=== PATIENT | female | born 1940 | race Caucasian/White ===

== ENCOUNTER → 2017-12-03 10:46 | Outpatient (CLI) | payer MEDICARE, OTHER, SELFPAY ==
[2017-12-03 12:32] LABS: Anion Gap 4 (5-15); BUN 13 mg/dL (7-18); BUN/Creat Ratio 27.3 RATIO (10-20); Calcium,Total 9.8 mg/dL (8.5-10.1); Chloride 102 mmol/L (98-107); Creatinine, Serum 0.48 mg/dL (0.55-1.02); EST Glomerular Filtration Rate 135 mL/min (>60); Est Glom Filt Rate - Afr Amer 163 mL/min (>60); Glucose 89 mg/dL (74-106); Magnesium 1.8 mg/dL (1.6-2.6); Potassium 4.2 mmol/L (3.5-5.1); Sodium Level 138 mmol/L (136-145); Thyroid Stim Hormone (TSH) 1.09 uIU/mL (0.358-3.74)
== END ==
PROVIDERS: Family Provider Family Medicine; PCP Family Medicine; Visit Provider Internal Medicine Cardiovascular Disease
DX: I48.0 Paroxysmal atrial fibrillation (principal)
CPT/HCPCS: 36415; 80048; 83735; 84443

== ENCOUNTER → 2017-12-30 13:11 | Outpatient (CLI) | payer MEDICARE, OTHER, SELFPAY ==
--- NOTE | 2017-12-30 13:16 | RAD_ITS ---
STUDY: X-RAY CHEST REASON FOR EXAM: Female, 77 years old. History of pneumonia and COPD TECHNIQUE: PA and lateral views of the chest. COMPARISON: 09/26/2017 FINDINGS: There is hyperinflation of the lungs consistent with chronic obstructive lung disease (COPD). Stable scarring in the lingula. Mild pleural thickening, resolution of bibasilar opacification. There is no demonstrated pleural abnormality. Normal size heart. Normal mediastinum and chris. Normal visualized pulmonary arteries. There is atherosclerotic calcification of the aortic arch with tortuosity. There is demineralization of the osseous structures. Stable loss of vertebral body height of mid and lower thoracic spine. Normal visualized ribs, clavicles, and shoulders. There is no demonstrated abnormality of the visualized soft tissue structures of the upper abdomen. RAD/Chest PA and Lateral IMPRESSION: Stable COPD with scarring. No pulmonary edema, congestive heart failure or confluent pneumonia. Stable osteoporosis, loss of vertebral body height, arteriosclerosis. Electronically Signed: Dilma Cueva MD at 5:05 EDT , Service support ,
== END ==
PROVIDERS: Family Provider Family Medicine; PCP Family Medicine; Visit Provider Internal Medicine Pulmonary Disease
DX: J44.9 Chronic obstructive pulmonary disease, unspecified (principal); Z87.01 Personal history of pneumonia (recurrent)
CPT/HCPCS: 71046

== ENCOUNTER → 2018-01-11 16:03 | Outpatient (CLI) | payer MEDICARE, OTHER, SELFPAY ==
--- NOTE | 2018-01-11 16:09 | CT_ITS ---
STUDY: CT CHEST WITHOUT CONTRAST REASON FOR EXAM: Female, 77 years old. Respiratory failure. COPD. RADIATION DOSAGE (If Supplied By Facility): CTDIvol = ( 6.79 ) mGy, DLP = ( 281.51 ) mGycm TECHNIQUE: Transaxial imaging was performed without the administration of intravenous contrast material. Individualized dose optimization techniques were used for this CT. COMPARISON: 07/12/2017. FINDINGS: There are severe emphysematous changes of the lungs with emphysematous blebs. In the lung bases, there are ill-defined areas of increased density most consistent with scarring. In both posterior lung bases some areas of probable platelike fibrosis are seen however these make it impossible to exclude mass. As example, there is a lobulated elongated 3.7 cm soft tissue density in the medial left lung base, again probably most likely focal scar but cannot exclude neoplasm. These areas have progressed since previous exam. Suggest short interval follow-up. There is diffuse interstitial and septal thickening. No definite focal infiltrates. No effusions. There is no demonstrated pleural abnormality. Normal heart and pericardium. There are calcifications of the coronary arteries. Normal mediastinum. Normal hilar regions. Normal unenhanced pulmonary arteries. There is atherosclerotic calcification of the aortic arch with tortuosity and elongation of the aortic arch and descending thoracic aorta. There are multi-level degenerative changes of the thoracic spine. There is demineralization. There are numerous partial compression fractures of indeterminate age. Limited views through the upper abdomen show a 2.1 cm low-density mass of the right lobe of the liver that is most likely a cyst but further evaluation is recommended. There is prominent intrahepatic bile duct distention. CT/Chest without Contrast IMPRESSION: Severe emphysema. Probable scarring changes in the lung bases most pronounced on the left. Neoplasm cannot be excluded and follow-up in 4-6 months is recommended. Probable liver cyst and intrahepatic bile duct distention. CT of the abdomen and pelvis with contrast is recommended. Electronically Signed: Glen Carrizales MD at 18:07 EDT , Service support ,
== END ==
PROVIDERS: Family Provider Family Medicine; PCP Family Medicine; Visit Provider Internal Medicine Pulmonary Disease
DX: J44.0 Chronic obstructive pulmonary disease with (acute) lower respiratory infection (principal); J18.9 Pneumonia, unspecified organism; J96.90 Respiratory failure, unspecified, unspecified whether with hypoxia or hypercapnia
CPT/HCPCS: 71250

== ENCOUNTER 2018-01-26 09:31 | Inpatient (IN) | payer MEDICARE, OTHER, SELFPAY ==
[2018-01-26] VITALS (15 sets, daily range): BP systolic 118–156; BP diastolic 65–77; PULSE 74–120; RESP 16–24; TEMP 36.4–37.9; O2SAT 91–99; BMI 18.6; BMI 21.1
--- NOTE | 2018-01-26 09:54 | EKG12_ITS ---
Test Reason : COUGH Blood Pressure : / mmHG Vent. Rate : 099 BPM Atrial Rate : 100 BPM P-R Int : 172 ms QRS Dur : 068 ms QT Int : 310 ms P-R-T Axes : 078 075 048 degrees QTc Int : 397 ms Sinus rhythm with Premature supraventricular complexes Low voltage QRS Borderline ECG Confirmed by EMMANUEL MADRID, GUZMAN ([id number]), sound editor MARSHA VALDOVINOS ([id number]) on 01/28/2018 2:06:05 PM Referred By: DOREEN Confirmed By:GUZMAN BENITEZ MD
--- NOTE | 2018-01-26 09:54 | RAD_ITS ---
STUDY: X-RAY CHEST REASON FOR EXAM: Female, 77 years old. Wheezing, respiratory distress and dyspnea. TECHNIQUE: AP and lateral views of the chest. COMPARISON: CT of the chest dated January 11, 2018. FINDINGS: There is hyperinflation of the lungs consistent with chronic obstructive lung disease (COPD). There are multiple lucencies visible throughout both lungs probably related to emphysema. Appears be right upper lobe airspace disease, possibly representing pneumonia. Curvilinear opacities are visible at the lung bases and may represent sequela pulmonary fibrosis. There is blunting of the costophrenic angles in part possibly related to hyperexpansion of the lungs. No large pleural effusions are visualized. Normal size heart. There is prominence of the right hilar area possibly related to enlargement pulmonary artery. Lymphadenopathy is not excluded. There is prominence of the pulmonary hilar arteries without peripheral pulmonary vascular congestion. There is atherosclerotic calcification of the aortic arch with tortuosity. There is demineralization of the osseous structures. There appear to be multiple compression fractures of the thoracic vertebral bodies. Normal visualized ribs, clavicles, and shoulders. There is no demonstrated abnormality of the visualized soft tissue structures of the upper abdomen. RAD/Chest PA and Lateral IMPRESSION: 1. New patchy right upper lobe airspace disease possibly representing pneumonia. 2. Osteoporosis with multiple compression fractures. 3. COPD and sequela of pulmonary fibrosis. Electronically Signed: Ignacia Rendon MD at 11:19 EDT , Service support ,
[2018-01-26] MEDS: predniSONE 20 MG Tablet 60 MG PO (10:04)
[2018-01-26] MEDS: Albuterol 2.5 MG/3 ML VIAL.NEB. INHALATION ×2 (10:24)
[2018-01-26] MEDS: Ipratropium/Albuterol Sulfate 3 ML AMPUL.NEB INHALATION ×3 (10:24→23:17)
[2018-01-26 10:28] LABS: Absolute Lymphocyte Count 0.44 X10^3/ul (0.83-4.51); Absolute Neutrophil Count 4.8 X10^3/uL (2.0-7.7); Basophil# 0.01 X10^3/uL; Basophil% 0.2 % (0-1); Eosinophil# 0.25 X10^3/uL; Eosinophils% 4.3 % (0-5); Hematocrit 34.6 % (37-47); Hemoglobin 10.5 g/dl (12.0-15.0); Lymphocyte # 0.44 X10^3/ul (4.0); Lymphocyte % 7.5 % (19-41); Mean Corp Hgb Conc 30.3 g/gl (32-36); Mean Corpuscular Hgb 28.5 pg (27.0-32.0); Mean Platelet Vol. 8.8 fl (6.2-12.0); Monocyte# 0.35 X10^3/uL; Neutrophil # 4.79 X10^3/uL (2.7-7.7); Neutrophil % 81.7 % (47-70); Platelet Count 230 K/mm3 (150-450); RBC Distribution Width CV 15.3 % (11.6-14.6); RBC Distribution Width SD 52.3 fl (35.1-43.9); Red Blood Count 3.68 M/mm3 (4.2-5.4); White Blood Count 5.9 K/mm3 (4.4-11.0)
[2018-01-26 10:29] LABS: POSITIVE COUNT NO; POSITIVE DIFFERENTIAL YES; POSITIVE MORPHOLOGY NO
[2018-01-26 10:30] LABS: Differential Indicated SCAN CRITERIA MET
[2018-01-26 10:48] LABS: Anion Gap 6 (5-15); BUN 10 mg/dL (7-18); BUN/Creat Ratio 25.8 RATIO (10-20); Calcium,Total 9.8 mg/dL (8.5-10.1); Chloride 105 mmol/L (98-107); Creatinine, Serum 0.39 mg/dL (0.55-1.02); EST Glomerular Filtration Rate 171 mL/min (>60); Est Glom Filt Rate - Afr Amer 207 mL/min (>60); Estimated Creatinine Clearance 44.55 ml/min; Glucose 87 mg/dL (74-106); Potassium 4.2 mmol/L (3.5-5.1); Sodium Level 143 mmol/L (136-145)
--- NOTE | 2018-01-26 11:36 | ED.VISSUMM ---
- ER Visit Summary Date of Service: 01/26/18 Chief Complaint: Increasing shortness of breath over the past 3 days. History of Present Illness: The patient is a 77 F who presents with increasing shortness of breath and moist nonproductive cough. She reports increased shortness of breath over the past 12 hours. She reports PND early this morning. She 90 chest discomfort. She does complain of dyspnea with exertion. She denies any leg pain or swelling or discoloration. She reports subjective fever with chills. She denies any ocular, visual or auditory symptoms. She does complain of chronic runny nose secondary to allergies. She denies any urologic, dermatologic, endocrine or hematologic symptoms. She denies urticaria or angioedema. She does complain of generalized weakness. She also complains of back spasms that wrap around from right to left. She denies any bowel bladder incontinence. She denies radicular pain. She denies foot drop. She has weakness in her thigh muscles going up or down steps. She states it is difficult for her to walk across the room. 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 There is a history of paroxysmal atrial fibrillation, chronic respiratory failure, hypothyroidism, healthcare acquired pneumonia August 2017, restless leg syndrome, anxiety and superficial thrombophlebitis. There is no history of DVT or PE. Her deboner Dr. Aj Gray. Her cargo vessel stewardess is Dr. Parvez King. She states she has been on prednisone the last 3-6 months. She states that her inhalers were changed recently to a new product. Physical Examination: Vital signs are remarkable for heart rate of 105. She is not febrile, tachypneic and not hypoxic on oxygen. Heart rate is 105 and monitor reveals atrial fibrillation. She appears cachectic. HEENT is negative. Neck is supple with no stridor. Heart is irregular and rapid. She has respiratory distress with use of accessory muscles and retractions. There is rales and rhonchi noted bilaterally with expiratory wheezing. Abdomen is soft nontender. No palpable, pulsatile mass or abdominal bruit. Back is nontender. There is 1+ edema the lower extremities. Skin appears normal in color. She is alert and oriented with a nonfocal neurologic exam. Test Results: Chest x-ray reveals a right upper lobe infiltrate which is new from prior. White count is normal. H&H 10.5 and 34.6. BMP is unremarkable. Troponin less than 0.15. Since patient only has 1 sirs criteria lactate and blood cultures were not obtained. Because there is an infiltrate on her chest x-ray she was treated with levofloxacin. Initially she received a DuoNeb aerosol and multiple albuterol treatments. She also received 60 mg of prednisone. She is still using accessory muscles. Emergency Department Course and Treatment: Workup was undertaken to rule out COPD versus pneumonia versus other cause of her symptoms. Because she complained of PND and EKG and troponin were obtained. Treatment Plan: Since patient has pneumonia still has respiratory distress hospitalist has been paged for admission Disposition: Admit medical surgical floor Impression: 1. Community-acquired pneumonia 2. Exacerbation COPD with bronchospasm 3. Anemia 4. Atrial fibrillation 5. History of hypothyroidism This note was generated with [employer] dictation software. It may contain incorrect words, spelling, and punctuation that were not noted in review of the chart prior to signing ED Disposition - Plan for ED Patient: Chief Complaint: Cough Referrals: Alexey Herman MD [Primary Care Provider] -
--- NOTE | 2018-01-26 11:42 | ED.DCSUM_ITS ---
- ER Visit Summary Date of Service: 01/26/18 Chief Complaint: Increasing shortness of breath over the past 3 days. History of Present Illness: The patient is a 77 F who presents with increasing shortness of breath and moist nonproductive cough. She reports increased shortness of breath over the past 12 hours. She reports PND early this morning. She 90 chest discomfort. She does complain of dyspnea with exertion. She denies any leg pain or swelling or discoloration. She reports subjective fever with chills. She denies any ocular, visual or auditory symptoms. She does complain of chronic runny nose secondary to allergies. She denies any urologic, dermatologic, endocrine or hematologic symptoms. She denies urticaria or angioedema. She does complain of generalized weakness. She also complains of back spasms that wrap around from right to left. She denies any bowel bladder incontinence. She denies radicular pain. She denies foot drop. She has weakness in her thigh muscles going up or down steps. She states it is difficult for her to walk across the room. 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 There is a history of paroxysmal atrial fibrillation, chronic respiratory failure, hypothyroidism, healthcare acquired pneumonia August 2017, restless leg syndrome, anxiety and superficial thrombophlebitis. There is no history of DVT or PE. Her band cutting machine operator Dr. Aj Gray. Her restaurant front manager is Dr. Parvez King. She states she has been on prednisone the last 3-6 months. She states that her inhalers were changed recently to a new product. Physical Examination: Vital signs are remarkable for heart rate of 105. She is not febrile, tachypneic and not hypoxic on oxygen. Heart rate is 105 and monitor reveals atrial fibrillation. She appears cachectic. HEENT is negative. Neck is supple with no stridor. Heart is irregular and rapid. She has respiratory distress with use of accessory muscles and retractions. There is rales and rhonchi noted bilaterally with expiratory wheezing. Abdomen is soft nontender. No palpable, pulsatile mass or abdominal bruit. Back is nontender. There is 1+ edema the lower extremities. Skin appears normal in color. She is alert and oriented with a nonfocal neurologic exam. Test Results: Chest x-ray reveals a right upper lobe infiltrate which is new from prior. White count is normal. H&H 10.5 and 34.6. BMP is unremarkable. Troponin less than 0.15. Since patient only has 1 sirs criteria lactate and blood cultures were not obtained. Because there is an infiltrate on her chest x -ray she was treated with levofloxacin. Initially she received a DuoNeb aerosol and multiple albuterol treatments. She also received 60 mg of prednisone. She is still using accessory muscles. Emergency Department Course and Treatment: Workup was undertaken to rule out COPD versus pneumonia versus other cause of her symptoms. Because she complained of PND and EKG and troponin were obtained. Treatment Plan: Since patient has pneumonia still has respiratory distress hospitalist has been paged for admission Disposition: Admit medical surgical floor Impression: 1. Community-acquired pneumonia 2. Exacerbation COPD with bronchospasm 3. Anemia 4. Atrial fibrillation 5. History of hypothyroidism This note was generated with [employer] dictation software. It may contain incorrect words, spelling, and punctuation that were not noted in review of the chart prior to signing ED Disposition - Plan for ED Patient: Chief Complaint: Cough Referrals: Alexey Herman MD [Primary Care Provider] -
[2018-01-26] MEDS: levoFLOXacin IV 750 MG/150 ML BAG 100 MG IV (11:59)
--- NOTE | 2018-01-26 12:15 | CM.ED ---
CM INITIAL ASSESSMENT: Patient is currently in the ED with spouse, Kedar, at bedside. Both are agreeable to interview at this time. Home: Patient lives in a one story home with her . There are three steps, with a rail, to get into the home. HHS/Aides: Patient states that she had home health therapy services after an admission in August 2017. These services were provided by [facility]. DME: Patient states she uses a walker. Denies further DME. Kedar states that she stands in the shower with the walker when he bathes her. Home Oxygen: Patient states she is currently wearing 3 L continuous oxygen, from [facility]. However, Kedar states that yesterday he signed paperwork to switch to [facility] as provider. He states that Dr. King has prescribed for the patient to wear BiPAP during the daytime. I questioned whether he meant to wear at night and he verified that Dr. King said for daytime use. Call placed to [facility] and they confirmed that the order for transfer from [facility] is in process and the script for BiPAP is with 3L bled in. Pharmacy: [facility] in [place]. Advance Directives: Denies having any advance directives. Patient would like assistance completing these forms during her admission. Social work referral made. PCP: Alexey Herman Specialists: Dr. King, Dr. Gray, Dr. Villalobos (Patient states she was scheduled to have a colonoscopy for irregular bowels, but was unable to have procedure done d/t a back problem.) DC Plan: Patient states she would like to return home upon discharge. Patient and spouse do state they feel she may benefit from further home health therapy. Case management will continue to follow for safe and effective discharge planning.
[2018-01-26] MEDS: 0.45% Normal Saline 1,000 ML 75 ML IV (13:20)
[2018-01-26 13:53] LABS: Immature Platelet Fraction 1.4 % (1.0-7.9); RET-HE 24.2 pg (30-35); Reticulocyte Count 1.04 % (0.5-1.5)
[2018-01-26 14:00] LABS: AST(SGOT) 22 U/L (15-37); Alanine Aminotransfer ALT/SGPT 30 U/L (13-56); Albumin, Serum 2.9 g/dL (3.2-5.0); Alkaline Phosphatase 127 U/L (45-117); Bilirubin, Direct 0.12 mg/dL (0.00-0.30); Ferritin 50 ng/mL (8-252); Globulin 3.2 g/dL (2.2-4.2); Iron 15 ug/dL (50-170); Iron Binding Capacity,Total 275 ug/dL (250-450); Magnesium 1.4 mg/dL (1.6-2.6); PERCENT IRON SATURATION 5.5 % (15.0-55.0); Phosphorus 2.5 mg/dL (2.5-4.9); Protein, Total 6.1 g/dL (6.4-8.2)
[2018-01-26] MEDS: 0.9% NaCl Peripheral Flush Adult/Peds IV (15:19)
[2018-01-26] MEDS: busPIRone 5 MG Tablet PO ×2 (15:19→21:40)
[2018-01-26] MEDS: Loratadine 10 MG Tablet PO (15:19)
[2018-01-26] MEDS: Acetaminophen 325 MG Tablet 650 MG PO (15:53)
[2018-01-26] MEDS: Montelukast 10 MG Tablet PO (18:00)
[2018-01-26] MEDS: Rivaroxaban 20 MG Tablet PO (18:00)
[2018-01-26] MEDS: Calcium Carb/Vitamin D 1 TABLET Tablet PO (18:01)
--- NOTE | 2018-01-26 20:17 | PCM.HP.STD ---
Problem List (1) CAP (community acquired pneumonia) Status: Acute Qualifiers: Laterality: right (2) COPD with acute exacerbation Status: Acute (3) Normochromic normocytic anemia Status: Chronic (4) Iron deficiency Status: Chronic (5) Osteoporosis Status: Suspected (6) Vertebral compression fracture Status: Chronic (7) History of malnutrition Status: Chronic (8) Restless leg syndrome Status: Chronic (9) Hypothyroidism Status: Chronic (10) Anxiety and depression Status: Chronic (11) Insomnia Status: Chronic (12) COPD (chronic obstructive pulmonary disease) Status: Chronic (13) Chronic respiratory failure with hypoxia Status: Chronic (14) Paroxysmal atrial fibrillation Status: Chronic (15) Hypomagnesemia Status: Acute History of Present Illness Date of Admission: 01/26/18 Chief Complaint: SOB The patient is a 77 year old F with a past medical history of COPD, chronic respiratory failure with hypoxemia, hypothyroidism, anxiety/depression, suspected osteoporosis, multiple thoracic vertebral compression fractures, history of malnutrition, paroxysmal atrial fibrillation, restless leg syndrome and seasonal allergies who presented to the Ed at [facility] on 01/26/18 c/o increasing SOB and a dry non-productive cough. She also complained of feeling alternately hot and then chilled. She has had clear rhinorrhea, sneezing and watery eyes lately and she has a hx of allergies....she stated Dr. Gray took her off her allergy medicine ( she was on Claritin D and the decongestant was causing AF. Vital signs at presentation to the emergency room were temperature 97.5, heart rate 105, blood pressure 156/77, respiratory rate 16 and she was 99% saturated on a 3 L nasal cannula. Temperature later increased to 100.2?F. White blood cell count is normal at 5.9 but she has a left shift with 82% neutrophils. Hemoglobin is 10.5 and in August 2017 it was 11.1. Platelets are within normal limits. The MCV is 94 but the RDW is increased at 15.3 and this is new. Reticulocyte count is not elevated. Electrolytes were within normal limits and the BUN was 10 with a creatinine of 0.39. Magnesium is low at 1.4. Serum iron is low at 15 and the TIBC is 275. Iron saturation is 5.5 and the ferritin is 50. Troponin was within normal limits and the LFTs were unremarkable with the exception of a mild increase in alkaline phosphatase to 127. Chest x-ray showed a new patchy right upper lobe infiltrate and evidence of osteoporosis with multiple compression fractures. She is being admitted to the hospital for acute exacerbation of COPD and right upper lobe pneumonia. Past Medical History Past Medical History (Chronic Problems): Chronic Problems (Last Reviewed 12/03/17 @ 10:29 by Aj Gray MD) Normochromic normocytic anemia (Chronic) Iron deficiency (Chronic) Vertebral compression fracture (Chronic) History of malnutrition (Chronic) Restless leg syndrome (Chronic) Hypothyroidism (Chronic) Anxiety and depression (Chronic) Insomnia (Chronic) Paroxysmal atrial fibrillation (Chronic) COPD (chronic obstructive pulmonary disease) (Chronic) Chronic respiratory failure with hypoxia (Chronic) Allergies amoxicillin trihydrate [From Augmentin] Allergy (Verified 12/03/17 09:51) Rash gluten Allergy (Verified 12/03/17 09:51) Other potassium clavulanate [From Augmentin] Allergy (Verified 12/03/17 09:51) Rash risperidone [From Risperdal] Adverse Reaction (Severe, Verified 12/03/17 09:51) Other GOES CRAZY HALLICINATE esomeprazole magnesium [From Nexium] Adverse Reaction (Verified 12/03/17 09:51) Unknown furosemide [From Lasix] Adverse Reaction (Verified 12/03/17 09:51) CONFUSION CONFUSION Sulfa (Sulfonamide Antibiotics) Adverse Reaction (Verified 12/03/17 09:51) CONFUSION CONFUSION sulfamethoxazole [From Bactrim] Adverse Reaction (Verified 12/03/17 09:51) CONFUSION CONFUSION trimethoprim [From Bactrim] Adverse Reaction (Verified 12/03/17 09:51) CONFUSION CONFUSION Home Medications: Ambulatory Orders Medication Instructions Recorded Levothyroxine [Synthroid] 50 mcg PO DAILY 07/12/17 busPIRone [Buspar] 5 mg PO TID 07/23/17 Acetaminophen [Tylenol Tablet] 650 mg PO Q6H PRN PRN 09/13/17 Albuterol Aerosols [Ventolin 2.5 mg INHALATION Q2H PRN PRN 09/13/17 Aerosols] vial.neb. Guaifenesin [Mucinex] 1,200 mg PO BID 09/13/17 Sertraline HCl [Zoloft] 50 mg PO DAILY 09/13/17 Famotidine [Pepcid] 20 mg PO BID #60 tab 09/24/17 Hydrocortisone [Anusol Hc] 25 mg RECTAL TID PRN PRN #90 09/24/17 suppos. magnesium oxide 400 mg tablet 400 mg PO DAILY #90 tab 12/03/17 metoprolol tartrate 25 mg tablet 25 mg PO DAILY #90 tab 12/03/17 rivaroxaban 20 mg tablet 20 mg PO DINNER #90 tab 12/03/17 roflumilast 500 mcg tablet 500 mcg PO QDAY 12/03/17 Calcium Carb/Vitamin D [Os-Bud 1 tablet PO TIDCM 01/26/18 500MG + D] Fluticasone/Vilanterol [Breo 1 puff INHALATION DAILY 01/26/18 Ellipta 200-25 Mcg INH] Iron Polysaccharide Complex 150 mg PO DAILYCM 01/26/18 [Ferrex 150] Menthol/Lanolin/Calamine/Znox 1 applic TOPICAL 0600,2200 01/26/18 [Calmoseptine Ointment] Potassium Chloride 20 meq PO BID 01/26/18 Roflumilast [Daliresp] 1 tab PO DAILY 01/26/18 Umeclidinium [place] [Incruse 1 puff INHALATION DAILY 01/26/18 Ellipta] traZODone [Desyrel] 100 mg PO QHS 01/26/18 Surgical History: noncontributory Psychiatric History: Anxiety, Depression ANALYSIS TESTER History: No pertinent ANALYSIS TESTER history Lives: Spouse/ Significant Other Smoking Status: Former smoker Tobacco Use: Non-smoker Alcohol: Rare Drugs: None - *Family History Maternal History Items: No pertinent history Paternal History Items: No pertinent history Review of Systems Constitutional: Reports: Anorexia, Chills, Weakness Eyes: Denies: Blurred vision, Vision Change HEENT: Reports: Sore Throat, - - Clear rhinorrhea and increased sneezing. Denies: Head Aches, Sinus Congestion, Sinus Drainage Cardiovascular: Denies: Chest Pain, Edema, Heaviness, Light Headedness, Palpitations, Syncope Respiratory: Reports: Cough, Shortness of Breath, - - She has sputum but is unable to cough it up, - - Increased wheezing Gastrointestinal: Denies: Abdominal Pain, Nausea, Vomiting Genitourinary: Denies: Dysuria Musculoskeletal: Denies: Joint Pain, Joint swelling, Joint Tenderness Skin: Denies: Jaundice, Rash, Wounds Neurological: Denies: Balance problems, Slurred speech, Difficulty swallowing, Focal weakness, Numbness, Tingling Psychiatric: Reports: Anxiety, Depression, Suicidal Ideations Endocrine: Denies: Change in Body Habitus Hematologic/ Lymphatic: Denies: Hx of blood clot VTE Information - Inpt Only VTE Present on Admission: No VTE Mechan Device Prophylaxis: None - She is on Xarelto for atrial fibrillation VTE Pharm Prophylaxis ordered?: No Reason prophylaxis not ordered:: Treatment Not Indicated Patient Problems: Active and Suspected Problems (Last Reviewed 12/03/17 @ 10:29 by Aj Gray MD) CAP (community acquired pneumonia) (Acute) COPD with acute exacerbation (Acute) Osteoporosis (Suspected) Hypomagnesemia (Acute) - Physical Exam General: Alert, Oriented x3, Cooperative, - - thin and somewhat cachectic in appearnace HEENT: Atraumatic, PERRLA, EOMI, Normocephalic, - - no exudate in the posterior pharnyx Oral: Moist Mucosa, No Gingival or Mucosal Lesions/ Ulcerations Neck: Supple, No JVD, No Nodes, No Nuchal Rigidity, Trachea Midline Lungs: No rhonchi, No wheeze, No rales, Diminished - throughout, Tachypneic, - - Mild conversational dyspnea, symmetric chest expansion, no accessory muscle use Cardiovascular: Regular Rhythm, Normal S1, Normal S2, No rub noted, No Gallop, - - She is having frequent ectopic beats Abdomen: Bowel Sounds Present, Soft, Non Tender, Non-Distended Extremities: No clubbing, No cyanosis, No edema, No Calf Tenderness Skin: No rashes, No breakdown Musculoskeletal: Muscle Wasting Neurological: Cranial nerves II-XII grossly intact, Neuro grossly intact Psych/Mental Status: Normal Affect, Appropriate Vital Signs Temp Pulse Resp BP Pulse Ox 100.2 F H 91 24 H 118/65 93 01/26/18 15:23 01/26/18 18:00 01/26/18 17:15 01/26/18 15:23 01/26/18 17:15 Oxygen Flow Rate (L/min) 2 Oxygen Delivery Method Nasal Cannula Weight: 134 lb 14.766 oz Body Mass Index (BMI) 21.1 Intake and Output for Last 24 Hours 01/24/18 01/25/18 01/26/18 23:59 23:59 23:59 Intake Total 602 / 602 Balance 602 / 602 Microbiology Past 72 Hours 01/26/18 15:10 Influenza Types A,B Direct FA (EDUIN) - Final Mucosa - Nasopharyngeal Assessment/Plan Active and Suspected Problems (Last Reviewed 12/03/17 @ 10:29 by Aj Gray MD) CAP (community acquired pneumonia) (Acute) COPD with acute exacerbation (Acute) Osteoporosis (Suspected) Hypomagnesemia (Acute) Impressions 1. RUL CAP 2. acute exacerbation COPD 3. Osteoporosis 4. iron deficiency 5. vertebral compression fractures 6. History of malnutrition-not currently malnourished 7. Restless leg syndrome 8. Hypothyroidism 9. Anxiety/depression 10. Insomnia 11. Chronic respiratory failure with hypoxia 12. Paroxysmal atrial fibrillation 13. Seasonal allergies Started on Azithromycin and Rocephin IV Solu-medrol and transition to prednisone after 4 doses Aerosolized bronchodilators Check iron studies Famotidine for GI prophylaxis Lactobacillus twice daily Start loratadine 10 mg daily Start Atrovent nasal spray Discontinue pseudoephedrine Continue Xarelto Recheck the lab in the AM Code Visit Inpatient E&M: 21549 Init Hosp L2
[2018-01-26] MEDS: Metoprolol Tartrate 25 MG Tablet PO (21:40)
[2018-01-26] MEDS: traZODone 50 MG Tablet 100 MG PO (21:41)
[2018-01-26] MEDS: guaiFENesin 1,200 MG Tablet 1200 MG PO (21:43)
[2018-01-27] VITALS (16 sets, daily range): BP systolic 121–134; BP diastolic 57–67; PULSE 72–100; RESP 15–20; TEMP 36–37; O2SAT 93–95
[2018-01-27 06:07] LABS: Hematocrit 31.2 % (37-47); Hemoglobin 9.6 g/dl (12.0-15.0); Mean Corp Hgb Conc 30.8 g/gl (32-36); Mean Corpuscular Hgb 28.7 pg (27.0-32.0); Mean Corpuscular Volume 93.4 fL (81-99); Mean Platelet Vol. 9.1 fl (6.2-12.0); Platelet Count 267 K/mm3 (150-450); RBC Distribution Width SD 49.3 fl (35.1-43.9); Red Blood Count 3.34 M/mm3 (4.2-5.4); White Blood Count 2.9 K/mm3 (4.4-11.0)
[2018-01-27 06:08] LABS: Scan Indicated on CBC? Y/N NO
[2018-01-27 06:26] LABS: Anion Gap 5 (5-15); BUN 12 mg/dL (7-18); Calcium,Total 9.5 mg/dL (8.5-10.1); Chloride 107 mmol/L (98-107); Creatinine, Serum 0.38 mg/dL (0.55-1.02); EST Glomerular Filtration Rate 178 mL/min (>60); Est Glom Filt Rate - Afr Amer 215 mL/min (>60); Estimated Creatinine Clearance 46.24 ml/min; Glucose 123 mg/dL (74-106); Magnesium 2.4 mg/dL (1.6-2.6); Phosphorus 2.8 mg/dL (2.5-4.9); Potassium 4.6 mmol/L (3.5-5.1); Sodium Level 142 mmol/L (136-145)
[2018-01-27] MEDS: Alendronate Sodium 70 MG Tablet PO (06:27)
[2018-01-27] MEDS: busPIRone 5 MG Tablet PO ×3 (06:27→21:40)
[2018-01-27] MEDS: Levothyroxine 50 MCG Tablet PO (06:27)
[2018-01-27] MEDS: Ipratropium/Albuterol Sulfate 3 ML AMPUL.NEB INHALATION ×3 (07:11→19:11)
--- NOTE | 2018-01-27 08:43 | PN_ITS ---
Patient Problems: Active and Suspected Problems (Last Reviewed 12/03/17 @ 10:29 by Aj Gray MD ) CAP (community acquired pneumonia) (Acute) COPD with acute exacerbation (Acute) Osteoporosis (Suspected) Hypomagnesemia (Acute) Subjective: Day #2 antibiotics -ceftriaxone and azithromycin All events the past 24 hours of been reviewed. T-max is 100.2?F. Current temp is 96.8. Vital signs are stable and she is 95% saturated on a 3 L nasal cannula. She uses 4 L/min at home. White blood cell count today is decreased at 2.9 with a hemoglobin of 9.6 and normal platelets. Magnesium is 2.4 today, up from 1.4 on 01/26/2018 following supplementation. Iron studies were consistent with iron deficiency. Electrolytes today are within normal limits and the BUN is 12 with a creatinine of 0.38. Influenza swab was negative and the sputum Gram stain and culture are pending. She states she is more SOB today, rachel with PT. She also seems to be more sleepy today Objective: - Physical Exam General: Alert, Oriented x3, Cooperative, - - thin and somewhat cachectic in appearance. Sleepy today and more pale HEENT: Atraumatic, PERRLA, EOMI, Normocephalic, - - no exudate in the posterior pharnyx Oral: Moist Mucosa, No Gingival or Mucosal Lesions/ Ulcerations Neck: Supple, No JVD, No Nodes, No Nuchal Rigidity, Trachea Midline Lungs: No rhonchi, expiratory wheezing today, No rales, Diminished - throughout , Tachypneic, - - Increased conversational dyspnea, symmetric chest expansion, no accessory muscle use Cardiovascular: Regular Rhythm, Normal S1, Normal S2, No rub noted, No Gallop, - - She is having frequent ectopic beats....telemetry shows SR with ST at times Abdomen: Bowel Sounds Present, Soft, Non Tender, Non-Distended Extremities: No clubbing, No cyanosis, No edema, No Calf Tenderness Skin: No rashes, No breakdown Musculoskeletal: Muscle Wasting Neurological: Cranial nerves II-XII grossly intact, Neuro grossly intact Psych/Mental Status: Normal Affect, Appropriate - Physical Exam Vital Signs Temp Pulse Resp BP Pulse Ox 96.8 F L 72 15 121/62 H 95 01/27/18 04:00 01/27/18 06:00 01/27/18 04:00 01/27/18 04:00 01/27/18 04:00 Oxygen Flow Rate (L/min) 3 Oxygen Delivery Method Nasal Cannula Weight: 134 lb 14.766 oz Body Mass Index (BMI) 21.1 Intake and Output for Last 24 Hours 01/25/18 01/26/18 01/27/18 23:59 23:59 23:59 Intake Total 602 / 602 924 / 924 Output Total 700 / 700 Balance 602 / 602 224 / 224 Microbiology Past 72 Hours 01/26/18 17:20 Gram Stain - Preliminary Sputum, Expectorated/Coughed 01/26/18 15:10 Influenza Types A,B Direct FA (EDUIN) - Final Mucosa - Nasopharyngeal Laboratory Tests Past 24 Hrs 01/27/18 01/27/18 05:36 05:36 WBC 2.9 L RBC 3.34 L Hgb 9.6 L Hct 31.2 L MCV 93.4 MCH 28.7 MCHC 30.8 L RDW 15.0 H RDW Differential 49.3 H Plt Count 267 MPV 9.1 Sodium 142 Potassium 4.6 Chloride 107 Carbon Dioxide 30.0 Anion Gap 5 BUN 12 Creatinine 0.38 L Estim Creat Clear Calc 46.24 Est GFR (MDRD) Af Amer 215 Est GFR (MDRD) Non-Af 178 BUN/Creatinine Ratio 32.0 H Glucose 123 H Calcium 9.5 Phosphorus 2.8 Magnesium 2.4 Medical Necessity - Tobacco Use Smoking Status: Former smoker Tobacco Use: Non-smoker Assessment/Plan Active and Suspected Problems (Last Reviewed 12/03/17 @ 10:29 by Aj Gray MD ) CAP (community acquired pneumonia) (Acute) COPD with acute exacerbation (Acute) Osteoporosis (Suspected) Hypomagnesemia (Acute) Impressions 1. RUL CAP - on Rocephin and Azithromycin 2. acute exacerbation COPD 3. Osteoporosis 4. iron deficiency anemia - started Venofer 5. vertebral compression fractures 6. History of malnutrition-not currently malnourished 7. Restless leg syndrome 8. Hypothyroidism 9. Anxiety/depression 10. Insomnia 11. Chronic respiratory failure with hypoxia 12. Paroxysmal atrial fibrillation 13. Seasonal allergies converted to Prednisone today and is worse....will restart the Solu-Medrol DC the claritin - it may be making her sleepy Continue Rocephin and azithromycin Recheck lab in the a.m. Await the results of the sputum culture Respiratory panel Code Visit Inpatient E&M: 22554 Subs Hosp L2
[2018-01-27] MEDS: Iron Polysaccharide Complex 150 MG CAPSULE PO (10:10)
[2018-01-27] MEDS: Ceftriaxone 1 GM/50 ML BAG IV (10:10)
[2018-01-27] MEDS: Calcium Carb/Vitamin D 1 TABLET Tablet PO ×3 (10:12→16:39)
[2018-01-27] MEDS: Polyethylene Glycol 3350 17 GM PACKET PO (10:12)
[2018-01-27] MEDS: Loratadine 10 MG Tablet PO (10:12)
[2018-01-27] MEDS: Famotidine 20 MG Tablet PO (10:13)
[2018-01-27] MEDS: guaiFENesin 1,200 MG Tablet 1200 MG PO ×2 (10:13→21:38)
[2018-01-27] MEDS: Sertraline 50 MG Tablet PO (10:16)
[2018-01-27] MEDS: Magnesium Oxide 400 MG Tablet PO (10:17)
[2018-01-27] MEDS: Metoprolol Tartrate 25 MG Tablet PO ×2 (10:23→21:35)
[2018-01-27] MEDS: Rivaroxaban 20 MG Tablet PO (16:39)
[2018-01-27] MEDS: Montelukast 10 MG Tablet PO (16:39)
--- NOTE | 2018-01-27 17:07 | CASEMGMT ---
Social Work Note Per RN VALENTIN Keene pt is interested in completing Advanced Directives. SW in to see pt and to complete Advanced Directives. Brittany WONG witnessed pt's signature as did this worker. Pt denied additional needs or concerns at this time. Plan: Home Rachel De Los Santos PHOTOGRAMMETRIST, [employer]SEM[employer]ER
[2018-01-27] MEDS: traZODone 50 MG Tablet 100 MG PO (21:39)
[2018-01-28] VITALS (14 sets, daily range): BP systolic 113–146; BP diastolic 59–88; PULSE 73–100; RESP 16–24; TEMP 36.9–37.3; O2SAT 92–100
[2018-01-28] MEDS: Ipratropium/Albuterol Sulfate 3 ML AMPUL.NEB INHALATION ×4 (01:20→19:20)
--- NOTE | 2018-01-28 05:10 | RAD_ITS ---
STUDY: X-RAY CHEST REASON FOR EXAM: Female, 77 years old. History of pneumonia. TECHNIQUE: AP and lateral views of the chest. COMPARISON: Comparison is made with prior study dated January 28, 2018. FINDINGS: EKG electrodes are seen. Hyperinflation. Stable patchy infiltrates in the right upper lobe as well as in both lung bases. Blunting of both costophrenic angles. Normal size heart. Normal mediastinum and chris. Normal visualized pulmonary arteries. There is atherosclerotic calcification of the aortic arch with tortuosity. There is demineralization of the osseous structures. Normal visualized ribs, clavicles, and shoulders. There is no demonstrated abnormality of the visualized soft tissue structures of the upper abdomen. RAD/Chest PA and Lateral IMPRESSION: Hyperinflation. Stable bilateral patchy infiltrates. Electronically Signed: Ho Schumacher MD at 14:33 EDT Tel [phone], Service support ,
[2018-01-28 05:44] LABS: Absolute Lymphocyte Count 0.29 X10^3/ul (0.83-4.51); Absolute Neutrophil Count 4.3 X10^3/uL (2.0-7.7); Hematocrit 35.7 % (37-47); Lymphocyte # 0.29 X10^3/ul (4.0); Lymphocyte % 5.6 % (19-41); Mean Corp Hgb Conc 30.8 g/gl (32-36); Mean Corpuscular Volume 94.2 fL (81-99); Monocyte# 0.61 X10^3/uL; Monocyte% 11.7 % (0-10); Neutrophil # 4.28 X10^3/uL (2.7-7.7); Neutrophil % 82.1 % (47-70); Platelet Count 282 K/mm3 (150-450); RBC Distribution Width CV 15.4 % (11.6-14.6); RBC Distribution Width SD 51.1 fl (35.1-43.9); Red Blood Count 3.79 M/mm3 (4.2-5.4); White Blood Count 5.2 K/mm3 (4.4-11.0)
[2018-01-28 05:45] LABS: Differential Indicated SCAN CRITERIA MET; POSITIVE COUNT NO; POSITIVE DIFFERENTIAL YES; POSITIVE MORPHOLOGY NO
[2018-01-28 05:50] LABS: Anion Gap 4 (5-15); BUN 15 mg/dL (7-18); BUN/Creat Ratio 31.4 RATIO (10-20); Calcium,Total 9.9 mg/dL (8.5-10.1); Chloride 106 mmol/L (98-107); Creatinine, Serum 0.48 mg/dL (0.55-1.02); EST Glomerular Filtration Rate 135 mL/min (>60); Est Glom Filt Rate - Afr Amer 163 mL/min (>60); Estimated Creatinine Clearance 46.24 ml/min; Glucose 93 mg/dL (74-106); Potassium 4.3 mmol/L (3.5-5.1); Sodium Level 144 mmol/L (136-145)
[2018-01-28] MEDS: busPIRone 5 MG Tablet PO ×3 (06:22→21:57)
[2018-01-28] MEDS: Levothyroxine 50 MCG Tablet PO (06:22)
[2018-01-28] MEDS: Sertraline 50 MG Tablet PO (10:41)
[2018-01-28] MEDS: Famotidine 20 MG Tablet PO (10:41)
[2018-01-28] MEDS: Metoprolol Tartrate 25 MG Tablet PO ×2 (10:41→21:56)
[2018-01-28] MEDS: predniSONE 20 MG Tablet 40 MG PO (10:41)
[2018-01-28] MEDS: Loratadine 10 MG Tablet PO (10:41)
[2018-01-28] MEDS: guaiFENesin 1,200 MG Tablet 1200 MG PO ×2 (10:41→21:56)
[2018-01-28] MEDS: Calcium Carb/Vitamin D 1 TABLET Tablet PO ×3 (10:42→17:49)
[2018-01-28] MEDS: Magnesium Oxide 400 MG Tablet PO (10:42)
[2018-01-28] MEDS: Iron Polysaccharide Complex 150 MG CAPSULE PO (10:42)
[2018-01-28] MEDS: Ceftriaxone 1 GM/50 ML BAG IV (10:48)
--- NOTE | 2018-01-28 14:03 | CASEMGMT ---
ETHEL HANSON reviewed discharge plans with the patient. Patient states that she may be interested in HHC and would [facility] but wanted to discuss with . Patient was agreeable for ETHEL HANSON to send referral and setup HHC with [facility], but could always cancel. Referral sent to [facility] and they are able to accept the patient. CM will continue to follow this patient and plan for safe discharge.
[2018-01-28] MEDS: Rivaroxaban 20 MG Tablet PO (17:49)
[2018-01-28] MEDS: Montelukast 10 MG Tablet PO (17:49)
[2018-01-28] MEDS: traZODone 50 MG Tablet 100 MG PO (21:56)
[2018-01-28] MEDS: 0.9% NaCl Peripheral Flush Adult/Peds IV (21:58)
[2018-01-29] VITALS (18 sets, daily range): BP systolic 130–150; BP diastolic 59–83; PULSE 68–124; RESP 16–22; TEMP 36.8–37.2; O2SAT 92–98
[2018-01-29] MEDS: Ipratropium/Albuterol Sulfate 3 ML AMPUL.NEB INHALATION ×5 (00:55→22:48)
[2018-01-29] MEDS: busPIRone 5 MG Tablet PO ×3 (06:13→22:23)
[2018-01-29] MEDS: Levothyroxine 50 MCG Tablet PO (06:13)
[2018-01-29] MEDS: 0.9% NaCl Peripheral Flush Adult/Peds IV ×5 (06:13→22:24)
[2018-01-29 07:20] LABS: Hematocrit 37.3 % (37-47); Hemoglobin 11.2 g/dl (12.0-15.0); Mean Corpuscular Hgb 28.4 pg (27.0-32.0); Mean Corpuscular Volume 94.7 fL (81-99); Platelet Count 279 K/mm3 (150-450); RBC Distribution Width CV 15.4 % (11.6-14.6); RBC Distribution Width SD 53.3 fl (35.1-43.9); Red Blood Count 3.94 M/mm3 (4.2-5.4); White Blood Count 4.5 K/mm3 (4.4-11.0)
[2018-01-29 07:33] LABS: ALB/GLOB Ratio 0.9 RATIO (0.9-2.4); AST(SGOT) 24 U/L (15-37); Alanine Aminotransfer ALT/SGPT 41 U/L (13-56); Albumin, Serum 2.9 g/dL (3.2-5.0); Alkaline Phosphatase 117 U/L (45-117); Anion Gap 5 (5-15); BUN 12 mg/dL (7-18); BUN/Creat Ratio 29.8 RATIO (10-20); Chloride 102 mmol/L (98-107); EST Glomerular Filtration Rate 163 mL/min (>60); Est Glom Filt Rate - Afr Amer 198 mL/min (>60); Estimated Creatinine Clearance 46.24 ml/min; Globulin 3.3 g/dL (2.2-4.2); Glucose 113 mg/dL (74-106); Magnesium 1.7 mg/dL (1.6-2.6); Phosphorus 3.2 mg/dL (2.5-4.9); Potassium 4.5 mmol/L (3.5-5.1); Protein, Total 6.2 g/dL (6.4-8.2); Sodium Level 142 mmol/L (136-145)
[2018-01-29 07:35] LABS: Scan Indicated on CBC? Y/N NO
[2018-01-29] MEDS: Calcium Carb/Vitamin D 1 TABLET Tablet PO ×3 (08:00→17:04)
[2018-01-29] MEDS: Iron Polysaccharide Complex 150 MG CAPSULE PO (08:00)
--- NOTE | 2018-01-29 08:50 | PCM.PROGNOTE ---
Patient Problems: Active and Suspected Problems (Last Reviewed 12/03/17 @ 10:29 by Aj Gray MD) CAP (community acquired pneumonia) (Acute) COPD with acute exacerbation (Acute) Osteoporosis (Suspected) Hypomagnesemia (Acute) Subjective: Chief complaint: Follow-up after admission for right upper lobe community-acquired pneumonia and COPD exacerbation. Patient seen and examined. No acute events overnight. This morning, she complained of increasing shortness of breath at rest. She denied cough or sputum production. Although she has been on 3 L of oxygen which is same at home, she mentioned that she is more short of breath than usual, getting more short of breath on minimal exertion. Denied chest pain or palpitations. Vital signs are stable, afebrile, pulse ox is 95% on 3 L. - Physical Exam General: Alert, Oriented x3, Cooperative, - - Moderately short of breath. HEENT: Atraumatic, PERRLA, EOMI Oral: Moist Mucosa, No Gingival or Mucosal Lesions/ Ulcerations Neck: Supple, No JVD, Negative Carotid Bruits, Trachea Midline, Thyroid Normal Size and Texture Lungs: Diminished, Rales, Rhonchi, Short of Breath, Tachypneic, - - Decreased breath sounds bilateral, more at the bases, faint crackles at the bases. Cardiovascular: Regular rate, Regular Rhythm, Normal S1, Normal S2, PMI Normal Abdomen: Bowel Sounds Present, Soft, Non Tender, Non-Distended, No Hepato-splenomegaly Extremities: No clubbing, No cyanosis, No edema Skin: No rashes, No breakdown Lymphatic: No Cervical, Supraclavicular, or Inguinal Adenopathy Neurological: Cranial nerves II-XII grossly intact, Motor Exam 5/5 strength throughout Psych/Mental Status: Normal Affect, Appropriate, Alert and oriented to time, place, person, mood and affect Vital Signs Temp Pulse Resp BP Pulse Ox 98.2 F 72 20 H 138/79 H 92 01/29/18 07:57 01/29/18 07:57 01/29/18 07:57 01/29/18 07:57 01/29/18 07:57 Oxygen Flow Rate (L/min) 3 Oxygen Delivery Method Nasal Cannula Weight: 134 lb 14.766 oz Body Mass Index (BMI) 21.1 Intake and Output for Last 24 Hours 01/27/18 01/28/18 01/29/18 23:59 23:59 23:59 Intake Total 924 / 924 1911 1400 / 1400 Output Total 700 / 700 Balance 224 / 224 1911 1400 / 1400 Microbiology Past 72 Hours 01/26/18 17:20 Gram Stain - Final Sputum, Expectorated/Coughed 01/26/18 15:10 Influenza Types A,B Direct FA (EDUIN) - Final Mucosa - Nasopharyngeal Laboratory Tests Past 24 Hrs 01/29/18 01/29/18 06:50 06:50 WBC 4.5 RBC 3.94 L Hgb 11.2 L Hct 37.3 MCV 94.7 MCH 28.4 MCHC 30.0 L RDW 15.4 H RDW Differential 53.3 H Plt Count 279 MPV 9.0 Sodium 142 Potassium 4.5 Chloride 102 Carbon Dioxide 35.0 H Anion Gap 5 BUN 12 Creatinine 0.40 L Estim Creat Clear Calc 46.24 Est GFR (MDRD) Af Amer 198 Est GFR (MDRD) Non-Af 163 BUN/Creatinine Ratio 29.8 H Glucose 113 H Calcium 10.0 Phosphorus 3.2 Magnesium 1.7 Total Bilirubin 0.50 AST 24 ALT 41 Alkaline Phosphatase 117 Total Protein 6.2 L Albumin 2.9 L Globulin 3.3 Albumin/Globulin Ratio 0.9 Medical Necessity - Tobacco Use Smoking Status: Former smoker Tobacco Use: Non-smoker Assessment/Plan Active and Suspected Problems (Last Reviewed 12/03/17 @ 10:29 by Aj Gray MD) CAP (community acquired pneumonia) (Acute) COPD with acute exacerbation (Acute) Osteoporosis (Suspected) Hypomagnesemia (Acute) This is a 77 years old female patient admitted because of worsening shortness of breath, found to have right upper lobe community acquired pneumonia and acute COPD exacerbation. #1 right upper lobe community-acquired pneumonia: She is on day 3 of IV Rocephin and Zithromax. She has been afebrile, no leukocytosis. She is still short of breath at rest although she has been on 3 L of oxygen which is her baseline at home. Nasal swab for influenza a and B were negative. Respiratory panel for viruses and sputum cultures are pending. Plan: Continue same treatment. #2 acute COPD exacerbation: She is on IV steroids, IV antibiotics and bronchodilators. Although she has been on 3 L which is her baseline at home, she remained short of breath and dyspneic at rest and she mentioned that she is not back to baseline yet. Plan: Increase DuoNeb to every 4 hours, start Mucomyst twice daily, continue other treatments. #3 hypomagnesemia: Magnesium is replaced and corrected. Today's magnesium 1.7, potassium is normal. #4 COPD/chronic respiratory failure: She has severe COPD/emphysema and she has been on home oxygen at 3 L at home. Plan as above. #5 paroxysmal A. fib: Rate is controlled, blood pressure stable. Continue metoprolol for rate control and Xarelto for anti-coagulation. #6 hypothyroidism: Continue levothyroxine. #7 chronic anemia: Normocytic anemia, baseline hemoglobin around 10-11 g/dL. Today's hemoglobin is 11.2 g/dL, stable. She is receiving IV iron sucrose injections. #8 chronic back pain/vertebral compression fractures: She is on Tylenol, pain is controlled. #9 anxiety/depression: Continue trazodone and Zoloft as well as BuSpar. #10 DVT prophylaxis: Continue Xarelto. This note was generated with [employer] dictation software. It may contain incorrect words, spelling, and punctuation that were not noted in checking the note before signing. Code Visit Inpatient E&M: 21611 Subs Hosp L2
--- NOTE | 2018-01-29 08:59 | PN_ITS ---
Patient Problems: Active and Suspected Problems (Last Reviewed 12/03/17 @ 10:29 by Aj Gray MD ) CAP (community acquired pneumonia) (Acute) COPD with acute exacerbation (Acute) Osteoporosis (Suspected) Hypomagnesemia (Acute) Subjective: Chief complaint: Follow-up after admission for right upper lobe community- acquired pneumonia and COPD exacerbation. Patient seen and examined. No acute events overnight. This morning, she complained of increasing shortness of breath at rest. She denied cough or sputum production. Although she has been on 3 L of oxygen which is same at home , she mentioned that she is more short of breath than usual, getting more short of breath on minimal exertion. Denied chest pain or palpitations. Vital signs are stable, afebrile, pulse ox is 95% on 3 L. - Physical Exam General: Alert, Oriented x3, Cooperative, - - Moderately short of breath. HEENT: Atraumatic, PERRLA, EOMI Oral: Moist Mucosa, No Gingival or Mucosal Lesions/ Ulcerations Neck: Supple, No JVD, Negative Carotid Bruits, Trachea Midline, Thyroid Normal Size and Texture Lungs: Diminished, Rales, Rhonchi, Short of Breath, Tachypneic, - - Decreased breath sounds bilateral, more at the bases, faint crackles at the bases. Cardiovascular: Regular rate, Regular Rhythm, Normal S1, Normal S2, PMI Normal Abdomen: Bowel Sounds Present, Soft, Non Tender, Non-Distended, No Hepato- splenomegaly Extremities: No clubbing, No cyanosis, No edema Skin: No rashes, No breakdown Lymphatic: No Cervical, Supraclavicular, or Inguinal Adenopathy Neurological: Cranial nerves II-XII grossly intact, Motor Exam 5/5 strength throughout Psych/Mental Status: Normal Affect, Appropriate, Alert and oriented to time, place, person, mood and affect Vital Signs Temp Pulse Resp BP Pulse Ox 98.2 F 72 20 H 138/79 H 92 01/29/18 07:57 01/29/18 07:57 01/29/18 07:57 01/29/18 07:57 01/29/18 07:57 Oxygen Flow Rate (L/min) 3 Oxygen Delivery Method Nasal Cannula Weight: 134 lb 14.766 oz Body Mass Index (BMI) 21.1 Intake and Output for Last 24 Hours 01/27/18 01/28/18 01/29/18 23:59 23:59 23:59 Intake Total 924 / 924 1911 1400 / 1400 Output Total 700 / 700 Balance 224 / 224 1911 1400 / 1400 Microbiology Past 72 Hours 01/26/18 17:20 Gram Stain - Final Sputum, Expectorated/Coughed 01/26/18 15:10 Influenza Types A,B Direct FA (EDUIN) - Final Mucosa - Nasopharyngeal Laboratory Tests Past 24 Hrs 01/29/18 01/29/18 06:50 06:50 WBC 4.5 RBC 3.94 L Hgb 11.2 L Hct 37.3 MCV 94.7 MCH 28.4 MCHC 30.0 L RDW 15.4 H RDW Differential 53.3 H Plt Count 279 MPV 9.0 Sodium 142 Potassium 4.5 Chloride 102 Carbon Dioxide 35.0 H Anion Gap 5 BUN 12 Creatinine 0.40 L Estim Creat Clear Calc 46.24 Est GFR (MDRD) Af Amer 198 Est GFR (MDRD) Non-Af 163 BUN/Creatinine Ratio 29.8 H Glucose 113 H Calcium 10.0 Phosphorus 3.2 Magnesium 1.7 Total Bilirubin 0.50 AST 24 ALT 41 Alkaline Phosphatase 117 Total Protein 6.2 L Albumin 2.9 L Globulin 3.3 Albumin/Globulin Ratio 0.9 Medical Necessity - Tobacco Use Smoking Status: Former smoker Tobacco Use: Non-smoker Assessment/Plan Active and Suspected Problems (Last Reviewed 12/03/17 @ 10:29 by Aj Gray MD ) CAP (community acquired pneumonia) (Acute) COPD with acute exacerbation (Acute) Osteoporosis (Suspected) Hypomagnesemia (Acute) This is a 77 years old female patient admitted because of worsening shortness of breath, found to have right upper lobe community acquired pneumonia and acute COPD exacerbation. #1 right upper lobe community-acquired pneumonia: She is on day 3 of IV Rocephin and Zithromax. She has been afebrile, no leukocytosis. She is still short of breath at rest although she has been on 3 L of oxygen which is her baseline at home. Nasal swab for influenza a and B were negative. Respiratory panel for viruses and sputum cultures are pending. Plan: Continue same treatment. #2 acute COPD exacerbation: She is on IV steroids, IV antibiotics and bronchodilators. Although she has been on 3 L which is her baseline at home, she remained short of breath and dyspneic at rest and she mentioned that she is not back to baseline yet. Plan: Increase DuoNeb to every 4 hours, start Mucomyst twice daily, continue other treatments. #3 hypomagnesemia: Magnesium is replaced and corrected. Today's magnesium 1.7, potassium is normal. #4 COPD/chronic respiratory failure: She has severe COPD/emphysema and she has been on home oxygen at 3 L at home. Plan as above. #5 paroxysmal A. fib: Rate is controlled, blood pressure stable. Continue metoprolol for rate control and Xarelto for anti-coagulation. #6 hypothyroidism: Continue levothyroxine. #7 chronic anemia: Normocytic anemia, baseline hemoglobin around 10-11 g/dL. Today's hemoglobin is 11.2 g/dL, stable. She is receiving IV iron sucrose injections. #8 chronic back pain/vertebral compression fractures: She is on Tylenol, pain is controlled. #9 anxiety/depression: Continue trazodone and Zoloft as well as BuSpar. #10 DVT prophylaxis: Continue Xarelto. This note was generated with [employer] dictation software. It may contain incorrect words, spelling, and punctuation that were not noted in checking the note before signing. Code Visit Inpatient E&M: 37100 Subs Hosp L2
[2018-01-29] MEDS: Ceftriaxone 1 GM/50 ML BAG IV (09:52)
[2018-01-29] MEDS: Sertraline 50 MG Tablet PO (10:46)
[2018-01-29] MEDS: guaiFENesin 1,200 MG Tablet 1200 MG PO ×2 (10:46→22:24)
[2018-01-29] MEDS: Magnesium Oxide 400 MG Tablet PO (10:46)
[2018-01-29] MEDS: Famotidine 20 MG Tablet PO (10:46)
[2018-01-29] MEDS: Metoprolol Tartrate 25 MG Tablet PO ×2 (10:47→22:23)
--- NOTE | 2018-01-29 10:49 | CASEMGMT ---
SW spoke w/physician this morning who states pt may need penitentiary placement. SW spoke w/pt in regard to this. Pt initially asked about adding a provision to POA papers completed a couple of days ago. SW assisted w/this. SW then spoke w/pt about discharge plan. Pt is uncertain if she wants to go to SNF. When asked if her will be able to assist at home, pt states she does not know. SW explained about the penitentiary option for short term rehab, gave pt a list of nursing homes that take [employer]--reviewed the list with her. Pt is going to think about this option and also speak w/her about it. SW explained if she is feeling well enough tomorrow and the doctor thinks she can go home tomorrow, pt can be discharged home and home health care is set up already. SW explained to pt that if she does not feel she can manage at home and needs penitentiary, she needs to tell the doctor tomorrow, he will then keep her until Wednesday so we can work on penitentiary placement. SW explained if she is still here Wednesday, SW on Wednesday will follow up w/her. Pt states understanding. Plan: undetermined. If pt is doing well enough to be discharged tomorrow and can manage at home, she can be discharged home with home health. Otherwise, if pt is still here Wednesday, SW will follow up w/pt on Wednesday regarding penitentiary placement. MARVIN Bolanos, ANGULAR JS DEVELOPER
[2018-01-29] MEDS: Montelukast 10 MG Tablet PO (17:04)
[2018-01-29] MEDS: Rivaroxaban 20 MG Tablet PO (17:04)
[2018-01-29] MEDS: Acetylcysteine 800 MG/4 ML VIAL.NEB. INHALATION (18:48)
[2018-01-29] MEDS: Acetaminophen 325 MG Tablet 650 MG PO (23:34)
[2018-01-29] MEDS: traZODone 50 MG Tablet 100 MG PO (23:35)
[2018-01-30] VITALS (16 sets, daily range): BP systolic 123–158; BP diastolic 62–75; PULSE 59–133; RESP 18–24; TEMP 36.8–37.5; O2SAT 91–96
[2018-01-30] MEDS: Ipratropium/Albuterol Sulfate 3 ML AMPUL.NEB INHALATION ×6 (02:58→23:34)
[2018-01-30] MEDS: busPIRone 5 MG Tablet PO ×3 (05:44→22:16)
[2018-01-30] MEDS: Levothyroxine 50 MCG Tablet PO (05:44)
[2018-01-30] MEDS: Acetylcysteine 800 MG/4 ML VIAL.NEB. INHALATION ×2 (07:33→19:46)
[2018-01-30] MEDS: Calcium Carb/Vitamin D 1 TABLET Tablet PO ×3 (08:58→17:30)
[2018-01-30] MEDS: Iron Polysaccharide Complex 150 MG CAPSULE PO (08:58)
[2018-01-30] MEDS: 0.9% NaCl Peripheral Flush Adult/Peds IV ×3 (09:41→22:15)
[2018-01-30] MEDS: Ceftriaxone 1 GM/50 ML BAG IV (09:42)
[2018-01-30] MEDS: Bumetanide 1 MG/4 ML Vial IV (10:26)
[2018-01-30] MEDS: guaiFENesin 1,200 MG Tablet 1200 MG PO ×2 (10:29→22:15)
[2018-01-30] MEDS: Famotidine 20 MG Tablet PO (10:29)
[2018-01-30] MEDS: Sertraline 50 MG Tablet PO (10:29)
[2018-01-30] MEDS: Magnesium Oxide 400 MG Tablet PO (10:29)
[2018-01-30] MEDS: Metoprolol Tartrate 25 MG Tablet PO ×2 (10:30→22:15)
--- NOTE | 2018-01-30 10:54 | PCM.PROGNOTE ---
<Amirah Santillan - Last Filed: 01/30/18 11:06> Patient Problems: Active and Suspected Problems (Last Reviewed 12/03/17 @ 10:29 by Aj Gray MD) CAP (community acquired pneumonia) (Acute) COPD with acute exacerbation (Acute) Osteoporosis (Suspected) Hypomagnesemia (Acute) Subjective: Patient seen and examined. Complains of significant shortness of breath with minimal ambulation. Continues to have nonproductive cough. Intermittent fever, chills. Denies chest pain. Denies other current complaints. - Physical Exam General: Alert, Oriented x3, Cooperative HEENT: Atraumatic, PERRLA, EOMI, Normocephalic Neck: Supple, No JVD, Negative Carotid Bruits Lungs: Diminished, Rales, Rhonchi, Wheezes Cardiovascular: - - Atrial fibrillation, rate controlled. Abdomen: Bowel Sounds Present, Soft, Non Tender, Non-Distended Extremities: No clubbing, No cyanosis, No edema, Capillary Refill Less than 3 Seconds Skin: No rashes, No breakdown Musculoskeletal: No Tenderness to Palpation of Joints or Extremities Neurological: Cranial nerves II-XII grossly intact, Neuro grossly intact Psych/Mental Status: Normal Affect, Appropriate Vital Signs Temp Pulse Resp BP Pulse Ox 99.5 F H 107 H 20 H 134/73 H 95 01/30/18 10:30 01/30/18 10:30 01/30/18 10:30 01/30/18 10:30 01/30/18 10:30 Oxygen Flow Rate (L/min) 3 Oxygen Delivery Method Nasal Cannula Weight: 61.2 kg Body Mass Index (BMI) 21.1 Intake and Output for Last 24 Hours 01/28/18 01/29/18 01/30/18 23:59 23:59 23:59 Intake Total 1911 2796 / 2796 337 / 337 Balance 1911 2796 / 2796 337 / 337 Microbiology Past 72 Hours 01/26/18 17:20 Gram Stain - Final Sputum, Expectorated/Coughed Respiratory Culture - Final Presumptive C albicans Mixed Gregory Medical Necessity - Tobacco Use Smoking Status: Former smoker Tobacco Use: Non-smoker Assessment/Plan Active and Suspected Problems (Last Reviewed 12/03/17 @ 10:29 by Aj Gray MD) CAP (community acquired pneumonia) (Acute) COPD with acute exacerbation (Acute) Osteoporosis (Suspected) Hypomagnesemia (Acute) Patient is a 77-year-old female admitted [phone] due to shortness of breath. She has a past medical history of COPD, chronic hypoxic respiratory failure, hypothyroidism, anxiety, depression, suspected osteoporosis, multiple thoracic vertebral compression fractures, history of malnutrition, paroxysmal atrial fibrillation, restless leg syndrome, allergic rhinitis. 1. Right upper lobe community-acquired pneumonia-chest x-ray on admission showed right upper lobe airspace disease possibly representing pneumonia. Patient continues to have mild intermittent fever. No leukocytosis. IV azithromycin course completed. Continue IV Rocephin. Sputum culture showing mixed gregory. Continue Mucinex. Continue supplemental oxygen to maintain O2 at or above 90%. Albuterol DuoNeb aerosols. Bumex ?1 given for possible fluid overload. 2. Acute COPD exacerbation with chronic hypoxic respiratory failure-continue IV Solu-Medrol. Albuterol and DuoNeb aerosols. Patient follows with Dr. King. States she is currently undergoing evaluation for CPAP device. Patient chronically wears 3 L nasal cannula baseline. Oxygen stable on baseline O2. Negative for influenza. Respiratory panel pending. 3. Hypomagnesia-resolved. 4. Paroxysmal atrial fibrillation-rate controlled. Continue home metoprolol, Xarelto regimen. 5. Hypothyroidism-continue home Synthroid regimen. 6. Chronic iron deficiency anemia-at baseline, monitor CBC. 7. Anxiety, depression-continue home regimen of BuSpar, Zoloft. 8. Multiple thoracic vertebral compression fractures with suspected osteoporosis-continue Tylenol as needed for pain. Calcium/vitamin D supplementation. DVT prophylaxis-continue Xarelto. This patient was seen by MAHAD Aranda under the supervision of Dr. Webster. <Catrachito Webster E - Last Filed: 01/30/18 14:51> - Physical Exam Vital Signs Temp Pulse Resp BP Pulse Ox 99.5 F H 84 18 134/73 H 95 01/30/18 10:30 01/30/18 10:59 01/30/18 10:59 01/30/18 10:30 01/30/18 10:30 Oxygen Flow Rate (L/min) 3 Oxygen Delivery Method Nasal Cannula Weight: 134 lb 14.766 oz Body Mass Index (BMI) 21.1 Intake and Output for Last 24 Hours 0501/29/18 01/30/18 23:59 23:59 23:59 Intake Total 1911 2796 / 2796 937 / 937 Balance 1911 2796 / 2796 937 / 937 Microbiology Past 72 Hours 01/26/18 17:20 Gram Stain - Final Sputum, Expectorated/Coughed Respiratory Culture - Final Presumptive C albicans Mixed Gregory Assessment/Plan Hospitalist note: I am seeing this patient in conjunction with Amirah Santillan. I independently seen and examined the patient. Progress note above reviewed and I agree with above treatment plan. Patient seen and examined today. She reported almost no improvement compared to yesterday, still getting short of breath very easily up on ambulation. At rest, she remains on 3 L of oxygen which is her baseline at home. She is afebrile, has been tachycardic, blood pressure stable, pulse ox is maintained on 3 L. Physical examination: General: Alert, Oriented x3, Cooperative, - - Moderately short of breath. HEENT: Atraumatic, PERRLA, EOMI Oral: Moist Mucosa, No Gingival or Mucosal Lesions/ Ulcerations Neck: Supple, No JVD, Negative Carotid Bruits, Trachea Midline, Thyroid Normal Size and Texture Lungs: Diminished, Rales, Rhonchi, Short of Breath, Tachypneic, - - Decreased breath sounds bilateral, more at the bases, faint crackles at the bases. Cardiovascular: Regular rate, Regular Rhythm, Normal S1, Normal S2, PMI Normal Abdomen: Bowel Sounds Present, Soft, Non Tender, Non-Distended, No Hepato-splenomegaly Extremities: No clubbing, No cyanosis, No edema Skin: No rashes, No breakdown Lymphatic: No Cervical, Supraclavicular, or Inguinal Adenopathy Neurological: Cranial nerves II-XII grossly intact, Motor Exam 5/5 strength throughout Psych/Mental Status: Normal Affect, Appropriate, Alert and oriented to time, place, person, mood and affect. Assessment and plan: This is a 77 years old female patient admitted because of worsening shortness of breath, found to have right upper lobe community acquired pneumonia and acute COPD exacerbation. #1 right upper lobe community-acquired pneumonia: She is on day 3 of IV Rocephin, completed 3 days of Zithromax. She has been afebrile, no leukocytosis. She is still short of breath at rest although she has been on 3 L of oxygen which is her baseline at home. Nasal swab for influenza a and B were negative. Respiratory panel for viruses and sputum cultures are pending. Plan: Continue same treatment. #2 acute COPD exacerbation: Remained on IV steroids, IV antibiotics and bronchodilators. Reported no significant improvement of her symptoms. Although she has been on 3 L which is her baseline at home, she remained short of breath and dyspneic at rest and she mentioned that she is not back to baseline yet. 1 dose of Bumex was given. #3 hypomagnesemia: Magnesium is replaced and corrected. #4 COPD/chronic respiratory failure: She has severe COPD/emphysema and she has been on home oxygen at 3 L at home. Plan as above. #5 paroxysmal A. fib: Rate has been around 100, but goes up to 120s sometimes., blood pressure stable. Continue metoprolol for rate control and Xarelto for anti-coagulation. #6 hypothyroidism: Continue levothyroxine. #7 chronic anemia: Normocytic anemia, baseline hemoglobin around 10-11 g/dL. yesterday's hemoglobin is 11.2 g/dL, stable. #8 chronic back pain/vertebral compression fractures: She is on Tylenol, pain is controlled. #9 anxiety/depression: Continue trazodone and Zoloft as well as BuSpar. #10 DVT prophylaxis: Continue Xarelto. This note was generated with [employer] software. It may contain incorrect words, spelling, and punctuation that were not noted in checking the note before signing. Code Visit Inpatient E&M: 01166 Subs Hosp L2
--- NOTE | 2018-01-30 11:06 | PN_ITS ---
<Amirah Santillan - Last Filed: 01/30/18 11:06> Patient Problems: Active and Suspected Problems (Last Reviewed 12/03/17 @ 10:29 by Aj Gray MD ) CAP (community acquired pneumonia) (Acute) COPD with acute exacerbation (Acute) Osteoporosis (Suspected) Hypomagnesemia (Acute) Subjective: Patient seen and examined. Complains of significant shortness of breath with minimal ambulation. Continues to have nonproductive cough. Intermittent fever , chills. Denies chest pain. Denies other current complaints. - Physical Exam General: Alert, Oriented x3, Cooperative HEENT: Atraumatic, PERRLA, EOMI, Normocephalic Neck: Supple, No JVD, Negative Carotid Bruits Lungs: Diminished, Rales, Rhonchi, Wheezes Cardiovascular: - - Atrial fibrillation, rate controlled. Abdomen: Bowel Sounds Present, Soft, Non Tender, Non-Distended Extremities: No clubbing, No cyanosis, No edema, Capillary Refill Less than 3 Seconds Skin: No rashes, No breakdown Musculoskeletal: No Tenderness to Palpation of Joints or Extremities Neurological: Cranial nerves II-XII grossly intact, Neuro grossly intact Psych/Mental Status: Normal Affect, Appropriate Vital Signs Temp Pulse Resp BP Pulse Ox 99.5 F H 107 H 20 H 134/73 H 95 01/30/18 10:30 01/30/18 10:30 01/30/18 10:30 01/30/18 10:30 01/30/18 10:30 Oxygen Flow Rate (L/min) 3 Oxygen Delivery Method Nasal Cannula Weight: 61.2 kg Body Mass Index (BMI) 21.1 Intake and Output for Last 24 Hours 01/28/18 01/29/18 01/30/18 23:59 23:59 23:59 Intake Total 1911 2796 / 2796 337 / 337 Balance 1911 2796 / 2796 337 / 337 Microbiology Past 72 Hours 01/26/18 17:20 Gram Stain - Final Sputum, Expectorated/Coughed Respiratory Culture - Final Presumptive C albicans Mixed Gregory Medical Necessity - Tobacco Use Smoking Status: Former smoker Tobacco Use: Non-smoker Assessment/Plan Active and Suspected Problems (Last Reviewed 12/03/17 @ 10:29 by Aj Gray MD ) CAP (community acquired pneumonia) (Acute) COPD with acute exacerbation (Acute) Osteoporosis (Suspected) Hypomagnesemia (Acute) Patient is a 77-year-old female admitted [phone] due to shortness of breath. She has a past medical history of COPD, chronic hypoxic respiratory failure, hypothyroidism, anxiety, depression, suspected osteoporosis, multiple thoracic vertebral compression fractures, history of malnutrition, paroxysmal atrial fibrillation, restless leg syndrome, allergic rhinitis. 1. Right upper lobe community-acquired pneumonia-chest x-ray on admission showed right upper lobe airspace disease possibly representing pneumonia. Patient continues to have mild intermittent fever. No leukocytosis. IV azithromycin course completed. Continue IV Rocephin. Sputum culture showing mixed gregory. Continue Mucinex. Continue supplemental oxygen to maintain O2 at or above 90%. Albuterol DuoNeb aerosols. Bumex ?1 given for possible fluid overload. 2. Acute COPD exacerbation with chronic hypoxic respiratory failure-continue IV Solu-Medrol. Albuterol and DuoNeb aerosols. Patient follows with Dr. King. States she is currently undergoing evaluation for CPAP device. Patient chronically wears 3 L nasal cannula baseline. Oxygen stable on baseline O2. Negative for influenza. Respiratory panel pending. 3. Hypomagnesia-resolved. 4. Paroxysmal atrial fibrillation-rate controlled. Continue home metoprolol, Xarelto regimen. 5. Hypothyroidism-continue home Synthroid regimen. 6. Chronic iron deficiency anemia-at baseline, monitor CBC. 7. Anxiety, depression-continue home regimen of BuSpar, Zoloft. 8. Multiple thoracic vertebral compression fractures with suspected osteoporosis-continue Tylenol as needed for pain. Calcium/vitamin D supplementation. DVT prophylaxis-continue Xarelto. This patient was seen by MAHAD Aranda under the supervision of Dr. Webster. <Catrachito Webster E - Last Filed: 01/30/18 14:51> - Physical Exam Vital Signs Temp Pulse Resp BP Pulse Ox 99.5 F H 84 18 134/73 H 95 01/30/18 10:30 01/30/18 10:59 01/30/18 10:59 01/30/18 10:30 01/30/18 10:30 Oxygen Flow Rate (L/min) 3 Oxygen Delivery Method Nasal Cannula Weight: 134 lb 14.766 oz Body Mass Index (BMI) 21.1 Intake and Output for Last 24 Hours 0501/29/18 01/30/18 23:59 23:59 23:59 Intake Total 1911 2796 / 2796 937 / 937 Balance 1911 2796 / 2796 937 / 937 Microbiology Past 72 Hours 01/26/18 17:20 Gram Stain - Final Sputum, Expectorated/Coughed Respiratory Culture - Final Presumptive C albicans Mixed Gregory Assessment/Plan Hospitalist note: I am seeing this patient in conjunction with Amirah Santillan. I independently seen and examined the patient. Progress note above reviewed and I agree with above treatment plan. Patient seen and examined today. She reported almost no improvement compared to yesterday, still getting short of breath very easily up on ambulation. At rest, she remains on 3 L of oxygen which is her baseline at home. She is afebrile, has been tachycardic, blood pressure stable, pulse ox is maintained on 3 L. Physical examination: General: Alert, Oriented x3, Cooperative, - - Moderately short of breath. HEENT: Atraumatic, PERRLA, EOMI Oral: Moist Mucosa, No Gingival or Mucosal Lesions/ Ulcerations Neck: Supple, No JVD, Negative Carotid Bruits, Trachea Midline, Thyroid Normal Size and Texture Lungs: Diminished, Rales, Rhonchi, Short of Breath, Tachypneic, - - Decreased breath sounds bilateral, more at the bases, faint crackles at the bases. Cardiovascular: Regular rate, Regular Rhythm, Normal S1, Normal S2, PMI Normal Abdomen: Bowel Sounds Present, Soft, Non Tender, Non-Distended, No Hepato- splenomegaly Extremities: No clubbing, No cyanosis, No edema Skin: No rashes, No breakdown Lymphatic: No Cervical, Supraclavicular, or Inguinal Adenopathy Neurological: Cranial nerves II-XII grossly intact, Motor Exam 5/5 strength throughout Psych/Mental Status: Normal Affect, Appropriate, Alert and oriented to time, place, person, mood and affect. Assessment and plan: This is a 77 years old female patient admitted because of worsening shortness of breath, found to have right upper lobe community acquired pneumonia and acute COPD exacerbation. #1 right upper lobe community-acquired pneumonia: She is on day 3 of IV Rocephin , completed 3 days of Zithromax. She has been afebrile, no leukocytosis. She is still short of breath at rest although she has been on 3 L of oxygen which is her baseline at home. Nasal swab for influenza a and B were negative. Respiratory panel for viruses and sputum cultures are pending. Plan: Continue same treatment. #2 acute COPD exacerbation: Remained on IV steroids, IV antibiotics and bronchodilators. Reported no significant improvement of her symptoms. Although she has been on 3 L which is her baseline at home, she remained short of breath and dyspneic at rest and she mentioned that she is not back to baseline yet. 1 dose of Bumex was given. #3 hypomagnesemia: Magnesium is replaced and corrected. #4 COPD/chronic respiratory failure: She has severe COPD/emphysema and she has been on home oxygen at 3 L at home. Plan as above. #5 paroxysmal A. fib: Rate has been around 100, but goes up to 120s sometimes., blood pressure stable. Continue metoprolol for rate control and Xarelto for anti-coagulation. #6 hypothyroidism: Continue levothyroxine. #7 chronic anemia: Normocytic anemia, baseline hemoglobin around 10-11 g/dL. yesterday's hemoglobin is 11.2 g/dL, stable. #8 chronic back pain/vertebral compression fractures: She is on Tylenol, pain is controlled. #9 anxiety/depression: Continue trazodone and Zoloft as well as BuSpar. #10 DVT prophylaxis: Continue Xarelto. This note was generated with [employer] software. It may contain incorrect words, spelling, and punctuation that were not noted in checking the note before signing. Code Visit Inpatient E&M: 65646 Subs Hosp L2
[2018-01-30] MEDS: Montelukast 10 MG Tablet PO (17:30)
[2018-01-30] MEDS: Rivaroxaban 20 MG Tablet PO (17:30)
[2018-01-30] MEDS: traZODone 50 MG Tablet 100 MG PO (22:17)
[2018-01-30] MEDS: Acetaminophen 325 MG Tablet 650 MG PO (22:19)
[2018-01-31] VITALS (12 sets, daily range): BP systolic 136–151; BP diastolic 64–76; PULSE 69–98; RESP 16–22; TEMP 36.9–37.2; O2SAT 92–99
[2018-01-31] MEDS: 0.9% NaCl Peripheral Flush Adult/Peds IV (05:38)
[2018-01-31] MEDS: Levothyroxine 50 MCG Tablet PO (05:38)
[2018-01-31] MEDS: busPIRone 5 MG Tablet PO ×3 (05:38→21:44)
[2018-01-31] MEDS: Acetylcysteine 800 MG/4 ML VIAL.NEB. INHALATION (06:30)
[2018-01-31] MEDS: Ipratropium/Albuterol Sulfate 3 ML AMPUL.NEB INHALATION ×4 (06:30→21:43)
[2018-01-31] MEDS: Metoprolol Tartrate 25 MG Tablet PO ×2 (08:35→21:45)
[2018-01-31] MEDS: Calcium Carb/Vitamin D 1 TABLET Tablet PO ×3 (08:35→17:23)
[2018-01-31] MEDS: Magnesium Oxide 400 MG Tablet PO (08:36)
[2018-01-31] MEDS: guaiFENesin 1,200 MG Tablet 1200 MG PO ×2 (08:36→21:44)
[2018-01-31] MEDS: Sertraline 50 MG Tablet PO (08:37)
[2018-01-31] MEDS: Iron Polysaccharide Complex 150 MG CAPSULE PO (08:37)
[2018-01-31] MEDS: Polyethylene Glycol 3350 17 GM PACKET PO (08:37)
--- NOTE | 2018-01-31 09:46 | PCM.PROGNOTE ---
<Amirah Santillan - Last Filed: 01/31/18 10:11> Patient Problems: Active and Suspected Problems (Last Reviewed 12/03/17 @ 10:29 by Aj Gray MD) CAP (community acquired pneumonia) (Acute) COPD with acute exacerbation (Acute) Osteoporosis (Suspected) Hypomagnesemia (Acute) Subjective: Patient seen and examined. States she is feeling somewhat improved but continues to complain of getting winded with any ambulation and generalized weakness. Interested in transitional care unit at discharge. Wishes to speak with her daughter and case management. Patient denies other current complaints. - Physical Exam General: Alert, Oriented x3, Cooperative, No apparent distress HEENT: Atraumatic, PERRLA, EOMI, Normocephalic Neck: Supple, No JVD, Negative Carotid Bruits Lungs: Clear to auscultation, Diminished Cardiovascular: - - Atrial fibrillation, rate controlled. Abdomen: Bowel Sounds Present, Soft, Non Tender, Non-Distended Extremities: No clubbing, No cyanosis, No edema, Capillary Refill Less than 3 Seconds Skin: No rashes, No breakdown Musculoskeletal: No Tenderness to Palpation of Joints or Extremities Neurological: Cranial nerves II-XII grossly intact, Neuro grossly intact Psych/Mental Status: Normal Affect, Appropriate Vital Signs Temp Pulse Resp BP Pulse Ox 98.5 F 80 20 H 136/72 H 94 01/31/18 05:30 01/31/18 08:35 01/31/18 06:30 01/31/18 05:30 01/31/18 06:30 Oxygen Flow Rate (L/min) 3 Oxygen Delivery Method Nasal Cannula Weight: 61.2 kg Body Mass Index (BMI) 21.1 Intake and Output for Last 24 Hours 01/29/18 01/30/18 01/31/18 23:59 23:59 23:59 Intake Total 2796 / 2796 1457 / 1457 700 / 700 Balance 2796 / 2796 1457 / 1457 700 / 700 Microbiology Past 72 Hours 01/26/18 17:20 Gram Stain - Final Sputum, Expectorated/Coughed Respiratory Culture - Final Presumptive C albicans Mixed Gregory Medical Necessity - Tobacco Use Smoking Status: Former smoker Tobacco Use: Non-smoker Assessment/Plan Active and Suspected Problems (Last Reviewed 12/03/17 @ 10:29 by Aj Gray MD) CAP (community acquired pneumonia) (Acute) COPD with acute exacerbation (Acute) Osteoporosis (Suspected) Hypomagnesemia (Acute) Patient is a 77-year-old female admitted 01/26/18 due to shortness of breath. She has a past medical history of COPD, chronic hypoxic respiratory failure, hypothyroidism, anxiety, depression, suspected osteoporosis, multiple thoracic vertebral compression fractures, history of malnutrition, paroxysmal atrial fibrillation, restless leg syndrome, allergic rhinitis. 1. Right upper lobe community-acquired pneumonia-chest x-ray on admission showed right upper lobe airspace disease possibly representing pneumonia. Fever improved. No leukocytosis. IV azithromycin course completed. Stop IV Rocephin and begin oral Levaquin. Sputum culture showing mixed gregory. Continue Mucinex. Continue supplemental oxygen to maintain O2 at or above 90%. Albuterol DuoNeb aerosols. Bumex ?1 given for possible fluid overload. Patient's daughter asked for pulmonary consult. Will contact Dr. King, patients grain merchandiser to see if he has any further input. 2. Acute COPD exacerbation with chronic hypoxic respiratory failure-Transition to prednisone. Albuterol and DuoNeb aerosols. Patient follows with Dr. King. States she is currently undergoing evaluation for CPAP device. Patient chronically wears 3 L nasal cannula baseline. Oxygen stable on baseline O2. Negative for influenza. Respiratory panel pending. 3. Hypomagnesia-resolved. 4. Paroxysmal atrial fibrillation-rate controlled. Continue home metoprolol, Xarelto regimen. 5. Hypothyroidism-continue home Synthroid regimen. 6. Chronic iron deficiency anemia-at baseline, monitor CBC. 7. Anxiety, depression-continue home regimen of BuSpar, Zoloft. 8. Multiple thoracic vertebral compression fractures with suspected osteoporosis-continue Tylenol as needed for pain. Calcium/vitamin D supplementation. DVT prophylaxis-continue Xarelto. Discharge planning: TCU pending pre-cert, case management involved. This patient was seen by MAHAD Aranda under the supervision of Dr. Webster. <Catrachito Webster - Last Filed: 01/31/18 13:23> - Physical Exam Vital Signs Temp Pulse Resp BP Pulse Ox 98.5 F 82 16 136/71 H 94 01/31/18 10:23 01/31/18 10:43 01/31/18 10:43 01/31/18 10:23 01/31/18 10:23 Oxygen Flow Rate (L/min) 3 Oxygen Delivery Method Nasal Cannula Weight: 134 lb 14.766 oz Body Mass Index (BMI) 21.1 Intake and Output for Last 24 Hours 01/29/18 01/30/18 01/31/18 23:59 23:59 23:59 Intake Total 2796 / 2796 1457 / 1457 700 / 700 Balance 2796 / 2796 1457 / 1457 700 / 700 Microbiology Past 72 Hours 01/29/18 01:05 Respiratory Panel (PCR) - Final Mucosa - Nasopharyngeal Human [place] 01/26/18 17:20 Gram Stain - Final Sputum, Expectorated/Coughed Respiratory Culture - Final Presumptive C albicans Mixed Gregory Assessment/Plan Hospitalist note: I am seeing this patient in conjunction with Amirah Santillan. I independently seen and examined the patient. Progress note above reviewed and I agree with above treatment plan. Patient seen and examined today. Today, she reported minimal improvement compared to yesterday and she does look a little bit better. She remains on 3 L of oxygen. She complains of back spasm upon standing. Her other vital signs are stable. Physical examination: General: Alert, Oriented x3, Cooperative, - - Moderately short of breath. HEENT: Atraumatic, PERRLA, EOMI Oral: Moist Mucosa, No Gingival or Mucosal Lesions/ Ulcerations Neck: Supple, No JVD, Negative Carotid Bruits, Trachea Midline, Thyroid Normal Size and Texture Lungs: Diminished, Rales, Rhonchi, Short of Breath, Tachypneic, - - Decreased breath sounds bilateral, more at the bases. Cardiovascular: Regular rate, Regular Rhythm, Normal S1, Normal S2, PMI Normal Abdomen: Bowel Sounds Present, Soft, Non Tender, Non-Distended, No Hepato-splenomegaly Extremities: No clubbing, No cyanosis, No edema Skin: No rashes, No breakdown Lymphatic: No Cervical, Supraclavicular, or Inguinal Adenopathy Neurological: Cranial nerves II-XII grossly intact, Motor Exam 5/5 strength throughout Psych/Mental Status: Normal Affect, Appropriate, Alert and oriented to time, place, person, mood and affect. Assessment and plan: This is a 77 years old female patient admitted because of worsening shortness of breath, found to have right upper lobe community acquired pneumonia and acute COPD exacerbation. #1 right upper lobe community-acquired pneumonia: She is on day 4 of IV Rocephin, completed 3 days of Zithromax. She has been afebrile, no leukocytosis. She remains on 3 L of oxygen, reported minimal improvement compared to yesterday. Nasal swab for influenza a and B were negative. Respiratory panel for viruses and sputum cultures are pending. Plan: Pulmonology consult, continue same treatment. #2 acute COPD exacerbation: Remained on IV steroids, IV antibiotics and bronchodilators. Reported no significant improvement of her symptoms. Although she has been on 3 L which is her baseline at home. 1 dose of Bumex was given yesterday. Plan to DC IV steroids, start oral prednisone. #3 hypomagnesemia: Magnesium is replaced and corrected. #4 COPD/chronic respiratory failure: She has severe COPD/emphysema and she has been on home oxygen at 3 L at home. Plan as above. #5 paroxysmal A. fib: Rate has been around 100, but goes up to 120s sometimes., blood pressure stable. Continue metoprolol for rate control and Xarelto for anti-coagulation. #6 hypothyroidism: Continue levothyroxine. #7 chronic anemia: Normocytic anemia, baseline hemoglobin around 10-11 g/dL. most recent hemoglobin is 11.2 g/dL, stable. #8 chronic back pain/vertebral compression fractures: She is on Tylenol, pain is controlled. #9 anxiety/depression: Continue trazodone and Zoloft as well as BuSpar. #10 DVT prophylaxis: Continue Xarelto. This note was generated with [employer] dictation software. It may contain incorrect words, spelling, and punctuation that were not noted in checking the note before signing. Code Visit Inpatient E&M: 18921 Subs Hosp L2
[2018-01-31] MEDS: Famotidine 20 MG Tablet PO (10:17)
--- NOTE | 2018-01-31 12:30 | CASEMGMT ---
Social Work Note Per Brittany DUBOIS-S pt is interested in TCU at discharge. Pt's daughter in to see pt and requested to see this worker. SW back to meet with pt and pt's daughter . Per pt and pt is interested in TCU at discharge. This worker informed pt and pt's daughter that this worker will have to call TCU to check on bed availability. Pt and pt's daughter states understanding. Pt and pt's daughter denied additional needs or concerns at this time. LINDSAY placed a call to Brittany in TCU and per Brittany she doesn't have a bed available SW back in to see pt and pt's daughter to inform them that TCU doesn't have a bed available and asked for second choice. Per pt and pt's daughter [facility] is second choice. LINDSAY faxed referral to [facility]. LINDSAY will continue to follow along to assist with discharge planning. Plan: [facility] pending acceptance Rachel De Los Santos WASHCLOTH FOLDER, SENIOR FINANCE MANAGER
--- NOTE | 2018-01-31 13:22 | PCM.CONS.GEN ---
Reason for Consult Date of Consultation: 01/31/18 History of Present Illness: The patient is a 77 year old F with known end-stage COPD who presents with chills and shortness of breath The patient has had recurrent bouts of COPD exacerbation She is seen and followed as an outpatient She was last seen on December 30, 2017, her baseline examination shows a prolonged expiratory phase scattered rhonchi but no audible wheezing She has been on oxygen for 2 years currently on 3 L There is a history of asthma She did not indicate change in sputum, hemoptysis She reported no new chest pain Shortness of breath was severe and she is about 50% improved from that baseline. She has had an elevated bicarb and a low PO2 and a negative alpha-1 antitrypsin testing Since being hospitalized she had a chest x-ray showing bilateral pneumonia, patchy disease She has had resolution of white count, no fever and a positive [place] pneumo virus She currently is without wheezing and appetite is improved [] Past Medical History Past Medical History (Chronic Problems): Chronic Problems (Last Reviewed 12/03/17 @ 10:29 by Aj Gray MD) Normochromic normocytic anemia (Chronic) Iron deficiency (Chronic) Vertebral compression fracture (Chronic) History of malnutrition (Chronic) Restless leg syndrome (Chronic) Hypothyroidism (Chronic) Anxiety and depression (Chronic) Insomnia (Chronic) Paroxysmal atrial fibrillation (Chronic) COPD (chronic obstructive pulmonary disease) (Chronic) Chronic respiratory failure with hypoxia (Chronic) Allergies amoxicillin trihydrate [From Augmentin] Allergy (Verified 12/03/17 09:51) Rash gluten Allergy (Verified 12/03/17 09:51) Other potassium clavulanate [From Augmentin] Allergy (Verified 12/03/17 09:51) Rash risperidone [From Risperdal] Adverse Reaction (Severe, Verified 12/03/17 09:51) Other GOES CRAZY HALLICINATE esomeprazole magnesium [From Nexium] Adverse Reaction (Verified 12/03/17 09:51) Unknown furosemide [From Lasix] Adverse Reaction (Verified 12/03/17 09:51) CONFUSION CONFUSION Sulfa (Sulfonamide Antibiotics) Adverse Reaction (Verified 12/03/17 09:51) CONFUSION CONFUSION sulfamethoxazole [From Bactrim] Adverse Reaction (Verified 12/03/17 09:51) CONFUSION CONFUSION trimethoprim [From Bactrim] Adverse Reaction (Verified 12/03/17 09:51) CONFUSION CONFUSION Home Medications: Ambulatory Orders Medication Instructions Recorded Levothyroxine [Synthroid] 50 mcg PO DAILY 07/12/17 busPIRone [Buspar] 5 mg PO TID 07/23/17 Acetaminophen [Tylenol Tablet] 650 mg PO Q6H PRN PRN 09/13/17 Albuterol Aerosols [Ventolin 2.5 mg INHALATION Q2H PRN PRN 09/13/17 Aerosols] vial.neb. Guaifenesin [Mucinex] 1,200 mg PO BID 09/13/17 Sertraline HCl [Zoloft] 50 mg PO DAILY 09/13/17 Famotidine [Pepcid] 20 mg PO BID #60 tab 09/24/17 Hydrocortisone [Anusol Hc] 25 mg RECTAL TID PRN PRN #90 09/24/17 suppos. magnesium oxide 400 mg tablet 400 mg PO DAILY #90 tab 12/03/17 metoprolol tartrate 25 mg tablet 25 mg PO DAILY #90 tab 12/03/17 rivaroxaban 20 mg tablet 20 mg PO DINNER #90 tab 12/03/17 roflumilast 500 mcg tablet 500 mcg PO QDAY 12/03/17 Calcium Carb/Vitamin D [Os-Bud 1 tablet PO TIDCM 01/26/18 500MG + D] Fluticasone/Vilanterol [Breo 1 puff INHALATION DAILY 01/26/18 Ellipta 200-25 Mcg INH] Iron Polysaccharide Complex 150 mg PO DAILYCM 01/26/18 [Ferrex 150] Menthol/Lanolin/Calamine/Znox 1 applic TOPICAL 0600,2200 01/26/18 [Calmoseptine Ointment] Potassium Chloride 20 meq PO BID 01/26/18 Roflumilast [Daliresp] 1 tab PO DAILY 01/26/18 Umeclidinium [place] [Incruse 1 puff INHALATION DAILY 01/26/18 Ellipta] traZODone [Desyrel] 100 mg PO QHS 01/26/18 Surgical History: noncontributory Psychiatric History: Anxiety, Depression 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: No pertinent SOAPING MACHINE BACK TENDER history Lives: Spouse/ Significant Other Smoking Status: Former smoker Tobacco Use: Non-smoker Alcohol: Rare Drugs: None - *Family History Maternal History Items: No pertinent history Paternal History Items: No pertinent history Review of Systems Constitutional: Denies: Chills, Fever, Weight Change HEENT: Denies: Head Aches, Sinus Congestion, Sinus Drainage Cardiovascular: Denies: Chest Pain, Palpitations Respiratory: Denies: Cough, Shortness of breath at rest, Sputum production Gastrointestinal: Denies: Abdominal Pain, Nausea, Vomiting Genitourinary: Denies: Dysuria Musculoskeletal: Denies: Joint Pain, Joint Tenderness Skin: Denies: Rash, Wounds Neurological: Denies: Numbness, Tingling, Focal weakness Psychiatric: Denies: Anxiety, Depression, Homicidal Ideations, Suicidal Ideations Hematologic/ Lymphatic: Denies: Easy Bruising, Easy Bleeding Patient Problems: Active and Suspected Problems (Last Reviewed 12/03/17 @ 10:29 by Aj Gray MD) CAP (community acquired pneumonia) (Acute) COPD with acute exacerbation (Acute) Osteoporosis (Suspected) Hypomagnesemia (Acute) - Physical Exam General: Alert, Oriented x3, Cooperative HEENT: Atraumatic, PERRLA, EOMI, Normocephalic Oral: Dry Mucosa Neck: Supple, No JVD, Negative Carotid Bruits Lungs: - - Diminished breath sounds, barrel chest, poor chest expansion, no wheezes, minimal scattered rhonchi, no rales no egophony, no accessory muscle use Cardiovascular: No murmurs, Irregular Rate, - - No tachycardia Abdomen: Bowel Sounds Present, Soft, Non Tender Extremities: No edema, Capillary Refill Less than 3 Seconds Skin: No rashes, No breakdown Musculoskeletal: No Tenderness to Palpation of Joints or Extremities Neurological: Cranial nerves II-XII grossly intact, Motor Exam 5/5 strength throughout, Sensory exam intact to light touch and pain Psych/Mental Status: Normal Affect, Appropriate Vital Signs Temp Pulse Resp BP Pulse Ox 98.5 F 82 16 136/71 H 94 01/31/18 10:23 01/31/18 10:43 01/31/18 10:43 01/31/18 10:23 01/31/18 10:23 Oxygen Flow Rate (L/min) 3 Oxygen Delivery Method Nasal Cannula Weight: 61.2 kg Body Mass Index (BMI) 21.1 Intake and Output for Last 24 Hours 01/29/18 01/30/18 01/31/18 23:59 23:59 23:59 Intake Total 2796 / 2796 1457 / 1457 700 / 700 Balance 2796 / 2796 1457 / 1457 700 / 700 Microbiology Past 72 Hours 01/29/18 01:05 Respiratory Panel (PCR) - Final Mucosa - Nasopharyngeal Human [place] 01/26/18 17:20 Gram Stain - Final Sputum, Expectorated/Coughed Respiratory Culture - Final Presumptive C albicans Mixed Velvet Assessment/Plan Active and Suspected Problems (Last Reviewed 12/03/17 @ 10:29 by Aj Gray MD) CAP (community acquired pneumonia) (Acute) COPD with acute exacerbation (Acute) Osteoporosis (Suspected) Hypomagnesemia (Acute) Problem #1 is end-stage COPD O2 dependent problem Problem #2 is community-acquired pneumonia Problem #3 is meta pneumonia virus Problem #4 his atrial fibrillation Medications: Continue with oral prednisone 40 mg a day for 3 days 30 mg a day for 3 days 20 mg a day for 3 days, 10 mg for 3 days then stop Do recommend continuation of Daliresp 500 mg Accolate 20 mg Advair Diskus 501 twice daily Spiriva 1 puff As needed use of albuterol nebulized Continue Prilosec I would complete 5 more days of Levaquin and then discontinue Pulmonary toilet is warranted, flutter valve warranted Early and aggressive ambulation, follow-up after retirement
[2018-01-31] MEDS: levoFLOXacin 750 MG Tablet PO (13:42)
--- NOTE | 2018-01-31 16:16 | CASEMGMT ---
Social Work Note SW received a call from Alexa at [facility] stating that they are able to accept pt and that she will submit for pre-cert. Plan: [facility] pending pre-cert Rachel LARA, PLANT MAINTENANCE ENGINEER
[2018-01-31] MEDS: Montelukast 10 MG Tablet PO (17:23)
[2018-01-31] MEDS: Rivaroxaban 20 MG Tablet PO (17:23)
[2018-01-31] MEDS: traZODone 50 MG Tablet 100 MG PO (21:44)
[2018-02-01] VITALS (37 sets, daily range): BP systolic 101–138; BP diastolic 51–84; PULSE 71–122; RESP 12–27; TEMP 36.4–37; O2SAT 74–97
[2018-02-01] MEDS: Levothyroxine 50 MCG Tablet PO (06:33)
[2018-02-01] MEDS: busPIRone 5 MG Tablet PO ×3 (06:33→23:22)
[2018-02-01] MEDS: Acetylcysteine 800 MG/4 ML VIAL.NEB. INHALATION (07:04)
[2018-02-01] MEDS: Ipratropium/Albuterol Sulfate 3 ML AMPUL.NEB INHALATION ×5 (07:04→23:08)
--- NOTE | 2018-02-01 07:54 | NURSING ---
STAT ABGS DRAWN. O2 INCREASED FROM 3L ( AT HOME), SATS 67%, TO 5L, SATTING 95-97%.
[2018-02-01 08:11] LABS: Allen Test POS; Base Excess 19 mmol/L (-2 to +2); Bicarbonate 44.3 mmol/L (22-26); Blood Gas Specimen Type ART; O2 Delivery Device Nasal Can; PO2 76 mmHG (75-100); SITE L Radial; SO2 94 % (95-99); Time Given 755; Total Carbon Dioxide 47 mmol/L; pCO2 72.2 mmHg (35-45)
--- NOTE | 2018-02-01 09:19 | NURSING ---
abgs were reviewed and pt placed on bipap per steve pepper. per steve, okay to leave pt on ms at this time, will continue to monitor. placed on tele again
--- NOTE | 2018-02-01 09:33 | CASEMGMT ---
Social Work Note SW received a call from Alexa at [facility] stating that pre-cert is still pending. LINDSAY faxed updated clinicals to [facility]. Plan: [facility] pending pre-cert Rachel De Los Santos SAMPLE CLERK, EXPLOSIVE ORDNANCE HANDLER
[2018-02-01] MEDS: Calcium Carb/Vitamin D 1 TABLET Tablet PO ×3 (10:09→19:19)
[2018-02-01] MEDS: Famotidine 20 MG Tablet PO (10:10)
[2018-02-01] MEDS: predniSONE 20 MG Tablet 40 MG PO (10:10)
[2018-02-01] MEDS: Polyethylene Glycol 3350 17 GM PACKET PO (10:12)
[2018-02-01] MEDS: guaiFENesin 1,200 MG Tablet 1200 MG PO ×2 (10:15→23:24)
[2018-02-01] MEDS: Iron Polysaccharide Complex 150 MG CAPSULE PO (10:15)
[2018-02-01] MEDS: Magnesium Oxide 400 MG Tablet PO (10:15)
[2018-02-01] MEDS: Metoprolol Tartrate 25 MG Tablet PO ×2 (10:15→23:23)
[2018-02-01] MEDS: Sertraline 50 MG Tablet PO (10:15)
[2018-02-01] MEDS: 0.9% NaCl Peripheral Flush Adult/Peds IV ×3 (10:30→19:19)
--- NOTE | 2018-02-01 10:35 | RAD_ITS ---
STUDY: X-RAY CHEST REASON FOR EXAM: Female, 77 years old. Shortness of breath. Acute exacerbation of COPD. TECHNIQUE: Single AP portable view of the chest. COMPARISON: Comparison is made with prior study dated January 28, 2018. FINDINGS: EKG electrodes are seen. Hyperinflation. Residual patchy infiltrates in the lateral aspect of the right midlung as well as in the left suprahilar region. Stable increased markings at the lung bases suggestive of scarring. Blunting of both costophrenic angles. Normal size heart. Normal mediastinum and chris. Normal visualized pulmonary arteries. There is atherosclerotic calcification of the aortic arch with tortuosity. There are diffuse degenerative changes of the visualized thoracic spine. Normal visualized ribs, clavicles, and shoulders. There is no demonstrated abnormality of the visualized soft tissue structures of the upper abdomen. RAD/Chest 1 View (Portable) IMPRESSION: Hyperinflation. Residual infiltrate in the lateral aspect of the right upper lobe as well as in the left suprahilar region. Electronically Signed: Ho Schumacher MD at 11:12 EDT Tel [phone], Service support ,
[2018-02-01] MEDS: Metoprolol Tartrate 5 MG/5 ML Vial IV (12:10)
--- NOTE | 2018-02-01 12:29 | PCM.PROGNOTE ---
<Amirah Santillan - Last Filed: 02/01/18 12:38> Patient Problems: Active and Suspected Problems (Last Reviewed 12/03/17 @ 10:29 by Aj Gray MD) CAP (community acquired pneumonia) (Acute) COPD with acute exacerbation (Acute) Osteoporosis (Suspected) Hypomagnesemia (Acute) Subjective: Patient seen and examined. Nursing reports increased shortness of breath which began around 6 AM this morning. Denies chest pain or other associated complaints. Continues to have intermittent cough. Patient is improved from earlier this morning when I examined patient. She had ABGs drawn which showed a CO2 of 72. Requested BiPAP placement and stat chest x-ray. - Physical Exam General: Alert, Oriented x3, Cooperative, - - Appears in moderate respiratory distress HEENT: Atraumatic, PERRLA, EOMI, Normocephalic Oral: Dry Mucosa Neck: Supple, No JVD, Negative Carotid Bruits Lungs: Diminished, Wheezes - Few faint wheezes anteriorly Cardiovascular: Tachycardic, - - Atrial fibrillation Abdomen: Bowel Sounds Present, Soft, Non Tender, Non-Distended Extremities: No clubbing, No cyanosis, No edema, Capillary Refill Less than 3 Seconds Skin: No rashes, No breakdown Musculoskeletal: No Tenderness to Palpation of Joints or Extremities Neurological: Cranial nerves II-XII grossly intact, Neuro grossly intact Psych/Mental Status: Normal Affect, Appropriate Vital Signs Temp Pulse Resp BP Pulse Ox 98.0 F 110 H 20 H 114/74 92 02/01/18 12:00 02/01/18 12:10 02/01/18 12:00 02/01/18 12:00 02/01/18 12:00 Oxygen Flow Rate (L/min) 5 Oxygen Delivery Method Bi-pap Weight: 61.2 kg Body Mass Index (BMI) 21.1 Intake and Output for Last 24 Hours 01/30/18 01/31/18 02/01/18 23:59 23:59 23:59 Intake Total 1457 / 1457 700 / 700 300 / 300 Balance 1457 / 1457 700 / 700 300 / 300 Microbiology Past 72 Hours 01/29/18 01:05 Respiratory Panel (PCR) - Final Mucosa - Nasopharyngeal Human [place] 01/26/18 17:20 Gram Stain - Final Sputum, Expectorated/Coughed Respiratory Culture - Final Presumptive C albicans Mixed [facility] Tests Past 24 Hrs 02/01/18 08:03 Specimen Type ART Sample Site L Radial pH 7.40 Bicarbonate Actual 44.3 H POC Total CO2 47 Base Excess 19 H O2 Saturation 94 L ABG pCO2 72.2 H* ABG pO2 76 Rigo Test POS O2 Delivery Device Nasal Can Liter Flow 5.0 Blood Gas Notified Whom [facility] Blood Gas Notified Time 755 Medical Necessity - Tobacco Use Smoking Status: Former smoker Tobacco Use: Non-smoker Assessment/Plan Active and Suspected Problems (Last Reviewed 12/03/17 @ 10:29 by Aj Gray MD) CAP (community acquired pneumonia) (Acute) COPD with acute exacerbation (Acute) Osteoporosis (Suspected) Hypomagnesemia (Acute) Patient is a 77-year-old female admitted 01/26/18 due to shortness of breath. She has a past medical history of COPD, chronic hypoxic respiratory failure, hypothyroidism, anxiety, depression, suspected osteoporosis, multiple thoracic vertebral compression fractures, history of malnutrition, paroxysmal atrial fibrillation, restless leg syndrome, allergic rhinitis. 1. Right upper lobe community-acquired pneumonia-chest x-ray on admission showed right upper lobe airspace disease possibly representing pneumonia. Fever improved. No leukocytosis. IV azithromycin course completed. Stop IV Rocephin and begin oral Levaquin. Sputum culture showing mixed gregory. Continue Mucinex. Continue supplemental oxygen to maintain O2 at or above 90%. Albuterol DuoNeb aerosols. Bumex ?1 given for possible fluid overload. Patient's daughter asked for pulmonary consult. Dr. King, patients plastics engineer consulted who saw patient yesterday. No new recommendations. 2. Acute COPD exacerbation secondary to human metapneumovirus on end stage COPD with chronic hypoxic respiratory failure-Transitioned to prednisone. Albuterol and DuoNeb aerosols. Patient follows with Dr. King. States she is currently undergoing evaluation for CPAP device. Patient chronically wears 3 L nasal cannula baseline. Negative for influenza. Respiratory panel pending positive for human metaphneumo virus. Patient with increased shortness of breath this morning requiring increase in oxygen to 5 L nasal cannula. ABGs drawn which showed a CO2 of 72. Patient placed on BiPAP. Patient will be transferred to ICU for closer monitoring. Chest x-ray this morning showed hyperinflation, residual infiltrate in the lateral aspect of the right upper lobe as well as in this left suprahilar region. 3. Hypomagnesia-resolved. 4. Paroxysmal atrial fibrillation-tachycardic. Continue home metoprolol, Xarelto regimen. Metoprolol IV ?1. 5. Hypothyroidism-continue home Synthroid regimen. 6. Chronic iron deficiency anemia-at baseline, monitor CBC. 7. Anxiety, depression-continue home regimen of BuSpar, Zoloft. 8. Multiple thoracic vertebral compression fractures with suspected osteoporosis-continue Tylenol as needed for pain. Calcium/vitamin D supplementation. DVT prophylaxis-continue Xarelto. Discharge planning: TCU pending pre-cert, case management involved. This patient was seen by MAHAD Aranda under the supervision of Dr. Webster. <Catrachito Webster E - Last Filed: 02/01/18 12:51> - Physical Exam Vital Signs Temp Pulse Resp BP Pulse Ox 98.0 F 110 H 20 H 114/74 92 02/01/18 12:00 02/01/18 12:10 02/01/18 12:00 02/01/18 12:00 02/01/18 12:00 Oxygen Flow Rate (L/min) 5 Oxygen Delivery Method Bi-pap Weight: 134 lb 14.766 oz Body Mass Index (BMI) 21.1 Intake and Output for Last 24 Hours 01/30/18 01/31/18 02/01/18 23:59 23:59 23:59 Intake Total 1457 / 1457 700 / 700 300 / 300 Balance 1457 / 1457 700 / 700 300 / 300 Microbiology Past 72 Hours 01/29/18 01:05 Respiratory Panel (PCR) - Final Mucosa - Nasopharyngeal Human [place] 01/26/18 17:20 Gram Stain - Final Sputum, Expectorated/Coughed Respiratory Culture - Final Presumptive C albicans Mixed [facility] Tests Past 24 Hrs 02/01/18 08:03 Specimen Type ART Sample Site L Radial pH 7.40 Bicarbonate Actual 44.3 H POC Total CO2 47 Base Excess 19 H O2 Saturation 94 L ABG pCO2 72.2 H* ABG pO2 76 [place]igo Test POS O2 Delivery Device Nasal Can Liter Flow 5.0 Blood Gas Notified Whom [facility] Blood Gas Notified Time 755 Assessment/Plan Hospitalist note: I am seeing this patient in conjunction with Amirah Santillan. I independently seen and examined the patient. Progress note above reviewed and I agree with above treatment plan. Patient seen and examined today. Nursing staff reports that patient is more short of breath, dyspneic and tachypneic at rest this morning. ABG was performed and she had PCO2 of 72. She was started on BiPAP. Earlier, she feels better but she continued to have tachycardia and her pulse ox has been in the 90s on BiPAP. Patient transferred to intensive care unit. Physical examination: General: Alert, Oriented x3, Cooperative, - - Moderately short of breath on BiPAP. HEENT: Atraumatic, PERRLA, EOMI Oral: Moist Mucosa, No Gingival or Mucosal Lesions/ Ulcerations Neck: Supple, No JVD, Negative Carotid Bruits, Trachea Midline, Thyroid Normal Size and Texture Lungs: Diminished, Rales, Rhonchi, Short of Breath, Tachypneic, - - Decreased breath sounds bilateral, more at the bases. Cardiovascular: Regular rate, Regular Rhythm, Normal S1, Normal S2, PMI Normal, tachycardia. Abdomen: Bowel Sounds Present, Soft, Non Tender, Non-Distended, No Hepato-splenomegaly Extremities: No clubbing, No cyanosis, No edema Skin: No rashes, No breakdown Lymphatic: No Cervical, Supraclavicular, or Inguinal Adenopathy Neurological: Cranial nerves II-XII grossly intact, Motor Exam 5/5 strength throughout Psych/Mental Status: Normal Affect, Appropriate, Alert and oriented to time, place, person, mood and affect. Assessment and plan: This is a 77 years old female patient admitted because of worsening shortness of breath, found to have right upper lobe community acquired pneumonia and acute COPD exacerbation. Today, patient is more short of breath, dyspneic and tachypneic and she has CO2 tension on ABG. #1 right upper lobe community-acquired pneumonia: She is on day 5 of IV Rocephin, completed 3 days of Zithromax. She has been afebrile, no leukocytosis. Oxygen requirement increased up to 5 L this morning. ABG reviewed, revealed a PCO2 of 72, pH of 7.40.. Nasal swab for influenza a and B were negative. Respiratory panel for viruses was positive for human [place] virus. Plan: Transfer to ICU, continue BiPAP, consult critical care. #2 acute COPD exacerbation/acute on chronic hypercapnic respiratory failure: She is on oral steroids, IV antibiotics and bronchodilators. Reported no significant improvement of her symptoms. Oxygen requirement has been increasing as above. At this time, she is on BiPAP. Plan as above, restart IV steroids, critical care consult. #3 hypomagnesemia: Magnesium is replaced and corrected. #4 COPD/chronic respiratory failure: She has severe COPD/emphysema and she has been on home oxygen at 3 L at home. Plan as above. #5 paroxysmal A. fib: Rate has been around 100, but goes up to 120s sometimes., blood pressure stable. Continue metoprolol for rate control and Xarelto for anti-coagulation. #6 hypothyroidism: Continue levothyroxine. #7 chronic anemia: Normocytic anemia, baseline hemoglobin around 10-11 g/dL. most recent hemoglobin is 11.2 g/dL, stable. #8 chronic back pain/vertebral compression fractures: She is on Tylenol, pain is controlled. #9 anxiety/depression: Continue trazodone and Zoloft as well as BuSpar. #10 DVT prophylaxis: Continue Xarelto. This note was generated with [employer] dictation software. It may contain incorrect words, spelling, and punctuation that were not noted in checking the note before signing. Code Visit Inpatient E&M: 08818 Subs Hosp L3
--- NOTE | 2018-02-01 12:38 | PN_ITS ---
<Amirah Santillan - Last Filed: 02/01/18 12:38> Patient Problems: Active and Suspected Problems (Last Reviewed 12/03/17 @ 10:29 by Aj Gray MD ) CAP (community acquired pneumonia) (Acute) COPD with acute exacerbation (Acute) Osteoporosis (Suspected) Hypomagnesemia (Acute) Subjective: Patient seen and examined. Nursing reports increased shortness of breath which began around 6 AM this morning. Denies chest pain or other associated complaints. Continues to have intermittent cough. Patient is improved from earlier this morning when I examined patient. She had ABGs drawn which showed a CO2 of 72. Requested BiPAP placement and stat chest x-ray. - Physical Exam General: Alert, Oriented x3, Cooperative, - - Appears in moderate respiratory distress HEENT: Atraumatic, PERRLA, EOMI, Normocephalic Oral: Dry Mucosa Neck: Supple, No JVD, Negative Carotid Bruits Lungs: Diminished, Wheezes - Few faint wheezes anteriorly Cardiovascular: Tachycardic, - - Atrial fibrillation Abdomen: Bowel Sounds Present, Soft, Non Tender, Non-Distended Extremities: No clubbing, No cyanosis, No edema, Capillary Refill Less than 3 Seconds Skin: No rashes, No breakdown Musculoskeletal: No Tenderness to Palpation of Joints or Extremities Neurological: Cranial nerves II-XII grossly intact, Neuro grossly intact Psych/Mental Status: Normal Affect, Appropriate Vital Signs Temp Pulse Resp BP Pulse Ox 98.0 F 110 H 20 H 114/74 92 02/01/18 12:00 02/01/18 12:10 02/01/18 12:00 02/01/18 12:00 02/01/18 12:00 Oxygen Flow Rate (L/min) 5 Oxygen Delivery Method Bi-pap Weight: 61.2 kg Body Mass Index (BMI) 21.1 Intake and Output for Last 24 Hours 01/30/18 01/31/18 02/01/18 23:59 23:59 23:59 Intake Total 1457 / 1457 700 / 700 300 / 300 Balance 1457 / 1457 700 / 700 300 / 300 Microbiology Past 72 Hours 01/29/18 01:05 Respiratory Panel (PCR) - Final Mucosa - Nasopharyngeal Human Matinicus 01/26/18 17:20 Gram Stain - Final Sputum, Expectorated/Coughed Respiratory Culture - Final Presumptive C albicans Mixed [facility] Tests Past 24 Hrs 02/01/18 08:03 Specimen Type ART Sample Site L Radial pH 7.40 Bicarbonate Actual 44.3 H POC Total CO2 47 Base Excess 19 H O2 Saturation 94 L ABG pCO2 72.2 H* ABG pO2 76 Rigo Test POS O2 Delivery Device Nasal Can Liter Flow 5.0 Blood Gas Notified Whom [facility] Blood Gas Notified Time 755 Medical Necessity - Tobacco Use Smoking Status: Former smoker Tobacco Use: Non-smoker Assessment/Plan Active and Suspected Problems (Last Reviewed 12/03/17 @ 10:29 by Aj Gray MD ) CAP (community acquired pneumonia) (Acute) COPD with acute exacerbation (Acute) Osteoporosis (Suspected) Hypomagnesemia (Acute) Patient is a 77-year-old female admitted 01/26/18 due to shortness of breath. She has a past medical history of COPD, chronic hypoxic respiratory failure, hypothyroidism, anxiety, depression, suspected osteoporosis, multiple thoracic vertebral compression fractures, history of malnutrition, paroxysmal atrial fibrillation, restless leg syndrome, allergic rhinitis. 1. Right upper lobe community-acquired pneumonia-chest x-ray on admission showed right upper lobe airspace disease possibly representing pneumonia. Fever improved. No leukocytosis. IV azithromycin course completed. Stop IV Rocephin and begin oral Levaquin. Sputum culture showing mixed gregory. Continue Mucinex. Continue supplemental oxygen to maintain O2 at or above 90%. Albuterol DuoNeb aerosols. Bumex ?1 given for possible fluid overload. Patient's daughter asked for pulmonary consult. Dr. King, patients heavy equipment service manager consulted who saw patient yesterday. No new recommendations. 2. Acute COPD exacerbation secondary to human metapneumovirus on end stage COPD with chronic hypoxic respiratory failure-Transitioned to prednisone. Albuterol and DuoNeb aerosols. Patient follows with Dr. King. States she is currently undergoing evaluation for CPAP device. Patient chronically wears 3 L nasal cannula baseline. Negative for influenza. Respiratory panel pending positive for human metaphneumo virus. Patient with increased shortness of breath this morning requiring increase in oxygen to 5 L nasal cannula. ABGs drawn which showed a CO2 of 72. Patient placed on BiPAP. Patient will be transferred to ICU for closer monitoring. Chest x-ray this morning showed hyperinflation, residual infiltrate in the lateral aspect of the right upper lobe as well as in this left suprahilar region. 3. Hypomagnesia-resolved. 4. Paroxysmal atrial fibrillation-tachycardic. Continue home metoprolol, Xarelto regimen. Metoprolol IV ?1. 5. Hypothyroidism-continue home Synthroid regimen. 6. Chronic iron deficiency anemia-at baseline, monitor CBC. 7. Anxiety, depression-continue home regimen of BuSpar, Zoloft. 8. Multiple thoracic vertebral compression fractures with suspected osteoporosis-continue Tylenol as needed for pain. Calcium/vitamin D supplementation. DVT prophylaxis-continue Xarelto. Discharge planning: TCU pending pre-cert, case management involved. This patient was seen by MAHAD Aranda under the supervision of Dr. Webster. <Catrachito Webster E - Last Filed: 02/01/18 12:51> - Physical Exam Vital Signs Temp Pulse Resp BP Pulse Ox 98.0 F 110 H 20 H 114/74 92 02/01/18 12:00 02/01/18 12:10 02/01/18 12:00 02/01/18 12:00 02/01/18 12:00 Oxygen Flow Rate (L/min) 5 Oxygen Delivery Method Bi-pap Weight: 134 lb 14.766 oz Body Mass Index (BMI) 21.1 Intake and Output for Last 24 Hours 01/30/18 01/31/18 02/01/18 23:59 23:59 23:59 Intake Total 1457 / 1457 700 / 700 300 / 300 Balance 1457 / 1457 700 / 700 300 / 300 Microbiology Past 72 Hours 01/29/18 01:05 Respiratory Panel (PCR) - Final Mucosa - Nasopharyngeal Human M[place]icus 01/26/18 17:20 Gram Stain - Final Sputum, Expectorated/Coughed Respiratory Culture - Final Presumptive C albicans Mixed [facility] Tests Past 24 Hrs 02/01/18 08:03 Specimen Type ART Sample Site L Radial pH 7.40 Bicarbonate Actual 44.3 H POC Total CO2 47 Base Excess 19 H O2 Saturation 94 L ABG pCO2 72.2 H* ABG pO2 76 Rigo Test POS O2 Delivery Device Nasal Can Liter Flow 5.0 Blood Gas Notified Whom [facility]OS[facility] Blood Gas Notified Time 755 Assessment/Plan Hospitalist note: I am seeing this patient in conjunction with Amirah Santillan. I independently seen and examined the patient. Progress note above reviewed and I agree with above treatment plan. Patient seen and examined today. Nursing staff reports that patient is more short of breath, dyspneic and tachypneic at rest this morning. ABG was performed and she had PCO2 of 72. She was started on BiPAP. Earlier, she feels better but she continued to have tachycardia and her pulse ox has been in the 90s on BiPAP. Patient transferred to intensive care unit. Physical examination: General: Alert, Oriented x3, Cooperative, - - Moderately short of breath on BiPAP. HEENT: Atraumatic, PERRLA, EOMI Oral: Moist Mucosa, No Gingival or Mucosal Lesions/ Ulcerations Neck: Supple, No JVD, Negative Carotid Bruits, Trachea Midline, Thyroid Normal Size and Texture Lungs: Diminished, Rales, Rhonchi, Short of Breath, Tachypneic, - - Decreased breath sounds bilateral, more at the bases. Cardiovascular: Regular rate, Regular Rhythm, Normal S1, Normal S2, PMI Normal, tachycardia. Abdomen: Bowel Sounds Present, Soft, Non Tender, Non-Distended, No Hepato- splenomegaly Extremities: No clubbing, No cyanosis, No edema Skin: No rashes, No breakdown Lymphatic: No Cervical, Supraclavicular, or Inguinal Adenopathy Neurological: Cranial nerves II-XII grossly intact, Motor Exam 5/5 strength throughout Psych/Mental Status: Normal Affect, Appropriate, Alert and oriented to time, place, person, mood and affect. Assessment and plan: This is a 77 years old female patient admitted because of worsening shortness of breath, found to have right upper lobe community acquired pneumonia and acute COPD exacerbation. Today, patient is more short of breath, dyspneic and tachypneic and she has CO2 tension on ABG. #1 right upper lobe community-acquired pneumonia: She is on day 5 of IV Rocephin , completed 3 days of Zithromax. She has been afebrile, no leukocytosis. Oxygen requirement increased up to 5 L this morning. ABG reviewed, revealed a PCO2 of 72, pH of 7.40.. Nasal swab for influenza a and B were negative. Respiratory panel for viruses was positive for human Matinicus virus. Plan: Transfer to ICU, continue BiPAP, consult critical care. #2 acute COPD exacerbation/acute on chronic hypercapnic respiratory failure: She is on oral steroids, IV antibiotics and bronchodilators. Reported no significant improvement of her symptoms. Oxygen requirement has been increasing as above. At this time, she is on BiPAP. Plan as above, restart IV steroids, critical care consult. #3 hypomagnesemia: Magnesium is replaced and corrected. #4 COPD/chronic respiratory failure: She has severe COPD/emphysema and she has been on home oxygen at 3 L at home. Plan as above. #5 paroxysmal A. fib: Rate has been around 100, but goes up to 120s sometimes., blood pressure stable. Continue metoprolol for rate control and Xarelto for anti-coagulation. #6 hypothyroidism: Continue levothyroxine. #7 chronic anemia: Normocytic anemia, baseline hemoglobin around 10-11 g/dL. most recent hemoglobin is 11.2 g/dL, stable. #8 chronic back pain/vertebral compression fractures: She is on Tylenol, pain is controlled. #9 anxiety/depression: Continue trazodone and Zoloft as well as BuSpar. #10 DVT prophylaxis: Continue Xarelto. This note was generated with [employer] dictation software. It may contain incorrect words, spelling, and punctuation that were not noted in checking the note before signing. Code Visit Inpatient E&M: 01088 Subs Hosp L3
--- NOTE | 2018-02-01 12:59 | CASEMGMT ---
Social Work Note Pt transferred to ICU. This worker left message for Brittany JJS SW on ICU and Lillian DUBOIS who is following ICU today to provide update on pt. SW received a call from Fani at [facility]. This worker updated Fani of pt's current status and that Dr. Castrejon had mentioned possible Hospice consult and per Fani she will cancel pre-cert. SW on floor will continue to follow along to assist with discharge planning. Plan: TBD Rachel De Los Santos PROTECTOR PLATE ATTACHER, DIVISION ROADMASTER
--- NOTE | 2018-02-01 14:24 | PCM.CON.CC ---
Problem List (1) COPD with acute exacerbation Status: Acute (2) Iron deficiency Status: Chronic (3) Osteoporosis Status: Suspected (4) Vertebral compression fracture Status: Chronic (5) History of malnutrition Status: Chronic (6) Restless leg syndrome Status: Chronic (7) Hypothyroidism Status: Chronic (8) Paroxysmal atrial fibrillation Status: Chronic (9) COPD (chronic obstructive pulmonary disease) Status: Chronic (10) Chronic respiratory failure with hypoxia Status: Chronic Reason for Consult Date of Consultation: 02/01/18 Reason for Consultation: Respiratory failure History of Present Illness: The patient is a 77 year old F with past medical history listed below, who presented to [facility] on 01/26/2018 secondary to increasing shortness of breath and a dry nonproductive cough. Patient had had some rhinorrhea with sneezing and watery eyes recently. Patient reportedly took Claritin-D no some concern for the development of A. fib with RVR. Patient was admitted to the hospital with the preliminary diagnosis of acute COPD exacerbation with a right upper lobe pneumonia. Patient has been on the floor for approximately the last week and had been improving. He was eventually found to be positive for human Metapneumovirus. However, over the last 24 hours, patient has had progressive respiratory depression requiring BiPAP rescue. Chest x-ray showed hyperinflation with residual right upper lobe infiltrate. An ABG on BiPAP therapy showed CO2 retention with compensation and an increased AA gradient. While in the intensive care unit, patient reports subjective improvement to dyspnea following initiation of BiPAP therapy. Patient denies any concomitant chest pain, abdominal pain, nausea or vomiting. Patient has not reported any hemoptysis, epistaxis or melena. Did discuss CODE STATUS with the patient. Patient states that she would want to be a DNR Comfort Care arrest without intubation. His was at the bedside and agrees. Past Medical History Past Medical History (Chronic Problems): Chronic Problems (Last Reviewed 12/03/17 @ 10:29 by Aj Gray MD) Normochromic normocytic anemia (Chronic) Iron deficiency (Chronic) Vertebral compression fracture (Chronic) History of malnutrition (Chronic) Restless leg syndrome (Chronic) Hypothyroidism (Chronic) Anxiety and depression (Chronic) Insomnia (Chronic) Paroxysmal atrial fibrillation (Chronic) COPD (chronic obstructive pulmonary disease) (Chronic) Chronic respiratory failure with hypoxia (Chronic) Allergies amoxicillin trihydrate [From Augmentin] Allergy (Verified 12/03/17 09:51) Rash gluten Allergy (Verified 12/03/17 09:51) Other potassium clavulanate [From Augmentin] Allergy (Verified 12/03/17 09:51) Rash risperidone [From Risperdal] Adverse Reaction (Severe, Verified 12/03/17 09:51) Other GOES CRAZY HALLICINATE esomeprazole magnesium [From Nexium] Adverse Reaction (Verified 12/03/17 09:51) Unknown furosemide [From Lasix] Adverse Reaction (Verified 12/03/17 09:51) CONFUSION CONFUSION Sulfa (Sulfonamide Antibiotics) Adverse Reaction (Verified 12/03/17 09:51) CONFUSION CONFUSION sulfamethoxazole [From Bactrim] Adverse Reaction (Verified 12/03/17 09:51) CONFUSION CONFUSION trimethoprim [From Bactrim] Adverse Reaction (Verified 12/03/17 09:51) CONFUSION CONFUSION Home Medications: Ambulatory Orders Medication Instructions Recorded Levothyroxine [Synthroid] 50 mcg PO DAILY 07/12/17 busPIRone [Buspar] 5 mg PO TID 07/23/17 Acetaminophen [Tylenol Tablet] 650 mg PO Q6H PRN PRN 09/13/17 Albuterol Aerosols [Ventolin 2.5 mg INHALATION Q2H PRN PRN 09/13/17 Aerosols] vial.neb. Guaifenesin [Mucinex] 1,200 mg PO BID 09/13/17 Sertraline HCl [Zoloft] 50 mg PO DAILY 09/13/17 Famotidine [Pepcid] 20 mg PO BID #60 tab 09/24/17 Hydrocortisone [Anusol Hc] 25 mg RECTAL TID PRN PRN #90 09/24/17 suppos. magnesium oxide 400 mg tablet 400 mg PO DAILY #90 tab 12/03/17 metoprolol tartrate 25 mg tablet 25 mg PO DAILY #90 tab 12/03/17 rivaroxaban 20 mg tablet 20 mg PO DINNER #90 tab 12/03/17 roflumilast 500 mcg tablet 500 mcg PO QDAY 12/03/17 Calcium Carb/Vitamin D [Os-Bud 1 tablet PO TIDCM 01/26/18 500MG + D] Fluticasone/Vilanterol [Breo 1 puff INHALATION DAILY 01/26/18 Ellipta 200-25 Mcg INH] Iron Polysaccharide Complex 150 mg PO DAILYCM 01/26/18 [Ferrex 150] Menthol/Lanolin/Calamine/Znox 1 applic TOPICAL 0600,2200 01/26/18 [Calmoseptine Ointment] Potassium Chloride 20 meq PO BID 01/26/18 Roflumilast [Daliresp] 1 tab PO DAILY 01/26/18 Umeclidinium [place] [Incruse 1 puff INHALATION DAILY 01/26/18 Ellipta] traZODone [Desyrel] 100 mg PO QHS 01/26/18 Surgical History: noncontributory Psychiatric History: Anxiety, Depression PROCUREMENT ASSISTANT History: No pertinent PROCUREMENT ASSISTANT history Lives: Spouse/ Significant Other Smoking Status: Former smoker Tobacco Use: Non-smoker Alcohol: Rare Drugs: None - *Family History Maternal History Items: No pertinent history Paternal History Items: No pertinent history Review of Systems Comment: See HPI, otherwise negative ?10 systems Patient Problems: Active and Suspected Problems (Last Reviewed 12/03/17 @ 10:29 by Aj Gray MD) CAP (community acquired pneumonia) (Acute) COPD with acute exacerbation (Acute) Osteoporosis (Suspected) Hypomagnesemia (Acute) Objective: Imaging was personally reviewed. I agree with formal interpretation. - Physical Exam General: Alert, Oriented x3, Cooperative, No apparent distress, - - Good BiPAP synchrony. HEENT: Atraumatic, PERRLA, EOMI, Normocephalic, - - Scleral injection without icterus. BiPAP mask is too small for the patient has been increased to a medium. Oral: Moist Mucosa, No Gingival or Mucosal Lesions/ Ulcerations Neck: Supple, No JVD, No Nodes, Trachea Midline Lungs: No rhonchi, No rales, Diminished, Wheezes, - - Symmetric expansion. No dullness to percussion. Cardiovascular: Normal S1, Normal S2, No murmurs, Irregular Rate, No rub noted, No Gallop Abdomen: Bowel Sounds Present, Soft, Non Tender, Non-Distended Extremities: No clubbing, No cyanosis, No edema, Capillary Refill Less than 3 Seconds Skin: No rashes, No breakdown Musculoskeletal: No Tenderness to Palpation of Joints or Extremities Lymphatic: No Cervical, Supraclavicular, or Inguinal Adenopathy Neurological: Cranial nerves II-XII grossly intact, Neuro grossly intact, Motor Exam 5/5 strength throughout Psych/Mental Status: Alert and oriented to time, place, person, mood and affect Vital Signs Temp Pulse Resp BP Pulse Ox 36.7 C 75 22 H 114/74 94 02/01/18 12:00 02/01/18 12:53 02/01/18 12:53 02/01/18 12:00 02/01/18 12:53 Oxygen Flow Rate (L/min) 5 Oxygen Delivery Method Bi-pap Weight: 61.2 kg Body Mass Index (BMI) 21.1 Intake and Output for Last 24 Hours 01/30/18 01/31/18 02/01/18 23:59 23:59 23:59 Intake Total 1457 / 1457 700 / 700 300 / 300 Balance 1457 / 1457 700 / 700 300 / 300 Microbiology Past 72 Hours 01/29/18 01:05 Respiratory Panel (PCR) - Final Mucosa - Nasopharyngeal Human [place] [facility] Tests Past 24 Hrs 02/01/18 08:03 Specimen Type ART Sample Site L Radial pH 7.40 Bicarbonate Actual 44.3 H POC Total CO2 47 Base Excess 19 H O2 Saturation 94 L ABG pCO2 72.2 H* ABG pO2 76 Rigo Test POS O2 Delivery Device Nasal Can Liter Flow 5.0 Blood Gas Notified Whom [facility]OS[facility] Blood Gas Notified Time 755 Clinical Impression(s) from Imaging Studies Chest X-Ray 02/01/18 10:35 IMPRESSION: Hyperinflation. Residual infiltrate in the lateral aspect of the right upper lobe as well as in the left suprahilar region. Electronically Signed: Ho Schumacher MD at 11:12 EDT Tel [phone], Service support , Assessment/Plan Active and Suspected Problems (Last Reviewed 12/03/17 @ 10:29 by Aj Gray MD) CAP (community acquired pneumonia) (Acute) COPD with acute exacerbation (Acute) Osteoporosis (Suspected) Hypomagnesemia (Acute) RECOMMENDATIONS: 1. Change Solu-Medrol dosing 2. Discontinue antibiotics and Mucomyst 3. BiPAP breaks as tolerated during the day 4. Wean oxygen as tolerated 5. CODE STATUS to DNR Comfort Care arrest without intubation 6. Continue with anticoagulation for now IMPRESSIONS: 1. Acute on chronic combined respiratory failure secondary to human Metapneumovirus Patient with acute decompensation over the last 24-48 hours. Unclear etiology at this time. We will continue with steroid therapy. Doubtful that antibiotics are making much of a change at 48 hours. Okay to discontinue from my perspective. Wean oxygen as tolerated. BiPAP breaks as tolerated. Patient is a DNR Comfort Care arrest without intubation. 2. Personal history of COPD with unknown severity Patient seen by Dr. King as an outpatient. Unknown last pulmonary function test. Patient was on appropriate inhaler therapy, but it is unclear on delivery given patient's acute bronchospasm. 3. Atrial fibrillation with paroxysmal RVR and preserved ejection fraction congestive heart failure Patient's rate appears to be well-controlled at this time on Lopressor therapy. Patient does take anticoagulation at baseline. Heart rate is much better following initiation of BiPAP therapy. Cannot exclude an element of flash pulmonary edema secondary to A. fib with RVR and diastolic dysfunction. We will continue to monitor. 4. Advanced age/hypothyroidism/anxiety/deconditioning Locates care, management, recovery and prognosis. Patient with recent similiar type of presentation in August 2017. Okay to continue with baseline medications. TIME: 32 minutes critical care time spent addressing patient's acute on chronic combined respiratory failure, A. fib, review of all data and collaboration with care team. (1 PM to 2:43 PM) Code Visit 9xxxx: [id number] Critical care first hour
[2018-02-01] MEDS: Montelukast 10 MG Tablet PO (19:19)
[2018-02-01] MEDS: Rivaroxaban 20 MG Tablet PO (19:19)
[2018-02-01 21:42] LABS: M R Staph aureus DNA By PCR Negative (Negative); Probe Check PASS; Specimen Processing Control PASS
[2018-02-01] MEDS: traZODone 50 MG Tablet 100 MG PO (23:22)
[2018-02-02] VITALS (41 sets, daily range): BP systolic 74–155; BP diastolic 42–87; PULSE 66–149; RESP 12–25; TEMP 36.6–37.1; O2SAT 90–98
[2018-02-02] MEDS: dilTIAZem 25 MG/5 ML Vial 10 MG IV BOLUS (00:35)
[2018-02-02] MEDS: Ipratropium/Albuterol Sulfate 3 ML AMPUL.NEB INHALATION ×4 (03:14→18:42)
[2018-02-02 04:22] LABS: Absolute Lymphocyte Count 0.39 X10^3/ul (0.83-4.51); Absolute Neutrophil Count 5.7 X10^3/uL (2.0-7.7); Basophil# 0.01 X10^3/uL; Basophil% 0.2 % (0-1); Hematocrit 41.8 % (37-47); Hemoglobin 12.6 g/dl (12.0-15.0); Lymphocyte # 0.39 X10^3/ul (4.0); Lymphocyte % 6.3 % (19-41); Mean Corp Hgb Conc 30.1 g/gl (32-36); Mean Corpuscular Hgb 28.3 pg (27.0-32.0); Mean Corpuscular Volume 93.7 fL (81-99); Mean Platelet Vol. 9.3 fl (6.2-12.0); Monocyte# 0.12 X10^3/uL; Monocyte% 1.9 % (0-10); Neutrophil # 5.66 X10^3/uL (2.7-7.7); Neutrophil % 90.8 % (47-70); Platelet Count 343 K/mm3 (150-450); RBC Distribution Width CV 15.4 % (11.6-14.6); RBC Distribution Width SD 52.5 fl (35.1-43.9); Red Blood Count 4.46 M/mm3 (4.2-5.4); White Blood Count 6.2 K/mm3 (4.4-11.0)
[2018-02-02 04:36] LABS: Anion Gap 4 (5-15); BUN 23 mg/dL (7-18); BUN/Creat Ratio 45.5 RATIO (10-20); Calcium,Total 10.3 mg/dL (8.5-10.1); Chloride 96 mmol/L (98-107); EST Glomerular Filtration Rate 126 mL/min (>60); Est Glom Filt Rate - Afr Amer 152 mL/min (>60); Estimated Creatinine Clearance 42.08 ml/min; Glucose 142 mg/dL (74-106); Sodium Level 140 mmol/L (136-145)
[2018-02-02 04:37] LABS: Differential Indicated SCAN CRITERIA MET; POSITIVE COUNT NO; POSITIVE DIFFERENTIAL YES; POSITIVE MORPHOLOGY NO
[2018-02-02 05:17] LABS: Differential Comment SCANNED; Platelet Estimate SLT INC (ADEQ)
[2018-02-02] MEDS: Levothyroxine 50 MCG Tablet PO (05:54)
[2018-02-02] MEDS: busPIRone 5 MG Tablet PO ×3 (05:54→21:15)
[2018-02-02] MEDS: 0.9% NaCl Peripheral Flush Adult/Peds IV ×2 (05:57→13:35)
--- NOTE | 2018-02-02 06:09 | PCM.PN.INT ---
Subjective: Patient did okay overnight. Nursing reports the patient with A. fib with RVR with a heart rate of approximately 150 at 10 PM. Patient was initiated on Cardizem with a drip, but was unable to tolerate secondary to blood pressure issues. Patient did convert shortly after initiation of Cardizem though. Patient reports increased shortness of breath associated with the event. General: Alert, Oriented x3, Cooperative, No apparent distress, - - Currently on BiPAP break and tolerating well. HEENT: Atraumatic, PERRLA, EOMI, Normocephalic, - - No scleral icterus or injection noted. Oral: Moist Mucosa, No Gingival or Mucosal Lesions/ Ulcerations Neck: Supple, No JVD, No Nodes, Trachea Midline Lungs: No rhonchi, No rales, Diminished, Wheezes - End exhalation in left upper lobe, - - Symmetric expansion. No dullness to percussion. Cardiovascular: Regular rate, Regular Rhythm, Normal S1, Normal S2, No murmurs, No rub noted, No Gallop Abdomen: Bowel Sounds Present, Soft, Non Tender, Non-Distended Extremities: No clubbing, No cyanosis, No edema, Capillary Refill Less than 3 Seconds Skin: No rashes, No breakdown Musculoskeletal: No Tenderness to Palpation of Joints or Extremities Lymphatic: No Cervical, Supraclavicular, or Inguinal Adenopathy Neurological: Cranial nerves II-XII grossly intact, Neuro grossly intact, Motor Exam 5/5 strength throughout Psych/Mental Status: Alert and oriented to time, place, person, mood and affect Vital Signs Temp Pulse Resp BP Pulse Ox 37.1 C 73 17 101/47 L 94 02/02/18 02:00 02/02/18 05:00 02/02/18 05:00 02/02/18 05:00 02/02/18 05:00 Oxygen Flow Rate (L/min) 3 Oxygen Delivery Method Bi-pap Weight: 55.7 kg Body Mass Index (BMI) 21.1 Intake and Output for Last 24 Hours 01/31/18 02/01/18 02/02/18 23:59 23:59 23:59 Intake Total 700 / 700 400 / 400 500 / 500 Output Total 275 / 275 350 / 350 Balance 700 / 700 125 / 125 150 / 150 Labs (Last 48 Hours) 02/01/18 02/01/18 02/02/18 08:03 13:00 04:10 WBC 6.2 RBC 4.46 Hgb 12.6 Hct 41.8 MCV 93.7 MCH 28.3 MCHC 30.1 L RDW 15.4 H RDW Differential 52.5 H Plt Count 343 MPV 9.3 Immature Gran % (Auto) 0.800 Neut % (Auto) 90.8 H Lymph % (Auto) 6.3 L [place] % (Auto) 1.9 Eos % (Auto) 0.0 Baso % (Auto) 0.2 Absolute Neuts (auto) 5.7 Absolute Lymphs (auto) 0.39 L Total Counted Not Reportable Differential Comment SCANNED Platelet Estimate SLT INC Specimen Type ART Sample Site L Radial pH 7.40 Bicarbonate Actual 44.3 H POC Total CO2 47 Base Excess 19 H O2 Saturation 94 L ABG pCO2 72.2 H* ABG pO2 76 Rigo Test POS O2 Delivery Device Nasal Can Liter Flow 5.0 Blood Gas Notified Whom HOSP MD Blood Gas Notified Time 755 Sodium Potassium Chloride Carbon Dioxide Anion Gap BUN Creatinine Estim Creat Clear Calc Est GFR (MDRD) Af Amer Est GFR (MDRD) Non-Af BUN/Creatinine Ratio Glucose Calcium MRSA (PCR) Negative 02/02/18 04:10 WBC RBC Hgb Hct MCV MCH MCHC RDW RDW Differential Plt Count MPV Immature Gran % (Auto) Neut % (Auto) Lymph % (Auto) [place] % (Auto) Eos % (Auto) Baso % (Auto) Absolute Neuts (auto) Absolute Lymphs (auto) Total Counted Differential Comment Platelet Estimate Specimen Type Sample Site pH Bicarbonate Actual POC Total CO2 Base Excess O2 Saturation ABG pCO2 ABG pO2 [place]igo Test O2 Delivery Device Liter Flow Blood Gas Notified Whom Blood Gas Notified Time Sodium 140 Potassium 5.0 Chloride 96 L Carbon Dioxide 40.0 H Anion Gap 4 L BUN 23 H Creatinine 0.50 L Estim Creat Clear Calc 42.08 Est GFR (MDRD) Af Amer 152 Est GFR (MDRD) Non-Af 126 BUN/Creatinine Ratio 45.5 H Glucose 142 H Calcium 10.3 H MRSA (PCR) Microbiology 01/29/18 01:05 Mucosa - Nasopharyngeal Respiratory Panel (PCR) - Final Human Brewer Clinical Impression(s) from Imaging Studies Chest X-Ray 02/01/18 10:35 IMPRESSION: Hyperinflation. Residual infiltrate in the lateral aspect of the right upper lobe as well as in the left suprahilar region. Electronically Signed: Ho Schumacher MD at 11:12 EDT Tel [phone], Service support , Medical Necessity - Tobacco Use Smoking Status: Former smoker Tobacco Use: Non-smoker Assessment/Plan Active and Suspected Problems (Last Reviewed 12/03/17 @ 10:29 by Aj Gray MD) CAP (community acquired pneumonia) (Acute) COPD with acute exacerbation (Acute) Osteoporosis (Suspected) Hypomagnesemia (Acute) RECOMMENDATIONS: 1. Wean Solu-Medrol 2. Decrease bronchodilator frequency 3. BiPAP breaks as tolerated during the day 4. Wean oxygen as tolerated 5. CODE STATUS to DNR Comfort Care arrest without intubation 6. Continue with anticoagulation for now IMPRESSIONS: 1. Acute on chronic combined respiratory failure secondary to human Metapneumovirus Patient with acute decompensation over the last 24-48 hours. She does not appear to have significant leukocytosis or fever overnight. However, patient did have A. fib with RVR with acute worsening in respiratory status indicating a probable acute on chronic diastolic congestive heart failure leading to some pulmonary edema. Patient currently on a BiPAP break. Will decrease bronchodilators to help with adrenergic tone. Wean steroids. Increase activity as tolerated. 2. Personal history of COPD with unknown severity Patient seen by Dr. King as an outpatient. Unknown last pulmonary function test. Patient was on appropriate inhaler therapy, but it is unclear on delivery given patient's acute bronchospasm. Patient will be continued on bronchodilators and IV steroids for now. 3. Atrial fibrillation with paroxysmal RVR and preserved ejection fraction congestive heart failure Patient's rate appears to be well-controlled at this time on Lopressor therapy. Patient does take anticoagulation at baseline. Heart rate is much better following initiation of BiPAP therapy. It appears that acute decompensation of respiratory status secondary to flash pulmonary edema secondary to A. fib with RVR and diastolic dysfunction. May consult cardiology for evaluation of initiation of amiodarone if continues to recur. 4. Advanced age/hypothyroidism/anxiety/deconditioning Complicates care, management, recovery and prognosis. Patient with recent similiar type of presentation in August 2017. Okay to continue with baseline medications. Code Visit Inpatient E&M: [id number] [facility] Hosp L3
[2018-02-02] MEDS: Iron Polysaccharide Complex 150 MG CAPSULE PO (08:46)
[2018-02-02] MEDS: Calcium Carb/Vitamin D 1 TABLET Tablet PO ×3 (08:46→16:51)
--- NOTE | 2018-02-02 08:48 | CON.PCM_ITS ---
Problem List (1) Paroxysmal atrial fibrillation Status: Chronic Reason for Consult Date of Consultation: 02/02/18 Reason for Consultation: Paroxysmal atrial fibrillation History of Present Illness: The patient is a 77 year old F, patient of Dr. Gray's, recently admitted to the hospital in September 2017 for COPD exacerbation, previous to that was seen by Dr. Gray in June 2017. At that time she was found to have atrial fibrillation with RVR superimposed on her severe COPD and emphysema. She is on chronic 3 L nasal cannula. At that time she was seen by Dr. Gray and prescribed beta-ravindra therapy. Patient had an echocardiogram done in June 2017 which showed normal LVEF of 60%, and RVSP of 29 mmHg. Patient does not know whether she has had a stress test before but denies a previous catheterization. Patient was doing well up until the past few days when she developed productive cough, sputum, a warm feeling but no overt fevers, shortness of breath, with intermittent palpitations. She was admitted and diagnosed with a COPD exacerbation once again, and during treatment she developed paroxysmal atrial fibrillation with rapid ventricular response. The patient was treated with IV Cardizem followed by Cardizem drip and chemically cardioverted back to normal sinus rhythm almost immediately. Cardizem drip is now off. She has had normal sinus rhythm with PACs overnight. Patient quit smoking around 18 years ago after a long smoking history. Patient denies any chest pain, angina, shortness of breath or dyspnea on exertion. She reports that she is taking and tolerating her medicines well. She denies any presyncope or syncope. Past Medical History Allergies/Adverse Reactions: Allergies amoxicillin trihydrate [From Augmentin] Allergy (Verified 12/03/17 09:51) Rash gluten Allergy (Verified 12/03/17 09:51) Other potassium clavulanate [From Augmentin] Allergy (Verified 12/03/17 09:51) Rash risperidone [From Risperdal] Adverse Reaction (Severe, Verified 12/03/17 09:51) Other GOES CRAZY HALLICINATE esomeprazole magnesium [From Nexium] Adverse Reaction (Verified 12/03/17 09:51) Unknown furosemide [From Lasix] Adverse Reaction (Verified 12/03/17 09:51) CONFUSION CONFUSION Sulfa (Sulfonamide Antibiotics) Adverse Reaction (Verified 12/03/17 09:51) CONFUSION CONFUSION sulfamethoxazole [From Bactrim] Adverse Reaction (Verified 12/03/17 09:51) CONFUSION CONFUSION trimethoprim [From Bactrim] Adverse Reaction (Verified 12/03/17 09:51) CONFUSION CONFUSION Home Medications: Ambulatory Orders Medication Instructions Recorded Levothyroxine [Synthroid] 50 mcg PO DAILY 07/12/17 busPIRone [Buspar] 5 mg PO TID 07/23/17 Acetaminophen [Tylenol Tablet] 650 mg PO Q6H PRN PRN 09/13/17 Albuterol Aerosols [Ventolin 2.5 mg INHALATION Q2H PRN PRN 09/13/17 Aerosols] vial.neb. Guaifenesin [Mucinex] 1,200 mg PO BID 09/13/17 Sertraline HCl [Zoloft] 50 mg PO DAILY 09/13/17 Famotidine [Pepcid] 20 mg PO BID #60 tab 09/24/17 Hydrocortisone [Anusol Hc] 25 mg RECTAL TID PRN PRN #90 09/24/17 suppos. magnesium oxide 400 mg tablet 400 mg PO DAILY #90 tab 12/03/17 metoprolol tartrate 25 mg tablet 25 mg PO DAILY #90 tab 12/03/17 rivaroxaban 20 mg tablet 20 mg PO DINNER #90 tab 12/03/17 roflumilast 500 mcg tablet 500 mcg PO QDAY 12/03/17 Calcium Carb/Vitamin D [Os-Bud 1 tablet PO TIDCM 01/26/18 500MG + D] Fluticasone/Vilanterol [Breo 1 puff INHALATION DAILY 01/26/18 Ellipta 200-25 Mcg INH] Iron Polysaccharide Complex 150 mg PO DAILYCM 01/26/18 [Ferrex 150] Menthol/Lanolin/Calamine/Znox 1 applic TOPICAL 0600,2200 01/26/18 [Calmoseptine Ointment] Potassium Chloride 20 meq PO BID 01/26/18 Roflumilast [Daliresp] 1 tab PO DAILY 01/26/18 Umeclidinium [place] [Incruse 1 puff INHALATION DAILY 01/26/18 Ellipta] traZODone [Desyrel] 100 mg PO QHS 01/26/18 Past Medical History (Chronic Problems): Chronic Problems (Last Reviewed 12/03/17 @ 10:29 by Aj Gray MD) Normochromic normocytic anemia (Chronic) Iron deficiency (Chronic) Vertebral compression fracture (Chronic) History of malnutrition (Chronic) Restless leg syndrome (Chronic) Hypothyroidism (Chronic) Anxiety and depression (Chronic) Insomnia (Chronic) Paroxysmal atrial fibrillation (Chronic) COPD (chronic obstructive pulmonary disease) (Chronic) Chronic respiratory failure with hypoxia (Chronic) Surgical History: noncontributory Psychiatric History: Anxiety, Depression [employer] History: No pertinent [employer] history - *Family History Maternal History Items: No pertinent history Paternal History Items: No pertinent history Lives: Spouse/ Significant Other Smoking Status: Former smoker Tobacco Use: Non-smoker Alcohol: Rare Drugs: None Review of Systems - Review of Systems General: Reports: Fever Cardiovascular: Reports: Shortness of Breath, Shortness of Breath at Rest, Palpitations Respiratory: Reports: Cough, Sputum Production Gastrointestinal: Denies: Hematemesis, Hematochezia, Melena Genitourinary: Denies: Dysuria, Hematuria Subjectve: Patient laying in bed flat, no acute distress. Objective: Vital Signs Temp Pulse Resp BP Pulse Ox 97.8 F 67 20 H 134/52 H 94 02/02/18 07:44 02/02/18 08:00 02/02/18 08:00 02/02/18 08:00 02/02/18 08:00 Oxygen Flow Rate (L/min) 2 Oxygen Delivery Method Nasal Cannula Weight: 122 lb 12.76 oz Body Mass Index (BMI) 21.1 Intake and Output for Last 24 Hours 01/31/18 02/01/18 02/02/18 23:59 23:59 23:59 Intake Total 700 / 700 400 / 400 500 / 500 Output Total 275 / 275 350 / 350 Balance 700 / 700 125 / 125 150 / 150 General: Awake, Alert, Oriented x 3 HEENT: PERRL, EOMI, Sclera Non Icteric Neck: Supple, Good ROM, No Lymph Node Enlargement Lungs: Clear to auscultation Cardiovascular: Regular Rhythm, Premature Ectopic Beats, Normal S1, Normal S2, No Murmurs, No Rubs, No Gallops Vascular: No Carotid Bruits, Normal Femoral Pulses, Normal Radial Pulses, Normal Dorsalis Pedal Pulse, Normal Posterior Tibial Pulses Abdomen: Bowel Sounds Present, Soft, Non Tender, No HSM, No Organomegaly Extremities: No Cyanosis, No Clubbing, No edema Neurological: No Focal Motor or Sensory Deficit 05/16/18 04:10: WBC 6.2, RBC 4.46, Hgb 12.6, Hct 41.8, MCV 93.7, MCH 28.3, MCHC 30.1 L, RDW 15.4 H, RDW Differential 52.5 H, Plt Count 343, MPV 9.3, Immature Gran % (Auto) 0.800, Neut % (Auto) 90.8 H, Lymph % (Auto) 6.3 L, [place] % (Auto) 1.9, Eos % (Auto) 0.0, Baso % (Auto) 0.2, Absolute Neuts (auto) 5.7, Total Counted Not Reportable 02/02/18 04:10: Sodium 140, Potassium 5.0, Chloride 96 L, Carbon Dioxide 40.0 H , Anion Gap 4 L, BUN 23 H, Creatinine 0.50 L, Est GFR (MDRD) Af Amer 152, Est GFR (MDRD) Non-Af 126, BUN/Creatinine Ratio 45.5 H, Glucose 142 H, Calcium 10.3 H Rhythm: EKG: EKG shows atrial flutter with controlled ventricular response, low voltage , no acute changes. This converted to normal sinus rhythm. ECHO: Previous echo from June 2017 shows an EF of 60% and RVSP of 29 mmHg. Stress Test: Cardiac Cath: PCI: CT Surgery: Holter monitor: EPS: PPM: CXR: Chest CT Scan: Assessment/Plan 1. Paroxysmal atrial fibrillation: The patient has had several admissions with atrial fibrillation/atrial flutter with rapid ventricular response which appears to respond to Cardizem. It may be that her beta-ravindra therapy may be exacerbating her COPD, or at the very least not helping. She appears to respond well to Cardizem in both IV and drip format and is converted back to normal sinus rhythm. Her echocardiogram in June showed normal LV function. I do not recommend repeating her echocardiogram at this time. Would recommend discontinuation of her beta-ravindra therapy as this may be exacerbating her COPD, and switching her to Cardizem CD 180 mg p.o. daily starting now. If her heart rhythm is not controlled with this, we may have to consider increasing her dosage of Cardizem, or adding amiodarone despite her COPD. Given the patient's long smoking history, we may want to consider obtaining a non-walking nuclear stress test when she has recovered from her COPD exacerbation given her long smoking history and frequent readmissions. 2. Thank you very much for the opportunity to precipitate the cardiac care of your patient. Consultation time took place between 815 and 8:45 AM. Code Visit Inpatient E&M: 02124 Init Hosp L2
--- NOTE | 2018-02-02 08:50 | NURSING ---
Pt desat mid 70s on 2L oxygen when up to BSC. Increased to 3L- took a few minutes to come up to high 80s/low 90s. Accessory muscle use noted i.e. pursed lip breathing/retractions. HR 110s-120s as well.
--- NOTE | 2018-02-02 09:18 | PN_ITS ---
<Amirah Santillan - Last Filed: 02/02/18 09:38> Patient Problems: Active and Suspected Problems (Last Reviewed 12/03/17 @ 10:29 by Aj Gray MD ) CAP (community acquired pneumonia) (Acute) COPD with acute exacerbation (Acute) Osteoporosis (Suspected) Hypomagnesemia (Acute) Subjective: Patient seen and examined. Tolerated bipap overnight. Now on 3L NC. Patient states she had intermittent episodes of shortness of breath overnight. Currently denies shortness of breath. Denies further cough. Denies fever, chills. Complains of feeling tired and weak. - Physical Exam General: Alert, Oriented x3, Cooperative HEENT: Atraumatic, PERRLA, EOMI, Normocephalic Oral: Dry Mucosa Neck: Supple, No JVD, Negative Carotid Bruits Lungs: Diminished, Wheezes Cardiovascular: Regular rate, Regular Rhythm, Normal S1, Normal S2, No murmurs Abdomen: Bowel Sounds Present, Soft, Non Tender, Non-Distended Extremities: No clubbing, No cyanosis, No edema, Capillary Refill Less than 3 Seconds Skin: No rashes, No breakdown Musculoskeletal: No Tenderness to Palpation of Joints or Extremities Neurological: Cranial nerves II-XII grossly intact, Neuro grossly intact Psych/Mental Status: Normal Affect, Appropriate Vital Signs Temp Pulse Resp BP Pulse Ox 97.8 F 108 H 17 127/83 H 95 02/02/18 07:44 02/02/18 09:00 02/02/18 09:00 02/02/18 09:00 02/02/18 09:00 Oxygen Flow Rate (L/min) 3 Oxygen Delivery Method Nasal Cannula Weight: 55.7 kg Body Mass Index (BMI) 21.1 Intake and Output for Last 24 Hours 01/31/18 02/01/18 02/02/18 23:59 23:59 23:59 Intake Total 700 / 700 400 / 400 500 / 500 Output Total 275 / 275 850 / 850 Balance 700 / 700 125 / 125 -350 / -350 Microbiology Past 72 Hours 01/29/18 01:05 Respiratory Panel (PCR) - Final Mucosa - Nasopharyngeal Human [facility] Laboratory Tests Past 24 Hrs 02/01/18 02/02/18 02/02/18 13:00 04:10 04:10 WBC 6.2 RBC 4.46 Hgb 12.6 Hct 41.8 MCV 93.7 MCH 28.3 MCHC 30.1 L RDW 15.4 H RDW Differential 52.5 H Plt Count 343 MPV 9.3 Immature Gran % (Auto) 0.800 Neut % (Auto) 90.8 H Lymph % (Auto) 6.3 L [place] % (Auto) 1.9 Eos % (Auto) 0.0 Baso % (Auto) 0.2 Absolute Neuts (auto) 5.7 Absolute Lymphs (auto) 0.39 L Total Counted Not Reportable Differential Comment SCANNED Platelet Estimate SLT INC Sodium 140 Potassium 5.0 Chloride 96 L Carbon Dioxide 40.0 H Anion Gap 4 L BUN 23 H Creatinine 0.50 L Estim Creat Clear Calc 42.08 Est GFR (MDRD) Af Amer 152 Est GFR (MDRD) Non-Af 126 BUN/Creatinine Ratio 45.5 H Glucose 142 H Calcium 10.3 H MRSA (PCR) Negative Medical Necessity - Tobacco Use Smoking Status: Former smoker Tobacco Use: Non-smoker Assessment/Plan Active and Suspected Problems (Last Reviewed 12/03/17 @ 10:29 by Aj Gray MD ) CAP (community acquired pneumonia) (Acute) COPD with acute exacerbation (Acute) Osteoporosis (Suspected) Hypomagnesemia (Acute) Patient is a 77-year-old female admitted 01/26/18 due to shortness of breath. She has a past medical history of COPD, chronic hypoxic respiratory failure, hypothyroidism, anxiety, depression, suspected osteoporosis, multiple thoracic vertebral compression fractures, history of malnutrition, paroxysmal atrial fibrillation, restless leg syndrome, allergic rhinitis. 1. Right upper lobe community-acquired pneumonia-chest x-ray on admission showed right upper lobe airspace disease possibly representing pneumonia. Now afebrile. No leukocytosis. IV azithromycin course completed. Further antibiotics discontinued. Sputum culture showed mixed gregory. Continue supplemental oxygen to maintain O2 at or above 90%. Albuterol DuoNeb aerosols. 2. Acute COPD exacerbation secondary to human metapneumovirus on end stage COPD with chronic hypoxic respiratory failure-Continue IV solumedrol. Albuterol and DuoNeb aerosols. Patient follows with Dr. King. States she is currently undergoing evaluation for CPAP device. Patient chronically wears 3 L nasal cannula baseline. Negative for influenza. Respiratory panel positive for human metaphneumo virus. 3. Hypomagnesia-resolved. 4. Paroxysmal atrial fibrillation-Cardiology consulted. Episodes of increased shortness of breath seem to be correlated with episodes of A. fib with RVR. Beta-blockers discontinued. She was started on Cardizem CD 180 mg daily per cardiology with further adjustment as necessary. Continue to monitor. 5. Hypothyroidism-continue home Synthroid regimen. 6. Chronic iron deficiency anemia-at baseline, monitor CBC. 7. Anxiety, depression-continue home regimen of BuSpar, Zoloft. 8. Multiple thoracic vertebral compression fractures with suspected osteoporosis-continue Tylenol as needed for pain. Calcium/vitamin D supplementation. DVT prophylaxis-continue Xarelto. Discharge planning: TCU pending pre-cert and improvement in respiratory status, case management involved. This patient was seen by MAHAD Aranda under the supervision of Dr. Webster. <Catrachito Webster E - Last Filed: 02/02/18 13:37> - Physical Exam Vital Signs Temp Pulse Resp BP Pulse Ox 98.4 F 91 18 117/87 H 90 02/02/18 12:00 02/02/18 13:00 02/02/18 13:00 02/02/18 13:00 02/02/18 13:00 Oxygen Flow Rate (L/min) 2 Oxygen Delivery Method Nasal Cannula Weight: 122 lb 12.76 oz Body Mass Index (BMI) 21.1 Intake and Output for Last 24 Hours 01/31/18 02/01/18 02/02/18 23:59 23:59 23:59 Intake Total 700 / 700 400 / 400 500 / 500 Output Total 275 / 275 850 / 850 Balance 700 / 700 125 / 125 -350 / -350 Microbiology Past 72 Hours 01/29/18 01:05 Respiratory Panel (PCR) - Final Mucosa - Nasopharyngeal Human [place] Laboratory Tests Past 24 Hrs 02/01/18 02/02/18 02/02/18 13:00 04:10 04:10 WBC 6.2 RBC 4.46 Hgb 12.6 Hct 41.8 MCV 93.7 MCH 28.3 MCHC 30.1 L RDW 15.4 H RDW Differential 52.5 H Plt Count 343 MPV 9.3 Immature Gran % (Auto) 0.800 Neut % (Auto) 90.8 H Lymph % (Auto) 6.3 L [place] % (Auto) 1.9 Eos % (Auto) 0.0 Baso % (Auto) 0.2 Absolute Neuts (auto) 5.7 Absolute Lymphs (auto) 0.39 L Total Counted Not Reportable Differential Comment SCANNED Platelet Estimate SLT INC Sodium 140 Potassium 5.0 Chloride 96 L Carbon Dioxide 40.0 H Anion Gap 4 L BUN 23 H Creatinine 0.50 L Estim Creat Clear Calc 42.08 Est GFR (MDRD) Af Amer 152 Est GFR (MDRD) Non-Af 126 BUN/Creatinine Ratio 45.5 H Glucose 142 H Calcium 10.3 H MRSA (PCR) Negative Assessment/Plan Hospitalist note: I am seeing this patient in conjunction with Amirah Santillan. I independently seen and examined the patient. Progress note above reviewed and I agree with above treatment plan. Overnight, patient went into A. fib with RVR, heart rate was up to 140s. She was started on IV Cardizem drip. This morning, she has been in sinus rhythm, rate is stabilized. Today, she reported minimal improvement of her shortness of breath. She tolerated BiPAP overnight. Pulse ox is maintained on 2-3 L, rate is down to 80s and blood pressure stable. She is afebrile. Physical examination: General: Alert, Oriented x3, Cooperative, - - Moderately short of breath on BiPAP. HEENT: Atraumatic, PERRLA, EOMI Oral: Moist Mucosa, No Gingival or Mucosal Lesions/ Ulcerations Neck: Supple, No JVD, Negative Carotid Bruits, Trachea Midline, Thyroid Normal Size and Texture Lungs: Diminished, Rales, Rhonchi, Short of Breath, Tachypneic, - - Decreased breath sounds bilateral, more at the bases. Cardiovascular: Regular rate, Regular Rhythm, Normal S1, Normal S2, PMI Normal. Abdomen: Bowel Sounds Present, Soft, Non Tender, Non-Distended, No Hepato- splenomegaly Extremities: No clubbing, No cyanosis, No edema Skin: No rashes, No breakdown Lymphatic: No Cervical, Supraclavicular, or Inguinal Adenopathy Neurological: Cranial nerves II-XII grossly intact, Motor Exam 5/5 strength throughout Psych/Mental Status: Normal Affect, Appropriate, Alert and oriented to time, place, person, mood and affect. Assessment and plan: This is a 77 years old female patient admitted because of worsening shortness of breath, found to have right upper lobe community acquired pneumonia and acute COPD exacerbation. #1 right upper lobe community-acquired pneumonia: Completed 5 days of IV antibiotic therapy. She has been afebrile, no leukocytosis. She has been tolerating BiPAP overnight, she is down to 3 L of oxygen this morning. Overnight, she went into A. fib with RVR, was on IV Cardizem drip. She is back to sinus rhythm, rate is controlled. She is off antibiotics. #2 acute COPD exacerbation/acute on chronic hypercapnic respiratory failure: Treated by human Metapneumo virus. she is on IV steroids and bronchodilators. She has been tolerating BiPAP overnight, plan as above. #3 A. fib with RVR: Last night, she went into A. fib with RVR which could be due to DuoNeb and albuterol. She was on IV Cardizem drip, discontinued this morning. At this time, she is sinus rhythm, rate is under control. Metoprolol discontinued, started on Cardizem and continued on Xarelto. #4 hypomagnesemia: Magnesium is replaced and corrected. #5 COPD/chronic respiratory failure: She has severe COPD/emphysema and she has been on home oxygen at 3 L at home. Plan as above. #6 hypothyroidism: Continue levothyroxine. #7 chronic anemia: Normocytic anemia, baseline hemoglobin around 10-11 g/dL. today's hemoglobin is 12.6 g/dL, stable. #8 chronic back pain/vertebral compression fractures: She is on Tylenol, pain is controlled. #9 anxiety/depression: Continue trazodone and Zoloft as well as BuSpar. #10 DVT prophylaxis: Continue Xarelto. This note was generated with [employer] dictation software. It may contain incorrect words, spelling, and punctuation that were not noted in checking the note before signing. Code Visit Inpatient E&M: 84358 Subs Hosp L2
[2018-02-02] MEDS: Magnesium Oxide 400 MG Tablet PO (09:53)
[2018-02-02] MEDS: Famotidine 20 MG Tablet PO (09:53)
[2018-02-02] MEDS: Sertraline 50 MG Tablet PO (09:53)
[2018-02-02] MEDS: dilTIAZem CD 180 MG Capsule PO (09:53)
[2018-02-02] MEDS: Polyethylene Glycol 3350 17 GM PACKET PO (09:54)
--- NOTE | 2018-02-02 10:01 | CASEMGMT ---
Addendum entered by Brittany Harris 02/02/18 14:09: SW did get a message back from Fani at [facility] that they will still consider pt, and when she is closer to being ready for discharge, she asked we refax the clinical information. SW spoke w/CM Rachel Arce, she spoke w/Dr. King as family and pt want to speak w/him. He is out of town but can be here in the hospital on Wednesday between 1pm-2pm. SW met w/pt in room, let her know that Dr. King can meet w/her and her family on Wednesday between 1pm-2pm. SW asked pt if she would like SW to call her daughter and let her know, she states she would. SW called daughter , let her know that Dr. King can be here on Wednesday between 1pm-2pm if she and pt's want to be here, daughter will let pt's know. We also briefly discussed discharge plan, daughter states their first choice is actually TCU then [facility]. states if a bed opens up in TCU they would prefer this, SW explained will put pt's name on the list. SW called [facility], put pt's name on the TCU list, will wait to see if there is a bed available when pt is ready for discharge. SW will continue to follow. MARVIN Bolanos, MANAGER STARS Original Note: SW participated in ICU rounds this morning, also spoke w/physicians regarding pt. Pt was made a DNRCC-A, it is uncertain about hospice at this time. SW called [facility], message left regarding pt, letting them know as of now plan will continue to be for W. SW will wait to hear back from [facility], will continue to follow. MARVIN Bolanos, MANAGER STARS
--- NOTE | 2018-02-02 15:41 | CASEMGMT ---
Dr. King updated on change in pt status and states that he will meet with pt/family on Wednesday between 1-2pm. Thais SW aware and states she will notify pt/family. Matias DAVENPORT CM
[2018-02-02] MEDS: Rivaroxaban 20 MG Tablet PO (16:51)
[2018-02-02] MEDS: Montelukast 10 MG Tablet PO (16:51)
[2018-02-02] MEDS: traZODone 50 MG Tablet 100 MG PO (21:15)
[2018-02-03] VITALS (26 sets, daily range): BP systolic 87–154; BP diastolic 41–70; PULSE 67–122; RESP 12–24; TEMP 36.9–37.1; O2SAT 91–99
[2018-02-03] MEDS: Alendronate Sodium 70 MG Tablet PO (06:09)
[2018-02-03] MEDS: busPIRone 5 MG Tablet PO ×3 (06:09→21:45)
[2018-02-03] MEDS: Levothyroxine 50 MCG Tablet PO (06:09)
--- NOTE | 2018-02-03 06:27 | PN_ITS ---
Subjective: Patient did well over the last 24 hours. Patient was compliant with BiPAP therapy overnight. Patient remains in A. fib/flutter, but no RVR episodes were noted overnight. Patient denies any pain at this time. General: Alert, Oriented x3, Cooperative, No apparent distress, - - Speaking in full sentences. Good BiPAP synchrony noted. HEENT: Atraumatic, PERRLA, EOMI, Normocephalic, - - No scleral icterus or injection noted. Oral: No Gingival or Mucosal Lesions/ Ulcerations, Dry Mucosa Neck: Supple, No JVD, No Nodes, Trachea Midline Lungs: No rhonchi, No wheeze, No rales, Diminished, - - Symmetric expansion. No dullness to percussion. Cardiovascular: Normal S1, Normal S2, Irregular Rate, Murmur, No rub noted, No Gallop Abdomen: Bowel Sounds Present, Soft, Non Tender, Non-Distended Extremities: No clubbing, No cyanosis, No edema, Capillary Refill Less than 3 Seconds Skin: - - No significant change compared to previous Musculoskeletal: No Tenderness to Palpation of Joints or Extremities, No Muscle Wasting Lymphatic: No Cervical, Supraclavicular, or Inguinal Adenopathy Neurological: Cranial nerves II-XII grossly intact, Neuro grossly intact, Motor Exam 5/5 strength throughout Psych/Mental Status: Alert and oriented to time, place, person, mood and affect Vital Signs Temp Pulse Resp BP Pulse Ox 36.9 C 78 16 100/68 94 02/03/18 04:00 02/03/18 06:00 02/03/18 06:00 02/03/18 06:00 02/03/18 06:00 Oxygen Flow Rate (L/min) 3 Oxygen Delivery Method Nasal Cannula Weight: 55.7 kg Body Mass Index (BMI) 21.1 Intake and Output for Last 24 Hours 02/01/18 02/02/18 02/03/18 23:59 23:59 23:59 Intake Total 400 / 400 500 / 500 340 / 340 Output Total 275 / 275 1300 / 1300 300 / 300 Balance 125 / 125 -800 / -800 40 / 40 Labs (Last 48 Hours) 02/01/18 02/01/18 02/02/18 08:03 13:00 04:10 WBC 6.2 RBC 4.46 Hgb 12.6 Hct 41.8 MCV 93.7 MCH 28.3 MCHC 30.1 L RDW 15.4 H RDW Differential 52.5 H Plt Count 343 MPV 9.3 Immature Gran % (Auto) 0.800 Neut % (Auto) 90.8 H Lymph % (Auto) 6.3 L [place] % (Auto) 1.9 Eos % (Auto) 0.0 Baso % (Auto) 0.2 Absolute Neuts (auto) 5.7 Absolute Lymphs (auto) 0.39 L Total Counted Not Reportable Differential Comment SCANNED Platelet Estimate SLT INC Specimen Type ART Sample Site L Radial pH 7.40 Bicarbonate Actual 44.3 H POC Total CO2 47 Base Excess 19 H O2 Saturation 94 L ABG pCO2 72.2 H* ABG pO2 76 Rigo Test POS O2 Delivery Device Nasal Can Liter Flow 5.0 Blood Gas Notified Whom HOSP Blood Gas Notified Time 755 Sodium Potassium Chloride Carbon Dioxide Anion Gap BUN Creatinine Estim Creat Clear Calc Est GFR (MDRD) Af Amer Est GFR (MDRD) Non-Af BUN/Creatinine Ratio Glucose Calcium MRSA (PCR) Negative 02/02/18 04:10 WBC RBC Hgb Hct MCV MCH MCHC RDW RDW Differential Plt Count MPV Immature Gran % (Auto) Neut % (Auto) Lymph % (Auto) [place] % (Auto) Eos % (Auto) Baso % (Auto) Absolute Neuts (auto) Absolute Lymphs (auto) Total Counted Differential Comment Platelet Estimate Specimen Type Sample Site pH Bicarbonate Actual POC Total CO2 Base Excess O2 Saturation ABG pCO2 ABG pO2 Rigo Test O2 Delivery Device Liter Flow Blood Gas Notified Whom Blood Gas Notified Time Sodium 140 Potassium 5.0 Chloride 96 L Carbon Dioxide 40.0 H Anion Gap 4 L BUN 23 H Creatinine 0.50 L Estim Creat Clear Calc 42.08 Est GFR (MDRD) Af Amer 152 Est GFR (MDRD) Non-Af 126 BUN/Creatinine Ratio 45.5 H Glucose 142 H Calcium 10.3 H MRSA (PCR) Medical Necessity - Tobacco Use Smoking Status: Former smoker Tobacco Use: Non-smoker Assessment/Plan Active and Suspected Problems (Last Reviewed 12/03/17 @ 10:29 by Aj Gray MD ) CAP (community acquired pneumonia) (Acute) COPD with acute exacerbation (Acute) Osteoporosis (Suspected) Hypomagnesemia (Acute) RECOMMENDATIONS: 1. Wean Solu-Medrol, probable transition to prednisone therapy tomorrow 2. Decrease bronchodilator frequency 3. BiPAP breaks as tolerated during the day 4. Wean oxygen as tolerated 5. CODE STATUS to DNR Comfort Care arrest without intubation 6. Continue with anticoagulation for now 7. Okay to leave the intensive care unit from my perspective IMPRESSIONS: 1. Acute on chronic combined respiratory failure secondary to human Metapneumovirus Patient appears to be stabilizing from a cardiopulmonary perspective. Patient did not have any RVR episodes overnight, but remains in A. fib/flutter. Cardiology is following. Continue to wean oxygen as tolerated. Would continue with empiric BiPAP therapy overnight given CO2 retention. Low clinical suspicion for ongoing viral exacerbation is the predominant feature. We will continue to wean Solu-Medrol. Possibly transition to prednisone therapy tomorrow. 2. Personal history of COPD with unknown severity Patient seen by Dr. King as an outpatient. Unknown last pulmonary function test. Patient was on appropriate inhaler therapy, but it is unclear on delivery given patient's acute bronchospasm. Patient will be continued on bronchodilators and IV steroids for now. 3. Atrial fibrillation with paroxysmal RVR and preserved ejection fraction congestive heart failure Patient's rate appears to be well-controlled at this time on Cardizem therapy. Patient does take anticoagulation at baseline. It appears that acute decompensation of respiratory status secondary to flash pulmonary edema secondary to A. fib with RVR and diastolic dysfunction. Cardiology is currently following. Defer to them on initiation of antiarrhythmic. 4. Advanced age/hypothyroidism/anxiety/deconditioning Complicates care, management, recovery and prognosis. Patient with recent similiar type of presentation in August 2017. Okay to continue with baseline medications. Code Visit Inpatient E&M: [id number] [facility] Hosp L3
[2018-02-03] MEDS: Ipratropium/Albuterol Sulfate 3 ML AMPUL.NEB INHALATION ×3 (06:33→23:16)
[2018-02-03] MEDS: Calcium Carb/Vitamin D 1 TABLET Tablet PO ×3 (07:53→16:07)
[2018-02-03] MEDS: Iron Polysaccharide Complex 150 MG CAPSULE PO (07:56)
--- NOTE | 2018-02-03 10:13 | PCM.PN.CARD ---
Subjectve: Patient feels much better today, heart rate still above 100 but improved with Cardizem. Shortness of breath markedly improved. Objective: Vital Signs Temp Pulse Resp BP Pulse Ox 98.5 F 110 H 21 H 126/67 H 94 02/03/18 04:00 02/03/18 09:00 02/03/18 09:00 02/03/18 09:00 02/03/18 09:00 Oxygen Flow Rate (L/min) 3 Oxygen Delivery Method Nasal Cannula Weight: 122 lb 12.76 oz Body Mass Index (BMI) 21.1 Intake and Output for Last 24 Hours 02/01/18 02/02/18 02/03/18 23:59 23:59 23:59 Intake Total 400 / 400 500 / 500 340 / 340 Output Total 275 / 275 1300 / 1300 850 / 850 Balance 125 / 125 -800 / -800 -510 / -510 General: Awake, Alert, Oriented x 3 HEENT: PERRL, EOMI, Sclera Non Icteric Neck: Supple, Good ROM, No Lymph Node Enlargement Lungs: Clear to auscultation Cardiovascular: Irregular Rhythm, Normal S1, Normal S2, No Murmurs, No Rubs, No Gallops Vascular: No Carotid Bruits, Normal Femoral Pulses, Normal Radial Pulses, Normal Dorsalis Pedal Pulse, Normal Posterior Tibial Pulses Abdomen: Bowel Sounds Present, Soft, Non Tender, No HSM, No Organomegaly Extremities: No Cyanosis, No Clubbing, No edema Neurological: No Focal Motor or Sensory Deficit Rhythm: EKG: ECHO: Stress Test: Cardiac Cath: PCI: CT Surgery: Holter monitor: EPS: PPM: CXR: Chest CT Scan: Medical Necessity - Tobacco Use Smoking Status: Former smoker Tobacco Use: Non-smoker Assessment/Plan 1. Paroxysmal atrial fibrillation: The patient has had several admissions with atrial fibrillation/atrial flutter with rapid ventricular response which appears to respond to Cardizem. It may be that her beta-ravindra therapy may be exacerbating her COPD, or at the very least not helping. Patient has improved heart rate with p.o. Cardizem but still has episodes greater than 100. Recommend increasing her Cardizem to 240 mg this morning. Continue Xarelto. Given the patient's long smoking history, we may want to consider obtaining a non-walking nuclear stress test when she has recovered from her COPD exacerbation given her long smoking history and frequent readmissions. 2. Thank you very much for the opportunity to precipitate the cardiac care of your patient. Code Visit Inpatient E&M: 60809 Subs Hosp L2
[2018-02-03] MEDS: Famotidine 20 MG Tablet PO (10:58)
[2018-02-03] MEDS: Magnesium Oxide 400 MG Tablet PO (10:58)
[2018-02-03] MEDS: Polyethylene Glycol 3350 17 GM PACKET PO (10:58)
[2018-02-03] MEDS: Sertraline 50 MG Tablet PO (10:58)
[2018-02-03] MEDS: 0.9% NaCl Peripheral Flush Adult/Peds IV ×3 (11:08→21:47)
[2018-02-03] MEDS: dilTIAZem CD 240 MG Capsule PO (11:10)
--- NOTE | 2018-02-03 11:45 | CASEMGMT ---
Addendum entered by Brittany Harris 02/03/18 12:31: SW spoke w/pt, let her know TCU will have a bed for her now and precert was started. Pt in agreement w/this plan. SW also spoke w/daughter , let her know TCU now has a bed and they will start precert. states understanding and is also in agreement. SW will continue to follow. MARVIN Bolanos, MANAGER E LEARNING Original Note: SW spoke w/Brittany in TCU, they will have a bed for pt and she will start precert. SW will let pt and daughter know. MARVIN Bolanos, MANAGER E LEARNING
--- NOTE | 2018-02-03 12:46 | PCM.PROGNOTE ---
<Segundo Tirado - Last Filed: 02/03/18 12:46> Patient Problems: Active and Suspected Problems (Last Reviewed 12/03/17 @ 10:29 by Aj Gray MD) CAP (community acquired pneumonia) (Acute) COPD with acute exacerbation (Acute) Osteoporosis (Suspected) Hypomagnesemia (Acute) Subjective: Pt has intermittent palpitations. She has overall improvement in her SOB. She has an occasional dry cough and feels she cannot clear mucus out of her lungs. She has no fevers or chills overnight. Still overall feels weak. She is comfortable on her home O2 level currently. She will be transferred out of the ICU tp PCU today. - Physical Exam General: Alert, Oriented x3, Cooperative HEENT: Atraumatic, PERRLA, EOMI, Normocephalic Neck: Supple, No JVD, Negative Carotid Bruits Lungs: Diminished - severely Cardiovascular: Regular rate, No murmurs Abdomen: Bowel Sounds Present, Soft, Non Tender Extremities: No edema, Capillary Refill Less than 3 Seconds Skin: No rashes, No breakdown Musculoskeletal: No Tenderness to Palpation of Joints or Extremities Neurological: Cranial nerves II-XII grossly intact Psych/Mental Status: Normal Affect, Appropriate, Alert and oriented to time, place, person, mood and affect Vital Signs Temp Pulse Resp BP Pulse Ox 98.4 F 118 H 16 131/57 H 96 02/03/18 12:00 02/03/18 12:09 02/03/18 12:00 02/03/18 12:00 02/03/18 12:00 Oxygen Flow Rate (L/min) 3 Oxygen Delivery Method Nasal Cannula Weight: 55.7 kg Body Mass Index (BMI) 21.1 Intake and Output for Last 24 Hours 02/01/18 02/02/18 02/03/18 23:59 23:59 23:59 Intake Total 400 / 400 500 / 500 740 / 740 Output Total 275 / 275 1300 / 1300 950 / 950 Balance 125 / 125 -800 / -800 -210 / -210 Microbiology Past 72 Hours 01/29/18 01:05 Respiratory Panel (PCR) - Final Mucosa - Nasopharyngeal Human [place] Medical Necessity - Tobacco Use Smoking Status: Former smoker Tobacco Use: Non-smoker Assessment/Plan Active and Suspected Problems (Last Reviewed 12/03/17 @ 10:29 by Aj Gray MD) CAP (community acquired pneumonia) (Acute) COPD with acute exacerbation (Acute) Osteoporosis (Suspected) Hypomagnesemia (Acute) 1. Acute on chronic hypoxic hypercapneic respiratory failure 2/2 human metapneumovirus and BL CAP pna presumed gram positive - continue bipap at night. Continue solumedrol. Azithromycin complete. Continue aerosols. No fever/leukocytosis. Flu neg. Sputum with Mixed gregory/molina (she is on ICS at home). On home O2 levels. Pulmonary and Cardio following. 2. Paroxysmal AF with RVR - cardiology following. Increase Cardizem, continue xarelto. Consider Stress test when breathing improved. Check TSH. Trop neg. 3. COPD and pulmonary fibrosis - as above. F/u with Dr. Carney as outpatient. 4. Debility and compression fractures - PTOT. Calcium/VitD repletion. Presumed osteoporosis. 5. Hypothyroid - continue synthroid and check TSH 6. Anx/Dep - home meds. 7. Chronic Iron def anemia - trend. DVT ppx: Ashley[facility] GM planning: Tx ICU to PCU. to TCU when stable. This patient was seen by Segundo Tirado PA-C under the supervision of Doctor Darin. <Catrachito Webster E - Last Filed: 02/03/18 13:37> - Physical Exam Vital Signs Temp Pulse Resp BP Pulse Ox 98.4 F 118 H 16 131/57 H 96 02/03/18 12:00 02/03/18 12:09 02/03/18 12:00 02/03/18 12:00 02/03/18 12:00 Oxygen Flow Rate (L/min) 3 Oxygen Delivery Method Nasal Cannula Weight: 122 lb 12.76 oz Body Mass Index (BMI) 21.1 Intake and Output for Last 24 Hours 02/01/18 02/02/18 02/03/18 23:59 23:59 23:59 Intake Total 400 / 400 500 / 500 740 / 740 Output Total 275 / 275 1300 / 1300 950 / 950 Balance 125 / 125 -800 / -800 -210 / -210 Microbiology Past 72 Hours 01/29/18 01:05 Respiratory Panel (PCR) - Final Mucosa - Nasopharyngeal Human [place] Laboratory Tests Past 24 Hrs 02/02/18 04:10 TSH 0.09 L Assessment/Plan Hospitalist note: I am seeing this patient in conjunction with Segundo Tirado. I independently seen and examined the patient. Progress note above reviewed and I agree with above treatment plan. She reported no improvement in her symptoms but still gets short of breath easily upon ambulation. When I was in the room, patient stood up and heart rate went up to 130s. Her other vital signs remained stable and she remains on 3 L of oxygen. Physical examination: General: Alert, Oriented x3, Cooperative, - - Moderately short of breath on BiPAP. HEENT: Atraumatic, PERRLA, EOMI Oral: Moist Mucosa, No Gingival or Mucosal Lesions/ Ulcerations Neck: Supple, No JVD, Negative Carotid Bruits, Trachea Midline, Thyroid Normal Size and Texture Lungs: Diminished, Rales, Rhonchi, Short of Breath, Tachypneic, - - Decreased breath sounds bilateral, more at the bases. Cardiovascular: Regular rate, Regular Rhythm, Normal S1, Normal S2, PMI Normal. Abdomen: Bowel Sounds Present, Soft, Non Tender, Non-Distended, No Hepato-splenomegaly Extremities: No clubbing, No cyanosis, No edema Skin: No rashes, No breakdown Lymphatic: No Cervical, Supraclavicular, or Inguinal Adenopathy Neurological: Cranial nerves II-XII grossly intact, Motor Exam 5/5 strength throughout Psych/Mental Status: Normal Affect, Appropriate, Alert and oriented to time, place, person, mood and affect. Assessment and plan: This is a 77 years old female patient admitted because of worsening shortness of breath, found to have right upper lobe community acquired pneumonia and acute COPD exacerbation. #1 right upper lobe community-acquired pneumonia: Completed 5 days of IV antibiotic therapy. She has been afebrile, no leukocytosis. She has been tolerating BiPAP overnight, she is down to 3 L of oxygen this morning. Plan: Transfer to PCU. #2 acute COPD exacerbation/acute on chronic hypercapnic respiratory failure: she is on IV steroids and bronchodilators. She has been tolerating BiPAP overnight, plan as above. #3 A. fib with RVR: At rest, heart rate has been under control but when she ambulates, heart rate was up to 120s. Cardizem dose increased to 240 mg p.o. daily. #4 hypomagnesemia: Magnesium is replaced and corrected. #5 COPD/chronic respiratory failure: She has severe COPD/emphysema and she has been on home oxygen at 3 L at home. Plan as above. #6 hypothyroidism: Continue levothyroxine. #7 chronic anemia: Normocytic anemia, baseline hemoglobin around 10-11 g/dL. yesterday's hemoglobin is 12.6 g/dL, stable. #8 chronic back pain/vertebral compression fractures: She is on Tylenol, pain is controlled. #9 anxiety/depression: Continue trazodone and Zoloft as well as BuSpar. #10 DVT prophylaxis: Continue Xarelto. This note was generated with [employer] dictation software. It may contain incorrect words, spelling, and punctuation that were not noted in checking the note before signing. Code Visit Inpatient E&M: 86922 Subs Hosp L2
[2018-02-03 13:32] LABS: Thyroid Stim Hormone (TSH) 0.09 uIU/mL (0.358-3.74)
[2018-02-03] MEDS: Rivaroxaban 20 MG Tablet PO (16:07)
[2018-02-03] MEDS: Montelukast 10 MG Tablet PO (16:10)
[2018-02-03] MEDS: traZODone 50 MG Tablet 100 MG PO (23:22)
[2018-02-04] VITALS (12 sets, daily range): BP systolic 110–146; BP diastolic 53–60; PULSE 70–141; RESP 12–20; TEMP 36.4–36.6; O2SAT 95–99
[2018-02-04 06:07] LABS: Anion Gap 4 (5-15); BUN 20 mg/dL (7-18); BUN/Creat Ratio 44.4 RATIO (10-20); Calcium,Total 9.8 mg/dL (8.5-10.1); Chloride 100 mmol/L (98-107); Creatinine, Serum 0.45 mg/dL (0.55-1.02); EST Glomerular Filtration Rate 144 mL/min (>60); Est Glom Filt Rate - Afr Amer 174 mL/min (>60); Estimated Creatinine Clearance 43.75 ml/min; Glucose 147 mg/dL (74-106); Potassium 4.8 mmol/L (3.5-5.1); Sodium Level 141 mmol/L (136-145)
[2018-02-04] MEDS: Levothyroxine 50 MCG Tablet PO (06:41)
[2018-02-04] MEDS: busPIRone 5 MG Tablet PO ×2 (06:41→13:15)
[2018-02-04] MEDS: Ipratropium/Albuterol Sulfate 3 ML AMPUL.NEB INHALATION ×2 (07:00→12:47)
[2018-02-04] MEDS: Iron Polysaccharide Complex 150 MG CAPSULE PO (08:55)
[2018-02-04] MEDS: Famotidine 20 MG Tablet PO (08:55)
[2018-02-04] MEDS: Sertraline 50 MG Tablet PO (08:55)
[2018-02-04] MEDS: dilTIAZem CD 240 MG Capsule PO (08:55)
[2018-02-04] MEDS: Magnesium Oxide 400 MG Tablet PO (08:55)
[2018-02-04] MEDS: Calcium Carb/Vitamin D 1 TABLET Tablet PO ×3 (08:56→17:46)
[2018-02-04] MEDS: Polyethylene Glycol 3350 17 GM PACKET PO ×2 (08:56→08:57)
--- NOTE | 2018-02-04 10:16 | PCM.PN.INT ---
Subjective: Patient transferred out of the intensive care unit yesterday. Patient reports subjective improvement compared to yesterday, but still has significant dyspnea with any exertion. Review of telemetry shows elevated peak heart rates the correlate with patient movement. Patient continues to have a periodic nonproductive cough. Patient did comply with BiPAP overnight. General: Alert, Oriented x3, Cooperative, No apparent distress, - - Conversational dyspnea noted, but patient was short of breath with attempting to get to the chair. HEENT: Atraumatic, PERRLA, EOMI, Normocephalic, - - No scleral icterus or injection noted. No breakdown of the bridge of the nose. Oral: Moist Mucosa, No Gingival or Mucosal Lesions/ Ulcerations Neck: Supple, No JVD, No Nodes, Trachea Midline Lungs: No rhonchi, No wheeze, No rales, Diminished Cardiovascular: Normal S1, Normal S2, Irregular Rate, Murmur, No rub noted, No Gallop Abdomen: Bowel Sounds Present, Soft, Non Tender, Non-Distended Extremities: No cyanosis, No edema, Capillary Refill Less than 3 Seconds, Clubbing Skin: No rashes, No breakdown Musculoskeletal: No Tenderness to Palpation of Joints or Extremities, No Muscle Wasting Lymphatic: No Cervical, Supraclavicular, or Inguinal Adenopathy Neurological: Cranial nerves II-XII grossly intact, Neuro grossly intact, Motor Exam 5/5 strength throughout Psych/Mental Status: Alert and oriented to time, place, person, mood and affect Vital Signs Temp Pulse Resp BP Pulse Ox 36.6 C 93 18 125/60 H 99 02/04/18 09:00 02/04/18 09:00 02/04/18 09:00 02/04/18 09:00 02/04/18 09:00 Oxygen Flow Rate (L/min) 3 Oxygen Delivery Method Nasal Cannula Weight: 57.9 kg Body Mass Index (BMI) 21.1 Intake and Output for Last 24 Hours 02/02/18 02/03/18 02/04/18 23:59 23:59 23:59 Intake Total 500 / 500 1010 / 1010 Output Total 1300 / 1300 950 / 950 Balance -800 / -800 60 / 60 Labs (Last 48 Hours) 02/02/18 02/04/18 04:10 05:40 Sodium 141 Potassium 4.8 Chloride 100 Carbon Dioxide 37.0 H Anion Gap 4 L BUN 20 H Creatinine 0.45 L Estim Creat Clear Calc 43.75 Est GFR (MDRD) Af Amer 174 Est GFR (MDRD) Non-Af 144 BUN/Creatinine Ratio 44.4 H Glucose 147 H Calcium 9.8 TSH 0.09 L Medical Necessity - Tobacco Use Smoking Status: Former smoker Tobacco Use: Non-smoker Assessment/Plan Active and Suspected Problems (Last Reviewed 12/03/17 @ 10:29 by Aj Gray MD) CAP (community acquired pneumonia) (Acute) COPD with acute exacerbation (Acute) Osteoporosis (Suspected) Hypomagnesemia (Acute) RECOMMENDATIONS: 1. Prednisone therapy 2. Sinew bronchodilators at current frequency 3. BiPAP with sleep 4. Wean oxygen as tolerated 5. CODE STATUS to DNR Comfort Care arrest without intubation 6. Continue with anticoagulation for now 7. Will defer further care to Dr. King IMPRESSIONS: 1. Acute on chronic combined respiratory failure secondary to human Metapneumovirus Patient appears to be stabilizing from a cardiopulmonary perspective. Patient's rate control was increased yesterday. Patient still having episodes of RVR, but appears to be tolerating.. Cardiology is following. Continue to wean oxygen as tolerated. Would continue with empiric BiPAP therapy overnight given CO2 retention. Low clinical suspicion for ongoing viral exacerbation is the predominant feature. Transition to prednisone therapy. Addition care back to patient's primary color depositing machine tender, Dr. King. 2. Personal history of COPD with unknown severity Patient seen by Dr. King as an outpatient. Unknown last pulmonary function test. Tinea with bronchodilators. Prednisone can be weaned over the next 12-14 days from my perspective, but defer to primary color depositing machine tender. 3. Atrial fibrillation with paroxysmal RVR and preserved ejection fraction congestive heart failure Patient's rate appears to be well-controlled at this time on Cardizem therapy. Patient does take anticoagulation at baseline. It appears that acute decompensation of respiratory status secondary to flash pulmonary edema secondary to A. fib with RVR and diastolic dysfunction. Cardiology is currently following. Defer to them on initiation of antiarrhythmic. 4. Advanced age/hypothyroidism/anxiety/deconditioning Complicates care, management, recovery and prognosis. Patient with recent similiar type of presentation in August 2017. Okay to continue with baseline medications. Code Visit Inpatient E&M: [id number] [facility] Hosp L3
--- NOTE | 2018-02-04 10:23 | PN_ITS ---
Subjective: Patient transferred out of the intensive care unit yesterday. Patient reports subjective improvement compared to yesterday, but still has significant dyspnea with any exertion. Review of telemetry shows elevated peak heart rates the correlate with patient movement. Patient continues to have a periodic nonproductive cough. Patient did comply with BiPAP overnight. General: Alert, Oriented x3, Cooperative, No apparent distress, - - Conversational dyspnea noted, but patient was short of breath with attempting to get to the chair. HEENT: Atraumatic, PERRLA, EOMI, Normocephalic, - - No scleral icterus or injection noted. No breakdown of the bridge of the nose. Oral: Moist Mucosa, No Gingival or Mucosal Lesions/ Ulcerations Neck: Supple, No JVD, No Nodes, Trachea Midline Lungs: No rhonchi, No wheeze, No rales, Diminished Cardiovascular: Normal S1, Normal S2, Irregular Rate, Murmur, No rub noted, No Gallop Abdomen: Bowel Sounds Present, Soft, Non Tender, Non-Distended Extremities: No cyanosis, No edema, Capillary Refill Less than 3 Seconds, Clubbing Skin: No rashes, No breakdown Musculoskeletal: No Tenderness to Palpation of Joints or Extremities, No Muscle Wasting Lymphatic: No Cervical, Supraclavicular, or Inguinal Adenopathy Neurological: Cranial nerves II-XII grossly intact, Neuro grossly intact, Motor Exam 5/5 strength throughout Psych/Mental Status: Alert and oriented to time, place, person, mood and affect Vital Signs Temp Pulse Resp BP Pulse Ox 36.6 C 93 18 125/60 H 99 02/04/18 09:00 02/04/18 09:00 02/04/18 09:00 02/04/18 09:00 02/04/18 09:00 Oxygen Flow Rate (L/min) 3 Oxygen Delivery Method Nasal Cannula Weight: 57.9 kg Body Mass Index (BMI) 21.1 Intake and Output for Last 24 Hours 02/02/18 02/03/18 02/04/18 23:59 23:59 23:59 Intake Total 500 / 500 1010 / 1010 Output Total 1300 / 1300 950 / 950 Balance -800 / -800 60 / 60 Labs (Last 48 Hours) 02/02/18 02/04/18 04:10 05:40 Sodium 141 Potassium 4.8 Chloride 100 Carbon Dioxide 37.0 H Anion Gap 4 L BUN 20 H Creatinine 0.45 L Estim Creat Clear Calc 43.75 Est GFR (MDRD) Af Amer 174 Est GFR (MDRD) Non-Af 144 BUN/Creatinine Ratio 44.4 H Glucose 147 H Calcium 9.8 TSH 0.09 L Medical Necessity - Tobacco Use Smoking Status: Former smoker Tobacco Use: Non-smoker Assessment/Plan Active and Suspected Problems (Last Reviewed 12/03/17 @ 10:29 by Aj Gray MD ) CAP (community acquired pneumonia) (Acute) COPD with acute exacerbation (Acute) Osteoporosis (Suspected) Hypomagnesemia (Acute) RECOMMENDATIONS: 1. Prednisone therapy 2. Sinew bronchodilators at current frequency 3. BiPAP with sleep 4. Wean oxygen as tolerated 5. CODE STATUS to DNR Comfort Care arrest without intubation 6. Continue with anticoagulation for now 7. Will defer further care to Dr. King IMPRESSIONS: 1. Acute on chronic combined respiratory failure secondary to human Metapneumovirus Patient appears to be stabilizing from a cardiopulmonary perspective. Patient's rate control was increased yesterday. Patient still having episodes of RVR, but appears to be tolerating.. Cardiology is following. Continue to wean oxygen as tolerated. Would continue with empiric BiPAP therapy overnight given CO2 retention. Low clinical suspicion for ongoing viral exacerbation is the predominant feature. Transition to prednisone therapy. Addition care back to patient's primary animal surgeon, Dr. King. 2. Personal history of COPD with unknown severity Patient seen by Dr. King as an outpatient. Unknown last pulmonary function test. Tinea with bronchodilators. Prednisone can be weaned over the next 12-14 days from my perspective, but defer to primary animal surgeon. 3. Atrial fibrillation with paroxysmal RVR and preserved ejection fraction congestive heart failure Patient's rate appears to be well-controlled at this time on Cardizem therapy. Patient does take anticoagulation at baseline. It appears that acute decompensation of respiratory status secondary to flash pulmonary edema secondary to A. fib with RVR and diastolic dysfunction. Cardiology is currently following. Defer to them on initiation of antiarrhythmic. 4. Advanced age/hypothyroidism/anxiety/deconditioning Complicates care, management, recovery and prognosis. Patient with recent similiar type of presentation in August 2017. Okay to continue with baseline medications. Code Visit Inpatient E&M: [id number] [facility] Hosp L3
--- NOTE | 2018-02-04 11:44 | CASEMGMT ---
Addendum entered by Brittany Harris 02/04/18 13:42: SW spoke w/Dr. King, he met w/pt, pt is not yet ready for end of life care. Plan continues to be for pt to go to TCU, precert is still pending. MARVIN Bolanos, [employer] MACHINE OPERATOR Original Note: SW spoke w/Brittany in TCU, she states that Bella requested OT updates. She will keep this SW posted in regard to precert. MARVIN Bolanos,P[employer] MACHINE OPERATOR
--- NOTE | 2018-02-04 13:44 | PN_ITS ---
Patient Problems: Active and Suspected Problems (Last Reviewed 12/03/17 @ 10:29 by Aj Gray MD ) CAP (community acquired pneumonia) (Acute) COPD with acute exacerbation (Acute) Osteoporosis (Suspected) Hypomagnesemia (Acute) - Physical Exam General: Alert, Oriented x3, Cooperative HEENT: Atraumatic, PERRLA, EOMI, Normocephalic Neck: Supple, No JVD, Negative Carotid Bruits Lungs: - - Marked decrease in breath sounds, prolonged expiratory phase, no wheeze, poor chest expansion, some tachypnea no accessory muscle use Cardiovascular: Regular rate, No murmurs, - - Intermittent rapid heart rate Abdomen: Bowel Sounds Present, Soft, Non Tender Extremities: No edema, Capillary Refill Less than 3 Seconds Skin: No rashes, No breakdown Musculoskeletal: No Tenderness to Palpation of Joints or Extremities Neurological: Cranial nerves II-XII grossly intact Psych/Mental Status: Normal Affect, Appropriate Vital Signs Temp Pulse Resp BP Pulse Ox 97.9 F 85 16 125/60 H 99 02/04/18 09:00 02/04/18 12:47 02/04/18 12:47 02/04/18 09:00 02/04/18 09:00 Oxygen Flow Rate (L/min) 3 Oxygen Delivery Method Nasal Cannula Weight: 57.9 kg Body Mass Index (BMI) 21.1 Intake and Output for Last 24 Hours 02/02/18 02/03/18 02/04/18 23:59 23:59 23:59 Intake Total 500 / 500 1010 / 1010 600 / 600 Output Total 1300 / 1300 950 / 950 300 / 300 Balance -800 / -800 60 / 60 300 / 300 Laboratory Tests Past 24 Hrs 02/04/18 05:40 Sodium 141 Potassium 4.8 Chloride 100 Carbon Dioxide 37.0 H Anion Gap 4 L BUN 20 H Creatinine 0.45 L Estim Creat Clear Calc 43.75 Est GFR (MDRD) Af Amer 174 Est GFR (MDRD) Non-Af 144 BUN/Creatinine Ratio 44.4 H Glucose 147 H Calcium 9.8 Medical Necessity - Tobacco Use Smoking Status: Former smoker Tobacco Use: Non-smoker Assessment/Plan Active and Suspected Problems (Last Reviewed 12/03/17 @ 10:29 by Aj Gray MD ) CAP (community acquired pneumonia) (Acute) COPD with acute exacerbation (Acute) Osteoporosis (Suspected) Hypomagnesemia (Acute) Severe COPD with DLCO of 30% predicted in the last few months The patient's vital capacity is 60% predicted The patient is status post RVR, A. fib The patient is status post ICU with elevated CO2, chronic respiratory failure I agree with a slow prednisone taper over the next 7-10 days This patient would benefit from bilevel therapy, recommend supplemental O2 blended in, inspiratory pressure 14 expiratory pressure of 5 I agree with TCU discharge I agree with follow-up as an outpatient in 2-4 weeks Today we talked about comfort care, hospice Family is present today, her daughter I do recommend at this point continuation of DNR, the patient at this point is not a candidate for hospice, she has no interest Continue with albuterol, Daliresp, Brio 200, LAMA
--- NOTE | 2018-02-04 13:54 | CASEMGMT ---
LINDSAY received a call from Brittany in TCU and patient's case is being sent to medical review. SW notified patient and her daughter. They asked the options if patient is denied. LINDSAY told them we can set up home health. They asked about appealing the decision. LINDSAY told them that if the physician is willing he could do a peer to peer, but the decision most times does not change. LINDSAY told them LINDSAY will let them know as soon as SW hears anything. Await insurance for decision. TCU vs home with HH. Lillian DUBOIS STRUCTURAL IRON ERECTOR
--- NOTE | 2018-02-04 14:09 | PCM.PROGNOTE ---
<Segundo Tirado - Last Filed: 02/04/18 14:09> Patient Problems: Active and Suspected Problems (Last Reviewed 12/03/17 @ 10:29 by Aj Gray MD) CAP (community acquired pneumonia) (Acute) COPD with acute exacerbation (Acute) Osteoporosis (Suspected) Hypomagnesemia (Acute) Subjective: Patient resting comfortably in chair bedside. States she did use BiPAP overnight. States her breathing has improved, and that she overall feels better. No fevers or chills. Nonproductive cough. States she does not use BiPAP at home, wears 3 L/min overnight and in the morning her increases her to 5 to help her get going. She is waiting to discuss her case with her utility bill collector Dr. King who is coming in this afternoon. She is planning on going to custodial at discharge to TCU, however Tresa is still pending. - Physical Exam General: Alert, Oriented x3, Cooperative, - - frail HEENT: Atraumatic, PERRLA, EOMI, Normocephalic Neck: Supple, No JVD, Negative Carotid Bruits Lungs: Diminished Cardiovascular: Regular rate, No murmurs Abdomen: Bowel Sounds Present, Soft, Non Tender Extremities: No edema, Capillary Refill Less than 3 Seconds Skin: No rashes, No breakdown Musculoskeletal: No Tenderness to Palpation of Joints or Extremities Neurological: Cranial nerves II-XII grossly intact Psych/Mental Status: Normal Affect, Appropriate, Alert and oriented to time, place, person, mood and affect Vital Signs Temp Pulse Resp BP Pulse Ox 97.9 F 85 16 125/60 H 99 02/04/18 09:00 02/04/18 12:47 02/04/18 12:47 02/04/18 09:00 02/04/18 09:00 Oxygen Flow Rate (L/min) 3 Oxygen Delivery Method Nasal Cannula Weight: 57.9 kg Body Mass Index (BMI) 21.1 Intake and Output for Last 24 Hours 02/02/18 02/03/18 02/04/18 23:59 23:59 23:59 Intake Total 500 / 500 1010 / 1010 600 / 600 Output Total 1300 / 1300 950 / 950 300 / 300 Balance -800 / -800 60 / 60 300 / 300 Laboratory Tests Past 24 Hrs 02/04/18 05:40 Sodium 141 Potassium 4.8 Chloride 100 Carbon Dioxide 37.0 H Anion Gap 4 L BUN 20 H Creatinine 0.45 L Estim Creat Clear Calc 43.75 Est GFR (MDRD) Af Amer 174 Est GFR (MDRD) Non-Af 144 BUN/Creatinine Ratio 44.4 H Glucose 147 H Calcium 9.8 Medical Necessity - Tobacco Use Smoking Status: Former smoker Tobacco Use: Non-smoker Assessment/Plan Active and Suspected Problems (Last Reviewed 12/03/17 @ 10:29 by Aj Gray MD) CAP (community acquired pneumonia) (Acute) COPD with acute exacerbation (Acute) Osteoporosis (Suspected) Hypomagnesemia (Acute) 1. Acute on chronic hypoxic hypercapneic respiratory failure 2/2 human metapneumovirus and BL CAP pna presumed gram positive - continue bipap at night. Prednisone taper. Azithromycin complete. Continue aerosols. No fever/leukocytosis. Flu neg. Sputum with Mixed gregory/molina (she is on ICS at home, no mouth or throat pain, no thrush lesions on exam). On home O2 levels. Pulmonary and Cardio following. 2. Paroxysmal AF with RVR - rate stable. cardiology following. Increase Cardizem, continue xarelto. Consider Stress test when breathing improved. Check TSH. Trop neg. 3. COPD and pulmonary fibrosis - as above. F/u with Dr. Carney as outpatient. 4. Debility and compression fractures - PTOT. Calcium/VitD repletion. Presumed osteoporosis. 5. Hypothyroid - continue synthroid and check TSH 6. Anx/Dep - home meds. 7. Chronic Iron def anemia - stable. DVT ppx: Xarelto DC planning: Awaiting precert for SNF/TCU This patient was seen by Segundo Tirado PA-C under the supervision of Doctor Webster. <Catrachito Webster - Last Filed: 02/04/18 15:16> - Physical Exam Vital Signs Temp Pulse Resp BP Pulse Ox 97.9 F 85 16 125/60 H 99 02/04/18 09:00 02/04/18 12:47 02/04/18 12:47 02/04/18 09:00 02/04/18 09:00 Oxygen Flow Rate (L/min) 3 Oxygen Delivery Method Nasal Cannula Weight: 127 lb 10.362 oz Body Mass Index (BMI) 21.1 Intake and Output for Last 24 Hours 02/02/18 02/03/18 02/04/18 23:59 23:59 23:59 Intake Total 500 / 500 1010 / 1010 600 / 600 Output Total 1300 / 1300 950 / 950 300 / 300 Balance -800 / -800 60 / 60 300 / 300 Laboratory Tests Past 24 Hrs 02/04/18 05:40 Sodium 141 Potassium 4.8 Chloride 100 Carbon Dioxide 37.0 H Anion Gap 4 L BUN 20 H Creatinine 0.45 L Estim Creat Clear Calc 43.75 Est GFR (MDRD) Af Amer 174 Est GFR (MDRD) Non-Af 144 BUN/Creatinine Ratio 44.4 H Glucose 147 H Calcium 9.8 Assessment/Plan Hospitalist note: I am seeing this patient in conjunction with Segundo Tirado. I independently seen and examined the patient. Progress note above reviewed and I agree with above treatment plan. Patient remains stable, complaining of exertional shortness of breath but at rest, she is fine. Remains on 3 L of oxygen. Physical examination: General: Alert, Oriented x3, Cooperative, - - Moderately short of breath on BiPAP. HEENT: Atraumatic, PERRLA, EOMI Oral: Moist Mucosa, No Gingival or Mucosal Lesions/ Ulcerations Neck: Supple, No JVD, Negative Carotid Bruits, Trachea Midline, Thyroid Normal Size and Texture Lungs: Diminished, Rales, Rhonchi, Short of Breath, Tachypneic, - - Decreased breath sounds bilateral, more at the bases. Cardiovascular: Regular rate, Regular Rhythm, Normal S1, Normal S2, PMI Normal. Abdomen: Bowel Sounds Present, Soft, Non Tender, Non-Distended, No Hepato-splenomegaly Extremities: No clubbing, No cyanosis, No edema Skin: No rashes, No breakdown Lymphatic: No Cervical, Supraclavicular, or Inguinal Adenopathy Neurological: Cranial nerves II-XII grossly intact, Motor Exam 5/5 strength throughout Psych/Mental Status: Normal Affect, Appropriate, Alert and oriented to time, place, person, mood and affect. Assessment and plan: This is a 77 years old female patient admitted because of worsening shortness of breath, found to have right upper lobe community acquired pneumonia and acute COPD exacerbation. #1 right upper lobe community-acquired pneumonia: Completed 5 days of IV antibiotic therapy. She has been afebrile, no leukocytosis. She has been tolerating BiPAP overnight, she is down to 3 L of oxygen this morning. Plan: Awaiting insurance approval to be transferred to custodial facility. #2 acute COPD exacerbation/acute on chronic hypercapnic respiratory failure: she is on IV steroids and bronchodilators. She has been tolerating BiPAP overnight, plan as above. #3 A. fib with RVR: At rest, heart rate has been under control but when she ambulates, heart rate was up to 120s. Cardizem dose increased to 240 mg p.o. daily. #4 hypomagnesemia: Magnesium is replaced and corrected. #5 COPD/chronic respiratory failure: She has severe COPD/emphysema and she has been on home oxygen at 3 L at home. Plan as above. #6 hypothyroidism: Continue levothyroxine. #7 chronic anemia: Normocytic anemia, baseline hemoglobin around 10-11 g/dL. most recent hemoglobin is 12.6 g/dL, stable. #8 chronic back pain/vertebral compression fractures: She is on Tylenol, pain is controlled. #9 anxiety/depression: Continue trazodone and Zoloft as well as BuSpar. #10 DVT prophylaxis: Continue Xarelto. This note was generated with [employer] dictation software. It may contain incorrect words, spelling, and punctuation that were not noted in checking the note before signing. Code Visit Inpatient E&M: 52874 Subs Hosp L2
--- NOTE | 2018-02-04 14:12 | PN_ITS ---
<Segundo Tirado - Last Filed: 02/04/18 14:09> Patient Problems: Active and Suspected Problems (Last Reviewed 12/03/17 @ 10:29 by Aj Gray MD ) CAP (community acquired pneumonia) (Acute) COPD with acute exacerbation (Acute) Osteoporosis (Suspected) Hypomagnesemia (Acute) Subjective: Patient resting comfortably in chair bedside. States she did use BiPAP overnight. States her breathing has improved, and that she overall feels better. No fevers or chills. Nonproductive cough. States she does not use BiPAP at home, wears 3 L/min overnight and in the morning her increases her to 5 to help her get going. She is waiting to discuss her case with her director of leadership development Dr. King who is coming in this afternoon. She is planning on going to half-way at discharge to TCU, however Tresa is still pending. - Physical Exam General: Alert, Oriented x3, Cooperative, - - frail HEENT: Atraumatic, PERRLA, EOMI, Normocephalic Neck: Supple, No JVD, Negative Carotid Bruits Lungs: Diminished Cardiovascular: Regular rate, No murmurs Abdomen: Bowel Sounds Present, Soft, Non Tender Extremities: No edema, Capillary Refill Less than 3 Seconds Skin: No rashes, No breakdown Musculoskeletal: No Tenderness to Palpation of Joints or Extremities Neurological: Cranial nerves II-XII grossly intact Psych/Mental Status: Normal Affect, Appropriate, Alert and oriented to time, place, person, mood and affect Vital Signs Temp Pulse Resp BP Pulse Ox 97.9 F 85 16 125/60 H 99 02/04/18 09:00 02/04/18 12:47 02/04/18 12:47 02/04/18 09:00 02/04/18 09:00 Oxygen Flow Rate (L/min) 3 Oxygen Delivery Method Nasal Cannula Weight: 57.9 kg Body Mass Index (BMI) 21.1 Intake and Output for Last 24 Hours 02/02/18 02/03/18 02/04/18 23:59 23:59 23:59 Intake Total 500 / 500 1010 / 1010 600 / 600 Output Total 1300 / 1300 950 / 950 300 / 300 Balance -800 / -800 60 / 60 300 / 300 Laboratory Tests Past 24 Hrs 02/04/18 05:40 Sodium 141 Potassium 4.8 Chloride 100 Carbon Dioxide 37.0 H Anion Gap 4 L BUN 20 H Creatinine 0.45 L Estim Creat Clear Calc 43.75 Est GFR (MDRD) Af Amer 174 Est GFR (MDRD) Non-Af 144 BUN/Creatinine Ratio 44.4 H Glucose 147 H Calcium 9.8 Medical Necessity - Tobacco Use Smoking Status: Former smoker Tobacco Use: Non-smoker Assessment/Plan Active and Suspected Problems (Last Reviewed 12/03/17 @ 10:29 by Aj Gray MD ) CAP (community acquired pneumonia) (Acute) COPD with acute exacerbation (Acute) Osteoporosis (Suspected) Hypomagnesemia (Acute) 1. Acute on chronic hypoxic hypercapneic respiratory failure 2/2 human metapneumovirus and BL CAP pna presumed gram positive - continue bipap at night. Prednisone taper. Azithromycin complete. Continue aerosols. No fever/ leukocytosis. Flu neg. Sputum with Mixed gregory/molina (she is on ICS at home, no mouth or throat pain, no thrush lesions on exam). On home O2 levels. Pulmonary and Cardio following. 2. Paroxysmal AF with RVR - rate stable. cardiology following. Increase Cardizem , continue xarelto. Consider Stress test when breathing improved. Check TSH. Trop neg. 3. COPD and pulmonary fibrosis - as above. F/u with Dr. Carney as outpatient. 4. Debility and compression fractures - PTOT. Calcium/VitD repletion. Presumed osteoporosis. 5. Hypothyroid - continue synthroid and check TSH 6. Anx/Dep - home meds. 7. Chronic Iron def anemia - stable. DVT ppx: Xarelto DC planning: Awaiting precert for SNF/TCU This patient was seen by Segundo Tirado PA-C under the supervision of Doctor Webster. <Catrachito Webster - Last Filed: 02/04/18 15:16> - Physical Exam Vital Signs Temp Pulse Resp BP Pulse Ox 97.9 F 85 16 125/60 H 99 02/04/18 09:00 02/04/18 12:47 02/04/18 12:47 02/04/18 09:00 02/04/18 09:00 Oxygen Flow Rate (L/min) 3 Oxygen Delivery Method Nasal Cannula Weight: 127 lb 10.362 oz Body Mass Index (BMI) 21.1 Intake and Output for Last 24 Hours 02/02/18 02/03/18 02/04/18 23:59 23:59 23:59 Intake Total 500 / 500 1010 / 1010 600 / 600 Output Total 1300 / 1300 950 / 950 300 / 300 Balance -800 / -800 60 / 60 300 / 300 Laboratory Tests Past 24 Hrs 02/04/18 05:40 Sodium 141 Potassium 4.8 Chloride 100 Carbon Dioxide 37.0 H Anion Gap 4 L BUN 20 H Creatinine 0.45 L Estim Creat Clear Calc 43.75 Est GFR (MDRD) Af Amer 174 Est GFR (MDRD) Non-Af 144 BUN/Creatinine Ratio 44.4 H Glucose 147 H Calcium 9.8 Assessment/Plan Hospitalist note: I am seeing this patient in conjunction with Segundo Tirado. I independently seen and examined the patient. Progress note above reviewed and I agree with above treatment plan. Patient remains stable, complaining of exertional shortness of breath but at rest, she is fine. Remains on 3 L of oxygen. Physical examination: General: Alert, Oriented x3, Cooperative, - - Moderately short of breath on BiPAP. HEENT: Atraumatic, PERRLA, EOMI Oral: Moist Mucosa, No Gingival or Mucosal Lesions/ Ulcerations Neck: Supple, No JVD, Negative Carotid Bruits, Trachea Midline, Thyroid Normal Size and Texture Lungs: Diminished, Rales, Rhonchi, Short of Breath, Tachypneic, - - Decreased breath sounds bilateral, more at the bases. Cardiovascular: Regular rate, Regular Rhythm, Normal S1, Normal S2, PMI Normal. Abdomen: Bowel Sounds Present, Soft, Non Tender, Non-Distended, No Hepato- splenomegaly Extremities: No clubbing, No cyanosis, No edema Skin: No rashes, No breakdown Lymphatic: No Cervical, Supraclavicular, or Inguinal Adenopathy Neurological: Cranial nerves II-XII grossly intact, Motor Exam 5/5 strength throughout Psych/Mental Status: Normal Affect, Appropriate, Alert and oriented to time, place, person, mood and affect. Assessment and plan: This is a 77 years old female patient admitted because of worsening shortness of breath, found to have right upper lobe community acquired pneumonia and acute COPD exacerbation. #1 right upper lobe community-acquired pneumonia: Completed 5 days of IV antibiotic therapy. She has been afebrile, no leukocytosis. She has been tolerating BiPAP overnight, she is down to 3 L of oxygen this morning. Plan: Awaiting insurance approval to be transferred to half-way facility. #2 acute COPD exacerbation/acute on chronic hypercapnic respiratory failure: she is on IV steroids and bronchodilators. She has been tolerating BiPAP overnight, plan as above. #3 A. fib with RVR: At rest, heart rate has been under control but when she ambulates, heart rate was up to 120s. Cardizem dose increased to 240 mg p.o. daily. #4 hypomagnesemia: Magnesium is replaced and corrected. #5 COPD/chronic respiratory failure: She has severe COPD/emphysema and she has been on home oxygen at 3 L at home. Plan as above. #6 hypothyroidism: Continue levothyroxine. #7 chronic anemia: Normocytic anemia, baseline hemoglobin around 10-11 g/dL. most recent hemoglobin is 12.6 g/dL, stable. #8 chronic back pain/vertebral compression fractures: She is on Tylenol, pain is controlled. #9 anxiety/depression: Continue trazodone and Zoloft as well as BuSpar. #10 DVT prophylaxis: Continue Xarelto. This note was generated with [employer] dictation software. It may contain incorrect words, spelling, and punctuation that were not noted in checking the note before signing. Code Visit Inpatient E&M: 51037 Subs Hosp L2
--- NOTE | 2018-02-04 15:13 | PCM.TXEXTCAR ---
- Diet 02/02/18 08:24 Diet: Regular Diet Food consistency:: Regular Liquid Consistency:: Regular/Thin Dietary Modifications:: Gluten Free Is pt able to select menu?: Yes - Routine Orders/Code Status Suppository Type: Dulcolax 10mg Suppository Frequency: Daily PRN O2 Frequency: Continuous Routine Lab Work: CBC, BMP Code Status: [id number]-A - Therapies Physical Therapy: Eval and Treat Occupational Therapy: Eval and Treat - Problem/Diagnosis (1) CAP (community acquired pneumonia) Status: Acute Current Visit: Yes (2) COPD with acute exacerbation Status: Acute Current Visit: Yes (3) Atrial fibrillation Status: Acute Current Visit: Yes (4) Pulmonary fibrosis Status: Chronic Current Visit: Yes (5) Normochromic normocytic anemia Status: Chronic Current Visit: Yes (6) Iron deficiency Status: Chronic Current Visit: Yes (7) Osteoporosis Status: Suspected Current Visit: Yes (8) Vertebral compression fracture Status: Chronic Current Visit: Yes (9) History of malnutrition Status: Chronic Current Visit: Yes (10) Restless leg syndrome Status: Chronic Current Visit: Yes (11) Hypothyroidism Status: Chronic Current Visit: Yes (12) Anxiety and depression Status: Chronic Current Visit: Yes (13) Insomnia Status: Chronic Current Visit: Yes (14) Hypomagnesemia Status: Acute Current Visit: Yes (15) Paroxysmal atrial fibrillation Status: Chronic Current Visit: No (16) COPD (chronic obstructive pulmonary disease) Status: Chronic Current Visit: No (17) Chronic respiratory failure with hypoxia Status: Chronic Current Visit: No - Allergies/Procedures Done in Hospital Allergies/Adverse Reactions: Allergies amoxicillin trihydrate [From Augmentin] Allergy (Verified 12/03/17 09:51) Rash gluten Allergy (Verified 12/03/17 09:51) Other potassium clavulanate [From Augmentin] Allergy (Verified 12/03/17 09:51) Rash risperidone [From Risperdal] Adverse Reaction (Severe, Verified 12/03/17 09:51) Other GOES CRAZY HALLICINATE esomeprazole magnesium [From Nexium] Adverse Reaction (Verified 12/03/17 09:51) Unknown furosemide [From Lasix] Adverse Reaction (Verified 12/03/17 09:51) CONFUSION CONFUSION Sulfa (Sulfonamide Antibiotics) Adverse Reaction (Verified 12/03/17 09:51) CONFUSION CONFUSION sulfamethoxazole [From Bactrim] Adverse Reaction (Verified 12/03/17 09:51) CONFUSION CONFUSION trimethoprim [From Bactrim] Adverse Reaction (Verified 12/03/17 09:51) CONFUSION CONFUSION Procedures: None - Type of Care/Length of Stay Estimated LOS: Convalescent Care Less Than 30 days Type of Care Needed: Skilled Rehab Potential: Fair Prognosis: Fair - Additional Orders/Day of Discharge Day of Discharge: 02/04/18 - Dietary and Speech Recommendations Dietitian Recommendations/Changes: Rec Regular/Gluten-free diet as tolerated. Ensure Clear w/ meals per pt preference. - Follow Up Care Primary Care Physician: Alexey Herman MD [Primary Care Provider] - Please follow up with your Primary Care Physician in: 2 weeks Please Follow Up With: Parvez King MD When: 1-2 weeks Please Follow Up With: Kelechi Echavarria MD When: 2-3 weeks
--- NOTE | 2018-02-04 15:16 | CASEMGMT ---
Patient was approved for TCU. SW notified patient, her daughter, RN, and embedded software test engineer. Physician also notified. Plan: [facility] TCU under skilled level of care. Lillian LARA
--- NOTE | 2018-02-04 15:44 | NURSING ---
Report called to Susy in TCU. Bed currently in use and pending DC. Susy will call us after the patient leaves and the room has been clean.
--- NOTE | 2018-02-04 16:39 | PCM.DC.SUM ---
<Segundo Tirado - Last Filed: 02/04/18 16:39> Discharge Date and Diagnosis - Problem List Patient Problems: Active and Suspected Problems (Last Reviewed 12/03/17 @ 10:29 by Aj Gray MD) CAP (community acquired pneumonia) (Acute) COPD with acute exacerbation (Acute) Osteoporosis (Suspected) Hypomagnesemia (Acute) Atrial fibrillation (Acute) Date of Admission: 01/26/18 Date of Discharge: 02/04/18 - Primary Discharge Diagnosis Active and Suspected Problems (Last Reviewed 12/03/17 @ 10:29 by Aj Gray MD) CAP (community acquired pneumonia) (Acute) presumed streptococcal Acute bronchitis secondary to human [place] pneumo virus COPD with acute exacerbation (Acute) Atrial fibrillation with rapid ventricular response (Acute) Chronic hypoxic respiratory failure secondary to advanced COPD Pulmonary fibrosis Osteoporosis (Suspected) Hypomagnesemia (Acute) Hypothyroidism Chronic anemia Compression fractures Anxiety depression - Secondary Discharge Diagnosis Chronic Problems (Last Reviewed 12/03/17 @ 10:29 by Aj Gray MD) Normochromic normocytic anemia (Chronic) Iron deficiency (Chronic) Vertebral compression fracture (Chronic) History of malnutrition (Chronic) Restless leg syndrome (Chronic) Hypothyroidism (Chronic) Anxiety and depression (Chronic) Insomnia (Chronic) Pulmonary fibrosis (Chronic) Paroxysmal atrial fibrillation (Chronic) COPD (chronic obstructive pulmonary disease) (Chronic) Chronic respiratory failure with hypoxia (Chronic) Hospital Course and Treatment Imaging Results: RAD/Chest PA and Lateral IMPRESSION: 1. New patchy right upper lobe airspace disease possibly representing pneumonia. 2. Osteoporosis with multiple compression fractures. 3. COPD and sequela of pulmonary fibrosis. RAD/Chest PA and Lateral IMPRESSION: Hyperinflation. Stable bilateral patchy infiltrates. RAD/Chest 1 View (Portable) IMPRESSION: Hyperinflation. Residual infiltrate in the lateral aspect of the right upper lobe as well as in the left suprahilar region. Consultations: Cardiology-[facility] Pulmonology-[facility] Operations: None Procedures: None Summary of Care Provided: Physical exam on day of discharge: See daily progress note Hospital course: The patient is a 77 year old F with a history of chronic respiratory failure with hypoxia on home oxygen, paroxysmal atrial fibrillation, advanced COPD and pulmonary fibrosis, vertebral compression fracture secondary to suspected osteoporosis, hypothyroidism, restless legs, malnutrition, anxiety and depression, chronic anemia, who presented to the emergency room with increasing shortness of breath with a dry productive cough, fevers and chills subjectively, who was found to be tachycardic, temperature of 100.2?, left shift, and a chest x-ray indicative of a patchy right upper lobe infiltrate. She is felt to be in acute COPD exacerbation with right upper lobe pneumonia and was admitted noted on azithromycin and Rocephin, Solu-Medrol and aerosols. After initially improving she started to decline again and required rescue BiPAP. Critical care was consulted. ABG demonstrated CO2 retention. She is admitted to the intensive care unit and was maintained on BiPAP therapy. She developed atrial fibrillation with rapid ventricular response. Her beta-ravindra was discontinued and she started on Cardizem. Her rate was controlled with Cardizem. She is on xarelto for anticoagulation. She continued BiPAP at night. She was able to be transitioned out of the intensive care unit to progressive care unit. She completed total of 5 days of antibiotic therapy.. Her respiratory panel demonstrated human [place] pneumo virus, sputum Gram stain and culture demonstrated presumptive molina albicans and mixed gregory. he did not have any evidence of oral or esophageal thrush Influenza screen was negative. Her oxygen was able to be weaned back down to her baseline level of 3 L/min. She worked with physical therapy and occupational therapy and required further longterm. Dr. King advised for her to continue a redness on taper orally at discharge and he did recommend that she continue BiPAP at the following settings:This patient would benefit from bilevel therapy, recommend supplemental O2 blended in, inspiratory pressure 14 expiratory pressure of 5. She was accepted to TCU. The patient remained in stable condition and was discharged to longterm. Please follow-up with your primary care provider with your marble ceiling installer as an outpatient. He will also need follow-up with cardiology. She has end-stage COPD but is not interested in hospice at this time. This patient was seen by Segundo Tirado PA-C under the supervision of Doctor Webster. [] Discharge Diet: Low fat/ Low Cholesterol, 2000 mg Sodium Diet Home Medications: Medications to take at Discharge Levothyroxine [Synthroid] 50 mcg PO DAILY 07/12/17 busPIRone [Buspar] 5 mg PO TID 07/23/17 Acetaminophen [Tylenol Tablet] 650 mg PO Q6H PRN PRN 09/13/17 Albuterol Aerosols [Ventolin Aerosols] 2.5 mg INHALATION Q2H PRN PRN vial.neb. 09/13/17 Sertraline HCl [Zoloft] 50 mg PO DAILY 09/13/17 Famotidine [Pepcid] 20 mg PO BID #60 tab 09/24/17 Hydrocortisone [Anusol Hc] 25 mg RECTAL TID PRN PRN #90 suppos. 09/24/17 magnesium oxide 400 mg tablet 400 mg PO DAILY #90 tab 12/03/17 rivaroxaban 20 mg tablet 20 mg PO DINNER #90 tab 12/03/17 roflumilast 500 mcg tablet 500 mcg PO QDAY 12/03/17 Calcium Carb/Vitamin D [Os-Bud 500MG + D] 1 tablet PO TIDCM 01/26/18 Fluticasone/Vilanterol [Breo Ellipta 200-25 Mcg INH] 1 puff INHALATION DAILY 01/26/18 Iron Polysaccharide Complex [Ferrex 150] 150 mg PO DAILYCM 01/26/18 Menthol/Lanolin/Calamine/Znox [Calmoseptine Ointment] 1 applic TOPICAL 0600,2200 01/26/18 Roflumilast [Daliresp] 1 tab PO DAILY 01/26/18 Umeclidinium [place] [Incruse Ellipta] 1 puff INHALATION DAILY 01/26/18 traZODone [Desyrel] 100 mg PO QHS 01/26/18 Alendronate Sodium [Fosamax] 70 mg PO Q7D@0700 tablet 02/04/18 Cyclobenzaprine [Flexeril] 5 mg PO TID PRN PRN tablet 02/04/18 Diltiazem CD [Cardizem CD] 240 mg PO DAILY capsule 02/04/18 Ipratropium/Albuterol Sulfate [Duoneb] 3 ml INHALATION Q6HWA.RT ampul.neb 02/04/18 Magnesium Hydroxide [Milk Of Magnesia] 30 ml PO DAILY PRN PRN udc 02/04/18 Montelukast [Singulair] 10 mg PO DAILY@1700 tablet 02/04/18 Polyethylene Glycol 3350 [Miralax] 17 gm PO DAILY packet 02/04/18 Potassium Chloride 20 meq PO DAILY #0 02/04/18 Prednisone 10 mg PO DAILY #30 tablet 02/04/18 Following Prescrptions Were Given to Patient: Prednisone 10 mg PO DAILY #30 tablet Primary Care Physician: Alexey Herman MD [Primary Care Provider] - Please follow up with your Primary Care Physician in: 2 weeks Please Follow Up With: Parvez King MD When: 1-2 weeks Please Follow Up With: Kelechi Echavarria MD When: 2-3 weeks Disposition: Longterm facility Minutes spent on discharge:: 40 Patient Condition:: Stable Medical Necessity - Tobacco Use Smoking Status: Former smoker Tobacco Use: Non-smoker Meaningful Use Info Meaningful Use Diagnoses (Choose all that apply): None applicable <Catrachito Webster [place] - Last Filed: 02/04/18 17:02> Discharge Date and Diagnosis - Primary Discharge Diagnosis Active and Suspected Problems (Last Reviewed 12/03/17 @ 10:29 by Aj Gray MD) CAP (community acquired pneumonia) (Acute) COPD with acute exacerbation (Acute) Osteoporosis (Suspected) Hypomagnesemia (Acute) Atrial fibrillation (Acute) - Secondary Discharge Diagnosis Chronic Problems (Last Reviewed 12/03/17 @ 10:29 by Aj Gray MD) Normochromic normocytic anemia (Chronic) Iron deficiency (Chronic) Vertebral compression fracture (Chronic) History of malnutrition (Chronic) Restless leg syndrome (Chronic) Hypothyroidism (Chronic) Anxiety and depression (Chronic) Insomnia (Chronic) Pulmonary fibrosis (Chronic) Paroxysmal atrial fibrillation (Chronic) COPD (chronic obstructive pulmonary disease) (Chronic) Chronic respiratory failure with hypoxia (Chronic) Hospital Course and Treatment Summary of Care Provided: Hospitalist note: Discharge summary above reviewed and I agree with above discharge plan. Patient was admitted for shortness of breath and dry cough and she was found to have right upper lobe community-acquired pneumonia as well as acute COPD exacerbation with acute on chronic hypercapnic respiratory failure. She had long protracted course during this hospital stay due to shortness of breath. She was treated with IV antibiotics, IV steroids and bronchodilators. Patient symptoms took so long time to improve. After admission to [facility] floor, patient became short of breath all of a sudden and she was found to have PCO2 of 72 and she was transferred to ICU and treated with BiPAP. She was continued on IV steroids, IV antibiotics and bronchodilators. Her symptoms did improve very slowly but she remained symptomatic on ambulation. All the time, she remains on 3 L of oxygen which is her baseline at home but she has been more short of breath and tachypneic up on ablation or even minimal activity. During the ICU stay, she went into A. fib with RVR for which she was started on IV Cardizem drip and then switched to oral Cardizem. Her breathing remained stable at rest. Sputum culture revealed [place] albicans and mixed gregory. Respiratory panel for viruses revealed human Metapneumo virus. Patient discharged to longterm facility in a stable medical condition, discharged on tapering course of prednisone, continued on bronchodilators, started on Cardizem CD 240 mg p.o. daily, plan is to follow-up with PCP in 2 weeks and follow-up with Dr. King in 1-2 weeks as well as cardiology in 2-3 weeks. Minutes spent on discharge:: 35 Meaningful Use Info Meaningful Use Diagnoses (Choose all that apply): None applicable Code Visit Inpatient E&M: 30066 Disch Hosp
--- NOTE | 2018-02-04 16:52 | DS.PCM_ITS ---
<Segundo Tirado - Last Filed: 02/04/18 16:39> Discharge Date and Diagnosis - Problem List Patient Problems: Active and Suspected Problems (Last Reviewed 12/03/17 @ 10:29 by Aj Gray MD ) CAP (community acquired pneumonia) (Acute) COPD with acute exacerbation (Acute) Osteoporosis (Suspected) Hypomagnesemia (Acute) Atrial fibrillation (Acute) Date of Admission: 01/26/18 Date of Discharge: 02/04/18 - Primary Discharge Diagnosis Active and Suspected Problems (Last Reviewed 12/03/17 @ 10:29 by Aj Gray MD ) CAP (community acquired pneumonia) (Acute) presumed streptococcal Acute bronchitis secondary to human [place] pneumo virus COPD with acute exacerbation (Acute) Atrial fibrillation with rapid ventricular response (Acute) Chronic hypoxic respiratory failure secondary to advanced COPD Pulmonary fibrosis Osteoporosis (Suspected) Hypomagnesemia (Acute) Hypothyroidism Chronic anemia Compression fractures Anxiety depression - Secondary Discharge Diagnosis Chronic Problems (Last Reviewed 12/03/17 @ 10:29 by Aj Gray MD) Normochromic normocytic anemia (Chronic) Iron deficiency (Chronic) Vertebral compression fracture (Chronic) History of malnutrition (Chronic) Restless leg syndrome (Chronic) Hypothyroidism (Chronic) Anxiety and depression (Chronic) Insomnia (Chronic) Pulmonary fibrosis (Chronic) Paroxysmal atrial fibrillation (Chronic) COPD (chronic obstructive pulmonary disease) (Chronic) Chronic respiratory failure with hypoxia (Chronic) Hospital Course and Treatment Imaging Results: RAD/Chest PA and Lateral IMPRESSION: 1. New patchy right upper lobe airspace disease possibly representing pneumonia. 2. Osteoporosis with multiple compression fractures. 3. COPD and sequela of pulmonary fibrosis. RAD/Chest PA and Lateral IMPRESSION: Hyperinflation. Stable bilateral patchy infiltrates. RAD/Chest 1 View (Portable) IMPRESSION: Hyperinflation. Residual infiltrate in the lateral aspect of the right upper lobe as well as in the left suprahilar region. Consultations: Cardiology-[facility] Pulmonology-[facility] Operations: None Procedures: None Summary of Care Provided: Physical exam on day of discharge: See daily progress note Hospital course: The patient is a 77 year old F with a history of chronic respiratory failure with hypoxia on home oxygen, paroxysmal atrial fibrillation, advanced COPD and pulmonary fibrosis, vertebral compression fracture secondary to suspected osteoporosis, hypothyroidism, restless legs, malnutrition, anxiety and depression, chronic anemia, who presented to the emergency room with increasing shortness of breath with a dry productive cough, fevers and chills subjectively , who was found to be tachycardic, temperature of 100.2?, left shift, and a chest x-ray indicative of a patchy right upper lobe infiltrate. She is felt to be in acute COPD exacerbation with right upper lobe pneumonia and was admitted noted on azithromycin and Rocephin, Solu-Medrol and aerosols. After initially improving she started to decline again and required rescue BiPAP. Critical care was consulted. ABG demonstrated CO2 retention. She is admitted to the intensive care unit and was maintained on BiPAP therapy. She developed atrial fibrillation with rapid ventricular response. Her beta-ravindra was discontinued and she started on Cardizem. Her rate was controlled with Cardizem. She is on xarelto for anticoagulation. She continued BiPAP at night. She was able to be transitioned out of the intensive care unit to progressive care unit. She completed total of 5 days of antibiotic therapy.. Her respiratory panel demonstrated human [place] pneumo virus, sputum Gram stain and culture demonstrated presumptive molina albicans and mixed gregory. he did not have any evidence of oral or esophageal thrush Influenza screen was negative. Her oxygen was able to be weaned back down to her baseline level of 3 L/min. She worked with physical therapy and occupational therapy and required further half-way. Dr. King advised for her to continue a redness on taper orally at discharge and he did recommend that she continue BiPAP at the following settings:This patient would benefit from bilevel therapy, recommend supplemental O2 blended in, inspiratory pressure 14 expiratory pressure of 5. She was accepted to TCU. The patient remained in stable condition and was discharged to half-way. Please follow-up with your primary care provider with your pit tanner as an outpatient. He will also need follow-up with cardiology. She has end-stage COPD but is not interested in hospice at this time. This patient was seen by Segundo Tirado PA-C under the supervision of Doctor Webster. [] Discharge Diet: Low fat/ Low Cholesterol, 2000 mg Sodium Diet Home Medications: Medications to take at Discharge Levothyroxine [Synthroid] 50 mcg PO DAILY 07/12/17 busPIRone [Buspar] 5 mg PO TID 07/23/17 Acetaminophen [Tylenol Tablet] 650 mg PO Q6H PRN PRN 09/13/17 Albuterol Aerosols [Ventolin Aerosols] 2.5 mg INHALATION Q2H PRN PRN vial.neb. 09/13/17 Sertraline HCl [Zoloft] 50 mg PO DAILY 09/13/17 Famotidine [Pepcid] 20 mg PO BID #60 tab 09/24/17 Hydrocortisone [Anusol Hc] 25 mg RECTAL TID PRN PRN #90 suppos. 09/24/17 magnesium oxide 400 mg tablet 400 mg PO DAILY #90 tab 12/03/17 rivaroxaban 20 mg tablet 20 mg PO DINNER #90 tab 12/03/17 roflumilast 500 mcg tablet 500 mcg PO QDAY 12/03/17 Calcium Carb/Vitamin D [Os-Bud 500MG + D] 1 tablet PO TIDCM 01/26/18 Fluticasone/Vilanterol [Breo Ellipta 200-25 Mcg INH] 1 puff INHALATION DAILY 06/07 Iron Polysaccharide Complex [Ferrex 150] 150 mg PO DAILYCM 01/26/18 Menthol/Lanolin/Calamine/Znox [Calmoseptine Ointment] 1 applic TOPICAL 0600, 2200 01/26/18 Roflumilast [Daliresp] 1 tab PO DAILY 01/26/18 Umeclidinium [place] [Incruse Ellipta] 1 puff INHALATION DAILY 01/26/18 traZODone [Desyrel] 100 mg PO QHS 01/26/18 Alendronate Sodium [Fosamax] 70 mg PO Q7D@0700 tablet 02/04/18 Cyclobenzaprine [Flexeril] 5 mg PO TID PRN PRN tablet 02/04/18 Diltiazem CD [Cardizem CD] 240 mg PO DAILY capsule 02/04/18 Ipratropium/Albuterol Sulfate [Duoneb] 3 ml INHALATION Q6HWA.RT ampul.neb 02/04 Magnesium Hydroxide [Milk Of Magnesia] 30 ml PO DAILY PRN PRN udc 02/04/18 Montelukast [Singulair] 10 mg PO DAILY@1700 tablet 02/04/18 Polyethylene Glycol 3350 [Miralax] 17 gm PO DAILY packet 02/04/18 Potassium Chloride 20 meq PO DAILY #0 02/04/18 Prednisone 10 mg PO DAILY #30 tablet 02/04/18 Following Prescrptions Were Given to Patient: Prednisone 10 mg PO DAILY #30 tablet Primary Care Physician: Alexey Herman MD [Primary Care Provider] - Please follow up with your Primary Care Physician in: 2 weeks Please Follow Up With: Parvez King MD When: 1-2 weeks Please Follow Up With: Kelechi Echavarria MD When: 2-3 weeks Disposition: [facility] facility Minutes spent on discharge:: 40 Patient Condition:: Stable Medical Necessity - Tobacco Use Smoking Status: Former smoker Tobacco Use: Non-smoker Meaningful Use Info Meaningful Use Diagnoses (Choose all that apply): None applicable <Catrachito Webster [place] - Last Filed: 02/04/18 17:02> Discharge Date and Diagnosis - Primary Discharge Diagnosis Active and Suspected Problems (Last Reviewed 12/03/17 @ 10:29 by Aj Gray MD ) CAP (community acquired pneumonia) (Acute) COPD with acute exacerbation (Acute) Osteoporosis (Suspected) Hypomagnesemia (Acute) Atrial fibrillation (Acute) - Secondary Discharge Diagnosis Chronic Problems (Last Reviewed 12/03/17 @ 10:29 by Aj Gray MD) Normochromic normocytic anemia (Chronic) Iron deficiency (Chronic) Vertebral compression fracture (Chronic) History of malnutrition (Chronic) Restless leg syndrome (Chronic) Hypothyroidism (Chronic) Anxiety and depression (Chronic) Insomnia (Chronic) Pulmonary fibrosis (Chronic) Paroxysmal atrial fibrillation (Chronic) COPD (chronic obstructive pulmonary disease) (Chronic) Chronic respiratory failure with hypoxia (Chronic) Hospital Course and Treatment Summary of Care Provided: Hospitalist note: Discharge summary above reviewed and I agree with above discharge plan. Patient was admitted for shortness of breath and dry cough and she was found to have right upper lobe community-acquired pneumonia as well as acute COPD exacerbation with acute on chronic hypercapnic respiratory failure. She had long protracted course during this hospital stay due to shortness of breath. She was treated with IV antibiotics, IV steroids and bronchodilators. Patient symptoms took so long time to improve. After admission to [facility] floor, patient became short of breath all of a sudden and she was found to have PCO2 of 72 and she was transferred to ICU and treated with BiPAP. She was continued on IV steroids, IV antibiotics and bronchodilators. Her symptoms did improve very slowly but she remained symptomatic on ambulation. All the time, she remains on 3 L of oxygen which is her baseline at home but she has been more short of breath and tachypneic up on ablation or even minimal activity. During the ICU stay, she went into A. fib with RVR for which she was started on IV Cardizem drip and then switched to oral Cardizem. Her breathing remained stable at rest. Sputum culture revealed Mol[place] albicans and mixed gregory. Respiratory panel for viruses revealed human Metapneumo virus. Patient discharged to half-way facility in a stable medical condition, discharged on tapering course of prednisone, continued on bronchodilators, started on Cardizem CD 240 mg p.o. daily, plan is to follow-up with PCP in 2 weeks and follow-up with Dr. King in 1-2 weeks as well as cardiology in 2-3 weeks. Minutes spent on discharge:: 35 Meaningful Use Info Meaningful Use Diagnoses (Choose all that apply): None applicable Code Visit Inpatient E&M: 45391 Disch Hosp
[2018-02-04] MEDS: Montelukast 10 MG Tablet PO (17:46)
[2018-02-04] MEDS: Rivaroxaban 20 MG Tablet PO (17:46)
[2018-02-04 19:13] LABS: T4 Free Direct 1.42 ng/dL (0.76-1.46)
== END 2018-02-04 18:37 | disposition skilled nursing facility (03) | DRG 190 ==
LOC: ED 10:45 → MS3 12:09 → ICU 02-01 12:40 → PCU 02-03 11:23
PROVIDERS: Internal Medicine Critical Care Medicine; Physician Assistant; Admitting Provider Internal Medicine; Emergency Provider Emergency Medicine; Family Provider Family Medicine; PCP Family Medicine; Visit Provider Hospitalist
DX: J44.0 Chronic obstructive pulmonary disease with (acute) lower respiratory infection (principal); J15.4 Pneumonia due to other streptococci; J96.22 Acute and chronic respiratory failure with hypercapnia; J96.11 Chronic respiratory failure with hypoxia; E87.2 Acidosis; M80.08XA Age-related osteoporosis with current pathological fracture, vertebra(e), initial encounter for fracture; J20.8 Acute bronchitis due to other specified organisms; B97.81 Human metapneumovirus as the cause of diseases classified elsewhere; J44.1 Chronic obstructive pulmonary disease with (acute) exacerbation; I48.0 Paroxysmal atrial fibrillation; E83.42 Hypomagnesemia; D50.9 Iron deficiency anemia, unspecified; E03.9 Hypothyroidism, unspecified; G25.81 Restless legs syndrome; G47.00 Insomnia, unspecified; F32.9 Major depressive disorder, single episode, unspecified; F41.9 Anxiety disorder, unspecified; Z99.81 Dependence on supplemental oxygen; Z79.01 Long term (current) use of anticoagulants; Z79.52 Long term (current) use of systemic steroids; Z79.899 Other long term (current) drug therapy; Z86.72 Personal history of thrombophlebitis; Z87.891 Personal history of nicotine dependence
CPT/HCPCS: 36415; 36600; 71045; 71046; 80048; 80053; 80076; 82728; 82803; 83540; 83550; 83735; 84100; 84439; 84443; 84484; 85025; 85027; 85045; 87070; 87205; 87633; 87641; 87804; 93005; 94002; 94003; 94640; 94667; 94668; 97110; 97116; 97162; 97166; 97530; 97535; 99285; J1756; J7040; J7050; A4216

== ENCOUNTER 2018-02-04 19:13 | Inpatient (IN) | payer MEDICARE, OTHER, SELFPAY ==
--- NOTE | 2018-02-04 19:17 | NURSING ---
Pt arrived from PCU at 1845 via hospital bed
[2018-02-04 20:12] VITALS: BP 122/68; PULSE 88; RESP 18; TEMP 36.7; O2SAT 100; BMI 18.5
--- NOTE | 2018-02-04 20:41 | PCM.HP.STD ---
Problem List (1) Shortness of breath Status: Acute (2) Weakness Status: Acute (3) Human metapneumovirus (hMPV) pneumonia Status: Acute (4) Anxiety Status: Chronic (5) Iron deficiency anemia Status: Chronic (6) Depression Status: Chronic (7) GERD (gastroesophageal reflux disease) Status: Chronic (8) Hypokalemia Status: Chronic (9) Osteoporosis Status: Chronic (10) Vertebral compression fracture Status: Chronic (11) Restless leg syndrome Status: Chronic (12) Hypothyroidism Status: Chronic (13) Insomnia Status: Chronic (14) Hypomagnesemia Status: Chronic (15) Atrial fibrillation Status: Chronic (16) COPD (chronic obstructive pulmonary disease) Status: Chronic History of Present Illness Date of Admission: 02/04/18 Chief Complaint: Here for rehabilitation, strengthening, prior to discharge home with spouse. The patient is a 77 year old Female with below past medical history presented to [facility] Emergency Department 01/26/2018 with worsening shortness of breath x 3 days. 01/26/2018 EKG sinus rhythm with premature supraventricular contractions, low voltage QRS. Increasing shortness of breath, dry cough, generalized weakness. Back spasms. Weakness in thigh weakness. Prednisone for last 3 to 6 months. Chest X-ray shows right upper lobe pneumonia. WBC normal, Hemoglobin 10.5, Hematocrit 34.6. BMP okay, Troponin 0.15. Levaquin, Duoneb, Albuterol, Prednisone given. 01/26/2018 Admit to Hospital. Rocephin, Azithromycin IV for community acquired pneumonia. Solu-Medrol IV, then prednisone for COPD exacerbation. Aerosols for COPD. Loratadine 10MG daily for allergic rhinitis. 01/27/2018 Solu-Medrol to prednisone, back to Solu-Medrol. Loratadine stopped due to somnolence. 01/29/2018 Respiratory panel positive for human metapneumovirus. Magnesium replaced. Venofer IV for iron deficiency anemia. 02/01/2018 Dr. Pedroza recommended stopping antibiotics, Mucomyst. BiPAP breaks during the day. 02/02/2018 Dr. Echavarria recommended stopping beta ravindra and converting to Diltiazem for atrial fibrillation due to negative effects of beta ravindra on COPD. Sputum grew Venessa albicans, mixed gregory. Dr. King recommended prednisone taper. Continue BiPAP therapy. 02/04/2018 Admit to TCU for rehabilitation, strengthening, prior to discharge home with spouse. Patient's COPD end stage, she was offered hospice referral but declined. Past Medical History Past Medical History (Chronic Problems): Chronic Problems (Last Reviewed 12/03/17 @ 10:29 by Aj Gray MD) Normochromic normocytic anemia (Chronic) Iron deficiency (Chronic) Osteoporosis (Chronic) Vertebral compression fracture (Chronic) History of malnutrition (Chronic) Restless leg syndrome (Chronic) Hypothyroidism (Chronic) Anxiety and depression (Chronic) Insomnia (Chronic) Hypomagnesemia (Chronic) Pulmonary fibrosis (Chronic) Atrial fibrillation (Chronic) Anxiety (Chronic) Iron deficiency anemia (Chronic) Depression (Chronic) GERD (gastroesophageal reflux disease) (Chronic) Hypokalemia (Chronic) Paroxysmal atrial fibrillation (Chronic) COPD (chronic obstructive pulmonary disease) (Chronic) Chronic respiratory failure with hypoxia (Chronic) Allergies amoxicillin trihydrate [From Augmentin] Allergy (Verified 12/03/17 09:51) Rash gluten Allergy (Verified 12/03/17 09:51) Other potassium clavulanate [From Augmentin] Allergy (Verified 12/03/17 09:51) Rash risperidone [From Risperdal] Adverse Reaction (Severe, Verified 12/03/17 09:51) Other GOES CRAZY HALLICINATE esomeprazole magnesium [From Nexium] Adverse Reaction (Verified 12/03/17 09:51) Unknown furosemide [From Lasix] Adverse Reaction (Verified 12/03/17 09:51) CONFUSION CONFUSION Sulfa (Sulfonamide Antibiotics) Adverse Reaction (Verified 12/03/17 09:51) CONFUSION CONFUSION sulfamethoxazole [From Bactrim] Adverse Reaction (Verified 12/03/17 09:51) CONFUSION CONFUSION trimethoprim [From Bactrim] Adverse Reaction (Verified 12/03/17 09:51) CONFUSION CONFUSION Home Medications: Ambulatory Orders Medication Instructions Recorded Levothyroxine [Synthroid] 50 mcg PO DAILY 07/12/17 busPIRone [Buspar] 5 mg PO TID 07/23/17 Acetaminophen [Tylenol Tablet] 650 mg PO Q6H PRN PRN 09/13/17 Albuterol Aerosols [Ventolin 2.5 mg INHALATION Q2H PRN PRN 09/13/17 Aerosols] vial.neb. Sertraline HCl [Zoloft] 50 mg PO DAILY 09/13/17 Famotidine [Pepcid] 20 mg PO BID #60 tab 09/24/17 Hydrocortisone [Anusol Hc] 25 mg RECTAL TID PRN PRN #90 09/24/17 suppos. rivaroxaban 20 mg tablet 20 mg PO DINNER #90 tab 12/03/17 roflumilast 500 mcg tablet 500 mcg PO QDAY 12/03/17 Calcium Carb/Vitamin D [Os-Bud 1 tablet PO TIDCM 01/26/18 500MG + D] Fluticasone/Vilanterol [Breo 1 puff INHALATION DAILY 01/26/18 Ellipta 200-25 Mcg INH] Iron Polysaccharide Complex 150 mg PO DAILYCM 01/26/18 [Ferrex 150] Menthol/Lanolin/Calamine/Znox 1 applic TOPICAL 0600,2200 01/26/18 [Calmoseptine Ointment] Roflumilast [Daliresp] 1 tab PO DAILY 01/26/18 Umeclidinium [place] [Incruse 1 puff INHALATION DAILY 01/26/18 Ellipta] traZODone [Desyrel] 100 mg PO QHS 01/26/18 Alendronate Sodium [Fosamax] 70 mg PO Q7D@0700 02/04/18 Cyclobenzaprine [Flexeril] 5 mg PO TID PRN PRN tablet 02/04/18 Diltiazem CD [Cardizem CD] 240 mg PO DAILY 02/04/18 Ipratropium/Albuterol Sulfate 3 ml INHALATION Q6HWA.RT 02/04/18 [Duoneb] Magnesium Hydroxide [Milk Of 30 ml PO DAILY PRN PRN udc 02/04/18 Magnesia] Magnesium Oxide [Mag-Ox 400] 400 mg PO DAILY@0800 02/04/18 Montelukast [Singulair] 10 mg PO DAILY@1700 02/04/18 Polyethylene Glycol 3350 [Miralax] 17 gm PO DAILY 02/04/18 Potassium Chloride 20 meq PO DAILY@0800 02/04/18 Prednisone 10 mg PO DAILY 02/04/18 Surgical History: noncontributory Psychiatric History: Anxiety, Depression 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 Denies: Chills, Fever, Weight Change HEENT: Denies: Head Aches, Sinus Congestion, Sinus Drainage Cardiovascular: Denies: Chest Pain, Palpitations Respiratory: Reports: Shortness of Breath, Shortness of breath upon exertion. Denies: Cough, Shortness of breath at rest, Sputum production Gastrointestinal: Denies: Abdominal Pain, Nausea, Vomiting Genitourinary: Denies: Dysuria Musculoskeletal: Denies: Joint Pain, Joint Tenderness Skin: Denies: Rash, Wounds Neurological: Denies: Numbness, Tingling, Focal weakness Psychiatric: Denies: Anxiety, Depression, Homicidal Ideations, Suicidal Ideations Hematologic/ Lymphatic: Denies: Easy Bruising, Easy Bleeding VTE Information - Inpt Only VTE Present on Admission: No VTE Mechan Device Prophylaxis: Knee High CLAUDAI Hose VTE Pharm Prophylaxis ordered?: Yes Patient Problems: Active and Suspected Problems (Last Reviewed 12/03/17 @ 10:29 by Aj Gray MD) Shortness of breath (Acute) Weakness (Acute) Human metapneumovirus (hMPV) pneumonia (Acute) - Physical Exam General: Alert, Oriented x3, Cooperative HEENT: Atraumatic, PERRLA, EOMI, Normocephalic Neck: Supple, No JVD, Negative Carotid Bruits Lungs: Clear to auscultation, Normal air movement Cardiovascular: Regular rate, No murmurs Abdomen: Bowel Sounds Present, Soft, Non Tender Extremities: No edema, Capillary Refill Less than 3 Seconds Skin: No rashes, No breakdown Musculoskeletal: No Tenderness to Palpation of Joints or Extremities Neurological: Cranial nerves II-XII grossly intact Psych/Mental Status: Normal Affect, Appropriate Vital Signs Temp Pulse Resp BP Pulse Ox 98.0 F 88 18 122/68 H 100 02/04/18 20:12 02/04/18 20:12 02/04/18 20:12 02/04/18 20:12 02/04/18 20:12 Oxygen Flow Rate (L/min) 3 Oxygen Delivery Method Nasal Cannula Weight: 56.971 kg Body Mass Index (BMI) 18.5 Assessment/Plan Active and Suspected Problems (Last Reviewed 12/03/17 @ 10:29 by Aj Gray MD) Shortness of breath (Acute) Weakness (Acute) Human metapneumovirus (hMPV) pneumonia (Acute) 77 year old female with below past medical history with below past medical history significant for stage 4 COPD, hospitalized for acute respiratory failure secondary to human metapneumovirus pneumonia, admitted to TCU with debility, here for rehabilitation, strengthening, prior to discharge home with spouse. Debility - PT/OT. Pain - Tylenol 1000MG Q8H PRN mild pain. Bowel - Miralax 17GM daily, Senna/colace 1 tablet BID, Dulcolax 10MG PO daily PRN. Pneumonia vaccination - Administer Prevnar 13 and/or Pneumovax 23 as necessary. DVT prophylaxis - Not necessary, already on Xarelto. COPD - Breo 1 puff daily, Incruse 1 puff daily, Duoneb 3ML Q6H, Albuterol 2.5MG Q2H PRN, Prednisone 10MG daily. Osteoporosis - Os-Bud D 1 tablet TID, Fosamax 70MG per week. Anxiety - Buspar 5MG TID. Muscle spasm - Flexeril 5MG TID PRN. Atrial Fibrillation - Diltiazem 240MG daily, Xarelto 20MG daily. GERD - Famotidine 20MG BID. Hemorrhoids - Anusol HC 25MG TID PRN. Iron deficiency anemia - Ferrex 150MG daily. Hypothyroidism - Levothyroxine 50MCG daily. Hypomagnesemia - Mag Oxide 400MG daily. Skin irritation - Calmoseptine BID bilateral buttocks. Allergic Rhinitis - Singulair 10MG daily. Hypokalemia - K-Dur 20MEQ daily. Depression - Sertraline 50MG daily. Insomnia - Trazodone 100MG QHS.
--- NOTE | 2018-02-04 20:51 | HP.PCM_ITS ---
Problem List (1) Shortness of breath Status: Acute (2) Weakness Status: Acute (3) Human metapneumovirus (hMPV) pneumonia Status: Acute (4) Anxiety Status: Chronic (5) Iron deficiency anemia Status: Chronic (6) Depression Status: Chronic (7) GERD (gastroesophageal reflux disease) Status: Chronic (8) Hypokalemia Status: Chronic (9) Osteoporosis Status: Chronic (10) Vertebral compression fracture Status: Chronic (11) Restless leg syndrome Status: Chronic (12) Hypothyroidism Status: Chronic (13) Insomnia Status: Chronic (14) Hypomagnesemia Status: Chronic (15) Atrial fibrillation Status: Chronic (16) COPD (chronic obstructive pulmonary disease) Status: Chronic History of Present Illness Date of Admission: 02/04/18 Chief Complaint: Here for rehabilitation, strengthening, prior to discharge home with spouse. The patient is a 77 year old Female with below past medical history presented to [facility] Emergency Department 01/26/2018 with worsening shortness of breath x 3 days. 01/26/2018 EKG sinus rhythm with premature supraventricular contractions, low voltage QRS. Increasing shortness of breath, dry cough, generalized weakness. Back spasms. Weakness in thigh weakness. Prednisone for last 3 to 6 months. Chest X-ray shows right upper lobe pneumonia. WBC normal, Hemoglobin 10.5, Hematocrit 34.6. BMP okay, Troponin 0.15. Levaquin, Duoneb, Albuterol, Prednisone given. 01/26/2018 Admit to Hospital. Rocephin, Azithromycin IV for community acquired pneumonia. Solu-Medrol IV, then prednisone for COPD exacerbation. Aerosols for COPD. Loratadine 10MG daily for allergic rhinitis. 01/27/2018 Solu-Medrol to prednisone, back to Solu-Medrol. Loratadine stopped due to somnolence. 01/29/2018 Respiratory panel positive for human metapneumovirus. Magnesium replaced. Venofer IV for iron deficiency anemia. 02/01/2018 Dr. Pedroza recommended stopping antibiotics, Mucomyst. BiPAP breaks during the day. 02/02/2018 Dr. Echavarria recommended stopping beta ravindra and converting to Diltiazem for atrial fibrillation due to negative effects of beta ravindra on COPD. Sputum grew Venessa albicans, mixed gregory. Dr. King recommended prednisone taper. Continue BiPAP therapy. 02/04/2018 Admit to TCU for rehabilitation, strengthening, prior to discharge home with spouse. Patient's COPD end stage, she was offered hospice referral but declined. Past Medical History Past Medical History (Chronic Problems): Chronic Problems (Last Reviewed 12/03/17 @ 10:29 by Aj Gray MD) Normochromic normocytic anemia (Chronic) Iron deficiency (Chronic) Osteoporosis (Chronic) Vertebral compression fracture (Chronic) History of malnutrition (Chronic) Restless leg syndrome (Chronic) Hypothyroidism (Chronic) Anxiety and depression (Chronic) Insomnia (Chronic) Hypomagnesemia (Chronic) Pulmonary fibrosis (Chronic) Atrial fibrillation (Chronic) Anxiety (Chronic) Iron deficiency anemia (Chronic) Depression (Chronic) GERD (gastroesophageal reflux disease) (Chronic) Hypokalemia (Chronic) Paroxysmal atrial fibrillation (Chronic) COPD (chronic obstructive pulmonary disease) (Chronic) Chronic respiratory failure with hypoxia (Chronic) Allergies amoxicillin trihydrate [From Augmentin] Allergy (Verified 12/03/17 09:51) Rash gluten Allergy (Verified 12/03/17 09:51) Other potassium clavulanate [From Augmentin] Allergy (Verified 12/03/17 09:51) Rash risperidone [From Risperdal] Adverse Reaction (Severe, Verified 12/03/17 09:51) Other GOES CRAZY HALLICINATE esomeprazole magnesium [From Nexium] Adverse Reaction (Verified 12/03/17 09:51) Unknown furosemide [From Lasix] Adverse Reaction (Verified 12/03/17 09:51) CONFUSION CONFUSION Sulfa (Sulfonamide Antibiotics) Adverse Reaction (Verified 12/03/17 09:51) CONFUSION CONFUSION sulfamethoxazole [From Bactrim] Adverse Reaction (Verified 12/03/17 09:51) CONFUSION CONFUSION trimethoprim [From Bactrim] Adverse Reaction (Verified 12/03/17 09:51) CONFUSION CONFUSION Home Medications: Ambulatory Orders Medication Instructions Recorded Levothyroxine [Synthroid] 50 mcg PO DAILY 07/12/17 busPIRone [Buspar] 5 mg PO TID 07/23/17 Acetaminophen [Tylenol Tablet] 650 mg PO Q6H PRN PRN 09/13/17 Albuterol Aerosols [Ventolin 2.5 mg INHALATION Q2H PRN PRN 09/13/17 Aerosols] vial.neb. Sertraline HCl [Zoloft] 50 mg PO DAILY 09/13/17 Famotidine [Pepcid] 20 mg PO BID #60 tab 09/24/17 Hydrocortisone [Anusol Hc] 25 mg RECTAL TID PRN PRN #90 09/24/17 suppos. rivaroxaban 20 mg tablet 20 mg PO DINNER #90 tab 12/03/17 roflumilast 500 mcg tablet 500 mcg PO QDAY 12/03/17 Calcium Carb/Vitamin D [Os-Bud 1 tablet PO TIDCM 01/26/18 500MG + D] Fluticasone/Vilanterol [Breo 1 puff INHALATION DAILY 01/26/18 Ellipta 200-25 Mcg INH] Iron Polysaccharide Complex 150 mg PO DAILYCM 01/26/18 [Ferrex 150] Menthol/Lanolin/Calamine/Znox 1 applic TOPICAL 0600,2200 01/26/18 [Calmoseptine Ointment] Roflumilast [Daliresp] 1 tab PO DAILY 01/26/18 Umeclidinium [place] [Incruse 1 puff INHALATION DAILY 01/26/18 Ellipta] traZODone [Desyrel] 100 mg PO QHS 01/26/18 Alendronate Sodium [Fosamax] 70 mg PO Q7D@0700 02/04/18 Cyclobenzaprine [Flexeril] 5 mg PO TID PRN PRN tablet 02/04/18 Diltiazem CD [Cardizem CD] 240 mg PO DAILY 02/04/18 Ipratropium/Albuterol Sulfate 3 ml INHALATION Q6HWA.RT 02/04/18 [Duoneb] Magnesium Hydroxide [Milk Of 30 ml PO DAILY PRN PRN udc 02/04/18 Magnesia] Magnesium Oxide [Mag-Ox 400] 400 mg PO DAILY@0800 02/04/18 Montelukast [Singulair] 10 mg PO DAILY@1700 02/04/18 Polyethylene Glycol 3350 [Miralax] 17 gm PO DAILY 02/04/18 Potassium Chloride 20 meq PO DAILY@0800 02/04/18 Prednisone 10 mg PO DAILY 02/04/18 Surgical History: noncontributory Psychiatric History: Anxiety, Depression 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 Denies: Chills, Fever, Weight Change HEENT: Denies: Head Aches, Sinus Congestion, Sinus Drainage Cardiovascular: Denies: Chest Pain, Palpitations Respiratory: Reports: Shortness of Breath, Shortness of breath upon exertion. Denies: Cough, Shortness of breath at rest, Sputum production Gastrointestinal: Denies: Abdominal Pain, Nausea, Vomiting Genitourinary: Denies: Dysuria Musculoskeletal: Denies: Joint Pain, Joint Tenderness Skin: Denies: Rash, Wounds Neurological: Denies: Numbness, Tingling, Focal weakness Psychiatric: Denies: Anxiety, Depression, Homicidal Ideations, Suicidal Ideations Hematologic/ Lymphatic: Denies: Easy Bruising, Easy Bleeding VTE Information - Inpt Only VTE Present on Admission: No VTE Mechan Device Prophylaxis: Knee High CLAUDIA Hose VTE Pharm Prophylaxis ordered?: Yes Patient Problems: Active and Suspected Problems (Last Reviewed 12/03/17 @ 10:29 by Aj Gray MD ) Shortness of breath (Acute) Weakness (Acute) Human metapneumovirus (hMPV) pneumonia (Acute) - Physical Exam General: Alert, Oriented x3, Cooperative HEENT: Atraumatic, PERRLA, EOMI, Normocephalic Neck: Supple, No JVD, Negative Carotid Bruits Lungs: Clear to auscultation, Normal air movement Cardiovascular: Regular rate, No murmurs Abdomen: Bowel Sounds Present, Soft, Non Tender Extremities: No edema, Capillary Refill Less than 3 Seconds Skin: No rashes, No breakdown Musculoskeletal: No Tenderness to Palpation of Joints or Extremities Neurological: Cranial nerves II-XII grossly intact Psych/Mental Status: Normal Affect, Appropriate Vital Signs Temp Pulse Resp BP Pulse Ox 98.0 F 88 18 122/68 H 100 02/04/18 20:12 02/04/18 20:12 02/04/18 20:12 02/04/18 20:12 02/04/18 20:12 Oxygen Flow Rate (L/min) 3 Oxygen Delivery Method Nasal Cannula Weight: 56.971 kg Body Mass Index (BMI) 18.5 Assessment/Plan Active and Suspected Problems (Last Reviewed 12/03/17 @ 10:29 by Aj Gray MD ) Shortness of breath (Acute) Weakness (Acute) Human metapneumovirus (hMPV) pneumonia (Acute) 77 year old female with below past medical history with below past medical history significant for stage 4 COPD, hospitalized for acute respiratory failure secondary to human metapneumovirus pneumonia, admitted to TCU with debility, here for rehabilitation, strengthening, prior to discharge home with spouse. * Debility - PT/OT. * Pain - Tylenol 1000MG Q8H PRN mild pain. * Bowel - Miralax 17GM daily, Senna/colace 1 tablet BID, Dulcolax 10MG PO daily PRN. * Pneumonia vaccination - Administer Prevnar 13 and/or Pneumovax 23 as necessary. * DVT prophylaxis - Not necessary, already on Xarelto. * COPD - Breo 1 puff daily, Incruse 1 puff daily, Duoneb 3ML Q6H, Albuterol 2.5MG Q2H PRN, Prednisone 10MG daily. * Osteoporosis - Os-Bud D 1 tablet TID, Fosamax 70MG per week. * Anxiety - Buspar 5MG TID. * Muscle spasm - Flexeril 5MG TID PRN. * Atrial Fibrillation - Diltiazem 240MG daily, Xarelto 20MG daily. * GERD - Famotidine 20MG BID. * Hemorrhoids - Anusol HC 25MG TID PRN. * Iron deficiency anemia - Ferrex 150MG daily. * Hypothyroidism - Levothyroxine 50MCG daily. * Hypomagnesemia - Mag Oxide 400MG daily. * Skin irritation - Calmoseptine BID bilateral buttocks. * Allergic Rhinitis - Singulair 10MG daily. * Hypokalemia - K-Dur 20MEQ daily. * Depression - Sertraline 50MG daily. * Insomnia - Trazodone 100MG QHS.
[2018-02-04] MEDS: Menthol/Lanolin/Calamine/Znox 113 GM Tube 1 APPLIC TOPICAL (22:12)
[2018-02-04] MEDS: traZODone 100 MG Tablet PO (22:12)
[2018-02-04] MEDS: busPIRone 5 MG Tablet PO (22:12)
[2018-02-05] VITALS (7 sets, daily range): BP systolic 154; BP diastolic 55; PULSE 75–85; RESP 12–25; TEMP 36.9; O2SAT 91–97
[2018-02-05] MEDS: dilTIAZem CD 240 MG Capsule PO (06:26)
[2018-02-05] MEDS: Polyethylene Glycol 3350 17 GM PACKET PO (06:26)
[2018-02-05] MEDS: Famotidine 20 MG Tablet PO ×2 (06:27→18:36)
[2018-02-05] MEDS: Senna/Docusate Sodium 1 Tablet PO ×2 (06:27→18:36)
[2018-02-05] MEDS: Menthol/Lanolin/Calamine/Znox 113 GM Tube 1 APPLIC TOPICAL ×2 (06:27→20:59)
[2018-02-05] MEDS: Sertraline 50 MG Tablet PO (06:27)
[2018-02-05] MEDS: Levothyroxine 50 MCG Tablet PO (06:27)
[2018-02-05] MEDS: busPIRone 5 MG Tablet PO ×3 (06:27→21:00)
--- NOTE | 2018-02-05 06:59 | NURSING ---
Code status discussed with pt, pt wishes to be a DNRCCA. Pt AOx3.
--- NOTE | 2018-02-05 07:00 | NURSING ---
Pt AOx3. Pt with new skin tear to right hand. Pt reports skin tear is from side rail. Pt denies mistreatment from staff. Pt skin thin. Side rail examined no sharp edges noted.
[2018-02-05] MEDS: Ipratropium/Albuterol Sulfate 3 ML AMPUL.NEB INHALATION ×2 (07:18→18:50)
[2018-02-05 07:43] LABS: Absolute Lymphocyte Count 0.45 X10^3/ul (0.83-4.51); Absolute Neutrophil Count 10.9 X10^3/uL (2.0-7.7); Basophil# 0.01 X10^3/uL; Basophil% 0.1 % (0-1); Hematocrit 45.6 % (37-47); Lymphocyte # 0.45 X10^3/ul (4.0); Lymphocyte % 3.5 % (19-41); Mean Corp Hgb Conc 30.7 g/gl (32-36); Mean Corpuscular Hgb 28.6 pg (27.0-32.0); Mean Corpuscular Volume 93.1 fL (81-99); Mean Platelet Vol. 9.5 fl (6.2-12.0); Monocyte# 1.56 X10^3/uL; Neutrophil % 83.6 % (47-70); Platelet Count 465 K/mm3 (150-450); RBC Distribution Width CV 15.4 % (11.6-14.6); RBC Distribution Width SD 51.1 fl (35.1-43.9)
[2018-02-05 07:44] LABS: Differential Indicated SCAN CRITERIA MET; POSITIVE COUNT NO; POSITIVE DIFFERENTIAL YES; POSITIVE MORPHOLOGY NO
[2018-02-05 08:07] LABS: Anion Gap 3 (5-15); BUN 21 mg/dL (7-18); BUN/Creat Ratio 36.2 RATIO (10-20); Calcium,Total 10.2 mg/dL (8.5-10.1); Chloride 99 mmol/L (98-107); Creatinine, Serum 0.58 mg/dL (0.55-1.02); EST Glomerular Filtration Rate 107 mL/min (>60); Est Glom Filt Rate - Afr Amer 130 mL/min (>60); Estimated Creatinine Clearance 43.04 ml/min; Glucose 103 mg/dL (74-106); Sodium Level 140 mmol/L (136-145)
[2018-02-05] MEDS: predniSONE 10 MG Tablet PO (08:17)
[2018-02-05] MEDS: Iron Polysaccharide Complex 150 MG CAPSULE PO (08:18)
[2018-02-05] MEDS: Calcium Carb/Vitamin D 1 TABLET Tablet PO ×3 (08:18→18:36)
[2018-02-05] MEDS: Magnesium Oxide 400 MG Tablet PO (08:18)
[2018-02-05] MEDS: Tuberculin,Purif.prot.deriv. 50 TU/ML Vial 5 ML ID (11:48)
--- NOTE | 2018-02-05 12:25 | NURSING ---
Dr. Stokes reviewed morning labs, NNO
[2018-02-05] MEDS: Montelukast 10 MG Tablet PO (18:35)
[2018-02-05] MEDS: Rivaroxaban 20 MG Tablet PO (18:35)
[2018-02-05] MEDS: traZODone 100 MG Tablet PO (21:00)
[2018-02-06] VITALS (7 sets, daily range): BP systolic 108; BP diastolic 57; PULSE 82–95; RESP 12–21; TEMP 36.8; O2SAT 94–97
[2018-02-06] MEDS: Levothyroxine 50 MCG Tablet PO (06:22)
[2018-02-06] MEDS: dilTIAZem CD 240 MG Capsule PO (06:22)
[2018-02-06] MEDS: Polyethylene Glycol 3350 17 GM PACKET PO (06:22)
[2018-02-06] MEDS: busPIRone 5 MG Tablet PO ×3 (06:22→21:28)
[2018-02-06] MEDS: Senna/Docusate Sodium 1 Tablet PO ×2 (06:22→17:48)
[2018-02-06] MEDS: Famotidine 20 MG Tablet PO ×2 (06:22→17:48)
[2018-02-06] MEDS: Sertraline 50 MG Tablet PO (06:22)
[2018-02-06] MEDS: Menthol/Lanolin/Calamine/Znox 113 GM Tube 1 APPLIC TOPICAL ×2 (07:05→21:31)
[2018-02-06] MEDS: Ipratropium/Albuterol Sulfate 3 ML AMPUL.NEB INHALATION ×3 (07:35→19:17)
[2018-02-06] MEDS: predniSONE 10 MG Tablet PO (09:05)
[2018-02-06] MEDS: Calcium Carb/Vitamin D 1 TABLET Tablet PO ×3 (09:06→17:48)
[2018-02-06] MEDS: Magnesium Oxide 400 MG Tablet PO (09:06)
[2018-02-06] MEDS: Iron Polysaccharide Complex 150 MG CAPSULE PO (09:06)
--- NOTE | 2018-02-06 09:42 | NURSING ---
Pt remains in contact/droplet precautions this shift, all nursing care provided in room
--- NOTE | 2018-02-06 11:49 | NURSING ---
PT IN PRECAUTIONS.
[2018-02-06] MEDS: Montelukast 10 MG Tablet PO (17:48)
[2018-02-06] MEDS: Rivaroxaban 20 MG Tablet PO (17:48)
[2018-02-06] MEDS: traZODone 100 MG Tablet PO (21:28)
[2018-02-07] VITALS (7 sets, daily range): BP systolic 103–150; BP diastolic 66–84; PULSE 80–100; RESP 12–18; TEMP 35.9; O2SAT 92–97
[2018-02-07] MEDS: Polyethylene Glycol 3350 17 GM PACKET PO (05:41)
[2018-02-07] MEDS: dilTIAZem CD 240 MG Capsule PO (05:41)
[2018-02-07] MEDS: busPIRone 5 MG Tablet PO ×3 (05:41→21:17)
[2018-02-07] MEDS: Sertraline 50 MG Tablet PO (05:42)
[2018-02-07] MEDS: Menthol/Lanolin/Calamine/Znox 113 GM Tube 1 APPLIC TOPICAL ×2 (05:42→21:16)
[2018-02-07] MEDS: Famotidine 20 MG Tablet PO ×2 (05:42→17:20)
[2018-02-07] MEDS: Levothyroxine 50 MCG Tablet PO (05:42)
[2018-02-07] MEDS: Senna/Docusate Sodium 1 Tablet PO (06:38)
[2018-02-07] MEDS: Ipratropium/Albuterol Sulfate 3 ML AMPUL.NEB INHALATION ×2 (07:20→13:36)
[2018-02-07] MEDS: Magnesium Oxide 400 MG Tablet PO (08:50)
[2018-02-07] MEDS: predniSONE 10 MG Tablet PO (08:51)
[2018-02-07] MEDS: Calcium Carb/Vitamin D 1 TABLET Tablet PO ×3 (08:51→17:20)
[2018-02-07] MEDS: Iron Polysaccharide Complex 150 MG CAPSULE PO (08:51)
[2018-02-07 12:09] LABS: Pathologist Review Reviewed
--- NOTE | 2018-02-07 15:34 | CASEMGMT ---
Insurance Clinical updates faxed to insurance. Will await continued stay determination. SW spoke with pt and dgt and explained insurance process and that updates are due today. Will notify with determination. Auth # [id number] SUSANNA Dunlap
[2018-02-07] MEDS: Montelukast 10 MG Tablet PO (17:20)
[2018-02-07] MEDS: Rivaroxaban 20 MG Tablet PO (17:21)
[2018-02-07] MEDS: traZODone 100 MG Tablet PO (21:17)
--- NOTE | 2018-02-07 23:36 | CPS ---
Patient refused to wear Bipap therapy. Patient informed that it was in her best interest to wear but patient still refused.
[2018-02-08] MEDS: busPIRone 5 MG Tablet PO ×3 (06:21→21:53)
[2018-02-08] MEDS: Senna/Docusate Sodium 1 Tablet PO (06:21)
[2018-02-08] MEDS: Famotidine 20 MG Tablet PO ×2 (06:21→17:40)
[2018-02-08] MEDS: Menthol/Lanolin/Calamine/Znox 113 GM Tube 1 APPLIC TOPICAL ×2 (06:21→21:53)
[2018-02-08] MEDS: Sertraline 50 MG Tablet PO (06:22)
[2018-02-08] MEDS: Levothyroxine 50 MCG Tablet PO (06:22)
[2018-02-08] MEDS: Polyethylene Glycol 3350 17 GM PACKET PO (06:22)
[2018-02-08] MEDS: dilTIAZem CD 240 MG Capsule PO (06:22)
[2018-02-08] MEDS: Ipratropium/Albuterol Sulfate 3 ML AMPUL.NEB INHALATION ×3 (06:50→18:55)
[2018-02-08 07:05] VITALS: PULSE 82; RESP 18; O2SAT 95
[2018-02-08] MEDS: Iron Polysaccharide Complex 150 MG CAPSULE PO (08:36)
[2018-02-08] MEDS: Magnesium Oxide 400 MG Tablet PO (08:36)
[2018-02-08] MEDS: Calcium Carb/Vitamin D 1 TABLET Tablet PO ×3 (08:36→17:40)
[2018-02-08 08:40] VITALS: O2SAT 95
--- NOTE | 2018-02-08 10:51 | CASEMGMT ---
Insurance Continued stay approved. Next update due on 02/11/18. Auth#[id number] Viki MULLINS, JUNIOR ENGINEER
--- NOTE | 2018-02-08 12:19 | CHAPLAIN ---
Type of Pastoral Visit _x__ Initial Visit ___ Follow-up Visit ___ On-call Visit ___ General Patient Visit ___ Spiritual Assessment ___ Family Conference ___ Bereavement ___ Rapid Response ___ Code Blue ___ Other (describe below) Pastoral Care Referral From _x__ Patient ___ Family ___ Nurse ___ Physician ___ Beader Tender ___ Dental Insurance Biller ___ Other (describe below) Sacrament/Intervention ___ Active listening ___ Anointing ___ Rastafari ___ Bereavement ___ Communion ___ Gina exploration ___ ___ Life review ___ Prayer ___ Reconciliation ___ Sacrament of Sick _x__ Supportive presence ___ Wedding ___ Other (describe below) Pastoral Comments offered a greeting to patient; pt is an acquaintance from home town; pt responded pleasantly to visit; no further concerns; brief and casual visit
[2018-02-08 13:55] VITALS: PULSE 88; RESP 16
--- NOTE | 2018-02-08 14:41 | PCM.PN.RX ---
<CynthiaSim boykin D - Last Filed: 02/08/18 14:41> Progress Note - Pharmacy Subjective: [facility] Admission Objective: Allergies amoxicillin trihydrate [From Augmentin] Allergy (Verified 12/03/17 09:51) Rash gluten Allergy (Verified 12/03/17 09:51) Other potassium clavulanate [From Augmentin] Allergy (Verified 12/03/17 09:51) Rash risperidone [From Risperdal] Adverse Reaction (Severe, Verified 12/03/17 09:51) Other GOES CRAZY HALLICINATE esomeprazole magnesium [From Nexium] Adverse Reaction (Verified 12/03/17 09:51) Unknown furosemide [From Lasix] Adverse Reaction (Verified 12/03/17 09:51) CONFUSION CONFUSION Sulfa (Sulfonamide Antibiotics) Adverse Reaction (Verified 12/03/17 09:51) CONFUSION CONFUSION sulfamethoxazole [From Bactrim] Adverse Reaction (Verified 12/03/17 09:51) CONFUSION CONFUSION trimethoprim [From Bactrim] Adverse Reaction (Verified 12/03/17 09:51) CONFUSION CONFUSION Home Medications Medication Instructions Recorded Levothyroxine [Synthroid] 50 mcg PO DAILY 07/12/17 busPIRone [Buspar] 5 mg PO TID 07/23/17 Acetaminophen [Tylenol Tablet] 650 mg PO Q6H PRN PRN 09/13/17 Albuterol Aerosols [Ventolin 2.5 mg INHALATION Q2H PRN PRN 09/13/17 Aerosols] vial.neb. Sertraline HCl [Zoloft] 50 mg PO DAILY 09/13/17 Famotidine [Pepcid] 20 mg PO BID #60 tab 09/24/17 Hydrocortisone [Anusol Hc] 25 mg RECTAL TID PRN PRN #90 09/24/17 suppos. rivaroxaban 20 mg tablet 20 mg PO DINNER #90 tab 12/03/17 roflumilast 500 mcg tablet 500 mcg PO QDAY 12/03/17 Calcium Carb/Vitamin D [Os-Bud 1 tablet PO TIDCM 01/26/18 500MG + D] Fluticasone/Vilanterol [Breo 1 puff INHALATION DAILY 01/26/18 Ellipta 200-25 Mcg INH] Iron Polysaccharide Complex 150 mg PO DAILYCM 01/26/18 [Ferrex 150] Menthol/Lanolin/Calamine/Znox 1 applic TOPICAL 0600,2200 01/26/18 [Calmoseptine Ointment] Roflumilast [Daliresp] 1 tab PO DAILY 01/26/18 Umeclidinium [place] [Incruse 1 puff INHALATION DAILY 01/26/18 Ellipta] traZODone [Desyrel] 100 mg PO QHS 01/26/18 Alendronate Sodium [Fosamax] 70 mg PO Q7D@0700 02/04/18 Cyclobenzaprine [Flexeril] 5 mg PO TID PRN PRN tablet 02/04/18 Diltiazem CD [Cardizem CD] 240 mg PO DAILY 02/04/18 Ipratropium/Albuterol Sulfate 3 ml INHALATION Q6HWA.RT 02/04/18 [Duoneb] Magnesium Hydroxide [Milk Of 30 ml PO DAILY PRN PRN udc 02/04/18 Magnesia] Magnesium Oxide [Mag-Ox 400] 400 mg PO DAILY@0800 02/04/18 Montelukast [Singulair] 10 mg PO DAILY@1700 02/04/18 Polyethylene Glycol 3350 [Miralax] 17 gm PO DAILY 02/04/18 Potassium Chloride 20 meq PO DAILY@0800 02/04/18 Prednisone 10 mg PO DAILY 02/04/18 Current Medications Generic Name Dose Route Start Last Admin Trade Name Freq PRN Reason Stop Dose Admin Acetaminophen 1,000 mg 02/04/18 21:19 Tylenol PO Q8H PRN PRN MILD PAIN (1-3/10) Albuterol Sulfate 2.5 mg 02/04/18 20:55 Ventolin Aerosols INHALATION Q2H PRN PRN Shortness of breath, wheezing Albuterol/Ipratropium 3 ml 02/05/18 00:00 02/08/18 06:50 Duoneb INHALATION 3 ml Q6HWA.RT STEVE Administration Alendronate Sodium 70 mg 02/10/18 07:00 Fosamax PO Q7D@0700 STEVE Bisacodyl 10 mg 02/04/18 21:02 Dulcolax RECTAL DAILY PRN Constipation Buspirone HCl 5 mg 02/04/18 22:00 02/08/18 14:12 Buspar PO 5 mg TID STEVE Administration Calamine/Phenol 1 applic 02/04/18 22:00 02/08/18 06:21 Calmoseptine Ointment TOPICAL 1 applicatio 0600,2200 STEVE Administration Protocol Calcium/Vitamin D 1 tablet 02/05/18 07:45 02/08/18 11:47 Os-Bud 500mg + D PO 1 tablet TIDCM STEVE Administration Cyclobenzaprine HCl 5 mg 02/04/18 20:55 Cyclobenzaprine Hcl PO TID PRN PRN BACK SPASM Diltiazem HCl 240 mg 02/05/18 06:00 02/08/18 06:22 Cardizem Cd PO 240 mg DAILY STEVE Administration Famotidine 20 mg 02/05/18 06:00 02/08/18 06:21 Pepcid PO 20 mg BID STEVE Administration Hydrocortisone Acetate 25 mg 02/04/18 20:55 Anusol Hc RECTAL TID PRN PRN hemorrhoid pain Levothyroxine Sodium 50 mcg 02/05/18 06:00 02/08/18 06:22 Synthroid PO 50 mcg DAILY STEVE Administration Magnesium Oxide 400 mg 02/05/18 08:00 02/08/18 08:36 Mag-Ox 400 PO 400 mg DAILY@0800 STEVE Administration Montelukast Sodium 10 mg 02/05/18 17:00 02/07/18 17:20 Singulair PO 10 mg DAILY@1700 STEVE Administration Nutritional Formula (Lactose Free) 120 ml 02/05/18 07:45 02/08/18 11:47 Ensure Clear PO 120 ml TIDCM STEVE Administration Polyethylene Glycol 17 gm 02/05/18 06:00 02/08/18 06:22 Miralax PO 17 gm DAILY STEVE Administration Polysaccharide Iron Complex 150 mg 02/05/18 08:00 02/08/18 08:36 Ferrex 150 PO 150 mg DAILYCM [facility] Administration Potassium Chloride 20 meq 02/05/18 08:00 02/08/18 08:36 K-Dur PO 20 meq DAILY@0800 STEVE Administration Prednisone 30 mg 02/05/18 08:00 02/07/18 08:51 PO 02/17/18 07:59 40 mg DAILY STEVE Administration Taper Rivaroxaban 20 mg 02/05/18 17:00 02/07/18 17:21 Xarelto PO 20 mg DINNER [facility] Administration Senna/Docusate Sodium 1 tablet 02/05/18 06:00 02/08/18 06:21 Senokot-S, Kylee-Colace PO 1 tablet BID STEVE Administration Sertraline HCl 50 mg 02/05/18 06:00 02/08/18 06:22 Zoloft PO 50 mg DAILY STEVE Administration Trazodone HCl 100 mg 02/04/18 22:00 02/07/18 21:17 Desyrel PO 100 mg QHS STEVE Administration Tuberculin PPD 5 tu 02/12/18 10:00 Tubersol, Aplisol, Ppd ID 02/12/18 10:01 X1 ONE Problem List (Last Reviewed 12/03/17 @ 10:29 by Aj Gray MD) Shortness of breath (Acute) Weakness (Acute) Human metapneumovirus (hMPV) pneumonia (Acute) Anxiety (Chronic) Iron deficiency anemia (Chronic) Depression (Chronic) GERD (gastroesophageal reflux disease) (Chronic) Hypokalemia (Chronic) Vital Signs Temp Pulse Resp BP Pulse Ox 96.7 F L 82 18 103/66 95 02/07/18 16:00 02/08/18 07:05 02/08/18 07:05 02/07/18 18:45 02/08/18 08:40 Oxygen Flow Rate (L/min) 3 Oxygen Delivery Method Nasal Cannula Weight: 56.97 kg Body Mass Index (BMI) 18.5 Sodium 140 mmol/L (136-145) 02/05/18 07:23 Potassium 4.0 mmol/L (3.5-5.1) 02/05/18 07:23 Chloride 99 mmol/L (98-107) 02/05/18 07:23 Carbon Dioxide 38.0 mmol/L (21.0-32.0) H 02/05/18 07:23 Anion Gap 3 (5-15) L 02/05/18 07:23 BUN 21 mg/dL (7-18) H 02/05/18 07:23 Creatinine 0.58 mg/dL (0.55-1.02) 02/05/18 07:23 Est GFR (MDRD) Af Amer 130 mL/min (>60) 02/05/18 07:23 Est GFR (MDRD) Non-Af 107 mL/min (>60) 02/05/18 07:23 BUN/Creatinine Ratio 36.2 RATIO (10-20) H 02/05/18 07:23 Glucose 103 mg/dL (74-106) 02/05/18 07:23 Assessment/Plan: 1) Pain APAP as needed, cyclobenzaprine as needed for spasm, hydrocortisone suppositories for hemorrhoids. Continue to monitor prn medication use, daily pain scores. 2) AFib Rivaroxaban, diltiazem CD. BP/HR within goal range, hgb/hct at baseline. Continue to monitor BP/HR, for s/s bleeding. 3) Pulm Montelukast daily, Duoneb aerosols scheduled, albuterol aerosols as needed, prednisone taper. Continue to monitor prn medication use, for shortness of breath. 4) Hypothyroidism Levothyroxine daily. Continue to monitor s/s hyper/hypothyroidism. 5) GI Famotidine twice daily. Continue to monitor s/s GI distress. 6) Osteoporosis Ca/D, Alendronate. Continue to monitor clinically. 7) Nutrition Ensure, Fe, MgOx, KCl. Continue to monitor electrolytes. Psychotropic Medications: 8) Depression/Insomnia/Anxiety Sertraline daily, buspirone 3x daily, trazodone. Continue to monitor for s/s depression, insomnia, for agitation, sweating, fever. Unnecessary Medications: None Bowel Regimen: 9) Senna/s, PEG, prn bisacodyl. Continue to monitor prn medication use, for constipation/diarrhea. Date of Note:: 02/08/18 - Provider Comments Provider responsibility: Provider responsible to enter orders to implement recommendations <Marcus Stokes Chi - Last Filed: 02/08/18 17:55> Progress Note - Pharmacy Subjective: [] Objective: Allergies amoxicillin trihydrate [From Augmentin] Allergy (Verified 12/03/17 09:51) Rash gluten Allergy (Verified 12/03/17 09:51) Other potassium clavulanate [From Augmentin] Allergy (Verified 12/03/17 09:51) Rash risperidone [From Risperdal] Adverse Reaction (Severe, Verified 12/03/17 09:51) Other GOES CRAZY HALLICINATE esomeprazole magnesium [From Nexium] Adverse Reaction (Verified 12/03/17 09:51) Unknown furosemide [From Lasix] Adverse Reaction (Verified 12/03/17 09:51) CONFUSION CONFUSION Sulfa (Sulfonamide Antibiotics) Adverse Reaction (Verified 12/03/17 09:51) CONFUSION CONFUSION sulfamethoxazole [From Bactrim] Adverse Reaction (Verified 12/03/17 09:51) CONFUSION CONFUSION trimethoprim [From Bactrim] Adverse Reaction (Verified 12/03/17 09:51) CONFUSION CONFUSION Home Medications Medication Instructions Recorded Levothyroxine [Synthroid] 50 mcg PO DAILY 07/12/17 busPIRone [Buspar] 5 mg PO TID 07/23/17 Acetaminophen [Tylenol Tablet] 650 mg PO Q6H PRN PRN 09/13/17 Albuterol Aerosols [Ventolin 2.5 mg INHALATION Q2H PRN PRN 09/13/17 Aerosols] vial.neb. Sertraline HCl [Zoloft] 50 mg PO DAILY 09/13/17 Famotidine [Pepcid] 20 mg PO BID #60 tab 09/24/17 Hydrocortisone [Anusol Hc] 25 mg RECTAL TID PRN PRN #90 09/24/17 suppos. rivaroxaban 20 mg tablet 20 mg PO DINNER #90 tab 12/03/17 roflumilast 500 mcg tablet 500 mcg PO QDAY 12/03/17 Calcium Carb/Vitamin D [Os-Bud 1 tablet PO TIDCM 01/26/18 500MG + D] Fluticasone/Vilanterol [Breo 1 puff INHALATION DAILY 01/26/18 Ellipta 200-25 Mcg INH] Iron Polysaccharide Complex 150 mg PO DAILYCM 01/26/18 [Ferrex 150] Menthol/Lanolin/Calamine/Znox 1 applic TOPICAL 0600,2200 01/26/18 [Calmoseptine Ointment] Roflumilast [Daliresp] 1 tab PO DAILY 01/26/18 Umeclidinium [place] [Incruse 1 puff INHALATION DAILY 01/26/18 Ellipta] traZODone [Desyrel] 100 mg PO QHS 01/26/18 Alendronate Sodium [Fosamax] 70 mg PO Q7D@0700 02/04/18 Cyclobenzaprine [Flexeril] 5 mg PO TID PRN PRN tablet 02/04/18 Diltiazem CD [Cardizem CD] 240 mg PO DAILY 02/04/18 Ipratropium/Albuterol Sulfate 3 ml INHALATION Q6HWA.RT 02/04/18 [Duoneb] Magnesium Hydroxide [Milk Of 30 ml PO DAILY PRN PRN udc 02/04/18 Magnesia] Magnesium Oxide [Mag-Ox 400] 400 mg PO DAILY@0800 02/04/18 Montelukast [Singulair] 10 mg PO DAILY@1700 02/04/18 Polyethylene Glycol 3350 [Miralax] 17 gm PO DAILY 02/04/18 Potassium Chloride 20 meq PO DAILY@0800 02/04/18 Prednisone 10 mg PO DAILY 02/04/18 Current Medications Generic Name Dose Route Start Last Admin Trade Name Freq PRN Reason Stop Dose Admin Acetaminophen 1,000 mg 02/04/18 21:19 Tylenol PO Q8H PRN PRN MILD PAIN (1-310) Albuterol Sulfate 2.5 mg 02/04/18 20:55 Ventolin Aerosols INHALATION Q2H PRN PRN Shortness of breath, wheezing Albuterol/Ipratropium 3 ml 02/05/18 00:00 02/08/18 13:55 Duoneb INHALATION 3 ml Q6HWA.RT STEVE Administration Alendronate Sodium 70 mg 02/10/18 07:00 Fosamax PO Q7D@0700 STEVE Bisacodyl 10 mg 02/04/18 21:02 Dulcolax RECTAL DAILY PRN Constipation Buspirone HCl 5 mg 02/04/18 22:00 02/08/18 14:12 Buspar PO 5 mg TID STEVE Administration Calamine/Phenol 1 applic 02/04/18 22:00 02/08/18 06:21 Calmoseptine Ointment TOPICAL 1 applicatio 0600,2200 [facility] Administration Protocol Calcium/Vitamin D 1 tablet 02/05/18 07:45 02/08/18 17:40 Os-Bud 500mg + D PO 1 tablet TIDCM STEVE Administration Cyclobenzaprine HCl 5 mg 02/04/18 20:55 Cyclobenzaprine Hcl PO TID PRN PRN BACK SPASM Diltiazem HCl 240 mg 02/05/18 06:00 02/08/18 06:22 Cardizem Cd PO 240 mg DAILY STEVE Administration Famotidine 20 mg 02/05/18 06:00 02/08/18 17:40 Pepcid PO 20 mg BID STEVE Administration Hydrocortisone Acetate 25 mg 02/04/18 20:55 Anusol Hc RECTAL TID PRN PRN hemorrhoid pain Levothyroxine Sodium 50 mcg 02/05/18 06:00 02/08/18 06:22 Synthroid PO 50 mcg DAILY STEVE Administration Magnesium Oxide 400 mg 02/05/18 08:00 02/08/18 08:36 Mag-Ox 400 PO 400 mg DAILY@0800 STEVE Administration Montelukast Sodium 10 mg 02/05/18 17:00 02/08/18 17:40 Singulair PO 10 mg DAILY@1700 STEVE Administration Nutritional Formula (Lactose Free) 120 ml 02/05/18 07:45 02/08/18 17:39 Ensure Clear PO 120 ml TIDCM STEVE Administration Polyethylene Glycol 17 gm 02/05/18 06:00 02/08/18 06:22 Miralax PO 17 gm DAILY [facility] Administration Polysaccharide Iron Complex 150 mg 02/05/18 08:00 02/08/18 08:36 Ferrex 150 PO 150 mg DAILYCM [facility] Administration Potassium Chloride 20 meq 02/05/18 08:00 02/08/18 08:36 K-Dur PO 20 meq DAILY@0800 [facility] Administration Prednisone 30 mg 02/05/18 08:00 02/07/18 08:51 PO 02/17/18 07:59 40 mg DAILY [facility] Administration Taper Rivaroxaban 20 mg 02/05/18 17:00 02/08/18 17:39 Xarelto PO 20 mg DINNER [facility] Administration Senna/Docusate Sodium 1 tablet 02/05/18 06:00 02/08/18 17:38 Senokot-S, Kylee-Colace PO Not Given BID [facility] Sertraline HCl 50 mg 02/05/18 06:00 02/08/18 06:22 Zoloft PO 50 mg DAILY STEVE Administration Trazodone HCl 100 mg 02/04/18 22:00 02/07/18 21:17 Desyrel PO 100 mg QHS [facility] Administration Tuberculin PPD 5 tu 02/12/18 10:00 Tubersol, Aplisol, Ppd ID 02/12/18 10:01 X1 ONE Problem List (Last Reviewed 12/03/17 @ 10:29 by Aj Gray MD) Shortness of breath (Acute) Weakness (Acute) Human metapneumovirus (hMPV) pneumonia (Acute) Anxiety (Chronic) Iron deficiency anemia (Chronic) Depression (Chronic) GERD (gastroesophageal reflux disease) (Chronic) Hypokalemia (Chronic) Vital Signs Temp Pulse Resp BP Pulse Ox 98.9 F 92 22 H 114/62 95 02/08/18 15:33 02/08/18 15:33 02/08/18 15:33 02/08/18 15:33 02/08/18 15:33 Oxygen Flow Rate (L/min) 3 Oxygen Delivery Method Nasal Cannula Weight: 56.97 kg Body Mass Index (BMI) 18.5 Sodium 140 mmol/L (136-145) 02/05/18 07:23 Potassium 4.0 mmol/L (3.5-5.1) 02/05/18 07:23 Chloride 99 mmol/L (98-107) 02/05/18 07:23 Carbon Dioxide 38.0 mmol/L (21.0-32.0) H 02/05/18 07:23 Anion Gap 3 (5-15) L 02/05/18 07:23 BUN 21 mg/dL (7-18) H 02/05/18 07:23 Creatinine 0.58 mg/dL (0.55-1.02) 02/05/18 07:23 Est GFR (MDRD) Af Amer 130 mL/min (>60) 02/05/18 07:23 Est GFR (MDRD) Non-Af 107 mL/min (>60) 02/05/18 07:23 BUN/Creatinine Ratio 36.2 RATIO (10-20) H 02/05/18 07:23 Glucose 103 mg/dL (74-106) 02/05/18 07:23 Assessment/Plan: Psychotropic Medications: Unnecessary Medications: Bowel Regimen: - Provider Comments Provider responsibility: Provider responsible to enter orders to implement recommendations Provider Comments to Recommendations by Pharmacy: Agree
--- NOTE | 2018-02-08 14:51 | PHA.CONS_ITS ---
<CynthiaSim boykin D - Last Filed: 02/08/18 14:41> Progress Note - Pharmacy Subjective: [facility]CU Admission Objective: Allergies amoxicillin trihydrate [From Augmentin] Allergy (Verified 12/03/17 09:51) Rash gluten Allergy (Verified 12/03/17 09:51) Other potassium clavulanate [From Augmentin] Allergy (Verified 12/03/17 09:51) Rash risperidone [From Risperdal] Adverse Reaction (Severe, Verified 12/03/17 09:51) Other GOES CRAZY HALLICINATE esomeprazole magnesium [From Nexium] Adverse Reaction (Verified 12/03/17 09:51) Unknown furosemide [From Lasix] Adverse Reaction (Verified 12/03/17 09:51) CONFUSION CONFUSION Sulfa (Sulfonamide Antibiotics) Adverse Reaction (Verified 12/03/17 09:51) CONFUSION CONFUSION sulfamethoxazole [From Bactrim] Adverse Reaction (Verified 12/03/17 09:51) CONFUSION CONFUSION trimethoprim [From Bactrim] Adverse Reaction (Verified 12/03/17 09:51) CONFUSION CONFUSION Home Medications Medication Instructions Recorded Levothyroxine [Synthroid] 50 mcg PO DAILY 07/12/17 busPIRone [Buspar] 5 mg PO TID 07/23/17 Acetaminophen [Tylenol Tablet] 650 mg PO Q6H PRN PRN 09/13/17 Albuterol Aerosols [Ventolin 2.5 mg INHALATION Q2H PRN PRN 09/13/17 Aerosols] vial.neb. Sertraline HCl [Zoloft] 50 mg PO DAILY 09/13/17 Famotidine [Pepcid] 20 mg PO BID #60 tab 09/24/17 Hydrocortisone [Anusol Hc] 25 mg RECTAL TID PRN PRN #90 09/24/17 suppos. rivaroxaban 20 mg tablet 20 mg PO DINNER #90 tab 12/03/17 roflumilast 500 mcg tablet 500 mcg PO QDAY 12/03/17 Calcium Carb/Vitamin D [Os-Bud 1 tablet PO TIDCM 01/26/18 500MG + D] Fluticasone/Vilanterol [Breo 1 puff INHALATION DAILY 01/26/18 Ellipta 200-25 Mcg INH] Iron Polysaccharide Complex 150 mg PO DAILYCM 01/26/18 [Ferrex 150] Menthol/Lanolin/Calamine/Znox 1 applic TOPICAL 0600,2200 01/26/18 [Calmoseptine Ointment] Roflumilast [Daliresp] 1 tab PO DAILY 01/26/18 Umeclidinium [place] [Incruse 1 puff INHALATION DAILY 01/26/18 Ellipta] traZODone [Desyrel] 100 mg PO QHS 01/26/18 Alendronate Sodium [Fosamax] 70 mg PO Q7D@0700 02/04/18 Cyclobenzaprine [Flexeril] 5 mg PO TID PRN PRN tablet 02/04/18 Diltiazem CD [Cardizem CD] 240 mg PO DAILY 02/04/18 Ipratropium/Albuterol Sulfate 3 ml INHALATION Q6HWA.RT 02/04/18 [Duoneb] Magnesium Hydroxide [Milk Of 30 ml PO DAILY PRN PRN udc 02/04/18 Magnesia] Magnesium Oxide [Mag-Ox 400] 400 mg PO DAILY@0800 02/04/18 Montelukast [Singulair] 10 mg PO DAILY@1700 02/04/18 Polyethylene Glycol 3350 [Miralax] 17 gm PO DAILY 02/04/18 Potassium Chloride 20 meq PO DAILY@0800 02/04/18 Prednisone 10 mg PO DAILY 02/04/18 Current Medications Generic Name Dose Route Start Last Admin Trade Name Freq PRN Reason Stop Dose Admin Acetaminophen 1,000 mg 02/04/18 21:19 Tylenol PO Q8H PRN PRN MILD PAIN (1-3/10) Albuterol Sulfate 2.5 mg 02/04/18 20:55 Ventolin Aerosols INHALATION Q2H PRN PRN Shortness of breath, wheezing Albuterol/Ipratropium 3 ml 02/05/18 00:00 02/08/18 06:50 Duoneb INHALATION 3 ml Q6HWA.RT STEVE Administration Alendronate Sodium 70 mg 02/10/18 07:00 Fosamax PO Q7D@0700 STEVE Bisacodyl 10 mg 02/04/18 21:02 Dulcolax RECTAL DAILY PRN Constipation Buspirone HCl 5 mg 02/04/18 22:00 02/08/18 14:12 Buspar PO 5 mg TID STEVE Administration Calamine/Phenol 1 applic 02/04/18 22:00 02/08/18 06:21 Calmoseptine Ointment TOPICAL 1 applicatio 0600,2200 STEVE Administration Protocol Calcium/Vitamin D 1 tablet 02/05/18 07:45 02/08/18 11:47 Os-Bud 500mg + D PO 1 tablet TIDCM STEVE Administration Cyclobenzaprine HCl 5 mg 02/04/18 20:55 Cyclobenzaprine Hcl PO TID PRN PRN BACK SPASM Diltiazem HCl 240 mg 02/05/18 06:00 02/08/18 06:22 Cardizem Cd PO 240 mg DAILY STEVE Administration Famotidine 20 mg 02/05/18 06:00 02/08/18 06:21 Pepcid PO 20 mg BID STEVE Administration Hydrocortisone Acetate 25 mg 02/04/18 20:55 Anusol Hc RECTAL TID PRN PRN hemorrhoid pain Levothyroxine Sodium 50 mcg 02/05/18 06:00 02/08/18 06:22 Synthroid PO 50 mcg DAILY STEVE Administration Magnesium Oxide 400 mg 02/05/18 08:00 02/08/18 08:36 Mag-Ox 400 PO 400 mg DAILY@0800 STEVE Administration Montelukast Sodium 10 mg 02/05/18 17:00 02/07/18 17:20 Singulair PO 10 mg DAILY@1700 STEVE Administration Nutritional Formula (Lactose Free) 120 ml 02/05/18 07:45 02/08/18 11:47 Ensure Clear PO 120 ml TIDCM STEVE Administration Polyethylene Glycol 17 gm 02/05/18 06:00 02/08/18 06:22 Miralax PO 17 gm DAILY STEVE Administration Polysaccharide Iron Complex 150 mg 02/05/18 08:00 02/08/18 08:36 Ferrex 150 PO 150 mg DAILYCM [facility] Administration Potassium Chloride 20 meq 02/05/18 08:00 02/08/18 08:36 K-Dur PO 20 meq DAILY@0800 STEVE Administration Prednisone 30 mg 02/05/18 08:00 02/07/18 08:51 PO 02/17/18 07:59 40 mg DAILY STEVE Administration Taper Rivaroxaban 20 mg 02/05/18 17:00 02/07/18 17:21 Xarelto PO 20 mg DINNER [facility] Administration Senna/Docusate Sodium 1 tablet 02/05/18 06:00 02/08/18 06:21 Senokot-S, Kylee-Colace PO 1 tablet BID STEVE Administration Sertraline HCl 50 mg 02/05/18 06:00 02/08/18 06:22 Zoloft PO 50 mg DAILY STEVE Administration Trazodone HCl 100 mg 02/04/18 22:00 02/07/18 21:17 Desyrel PO 100 mg QHS STEVE Administration Tuberculin PPD 5 tu 02/12/18 10:00 Tubersol, Aplisol, Ppd ID 02/12/18 10:01 X1 ONE Problem List (Last Reviewed 12/03/17 @ 10:29 by Aj Gray MD) Shortness of breath (Acute) Weakness (Acute) Human metapneumovirus (hMPV) pneumonia (Acute) Anxiety (Chronic) Iron deficiency anemia (Chronic) Depression (Chronic) GERD (gastroesophageal reflux disease) (Chronic) Hypokalemia (Chronic) Vital Signs Temp Pulse Resp BP Pulse Ox 96.7 F L 82 18 103/66 95 02/07/18 16:00 02/08/18 07:05 02/08/18 07:05 02/07/18 18:45 02/08/18 08:40 Oxygen Flow Rate (L/min) 3 Oxygen Delivery Method Nasal Cannula Weight: 56.97 kg Body Mass Index (BMI) 18.5 Sodium 140 mmol/L (136-145) 02/05/18 07:23 Potassium 4.0 mmol/L (3.5-5.1) 02/05/18 07:23 Chloride 99 mmol/L (98-107) 02/05/18 07:23 Carbon Dioxide 38.0 mmol/L (21.0-32.0) H 02/05/18 07:23 Anion Gap 3 (5-15) L 02/05/18 07:23 BUN 21 mg/dL (7-18) H 02/05/18 07:23 Creatinine 0.58 mg/dL (0.55-1.02) 02/05/18 07:23 Est GFR (MDRD) Af Amer 130 mL/min (>60) 02/05/18 07:23 Est GFR (MDRD) Non-Af 107 mL/min (>60) 02/05/18 07:23 BUN/Creatinine Ratio 36.2 RATIO (10-20) H 02/05/18 07:23 Glucose 103 mg/dL (74-106) 02/05/18 07:23 Assessment/Plan: 1) Pain APAP as needed, cyclobenzaprine as needed for spasm, hydrocortisone suppositories for hemorrhoids. Continue to monitor prn medication use, daily pain scores. 2) AFib Rivaroxaban, diltiazem CD. BP/HR within goal range, hgb/hct at baseline. Continue to monitor BP/HR, for s/s bleeding. 3) Pulm Montelukast daily, Duoneb aerosols scheduled, albuterol aerosols as needed, prednisone taper. Continue to monitor prn medication use, for shortness of breath. 4) Hypothyroidism Levothyroxine daily. Continue to monitor s/s hyper/hypothyroidism. 5) GI Famotidine twice daily. Continue to monitor s/s GI distress. 6) Osteoporosis Ca/D, Alendronate. Continue to monitor clinically. 7) Nutrition Ensure, Fe, MgOx, KCl. Continue to monitor electrolytes. Psychotropic Medications: 8) Depression/Insomnia/Anxiety Sertraline daily, buspirone 3x daily, trazodone. Continue to monitor for s/s depression, insomnia, for agitation, sweating, fever. Unnecessary Medications: None Bowel Regimen: 9) Senna/s, PEG, prn bisacodyl. Continue to monitor prn medication use, for constipation/diarrhea. Date of Note:: 02/08/18 - Provider Comments Provider responsibility: Provider responsible to enter orders to implement recommendations <Marcus Stokes Chi - Last Filed: 02/08/18 17:55> Progress Note - Pharmacy Subjective: [] Objective: Allergies amoxicillin trihydrate [From Augmentin] Allergy (Verified 12/03/17 09:51) Rash gluten Allergy (Verified 12/03/17 09:51) Other potassium clavulanate [From Augmentin] Allergy (Verified 12/03/17 09:51) Rash risperidone [From Risperdal] Adverse Reaction (Severe, Verified 12/03/17 09:51) Other GOES CRAZY HALLICINATE esomeprazole magnesium [From Nexium] Adverse Reaction (Verified 12/03/17 09:51) Unknown furosemide [From Lasix] Adverse Reaction (Verified 12/03/17 09:51) CONFUSION CONFUSION Sulfa (Sulfonamide Antibiotics) Adverse Reaction (Verified 12/03/17 09:51) CONFUSION CONFUSION sulfamethoxazole [From Bactrim] Adverse Reaction (Verified 12/03/17 09:51) CONFUSION CONFUSION trimethoprim [From Bactrim] Adverse Reaction (Verified 12/03/17 09:51) CONFUSION CONFUSION Home Medications Medication Instructions Recorded Levothyroxine [Synthroid] 50 mcg PO DAILY 07/12/17 busPIRone [Buspar] 5 mg PO TID 07/23/17 Acetaminophen [Tylenol Tablet] 650 mg PO Q6H PRN PRN 09/13/17 Albuterol Aerosols [Ventolin 2.5 mg INHALATION Q2H PRN PRN 09/13/17 Aerosols] vial.neb. Sertraline HCl [Zoloft] 50 mg PO DAILY 09/13/17 Famotidine [Pepcid] 20 mg PO BID #60 tab 09/24/17 Hydrocortisone [Anusol Hc] 25 mg RECTAL TID PRN PRN #90 09/24/17 suppos. rivaroxaban 20 mg tablet 20 mg PO DINNER #90 tab 12/03/17 roflumilast 500 mcg tablet 500 mcg PO QDAY 12/03/17 Calcium Carb/Vitamin D [Os-Bud 1 tablet PO TIDCM 01/26/18 500MG + D] Fluticasone/Vilanterol [Breo 1 puff INHALATION DAILY 01/26/18 Ellipta 200-25 Mcg INH] Iron Polysaccharide Complex 150 mg PO DAILYCM 01/26/18 [Ferrex 150] Menthol/Lanolin/Calamine/Znox 1 applic TOPICAL 0600,2200 01/26/18 [Calmoseptine Ointment] Roflumilast [Daliresp] 1 tab PO DAILY 01/26/18 Umeclidinium [place] [Incruse 1 puff INHALATION DAILY 01/26/18 Ellipta] traZODone [Desyrel] 100 mg PO QHS 01/26/18 Alendronate Sodium [Fosamax] 70 mg PO Q7D@0700 02/04/18 Cyclobenzaprine [Flexeril] 5 mg PO TID PRN PRN tablet 02/04/18 Diltiazem CD [Cardizem CD] 240 mg PO DAILY 02/04/18 Ipratropium/Albuterol Sulfate 3 ml INHALATION Q6HWA.RT 02/04/18 [Duoneb] Magnesium Hydroxide [Milk Of 30 ml PO DAILY PRN PRN udc 02/04/18 Magnesia] Magnesium Oxide [Mag-Ox 400] 400 mg PO DAILY@0800 02/04/18 Montelukast [Singulair] 10 mg PO DAILY@1700 02/04/18 Polyethylene Glycol 3350 [Miralax] 17 gm PO DAILY 02/04/18 Potassium Chloride 20 meq PO DAILY@0800 02/04/18 Prednisone 10 mg PO DAILY 02/04/18 Current Medications Generic Name Dose Route Start Last Admin Trade Name Freq PRN Reason Stop Dose Admin Acetaminophen 1,000 mg 02/04/18 21:19 Tylenol PO Q8H PRN PRN MILD PAIN (1-310) Albuterol Sulfate 2.5 mg 02/04/18 20:55 Ventolin Aerosols INHALATION Q2H PRN PRN Shortness of breath, wheezing Albuterol/Ipratropium 3 ml 02/05/18 00:00 02/08/18 13:55 Duoneb INHALATION 3 ml Q6HWA.RT STEVE Administration Alendronate Sodium 70 mg 02/10/18 07:00 Fosamax PO Q7D@0700 STEVE Bisacodyl 10 mg 02/04/18 21:02 Dulcolax RECTAL DAILY PRN Constipation Buspirone HCl 5 mg 02/04/18 22:00 02/08/18 14:12 Buspar PO 5 mg TID STEVE Administration Calamine/Phenol 1 applic 02/04/18 22:00 02/08/18 06:21 Calmoseptine Ointment TOPICAL 1 applicatio 0600,2200 [facility] Administration Protocol Calcium/Vitamin D 1 tablet 02/05/18 07:45 02/08/18 17:40 Os-Bud 500mg + D PO 1 tablet TIDCM STEVE Administration Cyclobenzaprine HCl 5 mg 02/04/18 20:55 Cyclobenzaprine Hcl PO TID PRN PRN BACK SPASM Diltiazem HCl 240 mg 02/05/18 06:00 02/08/18 06:22 Cardizem Cd PO 240 mg DAILY STEVE Administration Famotidine 20 mg 02/05/18 06:00 02/08/18 17:40 Pepcid PO 20 mg BID STEVE Administration Hydrocortisone Acetate 25 mg 02/04/18 20:55 Anusol Hc RECTAL TID PRN PRN hemorrhoid pain Levothyroxine Sodium 50 mcg 02/05/18 06:00 02/08/18 06:22 Synthroid PO 50 mcg DAILY STEVE Administration Magnesium Oxide 400 mg 02/05/18 08:00 02/08/18 08:36 Mag-Ox 400 PO 400 mg DAILY@0800 STEVE Administration Montelukast Sodium 10 mg 02/05/18 17:00 02/08/18 17:40 Singulair PO 10 mg DAILY@1700 STEVE Administration Nutritional Formula (Lactose Free) 120 ml 02/05/18 07:45 02/08/18 17:39 Ensure Clear PO 120 ml TIDCM STEVE Administration Polyethylene Glycol 17 gm 02/05/18 06:00 02/08/18 06:22 Miralax PO 17 gm DAILY [facility] Administration Polysaccharide Iron Complex 150 mg 02/05/18 08:00 02/08/18 08:36 Ferrex 150 PO 150 mg DAILYCM [facility] Administration Potassium Chloride 20 meq 02/05/18 08:00 02/08/18 08:36 K-Dur PO 20 meq DAILY@0800 [facility] Administration Prednisone 30 mg 02/05/18 08:00 02/07/18 08:51 PO 02/17/18 07:59 40 mg DAILY [facility] Administration Taper Rivaroxaban 20 mg 02/05/18 17:00 02/08/18 17:39 Xarelto PO 20 mg DINNER [facility] Administration Senna/Docusate Sodium 1 tablet 02/05/18 06:00 02/08/18 17:38 Senokot-S, Kylee-Colace PO Not Given BID [facility] Sertraline HCl 50 mg 02/05/18 06:00 02/08/18 06:22 Zoloft PO 50 mg DAILY STEVE Administration Trazodone HCl 100 mg 02/04/18 22:00 02/07/18 21:17 Desyrel PO 100 mg QHS [facility] Administration Tuberculin PPD 5 tu 02/12/18 10:00 Tubersol, Aplisol, Ppd ID 02/12/18 10:01 X1 ONE Problem List (Last Reviewed 12/03/17 @ 10:29 by Aj Gray MD) Shortness of breath (Acute) Weakness (Acute) Human metapneumovirus (hMPV) pneumonia (Acute) Anxiety (Chronic) Iron deficiency anemia (Chronic) Depression (Chronic) GERD (gastroesophageal reflux disease) (Chronic) Hypokalemia (Chronic) Vital Signs Temp Pulse Resp BP Pulse Ox 98.9 F 92 22 H 114/62 95 02/08/18 15:33 02/08/18 15:33 02/08/18 15:33 02/08/18 15:33 02/08/18 15:33 Oxygen Flow Rate (L/min) 3 Oxygen Delivery Method Nasal Cannula Weight: 56.97 kg Body Mass Index (BMI) 18.5 Sodium 140 mmol/L (136-145) 02/05/18 07:23 Potassium 4.0 mmol/L (3.5-5.1) 02/05/18 07:23 Chloride 99 mmol/L (98-107) 02/05/18 07:23 Carbon Dioxide 38.0 mmol/L (21.0-32.0) H 02/05/18 07:23 Anion Gap 3 (5-15) L 02/05/18 07:23 BUN 21 mg/dL (7-18) H 02/05/18 07:23 Creatinine 0.58 mg/dL (0.55-1.02) 02/05/18 07:23 Est GFR (MDRD) Af Amer 130 mL/min (>60) 02/05/18 07:23 Est GFR (MDRD) Non-Af 107 mL/min (>60) 02/05/18 07:23 BUN/Creatinine Ratio 36.2 RATIO (10-20) H 02/05/18 07:23 Glucose 103 mg/dL (74-106) 02/05/18 07:23 Assessment/Plan: Psychotropic Medications: Unnecessary Medications: Bowel Regimen: - Provider Comments Provider responsibility: Provider responsible to enter orders to implement recommendations Provider Comments to Recommendations by Pharmacy: Agree
[2018-02-08 15:33] VITALS: BP 114/62; PULSE 92; RESP 22; TEMP 37.2; O2SAT 95
[2018-02-08] MEDS: Rivaroxaban 20 MG Tablet PO (17:39)
[2018-02-08] MEDS: Montelukast 10 MG Tablet PO (17:40)
[2018-02-08 18:55] VITALS: PULSE 96; RESP 20
[2018-02-08] MEDS: traZODone 100 MG Tablet PO (21:53)
[2018-02-09] MEDS: busPIRone 5 MG Tablet PO ×3 (05:49→21:04)
[2018-02-09] MEDS: Sertraline 50 MG Tablet PO (05:50)
[2018-02-09] MEDS: predniSONE 10 MG Tablet PO (05:50)
[2018-02-09] MEDS: Levothyroxine 50 MCG Tablet PO (05:50)
[2018-02-09] MEDS: Famotidine 20 MG Tablet PO ×2 (05:50→17:54)
[2018-02-09] MEDS: dilTIAZem CD 240 MG Capsule PO (05:55)
[2018-02-09] MEDS: Menthol/Lanolin/Calamine/Znox 113 GM Tube 1 APPLIC TOPICAL ×2 (05:56→21:04)
[2018-02-09 06:20] VITALS: PULSE 94; RESP 18; O2SAT 96
[2018-02-09] MEDS: Ipratropium/Albuterol Sulfate 3 ML AMPUL.NEB INHALATION ×3 (06:20→19:05)
[2018-02-09] MEDS: Iron Polysaccharide Complex 150 MG CAPSULE PO (07:59)
[2018-02-09] MEDS: Calcium Carb/Vitamin D 1 TABLET Tablet PO ×3 (07:59→17:54)
[2018-02-09] MEDS: Magnesium Oxide 400 MG Tablet PO (07:59)
--- NOTE | 2018-02-09 10:43 | CASEMGMT ---
Plan of care meeting. Resident present as well as resident daughter and granddaughter. No discharge date set at this time. Resident to continue with further care and treatment on the Transitional Care Unit at this time. Resident plans to discharge home with spouse at time of discharge. Resident with a next insurance update due on 02/11/18 and aware that continued stay is not guaranteed. Support given. Will continue to follow. Viki MULLINS, ASSEMBLER CRIMPER
--- NOTE | 2018-02-09 11:26 | NURSING ---
Pt's c/o BIpap mask not fitting correctly, RT called and made aware.
[2018-02-09 12:35] VITALS: PULSE 89; RESP 16
[2018-02-09 15:42] VITALS: BP 139/65; PULSE 86; RESP 16; TEMP 36.7; O2SAT 96
[2018-02-09] MEDS: Senna/Docusate Sodium 1 Tablet PO (17:54)
[2018-02-09] MEDS: Montelukast 10 MG Tablet PO (17:54)
[2018-02-09] MEDS: Rivaroxaban 20 MG Tablet PO (17:54)
[2018-02-09 19:05] VITALS: PULSE 80; RESP 16
[2018-02-09] MEDS: traZODone 100 MG Tablet PO (21:04)
[2018-02-09 21:10] VITALS: PULSE 88; RESP 12; RESP 21; O2SAT 96
[2018-02-10] VITALS (9 sets, daily range): BP systolic 119; BP diastolic 72; PULSE 72–94; RESP 12–20; TEMP 36.3; O2SAT 94–96
[2018-02-10] MEDS: Ipratropium/Albuterol Sulfate 3 ML AMPUL.NEB INHALATION ×3 (06:27→18:42)
[2018-02-10] MEDS: busPIRone 5 MG Tablet PO ×3 (06:39→21:18)
[2018-02-10] MEDS: Menthol/Lanolin/Calamine/Znox 113 GM Tube 1 APPLIC TOPICAL ×2 (06:40→21:17)
[2018-02-10] MEDS: Levothyroxine 50 MCG Tablet PO (06:41)
[2018-02-10] MEDS: Sertraline 50 MG Tablet PO (06:41)
[2018-02-10] MEDS: Senna/Docusate Sodium 1 Tablet PO (06:41)
[2018-02-10] MEDS: predniSONE 10 MG Tablet PO (06:41)
[2018-02-10] MEDS: dilTIAZem CD 240 MG Capsule PO (06:41)
[2018-02-10] MEDS: Polyethylene Glycol 3350 17 GM PACKET PO (06:41)
[2018-02-10] MEDS: Famotidine 20 MG Tablet PO ×2 (06:41→17:34)
[2018-02-10] MEDS: Magnesium Oxide 400 MG Tablet PO (08:23)
[2018-02-10] MEDS: Iron Polysaccharide Complex 150 MG CAPSULE PO (08:24)
[2018-02-10] MEDS: Calcium Carb/Vitamin D 1 TABLET Tablet PO ×3 (08:24→17:34)
[2018-02-10] MEDS: Alendronate Sodium 70 MG Tablet PO (08:26)
[2018-02-10] MEDS: Montelukast 10 MG Tablet PO (17:34)
[2018-02-10] MEDS: Rivaroxaban 20 MG Tablet PO (17:34)
[2018-02-10] MEDS: traZODone 100 MG Tablet PO (21:18)
[2018-02-11] VITALS (8 sets, daily range): BP systolic 103; BP diastolic 54; PULSE 77–103; RESP 12–20; TEMP 36.8; O2SAT 3–99
[2018-02-11] MEDS: dilTIAZem CD 240 MG Capsule PO (06:01)
[2018-02-11] MEDS: Famotidine 20 MG Tablet PO ×2 (06:01→17:25)
[2018-02-11] MEDS: Senna/Docusate Sodium 1 Tablet PO (06:01)
[2018-02-11] MEDS: Levothyroxine 50 MCG Tablet PO (06:01)
[2018-02-11] MEDS: Sertraline 50 MG Tablet PO (06:01)
[2018-02-11] MEDS: predniSONE 10 MG Tablet PO (06:02)
[2018-02-11] MEDS: Polyethylene Glycol 3350 17 GM PACKET PO (06:02)
[2018-02-11] MEDS: busPIRone 5 MG Tablet PO ×3 (06:03→21:22)
[2018-02-11] MEDS: Menthol/Lanolin/Calamine/Znox 113 GM Tube 1 APPLIC TOPICAL ×2 (06:03→21:23)
[2018-02-11] MEDS: Ipratropium/Albuterol Sulfate 3 ML AMPUL.NEB INHALATION ×3 (07:20→18:30)
[2018-02-11] MEDS: Magnesium Oxide 400 MG Tablet PO (07:44)
[2018-02-11] MEDS: Calcium Carb/Vitamin D 1 TABLET Tablet PO ×3 (07:44→17:25)
[2018-02-11] MEDS: Iron Polysaccharide Complex 150 MG CAPSULE PO (07:44)
--- NOTE | 2018-02-11 11:18 | CASEMGMT ---
Insurance Clinical information sent. Pending continued stay approval at this time. Auth#[id number] Viik MULLINS, BARBER STYLIST
--- NOTE | 2018-02-11 14:23 | CASEMGMT ---
Brief interview for mental status (BIMS) and resident mood interview completed on this day. BIMS score 08/04. PHQ-9 score 02/13.
--- NOTE | 2018-02-11 14:26 | CASEMGMT ---
Insurance Continued stay approved with next update due on 02/16/18. Auth#[id number] Viki MULLINS, CLARITY DEVELOPER
[2018-02-11] MEDS: Montelukast 10 MG Tablet PO (17:25)
[2018-02-11] MEDS: Rivaroxaban 20 MG Tablet PO (17:25)
[2018-02-11] MEDS: traZODone 100 MG Tablet PO (21:22)
[2018-02-12] MEDS: dilTIAZem CD 240 MG Capsule PO (06:02)
[2018-02-12] MEDS: busPIRone 5 MG Tablet PO ×3 (06:02→21:45)
[2018-02-12] MEDS: Famotidine 20 MG Tablet PO ×2 (06:02→16:44)
[2018-02-12] MEDS: Sertraline 50 MG Tablet PO (06:02)
[2018-02-12] MEDS: predniSONE 10 MG Tablet PO (06:02)
[2018-02-12] MEDS: Menthol/Lanolin/Calamine/Znox 113 GM Tube 1 APPLIC TOPICAL ×2 (06:02→21:45)
[2018-02-12] MEDS: Levothyroxine 50 MCG Tablet PO (06:02)
[2018-02-12] MEDS: Senna/Docusate Sodium 1 Tablet PO (06:02)
[2018-02-12] MEDS: Polyethylene Glycol 3350 17 GM PACKET PO (06:03)
[2018-02-12 07:10] LABS: Absolute Lymphocyte Count 0.97 X10^3/ul (0.83-4.51); Absolute Neutrophil Count 6.9 X10^3/uL (2.0-7.7); Basophil# 0.01 X10^3/uL; Basophil% 0.1 % (0-1); Eosinophils% 4.2 % (0-5); Hematocrit 35.8 % (37-47); Hemoglobin 10.8 g/dl (12.0-15.0); Lymphocyte # 0.97 X10^3/ul (4.0); Lymphocyte % 10.1 % (19-41); Mean Corp Hgb Conc 30.2 g/gl (32-36); Mean Corpuscular Hgb 29.3 pg (27.0-32.0); Mean Platelet Vol. 10.4 fl (6.2-12.0); Monocyte# 1.13 X10^3/uL; Monocyte% 11.8 % (0-10); Neutrophil # 6.86 X10^3/uL (2.7-7.7); Neutrophil % 71.7 % (47-70); Platelet Count 261 K/mm3 (150-450); RBC Distribution Width CV 15.7 % (11.6-14.6); RBC Distribution Width SD 54.3 fl (35.1-43.9); Red Blood Count 3.69 M/mm3 (4.2-5.4); White Blood Count 9.6 K/mm3 (4.4-11.0)
[2018-02-12 07:11] LABS: POSITIVE COUNT YES; POSITIVE DIFFERENTIAL NO; POSITIVE MORPHOLOGY YES
[2018-02-12 07:44] LABS: Anion Gap 2 (5-15); BUN 17 mg/dL (7-18); BUN/Creat Ratio 38.5 RATIO (10-20); Calcium,Total 9.4 mg/dL (8.5-10.1); Chloride 101 mmol/L (98-107); Creatinine, Serum 0.44 mg/dL (0.55-1.02); EST Glomerular Filtration Rate 147 mL/min (>60); Est Glom Filt Rate - Afr Amer 178 mL/min (>60); Estimated Creatinine Clearance 43.52 ml/min; Glucose 88 mg/dL (74-106); Potassium 3.9 mmol/L (3.5-5.1); Sodium Level 139 mmol/L (136-145)
[2018-02-12] MEDS: Ipratropium/Albuterol Sulfate 3 ML AMPUL.NEB INHALATION ×3 (07:45→18:32)
[2018-02-12] MEDS: Calcium Carb/Vitamin D 1 TABLET Tablet PO ×3 (08:27→16:44)
[2018-02-12] MEDS: Iron Polysaccharide Complex 150 MG CAPSULE PO (08:27)
[2018-02-12] MEDS: Magnesium Oxide 400 MG Tablet PO (08:27)
[2018-02-12 08:53] VITALS: PULSE 89; RESP 21
[2018-02-12] MEDS: Tuberculin,Purif.prot.deriv. 50 TU/ML Vial 5 ML ID (10:51)
[2018-02-12 12:50] VITALS: PULSE 83; RESP 17
[2018-02-12 15:40] VITALS: BP 126/67; PULSE 85; RESP 22; TEMP 36.4; O2SAT 93
[2018-02-12] MEDS: Montelukast 10 MG Tablet PO (16:44)
[2018-02-12] MEDS: Rivaroxaban 20 MG Tablet PO (16:44)
--- NOTE | 2018-02-12 17:02 | NURSING ---
Occult blood reviewed by Dr. Stokes, NO to recheck H&H Wednesday.
[2018-02-12 18:32] VITALS: PULSE 89; RESP 18; O2SAT 96
[2018-02-12 20:27] VITALS: PULSE 74; RESP 18; O2SAT 97
[2018-02-12] MEDS: traZODone 100 MG Tablet PO (21:46)
[2018-02-12 22:46] VITALS: PULSE 84; RESP 12; RESP 14; O2SAT 96
[2018-02-13] VITALS (8 sets, daily range): BP systolic 110; BP diastolic 58; PULSE 77–92; RESP 12–25; TEMP 36.4; O2SAT 94–97
[2018-02-13] MEDS: Menthol/Lanolin/Calamine/Znox 113 GM Tube 1 APPLIC TOPICAL ×2 (05:33→21:54)
[2018-02-13] MEDS: Levothyroxine 50 MCG Tablet PO (05:33)
[2018-02-13] MEDS: dilTIAZem CD 240 MG Capsule PO (05:34)
[2018-02-13] MEDS: Famotidine 20 MG Tablet PO ×2 (05:34→17:18)
[2018-02-13] MEDS: busPIRone 5 MG Tablet PO ×3 (05:34→21:55)
[2018-02-13] MEDS: Senna/Docusate Sodium 1 Tablet PO ×2 (05:34→17:18)
[2018-02-13] MEDS: predniSONE 10 MG Tablet PO (05:35)
[2018-02-13] MEDS: Sertraline 50 MG Tablet PO (05:36)
[2018-02-13] MEDS: Magnesium Oxide 400 MG Tablet PO (08:22)
[2018-02-13] MEDS: Iron Polysaccharide Complex 150 MG CAPSULE PO (08:22)
[2018-02-13] MEDS: Calcium Carb/Vitamin D 1 TABLET Tablet PO ×3 (08:23→17:18)
[2018-02-13] MEDS: Ipratropium/Albuterol Sulfate 3 ML AMPUL.NEB INHALATION ×2 (12:15→18:45)
[2018-02-13] MEDS: Montelukast 10 MG Tablet PO (17:17)
[2018-02-13] MEDS: Rivaroxaban 15 MG Tablet PO (17:18)
[2018-02-13] MEDS: traZODone 100 MG Tablet PO (21:55)
[2018-02-14] VITALS (7 sets, daily range): BP systolic 127; BP diastolic 56; PULSE 73–86; RESP 12–25; TEMP 36.2; O2SAT 97–99
[2018-02-14] MEDS: Menthol/Lanolin/Calamine/Znox 113 GM Tube 1 APPLIC TOPICAL ×2 (05:32→21:24)
[2018-02-14] MEDS: busPIRone 5 MG Tablet PO ×3 (05:33→21:25)
[2018-02-14] MEDS: dilTIAZem CD 240 MG Capsule PO (05:33)
[2018-02-14] MEDS: Famotidine 20 MG Tablet PO ×2 (05:35→17:14)
[2018-02-14] MEDS: predniSONE 10 MG Tablet PO (05:35)
[2018-02-14] MEDS: Levothyroxine 50 MCG Tablet PO (05:36)
[2018-02-14] MEDS: Senna/Docusate Sodium 1 Tablet PO ×2 (05:36→17:14)
[2018-02-14] MEDS: Sertraline 50 MG Tablet PO (05:37)
[2018-02-14] MEDS: Ipratropium/Albuterol Sulfate 3 ML AMPUL.NEB INHALATION ×2 (06:37→12:55)
[2018-02-14 07:03] LABS: Hematocrit 35.3 % (37-47); Hemoglobin 10.7 g/dl (12.0-15.0)
[2018-02-14] MEDS: Iron Polysaccharide Complex 150 MG CAPSULE PO (08:28)
[2018-02-14] MEDS: Calcium Carb/Vitamin D 1 TABLET Tablet PO ×3 (08:28→17:13)
[2018-02-14] MEDS: Magnesium Oxide 400 MG Tablet PO (08:28)
[2018-02-14] MEDS: Rivaroxaban 15 MG Tablet PO (17:13)
[2018-02-14] MEDS: Montelukast 10 MG Tablet PO (17:13)
[2018-02-14] MEDS: traZODone 100 MG Tablet PO (21:26)
[2018-02-15] VITALS (9 sets, daily range): BP systolic 116–123; BP diastolic 52–54; PULSE 70–90; RESP 12–18; TEMP 36.2–37.3; O2SAT 94–99
[2018-02-15] MEDS: busPIRone 5 MG Tablet PO ×3 (06:33→20:59)
[2018-02-15] MEDS: Senna/Docusate Sodium 1 Tablet PO ×2 (06:33→17:02)
[2018-02-15] MEDS: Levothyroxine 50 MCG Tablet PO (06:33)
[2018-02-15] MEDS: Sertraline 50 MG Tablet PO (06:33)
[2018-02-15] MEDS: Menthol/Lanolin/Calamine/Znox 113 GM Tube 1 APPLIC TOPICAL ×2 (06:33→20:59)
[2018-02-15] MEDS: Famotidine 20 MG Tablet PO ×2 (06:33→17:02)
[2018-02-15] MEDS: dilTIAZem CD 240 MG Capsule PO (06:33)
[2018-02-15] MEDS: predniSONE 10 MG Tablet PO (06:34)
[2018-02-15] MEDS: Ipratropium/Albuterol Sulfate 3 ML AMPUL.NEB INHALATION ×3 (06:40→19:00)
[2018-02-15] MEDS: Magnesium Oxide 400 MG Tablet PO (08:01)
[2018-02-15] MEDS: Iron Polysaccharide Complex 150 MG CAPSULE PO (08:01)
[2018-02-15] MEDS: Calcium Carb/Vitamin D 1 TABLET Tablet PO ×3 (08:01→17:02)
[2018-02-15 14:03] LABS: Pathologist Review Reviewed
[2018-02-15] MEDS: Rivaroxaban 15 MG Tablet PO (17:02)
[2018-02-15] MEDS: Montelukast 10 MG Tablet PO (17:03)
[2018-02-15] MEDS: traZODone 100 MG Tablet PO (21:01)
[2018-02-16] VITALS (8 sets, daily range): BP systolic 109; BP diastolic 58; PULSE 72–85; RESP 12–20; TEMP 36.7; O2SAT 95–98
[2018-02-16] MEDS: Menthol/Lanolin/Calamine/Znox 113 GM Tube 1 APPLIC TOPICAL ×2 (06:15→21:16)
[2018-02-16] MEDS: predniSONE 10 MG Tablet PO (06:17)
[2018-02-16] MEDS: Senna/Docusate Sodium 1 Tablet PO ×2 (06:17→16:52)
[2018-02-16] MEDS: Sertraline 50 MG Tablet PO (06:17)
[2018-02-16] MEDS: Polyethylene Glycol 3350 17 GM PACKET PO (06:17)
[2018-02-16] MEDS: busPIRone 5 MG Tablet PO ×3 (06:18→21:17)
[2018-02-16] MEDS: Levothyroxine 50 MCG Tablet PO (06:18)
[2018-02-16] MEDS: Famotidine 20 MG Tablet PO ×2 (06:18→16:52)
[2018-02-16] MEDS: dilTIAZem CD 240 MG Capsule PO (06:18)
--- NOTE | 2018-02-16 06:26 | NURSING ---
padding over resident nose bridge changed
[2018-02-16] MEDS: Ipratropium/Albuterol Sulfate 3 ML AMPUL.NEB INHALATION ×3 (07:25→19:07)
[2018-02-16] MEDS: Calcium Carb/Vitamin D 1 TABLET Tablet PO ×3 (07:54→16:52)
[2018-02-16] MEDS: Iron Polysaccharide Complex 150 MG CAPSULE PO (07:55)
[2018-02-16] MEDS: Magnesium Oxide 400 MG Tablet PO (07:55)
--- NOTE | 2018-02-16 15:33 | CASEMGMT ---
Insurance Clinical information faxed. Pending continued stay approval at this time. Auth#[id number] Viki MULLINS, NICKER AND BREAKER
[2018-02-16] MEDS: Montelukast 10 MG Tablet PO (16:52)
[2018-02-16] MEDS: Rivaroxaban 15 MG Tablet PO (16:52)
[2018-02-16] MEDS: traZODone 100 MG Tablet PO (21:17)
[2018-02-17] VITALS (7 sets, daily range): BP systolic 112; BP diastolic 52; PULSE 68–76; RESP 12–18; TEMP 36.7; O2SAT 96–99
[2018-02-17] MEDS: dilTIAZem CD 240 MG Capsule PO (06:11)
[2018-02-17] MEDS: busPIRone 5 MG Tablet PO ×3 (06:11→21:02)
[2018-02-17] MEDS: Famotidine 20 MG Tablet PO ×2 (06:11→16:58)
[2018-02-17] MEDS: Menthol/Lanolin/Calamine/Znox 113 GM Tube 1 APPLIC TOPICAL ×2 (06:11→21:02)
[2018-02-17] MEDS: Sertraline 50 MG Tablet PO (06:12)
[2018-02-17] MEDS: Levothyroxine 50 MCG Tablet PO (06:12)
[2018-02-17] MEDS: Senna/Docusate Sodium 1 Tablet PO ×2 (06:12→16:58)
[2018-02-17] MEDS: predniSONE 10 MG Tablet PO (06:12)
[2018-02-17] MEDS: Ipratropium/Albuterol Sulfate 3 ML AMPUL.NEB INHALATION ×2 (07:32→19:35)
[2018-02-17] MEDS: Magnesium Oxide 400 MG Tablet PO (08:36)
[2018-02-17] MEDS: Calcium Carb/Vitamin D 1 TABLET Tablet PO ×3 (08:36→16:58)
[2018-02-17] MEDS: Alendronate Sodium 70 MG Tablet PO (08:36)
[2018-02-17] MEDS: Iron Polysaccharide Complex 150 MG CAPSULE PO (08:36)
--- NOTE | 2018-02-17 11:58 | CASEMGMT ---
Brief interview for mental status (BIMS) and resident mood interview completed on this day. BIMS score 09/03. PHQ-9 score 12/14.
--- NOTE | 2018-02-17 11:58 | CASEMGMT ---
Insurance Continued stay denied with last cover day being 02/19/18 and resident to discharge or financial responsibility to begin on 02/20/18. Auth#[id number] Viki MULLINS, HEALTH UNIT SUPERVISOR
--- NOTE | 2018-02-17 13:57 | MDS.RN ---
Information for the mds was obtained from review of the clinical record, interview of resident, staff, and direct observation of resident's care.
[2018-02-17] MEDS: Albuterol 2.5 MG/3 ML VIAL.NEB. INHALATION (15:57)
--- NOTE | 2018-02-17 16:14 | CASEMGMT ---
Social Work Spoke with resident and resident family. This health and social care teacher communicating that continued stay has been denied by insurance with a last cover day of 02/19/18 and resident to discharge or financial responsibility to begin on 02/20/18. Resident is choosing to discharge on 02/20/18 to home with spouse. This socia worker communicating that physical and occupational therapy are recommending for resident to continue with services within the home. Resident is agreeable to recommendation and requesting for home health services to be set up through [facility] ([facility]). Resident reporting to have all needed durable medical equipment already set up within the home. Resident family to provide transportation home for resident at time of discharge. Support given. [facility] This health and social care teacher making referral for physical and occupational therapy. Order to be completed. Proposed discharge date: 02/20/18 PLAN: Discharge home with spouse and home health services. Viki MULLINS, MUSHROOM PICKER
--- NOTE | 2018-02-17 16:46 | PCM.DC ---
- Discharge Diagnoses Current Active Problems: Current Active and Chronic Problems (Last Reviewed 12/03/17 @ 10:29 by Aj Gray MD) Shortness of breath (Acute) Weakness (Acute) Human metapneumovirus (hMPV) pneumonia (Acute) Anxiety (Chronic) Iron deficiency anemia (Chronic) Depression (Chronic) GERD (gastroesophageal reflux disease) (Chronic) Hypokalemia (Chronic) You will use the following diet at home:: No restrictions, Regular Your food should be the consistency of: Regular Your liquids should be the consistency of: Regular/Thin Discharge Activity: Return to Normal Activity, May Shower, Use Walker Weight Bearing Status: Weight bearing as tolerated Call your doctor if you observe: Fever of 101 or Higher, Inability to urinate, Inability to have a bowel movement, Shortness of breath, Chest pain, Uncontrolled pain Allergies/Adverse Reactions: Allergies amoxicillin trihydrate [From Augmentin] Allergy (Verified 12/03/17 09:51) Rash gluten Allergy (Verified 12/03/17 09:51) Other potassium clavulanate [From Augmentin] Allergy (Verified 12/03/17 09:51) Rash risperidone [From Risperdal] Adverse Reaction (Severe, Verified 12/03/17 09:51) Other GOES CRAZY HALLICINATE esomeprazole magnesium [From Nexium] Adverse Reaction (Verified 12/03/17 09:51) Unknown furosemide [From Lasix] Adverse Reaction (Verified 12/03/17 09:51) CONFUSION CONFUSION Sulfa (Sulfonamide Antibiotics) Adverse Reaction (Verified 12/03/17 09:51) CONFUSION CONFUSION sulfamethoxazole [From Bactrim] Adverse Reaction (Verified 12/03/17 09:51) CONFUSION CONFUSION trimethoprim [From Bactrim] Adverse Reaction (Verified 12/03/17 09:51) CONFUSION CONFUSION Medications to take at Discharge Levothyroxine [Synthroid] 50 mcg PO DAILY 07/12/17 busPIRone [Buspar] 5 mg PO TID 07/23/17 Albuterol Aerosols [Ventolin Aerosols] 2.5 mg INHALATION Q2H PRN PRN vial.neb. 09/13/17 Sertraline HCl [Zoloft] 50 mg PO DAILY 09/13/17 Famotidine [Pepcid] 20 mg PO BID #60 tab 09/24/17 roflumilast 500 mcg tablet 500 mcg PO QDAY 12/03/17 Calcium Carb/Vitamin D [Os-Bud 500MG + D] 1 tablet PO TIDCM 01/26/18 Fluticasone/Vilanterol [Breo Ellipta 200-25 Mcg INH] 1 puff INHALATION DAILY 01/26/18 Iron Polysaccharide Complex [Ferrex 150] 150 mg PO DAILYCM 01/26/18 Menthol/Lanolin/Calamine/Znox [Calmoseptine Ointment] 1 applic TOPICAL 0600,2200 01/26/18 Roflumilast [Daliresp] 1 tab PO DAILY 01/26/18 Umeclidinium [place] [Incruse Ellipta] 1 puff INHALATION DAILY 01/26/18 traZODone [Desyrel] 100 mg PO QHS 01/26/18 Ipratropium/Albuterol Sulfate [Duoneb] 3 ml INHALATION Q6HWA.RT 02/04/18 Magnesium Oxide [Mag-Ox 400] 400 mg PO DAILY@0800 02/04/18 Potassium Chloride 20 meq PO DAILY@0800 02/04/18 Acetaminophen [Tylenol] 1,000 mg PO Q8H PRN PRN tablet 02/17/18 Alendronate Sodium [Fosamax] 70 mg PO Q7D@0700 #4 tab 02/17/18 Cyclobenzaprine [Flexeril] 5 mg PO TID PRN PRN #42 tab 02/17/18 Diltiazem CD [Cardizem CD] 240 mg PO DAILY #30 cap 02/17/18 Hydrocortisone [Anusol Hc] 25 mg RECTAL TID PRN PRN #90 suppos. 02/17/18 Montelukast [Singulair] 10 mg PO DAILY@1700 #30 tab 02/17/18 Rivaroxaban [Xarelto] 15 mg PO DINNER #30 tab 02/17/18 The following prescriptions were given: Alendronate Sodium [Fosamax] 70 mg PO Q7D@0700 #4 tab Cyclobenzaprine [Flexeril] 5 mg PO TID PRN PRN #42 tab PRN Reason: BACK SPASM Diltiazem CD [Cardizem CD] 240 mg PO DAILY #30 cap Hydrocortisone [Anusol Hc] 25 mg RECTAL TID PRN PRN #90 suppos. PRN Reason: hemmorhoid pain Montelukast [Singulair] 10 mg PO DAILY@1700 #30 tab Rivaroxaban [Xarelto] 15 mg PO DINNER #30 tab Primary Care Physician: Alexey Herman MD [Primary Care Provider] - Please follow up with your Primary Care Physician in: 1 week. Please Follow Up With: Dr King When: 1-2 weeks Please Follow Up With: Dr. Gray When: june Discharge Date: 02/20/18
--- NOTE | 2018-02-17 16:49 | DS.PCM_ITS ---
Discharge Date and Diagnosis - Problem List Patient Problems: Active and Suspected Problems (Last Reviewed 12/03/17 @ 10:29 by Aj Gray MD ) Shortness of breath (Acute) Weakness (Acute) Human metapneumovirus (hMPV) pneumonia (Acute) Date of Admission: 02/04/18 Date of Discharge: 02/20/18 - Primary Discharge Diagnosis Active and Suspected Problems (Last Reviewed 12/03/17 @ 10:29 by Aj Gray MD ) Shortness of breath (Acute) Weakness (Acute) Human metapneumovirus (hMPV) pneumonia (Acute) - Secondary Discharge Diagnosis Chronic Problems (Last Reviewed 12/03/17 @ 10:29 by Aj Gray MD) Normochromic normocytic anemia (Chronic) Iron deficiency (Chronic) Osteoporosis (Chronic) Vertebral compression fracture (Chronic) History of malnutrition (Chronic) Restless leg syndrome (Chronic) Hypothyroidism (Chronic) Anxiety and depression (Chronic) Insomnia (Chronic) Hypomagnesemia (Chronic) Pulmonary fibrosis (Chronic) Atrial fibrillation (Chronic) Anxiety (Chronic) Iron deficiency anemia (Chronic) Depression (Chronic) GERD (gastroesophageal reflux disease) (Chronic) Hypokalemia (Chronic) Paroxysmal atrial fibrillation (Chronic) COPD (chronic obstructive pulmonary disease) (Chronic) Chronic respiratory failure with hypoxia (Chronic) Hospital Course and Treatment Imaging Results: 02/04/18 21:02 Diet: Gluten-Free Food consistency:: Regular Liquid Consistency:: Regular/Thin Is pt able to select menu?: Yes Operations: None Procedures: None Summary of Care Provided: The patient is a 77 year old Female with below past medical history with below past medical history significant for stage 4 COPD, hospitalized for acute respiratory failure secondary to human metapneumovirus pneumonia, admitted to TCU with debility, here for rehabilitation, strengthening, prior to discharge home with spouse. Discharge home with spouse, and Home Health Services. Discharge Diet: No Restrictions Discharge Activity: Return to Normal Activity, May Shower, Use Walker Weight Bearing Status: Weight bearing as tolerated Call your doctor if you observe: Fever of 101 or Higher, Inability to urinate, Inability to have a bowel movement, Shortness of breath, Chest pain, Uncontrolled pain Home Medications: Medications to take at Discharge Levothyroxine [Synthroid] 50 mcg PO DAILY 07/12/17 busPIRone [Buspar] 5 mg PO TID 07/23/17 Albuterol Aerosols [Ventolin Aerosols] 2.5 mg INHALATION Q2H PRN PRN vial.neb. 09/13/17 Sertraline HCl [Zoloft] 50 mg PO DAILY 09/13/17 Famotidine [Pepcid] 20 mg PO BID #60 tab 09/24/17 roflumilast 500 mcg tablet 500 mcg PO QDAY 12/03/17 Calcium Carb/Vitamin D [Os-Bud 500MG + D] 1 tablet PO TIDCM 01/26/18 Fluticasone/Vilanterol [Breo Ellipta 200-25 Mcg INH] 1 puff INHALATION DAILY 06/07 Iron Polysaccharide Complex [Ferrex 150] 150 mg PO DAILYCM 01/26/18 Menthol/Lanolin/Calamine/Znox [Calmoseptine Ointment] 1 applic TOPICAL 0600, 2200 01/26/18 Roflumilast [Daliresp] 1 tab PO DAILY 01/26/18 Umeclidinium [place] [Incruse Ellipta] 1 puff INHALATION DAILY 01/26/18 traZODone [Desyrel] 100 mg PO QHS 01/26/18 Ipratropium/Albuterol Sulfate [Duoneb] 3 ml INHALATION Q6HWA.RT 02/04/18 Magnesium Oxide [Mag-Ox 400] 400 mg PO DAILY@0800 02/04/18 Potassium Chloride 20 meq PO DAILY@0800 02/04/18 Acetaminophen [Tylenol] 1,000 mg PO Q8H PRN PRN tablet 02/17/18 Alendronate Sodium [Fosamax] 70 mg PO Q7D@0700 #4 tab 02/17/18 Cyclobenzaprine [Flexeril] 5 mg PO TID PRN PRN #42 tab 02/17/18 Diltiazem CD [Cardizem CD] 240 mg PO DAILY #30 cap 02/17/18 Hydrocortisone [Anusol Hc] 25 mg RECTAL TID PRN PRN #90 suppos. 02/17/18 Montelukast [Singulair] 10 mg PO DAILY@1700 #30 tab 02/17/18 Rivaroxaban [Xarelto] 15 mg PO DINNER #30 tab 02/17/18 Following Prescrptions Were Given to Patient: Alendronate Sodium [Fosamax] 70 mg PO Q7D@0700 #4 tab Cyclobenzaprine [Flexeril] 5 mg PO TID PRN PRN #42 tab PRN Reason: BACK SPASM Diltiazem CD [Cardizem CD] 240 mg PO DAILY #30 cap Hydrocortisone [Anusol Hc] 25 mg RECTAL TID PRN PRN #90 suppos. PRN Reason: hemmorhoid pain Montelukast [Singulair] 10 mg PO DAILY@1700 #30 tab Rivaroxaban [Xarelto] 15 mg PO DINNER #30 tab Primary Care Physician: Alexey Herman MD [Primary Care Provider] - Please follow up with your Primary Care Physician in: 1 week. Please Follow Up With: Dr King When: 1-2 weeks Please Follow Up With: Dr. Gray When: june Disposition: Home with Home Health Minutes spent on discharge:: 35 Patient Condition:: Stable Medical Necessity - Tobacco Use Smoking Status: Former smoker Tobacco Use: Non-smoker Meaningful Use Info Meaningful Use Diagnoses (Choose all that apply): None applicable
--- NOTE | 2018-02-17 16:49 | HHNOTE_ITS ---
Home Health Note - Plan Overview of reason of hospitalization: The patient is a 77 year old Female with below past medical history with below past medical history significant for stage 4 COPD, hospitalized for acute respiratory failure secondary to human metapneumovirus pneumonia, admitted to TCU with debility, here for rehabilitation, strengthening, prior to discharge home with spouse. Discharge home with spouse, and Home Health Services. Problems: Patient was seen for (Last Reviewed 12/03/17 @ 10:29 by Aj Gray MD) Shortness of breath (Acute) Weakness (Acute) Human metapneumovirus (hMPV) pneumonia (Acute) Anxiety (Chronic) Iron deficiency anemia (Chronic) Depression (Chronic) GERD (gastroesophageal reflux disease) (Chronic) Hypokalemia (Chronic) Complete List of Medical Problems (Last Reviewed 12/03/17 @ 10:29 by Aj Gray MD) CAP (community acquired pneumonia) (Acute) COPD with acute exacerbation (Acute) Normochromic normocytic anemia (Chronic) Iron deficiency (Chronic) Osteoporosis (Chronic) Vertebral compression fracture (Chronic) History of malnutrition (Chronic) Restless leg syndrome (Chronic) Hypothyroidism (Chronic) Anxiety and depression (Chronic) Insomnia (Chronic) Hypomagnesemia (Chronic) Pulmonary fibrosis (Chronic) Atrial fibrillation (Chronic) Shortness of breath (Acute) Weakness (Acute) Human metapneumovirus (hMPV) pneumonia (Acute) Anxiety (Chronic) Iron deficiency anemia (Chronic) Depression (Chronic) GERD (gastroesophageal reflux disease) (Chronic) Hypokalemia (Chronic) Paroxysmal atrial fibrillation (Chronic) COPD (chronic obstructive pulmonary disease) (Chronic) Chronic respiratory failure with hypoxia (Chronic) - Requirements and Reasons Disciplines Needed/Ordered: Physical Therapy Reason for Disciplines: Gait Training, Stair Training, Fall Prevention, Home Safety/Equipment Instruction, Balance and/or Posture Training, Transfer Training Related To: Limited/Poor Endurance, Shortness of Breath with Activity, Physical Impairments, Unsteady Gait/Balance, Fall Risk Patient is unable to leave the home: Without Aid of Supportive Devices (crutches , cane, wheelchair, walker), Without the assistance of another person - Additional Disciplines Additional Disciplines Needed/Ordered: Occupational Therapy
[2018-02-17] MEDS: Montelukast 10 MG Tablet PO (16:58)
[2018-02-17] MEDS: Rivaroxaban 15 MG Tablet PO (16:58)
[2018-02-17] MEDS: traZODone 100 MG Tablet PO (22:37)
[2018-02-18] VITALS (7 sets, daily range): BP systolic 116–120; BP diastolic 60–66; PULSE 60–99; RESP 12–18; TEMP 36.9; O2SAT 97–99
[2018-02-18] MEDS: Polyethylene Glycol 3350 17 GM PACKET PO (05:32)
[2018-02-18] MEDS: Senna/Docusate Sodium 1 Tablet PO ×2 (05:32→17:14)
[2018-02-18] MEDS: Menthol/Lanolin/Calamine/Znox 113 GM Tube 1 APPLIC TOPICAL ×2 (05:33→22:14)
[2018-02-18] MEDS: dilTIAZem CD 240 MG Capsule PO (05:33)
[2018-02-18] MEDS: Levothyroxine 50 MCG Tablet PO (05:33)
[2018-02-18] MEDS: Sertraline 50 MG Tablet PO (05:33)
[2018-02-18] MEDS: Famotidine 20 MG Tablet PO ×2 (05:33→17:14)
[2018-02-18] MEDS: busPIRone 5 MG Tablet PO ×3 (05:33→22:14)
[2018-02-18] MEDS: Ipratropium/Albuterol Sulfate 3 ML AMPUL.NEB INHALATION ×3 (07:13→18:35)
[2018-02-18] MEDS: Magnesium Oxide 400 MG Tablet PO (07:37)
[2018-02-18] MEDS: Iron Polysaccharide Complex 150 MG CAPSULE PO (07:37)
[2018-02-18] MEDS: Calcium Carb/Vitamin D 1 TABLET Tablet PO ×3 (07:37→17:14)
[2018-02-18] MEDS: Montelukast 10 MG Tablet PO (17:14)
[2018-02-18] MEDS: Rivaroxaban 15 MG Tablet PO (17:14)
[2018-02-18] MEDS: traZODone 100 MG Tablet PO (22:15)
[2018-02-19] VITALS (8 sets, daily range): BP systolic 104; BP diastolic 56; PULSE 72–98; RESP 12–22; TEMP 36.4; O2SAT 96–99
[2018-02-19] MEDS: Famotidine 20 MG Tablet PO ×2 (06:33→16:41)
[2018-02-19] MEDS: Sertraline 50 MG Tablet PO (06:33)
[2018-02-19] MEDS: Levothyroxine 50 MCG Tablet PO (06:33)
[2018-02-19] MEDS: Menthol/Lanolin/Calamine/Znox 113 GM Tube 1 APPLIC TOPICAL ×2 (06:33→22:01)
[2018-02-19] MEDS: busPIRone 5 MG Tablet PO ×3 (06:33→22:01)
[2018-02-19] MEDS: Senna/Docusate Sodium 1 Tablet PO (06:33)
[2018-02-19] MEDS: dilTIAZem CD 240 MG Capsule PO (06:33)
[2018-02-19] MEDS: Polyethylene Glycol 3350 17 GM PACKET PO (06:34)
[2018-02-19] MEDS: Ipratropium/Albuterol Sulfate 3 ML AMPUL.NEB INHALATION ×3 (06:35→19:06)
[2018-02-19] MEDS: Magnesium Oxide 400 MG Tablet PO (07:45)
[2018-02-19] MEDS: Calcium Carb/Vitamin D 1 TABLET Tablet PO ×3 (07:45→16:41)
[2018-02-19] MEDS: Iron Polysaccharide Complex 150 MG CAPSULE PO (07:45)
[2018-02-19] MEDS: Montelukast 10 MG Tablet PO (16:41)
[2018-02-19] MEDS: Rivaroxaban 15 MG Tablet PO (16:41)
[2018-02-19] MEDS: traZODone 100 MG Tablet PO (22:01)
[2018-02-20 02:00] VITALS: PULSE 77; RESP 12; RESP 14; O2SAT 95
[2018-02-20] MEDS: dilTIAZem CD 240 MG Capsule PO (05:39)
[2018-02-20] MEDS: Levothyroxine 50 MCG Tablet PO (05:39)
[2018-02-20] MEDS: busPIRone 5 MG Tablet PO (05:39)
[2018-02-20] MEDS: Calcium Carb/Vitamin D 1 TABLET Tablet PO (05:39)
[2018-02-20] MEDS: Sertraline 50 MG Tablet PO (05:39)
[2018-02-20] MEDS: Famotidine 20 MG Tablet PO (05:40)
[2018-02-20] MEDS: Menthol/Lanolin/Calamine/Znox 113 GM Tube 1 APPLIC TOPICAL (05:41)
[2018-02-20 06:48] VITALS: PULSE 84; RESP 18; O2SAT 98
[2018-02-20] MEDS: Ipratropium/Albuterol Sulfate 3 ML AMPUL.NEB INHALATION (06:48)
[2018-02-20] MEDS: Magnesium Oxide 400 MG Tablet PO (07:33)
[2018-02-20] MEDS: Iron Polysaccharide Complex 150 MG CAPSULE PO (07:33)
[2018-02-20 08:29] VITALS: PULSE 63; RESP 18; O2SAT 98
[2018-02-20 10:22] VITALS: BP 122/60; PULSE 68; RESP 18; TEMP 36.6; O2SAT 98
--- NOTE | 2018-03-02 08:42 | MDS.RN ---
Information for the mds was obtained from review of the clinical record, interview of resident, staff, and direct observation of resident's care.
== END 2018-02-20 10:54 | disposition home health service (06) | DRG 947 ==
PROVIDERS: Admitting Provider Family Medicine Geriatric Medicine; Family Provider Family Medicine; PCP Family Medicine; Visit Provider Family Medicine Geriatric Medicine
DX: R53.81 Other malaise (principal); J12.3 Human metapneumovirus pneumonia; J96.00 Acute respiratory failure, unspecified whether with hypoxia or hypercapnia; J96.11 Chronic respiratory failure with hypoxia; J44.0 Chronic obstructive pulmonary disease with (acute) lower respiratory infection; E44.1 Mild protein-calorie malnutrition; Z68.1 Body mass index [BMI] 19.9 or less, adult; K21.9 Gastro-esophageal reflux disease without esophagitis; G25.81 Restless legs syndrome; E03.9 Hypothyroidism, unspecified; I48.2 Chronic atrial fibrillation; D50.9 Iron deficiency anemia, unspecified; M81.0 Age-related osteoporosis without current pathological fracture; F32.9 Major depressive disorder, single episode, unspecified; F41.9 Anxiety disorder, unspecified; I48.0 Paroxysmal atrial fibrillation; Z87.891 Personal history of nicotine dependence; E87.6 Hypokalemia
CPT/HCPCS: 36415; 80048; 82274; 85014; 85018; 85025; 94003; 94640; 97110; 97116; 97162; 97166; 97530; 97535; 97802

== ENCOUNTER 2018-02-25 17:10 | Emergency (ER) | payer MEDICARE, OTHER, SELFPAY ==
--- NOTE | 2018-02-25 13:03 | EKG12_ITS ---
Test Reason : SOB Blood Pressure : / mmHG Vent. Rate : 070 BPM Atrial Rate : 234 BPM P-R Int : 000 ms QRS Dur : 078 ms QT Int : 364 ms P-R-T Axes : 000 070 069 degrees QTc Int : 393 ms Atrial fibrillation Low voltage QRS Abnormal ECG Confirmed by EMMANUEL MADRID, GUZMAN ([id number]), acquisition editor MARSHA VALDOVINOS ([id number]) on 03/02/2018 5:38:39 PM Referred By: Confirmed By:GUZMAN BENITEZ MD
--- NOTE | 2018-02-25 17:04 | RAD_ITS ---
STUDY: X-RAY CHEST REASON FOR EXAM: Female, 77 years old. Shortness of breath. Weakness. Requires oxygen all the time. TECHNIQUE: PA and lateral views of the chest. COMPARISON: February 01, 2018. FINDINGS: There is hyperinflation of the lungs consistent with chronic obstructive lung disease (COPD). There is continued minimal patchy infiltrate in the lateral right lung base.. There is clearing in the left suprahilar region. There is linear scarring at both lung bases. There is blunting versus fluid in the posterior costophrenic angles. Normal size heart. Normal mediastinum and chris. Normal visualized pulmonary arteries. There is atherosclerotic calcification of the aortic arch with tortuosity. There is demineralization of the osseous structures. Normal visualized ribs, clavicles, and shoulders. There is no demonstrated abnormality of the visualized soft tissue structures of the upper abdomen. RAD/Chest PA and Lateral IMPRESSION: Persistent patchy infiltrate in the right lateral lung base superimposed on COPD.. There is clearing of the left upper lobe. Electronically Signed: Eben Alex DO at 14:26 EDT Tel [phone], Service support ,
--- NOTE | 2018-02-25 17:10 | DT_ITS ---
This patient was seen during an EMR downtime February 21, 2018 - February 28, 2018. This patient may have a combination of paper and electronic documentation or all paper documentation. All documentation is viewable within the e-chart portion of [email or web address] for each patient visit.
[2018-03-01 03:38] LABS: BNP,B-Type NATRIURETIC PEPTIDE 60.1 pg/mL (0-100)
[2018-03-01 03:45] LABS: Anion Gap 4 (5-15); BUN 11 mg/dL (7-18); BUN/Creat Ratio 23.4 RATIO (10-20); Calcium,Total 10.2 mg/dL (8.5-10.1); Chloride 98 mmol/L (98-107); Creatinine, Serum 0.47 mg/dL (0.55-1.02); EST Glomerular Filtration Rate 137 mL/min (>60); Est Glom Filt Rate - Afr Amer 166 mL/min (>60); Glucose 84 mg/dL (74-106); Magnesium 1.9 mg/dL (1.6-2.6); Potassium 3.8 mmol/L (3.5-5.1); Sodium Level 140 mmol/L (136-145)
[2018-03-01 04:00] LABS: Eosinophils% 3.5 % (0-5); Hematocrit 37.5 % (37-47); Hemoglobin 11.6 g/dl (12.0-15.0); Lymphocyte % 14.8 % (19-41); Mean Corp Hgb Conc 30.9 g/gl (32-36); Mean Corpuscular Hgb 30.4 pg (27.0-32.0); Mean Corpuscular Volume 98.4 fL (81-99); Mean Platelet Vol. 9.8 fl (6.2-12.0); Monocyte% 8.5 % (0-10); POSITIVE COUNT NO; POSITIVE DIFFERENTIAL NO; POSITIVE MORPHOLOGY NO; Platelet Count 187 K/mm3 (150-450); RBC Distribution Width CV 17.2 % (11.6-14.6); RBC Distribution Width SD 61.6 fl (35.1-43.9); Red Blood Count 3.81 M/mm3 (4.2-5.4); White Blood Count 4.6 K/mm3 (4.4-11.0)
[2018-03-01 04:01] LABS: Absolute Lymphocyte Count 0.68 X10^3/ul (0.83-4.51); Absolute Neutrophil Count 3.4 X10^3/uL (2.0-7.7); Eosinophil# 0.16 X10^3/uL; Lymphocyte # 0.68 X10^3/ul (4.0); Monocyte# 0.39 X10^3/uL; Neutrophil # 3.37 X10^3/uL (2.7-7.7)
== END 2018-02-25 19:25 | disposition home or self-care (01) ==
LOC: ED 02-26 12:28
PROVIDERS: Emergency Provider Emergency Medicine; Family Provider Family Medicine; PCP Family Medicine
DX: J44.9 Chronic obstructive pulmonary disease, unspecified (principal); R09.02 Hypoxemia; I48.91 Unspecified atrial fibrillation; E03.9 Hypothyroidism, unspecified; E83.42 Hypomagnesemia; K21.9 Gastro-esophageal reflux disease without esophagitis; Z99.81 Dependence on supplemental oxygen; Z79.01 Long term (current) use of anticoagulants; Z79.899 Other long term (current) drug therapy
CPT/HCPCS: 71046; 80048; 83735; 83880; 84484; 85025; 93005; 99284

== ENCOUNTER 2018-04-18 18:56 | Observation (INO) | payer MEDICARE, OTHER, SELFPAY ==
[2018-04-18 18:59] VITALS: BP 117/64; PULSE 79; RESP 18; TEMP 37.6; O2SAT 97; BMI 18.5
--- NOTE | 2018-04-18 19:38 | EKG12_ITS ---
Test Reason : NOSEBLEED Blood Pressure : / mmHG Vent. Rate : 074 BPM Atrial Rate : 267 BPM P-R Int : 000 ms QRS Dur : 086 ms QT Int : 378 ms P-R-T Axes : 000 069 039 degrees QTc Int : 419 ms Atrial fibrillation Low voltage QRS (limb leads) Abnormal ECG Confirmed by LISA MADRID, VICKY ([id number]), marketing editor MARSHA VALDOVINOS ([id number]) on 04/21/2018 9:56:53 AM Referred By: CLOTILDE Confirmed By:VICKY GONZALEZ MD
--- NOTE | 2018-04-18 19:53 | RAD_ITS ---
STUDY: X-RAY CHEST REASON FOR EXAM: Female, 77 years old. Nosebleed, on anticoagulants. TECHNIQUE: Single AP portable view of the chest. COMPARISON: Prior study of 02/25/2018 FINDINGS: There are chronic interstitial fibrotic changes of the lungs. There is hyperinflation of the lungs consistent with COPD. There is a left lower lobe infiltrate and/or atelectasis, new in the interval. There is left costophrenic angle blunting. Normal size heart. Normal mediastinum and chris. Normal visualized pulmonary arteries. There are calcified plaques of the aortic arch. Normal visualized thoracic spine. Normal visualized ribs, clavicles, and shoulders. There is no demonstrated abnormality of the visualized soft tissue structures of the upper abdomen. RAD/Chest 1 View (Portable) IMPRESSION: Chronic interstitial fibrotic changes of the lungs. Hyperinflation of the lungs consistent with COPD. Left lower lobe infiltrate, representing a new interval finding. Calcified plaques of the aortic arch. Electronically Signed: Miles Bishop MD at 20:07 EDT , Service support ,
[2018-04-18 20:01] VITALS: BP 113/53; PULSE 74; RESP 13; O2SAT 96
[2018-04-18 20:18] LABS: Absolute Lymphocyte Count 0.78 X10^3/ul (0.83-4.51); Absolute Neutrophil Count 3.9 X10^3/uL (2.0-7.7); Basophil# 0.02 X10^3/uL; Basophil% 0.4 % (0-1); Eosinophil# 0.36 X10^3/uL; Eosinophils% 6.5 % (0-5); Hematocrit 35.6 % (37-47); Hemoglobin 11.2 g/dl (12.0-15.0); Lymphocyte # 0.78 X10^3/ul (4.0); Lymphocyte % 14.2 % (19-41); Mean Corp Hgb Conc 31.5 g/gl (32-36); Mean Corpuscular Hgb 31.5 pg (27.0-32.0); Mean Corpuscular Volume 100.3 fL (81-99); Mean Platelet Vol. 9.8 fl (6.2-12.0); Monocyte# 0.49 X10^3/uL; Monocyte% 8.9 % (0-10); Neutrophil # 3.85 X10^3/uL (2.7-7.7); Neutrophil % 69.8 % (47-70); Platelet Count 180 K/mm3 (150-450); RBC Distribution Width CV 12.4 % (11.6-14.6); RBC Distribution Width SD 44.5 fl (35.1-43.9); Red Blood Count 3.55 M/mm3 (4.2-5.4); White Blood Count 5.5 K/mm3 (4.4-11.0)
[2018-04-18 20:19] LABS: POSITIVE COUNT NO; POSITIVE DIFFERENTIAL NO; POSITIVE MORPHOLOGY NO
--- NOTE | 2018-04-18 20:30 | ED.VISSUMM ---
- ER Visit Summary Date of Service: 04/18/18 Chief Complaint: Nosebleed, hemoptysis History of Present Illness: The patient is a 77 F presenting with nosebleed tonight. She states over the last several days she has been coughing up bloody sputum. She contacted her construction framer and was put on a Z-[place]. She continues to cough up blood. Complains of shortness of breath which is worse with exertion. Tonight she started to have a nosebleed. She denies any dizziness or syncope. She is on oxygen chronically. She states a week ago she also had blood in her urine. This has since resolved. She is on Xarelto. Physical Examination: Vitals are stable. Temperature 99.6. Alert no acute distress. HEENT exam dried blood right nares, no blood in the posterior pharynx Neck is supple. Lungs are diminished bilaterally. Heart is irregularly irregular Abdomen is soft nontender nondistended. Extremities are unremarkable. Skin is warm and dry. No focal neurologic deficit. Remainder of exam is unremarkable. Emergency Department Course and Treatment: EKG is A. fib rate is 74. CBC normal except hemoglobin 11.2. Chemistries unremarkable other than potassium 3.4. Urinalysis unremarkable. Troponin is negative. Chest x-ray shows a new left lower lobe infiltrate. She was given Rocephin and Zithromax IV. On repeat evaluation she has no active bleeding. Discussed with the hospitalist for admission. Disposition: Admission Impression: Epistaxis, hemoptysis, community acquired pneumonia This note was generated with [employer] dictation software. It may contain incorrect words, spelling, and punctuation that were not noted in review of the chart prior to signing ED Disposition - Plan for ED Patient: Chief Complaint: Nosebleed Referrals: Alexey Herman MD [Primary Care Provider] -
[2018-04-18 20:33] LABS: Anion Gap 2 (5-15); BUN 9 mg/dL (7-18); BUN/Creat Ratio 13.1 RATIO (10-20); Calcium,Total 10.7 mg/dL (8.5-10.1); Chloride 99 mmol/L (98-107); Creatinine, Serum 0.69 mg/dL (0.55-1.02); EST Glomerular Filtration Rate 88 mL/min (>60); Est Glom Filt Rate - Afr Amer 107 mL/min (>60); Estimated Creatinine Clearance 44.21 ml/min; Glucose 106 mg/dL (74-106); Potassium 3.4 mmol/L (3.5-5.1); Sodium Level 139 mmol/L (136-145)
--- NOTE | 2018-04-18 20:34 | ED.DCSUM_ITS ---
- ER Visit Summary Date of Service: 04/18/18 Chief Complaint: Nosebleed, hemoptysis History of Present Illness: The patient is a 77 F presenting with nosebleed tonight. She states over the last several days she has been coughing up bloody sputum. She contacted her telecasting engineer and was put on a Z-[place]. She continues to cough up blood. Complains of shortness of breath which is worse with exertion. Tonight she started to have a nosebleed. She denies any dizziness or syncope. She is on oxygen chronically. She states a week ago she also had blood in her urine. This has since resolved. She is on Xarelto. Physical Examination: Vitals are stable. Temperature 99.6. Alert no acute distress. HEENT exam dried blood right nares, no blood in the posterior pharynx Neck is supple. Lungs are diminished bilaterally. Heart is irregularly irregular Abdomen is soft nontender nondistended. Extremities are unremarkable. Skin is warm and dry. No focal neurologic deficit. Remainder of exam is unremarkable. Emergency Department Course and Treatment: EKG is A. fib rate is 74. CBC normal except hemoglobin 11.2. Chemistries unremarkable other than potassium 3.4. Urinalysis unremarkable. Troponin is negative. Chest x-ray shows a new left lower lobe infiltrate. She was given Rocephin and Zithromax IV. On repeat evaluation she has no active bleeding. Discussed with the hospitalist for admission. Disposition: Admission Impression: Epistaxis, hemoptysis, community acquired pneumonia This note was generated with [employer] dictation software. It may contain incorrect words, spelling, and punctuation that were not noted in review of the chart prior to signing ED Disposition - Plan for ED Patient: Chief Complaint: Nosebleed Referrals: Alexey Herman MD [Primary Care Provider] -
[2018-04-18 20:46] LABS: Bacteria 0 SEEN /hpf (None Seen); Mucous, Urine 0 SEEN /hpf (<or=2+); Red Blood Cells-Urine 0 SEEN /hpf (0-5); White Blood Cells 0 SEEN /hpf (0-5)
[2018-04-18 20:54] LABS: Color, Urine Yellow (Yellow); Glucose, Dipstick Normal (Normal); Ketone-Dipstick Negative (Negative); Leukocyte Esterase-Dipstick Negative /ul (Negative); Nitrite-Dipstick Negative (Negative); Occult Blood-Urine Negative /ul (Negative); Protein-Dipstick Negative (Negative); Urine Bilirubin Dipstick Negative (Negative); Urine Clarity Clear (Clear); Urine Urobilinogen Normal (Normal)
[2018-04-18 21:01] LABS: Squamous Epithelial Cells - UA 0-5 SEEN /hpf (5-10)
--- NOTE | 2018-04-18 21:23 | PCM.HP.STD ---
Problem List (1) Epistaxis Status: Acute (2) CAP (community acquired pneumonia) Status: Acute Qualifiers: Laterality: left Lung location: lower lobe of lung Qualified Code(s): J18.1 - Lobar pneumonia, unspecified organism (3) Iron deficiency Status: Chronic (4) Osteoporosis Status: Chronic (5) History of malnutrition Status: Chronic (6) Restless leg syndrome Status: Chronic (7) Hypothyroidism Status: Chronic (8) Anxiety and depression Status: Chronic (9) Insomnia Status: Chronic (10) Hypomagnesemia Status: Chronic (11) Pulmonary fibrosis Status: Chronic (12) Atrial fibrillation Status: Chronic (13) Shortness of breath Status: Acute (14) Weakness Status: Chronic (15) GERD (gastroesophageal reflux disease) Status: Chronic (16) COPD (chronic obstructive pulmonary disease) Status: Chronic History of Present Illness Date of Admission: 04/18/18 Chief Complaint: shortness of breath, nose bleed The patient is a 77 year old female with a significant past medical history of COPD and paroxysmal atrial fibrillation presents to the er with shortness of breath and a bloody nose. She has been on Xarelto for her atrial fibrillation but has recently complained of hematuria, epistaxis (this evening)and coughing up bloody sputum. Her CXR reveals a Left lower lobe pneumonia. She has recently been on azithromycin by her carry in worker. Bleeding has stopped for now without nasal packing and hemoglobin is 11. She will be admitted for observation and treatment of her pneumonia. Past Medical History Past Medical History (Chronic Problems): Chronic Problems (Last Reviewed 12/03/17 @ 10:29 by Aj Gray MD) Normochromic normocytic anemia (Chronic) Iron deficiency (Chronic) Osteoporosis (Chronic) Vertebral compression fracture (Chronic) History of malnutrition (Chronic) Restless leg syndrome (Chronic) Hypothyroidism (Chronic) Anxiety and depression (Chronic) Insomnia (Chronic) Hypomagnesemia (Chronic) Pulmonary fibrosis (Chronic) Atrial fibrillation (Chronic) Weakness (Chronic) Anxiety (Chronic) Iron deficiency anemia (Chronic) Depression (Chronic) GERD (gastroesophageal reflux disease) (Chronic) Hypokalemia (Chronic) Paroxysmal atrial fibrillation (Chronic) COPD (chronic obstructive pulmonary disease) (Chronic) Chronic respiratory failure with hypoxia (Chronic) Medical History: Medical History (Last Reviewed 12/03/17 @ 10:29 by Aj Gray MD) Paroxysmal atrial fibrillation (Chronic) I48.0 COPD (chronic obstructive pulmonary disease) (Chronic) J44.9 Chronic respiratory failure with hypoxia (Chronic) J96.11 Anxiety F41.9 GERD (gastroesophageal reflux disease) K21.9 Hypothyroidism E03.9 RLS (restless legs syndrome) G25.81 Metabolic encephalopathy (Resolved) G93.41 Allergies amoxicillin trihydrate [From Augmentin] Allergy (Verified 04/18/18 19:00) Rash gluten Allergy (Verified 04/18/18 19:00) Other potassium clavulanate [From Augmentin] Allergy (Verified 04/18/18 19:00) Rash risperidone [From Risperdal] Adverse Reaction (Severe, Verified 04/18/18 19:00) Other GOES CRAZY HALLICINATE esomeprazole magnesium [From Nexium] Adverse Reaction (Verified 04/18/18 19:00) Unknown furosemide [From Lasix] Adverse Reaction (Verified 04/18/18 19:00) CONFUSION CONFUSION Sulfa (Sulfonamide Antibiotics) Adverse Reaction (Verified 04/18/18 19:00) CONFUSION CONFUSION sulfamethoxazole [From Bactrim] Adverse Reaction (Verified 04/18/18 19:00) CONFUSION CONFUSION trimethoprim [From Bactrim] Adverse Reaction (Verified 04/18/18 19:00) CONFUSION CONFUSION Home Medications: Ambulatory Orders Medication Instructions Recorded Levothyroxine [Synthroid] 50 mcg PO DAILY 07/12/17 busPIRone [Buspar] 5 mg PO BID 07/23/17 Albuterol Aerosols [Ventolin 2.5 mg INHALATION Q2H PRN PRN 09/13/17 Aerosols] vial.neb. Sertraline HCl [Zoloft] 50 mg PO DAILY 09/13/17 Famotidine [Pepcid] 20 mg PO BID #60 tab 09/24/17 roflumilast 500 mcg tablet 500 mcg PO QDAY 12/03/17 Calcium Carb/Vitamin D [Os-Bud 1 tablet PO TIDCM 01/26/18 500MG + D] Fluticasone/Vilanterol [Breo 1 puff INHALATION DAILY 01/26/18 Ellipta 200-25 Mcg INH] Iron Polysaccharide Complex 150 mg PO DAILYCM 01/26/18 [Ferrex 150] Umeclidinium [place] [Incruse 1 puff INHALATION DAILY 01/26/18 Ellipta] traZODone [Desyrel] 100 mg PO QHS 01/26/18 Ipratropium/Albuterol Sulfate 3 ml INHALATION Q6HWA.RT 02/04/18 [Duoneb] Magnesium Oxide [Mag-Ox 400] 400 mg PO DAILY@0800 02/04/18 Potassium Chloride 20 meq PO DAILY@0800 02/04/18 Cyclobenzaprine [Flexeril] 5 mg PO TID PRN PRN #42 tab 02/17/18 Montelukast [Singulair] 10 mg PO DAILY@1700 #30 tab 02/17/18 diltiazem CD 240 mg 240 mg PO DAILY #30 cap 03/16/18 capsule,extended release 24 hr rivaroxaban 15 mg tablet 15 mg PO DINNER #30 tab 03/16/18 Surgical History: noncontributory Psychiatric History: Anxiety, Depression UNCLAIMED PROPERTY MANAGER History: No pertinent UNCLAIMED PROPERTY MANAGER history Smoking Status: Former smoker - *Family History Maternal History Items: No pertinent history Paternal History Items: No pertinent history Review of Systems Constitutional: Denies: Chills, Fever, Weight Change HEENT: Reports: Nasal bleeding. Denies: Head Aches, Sinus Congestion, Sinus Drainage Cardiovascular: Denies: Chest Pain, Palpitations Respiratory: Reports: Hemoptysis, Shortness of Breath, Shortness of breath at rest. Denies: Cough, Sputum production Gastrointestinal: Denies: Abdominal Pain, Nausea, Vomiting Genitourinary: Reports: Hematuria. Denies: Dysuria Musculoskeletal: Denies: Joint Pain, Joint Tenderness Skin: Denies: Rash, Wounds Neurological: Denies: Numbness, Tingling, Focal weakness Psychiatric: Denies: Anxiety, Depression, Homicidal Ideations, Suicidal Ideations Hematologic/ Lymphatic: Denies: Easy Bruising, Easy Bleeding VTE Information - Inpt Only VTE Present on Admission: No VTE Mechan Device Prophylaxis: SCD's VTE Pharm Prophylaxis ordered?: No Patient Problems: Active and Suspected Problems (Last Reviewed 12/03/17 @ 10:29 by Aj Gray MD) Epistaxis (Acute) - Physical Exam General: Alert, Oriented x3, Cooperative HEENT: Atraumatic, Normocephalic, - - nasal bleeding has stopped Neck: Supple, No JVD, Negative Carotid Bruits Lungs: Normal air movement, Diminished Cardiovascular: Regular rate, Normal S1, Normal S2, No murmurs, Irregular Rate Abdomen: Bowel Sounds Present, Soft, Non Tender Extremities: Capillary Refill Less than 3 Seconds, Edema - 2+ lwer ext edema Skin: No rashes, No breakdown Musculoskeletal: No Tenderness to Palpation of Joints or Extremities Neurological: Neuro grossly intact Psych/Mental Status: Normal Affect, Appropriate Vital Signs Temp Pulse Resp BP Pulse Ox 99.6 F H 74 13 113/53 L 96 04/18/18 18:59 04/18/18 20:01 04/18/18 20:01 04/18/18 20:01 04/18/18 20:01 Oxygen Flow Rate (L/min) 3 Oxygen Delivery Method Room Air Weight: 129 lb Body Mass Index (BMI) 18.5 Laboratory Tests Past 24 Hrs 04/18/18 04/18/18 04/18/18 19:59 19:59 20:34 WBC 5.5 RBC 3.55 L Hgb 11.2 L Hct 35.6 L MCV 100.3 H MCH 31.5 MCHC 31.5 L RDW 12.4 RDW Differential 44.5 H Plt Count 180 MPV 9.8 Immature Gran % (Auto) 0.200 Neut % (Auto) 69.8 Lymph % (Auto) 14.2 L [place] % (Auto) 8.9 Eos % (Auto) 6.5 H Baso % (Auto) 0.4 Absolute Neuts (auto) 3.9 Absolute Lymphs (auto) 0.78 L Total Counted Not Reportable Sodium 139 Potassium 3.4 L Chloride 99 Carbon Dioxide 38.0 H Anion Gap 2 L BUN 9 Creatinine 0.69 Estim Creat Clear Calc 44.21 Est GFR (MDRD) Af Amer 107 Est GFR (MDRD) Non-Af 88 BUN/Creatinine Ratio 13.1 Glucose 106 Calcium 10.7 H Troponin I < 0.015 Urine Color Yellow Urine Clarity Clear Urine pH 7.0 Ur Specific [place] 1.010 Urine Protein Negative Urine Glucose (UA) Normal Urine Ketones Negative Urine Occult Blood Negative Urine Nitrite Negative Urine Bilirubin Negative Urine Urobilinogen Normal Ur Leukocyte Esterase Negative Urine RBC 0 SEEN Urine WBC 0 SEEN Ur Squamous Epith Cells 0-5 SEEN Urine Bacteria 0 SEEN Urine Mucus 0 SEEN Assessment/Plan All Active Problems (Last Reviewed 12/03/17 @ 10:29 by Aj Gray MD) CAP (community acquired pneumonia) (Acute) COPD with acute exacerbation (Acute) Shortness of breath (Acute) Human metapneumovirus (hMPV) pneumonia (Acute) Epistaxis (Acute) Acute respiratory failure with hypoxia and hypercapnia (Resolved) Atrial fibrillation with rapid ventricular response (Resolved) Healthcare-associated pneumonia (Resolved) Leucocytosis (Resolved) Metabolic alkalosis (Resolved) Metabolic encephalopathy (Resolved) Streptococcal pneumonia (Resolved) Thrush (Resolved) Chronic Problems (Last Reviewed 12/03/17 @ 10:29 by Aj Gray MD) Normochromic normocytic anemia (Chronic) Iron deficiency (Chronic) Osteoporosis (Chronic) Vertebral compression fracture (Chronic) History of malnutrition (Chronic) Restless leg syndrome (Chronic) Hypothyroidism (Chronic) Anxiety and depression (Chronic) Insomnia (Chronic) Hypomagnesemia (Chronic) Pulmonary fibrosis (Chronic) Atrial fibrillation (Chronic) Weakness (Chronic) Anxiety (Chronic) Iron deficiency anemia (Chronic) Depression (Chronic) GERD (gastroesophageal reflux disease) (Chronic) Hypokalemia (Chronic) Paroxysmal atrial fibrillation (Chronic) COPD (chronic obstructive pulmonary disease) (Chronic) Chronic respiratory failure with hypoxia (Chronic) plan - admit to medical surgical floor - IV levaquin 750mg q day - duoneb inh q 4hrs as needed - hold xarelto to discuss with Dr Gray as an outpatient about anticoagualtion strategy - cbc, bmp in am - continue routine home medications - scds for dvt prophylaxis Code Visit OBSV E&M: [id number] Initial observation care L2
[2018-04-18 21:41] VITALS: BP 111/59; PULSE 73; RESP 17; O2SAT 98
[2018-04-18] MEDS: Ceftriaxone 1 GM/50 ML BAG IV (21:41)
[2018-04-18 22:45] VITALS: BP 125/63; PULSE 70; RESP 16; TEMP 36.7; O2SAT 99
[2018-04-18] MEDS: traZODone 100 MG Tablet PO (23:36)
[2018-04-19] VITALS (7 sets, daily range): BP systolic 103–113; BP diastolic 49–58; PULSE 50–91; RESP 16–18; TEMP 36.4–36.9; O2SAT 96–99
[2018-04-19] MEDS: levoFLOXacin IV 750 MG/150 ML BAG 100 MG IV (00:12)
[2018-04-19] MEDS: Levothyroxine 50 MCG Tablet PO (05:28)
[2018-04-19] MEDS: Ipratropium/Albuterol Sulfate 3 ML AMPUL.NEB INHALATION ×3 (07:20→19:33)
[2018-04-19] MEDS: Budesonide Respules 0.5 MG/2 ML AMPUL.NEB. INHALATION ×2 (07:28→19:33)
[2018-04-19] MEDS: Iron Polysaccharide Complex 150 MG CAPSULE PO (08:16)
[2018-04-19] MEDS: Magnesium Oxide 400 MG Tablet PO (08:17)
[2018-04-19] MEDS: Calcium Carb/Vitamin D 1 TABLET Tablet PO ×3 (08:17→16:46)
[2018-04-19] MEDS: busPIRone 5 MG Tablet PO ×2 (08:21→22:43)
[2018-04-19] MEDS: Famotidine 20 MG Tablet PO ×2 (08:21→22:43)
[2018-04-19] MEDS: Sertraline 50 MG Tablet PO (08:21)
[2018-04-19] MEDS: ROFLUMILAST 500 MCG TABLET PO (08:21)
[2018-04-19] MEDS: dilTIAZem CD 240 MG Capsule PO (08:21)
--- NOTE | 2018-04-19 10:53 | PCM.PN.HOSP ---
Patient Problems: Active and Suspected Problems (Last Reviewed 12/03/17 @ 10:29 by Aj Gray MD) Epistaxis (Acute) Subjective: Patient is a 77-year-old female with a history of COPD and paroxysmal atrial fibrillation on Xarelto. She was admitted by the ED on 04/18/2018 with a complaint of shortness of breath and bleeding from her nostrils. Epistasis occurred just on day of admission but also complained that she had been coughing up blood for about 2 weeks prior to admission. She also complained of hematuria. Chest x-ray on admission revealed a left lower lobe pneumonia. Epistasis resolved spontaneously. She was started on IV ceftriaxone and azithromycin for community-acquired pneumonia. Patient seen and examined. Epistasis and coughing up of blood had an recurred since admission. She denied any fever or chills, any chest pain, any shortness of breath, any abdominal pain, any diarrhea vomiting. Hematuria also hadnt recurred. According to her she was supposed to see her farm operator Dr. King today to have a sputum sample analyzed. She was therefore appreciate if Dr. paz consulted. She also denies any history of weight loss, night sweats, exposure to anybody with TB or any recent travel. Vitals/I&O's: Vital Signs Temp Pulse Resp BP Pulse Ox 97.8 F 75 18 105/54 L 97 04/19/18 05:20 04/19/18 07:20 04/19/18 07:20 04/19/18 05:20 04/19/18 07:20 Oxygen Flow Rate (L/min) 3 Oxygen Delivery Method Nasal Cannula Weight: 135 lb 9.349 oz Body Mass Index (BMI) 20.0 Intake and Output for Last 24 Hours 04/17/18 04/18/18 04/19/18 23:59 23:59 23:59 Intake Total 974 / 974 Output Total 250 / 250 Balance 724 / 724 General: Alert, Oriented x3, Cooperative, No apparent distress HEENT: Atraumatic, PERRLA, EOMI, Normocephalic, - - has dried blood in her nostrils Oral: Moist Mucosa Neck: Supple, No JVD, Negative Carotid Bruits Lungs: - - has mildly decreased breath sounds in right lower lung vazquez, no crackles or wheezing auscultated. Cardiovascular: Regular rate, Regular Rhythm, Normal S1, Normal S2, No murmurs Abdomen: Bowel Sounds Present, Soft, Non Tender Extremities: No clubbing, No cyanosis, No edema, Capillary Refill Less than 3 Seconds Skin: No rashes, No breakdown Musculoskeletal: No Tenderness to Palpation of Joints or Extremities Lymphatic: No Cervical, Supraclavicular, or Inguinal Adenopathy Neurological: Cranial nerves II-XII grossly intact, Motor Exam 5/5 strength throughout Psych/Mental Status: Normal Affect, Appropriate, Alert and oriented to time, place, person, mood and affect Laboratory Tests 04/18/18 04/18/18 04/18/18 19:59 19:59 20:34 WBC 5.5 RBC 3.55 L Hgb 11.2 L Hct 35.6 L MCV 100.3 H MCH 31.5 MCHC 31.5 L RDW 12.4 RDW Differential 44.5 H Plt Count 180 MPV 9.8 Immature Gran % (Auto) 0.200 Neut % (Auto) 69.8 Lymph % (Auto) 14.[address] [place] % (Auto) 8.9 Eos % (Auto) 6.5 H Baso % (Auto) 0.4 Absolute Neuts (auto) 3.9 Absolute Lymphs (auto) 0.78 L Total Counted Not Reportable Sodium 139 Potassium 3.4 L Chloride 99 Carbon Dioxide 38.0 H Anion Gap 2 L BUN 9 Creatinine 0.69 Estim Creat Clear Calc 44.21 Est GFR (MDRD) Af Amer 107 Est GFR (MDRD) Non-Af 88 BUN/Creatinine Ratio 13.1 Glucose 106 Calcium 10.7 H Troponin I < 0.015 Urine Color Yellow Urine Clarity Clear Urine pH 7.0 Ur Specific [place] 1.010 Urine Protein Negative Urine Glucose (UA) Normal Urine Ketones Negative Urine Occult Blood Negative Urine Nitrite Negative Urine Bilirubin Negative Urine Urobilinogen Normal Ur Leukocyte Esterase Negative Urine RBC 0 SEEN Urine WBC 0 SEEN Ur Squamous Epith Cells 0-5 SEEN Urine Bacteria 0 SEEN Urine Mucus 0 SEEN Diagnostic Data Chest X-Ray 04/18/18 19:53 IMPRESSION: Chronic interstitial fibrotic changes of the lungs. Hyperinflation of the lungs consistent with COPD. Left lower lobe infiltrate, representing a new interval finding. Calcified plaques of the aortic arch. Electronically Signed: Miles Bishop MD at 20:07 EDT , Service support , Current Medications Albuterol/Ipratropium (Duoneb) 3 ml INHALATION Q6HWA.RT [facility] Last Admin: 04/19/18 07:20 Dose: 3 ml Budesonide (Pulmicort Aerosol) 0.5 mg INHALATION Q12H.RT [facility] Last Admin: 04/19/18 07:28 Dose: 0.5 mg Buspirone HCl (Buspar) 5 mg PO BID [facility] Last Admin: 04/19/18 08:21 Dose: 5 mg Calcium/Vitamin D (Os-Bud 500mg + D) 1 tablet PO TIDCM [facility] Last Admin: 04/19/18 08:17 Dose: 1 tablet Cyclobenzaprine HCl (Cyclobenzaprine Hcl) 5 mg PO TID PRN PRN PRN Reason: BACK SPASM Diltiazem HCl (Cardizem Cd) 240 mg PO DAILY [facility] Last Admin: 04/19/18 08:21 Dose: 240 mg Famotidine (Pepcid) 20 mg PO BID [facility] Last Admin: 04/19/18 08:21 Dose: 20 mg Levofloxacin (Levaquin Iv) 750 mg in 150 mls @ 100 mls/hr IV Q48 [facility] Last Admin: 04/19/18 00:12 Dose: 100 mls/hr Levothyroxine Sodium (Synthroid) 50 mcg PO DAILY@0600 [facility] Last Admin: 04/19/18 05:28 Dose: 50 mcg Magnesium Hydroxide (Milk Of Magnesia) 30 ml PO DAILY PRN PRN PRN Reason: Constipation Magnesium Oxide (Mag-Ox 400) 400 mg PO DAILY@0800 [facility] Last Admin: 04/19/18 08:17 Dose: 400 mg Montelukast Sodium (Singulair) 10 mg PO DAILY@1700 [facility] Polysaccharide Iron Complex (Ferrex 150) 150 mg PO DAILYCM [facility] Last Admin: 04/19/18 08:16 Dose: 150 mg Potassium Chloride (K-Dur) 20 meq PO DAILY@0800 [facility] Last Admin: 04/19/18 08:16 Dose: 20 meq Sertraline HCl (Zoloft) 50 mg PO DAILY [facility] Last Admin: 04/19/18 08:21 Dose: 50 mg Sodium Chloride () 5 - 30 ml IV UD PRN PRN Reason: SALINE FLUSH Trazodone HCl (Desyrel) 100 mg PO QHS [facility] Last Admin: 04/18/18 23:36 Dose: 100 mg Medical Necessity - Tobacco Use Smoking Status: Former smoker Assessment/Plan All Active Problems (Last Reviewed 12/03/17 @ 10:29 by Aj Gray MD) CAP (community acquired pneumonia) (Acute) COPD with acute exacerbation (Acute) Shortness of breath (Acute) Human metapneumovirus (hMPV) pneumonia (Acute) Epistaxis (Acute) Acute respiratory failure with hypoxia and hypercapnia (Resolved) Atrial fibrillation with rapid ventricular response (Resolved) Healthcare-associated pneumonia (Resolved) Leucocytosis (Resolved) Metabolic alkalosis (Resolved) Metabolic encephalopathy (Resolved) Streptococcal pneumonia (Resolved) Thrush (Resolved) 1. Community acquired pneumonia cough and SOB has improved. On 2L of oxygen by nasal canula has no leucocytosis. on IV levaquin 750mg daily; will continue 2. Epistaxis, hematuria and hemoptysis likely due to xarelto Takes Xarelto on account of A. fib. Xarelto held on admission due to above symptoms. Has remained stable at 11.2. Will get pulmonology on board as patient was due to see a farm operator today, that would want to be assessed by pulmonology. 3. Paroxysmal Afib: rate controlled. currently in sinus rhythm. on cardizem 240mg daily xarelto currently on hold. To discuss with blind eyeletter on outpatient basis about resuming it o/a of hematuria, hemoptysis and epistaxis. 4. Hypothyroidism: on synthroid. 5. COPD: stable. on duonebs and pulmicort, as well as Incruse Ellipta and roflumilast. DVT prophylaxis: heparin GI prophylaxis: pantoprazole Code Visit OBSV E&M: 09007 Subsequent observation care L2
--- NOTE | 2018-04-19 10:58 | PN_ITS ---
Patient Problems: Active and Suspected Problems (Last Reviewed 12/03/17 @ 10:29 by Aj Gray MD ) Epistaxis (Acute) Subjective: Patient is a 77-year-old female with a history of COPD and paroxysmal atrial fibrillation on Xarelto. She was admitted by the ED on 04/18/2018 with a complaint of shortness of breath and bleeding from her nostrils. Epistasis occurred just on day of admission but also complained that she had been coughing up blood for about 2 weeks prior to admission. She also complained of hematuria. Chest x-ray on admission revealed a left lower lobe pneumonia. Epistasis resolved spontaneously. She was started on IV ceftriaxone and azithromycin for community-acquired pneumonia. Patient seen and examined. Epistasis and coughing up of blood had an recurred since admission. She denied any fever or chills, any chest pain, any shortness of breath, any abdominal pain, any diarrhea vomiting. Hematuria also hadnt recurred. According to her she was supposed to see her digital marketing officer Dr. King today to have a sputum sample analyzed. She was therefore appreciate if Dr. paz consulted. She also denies any history of weight loss, night sweats, exposure to anybody with TB or any recent travel. Vitals/I&O's: Vital Signs Temp Pulse Resp BP Pulse Ox 97.8 F 75 18 105/54 L 97 04/19/18 05:20 04/19/18 07:20 04/19/18 07:20 04/19/18 05:20 04/19/18 07:20 Oxygen Flow Rate (L/min) 3 Oxygen Delivery Method Nasal Cannula Weight: 135 lb 9.349 oz Body Mass Index (BMI) 20.0 Intake and Output for Last 24 Hours 04/17/18 04/18/18 04/19/18 23:59 23:59 23:59 Intake Total 974 / 974 Output Total 250 / 250 Balance 724 / 724 General: Alert, Oriented x3, Cooperative, No apparent distress HEENT: Atraumatic, PERRLA, EOMI, Normocephalic, - - has dried blood in her nostrils Oral: Moist Mucosa Neck: Supple, No JVD, Negative Carotid Bruits Lungs: - - has mildly decreased breath sounds in right lower lung vazquez, no crackles or wheezing auscultated. Cardiovascular: Regular rate, Regular Rhythm, Normal S1, Normal S2, No murmurs Abdomen: Bowel Sounds Present, Soft, Non Tender Extremities: No clubbing, No cyanosis, No edema, Capillary Refill Less than 3 Seconds Skin: No rashes, No breakdown Musculoskeletal: No Tenderness to Palpation of Joints or Extremities Lymphatic: No Cervical, Supraclavicular, or Inguinal Adenopathy Neurological: Cranial nerves II-XII grossly intact, Motor Exam 5/5 strength throughout Psych/Mental Status: Normal Affect, Appropriate, Alert and oriented to time, place, person, mood and affect Laboratory Tests 04/18/18 04/18/18 04/18/18 19:59 19:59 20:34 WBC 5.5 RBC 3.55 L Hgb 11.2 L Hct 35.6 L MCV 100.3 H MCH 31.5 MCHC 31.5 L RDW 12.4 RDW Differential 44.5 H Plt Count 180 MPV 9.8 Immature Gran % (Auto) 0.200 Neut % (Auto) 69.8 Lymph % (Auto) 14.2 L [place] % (Auto) 8.9 Eos % (Auto) 6.5 H Baso % (Auto) 0.4 Absolute Neuts (auto) 3.9 Absolute Lymphs (auto) 0.78 L Total Counted Not Reportable Sodium 139 Potassium 3.4 L Chloride 99 Carbon Dioxide 38.0 H Anion Gap 2 L BUN 9 Creatinine 0.69 Estim Creat Clear Calc 44.21 Est GFR (MDRD) Af Amer 107 Est GFR (MDRD) Non-Af 88 BUN/Creatinine Ratio 13.1 Glucose 106 Calcium 10.7 H Troponin I < 0.015 Urine Color Yellow Urine Clarity Clear Urine pH 7.0 Ur Specific [place] 1.010 Urine Protein Negative Urine Glucose (UA) Normal Urine Ketones Negative Urine Occult Blood Negative Urine Nitrite Negative Urine Bilirubin Negative Urine Urobilinogen Normal Ur Leukocyte Esterase Negative Urine RBC 0 SEEN Urine WBC 0 SEEN Ur Squamous Epith Cells 0-5 SEEN Urine Bacteria 0 SEEN Urine Mucus 0 SEEN Diagnostic Data Chest X-Ray 04/18/18 19:53 IMPRESSION: Chronic interstitial fibrotic changes of the lungs. Hyperinflation of the lungs consistent with COPD. Left lower lobe infiltrate, representing a new interval finding. Calcified plaques of the aortic arch. Electronically Signed: Miles Bishop MD at 20:07 EDT , Service support , Current Medications Albuterol/Ipratropium (Duoneb) 3 ml INHALATION Q6HWA.RT [facility] Last Admin: 04/19/18 07:20 Dose: 3 ml Budesonide (Pulmicort Aerosol) 0.5 mg INHALATION Q12H.RT [facility] Last Admin: 04/19/18 07:28 Dose: 0.5 mg Buspirone HCl (Buspar) 5 mg PO BID [facility] Last Admin: 04/19/18 08:21 Dose: 5 mg Calcium/Vitamin D (Os-Bud 500mg + D) 1 tablet PO TIDCM [facility] Last Admin: 04/19/18 08:17 Dose: 1 tablet Cyclobenzaprine HCl (Cyclobenzaprine Hcl) 5 mg PO TID PRN PRN PRN Reason: BACK SPASM Diltiazem HCl (Cardizem Cd) 240 mg PO DAILY [facility] Last Admin: 04/19/18 08:21 Dose: 240 mg Famotidine (Pepcid) 20 mg PO BID [facility] Last Admin: 04/19/18 08:21 Dose: 20 mg Levofloxacin (Levaquin Iv) 750 mg in 150 mls @ 100 mls/hr IV Q48 [facility] Last Admin: 04/19/18 00:12 Dose: 100 mls/hr Levothyroxine Sodium (Synthroid) 50 mcg PO DAILY@0600 [facility] Last Admin: 04/19/18 05:28 Dose: 50 mcg Magnesium Hydroxide (Milk Of Magnesia) 30 ml PO DAILY PRN PRN PRN Reason: Constipation Magnesium Oxide (Mag-Ox 400) 400 mg PO DAILY@0800 [facility] Last Admin: 04/19/18 08:17 Dose: 400 mg Montelukast Sodium (Singulair) 10 mg PO DAILY@1700 [facility] Polysaccharide Iron Complex (Ferrex 150) 150 mg PO DAILYCM [facility] Last Admin: 04/19/18 08:16 Dose: 150 mg Potassium Chloride (K-Dur) 20 meq PO DAILY@0800 [facility] Last Admin: 04/19/18 08:16 Dose: 20 meq Sertraline HCl (Zoloft) 50 mg PO DAILY [facility] Last Admin: 04/19/18 08:21 Dose: 50 mg Sodium Chloride () 5 - 30 ml IV UD PRN PRN Reason: SALINE FLUSH Trazodone HCl (Desyrel) 100 mg PO QHS [facility] Last Admin: 04/18/18 23:36 Dose: 100 mg Medical Necessity - Tobacco Use Smoking Status: Former smoker Assessment/Plan All Active Problems (Last Reviewed 12/03/17 @ 10:29 by Aj Gray MD) CAP (community acquired pneumonia) (Acute) COPD with acute exacerbation (Acute) Shortness of breath (Acute) Human metapneumovirus (hMPV) pneumonia (Acute) Epistaxis (Acute) Acute respiratory failure with hypoxia and hypercapnia (Resolved) Atrial fibrillation with rapid ventricular response (Resolved) Healthcare-associated pneumonia (Resolved) Leucocytosis (Resolved) Metabolic alkalosis (Resolved) Metabolic encephalopathy (Resolved) Streptococcal pneumonia (Resolved) Thrush (Resolved) 1. Community acquired pneumonia * cough and SOB has improved. On 2L of oxygen by nasal canula * has no leucocytosis. * on IV levaquin 750mg daily; will continue * 2. Epistaxis, hematuria and hemoptysis likely due to xarelto * Takes Xarelto on account of A. fib. Xarelto held on admission due to above symptoms. * Has remained stable at 11.2. * Will get pulmonology on board as patient was due to see a digital marketing officer today , that would want to be assessed by pulmonology. * 3. Paroxysmal Afib: * rate controlled. currently in sinus rhythm. * on cardizem 240mg daily * xarelto currently on hold. To discuss with arc welder apprentice on outpatient basis about resuming it o/a of hematuria, hemoptysis and epistaxis. * 4. Hypothyroidism: on synthroid. 5. COPD: stable. on duonebs and pulmicort, as well as Incruse Ellipta and roflumilast. DVT prophylaxis: heparin GI prophylaxis: pantoprazole Code Visit OBSV E&M: 53054 Subsequent observation care L2
[2018-04-19 11:47] LABS: Absolute Lymphocyte Count 0.59 X10^3/ul (0.83-4.51); Absolute Neutrophil Count 3.6 X10^3/uL (2.0-7.7); Basophil# 0.01 X10^3/uL; Basophil% 0.2 % (0-1); Eosinophil# 0.18 X10^3/uL; Eosinophils% 3.8 % (0-5); Hematocrit 33.9 % (37-47); Hemoglobin 10.5 g/dl (12.0-15.0); Lymphocyte # 0.59 X10^3/ul (4.0); Lymphocyte % 12.5 % (19-41); Mean Corpuscular Hgb 31.3 pg (27.0-32.0); Mean Corpuscular Volume 100.9 fL (81-99); Mean Platelet Vol. 9.8 fl (6.2-12.0); Monocyte# 0.35 X10^3/uL; Monocyte% 7.4 % (0-10); Neutrophil # 3.57 X10^3/uL (2.7-7.7); Neutrophil % 75.9 % (47-70); Platelet Count 171 K/mm3 (150-450); RBC Distribution Width CV 12.4 % (11.6-14.6); RBC Distribution Width SD 44.2 fl (35.1-43.9); Red Blood Count 3.36 M/mm3 (4.2-5.4); White Blood Count 4.7 K/mm3 (4.4-11.0)
[2018-04-19 11:52] LABS: Differential Indicated SCAN CRITERIA MET; POSITIVE COUNT NO; POSITIVE DIFFERENTIAL YES; POSITIVE MORPHOLOGY NO
[2018-04-19 12:05] LABS: Differential Comment SCANNED
[2018-04-19 12:20] LABS: Anion Gap 5 (5-15); BUN 9 mg/dL (7-18); Calcium,Total 10.1 mg/dL (8.5-10.1); Chloride 100 mmol/L (98-107); EST Glomerular Filtration Rate 128 mL/min (>60); Est Glom Filt Rate - Afr Amer 154 mL/min (>60); Estimated Creatinine Clearance 46.47 ml/min; Glucose 114 mg/dL (74-106); Potassium 3.6 mmol/L (3.5-5.1); Sodium Level 142 mmol/L (136-145)
[2018-04-19] MEDS: Montelukast 10 MG Tablet PO (16:46)
[2018-04-19] MEDS: Loratadine 10 MG Tablet PO (16:46)
--- NOTE | 2018-04-19 20:15 | NURSING ---
Pt transported to [facility] by Shawn DAVENPORT d/t the need for precautionary airborne isolation.
[2018-04-19] MEDS: guaiFENesin 1,200 MG Tablet 1200 MG PO (22:43)
[2018-04-19] MEDS: traZODone 100 MG Tablet PO (22:43)
[2018-04-20] VITALS (17 sets, daily range): BP systolic 100–125; BP diastolic 52–70; PULSE 67–111; RESP 16–21; TEMP 36.5–36.9; O2SAT 93–99
--- NOTE | 2018-04-20 | SPU_PTH ---
PATIENT: MATT HOWARD LOC: [facility] U#:[id number] AGE/SX: 77/F ROOM: [facility] RE04/18/[address]: Dr. Chanel Weinberg MD : 1940 BED: 1 DIS: 04/21/2018 SPEC #: [id number] RECD: 04/20/18 11:50 STATUS: SOUShahzad REQ #: [id number] YANY: 04/20/18 00:[address]: Parvez King V DEPT: CYTOLOGY RECD BY: Claribel Smart ENTERED: 04/20/18 11:51 SP TYPE: Sputum Cy OTHR DR: MD Dr. Chanel Savage MD Dr. Paul Nielsen, MD Dr. Robert V Sibilia, MD Tissues: A - Sputum B - Bronchus of left lower lobe Procedures: Pap Stain (control) Special Stain Group II Special Stain Group I Surgery Specimen Level IV AFB Stain (control) GMS Stain (control) Cell Block Cytospin Fluid Comments: @ Ordering doctor for PAPS edited from to @ by LILLIEYTARTIE at 04/20/18 1407 @ Ordering doctor for SSII edited from to @ by LILLIEYTARTIE at 04/20/18 1407 @ Ordering doctor for SSI edited from to @ by YOANDY at 04/20/18 1407 @ Ordering doctor for AFB edited from to @ by LILLIEYTARTIE at 04/20/18 1407 @ Ordering doctor for CYSPIN edited from to @ by LILLIEYTARTIE at 04/20/18 1407 @ Submitting doctor edited from to @ by YOANDY at 04/20/18 1407 HEADER OPERATION: LLL bronchial lavage PRE-OP DIAGNOSIS: CAP and epistaxis TISSUE SUBMITTED: A. Sputum for cytology, B. LLL bronchial lavage DIAGNOSIS CYTOLOGY A. Sputum for cytology (smears and cytospin): Negative for malignant cells. Special stain for acid fast bacilli is negative for organisms; matched control is appropriate. B. LLL bronchial lavage (cytospin and cell block): Negative for malignant cells. Special stains for acid fast bacilli and fungi are negative for organisms; matched controls are appropriate. HUNG:damien 04/21/18 COMMENT Clinical correlation and appropriate follow up are necessary. CYTOLOGY STUDY Slides are reviewed. A. The specimen predominantly consists of benign squamous cells, a few macrophages, inflammatory cells, red blood cells and organisms consistent with bacteria. B. The specimen consists of numerous macrophages, a few respiratory epithelial cells and squamous cells, inflammatory cells and organisms consistent with bacteria. CYTOLOGY GROSS A - Received is 1 ml of bloody mucoid labeled with the patient's name and and designated per the requisition as sputum. Submitted for cytology preparation including. B - Received is 40 ml of dark red cloudy fluid labeled with the patient's name and and designated per the requisition as LLL. Submitted for cytology preparation including cell block. / CC:cc 04/20/18 TC:5 CPT: 20409 x2, 83637 x3, [id number]
[2018-04-20] MEDS: Budesonide Respules 0.5 MG/2 ML AMPUL.NEB. INHALATION (06:50)
[2018-04-20] MEDS: Ipratropium/Albuterol Sulfate 3 ML AMPUL.NEB INHALATION ×2 (06:51→20:20)
[2018-04-20 07:40] LABS: Absolute Neutrophil Count 3.3 X10^3/uL (2.0-7.7); Basophil# 0.01 X10^3/uL; Basophil% 0.2 % (0-1); Eosinophils% 6.3 % (0-5); Hematocrit 37.1 % (37-47); Hemoglobin 11.3 g/dl (12.0-15.0); Lymphocyte % 14.6 % (19-41); Mean Corp Hgb Conc 30.5 g/gl (32-36); Mean Corpuscular Hgb 30.4 pg (27.0-32.0); Mean Corpuscular Volume 99.7 fL (81-99); Mean Platelet Vol. 10.2 fl (6.2-12.0); Monocyte# 0.51 X10^3/uL; Monocyte% 10.6 % (0-10); Neutrophil # 3.27 X10^3/uL (2.7-7.7); Neutrophil % 68.1 % (47-70); Platelet Count 180 K/mm3 (150-450); RBC Distribution Width CV 12.8 % (11.6-14.6); RBC Distribution Width SD 46.7 fl (35.1-43.9); Red Blood Count 3.72 M/mm3 (4.2-5.4); White Blood Count 4.8 K/mm3 (4.4-11.0)
[2018-04-20 07:41] LABS: POSITIVE COUNT NO; POSITIVE DIFFERENTIAL NO; POSITIVE MORPHOLOGY NO
[2018-04-20 07:54] LABS: Anion Gap 4 (5-15); BUN 9 mg/dL (7-18); BUN/Creat Ratio 22.3 RATIO (10-20); Calcium,Total 10.1 mg/dL (8.5-10.1); Chloride 100 mmol/L (98-107); EST Glomerular Filtration Rate 163 mL/min (>60); Est Glom Filt Rate - Afr Amer 198 mL/min (>60); Estimated Creatinine Clearance 46.47 ml/min; Glucose 83 mg/dL (74-106); Potassium 3.3 mmol/L (3.5-5.1); Sodium Level 143 mmol/L (136-145)
[2018-04-20 08:22] LABS: International Normalized Ratio 1.2; Partial Thromboplast Time 35.1 Seconds (24.1-36.2); Prothrombin Time (Protime)PT. 15.2 SECONDS (11.7-14.9)
--- NOTE | 2018-04-20 09:17 | PCM.CONS.GEN ---
Reason for Consult History of Present Illness: The patient is a 77 year old F hemoptysis for 2 wks The patient is a limited historian, but her indicates that she has had vaginal bleeding and had an ultrasound last week with her primary care physician. She called our office during last week and indicated that she was having hemoptysis, she was asked to stop her Xarelto immediately and if the volume of sputum increase she was to go to the ER. The patient was having scant sputum less than total of an ounce a day and multiple episodes of sputum production She indicated no URI or LRI symptoms, she was not sick with wheezing shortness of breath chest congestion fevers A family member suggested that she reinstitute her Xarelto to reduce her risk of clot With that the patient began to bleed substantially on Wednesday vaginally, nosebleed, hemoptysis picked up Volume of a hemoptysis is estimated at 1/4 cup per patient today She admits no chest wall pain and she indicates that 24 hours prior she did take her Xarelto She otherwise has no bruising petechiae, headache She has not had a history of hemoptysis She had a CT scan in June which did not show evidence of malignancy 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 [] Past Medical History Past Medical History (Chronic Problems): Chronic Problems (Last Reviewed 12/03/17 @ 10:29 by Aj Gray MD) Normochromic normocytic anemia (Chronic) Iron deficiency (Chronic) Osteoporosis (Chronic) Vertebral compression fracture (Chronic) History of malnutrition (Chronic) Restless leg syndrome (Chronic) Hypothyroidism (Chronic) Anxiety and depression (Chronic) Insomnia (Chronic) Hypomagnesemia (Chronic) Pulmonary fibrosis (Chronic) Atrial fibrillation (Chronic) Weakness (Chronic) Anxiety (Chronic) Iron deficiency anemia (Chronic) Depression (Chronic) GERD (gastroesophageal reflux disease) (Chronic) Hypokalemia (Chronic) Paroxysmal atrial fibrillation (Chronic) COPD (chronic obstructive pulmonary disease) (Chronic) Chronic respiratory failure with hypoxia (Chronic) Medical History: Medical History (Last Reviewed 12/03/17 @ 10:29 by Aj Gray MD) Paroxysmal atrial fibrillation (Chronic) I48.0 COPD (chronic obstructive pulmonary disease) (Chronic) J44.9 Chronic respiratory failure with hypoxia (Chronic) J96.11 Anxiety F41.9 GERD (gastroesophageal reflux disease) K21.9 Hypothyroidism E03.9 RLS (restless legs syndrome) G25.81 Metabolic encephalopathy (Resolved) G93.41 Allergies amoxicillin trihydrate [From Augmentin] Allergy (Verified 04/18/18 23:15) Rash gluten Allergy (Verified 04/18/18 23:15) Other potassium clavulanate [From Augmentin] Allergy (Verified 04/18/18 23:15) Rash risperidone [From Risperdal] Adverse Reaction (Severe, Verified 04/18/18 23:15) Hallucinations esomeprazole magnesium [From Nexium] Adverse Reaction (Verified 04/18/18 23:15) Itching furosemide [From Lasix] Adverse Reaction (Verified 04/18/18 23:15) Hives Sulfa (Sulfonamide Antibiotics) Adverse Reaction (Verified 04/18/18 23:15) CONFUSION sulfamethoxazole [From Bactrim] Adverse Reaction (Verified 04/18/18 23:15) CONFUSION trimethoprim [From Bactrim] Adverse Reaction (Verified 04/18/18 23:15) CONFUSION Home Medications: Ambulatory Orders Medication Instructions Recorded Levothyroxine [Synthroid] 50 mcg PO DAILY 07/12/17 busPIRone [Buspar] 5 mg PO DAILY 07/23/17 Albuterol Aerosols [Ventolin 2.5 mg INHALATION Q2H PRN PRN 09/13/17 Aerosols] vial.neb. Sertraline HCl [Zoloft] 50 mg PO DAILY 09/13/17 Famotidine [Pepcid] 20 mg PO BID #60 tab 09/24/17 roflumilast 500 mcg tablet 500 mcg PO QDAY 12/03/17 Calcium Carb/Vitamin D [Os-Bud 1 tablet PO TIDCM 01/26/18 500MG + D] Iron Polysaccharide Complex 150 mg PO DAILYCM 01/26/18 [Ferrex 150] traZODone [Desyrel] 50 mg PO QHS 01/26/18 Magnesium Oxide [Mag-Ox 400] 400 mg PO DAILY@0800 02/04/18 Potassium Chloride 20 meq PO BID 02/04/18 Montelukast [Singulair] 10 mg PO DAILY@1700 #30 tab 02/17/18 Acetaminophen [Tylenol] 650 mg PO PRN 04/19/18 Fluticasone/Salmeterol [Advair 1 each IH BID 04/19/18 100-50 Diskus] Guaifenesin [Guaifenesin ER] 1 tab PO BID 04/19/18 Loratadine/Pseudo 240/10 1 tab PO DAILY 04/19/18 [Claritin-D 24 Hr] Metoprolol Tartrate 25 mg PO DAILY 04/19/18 Rivaroxaban [Xarelto] 20 mg PO DINNER 04/19/18 Tiotropium Choudrant 18 mcg INHALATION DAILY 04/19/18 Zafirlukast 20 mg PO BID 04/19/18 Surgical History: noncontributory Psychiatric History: Anxiety, Depression DIRECTOR OF UNDERGRADUATE ADMISSIONS History: No pertinent DIRECTOR OF UNDERGRADUATE ADMISSIONS history Smoking Status: Former smoker - *Family History Maternal History Items: No pertinent history Paternal History Items: No pertinent history Review of Systems Constitutional: Denies: Chills, Fever, Weight Change HEENT: Denies: Head Aches, Sinus Congestion, Sinus Drainage Cardiovascular: Denies: Chest Pain, Palpitations Respiratory: Reports: Hemoptysis - 1/4 cup bright red, over 1 day, no green or thick sputum. Denies: Cough, Shortness of breath at rest, Sputum production Gastrointestinal: Denies: Abdominal Pain, Nausea, Vomiting Genitourinary: Denies: Dysuria Musculoskeletal: Denies: Joint Pain, Joint Tenderness Skin: Denies: Rash, Wounds Neurological: Denies: Numbness, Tingling, Focal weakness Psychiatric: Denies: Anxiety, Depression, Homicidal Ideations, Suicidal Ideations Hematologic/ Lymphatic: Denies: Easy Bruising, Easy Bleeding Patient Problems: Active and Suspected Problems (Last Reviewed 12/03/17 @ 10:29 by Aj Gray MD) Epistaxis (Acute) - Physical Exam General: Alert, Oriented x3, Cooperative HEENT: Atraumatic, EOMI, Normocephalic Neck: Supple, No JVD, Negative Carotid Bruits, No Nodes - Cervically, - - Really no epistaxis Lungs: - - Scattered rhonchi, diminished breath sounds, kyphosis, no wheeze, coarse breath sounds at the bases more so on the left no egophony, Pipe muscle use no increased work of breathing Cardiovascular: Regular rate, No murmurs Abdomen: Bowel Sounds Present, Soft, Non Tender Extremities: No edema, Capillary Refill Less than 3 Seconds Skin: No rashes, No breakdown Musculoskeletal: No Tenderness to Palpation of Joints or Extremities Neurological: Cranial nerves II-XII grossly intact Psych/Mental Status: Normal Affect, Appropriate Vital Signs Temp Pulse Resp BP Pulse Ox 97.7 F L 77 18 113/62 99 04/20/18 08:38 04/20/18 08:38 04/20/18 08:38 04/20/18 08:38 04/20/18 08:38 Oxygen Flow Rate (L/min) 3 Oxygen Delivery Method Nasal Cannula Weight: 61.5 kg Body Mass Index (BMI) 20.0 Intake and Output for Last 24 Hours 04/18/18 04/19/18 04/20/18 23:59 23:59 23:59 Intake Total 974 / 974 Output Total 250 / 250 Balance 724 / 724 Laboratory Tests Past 24 Hrs 04/19/18 04/19/18 04/20/18 11:34 11:34 05:45 WBC 4.7 RBC 3.36 L Hgb 10.5 L Hct 33.9 L MCV 100.9 H MCH 31.3 MCHC 31.0 L RDW 12.4 RDW Differential 44.2 H Plt Count 171 MPV 9.8 Immature Gran % (Auto) 0.200 Neut % (Auto) 75.9 H Lymph % (Auto) 12.5 L [place] % (Auto) 7.4 Eos % (Auto) 3.8 Baso % (Auto) 0.2 Absolute Neuts (auto) 3.6 Absolute Lymphs (auto) 0.59 L Total Counted Not Reportable Differential Comment SCANNED PT 15.2 H INR 1.2 APTT 35.1 Sodium 142 Potassium 3.6 Chloride 100 Carbon Dioxide 37.0 H Anion Gap 5 BUN 9 Creatinine 0.50 L Estim Creat Clear Calc 46.47 Est GFR (MDRD) Af Amer 154 Est GFR (MDRD) Non-Af 128 BUN/Creatinine Ratio 18.0 Glucose 114 H Calcium 10.1 04/20/18 04/20/18 05:45 05:45 WBC 4.8 RBC 3.72 L Hgb 11.3 L Hct 37.1 MCV 99.7 H MCH 30.4 MCHC 30.5 L RDW 12.8 RDW Differential 46.7 H Plt Count 180 MPV 10.2 Immature Gran % (Auto) 0.200 Neut % (Auto) 68.1 Lymph % (Auto) 14.6 L [place] % (Auto) 10.6 H Eos % (Auto) 6.3 H Baso % (Auto) 0.2 Absolute Neuts (auto) 3.3 Absolute Lymphs (auto) 0.70 L Total Counted Not Reportable Differential Comment PT INR APTT Sodium 143 Potassium 3.3 L Chloride 100 Carbon Dioxide 39.0 H Anion Gap 4 L BUN 9 Creatinine 0.40 L Estim Creat Clear Calc 46.47 Est GFR (MDRD) Af Amer 198 Est GFR (MDRD) Non-Af 163 BUN/Creatinine Ratio 22.3 H Glucose 83 Calcium 10.1 Assessment/Plan All Active Problems (Last Reviewed 12/03/17 @ 10:29 by Aj Gray MD) CAP (community acquired pneumonia) (Acute) COPD with acute exacerbation (Acute) Shortness of breath (Acute) Human metapneumovirus (hMPV) pneumonia (Acute) Epistaxis (Acute) Acute respiratory failure with hypoxia and hypercapnia (Resolved) Atrial fibrillation with rapid ventricular response (Resolved) Healthcare-associated pneumonia (Resolved) Leucocytosis (Resolved) Metabolic alkalosis (Resolved) Metabolic encephalopathy (Resolved) Streptococcal pneumonia (Resolved) Thrush (Resolved) Small volume hemoptysis less than one cup per day The patient did actually improve off of Xarelto She subsequently restarted Xarelto after it was explained that she needs to remain off the medication Recent CT scanning shows no evidence of active airway malignancy, nodules or masses from June 2017 and this is reviewed image by image The x-ray shows a coarse basilar infiltrate in the left which is new The patient has no elevation of white count and she is not ill I suspect that the process in the left lower lobe is pulmonary hemorrhage, I do not disagree with antibiotics at this point, Levaquin should be adequate I talked to her about bronchoscopy She is at increased risk for bronchoscopy and I may not be able to take biopsies given the use of Eliquis I will assess the patient the day of bronchoscopy, Wednesday, 20 April to see if the patient is still a candidate for an evaluation of the airway given persistent hemoptysis She understands risks and benefits of the procedure including but not limited to substantial bleeding and respiratory failure The case is also discussed with her Kedar and the attending physician
[2018-04-20 09:41] LABS: Magnesium 1.4 mg/dL (1.6-2.6)
[2018-04-20 09:51] LABS: Acid Fast Stain SEE PATHOLOGY REPORT; Cytology, Body Fluid / CSF SEE PATHOLOGY REPORT
--- NOTE | 2018-04-20 10:30 | RAD_ITS ---
STUDY: X-RAY CHEST REASON FOR EXAM: Female, 77 years old. Cough and shortness of breath. COPD. TECHNIQUE: PA and lateral views of the chest. COMPARISON: Comparison is made with prior examination dated April 18, 2018. FINDINGS: Hyperinflation. Emphysematous changes with decreased bronchovascular markings in both lungs worse in the upper lobes. Stable appearance of the increased coarsened interstitial markings with areas of confluence in the posterior medial segment of the left lower lobe with areas of the honeycombing. This is suggestive of a stable chronic interstitial fibrosis. Stable increased markings at the right lung base as well. Blunting of both costophrenic angles. Normal size heart. Normal mediastinum and chris. Normal visualized pulmonary arteries. There is atherosclerotic calcification of the aortic arch with tortuosity. There is demineralization of the osseous structures. Normal visualized ribs, clavicles, and shoulders. There is no demonstrated abnormality of the visualized soft tissue structures of the upper abdomen. RAD/Chest PA and Lateral IMPRESSION: Hyperinflation. Stable chronic interstitial fibrosis worse in the left lung base. Electronically Signed: Ho Schumacher MD at 11:00 EDT Tel [phone], Service support ,
--- NOTE | 2018-04-20 11:58 | PCM.PROGNOTE ---
<Segundo Tirado - Last Filed: 04/20/18 13:54> Patient Problems: Active and Suspected Problems (Last Reviewed 12/03/17 @ 10:29 by Aj Gray MD) Epistaxis (Acute) Subjective: hemoptysis continues. she is not SOB. No CP. She is on 3 lpm o2 and satting well which is her home level. She is to have a bronch later today. - Physical Exam General: Alert, Oriented x3, Cooperative HEENT: Atraumatic, PERRLA, EOMI, Normocephalic Neck: Supple, No JVD, Negative Carotid Bruits Lungs: Diminished Cardiovascular: Regular rate, No murmurs Abdomen: Bowel Sounds Present, Soft, Non Tender Extremities: No edema, Capillary Refill Less than 3 Seconds Skin: No rashes, No breakdown Musculoskeletal: No Tenderness to Palpation of Joints or Extremities Neurological: Cranial nerves II-XII grossly intact Psych/Mental Status: Normal Affect, Appropriate, Alert and oriented to time, place, person, mood and affect Vital Signs Temp Pulse Resp BP Pulse Ox 97.7 F L 77 18 113/62 99 04/20/18 08:38 04/20/18 08:38 04/20/18 08:38 04/20/18 08:38 04/20/18 08:38 Oxygen Flow Rate (L/min) 3 Oxygen Delivery Method Nasal Cannula Weight: 135 lb 9.349 oz Body Mass Index (BMI) 20.0 Intake and Output for Last 24 Hours 04/18/18 04/19/18 04/20/18 23:59 23:59 23:59 Intake Total 974 / 974 Output Total 250 / 250 Balance 724 / 724 Laboratory Tests Past 24 Hrs 04/19/18 04/19/18 04/20/18 11:34 11:34 05:45 WBC RBC Hgb Hct MCV MCH MCHC RDW RDW Differential Plt Count MPV Immature Gran % (Auto) Neut % (Auto) Lymph % (Auto) [place] % (Auto) Eos % (Auto) Baso % (Auto) Absolute Neuts (auto) Absolute Lymphs (auto) Total Counted Not Reportable Differential Comment SCANNED PT 15.2 H INR 1.2 APTT 35.1 Sodium 142 Potassium 3.6 Chloride 100 Carbon Dioxide 37.0 H Anion Gap 5 BUN 9 Creatinine 0.50 L Estim Creat Clear Calc 46.47 Est GFR (MDRD) Af Amer 154 Est GFR (MDRD) Non-Af 128 BUN/Creatinine Ratio 18.0 Glucose 114 H Calcium 10.1 Magnesium Acid Fast Stain Miscellaneous Cytology 04/20/18 04/20/18 04/20/18 05:45 05:45 05:45 WBC 4.8 RBC 3.72 L Hgb 11.3 L Hct 37.1 MCV 99.7 H MCH 30.4 MCHC 30.5 L RDW 12.8 RDW Differential 46.7 H Plt Count 180 MPV 10.2 Immature Gran % (Auto) 0.200 Neut % (Auto) 68.1 Lymph % (Auto) 14.6 L [place] % (Auto) 10.6 H Eos % (Auto) 6.3 H Baso % (Auto) 0.2 Absolute Neuts (auto) 3.3 Absolute Lymphs (auto) 0.70 L Total Counted Not Reportable Differential Comment PT INR APTT Sodium 143 Potassium 3.3 L Chloride 100 Carbon Dioxide 39.0 H Anion Gap 4 L BUN 9 Creatinine 0.40 L Estim Creat Clear Calc 46.47 Est GFR (MDRD) Af Amer 198 Est GFR (MDRD) Non-Af 163 BUN/Creatinine Ratio 22.3 H Glucose 83 Calcium 10.1 Magnesium 1.4 L Acid Fast Stain Miscellaneous Cytology 04/20/18 09:30 WBC RBC Hgb Hct MCV MCH MCHC RDW RDW Differential Plt Count MPV Immature Gran % (Auto) Neut % (Auto) Lymph % (Auto) [place] % (Auto) Eos % (Auto) Baso % (Auto) Absolute Neuts (auto) Absolute Lymphs (auto) Total Counted Differential Comment PT INR APTT Sodium Potassium Chloride Carbon Dioxide Anion Gap BUN Creatinine Estim Creat Clear Calc Est GFR (MDRD) Af Amer Est GFR (MDRD) Non-Af BUN/Creatinine Ratio Glucose Calcium Magnesium Acid Fast Stain Pending Miscellaneous Cytology Pending Medical Necessity - Tobacco Use Smoking Status: Former smoker Assessment/Plan All Active Problems (Last Reviewed 12/03/17 @ 10:29 by Aj Gray MD) CAP (community acquired pneumonia) (Acute) COPD with acute exacerbation (Acute) Shortness of breath (Acute) Human metapneumovirus (hMPV) pneumonia (Acute) Epistaxis (Acute) Acute respiratory failure with hypoxia and hypercapnia (Resolved) Atrial fibrillation with rapid ventricular response (Resolved) Healthcare-associated pneumonia (Resolved) Leucocytosis (Resolved) Metabolic alkalosis (Resolved) Metabolic encephalopathy (Resolved) Streptococcal pneumonia (Resolved) Thrush (Resolved) 1. CAP - with hemoptysis. WBC negative. No fever. Continue levaquin. Bronch today with Dr. King. With Hemoptysis there are TB rule out tests pending. CXR this AM with hyperinflation and stable chronic interstitial fibrosis worse in the left lung base. 2. Chronic hypoxic respiratory failure 2/2 end stage COPD - on 3 lpm at home. Continue pulmicort, aerosols. 3. Xarelto coagulopathy - vaginal, nasal, ureteral bleeding all resolved. Hemoptysis continues. Hgb actually improved despite hemoptysis. 4. PAfib - SR. anticoagulation dc'd for above. on dig, bb, cardizem 5. hypothyroidism - on synthroid 6. Low potassium and mag - repleted. 7. Anx/Dep - continue home meds. DVT ppx: chemoppx contraindicated. SCDs This patient was seen by Segundo Tirado PA-C under the supervision of Doctor Sultana. <Chanel Weinberg - Last Filed: 04/20/18 15:00> - Physical Exam Vital Signs Temp Pulse Resp BP Pulse Ox 98.3 F 90 16 116/66 98 04/20/18 14:15 04/20/18 14:15 04/20/18 14:15 04/20/18 14:15 04/20/18 14:15 Oxygen Flow Rate (L/min) 3 Oxygen Delivery Method Nasal Cannula Weight: 135 lb 9.349 oz Body Mass Index (BMI) 20.0 Intake and Output for Last 24 Hours 04/18/18 04/19/18 04/20/18 23:59 23:59 23:59 Intake Total 974 / 974 500 / 500 Output Total 250 / 250 Balance 724 / 724 500 / 500 Microbiology Past 72 Hours 04/20/18 13:31 Gram Stain - Final Bronchial Lavage - Left Lower Lobe Laboratory Tests Past 24 Hrs 04/20/18 04/20/18 04/20/18 05:45 05:45 05:45 WBC 4.8 RBC 3.72 L Hgb 11.3 L Hct 37.1 MCV 99.7 H MCH 30.4 MCHC 30.5 L RDW 12.8 RDW Differential 46.7 H Plt Count 180 MPV 10.2 Immature Gran % (Auto) 0.200 Neut % (Auto) 68.1 Lymph % (Auto) 14.6 L [place] % (Auto) 10.6 H Eos % (Auto) 6.3 H Baso % (Auto) 0.2 Absolute Neuts (auto) 3.3 Absolute Lymphs (auto) 0.70 L Total Counted Not Reportable PT 15.2 H INR 1.2 APTT 35.1 Sodium 143 Potassium 3.3 L Chloride 100 Carbon Dioxide 39.0 H Anion Gap 4 L BUN 9 Creatinine 0.40 L Estim Creat Clear Calc 46.47 Est GFR (MDRD) Af Amer 198 Est GFR (MDRD) Non-Af 163 BUN/Creatinine Ratio 22.3 H Glucose 83 Calcium 10.1 Magnesium Fluid Source Fluid Color Fluid Appearance Fluid WBC Fluid RBC Fluid Tot Cell Count Fl Pathologist Comment Fluid Comment 2 Acid Fast Stain Miscellaneous Cytology 04/20/18 04/20/18 04/20/18 05:45 09:30 13:31 WBC RBC Hgb Hct MCV MCH MCHC RDW RDW Differential Plt Count MPV Immature Gran % (Auto) Neut % (Auto) Lymph % (Auto) [place] % (Auto) Eos % (Auto) Baso % (Auto) Absolute Neuts (auto) Absolute Lymphs (auto) Total Counted PT INR APTT Sodium Potassium Chloride Carbon Dioxide Anion Gap BUN Creatinine Estim Creat Clear Calc Est GFR (MDRD) Af Amer Est GFR (MDRD) Non-Af BUN/Creatinine Ratio Glucose Calcium Magnesium 1.4 L Fluid Source Pending Fluid Color Pending Fluid Appearance Pending Fluid WBC Pending Fluid RBC Pending Fluid Tot Cell Count Pending Fl Pathologist Comment Pending Fluid Comment 2 Pending Acid Fast Stain Pending Miscellaneous Cytology Pending 04/20/18 13:31 WBC RBC Hgb Hct MCV MCH MCHC RDW RDW Differential Plt Count MPV Immature Gran % (Auto) Neut % (Auto) Lymph % (Auto) [place] % (Auto) Eos % (Auto) Baso % (Auto) Absolute Neuts (auto) Absolute Lymphs (auto) Total Counted PT INR APTT Sodium Potassium Chloride Carbon Dioxide Anion Gap BUN Creatinine Estim Creat Clear Calc Est GFR (MDRD) Af Amer Est GFR (MDRD) Non-Af BUN/Creatinine Ratio Glucose Calcium Magnesium Fluid Source Fluid Color Fluid Appearance Fluid WBC Fluid RBC Fluid Tot Cell Count Fl Pathologist Comment Fluid Comment 2 Acid Fast Stain Miscellaneous Cytology Pending Assessment/Plan Patient seen under my supervision by Segundo Tirado PA-C Patient seen and examined. Had no complaints today. had a small amount of hemoptysis today when she was asked to cough up a sputum sample. Otherwise has no other complaints. Per discussion with Dr Bojorquez, patient had been off xarelto per his instructions, but invariably started taking it again per advice of friends. She started having hemoptysis, vaginal bleeding and epistaxis. Pelvis USG apparently done for vaginal bleeding was normal. Patient is currently under airborne and droplet precautions. She is undergoing bronchoscopy today. Patient seen and examined this morning. She had no complaints and feels well. o/e: General: Alert, Oriented x3, Cooperative HEENT: Atraumatic, PERRLA, EOMI, Normocephalic Neck: Supple, No JVD, Negative Carotid Bruits Lungs: mildly decreased breath sounds bibasally. no wheezing or crackles auscultated. Cardiovascular: Regular rate, No murmurs Abdomen: Bowel Sounds Present, Soft, Non Tender Extremities: No edema, Skin: No rashes, No breakdown Musculoskeletal: No Tenderness to Palpation of Joints or Extremities Neurological: Cranial nerves II-XII grossly intact Psych/Mental Status: Normal Affect, Appropriate, Alert and oriented to time, place, person, mood and affect Agree with above note, assessment and plan by Segundo Tirado PA-C. Code Visit Inpatient E&M: 73931 Subs Hosp L2
--- NOTE | 2018-04-20 12:10 | PCM.PROGNOTE ---
Patient Problems: Active and Suspected Problems (Last Reviewed 12/03/17 @ 10:29 by Aj Gray MD) Epistaxis (Acute) Subjective: hemoptysis less today 1 tsp seen / brown, not bright, no epistaxis, no sob. no fever claudia is good - Physical Exam General: Alert, Oriented x3, Cooperative HEENT: Atraumatic, PERRLA, EOMI, Normocephalic Neck: Supple, No JVD, Negative Carotid Bruits Lungs: - - dec bs, no wheeze. no cough no increase in m use, no rales min rhonchi, no fx rub. kyphosis Cardiovascular: Regular rate, No murmurs Abdomen: Bowel Sounds Present, Soft, Non Tender Extremities: No edema, Capillary Refill Less than 3 Seconds Skin: No rashes, No breakdown Musculoskeletal: No Tenderness to Palpation of Joints or Extremities Neurological: Cranial nerves II-XII grossly intact Psych/Mental Status: Normal Affect, Appropriate Vital Signs Temp Pulse Resp BP Pulse Ox 97.7 F L 77 18 113/62 99 04/20/18 08:38 04/20/18 08:38 04/20/18 08:38 04/20/18 08:38 04/20/18 08:38 Oxygen Flow Rate (L/min) 3 Oxygen Delivery Method Nasal Cannula Weight: 61.5 kg Body Mass Index (BMI) 20.0 Intake and Output for Last 24 Hours 04/18/18 04/19/18 04/20/18 23:59 23:59 23:59 Intake Total 974 / 974 Output Total 250 / 250 Balance 724 / 724 Laboratory Tests Past 24 Hrs 04/19/18 04/20/18 04/20/18 11:34 05:45 05:45 WBC 4.8 RBC 3.72 L Hgb 11.3 L Hct 37.1 MCV 99.7 H MCH 30.4 MCHC 30.5 L RDW 12.8 RDW Differential 46.7 H Plt Count 180 MPV 10.2 Immature Gran % (Auto) 0.200 Neut % (Auto) 68.1 Lymph % (Auto) 14.6 L [place] % (Auto) 10.6 H Eos % (Auto) 6.3 H Baso % (Auto) 0.2 Absolute Neuts (auto) 3.3 Absolute Lymphs (auto) 0.70 L Total Counted Not Reportable PT 15.2 H INR 1.2 APTT 35.1 Sodium 142 Potassium 3.6 Chloride 100 Carbon Dioxide 37.0 H Anion Gap 5 BUN 9 Creatinine 0.50 L Estim Creat Clear Calc 46.47 Est GFR (MDRD) Af Amer 154 Est GFR (MDRD) Non-Af 128 BUN/Creatinine Ratio 18.0 Glucose 114 H Calcium 10.1 Magnesium Acid Fast Stain Miscellaneous Cytology 04/20/18 04/20/18 04/20/18 05:45 05:45 09:30 WBC RBC Hgb Hct MCV MCH MCHC RDW RDW Differential Plt Count MPV Immature Gran % (Auto) Neut % (Auto) Lymph % (Auto) [place] % (Auto) Eos % (Auto) Baso % (Auto) Absolute Neuts (auto) Absolute Lymphs (auto) Total Counted PT INR APTT Sodium 143 Potassium 3.3 L Chloride 100 Carbon Dioxide 39.0 H Anion Gap 4 L BUN 9 Creatinine 0.40 L Estim Creat Clear Calc 46.47 Est GFR (MDRD) Af Amer 198 Est GFR (MDRD) Non-Af 163 BUN/Creatinine Ratio 22.3 H Glucose 83 Calcium 10.1 Magnesium 1.4 L Acid Fast Stain Pending Miscellaneous Cytology Pending Medical Necessity - Tobacco Use Smoking Status: Former smoker Assessment/Plan All Active Problems (Last Reviewed 12/03/17 @ 10:29 by Aj Gray MD) CAP (community acquired pneumonia) (Acute) COPD with acute exacerbation (Acute) Shortness of breath (Acute) Human metapneumovirus (hMPV) pneumonia (Acute) Epistaxis (Acute) Acute respiratory failure with hypoxia and hypercapnia (Resolved) Atrial fibrillation with rapid ventricular response (Resolved) Healthcare-associated pneumonia (Resolved) Leucocytosis (Resolved) Metabolic alkalosis (Resolved) Metabolic encephalopathy (Resolved) Streptococcal pneumonia (Resolved) Thrush (Resolved) 48 hr past anticoag at noon today. pt is having less blood x ray shows persistent infiltrate in lllobe no fever on abx plan: bronch for eval of airway and lavage l lower lobe risk and benefit reviewed again. pt is at risk for going home without eval of airway. cont abx. discussed /w attending cont w/ isolation.
[2018-04-20 13:36] LABS: Cytology, Body Fluid / CSF SEE PATHOLOGY REPORT
[2018-04-20 14:32] LABS: Appearance/Body Fluid TURBID; Color/Body Fluid RED; Source- Body Fluid BRONCHIAL LAVAGE
[2018-04-20 14:40] LABS: Red Cell Count/Body Fluid 4678 /mm3; White Blood Count/Body Fluid 2369 /mm3
[2018-04-20 14:57] LABS: Lymphocytes 49 %; Neutrophil (Segs) 21 %; Other Cell Type/BF 30 %
[2018-04-20 14:58] LABS: Body Fluid QC Type(s) BF2Q
[2018-04-20] MEDS: guaiFENesin 1,200 MG Tablet 1200 MG PO ×2 (15:11→21:26)
[2018-04-20] MEDS: Calcium Carb/Vitamin D 1 TABLET Tablet PO (15:11)
[2018-04-20] MEDS: dilTIAZem CD 240 MG Capsule PO (15:12)
[2018-04-20] MEDS: Iron Polysaccharide Complex 150 MG CAPSULE PO (15:13)
[2018-04-20] MEDS: Montelukast 10 MG Tablet PO (15:13)
[2018-04-20] MEDS: Magnesium Oxide 400 MG Tablet PO (15:13)
[2018-04-20] MEDS: Sertraline 50 MG Tablet PO (15:13)
[2018-04-20] MEDS: Levothyroxine 50 MCG Tablet PO (15:14)
[2018-04-20] MEDS: Famotidine 20 MG Tablet PO ×2 (15:15→21:26)
[2018-04-20] MEDS: busPIRone 5 MG Tablet PO ×2 (15:15→21:26)
[2018-04-20] MEDS: ROFLUMILAST 500 MCG TABLET PO (15:15)
[2018-04-20] MEDS: Metoprolol Tartrate 25 MG Tablet PO (15:15)
[2018-04-20] MEDS: Digoxin 125 MCG Tablet PO (15:15)
[2018-04-20] MEDS: Loratadine 10 MG Tablet PO (15:20)
[2018-04-20] MEDS: levoFLOXacin IV 750 MG/150 ML BAG 100 MG IV (15:21)
[2018-04-20] MEDS: traZODone 100 MG Tablet PO (21:26)
[2018-04-21 02:45] VITALS: BP 103/54; PULSE 78; RESP 18; TEMP 36.9; O2SAT 93
[2018-04-21 02:50] VITALS: O2SAT 93
[2018-04-21 04:35] VITALS: BP 108/55; PULSE 77; RESP 18; TEMP 36.9; O2SAT 94
[2018-04-21] MEDS: Levothyroxine 50 MCG Tablet PO (06:30)
[2018-04-21 06:50] VITALS: PULSE 68; RESP 16; O2SAT 97
[2018-04-21] MEDS: Budesonide Respules 0.5 MG/2 ML AMPUL.NEB. INHALATION (06:50)
[2018-04-21] MEDS: Ipratropium/Albuterol Sulfate 3 ML AMPUL.NEB INHALATION (06:50)
[2018-04-21 08:17] LABS: Absolute Lymphocyte Count 0.85 X10^3/ul (0.83-4.51); Absolute Neutrophil Count 4.4 X10^3/uL (2.0-7.7); Basophil# 0.01 X10^3/uL; Basophil% 0.2 % (0-1); Eosinophil# 0.24 X10^3/uL; Eosinophils% 4.1 % (0-5); Hemoglobin 10.7 g/dl (12.0-15.0); Lymphocyte # 0.85 X10^3/ul (4.0); Lymphocyte % 14.5 % (19-41); Mean Corp Hgb Conc 30.6 g/gl (32-36); Mean Corpuscular Hgb 30.7 pg (27.0-32.0); Mean Corpuscular Volume 100.6 fL (81-99); Mean Platelet Vol. 10.2 fl (6.2-12.0); Monocyte# 0.41 X10^3/uL; Neutrophil # 4.36 X10^3/uL (2.7-7.7); Platelet Count 188 K/mm3 (150-450); RBC Distribution Width CV 12.3 % (11.6-14.6); Red Blood Count 3.48 M/mm3 (4.2-5.4); White Blood Count 5.9 K/mm3 (4.4-11.0)
[2018-04-21 08:32] LABS: Anion Gap 7 (5-15); BUN 13 mg/dL (7-18); BUN/Creat Ratio 36.5 RATIO (10-20); Calcium,Total 9.7 mg/dL (8.5-10.1); Chloride 102 mmol/L (98-107); Creatinine, Serum 0.36 mg/dL (0.55-1.02); EST Glomerular Filtration Rate 188 mL/min (>60); Est Glom Filt Rate - Afr Amer 228 mL/min (>60); Estimated Creatinine Clearance 46.47 ml/min; Glucose 82 mg/dL (74-106); Potassium 4.1 mmol/L (3.5-5.1); Sodium Level 141 mmol/L (136-145)
[2018-04-21 08:33] LABS: POSITIVE COUNT NO; POSITIVE DIFFERENTIAL NO; POSITIVE MORPHOLOGY NO
[2018-04-21] MEDS: Iron Polysaccharide Complex 150 MG CAPSULE PO (09:11)
[2018-04-21] MEDS: Magnesium Oxide 400 MG Tablet PO (09:12)
[2018-04-21] MEDS: busPIRone 5 MG Tablet PO (09:12)
[2018-04-21] MEDS: dilTIAZem CD 240 MG Capsule PO (09:12)
[2018-04-21] MEDS: Calcium Carb/Vitamin D 1 TABLET Tablet PO ×2 (09:12→11:19)
[2018-04-21 09:13] VITALS: PULSE 88
[2018-04-21] MEDS: Famotidine 20 MG Tablet PO (09:13)
[2018-04-21] MEDS: ROFLUMILAST 500 MCG TABLET PO (09:13)
[2018-04-21] MEDS: Metoprolol Tartrate 25 MG Tablet PO (09:13)
[2018-04-21] MEDS: guaiFENesin 1,200 MG Tablet 1200 MG PO (09:13)
[2018-04-21] MEDS: Sertraline 50 MG Tablet PO (09:13)
[2018-04-21] MEDS: Digoxin 125 MCG Tablet PO (09:13)
[2018-04-21] MEDS: Loratadine 10 MG Tablet PO (09:19)
[2018-04-21 09:20] VITALS: BP 104/52; PULSE 88; RESP 12; TEMP 36.8; O2SAT 94
--- NOTE | 2018-04-21 09:24 | SPU_PTH ---
PATIENT: MATT HOWARD LOC: [facility] U#:[id number] AGE/SX: 77/F ROOM: [facility] RE04/18/[address]: Dr. Chanel Weinberg MD : 1940 BED: 1 DIS: 04/21/2018 SPEC #: [id number] RECD: 04/21/18 09:31 STATUS: NAOMIE RESherin #: [id number] YANY: 04/21/18 09:[address]: Chanel Weinberg DEPT: CYTOLOGY RECD BY: Thor Yañez ENTERED: 04/21/18 10:15 SP TYPE: Sputum Cy OTHR DR: MD Dr. Lobo Savage MD Dr. Robert V Sibilia, MD Tissues: Sputum Procedures: Pap Stain (control) Special Stain Group II Special Stain Group I AFB Stain (control) HEADER OPERATION: Not noted PRE-OP DIAGNOSIS: CAP and epistaxis TISSUE SUBMITTED: Sputum for cytology DIAGNOSIS CYTOLOGY Sputum for cytology (cytospin and smears): Negative for malignant cells. Special stain for acid fast bacilli is negative for organisms; matched control is appropriate. SJ:rg 04/21/18 COMMENT Clinical correlation and appropriate follow up are necessary. Please make reference to previous specimen ([id number]) sputum for cytology and LLL bronchial lavage with diagnosis of negative for malignant cells. CYTOLOGY STUDY Slides are reviewed. The specimen predominantly consists of benign squamous cells, a few squamous metaplastic cells with mild atypia, inflammatory cells and a few macrophages. CYTOLOGY GROSS Received is 1 ml of thick red-laguerre mucous labeled with the patient's name and and designated per the requisition as sputum. Submitted for cytology preparation. 04/21/18 TC:5 CPT: 43196, 99409
[2018-04-21 09:31] LABS: Acid Fast Stain SEE PATHOLOGY REPORT; Cytology, Body Fluid / CSF SEE PATHOLOGY REPORT
--- NOTE | 2018-04-21 10:15 | CASEMGMT ---
Pt is still under TB precautions at this time and this RN CM has not been fit-tested to be able to enter room. Reggie DAVENPORT updated on JOHNSON form, voices understanding, and Reggie DAVENPORT to room to speak with pt regarding JOHNSON form, explanation done and pt signed at this time. Original to chart. Matias DAVENPORT CM
--- NOTE | 2018-04-21 10:54 | PCM.DC ---
- Discharge Diagnoses Current Active Problems: Current Active and Chronic Problems (Last Reviewed 12/03/17 @ 10:29 by Aj Gray MD) Epistaxis (Acute) You will use the following diet at home:: Cardiac Your food should be the consistency of: Regular Your liquids should be the consistency of: Regular/Thin Discharge Activity: Return to Normal Activity Weight Bearing Status: Weight bearing as tolerated Call your doctor if you observe: Shortness of breath, Swelling in the ankles, - - coughing up of blood doesnt resolve Instructions: ED Hemoptysis Additional Instructions: PLEASE DO NOT TAKE XARELTO WHEN YOU GO HOME. STOP IT COMPLETELY AND FOLLOW UP WITH THE CERTIFIED HAND THERAPIST AND CONDITIONER TUMBLER Allergies/Adverse Reactions: Allergies amoxicillin trihydrate [From Augmentin] Allergy (Verified 04/18/18 23:15) Rash gluten Allergy (Verified 04/18/18 23:15) Other potassium clavulanate [From Augmentin] Allergy (Verified 04/18/18 23:15) Rash risperidone [From Risperdal] Adverse Reaction (Severe, Verified 04/18/18 23:15) Hallucinations esomeprazole magnesium [From Nexium] Adverse Reaction (Verified 04/18/18 23:15) Itching furosemide [From Lasix] Adverse Reaction (Verified 04/18/18 23:15) Hives Sulfa (Sulfonamide Antibiotics) Adverse Reaction (Verified 04/18/18 23:15) CONFUSION sulfamethoxazole [From Bactrim] Adverse Reaction (Verified 04/18/18 23:15) CONFUSION trimethoprim [From Bactrim] Adverse Reaction (Verified 04/18/18 23:15) CONFUSION Medications to take at Discharge Levothyroxine [Synthroid] 50 mcg PO DAILY 07/12/17 busPIRone [Buspar] 5 mg PO DAILY 07/23/17 Albuterol Aerosols [Ventolin Aerosols] 2.5 mg INHALATION Q2H PRN PRN vial.neb. 09/13/17 Sertraline HCl [Zoloft] 50 mg PO DAILY 09/13/17 Famotidine [Pepcid] 20 mg PO BID #60 tab 09/24/17 roflumilast 500 mcg tablet 500 mcg PO QDAY 12/03/17 Calcium Carb/Vitamin D [Os-Bud 500MG + D] 1 tablet PO TIDCM 01/26/18 Iron Polysaccharide Complex [Ferrex 150] 150 mg PO DAILYCM 01/26/18 traZODone [Desyrel] 50 mg PO QHS 01/26/18 Magnesium Oxide [Mag-Ox 400] 400 mg PO DAILY@0800 02/04/18 Potassium Chloride 20 meq PO BID 02/04/18 Montelukast [Singulair] 10 mg PO DAILY@1700 #30 tab 02/17/18 Acetaminophen [Tylenol] 650 mg PO PRN 04/19/18 Fluticasone/Salmeterol [Advair 100-50 Diskus] 1 each IH BID 04/19/18 Guaifenesin [Guaifenesin ER] 1 tab PO BID 04/19/18 Loratadine/Pseudo 240/10 [Claritin-D 24 Hr] 1 tab PO DAILY 04/19/18 Metoprolol Tartrate 25 mg PO DAILY 04/19/18 Tiotropium [place] 18 mcg INHALATION DAILY 04/19/18 Zafirlukast 20 mg PO BID 04/19/18 levoFLOXacin tablet [Levaquin tablet] 750 mg PO DAILY #10 tab 04/21/18 The following prescriptions were given: levoFLOXacin tablet [Levaquin tablet] 750 mg PO DAILY #10 tab Primary Care Physician: Alexey Herman MD [Primary Care Provider] - Please follow up with your Primary Care Physician in: one week Test Results: Test results from this visit will be discussed in further detail at your follow-up appointment, if applicable. Please Follow Up With: Parvez King MD When: 1-2 WEEKS Please Follow Up With: Aj Gray MD When: 2 WEEKS Proposed Discharge Date: 04/21/18
--- NOTE | 2018-04-21 10:59 | DCINST_ITS ---
- Discharge Diagnoses Current Active Problems: Current Active and Chronic Problems (Last Reviewed 12/03/17 @ 10:29 by Aj Gray MD) Epistaxis (Acute) You will use the following diet at home:: Cardiac Your food should be the consistency of: Regular Your liquids should be the consistency of: Regular/Thin Discharge Activity: Return to Normal Activity Weight Bearing Status: Weight bearing as tolerated Call your doctor if you observe: Shortness of breath, Swelling in the ankles, - - coughing up of blood doesnt resolve Instructions: ED Hemoptysis Additional Instructions: PLEASE DO NOT TAKE XARELTO WHEN YOU GO HOME. STOP IT COMPLETELY AND FOLLOW UP WITH THE CANDY SPREADER AND VENEER REDRIER Allergies/Adverse Reactions: Allergies amoxicillin trihydrate [From Augmentin] Allergy (Verified 04/18/18 23:15) Rash gluten Allergy (Verified 04/18/18 23:15) Other potassium clavulanate [From Augmentin] Allergy (Verified 04/18/18 23:15) Rash risperidone [From Risperdal] Adverse Reaction (Severe, Verified 04/18/18 23:15) Hallucinations esomeprazole magnesium [From Nexium] Adverse Reaction (Verified 04/18/18 23:15) Itching furosemide [From Lasix] Adverse Reaction (Verified 04/18/18 23:15) Hives Sulfa (Sulfonamide Antibiotics) Adverse Reaction (Verified 04/18/18 23:15) CONFUSION sulfamethoxazole [From Bactrim] Adverse Reaction (Verified 04/18/18 23:15) CONFUSION trimethoprim [From Bactrim] Adverse Reaction (Verified 04/18/18 23:15) CONFUSION Medications to take at Discharge Levothyroxine [Synthroid] 50 mcg PO DAILY 07/12/17 busPIRone [Buspar] 5 mg PO DAILY 07/23/17 Albuterol Aerosols [Ventolin Aerosols] 2.5 mg INHALATION Q2H PRN PRN vial.neb. 09/13/17 Sertraline HCl [Zoloft] 50 mg PO DAILY 09/13/17 Famotidine [Pepcid] 20 mg PO BID #60 tab 09/24/17 roflumilast 500 mcg tablet 500 mcg PO QDAY 12/03/17 Calcium Carb/Vitamin D [Os-Bud 500MG + D] 1 tablet PO TIDCM 01/26/18 Iron Polysaccharide Complex [Ferrex 150] 150 mg PO DAILYCM 01/26/18 traZODone [Desyrel] 50 mg PO QHS 01/26/18 Magnesium Oxide [Mag-Ox 400] 400 mg PO DAILY@0800 02/04/18 Potassium Chloride 20 meq PO BID 02/04/18 Montelukast [Singulair] 10 mg PO DAILY@1700 #30 tab 02/17/18 Acetaminophen [Tylenol] 650 mg PO PRN 04/19/18 Fluticasone/Salmeterol [Advair 100-50 Diskus] 1 each IH BID 04/19/18 Guaifenesin [Guaifenesin ER] 1 tab PO BID 04/19/18 Loratadine/Pseudo 240/10 [Claritin-D 24 Hr] 1 tab PO DAILY 04/19/18 Metoprolol Tartrate 25 mg PO DAILY 04/19/18 Tiotropium [place] 18 mcg INHALATION DAILY 04/19/18 Zafirlukast 20 mg PO BID 04/19/18 levoFLOXacin tablet [Levaquin tablet] 750 mg PO DAILY #10 tab 04/21/18 The following prescriptions were given: levoFLOXacin tablet [Levaquin tablet] 750 mg PO DAILY #10 tab Primary Care Physician: Alexey Herman MD [Primary Care Provider] - Please follow up with your Primary Care Physician in: one week Test Results: Test results from this visit will be discussed in further detail at your follow- up appointment, if applicable. Please Follow Up With: Parvez King MD When: 1-2 WEEKS Please Follow Up With: Aj Gray MD When: 2 WEEKS Proposed Discharge Date: 04/21/18
--- NOTE | 2018-04-21 11:00 | PCM.DC.SUM ---
Discharge Date and Diagnosis Date of Admission: 04/18/18 Date of Discharge: 04/21/18 - Primary Discharge Diagnosis Active and Suspected Problems (Last Reviewed 12/03/17 @ 10:29 by Aj Gray MD) Epistaxis (Acute) - Secondary Discharge Diagnosis Chronic Problems (Last Reviewed 12/03/17 @ 10:29 by Aj Gray MD) Normochromic normocytic anemia (Chronic) Iron deficiency (Chronic) Osteoporosis (Chronic) Vertebral compression fracture (Chronic) History of malnutrition (Chronic) Restless leg syndrome (Chronic) Hypothyroidism (Chronic) Anxiety and depression (Chronic) Insomnia (Chronic) Hypomagnesemia (Chronic) Pulmonary fibrosis (Chronic) Atrial fibrillation (Chronic) Weakness (Chronic) Anxiety (Chronic) Iron deficiency anemia (Chronic) Depression (Chronic) GERD (gastroesophageal reflux disease) (Chronic) Hypokalemia (Chronic) Paroxysmal atrial fibrillation (Chronic) COPD (chronic obstructive pulmonary disease) (Chronic) Chronic respiratory failure with hypoxia (Chronic) Hospital Course and Treatment Imaging Results: Laboratory Tests 04/18/18 04/18/18 04/18/18 19:59 19:59 20:34 WBC 5.5 RBC 3.55 L Hgb 11.2 L Hct 35.6 L MCV 100.3 H MCH 31.5 MCHC 31.5 L RDW 12.4 RDW Differential 44.5 H Plt Count 180 MPV 9.8 Immature Gran % (Auto) 0.200 Neut % (Auto) 69.8 Lymph % (Auto) 14.2 L [place] % (Auto) 8.9 Eos % (Auto) 6.5 H Baso % (Auto) 0.4 Absolute Neuts (auto) 3.9 Absolute Lymphs (auto) 0.78 L Total Counted Not Reportable Differential Comment PT INR APTT Sodium 139 Potassium 3.4 L Chloride 99 Carbon Dioxide 38.0 H Anion Gap 2 L BUN 9 Creatinine 0.69 Estim Creat Clear Calc 44.21 Est GFR (MDRD) Af Amer 107 Est GFR (MDRD) Non-Af 88 BUN/Creatinine Ratio 13.1 Glucose 106 Calcium 10.7 H Magnesium Troponin I < 0.015 Urine Color Yellow Urine Clarity Clear Urine pH 7.0 Ur Specific [place] 1.010 Urine Protein Negative Urine Glucose (UA) Normal Urine Ketones Negative Urine Occult Blood Negative Urine Nitrite Negative Urine Bilirubin Negative Urine Urobilinogen Normal Ur Leukocyte Esterase Negative Urine RBC 0 SEEN Urine WBC 0 SEEN Ur Squamous Epith Cells 0-5 SEEN Urine Bacteria 0 SEEN Urine Mucus 0 SEEN Fluid Source Fluid Color Fluid Appearance Fluid WBC Fluid RBC Fluid Tot Cell Count Fluid Neutrophils Fluid Lymphocytes Fluid Other Cells Fl Pathologist Comment Fluid Comment 2 04/19/18 04/19/18 04/20/18 11:34 11:34 05:45 WBC 4.7 RBC 3.36 L Hgb 10.5 L Hct 33.9 L MCV 100.9 H MCH 31.3 MCHC 31.0 L RDW 12.4 RDW Differential 44.2 H Plt Count 171 MPV 9.8 Immature Gran % (Auto) 0.200 Neut % (Auto) 75.9 H Lymph % (Auto) 12.5 L [place] % (Auto) 7.4 Eos % (Auto) 3.8 Baso % (Auto) 0.2 Absolute Neuts (auto) 3.6 Absolute Lymphs (auto) 0.59 L Total Counted Not Reportable Differential Comment SCANNED PT 15.2 H INR 1.2 APTT 35.1 Sodium 142 Potassium 3.6 Chloride 100 Carbon Dioxide 37.0 H Anion Gap 5 BUN 9 Creatinine 0.50 L Estim Creat Clear Calc 46.47 Est GFR (MDRD) Af Amer 154 Est GFR (MDRD) Non-Af 128 BUN/Creatinine Ratio 18.0 Glucose 114 H Calcium 10.1 Magnesium Troponin I Urine Color Urine Clarity Urine pH Ur Specific [place] Urine Protein Urine Glucose (UA) Urine Ketones Urine Occult Blood Urine Nitrite Urine Bilirubin Urine Urobilinogen Ur Leukocyte Esterase Urine RBC Urine WBC Ur Squamous Epith Cells Urine Bacteria Urine Mucus Fluid Source Fluid Color Fluid Appearance Fluid WBC Fluid RBC Fluid Tot Cell Count Fluid Neutrophils Fluid Lymphocytes Fluid Other Cells Fl Pathologist Comment Fluid Comment 2 04/20/18 04/20/18 04/20/18 05:45 05:45 05:45 WBC 4.8 RBC 3.72 L Hgb 11.3 L Hct 37.1 MCV 99.7 H MCH 30.4 MCHC 30.5 L RDW 12.8 RDW Differential 46.7 H Plt Count 180 MPV 10.2 Immature Gran % (Auto) 0.200 Neut % (Auto) 68.1 Lymph % (Auto) 14.6 L [place] % (Auto) 10.6 H Eos % (Auto) 6.3 H Baso % (Auto) 0.2 Absolute Neuts (auto) 3.3 Absolute Lymphs (auto) 0.70 L Total Counted Not Reportable Differential Comment PT INR APTT Sodium 143 Potassium 3.3 L Chloride 100 Carbon Dioxide 39.0 H Anion Gap 4 L BUN 9 Creatinine 0.40 L Estim Creat Clear Calc 46.47 Est GFR (MDRD) Af Amer 198 Est GFR (MDRD) Non-Af 163 BUN/Creatinine Ratio 22.3 H Glucose 83 Calcium 10.1 Magnesium 1.4 L Troponin I Urine Color Urine Clarity Urine pH Ur Specific [place] Urine Protein Urine Glucose (UA) Urine Ketones Urine Occult Blood Urine Nitrite Urine Bilirubin Urine Urobilinogen Ur Leukocyte Esterase Urine RBC Urine WBC Ur Squamous Epith Cells Urine Bacteria Urine Mucus Fluid Source Fluid Color Fluid Appearance Fluid WBC Fluid RBC Fluid Tot Cell Count Fluid Neutrophils Fluid Lymphocytes Fluid Other Cells Fl Pathologist Comment Fluid Comment 2 04/20/18 04/21/18 04/21/18 13:31 07:48 07:48 WBC 5.9 RBC 3.48 L Hgb 10.7 L Hct 35.0 L MCV 100.6 H MCH 30.7 MCHC 30.6 L RDW 12.3 RDW Differential 44.0 H Plt Count 188 MPV 10.2 Immature Gran % (Auto) 0.200 Neut % (Auto) 74.0 H Lymph % (Auto) 14.5 L [place] % (Auto) 7.0 Eos % (Auto) 4.1 Baso % (Auto) 0.2 Absolute Neuts (auto) 4.4 Absolute Lymphs (auto) 0.85 Total Counted Not Reportable Differential Comment PT INR APTT Sodium 141 Potassium 4.1 Chloride 102 Carbon Dioxide 32.0 Anion Gap 7 BUN 13 Creatinine 0.36 L Estim Creat Clear Calc 46.47 Est GFR (MDRD) Af Amer 228 Est GFR (MDRD) Non-Af 188 BUN/Creatinine Ratio 36.5 H Glucose 82 Calcium 9.7 Magnesium Troponin I Urine Color Urine Clarity Urine pH Ur Specific [place] Urine Protein Urine Glucose (UA) Urine Ketones Urine Occult Blood Urine Nitrite Urine Bilirubin Urine Urobilinogen Ur Leukocyte Esterase Urine RBC Urine WBC Ur Squamous Epith Cells Urine Bacteria Urine Mucus Fluid Source BRONCHIAL LAVAGE Fluid Color RED Fluid Appearance TURBID Fluid WBC 2369 Fluid RBC 4678 Fluid Tot Cell Count TNP Fluid Neutrophils 21 Fluid Lymphocytes 49 Fluid Other Cells 30 Fl Pathologist Comment May follow Fluid Comment 2 Not Reportable Diagnostic Data Chest X-Ray 04/20/18 10:30 IMPRESSION: Hyperinflation. Stable chronic interstitial fibrosis worse in the left lung base. Electronically Signed: Ho Schumacher MD at 11:00 EDT Tel [phone], Service support , Operations: None Procedures: Bronchoscopy Summary of Care Provided: The patient is a 77 year old F with a history of COPD, interstitial lung disease and paroxysmal atrial fibrillation on Xarelto. She was admitted by the ED on 04/01/2018 with a complaint of shortness of breath improved bleeding from the nostrils. She had also been coughing up blood for about 2 weeks prior to admission and had also had hematuria bleeding prior to admission. Of note, patient had been due to follow-up with a crane oiler and had apparently been told to stop taking Xarelto by the crane oiler previously. However she was convinced by a friend and family members to resume Xarelto and the bleeding subsequently started again. His chest x-ray in the ED showed left lower lobe pneumonia and she was started on IV ceftriaxone and azithromycin for community-acquired pneumonia. This was subsequently switched to IV levofloxacin. Patient remained stable, and she was managed for community-acquired pneumonia and hemoptysis most likely due to Xarelto. She had had an abdominal ultrasound done on account of vaginal bleeding which was negative per crane oiler and patient. She had a bronchoscopy on 04/20/2018 by pulmonology and per discussion with pulmonology, it showed blood on the vocal cords, trachea and left lung. Biopsies could not be taken due to bleeding. This, crane oiler believes is likely due to Xarelto intake and very less likely due to tuberculosis as patient did not have any symptoms whatsoever pointing towards thoughts such as night sweats or weight loss no exposure to anybody with TB or any history of travel. Gram stain of left lower lobe bronchial lavage showed no white cells and no organisms. Gram stain of sputum showed rare white blood cells, 4+ gram-negative rods and 1+ gram-positive cocci. Patient remained stable, with very scanty hemoptysis at time of discharge. She was discharged home on 05-07 with a 10 day course of p.o. levofloxacin 750 mg daily. She is to follow-up with crane oiler in 1-2 weeks, and to follow-up with her primary care doctor. Xarelto stopped completely. She is to follow-up with pulmonology and cardiology for decision to be made about whether Xarelto will be restarted. Patient remained on her baseline of 3 L of oxygen during admission and was discharged home on this. Patient seen and examined prior to discharge. She had no complaints and felt well. She was eager to go home. She denied any fever or chills, cough or chest pain, shortness of breath, any abdominal pain, any diarrhea vomiting. Review of systems otherwise negative. Vital Signs Height 5 ft 9 in Weight: 135 lb 9.349 oz Weight in Pounds 135.6 lbs Pulse Ox 94 Temperature 98.3 F Pulse Rate 88 Respiratory Rate 12 Blood Pressure 104/52 Blood Pressure Position Semi-Fowlers []General: Alert, Oriented x3, Cooperative, No apparent distress HEENT: Atraumatic, PERRLA, EOMI, Normocephalic, - - has dried blood in her nostrils Oral: Moist Mucosa Neck: Supple, No JVD, Negative Carotid Bruits Lungs: - - has mildly decreased breath sounds in right lower lung vazquez, no crackles or wheezing auscultated. Cardiovascular: Regular rate, Regular Rhythm, Normal S1, Normal S2, No murmurs Abdomen: Bowel Sounds Present, Soft, Non Tender Extremities: No clubbing, No cyanosis, No edema, Capillary Refill Less than 3 Seconds Skin: No rashes, No breakdown Musculoskeletal: No Tenderness to Palpation of Joints or Extremities Lymphatic: No Cervical, Supraclavicular, or Inguinal Adenopathy Neurological: Cranial nerves II-XII grossly intact, Motor Exam 5/5 strength throughout Psych/Mental Status: Normal Affect, Appropriate, Alert and oriented to time, place, person, mood and affect Plan as stated above. Sputum for acid-fast bacilli and bronchial lavage aspirate for acid-fast bacilli were pending at time of discharge. Discussed with pulmonology, and he thinks it has very little unlikely that patient has TB. Therefore comfortable with patient being discharged today, to follow up in two weeks. Discharge Diet: 2000 mg Sodium Diet Discharge Activity: Return to Normal Activity Weight Bearing Status: Weight bearing as tolerated Call your doctor if you observe: Shortness of breath, Swelling in the ankles, - - coughing up of blood doesnt resolve Home Medications: Medications to take at Discharge Levothyroxine [Synthroid] 50 mcg PO DAILY 07/12/17 busPIRone [Buspar] 5 mg PO DAILY 07/23/17 Albuterol Aerosols [Ventolin Aerosols] 2.5 mg INHALATION Q2H PRN PRN vial.neb. 09/13/17 Sertraline HCl [Zoloft] 50 mg PO DAILY 09/13/17 Famotidine [Pepcid] 20 mg PO BID #60 tab 09/24/17 roflumilast 500 mcg tablet 500 mcg PO QDAY 12/03/17 Calcium Carb/Vitamin D [Os-Bud 500MG + D] 1 tablet PO TIDCM 01/26/18 Iron Polysaccharide Complex [Ferrex 150] 150 mg PO DAILYCM 01/26/18 traZODone [Desyrel] 50 mg PO QHS 01/26/18 Magnesium Oxide [Mag-Ox 400] 400 mg PO DAILY@0800 02/04/18 Potassium Chloride 20 meq PO BID 02/04/18 Montelukast [Singulair] 10 mg PO DAILY@1700 #30 tab 02/17/18 Acetaminophen [Tylenol] 650 mg PO PRN 04/19/18 Fluticasone/Salmeterol [Advair 100-50 Diskus] 1 each IH BID 04/19/18 Guaifenesin [Guaifenesin ER] 1 tab PO BID 04/19/18 Loratadine/Pseudo 240/10 [Claritin-D 24 Hr] 1 tab PO DAILY 04/19/18 Metoprolol Tartrate 25 mg PO DAILY 04/19/18 Tiotropium [place] 18 mcg INHALATION DAILY 04/19/18 Zafirlukast 20 mg PO BID 04/19/18 levoFLOXacin tablet [Levaquin tablet] 750 mg PO DAILY #10 tab 04/21/18 Following Prescrptions Were Given to Patient: levoFLOXacin tablet [Levaquin tablet] 750 mg PO DAILY #10 tab Primary Care Physician: Alexey Herman MD [Primary Care Provider] - Please follow up with your Primary Care Physician in: one week Please Follow Up With: Parvez King MD When: 1-2 WEEKS Please Follow Up With: Aj Gray MD When: 2 WEEKS Patient Instructions: ED Hemoptysis Additional Instructions: PLEASE STOP TAKING XARELTO. Disposition: Home Minutes spent on discharge:: 40 Patient Condition:: Stable Medical Necessity - Tobacco Use Smoking Status: Former smoker Meaningful Use Info Meaningful Use Diagnoses (Choose all that apply): None applicable Code Visit Inpatient E&M: 91939 Disch Hosp
--- NOTE | 2018-04-21 11:07 | DS.PCM_ITS ---
Discharge Date and Diagnosis Date of Admission: 04/18/18 Date of Discharge: 04/21/18 - Primary Discharge Diagnosis Active and Suspected Problems (Last Reviewed 12/03/17 @ 10:29 by Aj Gray MD ) Epistaxis (Acute) - Secondary Discharge Diagnosis Chronic Problems (Last Reviewed 12/03/17 @ 10:29 by Aj Gray MD) Normochromic normocytic anemia (Chronic) Iron deficiency (Chronic) Osteoporosis (Chronic) Vertebral compression fracture (Chronic) History of malnutrition (Chronic) Restless leg syndrome (Chronic) Hypothyroidism (Chronic) Anxiety and depression (Chronic) Insomnia (Chronic) Hypomagnesemia (Chronic) Pulmonary fibrosis (Chronic) Atrial fibrillation (Chronic) Weakness (Chronic) Anxiety (Chronic) Iron deficiency anemia (Chronic) Depression (Chronic) GERD (gastroesophageal reflux disease) (Chronic) Hypokalemia (Chronic) Paroxysmal atrial fibrillation (Chronic) COPD (chronic obstructive pulmonary disease) (Chronic) Chronic respiratory failure with hypoxia (Chronic) Hospital Course and Treatment Imaging Results: Laboratory Tests 04/18/18 04/18/18 04/18/18 19:59 19:59 20:34 WBC 5.5 RBC 3.55 L Hgb 11.2 L Hct 35.6 L MCV 100.3 H MCH 31.5 MCHC 31.5 L RDW 12.4 RDW Differential 44.5 H Plt Count 180 MPV 9.8 Immature Gran % (Auto) 0.200 Neut % (Auto) 69.8 Lymph % (Auto) 14.2 L [place] % (Auto) 8.9 Eos % (Auto) 6.5 H Baso % (Auto) 0.4 Absolute Neuts (auto) 3.9 Absolute Lymphs (auto) 0.78 L Total Counted Not Reportable Differential Comment PT INR APTT Sodium 139 Potassium 3.4 L Chloride 99 Carbon Dioxide 38.0 H Anion Gap 2 L BUN 9 Creatinine 0.69 Estim Creat Clear Calc 44.21 Est GFR (MDRD) Af Amer 107 Est GFR (MDRD) Non-Af 88 BUN/Creatinine Ratio 13.1 Glucose 106 Calcium 10.7 H Magnesium Troponin I < 0.015 Urine Color Yellow Urine Clarity Clear Urine pH 7.0 Ur Specific [place] 1.010 Urine Protein Negative Urine Glucose (UA) Normal Urine Ketones Negative Urine Occult Blood Negative Urine Nitrite Negative Urine Bilirubin Negative Urine Urobilinogen Normal Ur Leukocyte Esterase Negative Urine RBC 0 SEEN Urine WBC 0 SEEN Ur Squamous Epith Cells 0-5 SEEN Urine Bacteria 0 SEEN Urine Mucus 0 SEEN Fluid Source Fluid Color Fluid Appearance Fluid WBC Fluid RBC Fluid Tot Cell Count Fluid Neutrophils Fluid Lymphocytes Fluid Other Cells Fl Pathologist Comment Fluid Comment 2 04/19/18 04/19/18 04/20/18 11:34 11:34 05:45 WBC 4.7 RBC 3.36 L Hgb 10.5 L Hct 33.9 L MCV 100.9 H MCH 31.3 MCHC 31.0 L RDW 12.4 RDW Differential 44.2 H Plt Count 171 MPV 9.8 Immature Gran % (Auto) 0.200 Neut % (Auto) 75.9 H Lymph % (Auto) 12.5 L [place] % (Auto) 7.4 Eos % (Auto) 3.8 Baso % (Auto) 0.2 Absolute Neuts (auto) 3.6 Absolute Lymphs (auto) 0.59 L Total Counted Not Reportable Differential Comment SCANNED PT 15.2 H INR 1.2 APTT 35.1 Sodium 142 Potassium 3.6 Chloride 100 Carbon Dioxide 37.0 H Anion Gap 5 BUN 9 Creatinine 0.50 L Estim Creat Clear Calc 46.47 Est GFR (MDRD) Af Amer 154 Est GFR (MDRD) Non-Af 128 BUN/Creatinine Ratio 18.0 Glucose 114 H Calcium 10.1 Magnesium Troponin I Urine Color Urine Clarity Urine pH Ur Specific [place] Urine Protein Urine Glucose (UA) Urine Ketones Urine Occult Blood Urine Nitrite Urine Bilirubin Urine Urobilinogen Ur Leukocyte Esterase Urine RBC Urine WBC Ur Squamous Epith Cells Urine Bacteria Urine Mucus Fluid Source Fluid Color Fluid Appearance Fluid WBC Fluid RBC Fluid Tot Cell Count Fluid Neutrophils Fluid Lymphocytes Fluid Other Cells Fl Pathologist Comment Fluid Comment 2 04/20/18 04/20/18 04/20/18 05:45 05:45 05:45 WBC 4.8 RBC 3.72 L Hgb 11.3 L Hct 37.1 MCV 99.7 H MCH 30.4 MCHC 30.5 L RDW 12.8 RDW Differential 46.7 H Plt Count 180 MPV 10.2 Immature Gran % (Auto) 0.200 Neut % (Auto) 68.1 Lymph % (Auto) 14.6 L [place] % (Auto) 10.6 H Eos % (Auto) 6.3 H Baso % (Auto) 0.2 Absolute Neuts (auto) 3.3 Absolute Lymphs (auto) 0.70 L Total Counted Not Reportable Differential Comment PT INR APTT Sodium 143 Potassium 3.3 L Chloride 100 Carbon Dioxide 39.0 H Anion Gap 4 L BUN 9 Creatinine 0.40 L Estim Creat Clear Calc 46.47 Est GFR (MDRD) Af Amer 198 Est GFR (MDRD) Non-Af 163 BUN/Creatinine Ratio 22.3 H Glucose 83 Calcium 10.1 Magnesium 1.4 L Troponin I Urine Color Urine Clarity Urine pH Ur Specific [place] Urine Protein Urine Glucose (UA) Urine Ketones Urine Occult Blood Urine Nitrite Urine Bilirubin Urine Urobilinogen Ur Leukocyte Esterase Urine RBC Urine WBC Ur Squamous Epith Cells Urine Bacteria Urine Mucus Fluid Source Fluid Color Fluid Appearance Fluid WBC Fluid RBC Fluid Tot Cell Count Fluid Neutrophils Fluid Lymphocytes Fluid Other Cells Fl Pathologist Comment Fluid Comment 2 04/20/18 04/21/18 04/21/18 13:31 07:48 07:48 WBC 5.9 RBC 3.48 L Hgb 10.7 L Hct 35.0 L MCV 100.6 H MCH 30.7 MCHC 30.6 L RDW 12.3 RDW Differential 44.0 H Plt Count 188 MPV 10.2 Immature Gran % (Auto) 0.200 Neut % (Auto) 74.0 H Lymph % (Auto) 14.5 L [place] % (Auto) 7.0 Eos % (Auto) 4.1 Baso % (Auto) 0.2 Absolute Neuts (auto) 4.4 Absolute Lymphs (auto) 0.85 Total Counted Not Reportable Differential Comment PT INR APTT Sodium 141 Potassium 4.1 Chloride 102 Carbon Dioxide 32.0 Anion Gap 7 BUN 13 Creatinine 0.36 L Estim Creat Clear Calc 46.47 Est GFR (MDRD) Af Amer 228 Est GFR (MDRD) Non-Af 188 BUN/Creatinine Ratio 36.5 H Glucose 82 Calcium 9.7 Magnesium Troponin I Urine Color Urine Clarity Urine pH Ur Specific [place] Urine Protein Urine Glucose (UA) Urine Ketones Urine Occult Blood Urine Nitrite Urine Bilirubin Urine Urobilinogen Ur Leukocyte Esterase Urine RBC Urine WBC Ur Squamous Epith Cells Urine Bacteria Urine Mucus Fluid Source BRONCHIAL LAVAGE Fluid Color RED Fluid Appearance TURBID Fluid WBC 2369 Fluid RBC 4678 Fluid Tot Cell Count TNP Fluid Neutrophils 21 Fluid Lymphocytes 49 Fluid Other Cells 30 Fl Pathologist Comment May follow Fluid Comment 2 Not Reportable Diagnostic Data Chest X-Ray 04/20/18 10:30 IMPRESSION: Hyperinflation. Stable chronic interstitial fibrosis worse in the left lung base. Electronically Signed: Ho Schumacher MD at 11:00 EDT Tel [phone], Service support , Operations: None Procedures: Bronchoscopy Summary of Care Provided: The patient is a 77 year old F with a history of COPD, interstitial lung disease and paroxysmal atrial fibrillation on Xarelto. She was admitted by the ED on 04/01/2018 with a complaint of shortness of breath improved bleeding from the nostrils. She had also been coughing up blood for about 2 weeks prior to admission and had also had hematuria bleeding prior to admission. Of note, patient had been due to follow-up with a hogshead stock clerk and had apparently been told to stop taking Xarelto by the hogshead stock clerk previously. However she was convinced by a friend and family members to resume Xarelto and the bleeding subsequently started again. His chest x-ray in the ED showed left lower lobe pneumonia and she was started on IV ceftriaxone and azithromycin for community- acquired pneumonia. This was subsequently switched to IV levofloxacin. Patient remained stable, and she was managed for community-acquired pneumonia and hemoptysis most likely due to Xarelto. She had had an abdominal ultrasound done on account of vaginal bleeding which was negative per hogshead stock clerk and patient. She had a bronchoscopy on 04/20/2018 by pulmonology and per discussion with pulmonology, it showed blood on the vocal cords, trachea and left lung. Biopsies could not be taken due to bleeding. This, hogshead stock clerk believes is likely due to Xarelto intake and very less likely due to tuberculosis as patient did not have any symptoms whatsoever pointing towards thoughts such as night sweats or weight loss no exposure to anybody with TB or any history of travel. Gram stain of left lower lobe bronchial lavage showed no white cells and no organisms. Gram stain of sputum showed rare white blood cells, 4+ gram- negative rods and 1+ gram-positive cocci. Patient remained stable, with very scanty hemoptysis at time of discharge. She was discharged home on 05-07 with a 10 day course of p.o. levofloxacin 750 mg daily. She is to follow-up with hogshead stock clerk in 1-2 weeks, and to follow-up with her primary care doctor. Xarelto stopped completely. She is to follow-up with pulmonology and cardiology for decision to be made about whether Xarelto will be restarted. Patient remained on her baseline of 3 L of oxygen during admission and was discharged home on this. Patient seen and examined prior to discharge. She had no complaints and felt well. She was eager to go home. She denied any fever or chills, cough or chest pain, shortness of breath, any abdominal pain, any diarrhea vomiting. Review of systems otherwise negative. Vital Signs Height 5 ft 9 in Weight: 135 lb 9.349 oz Weight in Pounds 135.6 lbs Pulse Ox 94 Temperature 98.3 F Pulse Rate 88 Respiratory Rate 12 Blood Pressure 104/52 Blood Pressure Position Semi-Fowlers []General: Alert, Oriented x3, Cooperative, No apparent distress HEENT: Atraumatic, PERRLA, EOMI, Normocephalic, - - has dried blood in her nostrils Oral: Moist Mucosa Neck: Supple, No JVD, Negative Carotid Bruits Lungs: - - has mildly decreased breath sounds in right lower lung vazquez, no crackles or wheezing auscultated. Cardiovascular: Regular rate, Regular Rhythm, Normal S1, Normal S2, No murmurs Abdomen: Bowel Sounds Present, Soft, Non Tender Extremities: No clubbing, No cyanosis, No edema, Capillary Refill Less than 3 Seconds Skin: No rashes, No breakdown Musculoskeletal: No Tenderness to Palpation of Joints or Extremities Lymphatic: No Cervical, Supraclavicular, or Inguinal Adenopathy Neurological: Cranial nerves II-XII grossly intact, Motor Exam 5/5 strength throughout Psych/Mental Status: Normal Affect, Appropriate, Alert and oriented to time, place, person, mood and affect Plan as stated above. Sputum for acid-fast bacilli and bronchial lavage aspirate for acid-fast bacilli were pending at time of discharge. Discussed with pulmonology, and he thinks it has very little unlikely that patient has TB. Therefore comfortable with patient being discharged today, to follow up in two weeks. Discharge Diet: 2000 mg Sodium Diet Discharge Activity: Return to Normal Activity Weight Bearing Status: Weight bearing as tolerated Call your doctor if you observe: Shortness of breath, Swelling in the ankles, - - coughing up of blood doesnt resolve Home Medications: Medications to take at Discharge Levothyroxine [Synthroid] 50 mcg PO DAILY 07/12/17 busPIRone [Buspar] 5 mg PO DAILY 07/23/17 Albuterol Aerosols [Ventolin Aerosols] 2.5 mg INHALATION Q2H PRN PRN vial.neb. 09/13/17 Sertraline HCl [Zoloft] 50 mg PO DAILY 09/13/17 Famotidine [Pepcid] 20 mg PO BID #60 tab 09/24/17 roflumilast 500 mcg tablet 500 mcg PO QDAY 12/03/17 Calcium Carb/Vitamin D [Os-Bud 500MG + D] 1 tablet PO TIDCM 01/26/18 Iron Polysaccharide Complex [Ferrex 150] 150 mg PO DAILYCM 01/26/18 traZODone [Desyrel] 50 mg PO QHS 01/26/18 Magnesium Oxide [Mag-Ox 400] 400 mg PO DAILY@0800 02/04/18 Potassium Chloride 20 meq PO BID 02/04/18 Montelukast [Singulair] 10 mg PO DAILY@1700 #30 tab 02/17/18 Acetaminophen [Tylenol] 650 mg PO PRN 04/19/18 Fluticasone/Salmeterol [Advair 100-50 Diskus] 1 each IH BID 04/19/18 Guaifenesin [Guaifenesin ER] 1 tab PO BID 04/19/18 Loratadine/Pseudo 240/10 [Claritin-D 24 Hr] 1 tab PO DAILY 04/19/18 Metoprolol Tartrate 25 mg PO DAILY 04/19/18 Tiotropium [place] 18 mcg INHALATION DAILY 04/19/18 Zafirlukast 20 mg PO BID 04/19/18 levoFLOXacin tablet [Levaquin tablet] 750 mg PO DAILY #10 tab 04/21/18 Following Prescrptions Were Given to Patient: levoFLOXacin tablet [Levaquin tablet] 750 mg PO DAILY #10 tab Primary Care Physician: Alexey Herman MD [Primary Care Provider] - Please follow up with your Primary Care Physician in: one week Please Follow Up With: Parvez King MD When: 1-2 WEEKS Please Follow Up With: Aj Gray MD When: 2 WEEKS Patient Instructions: ED Hemoptysis Additional Instructions: PLEASE STOP TAKING XARELTO. Disposition: Home Minutes spent on discharge:: 40 Patient Condition:: Stable Medical Necessity - Tobacco Use Smoking Status: Former smoker Meaningful Use Info Meaningful Use Diagnoses (Choose all that apply): None applicable Code Visit Inpatient E&M: 45748 Disch Hosp
[2018-04-21 13:53] LABS: Pathologist Comment/Body Fluid Reviewed
== END 2018-04-21 11:00 | disposition home or self-care (01) ==
LOC: ED 19:39 → MS3 22:03 → PCU 04-19 20:30
PROVIDERS: Internal Medicine Pulmonary Disease; Physician Assistant; Admitting Provider Family Medicine; Emergency Provider Emergency Medicine; Family Provider Family Medicine; PCP Family Medicine; Visit Provider Student in an Organized Health Care Education/Training Program
PROC: 0BJ08ZZ Inspection of Tracheobronchial Tree, Via Natural or Artificial Opening Endoscopic (ICD-10-PCS; CPT 31622; principal; 2018-04-20 11:45)
DX: R04.0 Epistaxis (principal); J18.9 Pneumonia, unspecified organism; G25.81 Restless legs syndrome; E03.9 Hypothyroidism, unspecified; F41.9 Anxiety disorder, unspecified; F32.9 Major depressive disorder, single episode, unspecified; J84.10 Pulmonary fibrosis, unspecified; K21.9 Gastro-esophageal reflux disease without esophagitis; J44.9 Chronic obstructive pulmonary disease, unspecified; D68.32 Hemorrhagic disorder due to extrinsic circulating anticoagulants; T45.515A Adverse effect of anticoagulants, initial encounter; I48.2 Chronic atrial fibrillation; I48.0 Paroxysmal atrial fibrillation; D50.9 Iron deficiency anemia, unspecified; J96.11 Chronic respiratory failure with hypoxia; Z79.899 Other long term (current) drug therapy; Z79.01 Long term (current) use of anticoagulants; Z87.891 Personal history of nicotine dependence
CPT/HCPCS: 00520; 31622; 36415; 71045; 71046; 80048; 81001; 83735; 84484; 85025; 85610; 85730; 87015; 87070; 87101; 87106; 87116; 87205; 87206; 88108; 88305; 88312; 88313; 89050; 93005; 94640; 96365; 96366; 96367; 99218; 99283; J7030; G0378

== ENCOUNTER → 2018-08-26 13:25 | Outpatient (CLI) | payer MEDICARE, OTHER, SELFPAY ==
--- NOTE | 2018-08-26 13:29 | RAD_ITS ---
STUDY: X-RAY CHEST REASON FOR EXAM: Female, 78 years old. Respiratory failure. TECHNIQUE: PA and lateral views of the chest. COMPARISON: 02/25/2018 and 04/20/2018. FINDINGS: There is hyperinflation of the lungs consistent with chronic obstructive lung disease (COPD). The previously noted lower lung infiltrates have cleared. There is mild stranding/scarring in the left lower lung. There is no evidence of pleural effusions although there is minimal blunting of the costophrenic angles. Normal size heart. Normal mediastinum and chris. Normal visualized pulmonary arteries. There is atherosclerotic calcification of the aortic arch with tortuosity. There again is moderate compression fracture of the line, T10 and T5 vertebrae. Normal visualized ribs, clavicles, and shoulders. There is no demonstrated abnormality of the visualized soft tissue structures of the upper abdomen. RAD/Chest PA and Lateral IMPRESSION: Severe COPD changes. No new infiltrate is seen. Electronically Signed: Maximo Hopkins MD at 13:16 EST Tel , Service support ,
== END ==
PROVIDERS: Family Provider Family Medicine; PCP Family Medicine; Referring Provider Internal Medicine Pulmonary Disease; Visit Provider Internal Medicine Pulmonary Disease
DX: J96.90 Respiratory failure, unspecified, unspecified whether with hypoxia or hypercapnia (principal); J44.9 Chronic obstructive pulmonary disease, unspecified
CPT/HCPCS: 71046

== ENCOUNTER → 2019-04-10 08:21 | Outpatient (CLI) | payer MEDICARE, OTHER, SELFPAY ==
[2018-12-06 14:54] VITALS: BMI 21.2
--- NOTE | 2019-04-10 09:00 | PET_ITS ---
EXAMINATION: FDG PET CT INDICATIONS: A 78-year-old female with reported history of pulmonary nodularity. COMPARISON EXAMINATION: CT of the chest report dated 03/21/19. INDEX LESION SIZE SUV INTERPRETATION Right upper hemithorax pulmonary parenchyma, right upper lobe 11.0 mm (frame 216) 0.8 Quantitative criteria for viable neoplasm are not fulfilled, sequential radiologic investigation recommended Right lower hemithorax pulmonary parenchyma, linear 1.3 Quantitative criteria for viable neoplasm are not fulfilled, sequential radiologic investigation recommended TECHNIQUE: Following the intravenous administration of 15 mCi of F-18 deoxyglucose, multiplanar image acquisitions of the neck, chest, abdomen and pelvis to level of mid thigh, obtained at one hour post radiopharmaceutical administration contemporaneously interpreted with the current CT of the neck, chest, abdomen and pelvis to level of mid thigh, dated 04/10/[address] of the chest report dated 03/21/19 reveal: FINDINGS: 1. Barely perceptible increased glucose concentration is observed in the right upper posterior hemithorax pulmonary parenchyma, right upper lobe generating a calculated maximum standard uptake value of 0.8. The maximal axial diameter of the corresponding parenchymal density on review of CT of the chest dated 04/10/19 is 11.0 mm (transverse). 2. A linear increase in FDG distribution is manifest in the right mid-lower posterior lung, right lower lobe generating a calculated maximum standard uptake value of 1.3. 3. Normal physiologic distribution of the radiopharmaceutical is apparent in the hepatic (3.0) and splenic parenchyma, both renal units, bladder and visualized intestinal tract. There is uniform distribution of the radiopharmaceutical concentration defined in the visualized cerebellar hemispheres and cerebral cortical structures.? Diffuse intestinal tract activity is noted throughout all four quadrants of the abdominal-pelvic retroperitoneum, mesentery consistent with normal physiologic distribution of the radiopharmaceutical. Prominent radiopharmaceutical concentration is defined in the pharyngeal mucosal space to the right and to a lesser extent left of the midline without evidence of definitive soft tissue thickening on review of CT of the neck dated 04/10/19. Prominent collecting system activity is defined in the left and to a lesser extent right renal units. Pertinent CT findings are as follows. CHEST: Significant emphysematous change is noted in the bilateral upper-lower lung zones. There are no additional parenchymal densities-nodules defined in the right-left hemithorax demonstrating discernible increased glucose metabolism. Bilateral axillary soft tissue densities with fatty hilus formation are non-glucose avid. Atherosclerotic calcification is defined in the thoracic aorta without evidence of dilatation, aneurysm formation. Coronary arterial calcification is observed. A partially-calcified density noted in the right lower posteromedial hemithorax demonstrates no evidence of quantitatively significant enhanced FDG uptake. ABDOMEN AND PELVIS: An attenuation abnormality noted in the right lobe of the hepatic parenchyma demonstrates photopenia on the metabolic data set commensurate with cyst formation. The gallbladder is surgically absent. Atherosclerotic calcification is defined in the abdominal aorta without evidence of dilatation, aneurysm formation. Pelvic arterial calcification is observed. Bilateral subcentimeter inguinal soft tissue densities with fatty hilus formation are ametabolic. 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 A rounded calcified density noted in the left lower anterior hemipelvis demonstrates no evidence of increased FDG distribution. SKELETAL: Degenerative changes defined in the cervical, thoracic and lumbar spine demonstrate no evidence for glucose hypermetabolism. Diffuse demineralization is defined. PET/PET/CT Tumor Base -Thigh Init IMPRESSION: 1. NEGATIVE EXAMINATION. There is no definitive quantitative scintigraphic evidence of viable neoplasm. 2. Subtle enhanced fluorine labeled glucose distribution noted in the right upper hemithorax pulmonary parenchyma, right upper and right lower lobes do not fulfill quantitative criteria for viable neoplasm. (Crespo et al, Annals of Internal Medicine, 138:724, 2003). 3. Metabolic and/or anatomic stability may be ensured in the right hemithorax pulmonary parenchymal abnormality with repeat FDG PET study and/or CT of the thorax in three months. (Xiu, Journal of Nuclear Medicine 45:88, P2004. Shira, Seminars in Thoracic and Cardiovascular Surgery 14:292, 2002). 4. Facilitated uptake noted in the bilateral pharyngeal mucosal space is most consistent with physiologic distribution of the radiopharmaceutical. If soft tissue mass formation is a diagnostic consideration, correlation with CT of the abdomen and pelvis with oral and intravenous contrast is recommended. Electronic Signature Thor Pena D.O. Electronically Signed: Thor Pena DO at 23:35 EDT Tel , Service support ,
== END ==
PROVIDERS: Family Provider Family Medicine; PCP Family Medicine; Referring Provider Internal Medicine Pulmonary Disease; Visit Provider Internal Medicine Pulmonary Disease
DX: R91.1 Solitary pulmonary nodule (principal)
CPT/HCPCS: 78815; A9552

== ENCOUNTER → 2019-05-08 14:55 | Outpatient (CLI) | payer MEDICARE, OTHER, SELFPAY ==
[2018-12-06 14:54] VITALS: BMI 21.2
[2019-05-08 17:50] LABS: CRP < 2.90 mg/L (0.0-3.0)
[2019-05-10 16:08] LABS: Endomysial Antibody IgA Negative (Negative)
[2019-05-11 14:13] LABS: Immunoglobulin A 371 mg/dL (64-422); t-Transglutaminase IgA 3 U/mL (0-3)
== END ==
PROVIDERS: Family Provider Family Medicine; PCP Family Medicine; Referring Provider Internal Medicine Gastroenterology; Visit Provider Internal Medicine Gastroenterology
DX: R19.7 Diarrhea, unspecified (principal)
CPT/HCPCS: 36415; 82784; 83516; 86140; 86255

== ENCOUNTER → 2019-10-30 12:47 | Outpatient (CLI) | payer MEDICARE, SELFPAY ==
[2018-12-06 14:54] VITALS: BMI 21.2
[2019-10-25 13:49] VITALS: BMI 21.2
--- NOTE | 2019-10-30 12:56 | CT_ITS ---
STUDY: CT CHEST WITHOUT CONTRAST REASON FOR EXAM: Female, 79 years old. Lung nodule follow up, chronic cough, home O2, COPD. RADIATION DOSAGE (If Supplied By Facility): CTDIvol = ( 5.96 ) mGy, DLP = ( 226.78 ) mGycm TECHNIQUE: Transaxial imaging was performed without the administration of intravenous contrast material. Individualized dose optimization techniques were used for this CT. COMPARISON: PET scan 04/10/2019. FINDINGS: Lungs show marked hyperexpansion and evidence of severe centrilobular emphysema. Extensive interstitial and septal thickening. There is infected very little pulmonary parenchyma remaining. Stable triangular 6.5 mm indeterminate nodule in the posterior right apex. No other suspicious nodules. Scattered areas of more focal fibrosis. No infiltrates. No effusions. Normal heart and pericardium. There are calcifications of the coronary arteries. Normal mediastinum. Normal hilar regions. Normal unenhanced pulmonary arteries. Normal aorta arch and descending thoracic aorta. There are multi-level degenerative changes of the thoracic spine. Widespread demineralization. Numerous partial compression fractures of indeterminate age. There is no demonstrated acute abnormality of the visualized upper abdomen. CT/Chest without Contrast IMPRESSION: There is severe diffuse centrilobular emphysema. There is very little remaining pulmonary parenchyma. No definite acute abnormalities. Indeterminate 6.5 mm nodule in the right apex. Electronically Signed: Glen Carrizales MD at 22:50 EST , Service support ,
== END ==
PROVIDERS: PCP Family Medicine; Referring Provider Internal Medicine Pulmonary Disease; Visit Provider Internal Medicine Pulmonary Disease
DX: R91.1 Solitary pulmonary nodule (principal); J44.9 Chronic obstructive pulmonary disease, unspecified
CPT/HCPCS: 71250

== ENCOUNTER 2020-03-01 18:59 | Inpatient (IN) | payer MEDICARE, OTHER, SELFPAY ==
[2019-10-25 13:49] VITALS: BMI 21.2
[2020-03-01 19:01] VITALS: BP 136/64; PULSE 80; RESP 19; TEMP 36.8; O2SAT 100; BMI 21.9
--- NOTE | 2020-03-01 19:17 | EKG12_ITS ---
Test Reason : SOB Blood Pressure : / mmHG Vent. Rate : 076 BPM Atrial Rate : 111 BPM P-R Int : 000 ms QRS Dur : 086 ms QT Int : 366 ms P-R-T Axes : 000 090 -09 degrees QTc Int : 411 ms Atrial fibrillation Low voltage QRS (Limb Leads) Nonspecific ST abnormality Abnormal ECG Confirmed by LISA MADRID, VICKY ([id number]), make up editor JOO CORADO ([id number]) on 03/06/2020 1:00:04 PM Referred By: Kamlesh Choi Confirmed By:VICKY GONZALEZ MD
--- NOTE | 2020-03-01 19:17 | ED.VIS.GEN ---
History of Present Illness Chief Complaint: Shortness of Breath Informant: Patient, Family Narrative: Patient presents the emergency department for the evaluation of worsening dyspnea and coughing up blood. Symptoms of been present for 2 weeks. She has a history of COPD and paroxysmal A. fib. 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 She has had her dose this morning. She denies any chest pain. She states that they have been observing 2 spots on her lungs. One went away and the other one has not grown. She denies any fevers. She wears 4 L of home oxygen and has not had to increase the amount that she wears. Past Medical History - Allergies and Home Meds Allergies/Adverse Reactions: Allergies amoxicillin trihydrate [From Augmentin] Allergy (Verified 03/01/20 19:00) Rash gluten Allergy (Verified 03/01/20 19:00) Other potassium clavulanate [From Augmentin] Allergy (Verified 03/01/20 19:00) Rash risperidone [From Risperdal] Adverse Reaction (Severe, Verified 03/01/20 19:00) Hallucinations esomeprazole magnesium [From Nexium] Adverse Reaction (Verified 03/01/20 19:00) Itching furosemide [From Lasix] Adverse Reaction (Verified 03/01/20 19:00) Hives Sulfa (Sulfonamide Antibiotics) Adverse Reaction (Verified 03/01/20 19:00) CONFUSION sulfamethoxazole [From Bactrim] Adverse Reaction (Verified 03/01/20 19:00) CONFUSION trimethoprim [From Bactrim] Adverse Reaction (Verified 03/01/20 19:00) CONFUSION Primary Care Physician: Alexey Herman MD [Primary Care Provider] - Surgical History: noncontributory Smoking Status: Former smoker - Family History Maternal Family History: Family History (Last Reviewed 10/25/19 @ 14:[address] Aj Gray MD) Brother Cancer Sister Cancer Sister COPD (chronic obstructive pulmonary disease) Family History: Reports: No pertinent history Paternal Family History: Family History (Last Reviewed 10/25/19 @ 14:[address] jA Gray MD) Brother Cancer Sister Cancer Sister COPD (chronic obstructive pulmonary disease) Family History: Reports: No pertinent history Review of Systems General: Denies: Chills, Fever, Sweats Eyes: Denies: Visual changes - bilaterally, Diplopia ENT: Denies: Rhinorrhea, Sore throat Cardiovascular: Denies: Chest pain, Palpitations Respiratory: Reports: Dyspnea, - - Hemoptysis. Denies: Cough, Dyspnea on exertion Gastrointestinal: Denies: Abdominal pain, Nausea, Vomiting, Diarrhea, Melena, Hematochezia Genitourinary: Denies: Dysuria, Hematuria, Frequency Musculoskeletal: Denies: Back pain, Extremity Pain Skin: Denies: Rash, Wounds Neurological: Denies: Headache, Weakness, Numbness Physical Exam Vital Signs/Narrative: Vital Signs Temp Pulse Resp BP Pulse Ox 03/01/20 19:01 98.2 F 80 19 H 136/64 H 100 Inital Vital Signs reviewed: Yes General: Well nourished, Well developed, No Acute Distress Head: Normocephalic, Atraumatic Eyes: Perrl, EOMI ENT: Moist mucous membranes, No rhinorrhea Neck: Supple, Nontender Cardiovascular: Regular rate, Regular rhythm, No murmurs Respiratory: No distress, CTA bilaterally, Chest nontender, Diminished, Decreased Air Movement Abdomen: Soft, Nontender, Nondistended, Normal bowel sounds Back: Nontender, Normal Inspection Extremities: Nontender, No edema Skin: Normal color, No rash Neurological: Alert, Oriented x3, Cranial nerves II-XII grossly intact, Normal Strength, Normal Sensation Psychological: Normal affect, Normal Mood Diagnostic/Tx/Re-eval Clinical Impression(s) from Imaging Studies Chest CTA 03/01/20 21:33 IMPRESSION: No pulmonary embolism, aortic aneurysm, or aortic dissection. Severe pulmonary emphysema. Dense consolidation within the left lower lobe likely representing pneumonia. Cardiomegaly with likely poor cardiac output. Fibrosis posteriorly within the right upper lobe. Some insufficiency fractures within the thoracic spine but I do not believe are acute Individualized dose optimization techniques were used for this CT. at 2236 Reported and signed by: Yoav Bruno MD Electronically Signed: Yoav Bruno MD at 22:35 EDT Tel , Service support , Laboratory Last Values WBC 6.2 K/mm3 (4.4-11.0) 03/01/20: RBC 3.91 M/mm3 (4.2-5.4) L 03/01/20: Hgb 12.2 g/dL (12.0-15.0) 03/01/20: Hct 40.1 % (37-47) 03/01/20: MCV 102.6 fL (81-99) H 03/01/20: MCH 31.2 pg (27.0-32.0) 03/01/20: MCHC 30.4 g/dL (32-36) L 03/01/20 RDW Std Deviation 46.4 fl (35.1-43.9) H 03/01/20 RDW Coeff of Jeff 12.4 % (11.6-14.6) 03/01/20 Plt Count 201 K/mm3 (150-450) 03/01/20: MPV 10.6 fl (6.2-12.0) 03/01/20: Immature Gran % (Auto) 0.500 % (0.0-0.9) 03/01/20: Neut % (Auto) 73.8 % (47-70) H 03/01/20: Lymph % (Auto) 12.6 % (19-41) L 03/01/20: [place] % (Auto) 8.4 % (0-10) 03/01/20: Eos % (Auto) 4.4 % (0-5) 03/01/20: Baso % (Auto) 0.3 % (0-1) 03/01/20 Absolute Neuts (auto) 4.6 X10^3/uL (2.0-7.7) 03/01/20: Absolute Lymphs (auto) 0.78 X10^3/uL (0.83-4.51) L 03/01/20 Nucleated RBC % 0 % (0-5) 03/01/20: PT 15.1 SECONDS (11.7-14.9) H 03/01/20: INR 1.2 03/01/20 19: APTT 37.3 Seconds (24.1-36.2) H 03/01/20 19:28 Sodium 142 mmol/L (136-145) 03/01/20: Potassium 3.6 mmol/L (3.5-5.1) 03/01/20: Chloride 100 mmol/L (98-107) 03/01/20: Carbon Dioxide 39.0 mmol/L (21.0-32.0) H 03/01/20: Anion Gap 3 (5-15) L 03/01/20 19: BUN 10 mg/dL (7-18) 03/01/20: Creatinine 0.82 mg/dL (0.55-1.02) 03/01/20: Estim Creat Clear Calc 59.09 ml/min 03/01/20: Est GFR (MDRD) Af Amer 87 mL/min (>60) 03/01/20: Est GFR (MDRD) Non-Af 72 mL/min (>60) 03/01/20: BUN/Creatinine Ratio 12.3 RATIO (10-20) 03/01/20 19: Glucose 111 mg/dL (74-106) H 03/01/20: Calcium 10.6 mg/dL (8.5-10.1) H 03/01/20: Total Bilirubin 0.90 mg/dL (0.20-1.00) 03/01/20: AST 18 U/L (15-37) 03/01/20: ALT 17 U/L (13-56) 03/01/20: Alkaline Phosphatase 113 U/L (45-117) 03/01/20: Troponin I < 0.015 ng/mL (<0.045) 03/01/20: Total Protein 7.1 g/dL (6.4-8.2) 03/01/20: Albumin 3.6 g/dL (3.2-5.0) 03/01/20: Globulin 3.5 g/dL (2.2-4.2) 03/01/20: Albumin/Globulin Ratio 1.0 RATIO (0.9-2.4) 03/01/20 19:28 - EKG Initial EKG Interpretation: Atrial Fibrillation - EKG demonstrates atrial fibrillation at a rate of 76. There are no concerning features of ACS. - Medical Decision Making Patient's labs appear normal. Her CT shows a very large consolidation in the left lower lobe. COVID swab was sent. As the patient has had continued symptoms for 2 weeks continues to have hemoptysis he is reasonable to bring her into the hospital. We gave her Rocephin azithromycin. Of note imaging and thus administration of antibiotics were delayed because the creatinine value needed to obtain the CT scan was delayed. ED Disposition - Plan for ED Patient: Disposition: Acute Care Hospital [facility] Diagnosis: COPD (chronic obstructive pulmonary disease), Paroxysmal atrial fibrillation, Hemoptysis, Pneumonia Referrals: Alexey Herman MD [Primary Care Provider] -
[2020-03-01 19:29] VITALS: O2SAT 100
[2020-03-01 19:34] LABS: Absolute Lymphocyte Count 0.78 X10^3/uL (0.83-4.51); Absolute Neutrophil Count 4.6 X10^3/uL (2.0-7.7); Basophil# 0.02 X10^3/uL; Basophil% 0.3 % (0-1); Eosinophil# 0.27 X10^3/uL; Eosinophils% 4.4 % (0-5); Hematocrit 40.1 % (37-47); Hemoglobin 12.2 g/dL (12.0-15.0); Lymphocyte # 0.78 X10^3/ul (4.0); Lymphocyte % 12.6 % (19-41); Mean Corp Hgb Conc 30.4 g/dL (32-36); Mean Corpuscular Hgb 31.2 pg (27.0-32.0); Mean Corpuscular Volume 102.6 fL (81-99); Mean Platelet Vol. 10.6 fl (6.2-12.0); Monocyte# 0.52 X10^3/uL; Monocyte% 8.4 % (0-10); NRBC Flagged by Analyzer 0 % (0-5); Neutrophil # 4.57 X10^3/uL (2.7-7.7); Neutrophil % 73.8 % (47-70); Platelet Count 201 K/mm3 (150-450); RBC Distribution Width CV 12.4 % (11.6-14.6); RBC Distribution Width SD 46.4 fl (35.1-43.9); Red Blood Count 3.91 M/mm3 (4.2-5.4); White Blood Count 6.2 K/mm3 (4.4-11.0)
[2020-03-01 19:40] VITALS: BP 137/64; PULSE 82; RESP 19; O2SAT 100
[2020-03-01 19:43] LABS: International Normalized Ratio 1.2; Prothrombin Time (Protime)PT. 15.1 SECONDS (11.7-14.9)
[2020-03-01 19:44] LABS: Partial Thromboplast Time 37.3 Seconds (24.1-36.2)
[2020-03-01 21:00] VITALS: BP 121/67; PULSE 73; RESP 18; O2SAT 100
[2020-03-01 21:29] LABS: AST(SGOT) 18 U/L (15-37); Alanine Aminotransfer ALT/SGPT 17 U/L (13-56); Albumin, Serum 3.6 g/dL (3.2-5.0); Alkaline Phosphatase 113 U/L (45-117); Anion Gap 3 (5-15); BUN 10 mg/dL (7-18); BUN/Creat Ratio 12.3 RATIO (10-20); Calcium,Total 10.6 mg/dL (8.5-10.1); Chloride 100 mmol/L (98-107); Creatinine, Serum 0.82 mg/dL (0.55-1.02); EST Glomerular Filtration Rate 72 mL/min (>60); Est Glom Filt Rate - Afr Amer 87 mL/min (>60); Estimated Creatinine Clearance 59.09 ml/min; Globulin 3.5 g/dL (2.2-4.2); Glucose 111 mg/dL (74-106); Potassium 3.6 mmol/L (3.5-5.1); Protein, Total 7.1 g/dL (6.4-8.2); Sodium Level 142 mmol/L (136-145)
--- NOTE | 2020-03-01 21:33 | CT_ITS ---
HISTORY: SOB,HEMOPTYSIS X 2 WEEKSHX:ASTHMA,A-FIB,COPD,CAD,EMPHYSEMA,HYPOTHYROIDPT WEARS OXYGEN AT HOME TECHNIQUE: Helically acquired images were obtained of the chest following the intravenous administration of 75 ML of Isovue-370 Iodinated contrast. as per pulmonary angiogram protocol with 2D , but no 3-D MIP reconstructions. A radiation dose optimization technique was used for this scan. COMPARISON: Most recent comparison CT scan is from October 30, 2019 FINDINGS: # of images incl. paperwork: 1207 Severe pulmonary emphysema persists. Dense consolidation within the left lower lobe is new.. There likely is a small left pleural effusion Within the thoracic spinethere is a kyphosis. Superior endplate insufficiency fractures with wedging is present at T12, T11, and to a lesser degree T10 and T8. Perhaps even T6 demonstrate some wedging. This disease was present on the October 30, 2019 study, and is not acute. Vertebral body height narrowed at many levels with wedging from insufficiency fractures that are chronic Facets are well aligned. No rib lesions are perceived. Heart is enlarged. Thoracic aorta elongated with atherosclerotic calcific plaque. No aneurysms, stenoses, dissections, nor occlusions. No axillary or mediastinal adenopathy. The central pulmonary artery is not pathologically enlarged. Hypodense lesion is present within the dome of the liver adjacent to the diaphragm. It measures about 2.4 cm. It has a central density of 4 Hounsfield units, and likely therefore, represents a benign cyst. There is some reflux of the contrast bolus into the IVC and the hepatic veins suggests of poor cardiac output. Some biliary ductal dilatation is suggested. The stomach is decompressed CT/CTA Chest W/WO Contrast IMPRESSION: No pulmonary embolism, aortic aneurysm, or aortic dissection. Severe pulmonary emphysema. Dense consolidation within the left lower lobe likely representing pneumonia. Cardiomegaly with likely poor cardiac output. Fibrosis posteriorly within the right upper lobe. Some insufficiency fractures within the thoracic spine but I do not believe are acute Individualized dose optimization techniques were used for this CT. at 2236 Reported and signed by: Yoav Bruno MD Electronically Signed: Yoav Bruno MD at 22:35 EDT Tel , Service support ,
[2020-03-01 22:00] VITALS: BP 133/65; PULSE 69; RESP 17; O2SAT 100
--- NOTE | 2020-03-01 22:44 | HP.PCM_ITS ---
Problem List (1) Hemoptysis Status: Acute (2) Pneumonia Status: Acute (3) Ankle edema Status: Chronic (4) Essential (primary) hypertension Status: Chronic (5) Paroxysmal atrial fibrillation Status: Chronic (6) COPD (chronic obstructive pulmonary disease) Status: Chronic Qualifiers: COPD type: unspecified COPD Qualified Code(s): J44.9 - Chronic obstructive pulmonary disease, unspecified History of Present Illness Date of Admission: 03/01/20 Chief Complaint: Hemoptysis The patient is a 79 year old F with a significant history of COPD on 4 L nasal cannula and on CPAP at night; paroxysmal A. fib; and hypothyroidism who presents emergency department with 2-week history of progressively worsening and hemoptysis. Her hemoptysis episode is productive for about 1 table of tablespoon blood. Associated with his symptoms is shortness of breath. Patient see Dr. King, hyperbaric tech. She called the Dr. King's office and she was instructed to come to the hospital for imaging. Reportedly she was instructed by Dr. King's office to stopped taking her Eliquis. On presentation she had already taken her morning dose of Eliquis. Patient denies knowingly coming to contact with anyone of COVID-19. She denies fever or chills. Past Medical History Past Medical History (Chronic Problems): Chronic Problems (Last Reviewed 03/02/20 @ 04:[address] Kamlesh Choi MD) Ankle edema (Chronic) Essential (primary) hypertension (Chronic) Paroxysmal atrial fibrillation (Chronic) COPD (chronic obstructive pulmonary disease) (Chronic) Medical History: Medical History (Last Reviewed 03/02/20 @ 04:[address] Kamlesh Choi MD) Essential (primary) hypertension (Chronic) I10 Paroxysmal atrial fibrillation (Chronic) I48.0 COPD (chronic obstructive pulmonary disease) (Chronic) J44.9 Anxiety F41.9 Anxiety and depression F41.9, F32.9 Epistaxis R04.0 GERD (gastroesophageal reflux disease) K21.9 Hypokalemia E87.6 Hypomagnesemia E83.42 Hypothyroidism E03.9 Insomnia G47.00 Iron deficiency E61.1 Normochromic anemia D64.9 Osteoporosis M81.0 Pulmonary fibrosis J84.10 RLS (restless legs syndrome) G25.81 Vertebral compression fracture M48.50XA Chronic respiratory failure with hypoxia (Resolved) J96.11 Metabolic encephalopathy (Resolved) G93.41 Allergies amoxicillin trihydrate [From Augmentin] Allergy (Verified 03/01/20 19:00) Rash gluten Allergy (Verified 03/01/20 19:00) Other potassium clavulanate [From Augmentin] Allergy (Verified 03/01/20 19:00) Rash risperidone [From Risperdal] Adverse Reaction (Severe, Verified 03/01/20 19:00) Hallucinations esomeprazole magnesium [From Nexium] Adverse Reaction (Verified 03/01/20 19:00) Itching furosemide [From Lasix] Adverse Reaction (Verified 03/01/20 19:00) Hives Sulfa (Sulfonamide Antibiotics) Adverse Reaction (Verified 03/01/20 19:00) CONFUSION sulfamethoxazole [From Bactrim] Adverse Reaction (Verified 03/01/20 19:00) CONFUSION trimethoprim [From Bactrim] Adverse Reaction (Verified 03/01/20 19:00) CONFUSION Home Medications: Ambulatory Orders Medication Instructions Recorded Levothyroxine [Synthroid] 50 mcg PO DAILY 07/12/17 busPIRone [Buspar] 5 mg PO BID 07/23/17 Sertraline HCl [Zoloft] 50 mg PO DAILY 09/13/17 Famotidine [Pepcid] 20 mg PO BID #60 tab 09/24/17 roflumilast 500 mcg tablet 500 mcg PO QDAY 12/03/17 Calcium Carb/Vitamin D [Os-Bud 1 tab PO LUNCH 01/26/18 500MG + D] Iron Polysaccharide Complex 150 mg PO DAILYCM 01/26/18 [Ferrex 150] traZODone [Desyrel] 50 mg PO QHS 01/26/18 Magnesium Oxide [Mag-Ox 400] 400 mg PO DAILY@0800 02/04/18 Montelukast [Singulair] 10 mg PO DAILY@1700 #30 tab 02/17/18 azithromycin 250 mg tablet 250 mg PO DAILY 12/06/18 diltiazem HCl 240 mg 240 mg PO QDAY #30 cap 03/20/19 capsule,extended release 24 hr apixaban 2.5 mg tablet 2.5 mg PO BID #180 tab 09/22/19 umeclidinium 62.5 mcg/actuation 1 inh INHALATION DAILY 10/25/19 blister powder for inhalation Albuterol Aerosols [Ventolin 2.5 mg INHALATION DAILY 03/01/20 Aerosols] Fluticasone/Vilanterol [Breo 1 ea IH DAILY 03/01/20 Ellipta 200-25 Mcg INH] Surgical History: Surgical History (Last Reviewed 03/02/20 @ 04:[address] 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 Kamlesh Choi MD) Brother Cancer Sister Cancer Sister COPD (chronic obstructive pulmonary disease) History Items: No pertinent history Paternal Family History: Family History (Last Reviewed 03/02/20 @ 04:[address] Kamlesh Choi MD) Brother Cancer Sister Cancer Sister COPD (chronic obstructive pulmonary disease) History Items: No pertinent history Review of Systems Constitutional: Reports: Anorexia, Fatigue. Denies: Chills, Fever, Weight Change HEENT: Denies: Head Aches, Sinus Congestion, Sinus Drainage Cardiovascular: Denies: Chest Pain, Palpitations Respiratory: Reports: Cough, Hemoptysis, Shortness of breath upon exertion, Sputum production Gastrointestinal: Denies: Abdominal Pain, Nausea, Vomiting Genitourinary: Denies: Dysuria Musculoskeletal: Denies: Joint Pain, Joint Tenderness Skin: Denies: Rash, Wounds Neurological: Denies: Numbness, Tingling, Focal weakness Psychiatric: Denies: Anxiety, Depression, Homicidal Ideations, Suicidal Ideations Hematologic/ Lymphatic: Denies: Easy Bruising, Easy Bleeding VTE Information - Inpt Only VTE Present on Admission: No VTE Mechan Device Prophylaxis: SCD's VTE Pharm Prophylaxis ordered?: No Patient Problems: Active and Suspected Problems (Last Reviewed 03/02/20 @ 04:[address] Kamlesh Choi MD) Hemoptysis (Acute) Pneumonia (Acute) - Physical Exam Vitals/I&O's: Vital Signs Temp Pulse Resp BP Pulse Ox 98.2 F 69 17 133/65 H 100 03/01/20 19:01 03/01/20 22:00 03/01/20 22:00 03/01/20 22:00 03/01/20 22:00 Oxygen Flow Rate (L/min) 4 Oxygen Delivery Method Nasal Cannula Weight: 67.585 kg Body Mass Index (BMI) 21.9 Intake and Output for Last 24 Hours 02/28/20 02/29/20 03/01/20 23:59 23:59 23:59 Intake Total 500 / 500 Balance 500 / 500 General: Alert, Oriented x3, Cooperative HEENT: Atraumatic, PERRLA, EOMI, Normocephalic Neck: Supple, Trachea Midline Lungs: No rhonchi, No wheeze, No rales, Diminished Cardiovascular: Normal S1, Normal S2, No murmurs, Irregular Rate Abdomen: Bowel Sounds Present, Soft, Non Tender Extremities: Capillary Refill Less than 3 Seconds, Edema Skin: No rashes, No breakdown Musculoskeletal: No Tenderness to Palpation of Joints or Extremities Neurological: Cranial nerves II-XII grossly intact Psych/Mental Status: Normal Affect, Appropriate Laboratory Results 03/01/20 19:28: WBC 6.2, RBC 3.91 L, Hgb 12.2, Hct 40.1, MCV 102.6 H, MCH 31.2, MCHC 30.4 L, RDW Std Deviation 46.4 H, RDW Coeff of Jeff 12.4, Plt Count 201, MPV 10.6, Immature Gran % (Auto) 0.500, Neut % (Auto) 73.8 H, Lymph % (Auto) 12.6 L, [place] % (Auto) 8.4, Eos % (Auto) 4.4, Baso % (Auto) 0.3, Absolute Neuts (auto) 4.6, Absolute Lymphs (auto) 0.78 L, Nucleated RBC % 0 03/01/20 19:28: PT 15.1 H, INR 1.2, APTT 37.3 H 03/01/20 19:28: Sodium 142, Potassium 3.6, Chloride 100, Carbon Dioxide 39.0 H, Anion Gap 3 L, BUN 10, Creatinine 0.82, Estim Creat Clear Calc 59.09, Est GFR (MDRD) Af Amer 87, Est GFR (MDRD) Non-Af 72, BUN/Creatinine Ratio 12.3, Glucose 111 H, Calcium 10.6 H, Total Bilirubin 0.90, AST 18, ALT 17, Alkaline Phosphatase 113, Troponin I < 0.015, Total Protein 7.1, Albumin 3.6, Globulin 3.5, Albumin/Globulin Ratio 1.0 03/01/20 22:15: Lactic Acid Pending Current Medications Azithromycin 500 mg/ Dextrose 255 mls @ 250 mls/hr IV X1 ONE Stop: 03/01/20 23:00 Sodium Chloride () 250 mls @ 15 mls/hr IV .[id number] PRN PRN Reason: Additional IVPB Infusion Assessment/Plan All Active Problems (Last Reviewed 03/02/20 @ 04:[address] Kamlesh Choi MD) Hemoptysis (Acute) Pneumonia (Acute) Acute respiratory failure with hypoxia and hypercapnia (Resolved) Atrial fibrillation with rapid ventricular response (Resolved) CAP (community acquired pneumonia) (Resolved) COPD with acute exacerbation (Resolved) Chronic respiratory failure with hypoxia (Resolved) Healthcare-associated pneumonia (Resolved) History of malnutrition (Resolved) Human metapneumovirus (hMPV) pneumonia (Resolved) Leucocytosis (Resolved) Metabolic alkalosis (Resolved) Metabolic encephalopathy (Resolved) Streptococcal pneumonia (Resolved) Thrush (Resolved) The patient is a 79 year old F with a significant history of COPD on 4 L nasal cannula and on CPAP at night; paroxysmal A. fib; and hypothyroidism who presents emergency department with 2-week history of progressively worsening and hemoptysis and improved and with radiographic evidence of lower lobe consolidation. Community-acquired pneumonia Gram-positive or gram-negative Lactic acid: 1.1 RR: Highest of 19 No tachycardia Blood culture ?2 is pending Actual CTA of chest was independently reviewed. Image showed dense consolidation within the left lower lobe. Respiratory Gram stain and culture ordered Home azithromycin 250 mg daily for his COPD. Antibiotics: Received azithromycin IV and ceftriaxone IV at emergency department Azithromycin IV and ceftriaxone IV ordered inpatient. On home ICS?lab; and lama. Ordered a scheduled DuoNeb; scheduled budesonide inhaler; and albuterol inhaler as needed. Mucinex tablets ordered Legionella antigen screen and Strep antigen ordered Differential diagnosis includes malignancy. Consider long-acting repeat of imaging. Consider discussing case with Dr. King who is very familiar with patient. Covered screen done at emergency department. Results pending. If negative will admit to medical surgical unit. Pulmonary nodule. Patient follows longitudinally outpatient. Paroxysmal A. fib Patient in controlled A. fib. Extended release Cardizem continued. Eliquis held secondary to hemoptysis. GERD Pepcid continued Hypothyroidism Synthroid continued DVT prophylaxis SCD ordered. No chemical prophylaxis at this time because of hemoptysis. Inpatient E&M: 57501 Init Hosp L3
[2020-03-01 22:55] LABS: Lactic Acid 1.1 mmol/L (0.4-1.9)
[2020-03-01 23:35] VITALS: BP 158/64; PULSE 79; RESP 18; O2SAT 98
[2020-03-02] VITALS (10 sets, daily range): BP systolic 124–156; BP diastolic 55–75; PULSE 65–82; RESP 12–20; TEMP 36.7–37.1; O2SAT 94–100; BMI 22.0
[2020-03-02] MEDS: guaiFENesin 1,200 MG Tablet 1200 MG PO ×2 (03:29→08:45)
[2020-03-02] MEDS: Levothyroxine 50 MCG Tablet PO (05:17)
[2020-03-02 06:16] LABS: Absolute Lymphocyte Count 0.72 X10^3/uL (0.83-4.51); Absolute Neutrophil Count 3.6 X10^3/uL (2.0-7.7); Basophil# 0.02 X10^3/uL; Basophil% 0.4 % (0-1); Eosinophil# 0.23 X10^3/uL; Eosinophils% 4.6 % (0-5); Hematocrit 34.1 % (37-47); Hemoglobin 10.2 g/dL (12.0-15.0); Lymphocyte # 0.72 X10^3/ul (4.0); Lymphocyte % 14.4 % (19-41); Mean Corp Hgb Conc 29.9 g/dL (32-36); Mean Corpuscular Hgb 30.7 pg (27.0-32.0); Mean Corpuscular Volume 102.7 fL (81-99); Mean Platelet Vol. 10.3 fl (6.2-12.0); Monocyte# 0.42 X10^3/uL; Monocyte% 8.4 % (0-10); NRBC Flagged by Analyzer 0 % (0-5); Neutrophil # 3.58 X10^3/uL (2.7-7.7); Neutrophil % 71.8 % (47-70); Platelet Count 161 K/mm3 (150-450); RBC Distribution Width CV 12.4 % (11.6-14.6); RBC Distribution Width SD 46.5 fl (35.1-43.9); Red Blood Count 3.32 M/mm3 (4.2-5.4)
[2020-03-02 06:38] LABS: Anion Gap 4 (5-15); BUN 10 mg/dL (7-18); BUN/Creat Ratio 17.2 RATIO (10-20); Calcium,Total 9.6 mg/dL (8.5-10.1); Chloride 102 mmol/L (98-107); Creatinine, Serum 0.58 mg/dL (0.55-1.02); EST Glomerular Filtration Rate 106 mL/min (>60); Est Glom Filt Rate - Afr Amer 129 mL/min (>60); Estimated Creatinine Clearance 48.45 ml/min; Glucose 89 mg/dL (74-106); Potassium 3.6 mmol/L (3.5-5.1); Sodium Level 143 mmol/L (136-145)
[2020-03-02] MEDS: Budesonide Respules 0.5 MG/2 ML AMPUL.NEB. INHALATION ×2 (06:53→18:45)
[2020-03-02] MEDS: Ipratropium/Albuterol Sulfate 3 ML AMPUL.NEB INHALATION ×3 (06:53→18:45)
--- NOTE | 2020-03-02 07:12 | PCM.HP.STD ---
History of Present Illness The patient is a 79 year old F [] Past Medical History Past Medical History (Chronic Problems): Chronic Problems (Last Reviewed 03/02/20 @ 04:[address] Kamlesh Choi MD) Ankle edema (Chronic) Essential (primary) hypertension (Chronic) Paroxysmal atrial fibrillation (Chronic) COPD (chronic obstructive pulmonary disease) (Chronic) Medical History: Medical History (Last Reviewed 03/02/20 @ 04:[address] Kamlesh Choi MD) Essential (primary) hypertension (Chronic) I10 Paroxysmal atrial fibrillation (Chronic) I48.0 COPD (chronic obstructive pulmonary disease) (Chronic) J44.9 Anxiety F41.9 Anxiety and depression F41.9, F32.9 Epistaxis R04.0 GERD (gastroesophageal reflux disease) K21.9 Hypokalemia E87.6 Hypomagnesemia E83.42 Hypothyroidism E03.9 Insomnia G47.00 Iron deficiency E61.1 Normochromic anemia D64.9 Osteoporosis M81.0 Pulmonary fibrosis J84.10 RLS (restless legs syndrome) G25.81 Vertebral compression fracture M48.50XA Chronic respiratory failure with hypoxia (Resolved) J96.11 Metabolic encephalopathy (Resolved) G93.41 Allergies amoxicillin trihydrate [From Augmentin] Allergy (Verified 03/01/20 19:00) Rash gluten Allergy (Verified 03/01/20 19:00) Other potassium clavulanate [From Augmentin] Allergy (Verified 03/01/20 19:00) Rash risperidone [From Risperdal] Adverse Reaction (Severe, Verified 03/01/20 19:00) Hallucinations esomeprazole magnesium [From Nexium] Adverse Reaction (Verified 03/01/20 19:00) Itching furosemide [From Lasix] Adverse Reaction (Verified 03/01/20 19:00) Hives Sulfa (Sulfonamide Antibiotics) Adverse Reaction (Verified 03/01/20 19:00) CONFUSION sulfamethoxazole [From Bactrim] Adverse Reaction (Verified 03/01/20 19:00) CONFUSION trimethoprim [From Bactrim] Adverse Reaction (Verified 03/01/20 19:00) CONFUSION Home Medications: Ambulatory Orders Medication Instructions Recorded Levothyroxine [Synthroid] 50 mcg PO DAILY 07/12/17 busPIRone [Buspar] 5 mg PO BID 11/03/17 Sertraline HCl [Zoloft] 50 mg PO DAILY 09/13/17 Famotidine [Pepcid] 20 mg PO BID #60 tab 09/24/17 roflumilast 500 mcg tablet 500 mcg PO QDAY 12/03/17 Calcium Carb/Vitamin D [Os-Bud 1 tab PO LUNCH 01/26/18 500MG + D] Iron Polysaccharide Complex 150 mg PO DAILYCM 01/26/18 [Ferrex 150] traZODone [Desyrel] 50 mg PO QHS 01/26/18 Magnesium Oxide [Mag-Ox 400] 400 mg PO DAILY@0800 02/04/18 Montelukast [Singulair] 10 mg PO DAILY@1700 #30 tab 02/17/18 azithromycin 250 mg tablet 250 mg PO DAILY 12/06/18 diltiazem HCl 240 mg 240 mg PO QDAY #30 cap 03/20/19 capsule,extended release 24 hr apixaban 2.5 mg tablet 2.5 mg PO BID #180 tab 09/22/19 umeclidinium 62.5 mcg/actuation 1 inh INHALATION DAILY 10/25/19 blister powder for inhalation Albuterol Aerosols [Ventolin 2.5 mg INHALATION DAILY 03/01/20 Aerosols] Fluticasone/Vilanterol [Breo 1 ea IH DAILY 03/01/20 Ellipta 200-25 Mcg INH] Surgical History: Surgical History (Last Reviewed 03/02/20 @ 04:[address] 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 Kamlesh Choi MD) Brother Cancer Sister Cancer Sister COPD (chronic obstructive pulmonary disease) History Items: No pertinent history Paternal Family History: Family History (Last Reviewed 03/02/20 @ 04:[address] Kamlesh Choi MD) Brother Cancer Sister Cancer Sister COPD (chronic obstructive pulmonary disease) History Items: No pertinent history Patient Problems: Active and Suspected Problems (Last Reviewed 03/02/20 @ 04:[address] Kamlesh Choi MD) Hemoptysis (Acute) Pneumonia (Acute) - Physical Exam Vitals/I&O's: Vital Signs Temp Pulse Resp BP Pulse Ox 98.0 F 78 18 130/75 H 98 03/02/20 02:29 03/02/20 06:53 03/02/20 06:53 03/02/20 02:29 03/02/20 06:55 Oxygen Flow Rate (L/min) 4 Oxygen Delivery Method Nasal Cannula Weight: 67.614 kg Body Mass Index (BMI) 22.0 Intake and Output for Last 24 Hours 02/29/20 03/01/20 03/02/20 23:59 23:59 23:59 Intake Total 550 / 550 410.75 / 410.75 Balance 550 / 550 410.75 / 410.75 Microbiology Past 72 Hours 03/02/20 03:20 Sputum, Expectorated/Coughed Gram Stain - Preliminary Laboratory Results 03/01/20 19:28: WBC 6.2, RBC 3.91 L, Hgb 12.2, Hct 40.1, MCV 102.6 H, MCH 31.2, MCHC 30.4 L, RDW Std Deviation 46.4 H, RDW Coeff of Jeff 12.4, Plt Count 201, MPV 10.6, Immature Gran % (Auto) 0.500, Neut % (Auto) 73.8 H, Lymph % (Auto) 12.6 L, Morrison % (Auto) 8.4, Eos % (Auto) 4.4, Baso % (Auto) 0.3, Absolute Neuts (auto) 4.6, Absolute Lymphs (auto) 0.78 L, Nucleated RBC % 0 03/01/20 19:28: PT 15.1 H, INR 1.2, APTT 37.3 H 03/01/20 19:28: Sodium 142, Potassium 3.6, Chloride 100, Carbon Dioxide 39.0 H, Anion Gap 3 L, BUN 10, Creatinine 0.82, Estim Creat Clear Calc 59.09, Est GFR (MDRD) Af Amer 87, Est GFR (MDRD) Non-Af 72, BUN/Creatinine Ratio 12.3, Glucose 111 H, Calcium 10.6 H, Total Bilirubin 0.90, AST 18, ALT 17, Alkaline Phosphatase 113, Troponin I < 0.015, Total Protein 7.1, Albumin 3.6, Globulin 3.5, Albumin/Globulin Ratio 1.0 03/01/20 22:15: Lactic Acid 1.1 03/01/20 22:46: COVID-19 ([facility]ICA) Not Detected 03/02/20 06:00: Sodium 143, Potassium 3.6, Chloride 102, Carbon Dioxide 37.0 H, Anion Gap 4 L, BUN 10, Creatinine 0.58, Estim Creat Clear Calc 48.45, Est GFR (MDRD) Af Amer 129, Est GFR (MDRD) Non-Af 106, BUN/Creatinine Ratio 17.2, Glucose 89, Calcium 9.6 03/02/20 06:00: WBC 5.0, RBC 3.32 L, Hgb 10.2 L, Hct 34.1 L, MCV 102.7 H, MCH 30.7, MCHC 29.9 L, RDW Std Deviation 46.5 H, RDW Coeff of Jeff 12.4, Plt Count 161, MPV 10.3, Immature Gran % (Auto) 0.400, Neut % (Auto) 71.8 H, Lymph % (Auto) 14.4 L, Morrison % (Auto) 8.4, Eos % (Auto) 4.6, Baso % (Auto) 0.4, Absolute Neuts (auto) 3.6, Absolute Lymphs (auto) 0.72 L, Nucleated RBC % 0 Current Medications Acetaminophen (Tylenol) 650 mg PO Q6H PRN PRN PRN Reason: Pain Score 1-10/Temp > 100.7 F Albuterol Sulfate (Ventolin Aerosols) 2.5 mg INHALATION Q2H PRN PRN PRN Reason: Shortness of Breath/Wheezing Albuterol/Ipratropium (Duoneb) 3 ml INHALATION Q6H.RT [facility] Last Admin: 03/02/20 06:53 Dose: 3 ml Documented by: Budesonide (Pulmicort Aerosol) 0.5 mg INHALATION BID.RT [facility] Last Admin: 03/02/20 06:53 Dose: 0.5 mg Documented by: Buspirone HCl (Buspar) 5 mg PO BID@1200,2200 [facility] Calcium/Vitamin D (Os-Bud 500mg + D) 1 tablet PO LUNCH [facility] Dextrose (D50w Syringe) 0 gm IV X1 PRN; Protocol PRN Reason: Hypoglycemia Diltiazem HCl (Cardizem Cd) 240 mg PO DAILY [facility] Famotidine (Pepcid) 20 mg PO BID [facility] Glucagon () 1 mg IM .X1 PRN PRN Reason: Hypoglycemia Guaifenesin (Mucinex) 1,200 mg PO BID [facility] Last Admin: 03/02/20 03:29 Dose: 1,200 mg Documented by: Azithromycin 500 mg/ Dextrose 255 mls @ 250 mls/hr IV Q24@2200 [facility] Ceftriaxone Sodium 2 gm/ (Sodium Chloride) 50 mls @ 100 mls/hr IV Q24@2200 [facility] Levothyroxine Sodium (Synthroid) 50 mcg PO DAILY@0600 [facility] Last Admin: 03/02/20 05:17 Dose: 50 mcg Documented by: Magnesium Oxide (Mag-Ox 400) 400 mg PO DAILY@0800 [facility] Melatonin (Melatonin) 3 mg PO QHS PRN PRN PRN Reason: INSOMNIA Montelukast Sodium (Singulair) 10 mg PO DAILY@1700 [facility] Ondansetron HCl (Zofran) 4 mg IV Q8H PRN PRN PRN Reason: NAUSEA/VOMITING Polysaccharide [facility] ([facility]rex 150) [facility] Senna/Docusate Sodium (Senokot-S, Kylee-Colace) 2 tablet PO BID PRN PRN PRN Reason: Constipation Sertraline HCl (Zoloft) 50 mg PO DAILY [facility] Sodium Chloride () 10 - 40 ml IV UD PRN PRN Reason: Midline Flush Sodium Chloride (0.9% Nacl (Sterile) Posiflush) 10 - 40 ml IV UD PRN PRN Reason: Port access or dressing change Sodium Chloride () 10 - 40 ml IV UD PRN PRN Reason: SALINE FLUSH Trazodone HCl (Desyrel) 50 mg PO QHS [facility] Assessment/Plan All Active Problems (Last Reviewed 03/02/20 @ 04:[address] Kamlesh Choi MD) Hemoptysis (Acute) Pneumonia (Acute) Acute respiratory failure with hypoxia and hypercapnia (Resolved) Atrial fibrillation with rapid ventricular response (Resolved) CAP (community acquired pneumonia) (Resolved) COPD with acute exacerbation (Resolved) Chronic respiratory failure with hypoxia (Resolved) Healthcare-associated pneumonia (Resolved) History of malnutrition (Resolved) Human metapneumovirus (hMPV) pneumonia (Resolved) Leucocytosis (Resolved) Metabolic alkalosis (Resolved) Metabolic encephalopathy (Resolved) Streptococcal pneumonia (Resolved) Thrush (Resolved)
[2020-03-02] MEDS: Iron Polysaccharide Complex 150 MG CAPSULE PO (08:44)
[2020-03-02] MEDS: Magnesium Oxide 400 MG Tablet PO (08:44)
[2020-03-02] MEDS: Famotidine 20 MG Tablet PO ×2 (08:45→22:01)
[2020-03-02] MEDS: dilTIAZem CD 240 MG Capsule PO (08:45)
[2020-03-02] MEDS: Sertraline 50 MG Tablet PO (08:46)
--- NOTE | 2020-03-02 08:47 | PN_ITS ---
Patient Problems: Active and Suspected Problems (Last Reviewed 03/02/20 @ 04:[address] Kamlesh Choi MD) Hemoptysis (Acute) Pneumonia (Acute) Reason for Visit: Follow-up on pneumonia Subjective: Patient was seen and examined. She complains of feeling short of breath with exertion. No fevers or chills. Objective: Physical exam: General: Alert, Oriented x3, Cooperative HEENT: Atraumatic, PERRLA, EOMI, Normocephalic Neck: Supple, Trachea Midline Lungs: No rhonchi, No wheeze, No rales, Diminished Cardiovascular: Normal S1, Normal S2, No murmurs, Irregular Rate Abdomen: Bowel Sounds Present, Soft, Non Tender Extremities: Capillary Refill Less than 3 Seconds, Edema Skin: No rashes, No breakdown Musculoskeletal: No Tenderness to Palpation of Joints or Extremities Neurological: Cranial nerves II-XII grossly intact Psych/Mental Status: Normal Affect, Appropriate Vitals/I&O's: Vital Signs Temp Pulse Resp BP Pulse Ox 98.0 F 78 18 130/75 H 98 03/02/20 02:29 03/02/20 06:53 03/02/20 06:53 03/02/20 02:29 03/02/20 06:55 Oxygen Flow Rate (L/min) 4 Oxygen Delivery Method Nasal Cannula Weight: 67.614 kg Body Mass Index (BMI) 22.0 Intake and Output for Last 24 Hours 02/29/20 03/01/20 03/02/20 23:59 23:59 23:59 Intake Total 550 / 550 410.75 / 410.75 Balance 550 / 550 410.75 / 410.75 Microbiology Past 72 Hours 03/02/20 03:20 Sputum, Expectorated/Coughed Gram Stain - Preliminary Laboratory Results 03/01/20 19:28: WBC 6.2, RBC 3.91 L, Hgb 12.2, Hct 40.1, MCV 102.6 H, MCH 31.2, MCHC 30.4 L, RDW Std Deviation 46.4 H, RDW Coeff of Jeff 12.4, Plt Count 201, MPV 10.6, Immature Gran % (Auto) 0.500, Neut % (Auto) 73.8 H, Lymph % (Auto) 12.6 L, Andrews % (Auto) 8.4, Eos % (Auto) 4.4, Baso % (Auto) 0.3, Absolute Neuts (auto) 4.6, Absolute Lymphs (auto) 0.78 L, Nucleated RBC % 0 03/01/20 19:28: PT 15.1 H, INR 1.2, APTT 37.3 H 03/01/20 19:28: Sodium 142, Potassium 3.6, Chloride 100, Carbon Dioxide 39.0 H, Anion Gap 3 L, BUN 10, Creatinine 0.82, Estim Creat Clear Calc 59.09, Est GFR (MDRD) Af Amer 87, Est GFR (MDRD) Non-Af 72, BUN/Creatinine Ratio 12.3, Glucose 111 H, Calcium 10.6 H, Total Bilirubin 0.90, AST 18, ALT 17, Alkaline Phosphatase 113, Troponin I < 0.015, Total Protein 7.1, Albumin 3.6, Globulin 3.5, Albumin/Globulin Ratio 1.0 03/01/20 22:15: Lactic Acid 1.1 03/01/20 22:46: COVID-19 ([facility]) Not Detected 03/02/20 06:00: Sodium 143, Potassium 3.6, Chloride 102, Carbon Dioxide 37.0 H, Anion Gap 4 L, BUN 10, Creatinine 0.58, Estim Creat Clear Calc 48.45, Est GFR (MDRD) Af Amer 129, Est GFR (MDRD) Non-Af 106, BUN/Creatinine Ratio 17.2, Glucose 89, Calcium 9.6 03/02/20 06:00: WBC 5.0, RBC 3.32 L, Hgb 10.2 L, Hct 34.1 L, MCV 102.7 H, MCH 30.7, MCHC 29.9 L, RDW Std Deviation 46.5 H, RDW Coeff of Jeff 12.4, Plt Count 161, MPV 10.3, Immature Gran % (Auto) 0.400, Neut % (Auto) 71.8 H, Lymph % (Auto) 14.4 L, Andrews % (Auto) 8.4, Eos % (Auto) 4.6, Baso % (Auto) 0.4, Absolute Neuts (auto) 3.6, Absolute Lymphs (auto) 0.72 L, Nucleated RBC % 0 Current Medications Acetaminophen (Tylenol) 650 mg PO Q6H PRN PRN PRN Reason: Pain Score 1-10/Temp > 100.7 F Albuterol Sulfate (Ventolin Aerosols) 2.5 mg INHALATION Q2H PRN PRN PRN Reason: Shortness of Breath/Wheezing Albuterol/Ipratropium (Duoneb) 3 ml INHALATION Q6H.RT [facility] Last Admin: 03/02/20 06:53 Dose: 3 ml Documented by: Budesonide (Pulmicort Aerosol) 0.5 mg INHALATION BID.RT [facility] Last Admin: 03/02/20 06:53 Dose: 0.5 mg Documented by: Buspirone HCl (Buspar) 5 mg PO BID@1200,2200 [facility] Calcium/Vitamin D (Os-Bud 500mg + D) 1 tablet PO LUNCH [facility] Dextrose (D50w Syringe) 0 gm IV X1 PRN; Protocol PRN Reason: Hypoglycemia Diltiazem HCl (Cardizem Cd) 240 mg PO DAILY [facility] Last Admin: 03/02/20 08:45 Dose: 240 mg Documented by: Famotidine (Pepcid) 20 mg PO BID [facility] Last Admin: 03/02/20 08:45 Dose: 20 mg Documented by: Glucagon () 1 mg IM .X1 PRN PRN Reason: Hypoglycemia Guaifenesin (Mucinex) 1,200 mg PO BID [facility] Last Admin: 03/02/20 08:45 Dose: 1,200 mg Documented by: Azithromycin 500 mg/ Dextrose 255 mls @ 250 mls/hr IV Q24@2200 [facility] Ceftriaxone Sodium 2 gm/ (Sodium Chloride) 50 mls @ 100 mls/hr IV Q24@2200 [facility] Levothyroxine Sodium (Synthroid) 50 mcg PO DAILY@0600 [facility] Last Admin: 03/02/20 05:17 Dose: 50 mcg Documented by: Magnesium Oxide (Mag-Ox 400) 400 mg PO DAILY@0800 [facility] Last Admin: 03/02/20 08:44 Dose: 400 mg Documented by: Melatonin (Melatonin) 3 mg PO QHS PRN PRN PRN Reason: INSOMNIA Montelukast Sodium (Singulair) 10 mg PO DAILY@1700 [facility] Ondansetron HCl (Zofran) 4 mg IV Q8H PRN PRN PRN Reason: NAUSEA/VOMITING Polysaccharide Iron Complex (Ferrex 150) 150 mg PO DAILYCM [facility] Last Admin: 06/13/20 08:44 Dose: 150 mg Documented by: Senna/Docusate Sodium (Senokot-S, Kylee-Colace) 2 tablet PO BID PRN PRN PRN Reason: Constipation Sertraline HCl (Zoloft) 50 mg PO DAILY [facility] Last Admin: 03/02/20 08:46 Dose: 50 mg Documented by: Sodium Chloride () 10 - 40 ml IV UD PRN PRN Reason: Midline Flush Sodium Chloride (0.9% Nacl (Sterile) Posiflush) 10 - 40 ml IV UD PRN PRN Reason: Port access or dressing change Sodium Chloride () 10 - 40 ml IV UD PRN PRN Reason: SALINE FLUSH Trazodone HCl (Desyrel) 50 mg PO QHS [facility] Vital Signs/Narrative: Vital Signs Pulse Resp Pulse Ox 03/02/20 06:55 98 03/02/20 06:53 78 18 Medical Necessity - Tobacco Use Smoking Status: Former smoker Assessment/Plan All Active Problems (Last Reviewed 03/02/20 @ 04:[address] Kamlesh Choi MD) Hemoptysis (Acute) Pneumonia (Acute) Acute respiratory failure with hypoxia and hypercapnia (Resolved) Atrial fibrillation with rapid ventricular response (Resolved) CAP (community acquired pneumonia) (Resolved) COPD with acute exacerbation (Resolved) Chronic respiratory failure with hypoxia (Resolved) Healthcare-associated pneumonia (Resolved) History of malnutrition (Resolved) Human metapneumovirus (hMPV) pneumonia (Resolved) Leucocytosis (Resolved) Metabolic alkalosis (Resolved) Metabolic encephalopathy (Resolved) Streptococcal pneumonia (Resolved) Thrush (Resolved) 1. Community-acquired pneumonia, history of chronic hypoxic respiratory failure, on 4 L of oxygen at home Currently on 4 L of oxygen, blood and sputum cultures are pending, urine streptococcal and Legionella antigen negative. Continue on IV ceftriaxone and azithromycin, continue on maintenance COPD medications 2. Anemia, likely secondary to hemodilution, drop in hemoglobin from 12.2-10.2 No signs of acute bleeding, will trend labs in a.m. 3. Paroxysmal atrial fibrillation, rate controlled, continue on Cardizem, apixaban 4. GERD, on famotidine 5. Hypothyroidism, on levothyroxine 6. DVT PPx- Apixaban Inpatient E&M: 11257 [facility] Hosp L2
--- NOTE | 2020-03-02 10:10 | CASEMGMT ---
RN VALENTIN Face to Face with patient for initial transition planning/care coordination assessment. RN CM introduced self and role at [facility]. Patient sitting in chair, alert and oriented. Patient willing to participate in assessment and is able to answer all questions appropriately. Care providers, pharmacy, and demographics verified. Patient wishes to discharge home, denies need for home health at this time. Patient states she has no further needs or concerns at this time. CM to follow for discharge planning needs that may arise. 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 Patient states she is independent for toileting, assist with dressing and bathing. Transportation: DME/HHC: Patient has raised toilet, cane, walker, bipap, nebulizer, and oxygen 4 lpm, concentrator and portability through [facility]. Patient denies HHC. Disposition Plan: Patient to discharge home with family support and follow-up plans in place. Rachel RODRÍGUEZ, RN, CM
[2020-03-02] MEDS: Calcium Carb/Vitamin D 1 TABLET Tablet PO (12:14)
[2020-03-02] MEDS: busPIRone 5 MG Tablet PO ×2 (12:14→22:01)
--- NOTE | 2020-03-02 14:37 | NURSING ---
pepe montague called for update.
--- NOTE | 2020-03-02 17:03 | NURSING ---
spoke with daughter jose braswell
[2020-03-02] MEDS: Montelukast 10 MG Tablet PO (17:15)
[2020-03-02] MEDS: traZODone 50 MG Tablet PO (22:01)
[2020-03-02] MEDS: APIXABAN 2.5 MG TABLET PO (22:02)
[2020-03-03] VITALS (10 sets, daily range): BP systolic 114–149; BP diastolic 51–83; PULSE 67–92; RESP 16–20; TEMP 36.6–37.1; O2SAT 78–100
[2020-03-03] MEDS: Levothyroxine 50 MCG Tablet PO (06:04)
[2020-03-03 06:07] LABS: Absolute Lymphocyte Count 0.74 X10^3/uL (0.83-4.51); Absolute Neutrophil Count 2.7 X10^3/uL (2.0-7.7); Basophil# 0.02 X10^3/uL; Basophil% 0.5 % (0-1); Eosinophils% 4.9 % (0-5); Hematocrit 33.9 % (37-47); Hemoglobin 10.1 g/dL (12.0-15.0); Lymphocyte # 0.74 X10^3/ul (4.0); Lymphocyte % 18.2 % (19-41); Mean Corp Hgb Conc 29.8 g/dL (32-36); Mean Corpuscular Hgb 30.5 pg (27.0-32.0); Mean Corpuscular Volume 102.4 fL (81-99); Mean Platelet Vol. 10.6 fl (6.2-12.0); Monocyte# 0.42 X10^3/uL; Monocyte% 10.3 % (0-10); NRBC Flagged by Analyzer 0 % (0-5); Neutrophil # 2.66 X10^3/uL (2.7-7.7); Neutrophil % 65.6 % (47-70); Platelet Count 165 K/mm3 (150-450); RBC Distribution Width CV 12.2 % (11.6-14.6); RBC Distribution Width SD 46.1 fl (35.1-43.9); Red Blood Count 3.31 M/mm3 (4.2-5.4); White Blood Count 4.1 K/mm3 (4.4-11.0)
[2020-03-03 06:30] LABS: AST(SGOT) 13 U/L (15-37); Alanine Aminotransfer ALT/SGPT 12 U/L (13-56); Albumin, Serum 2.7 g/dL (3.2-5.0); Alkaline Phosphatase 81 U/L (45-117); Anion Gap 3 (5-15); BUN 9 mg/dL (7-18); BUN/Creat Ratio 17.1 RATIO (10-20); Calcium,Total 10.2 mg/dL (8.5-10.1); Chloride 104 mmol/L (98-107); Creatinine, Serum 0.53 mg/dL (0.55-1.02); EST Glomerular Filtration Rate 119 mL/min (>60); Est Glom Filt Rate - Afr Amer 144 mL/min (>60); Estimated Creatinine Clearance 48.45 ml/min; Globulin 2.7 g/dL (2.2-4.2); Glucose 85 mg/dL (74-106); Potassium 3.7 mmol/L (3.5-5.1); Protein, Total 5.4 g/dL (6.4-8.2); Sodium Level 144 mmol/L (136-145)
[2020-03-03] MEDS: Budesonide Respules 0.5 MG/2 ML AMPUL.NEB. INHALATION ×2 (07:04→18:54)
[2020-03-03] MEDS: Ipratropium/Albuterol Sulfate 3 ML AMPUL.NEB INHALATION ×3 (07:04→18:54)
[2020-03-03] MEDS: Iron Polysaccharide Complex 150 MG CAPSULE PO (08:52)
[2020-03-03] MEDS: dilTIAZem CD 240 MG Capsule PO (08:52)
[2020-03-03] MEDS: guaiFENesin 1,200 MG Tablet 1200 MG PO ×2 (08:52→22:03)
[2020-03-03] MEDS: APIXABAN 2.5 MG TABLET PO (08:52)
[2020-03-03] MEDS: Famotidine 20 MG Tablet PO ×2 (08:53→22:05)
[2020-03-03] MEDS: ROFLUMILAST 500 MCG TABLET PO (08:53)
[2020-03-03] MEDS: Magnesium Oxide 400 MG Tablet PO (08:53)
[2020-03-03] MEDS: Sertraline 50 MG Tablet PO (08:54)
--- NOTE | 2020-03-03 09:34 | PN_ITS ---
Patient Problems: Active and Suspected Problems (Last Reviewed 03/02/20 @ 04:[address] Kamlesh Choi MD) Hemoptysis (Acute) Pneumonia (Acute) Reason for Visit: Follow-up on pneumonia Subjective: Patient was seen and examined. She complains of feeling SOB with exertion. Her pulse ox dropped to 84% with ambulation. She has hemoptysis. Eliquis has been held this morning. Denies fever or chills Objective: Physical exam: General: Alert, Oriented x3, Cooperative HEENT: Atraumatic, PERRLA, EOMI, Normocephalic Neck: Supple, No JVD, Negative Carotid Bruits Lungs: Diminished, Wheezes Cardiovascular: Tachycardic, - - Atrial fibrillation Abdomen: Bowel Sounds Present, Soft, Non Tender, Non-Distended Extremities: No clubbing, No cyanosis, No edema, Capillary Refill Less than 3 Seconds Skin: No rashes, No breakdown Musculoskeletal: No Tenderness to Palpation of Joints or Extremities Neurological: Cranial nerves II-XII grossly intact, Neuro grossly intact Psych/Mental Status: Normal Affect, Appropriate Vitals/I&O's: Vital Signs Temp Pulse Resp BP Pulse Ox 98.2 F 92 18 149/72 H 78 03/03/20 09:01 03/03/20 09:01 03/03/20 09:01 03/03/20 09:01 03/03/20 09:05 Oxygen Flow Rate (L/min) [ 5 AMBULATION with Oxygen] Oxygen Flow Rate (L/min) 4 Oxygen Delivery Method Nasal Cannula Weight: 67.614 kg Body Mass Index (BMI) 22.0 Intake and Output for Last 24 Hours 03/01/20 03/02/20 03/03/20 23:59 23:59 23:59 Intake Total 550 / 550 1615.75 / 1815.75 320 / 320 Balance 550 / 550 1615.75 / 1815.75 320 / 320 Microbiology Past 72 Hours 03/02/20 03:20 Sputum, Expectorated/Coughed Gram Stain - Final 03/02/20 03:20 Sputum, Expectorated/Coughed Respiratory Culture - Prelimina ry Appears to be normal respiratory gregory. Further studies to follow. 03/02/20 07:55 Urine, Clean Catch Legionella Antigen - Final 03/02/20 07:55 Urine, Clean Catch Streptococcus pneumoniae Antigen (M - Final Laboratory Results 03/01/20 19:28: Vit D 1,25-Dihydroxy Pending 03/03/20 05:35: WBC 4.1 L, RBC 3.31 L, Hgb 10.1 L, Hct 33.9 L, MCV 102.4 H, MCH 30.5, MCHC 29.8 L, RDW Std Deviation 46.1 H, RDW Coeff of Jeff 12.2, Plt Count 165, MPV 10.6, Immature Gran % (Auto) 0.500, Neut % (Auto) 65.6, Lymph % (Auto) 18.2 L, [place] % (Auto) 10.3 H, Eos % (Auto) 4.9, Baso % (Auto) 0.5, Absolute Neuts (auto) 2.7, Absolute Lymphs (auto) 0.74 L, Nucleated RBC % 0 03/03/20 05:35: Sodium 144, Potassium 3.7, Chloride 104, Carbon Dioxide 37.0 H, Anion Gap 3 L, BUN 9, Creatinine 0.53 L, Estim Creat Clear Calc 48.45, Est GFR (MDRD) Af Amer 144, Est GFR (MDRD) Non-Af 119, BUN/Creatinine Ratio 17.1, Glucose 85, Calcium 10.2 H, Total Bilirubin 0.70, AST 13 L, ALT 12 L, Alkaline Phosphatase 81, Total Protein 5.4 L, Albumin 2.7 L, Globulin 2.7, A lbumin/Globulin Ratio 1.0 03/03/20 05:35: PTH Intact Pending Current Medications Acetaminophen (Tylenol) 650 mg PO Q6H PRN PRN PRN Reason: Pain Score 1-10/Temp > 100.7 F Albuterol Sulfate (Ventolin Aerosols) 2.5 mg INHALATION Q2H PRN PRN PRN Reason: Shortness of Breath/Wheezing Albuterol/Ipratropium (Duoneb) 3 ml INHALATION Q6H.RT [facility] Last Admin: 03/03/20 07:04 Dose: 3 ml Documented by: Apixaban (Eliquis) 2.5 mg PO BID [facility] Last Admin: 03/03/20 08:52 Dose: 2.5 mg Documented by: Budesonide (Pulmicort Aerosol) 0.5 mg INHALATION BID.RT [facility] Last Admin: 03/03/20 07:04 Dose: 0.5 mg Documented by: Buspirone HCl (Buspar) 5 mg PO BID@1200,2200 [facility] Last Admin: 03/02/20 22:01 Dose: 5 mg Documented by: Dextrose (D50w Syringe) 0 gm IV X1 PRN; Protocol PRN Reason: Hypoglycemia Diltiazem HCl (Cardizem Cd) 240 mg PO DAILY [facility] Last Admin: 03/03/20 08:52 Dose: 240 mg Documented by: Famotidine (Pepcid) 20 mg PO BID [facility] Last Admin: 03/03/20 08:53 Dose: 20 mg Documented by: Glucagon () 1 mg IM .X1 PRN PRN Reason: Hypoglycemia Guaifenesin (Mucinex) 1,200 mg PO BID [facility] Last Admin: 03/03/20 08:52 Dose: 1,200 mg Documented by: Azithromycin 500 mg/ Dextrose 255 mls @ 250 mls/hr IV Q24@2200 [facility] Last Infusion: 03/02/20 23:45 Dose: Infused Documented by: Ceftriaxone Sodium 2 gm/ (Sodium Chloride) 50 mls @ 100 mls/hr IV Q24@2200 [facility] Last Infusion: 03/02/20 22:36 Dose: Infused Documented by: Levothyroxine Sodium (Synthroid) 50 mcg PO DAILY@0600 [facility] Last Admin: 03/03/20 06:04 Dose: 50 mcg Documented by: Magnesium Oxide (Mag-Ox 400) 400 mg PO DAILY@0800 [facility] Last Admin: 03/03/20 08:53 Dose: 400 mg Documented by: Melatonin (Melatonin) 3 mg PO QHS PRN PRN PRN Reason: INSOMNIA Montelukast Sodium (Singulair) 10 mg PO DAILY@1700 [facility] Last Admin: 03/02/20 17:15 Dose: 10 mg Documented by: Ondansetron HCl (Zofran) 4 mg IV Q8H PRN PRN PRN Reason: NAUSEA/VOMITING Polysaccharide [facility] ([facility] 150) [facility] Last Admin: 03/03/20 08:52 Dose: 150 mg Documented by: Senna/Docusate Sodium (Senokot-S, Kylee-Colace) 2 tablet PO BID PRN PRN PRN Reason: Constipation Sertraline HCl (Zoloft) 50 mg PO DAILY [facility] Last Admin: 03/03/20 08:54 Dose: 50 mg Documented by: Sodium Chloride () 10 - 40 ml IV UD PRN PRN Reason: Midline Flush Sodium Chloride (0.9% Nacl (Sterile) Posiflush) 10 - 40 ml IV UD PRN PRN Reason: Port access or dressing change Sodium Chloride () 10 - 40 ml IV UD PRN PRN Reason: SALINE FLUSH Trazodone HCl (Desyrel) 50 mg PO QHS [facility] Last Admin: 03/02/20 22:01 Dose: 50 mg Documented by: STROKE Vital Signs/Narrative: Vital Signs Temp Pulse Resp BP Pulse Ox Pulse Ox 03/03/20 09:05 78 03/03/20 09:01 98.2 F 92 18 149/72 H 95 03/03/20 09:00 78 03/03/20 07:05 78 18 95 Medical Necessity - Tobacco Use Smoking Status: Former smoker Assessment/Plan All Active Problems (Last Reviewed 03/02/20 @ 04:[address] Kamlesh Choi MD) Hemoptysis (Acute) Pneumonia (Acute) Acute respiratory failure with hypoxia and hypercapnia (Resolved) Atrial fibrillation with rapid ventricular response (Resolved) CAP (community acquired pneumonia) (Resolved) COPD with acute exacerbation (Resolved) Chronic respiratory failure with hypoxia (Resolved) Healthcare-associated pneumonia (Resolved) History of malnutrition (Resolved) Human metapneumovirus (hMPV) pneumonia (Resolved) Leucocytosis (Resolved) Metabolic alkalosis (Resolved) Metabolic encephalopathy (Resolved) Streptococcal pneumonia (Resolved) Thrush (Resolved) 1. Hemoptysis likely secondary to #2 No masses seen on CT scan of chest Eliquis has been held, will continue to monitor. 2. Community-acquired pneumonia, history of chronic hypoxic respiratory failure, on 4 L of oxygen at home Currently on same amount of oxygen, blood and sputum cultures are pending, urine streptococcal and Legionella antigen negative. Continue on IV ceftriaxone and azithromycin( day 2), continue on maintenance COPD medications 3. Anemia, likely secondary to hemoptysis/hemodilution, Hb remains stable at 10.1 No signs of acute bleeding, will trend labs in a.m. 4. Hypercalcemia, Corrected Ca is 11.2 On Calcium/vitamin; this has been discontinued. Will check Vitamin D, PTH Will give IVF 100mls for 1.5L Repeat blood work in am 5. Paroxysmal atrial fibrillation, rate controlled, continue on Cardizem, off apixaban 6. GERD, on famotidine 7. Hypothyroidism, on Levothyroxine 8. DVT PPx- SCDs, off Apixaban Inpatient E&M: [id number] [facility] Hosp L2
[2020-03-03 11:21] LABS: Phosphorus 2.2 mg/dL (2.5-4.9)
[2020-03-03] MEDS: 0.9% Normal Saline 1,000 ML 100 ML IV ×2 (11:25→22:02)
[2020-03-03] MEDS: busPIRone 5 MG Tablet PO ×2 (11:26→22:03)
--- NOTE | 2020-03-03 14:39 | NURSING ---
clari called with update
[2020-03-03] MEDS: Montelukast 10 MG Tablet PO (16:49)
[2020-03-03] MEDS: traZODone 50 MG Tablet PO (22:03)
[2020-03-04] VITALS (9 sets, daily range): BP systolic 123–150; BP diastolic 62–71; PULSE 62–95; RESP 18–19; TEMP 36.7–37.1; O2SAT 71–99
[2020-03-04] MEDS: Levothyroxine 50 MCG Tablet PO (05:44)
[2020-03-04 06:11] LABS: Absolute Lymphocyte Count 0.62 X10^3/uL (0.83-4.51); Absolute Neutrophil Count 2.7 X10^3/uL (2.0-7.7); Basophil# 0.01 X10^3/uL; Basophil% 0.3 % (0-1); Eosinophil# 0.22 X10^3/uL; Eosinophils% 5.5 % (0-5); Hemoglobin 9.9 g/dL (12.0-15.0); Lymphocyte # 0.62 X10^3/ul (4.0); Lymphocyte % 15.6 % (19-41); Mean Corpuscular Hgb 30.8 pg (27.0-32.0); Mean Corpuscular Volume 102.8 fL (81-99); Mean Platelet Vol. 10.6 fl (6.2-12.0); Monocyte# 0.38 X10^3/uL; Monocyte% 9.5 % (0-10); NRBC Flagged by Analyzer 0 % (0-5); Neutrophil # 2.74 X10^3/uL (2.7-7.7); Neutrophil % 68.8 % (47-70); Platelet Count 153 K/mm3 (150-450); RBC Distribution Width CV 12.4 % (11.6-14.6); RBC Distribution Width SD 46.6 fl (35.1-43.9); Red Blood Count 3.21 M/mm3 (4.2-5.4)
[2020-03-04 06:30] LABS: AST(SGOT) 13 U/L (15-37); Alanine Aminotransfer ALT/SGPT 11 U/L (13-56); Albumin, Serum 2.7 g/dL (3.2-5.0); Alkaline Phosphatase 84 U/L (45-117); Anion Gap 1 (5-15); BUN 7 mg/dL (7-18); BUN/Creat Ratio 14.4 RATIO (10-20); Calcium,Total 9.5 mg/dL (8.5-10.1); Chloride 109 mmol/L (98-107); Creatinine, Serum 0.49 mg/dL (0.55-1.02); EST Glomerular Filtration Rate 131 mL/min (>60); Est Glom Filt Rate - Afr Amer 158 mL/min (>60); Estimated Creatinine Clearance 48.45 ml/min; Globulin 2.7 g/dL (2.2-4.2); Glucose 84 mg/dL (74-106); Potassium 3.5 mmol/L (3.5-5.1); Protein, Total 5.4 g/dL (6.4-8.2); Sodium Level 145 mmol/L (136-145)
[2020-03-04] MEDS: Ipratropium/Albuterol Sulfate 3 ML AMPUL.NEB INHALATION ×2 (06:50→13:26)
[2020-03-04] MEDS: Budesonide Respules 0.5 MG/2 ML AMPUL.NEB. INHALATION (06:50)
--- NOTE | 2020-03-04 07:04 | PCM.PN.HOSP ---
Patient Problems: Active and Suspected Problems (Last Reviewed 03/02/20 @ 04:[address] Kamlesh Choi MD) Hemoptysis (Acute) Pneumonia (Acute) Vitals/I&O's: Vital Signs Temp Pulse Resp BP Pulse Ox 98.0 F 80 19 H 123/63 H 97 03/04/20 02:48 03/04/20 06:50 03/04/20 06:50 03/04/20 02:48 03/04/20 06:50 Oxygen Flow Rate (L/min) [ 5 AMBULATION with Oxygen] Oxygen Flow Rate (L/min) 4 Oxygen Delivery Method Nasal Cannula Weight: 149 lb 1 oz Body Mass Index (BMI) 22.0 Intake and Output for Last 24 Hours 03/02/20 03/03/20 03/04/20 23:59 23:59 23:59 Intake Total 1615.75 / 1815.75 2435.00 / 2435.00 506.67 / 506.67 Balance 1615.75 / 1815.75 2435.00 / 2435.00 506.67 / 506.67 Microbiology Past 72 Hours 03/02/20 03:20 Sputum, Expectorated/Coughed Gram Stain - Final 03/02/20 03:20 Sputum, Expectorated/Coughed Respiratory Culture - Preliminary Appears to be normal respiratory gregory. Further studies to follow. 03/02/20 07:55 Urine, Clean Catch Legionella Antigen - Final 03/02/20 07:55 Urine, Clean Catch Streptococcus pneumoniae Antigen (M - Final Laboratory Results 03/01/20 19:28: Vit D 1,25-Dihydroxy Cancelled 03/03/20 05:35: PTH Intact Pending 03/03/20 10:33: Vitamin D 25-Hydroxy Pending 03/03/20 10:33: Phosphorus 2.2 L 03/04/20 05:35: WBC 4.0 L, RBC 3.21 L, Hgb 9.9 L, Hct 33.0 L, MCV 102.8 H, MCH 30.8, MCHC 30.0 L, RDW Std Deviation 46.6 H, RDW Coeff of Jeff 12.4, Plt Count 153, MPV 10.6, Immature Gran % (Auto) 0.300, Neut % (Auto) 68.8, Lymph % (Auto) 15.6 L, [place] % (Auto) 9.5, Eos % (Auto) 5.5 H, Baso % (Auto) 0.3, Absolute Neuts (auto) 2.7, Absolute Lymphs (auto) 0.62 L, Nucleated RBC % 0 03/04/20 05:35: Sodium 145, Potassium 3.5, Chloride 109 H, Carbon Dioxide 35.0 H, Anion Gap 1 L, BUN 7, Creatinine 0.49 L, Estim Creat Clear Calc 48.45, Est GFR (MDRD) Af Amer 158, Est GFR (MDRD) Non-Af 131, BUN/Creatinine Ratio 14.4, Glucose 84, Calcium 9.5, Total Bilirubin 0.70, AST 13 L, ALT 11 L, Alkaline Phosphatase 84, Total Protein 5.4 L, Albumin 2.7 L, Globulin 2.7, Albumin/Globulin Ratio 1.0 Current Medications Acetaminophen (Tylenol) 650 mg PO Q6H PRN PRN PRN Reason: Pain Score 1-10/Temp > 100.7 F Albuterol Sulfate (Ventolin Aerosols) 2.5 mg INHALATION Q2H PRN PRN PRN Reason: Shortness of Breath/Wheezing Albuterol/Ipratropium (Duoneb) 3 ml INHALATION Q6H.RT [facility] Last Admin: 03/04/20 06:50 Dose: 3 ml Documented by: Budesonide (Pulmicort Aerosol) 0.5 mg INHALATION BID.RT [facility] Last Admin: 03/04/20 06:50 Dose: 0.5 mg Documented by: Buspirone HCl (Buspar) 5 mg PO BID@1200,2200 [facility] Last Admin: 03/03/20 22:03 Dose: 5 mg Documented by: Dextrose (D50w Syringe) 0 gm IV X1 PRN; Protocol PRN Reason: Hypoglycemia Diltiazem HCl (Cardizem Cd) 240 mg PO DAILY [facility] Last Admin: 03/03/20 08:52 Dose: 240 mg Documented by: Famotidine (Pepcid) 20 mg PO BID [facility] Last Admin: 03/03/20 22:05 Dose: 20 mg Documented by: Glucagon () 1 mg IM .X1 PRN PRN Reason: Hypoglycemia Guaifenesin (Mucinex) 1,200 mg PO BID [facility] Last Admin: 03/03/20 22:03 Dose: 1,200 mg Documented by: Azithromycin 500 mg/ Dextrose 255 mls @ 250 mls/hr IV Q24@0 [facility] Last Infusion: 03/03/20 23:03 Dose: Infused Documented by: Ceftriaxone Sodium 2 gm/ (Sodium Chloride) 50 mls @ 100 mls/hr IV Q24@0 [facility] Last Infusion: 03/03/20 21:37 Dose: Infused Documented by: Potassium Phosphate 21 mm/ (Sodium Chloride) 257 mls @ 84 mls/hr IV X1 ONE Stop: 03/04/20 10:07 Levothyroxine Sodium (Synthroid) 50 mcg PO DAILY@0600 [facility] Last Admin: 03/04/20 05:44 Dose: 50 mcg Documented by: Magnesium Oxide (Mag-Ox 400) 400 mg PO DAILY@0800 [facility] Last Admin: 03/03/20 08:53 Dose: 400 mg Documented by: Melatonin (Melatonin) 3 mg PO QHS PRN PRN PRN Reason: INSOMNIA Montelukast Sodium (Singulair) 10 mg PO DAILY@1700 [facility] Last Admin: 03/03/20 16:49 Dose: 10 mg Documented by: Ondansetron HCl (Zofran) 4 mg IV Q8H PRN PRN PRN Reason: NAUSEA/VOMITING Polysaccharide [facility] ([facility]rex 150) [facility] Last Admin: 03/03/20 08:52 Dose: 150 mg Documented by: Senna/Docusate Sodium (Senokot-S, Kylee-Colace) 2 tablet PO BID PRN PRN PRN Reason: Constipation Sertraline HCl (Zoloft) 50 mg PO DAILY [facility] Last Admin: 03/03/20 08:54 Dose: 50 mg Documented by: Sodium Chloride () 10 - 40 ml IV UD PRN PRN Reason: Midline Flush Sodium Chloride (0.9% Nacl (Sterile) Posiflush) 10 - 40 ml IV UD PRN PRN Reason: Port access or dressing change Sodium Chloride () 10 - 40 ml IV UD PRN PRN Reason: SALINE FLUSH Trazodone HCl (Desyrel) 50 mg PO QHS [facility] Last Admin: 03/03/20 22:03 Dose: 50 mg Documented by: STROKE Vital Signs/Narrative: Vital Signs Pulse Resp Pulse Ox 03/04/20 06:50 80 19 H 97 Medical Necessity - Tobacco Use Smoking Status: Former smoker Assessment/Plan All Active Problems (Last Reviewed 03/02/20 @ 04:[address] Kamlesh Choi MD) Hemoptysis (Acute) Pneumonia (Acute) Acute respiratory failure with hypoxia and hypercapnia (Resolved) Atrial fibrillation with rapid ventricular response (Resolved) CAP (community acquired pneumonia) (Resolved) COPD with acute exacerbation (Resolved) Chronic respiratory failure with hypoxia (Resolved) Healthcare-associated pneumonia (Resolved) History of malnutrition (Resolved) Human metapneumovirus (hMPV) pneumonia (Resolved) Leucocytosis (Resolved) Metabolic alkalosis (Resolved) Metabolic encephalopathy (Resolved) Streptococcal pneumonia (Resolved) Thrush (Resolved)
--- NOTE | 2020-03-04 08:08 | CON.PCM_ITS ---
Reason for Consult Date of Consultation: 03/04/20 Reason for Consultation: Hemoptysis, COPD exacerbation History of Present Illness: The patient is a 79-year-old female, with a history as outlined below, who presented to the emergency department on March 01 with complaints of shortness of breath and hemoptysis. The patient had reported the presence of blood-streaked sputum for approximately 2 weeks. She was on systemic anticoagulation with Eliquis during the aforementioned time. The patient does have a prior extensive smoking history along with advanced age COPD and chronic hypoxemic respiratory failure, for which she currently follows with Dr. King on an outpatient basis. The patient has a baseline supplemental oxygen requirement of 4 L/min in her home environment. The patients Eliquis was discontinued by her computer hardware developer 4 days ago. She now reports that she has been still coughing up dark clotted blood. She also reported the presence of frequent epistaxis, the last of which occurred yesterday. On presentation to the emergency department, the patient was noted to be a febrile and hemodynamically stable. Laboratory evaluation revealed no evidence of an elevated white blood cell count. Chemistry profile was largely unrevealing. COVID testing was negative. A CTA chest was obtained and revealed significant bilateral emphysematous changes along with a left basilar airspace opacification. The patient was placed on scheduled aerosol treatments along with antimicrobials. She was subsequently admitted to the medical surgical floor for further management. The patient's hospital course has been uncomplicated to date. She is currently maintaining appropriate oxygen saturations on her 4 L/min requirement at rest. Past Medical History Past Medical History (Chronic Problems): Chronic Problems (Last Reviewed 03/02/20 @ 04:[address] Kamlesh Choi MD) Ankle edema (Chronic) Essential (primary) hypertension (Chronic) Paroxysmal atrial fibrillation (Chronic) COPD (chronic obstructive pulmonary disease) (Chronic) Medical History: Medical History (Last Reviewed 03/02/20 @ 04:[address] Kamlesh Choi MD) Essential (primary) hypertension (Chronic) I10 Paroxysmal atrial fibrillation (Chronic) I48.0 COPD (chronic obstructive pulmonary disease) (Chronic) J44.9 Anxiety F41.9 Anxiety and depression F41.9, F32.9 Epistaxis R04.0 GERD (gastroesophageal reflux disease) K21.9 Hypokalemia E87.6 Hypomagnesemia E83.42 Hypothyroidism E03.9 Insomnia G47.00 Iron deficiency E61.1 Normochromic anemia D64.9 Osteoporosis M81.0 Pulmonary fibrosis J84.10 RLS (restless legs syndrome) G25.81 Vertebral compression fracture M48.50XA Chronic respiratory failure with hypoxia (Resolved) J96.11 Metabolic encephalopathy (Resolved) G93.41 Allergies amoxicillin trihydrate [From Augmentin] Allergy (Verified 03/01/20 19:00) Rash gluten Allergy (Verified 03/01/20 19:00) Other potassium clavulanate [From Augmentin] Allergy (Verified 03/01/20 19:00) Rash risperidone [From Risperdal] Adverse Reaction (Severe, Verified 03/01/20 19:00) Hallucinations esomeprazole magnesium [From Nexium] Adverse Reaction (Verified 03/01/20 19:00) Itching furosemide [From Lasix] Adverse Reaction (Verified 03/01/20 19:00) Hives Sulfa (Sulfonamide Antibiotics) Adverse Reaction (Verified 03/01/20 19:00) CONFUSION sulfamethoxazole [From Bactrim] Adverse Reaction (Verified 03/01/20 19:00) CONFUSION trimethoprim [From Bactrim] Adverse Reaction (Verified 03/01/20 19:00) CONFUSION Home Medications: Ambulatory Orders Medication Instructions Recorded Levothyroxine [Synthroid] 50 mcg PO DAILY 07/12/17 busPIRone [Buspar] 5 mg PO BID 07/23/17 Sertraline HCl [Zoloft] 50 mg PO DAILY 09/13/17 Famotidine [Pepcid] 20 mg PO BID #60 tab 09/24/17 roflumilast 500 mcg tablet 500 mcg PO QDAY 12/03/17 Iron Polysaccharide Complex 150 mg PO DAILYCM 01/26/18 [Ferrex 150] traZODone [Desyrel] 50 mg PO QHS 01/26/18 Magnesium Oxide [Mag-Ox 400] 400 mg PO DAILY@0800 02/04/18 Montelukast [Singulair] 10 mg PO DAILY@1700 #30 tab 02/17/18 azithromycin 250 mg tablet 250 mg PO DAILY 12/06/18 diltiazem HCl 240 mg 240 mg PO QDAY #30 cap 03/20/19 capsule,extended release 24 hr umeclidinium 62.5 mcg/actuation 1 inh INHALATION DAILY 10/25/19 blister powder for inhalation Albuterol Aerosols [Ventolin 2.5 mg INHALATION DAILY 03/01/20 Aerosols] Fluticasone/Vilanterol [Breo 1 ea IH DAILY 03/01/20 Ellipta 200-25 Mcg INH] Albuterol Aerosols [Ventolin 2.5 mg INHALATION Q2H PRN PRN #1 03/04/20 Aerosols] box Cefdinir [Omnicef [equiv]] 300 mg PO Q12H #10 cap 03/04/20 Guaifenesin [Mucinex] 1,200 mg PO BID #20 tab 03/04/20 Prednisone 10 mg PO UD 12 Days #30 tab 03/04/20 Surgical History: Surgical History (Last Reviewed 03/02/20 @ 04:[address] 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 Kamlesh Choi MD) Brother Cancer Sister Cancer Sister COPD (chronic obstructive pulmonary disease) History Items: No pertinent history Paternal Family History: Family History (Last Reviewed 03/02/20 @ 04:[address] Kamlesh Choi MD) Brother Cancer Sister Cancer Sister COPD (chronic obstructive pulmonary disease) History Items: No pertinent history Review of Systems Constitutional: Denies: Chills, Fever, Night Sweats Eyes: Denies: Blurred vision, Double vision HEENT: Reports: Nasal bleeding. Denies: Head Aches, Sinus Congestion, Sinus Drainage Cardiovascular: Denies: Chest Pain, Palpitations Respiratory: Reports: Cough, Hemoptysis, Shortness of Breath, Sputum production Gastrointestinal: Denies: Abdominal Pain, Nausea, Vomiting Genitourinary: Denies: Dysuria Musculoskeletal: Denies: Joint Pain, Joint Tenderness Skin: Denies: Rash, Wounds Neurological: Denies: Numbness, Tingling, Focal weakness Psychiatric: Denies: Anxiety, Depression, Homicidal Ideations, Suicidal Ideations Hematologic/ Lymphatic: Denies: Easy Bruising, Easy Bleeding Objective: The patient's most recent lab work, culture data and imaging studies have all been personally reviewed. - Physical Exam Vitals/I&O's: Vital Signs Temp Pulse Resp BP Pulse Ox 98.0 F 80 19 H 123/63 H 97 03/04/20 02:48 03/04/20 06:50 03/04/20 06:50 03/04/20 02:48 03/04/20 06:50 Oxygen Flow Rate (L/min) [ 5 AMBULATION with Oxygen] Oxygen Flow Rate (L/min) 4 Oxygen Delivery Method Nasal Cannula Weight: 149 lb 1 oz Body Mass Index (BMI) 22.0 Intake and Output for Last 24 Hours 03/02/20 03/03/20 03/04/20 23:59 23:59 23:59 Intake Total 1615.75 / 1815.75 2435.00 / 2435.00 506.67 / 506.67 Balance 1615.75 / 1815.75 2435.00 / 2435.00 506.67 / 506.67 General: Alert, Cooperative, No apparent distress, - - Sitting in bedside recliner HEENT: Atraumatic, Normocephalic Oral: Moist Mucosa, No Gingival or Mucosal Lesions/ Ulcerations Neck: Supple, No Nodes, Trachea Midline Lungs: No rhonchi, No wheeze, No rales, Diminished, - - No conversational dyspnea Cardiovascular: Regular rate, Regular Rhythm Abdomen: Bowel Sounds Present, Soft, Non Tender Extremities: No clubbing, No cyanosis, No edema Skin: No breakdown Musculoskeletal: No Muscle Wasting Lymphatic: No Cervical, Supraclavicular, or Inguinal Adenopathy Neurological: Cranial nerves II-XII grossly intact, Neuro grossly intact Psych/Mental Status: Normal Affect, Appropriate Labs (Last 48 Hours) 03/01/20 03/03/20 03/03/20 19:28 05:35 05:35 WBC 4.1 L RBC 3.31 L Hgb 10.1 L Hct 33.9 L MCV 102.4 H MCH 30.5 MCHC 29.8 L RDW Std Deviation 46.1 H RDW Coeff of Jeff 12.2 Plt Count 165 MPV 10.6 Immature Gran % (Auto) 0.500 Neut % (Auto) 65.6 Lymph % (Auto) 18.2 L Castro % (Auto) 10.3 H Eos % (Auto) 4.9 Baso % (Auto) 0.5 Absolute Neuts (auto) 2.7 Absolute Lymphs (auto) 0.74 L Nucleated RBC % 0 Sodium 144 Potassium 3.7 Chloride 104 Carbon Dioxide 37.0 H Anion Gap 3 L BUN 9 Creatinine 0.53 L Estim Creat Clear Calc 48.45 Est GFR (MDRD) Af Amer 144 Est GFR (MDRD) Non-Af 119 BUN/Creatinine Ratio 17.1 Glucose 85 Calcium 10.2 H Phosphorus Total Bilirubin 0.70 AST 13 L ALT 12 L Alkaline Phosphatase 81 Total Protein 5.4 L Albumin 2.7 L Globulin 2.7 Albumin/Globulin Ratio 1.0 Vitamin D 25-Hydroxy Vit D 1,25-Dihydroxy Cancelled PTH Intact 03/03/20 03/03/20 03/03/20 05:35 10:33 10:33 WBC RBC Hgb Hct MCV MCH MCHC RDW Std Deviation RDW Coeff of Jeff Plt Count MPV Immature Gran % (Auto) Neut % (Auto) Lymph % (Auto) Castro % (Auto) Eos % (Auto) Baso % (Auto) Absolute Neuts (auto) Absolute Lymphs (auto) Nucleated RBC % Sodium Potassium Chloride Carbon Dioxide Anion Gap BUN Creatinine Estim Creat Clear Calc Est GFR (MDRD) Af Amer Est GFR (MDRD) Non-Af BUN/Creatinine Ratio Glucose Calcium Phosphorus 2.2 L Total Bilirubin AST ALT Alkaline Phosphatase Total Protein Albumin Globulin Albumin/Globulin Ratio Vitamin D 25-Hydroxy Pending Vit D 1,25-Dihydroxy PTH Intact Pending 03/04/20 03/04/20 05:35 05:35 WBC 4.0 L RBC 3.21 L Hgb 9.9 L Hct 33.0 L MCV 102.8 H MCH 30.8 MCHC 30.0 L RDW Std Deviation 46.6 H RDW Coeff of Jeff 12.4 Plt Count 153 MPV 10.6 Immature Gran % (Auto) 0.300 Neut % (Auto) 68.8 Lymph % (Auto) 15.6 L Castro % (Auto) 9.5 Eos % (Auto) 5.5 H Baso % (Auto) 0.3 Absolute Neuts (auto) 2.7 Absolute Lymphs (auto) 0.62 L Nucleated RBC % 0 Sodium 145 Potassium 3.5 Chloride 109 H Carbon Dioxide 35.0 H Anion Gap 1 L BUN 7 Creatinine 0.49 L Estim Creat Clear Calc 48.45 Est GFR (MDRD) Af Amer 158 Est GFR (MDRD) Non-Af 131 BUN/Creatinine Ratio 14.4 Glucose 84 Calcium 9.5 Phosphorus Total Bilirubin 0.70 AST 13 L ALT 11 L Alkaline Phosphatase 84 Total Protein 5.4 L Albumin 2.7 L Globulin 2.7 Albumin/Globulin Ratio 1.0 Vitamin D 25-Hydroxy Vit D 1,25-Dihydroxy PTH Intact Microbiology 03/02/20 03:20 Sputum, Expectorated/Coughed Gram Stain - Final 03/02/20 03:20 Sputum, Expectorated/Coughed Respiratory Culture - Preliminary Appears to be normal respiratory gregory. Further studies to follow. 03/02/20 07:55 Urine, Clean Catch Legionella Antigen - Final 03/02/20 07:55 Urine, Clean Catch Streptococcus pneumoniae Antigen (M - Final Clinical Impression(s) from Imaging Studies Chest CTA 03/01/20 21:33 IMPRESSION: No pulmonary embolism, aortic aneurysm, or aortic dissection. Severe pulmonary emphysema. Dense consolidation within the left lower lobe likely representing pneumonia. Cardiomegaly with likely poor cardiac output. Fibrosis posteriorly within the right upper lobe. Some insufficiency fractures within the thoracic spine but I do not believe are acute Individualized dose optimization techniques were used for this CT. at 2236 Reported and signed by: Yoav Bruno MD Electronically Signed: Yoav Burno MD at 22:35 EDT Tel , Service support , Current Medications Acetaminophen (Tylenol) 650 mg PO Q6H PRN PRN PRN Reason: Pain Score 1-10/Temp > 100.7 F Albuterol Sulfate (Ventolin Aerosols) 2.5 mg INHALATION Q2H PRN PRN PRN Reason: Shortness of Breath/Wheezing Albuterol/Ipratropium (Duoneb) 3 ml INHALATION Q6H.RT STEVE Last Admin: 03/04/20 06:50 Dose: 3 ml Documented by: Budesonide (Pulmicort Aerosol) 0.5 mg INHALATION BID.RT STEVE Last Admin: 03/04/20 06:50 Dose: 0.5 mg Documented by: Buspirone HCl (Buspar) 5 mg PO BID@1200,2200 COUNTS INCLUDE 234 BEDS AT THE [facility] Last Admin: 03/03/20 22:03 Dose: 5 mg Documented by: Dextrose (D50w Syringe) 0 gm IV X1 PRN; Protocol PRN Reason: Hypoglycemia Diltiazem HCl (Cardizem Cd) 240 mg PO DAILY COUNTS INCLUDE 234 BEDS AT THE [facility] Last Admin: 03/03/20 08:52 Dose: 240 mg Documented by: Famotidine (Pepcid) 20 mg PO BID COUNTS INCLUDE 234 BEDS AT THE [facility] Last Admin: 03/03/20 22:05 Dose: 20 mg Documented by: Glucagon () 1 mg IM .X1 PRN PRN Reason: Hypoglycemia Guaifenesin (Mucinex) 1,200 mg PO BID COUNTS INCLUDE 234 BEDS AT THE [facility] Last Admin: 03/03/20 22:03 Dose: 1,200 mg Documented by: Azithromycin 500 mg/ Dextrose 255 mls @ 250 mls/hr IV Q24@2200 COUNTS INCLUDE 234 BEDS AT THE [facility] Last Infusion: 03/03/20 23:03 Dose: Infused Documented by: Ceftriaxone Sodium 2 gm/ (Sodium Chloride) 50 mls @ 100 mls/hr IV Q24@2200 COUNTS INCLUDE 234 BEDS AT THE [facility] Last Infusion: 03/03/20 21:37 Dose: Infused Documented by: Potassium Phosphate 21 mm/ (Sodium Chloride) 257 mls @ 84 mls/hr IV X1 ONE Stop: 03/04/20 11:03 Levothyroxine Sodium (Synthroid) 50 mcg PO DAILY@0600 COUNTS INCLUDE 234 BEDS AT THE [facility] Last Admin: 03/04/20 05:44 Dose: 50 mcg Documented by: Magnesium Oxide (Mag-Ox 400) 400 mg PO DAILY@0800 COUNTS INCLUDE 234 BEDS AT THE [facility] Last Admin: 03/03/20 08:53 Dose: 400 mg Documented by: Melatonin (Melatonin) 3 mg PO QHS PRN PRN PRN Reason: INSOMNIA Montelukast Sodium (Singulair) 10 mg PO DAILY@1700 COUNTS INCLUDE 234 BEDS AT THE [facility] Last Admin: 03/03/20 16:49 Dose: 10 mg Documented by: Ondansetron HCl (Zofran) 4 mg IV Q8H PRN PRN PRN Reason: NAUSEA/VOMITING Polysaccharide Iron Complex (Ferrex 150) 150 mg PO DAILYCM COUNTS INCLUDE 234 BEDS AT THE [facility] Last Admin: 03/03/20 08:52 Dose: 150 mg Documented by: Senna/Docusate Sodium (Senokot-S, Kylee-Colace) 2 tablet PO BID PRN PRN PRN Reason: Constipation Sertraline HCl (Zoloft) 50 mg PO DAILY COUNTS INCLUDE 234 BEDS AT THE [facility] Last Admin: 03/03/20 08:54 Dose: 50 mg Documented by: Sodium Chloride () 10 - 40 ml IV UD PRN PRN Reason: Midline Flush Sodium Chloride (0.9% Nacl (Sterile) Posiflush) 10 - 40 ml IV UD PRN PRN Reason: Port access or dressing change Sodium Chloride () 10 - 40 ml IV UD PRN PRN Reason: SALINE FLUSH Trazodone HCl (Desyrel) 50 mg PO QHS COUNTS INCLUDE 234 BEDS AT THE [facility] Last Admin: 03/03/20 22:03 Dose: 50 mg Documented by: Assessment/Plan All Active Problems (Last Reviewed 03/02/20 @ 04:[address] Kamlesh Choi MD) Hemoptysis (Acute) Pneumonia (Acute) Acute respiratory failure with hypoxia and hypercapnia (Resolved) Atrial fibrillation with rapid ventricular response (Resolved) CAP (community acquired pneumonia) (Resolved) COPD with acute exacerbation (Resolved) Chronic respiratory failure with hypoxia (Resolved) Healthcare-associated pneumonia (Resolved) History of malnutrition (Resolved) Human metapneumovirus (hMPV) pneumonia (Resolved) Leucocytosis (Resolved) Metabolic alkalosis (Resolved) Metabolic encephalopathy (Resolved) Streptococcal pneumonia (Resolved) Thrush (Resolved) RECOMMENDATIONS: 1. Continue antimicrobials with plans to complete a 7-day treatment course. 2. Plan for prednisone taper at discharge. 3. Continue scheduled bronchodilators. 4. Continue to hold Eliquis. 5. Perform walking oximetry study prior to consideration for discharge home. 6. Outpatient pulmonary follow-up within 2 weeks of discharge is warranted. IMPRESSIONS: 1. Hemoptysis Most likely due to prior systemic anticoagulation with Eliquis coupled with underlying pulmonary infectious process. In addition, the patient reports frequent episodes of epistaxis, making this also a contributing etiology. At the present time, the patient is only coughing up what is likely old, clotted blood. Her Eliquis has been on hold accordingly. I would recommend that we continue her on antimicrobials to complete a 7-day treatment course. It would be reasonable to place her on prednisone with plans for a taper at discharge. Perform walking oximetry study prior to consideration for discharge home. The patient should ideally follow-up with her primary computer hardware developer within 2 weeks of discharge. If indicated, repeat chest imaging can be obtained in 6 to 8 weeks to document resolution of the patient's basilar infiltrate. 2. COPD with exacerbation Likely secondary to community-acquired pneumonia. Infectious work-up has been unrevealing to date. Nevertheless, I would recommend to be continue antimicrobials empirically to complete a 7-day treatment course. The patient can be discharged home with a prednisone taper, with plans to follow-up with her primary computer hardware developer within 2 weeks. 3. History of tobacco dependency in remission/paroxysmal atrial fibrillation/GERD/hypothyroidism Complicates care, management, recovery and prognosis. Okay to continue home medications as indicated. This note was generated with [employer] dictation software. It may contain incorrect words, spelling, and punctuation that were not noted in checking the note before signing. Inpatient E&M: 28575 Init Hosp L3
[2020-03-04 08:41] LABS: PTHIN 124.8 pg/mL (18.4-80.1)
--- NOTE | 2020-03-04 08:42 | DCINST_ITS ---
- Discharge Diagnoses Current Active Problems: Current Active and Chronic Problems (Last Reviewed 03/02/20 @ 04:[address] Kamlesh Choi MD) 1. Acute hemoptysis, Epistaxis with Acute on Chronic Anemia, likely secondary to acute blood loss anemia and concurrent Fe deficiency anemia secondary to #2 2. Community-acquired pneumonia with Chronic Hypoxic Respiratory Failure 3. Acute on Chronic COPD with Chronic Hypoxic Respiratory Failure 4. Chronic pulmonary fibrosis 5. Paroxysmal atrial fibrillation 6. Chronic hypoxic respiratory failure 7. Anxiety and depression 8. Hypertension 9. Hypothyroidism 10. GERD 11. Restless leg syndrome 12. Hypercalcemia, improved, likely secondary to supplementation You will use the following diet at home:: No restrictions Your food should be the consistency of: Regular Your liquids should be the consistency of: Regular/Thin Discharge Activity: - - Avoid aggressive activity until clinically improved with repeat primary care and pulmonary evavluations as well as complete resolution of antibiotics and steroids. May resume sexual activity in: 10-14 days Weight Bearing Status: Weight bearing as tolerated Call your doctor if you observe: Fever of 101 or Higher, Inability to urinate, Inability to have a bowel movement, Shortness of breath, Dizziness, Fainting spells, Chest pain, Uncontrolled pain Instructions: What Is Pneumonia?, Using Oxygen Safely, Using Oxygen at Home, Preventing Pneumonia, Treating Pneumonia, What Is COPD?, Chronic Lung Disease: Preventing Lung Infections, ED Hemoptysis Additional Instructions: Please continue antibiotic therapy and steroid taper per pulmonary recommendation following discharge to completion. Please continue oxygen supplementation with wean to home regimen per primary care and pulmonary follow-up evaluation discretion. During the admission your calcium level was noted to be elevated however this has normalized with fluids. Vitamin D level and PTH testing was obtained and pending at discharge. You may follow these levels up with your primary care physician and reassess restarting your calcium supplementation which has been discontinued. Given bloody noses and coughing up blood with recent infection please remain off of your anticoagulation until complete resolution of current infection and re-discussions with your primary care physician as well as repeat hemoglobin testing in the office if felt appropriate. Pending Tests on Discharge: PTH, Vitamin D. Allergies/Adverse Reactions: Allergies amoxicillin trihydrate [From Augmentin] Allergy (Verified 03/01/20 19:00) Rash gluten Allergy (Verified 03/01/20 19:00) Other potassium clavulanate [From Augmentin] Allergy (Verified 03/01/20 19:00) Rash risperidone [From Risperdal] Adverse Reaction (Severe, Verified 03/01/20 19:00) Hallucinations esomeprazole magnesium [From Nexium] Adverse Reaction (Verified 03/01/20 19:00) Itching furosemide [From Lasix] Adverse Reaction (Verified 03/01/20 19:00) Hives Sulfa (Sulfonamide Antibiotics) Adverse Reaction (Verified 03/01/20 19:00) CONFUSION sulfamethoxazole [From Bactrim] Adverse Reaction (Verified 03/01/20 19:00) CONFUSION trimethoprim [From Bactrim] Adverse Reaction (Verified 03/01/20 19:00) CONFUSION Medications to take at Discharge Levothyroxine [Synthroid] 50 mcg PO DAILY 07/12/17 busPIRone [Buspar] 5 mg PO BID 07/23/17 Sertraline HCl [Zoloft] 50 mg PO DAILY 09/13/17 Famotidine [Pepcid] 20 mg PO BID #60 tab 09/24/17 roflumilast 500 mcg tablet 500 mcg PO QDAY 12/03/17 Iron Polysaccharide Complex [Ferrex 150] 150 mg PO DAILYCM 01/26/18 traZODone [Desyrel] 50 mg PO QHS 01/26/18 Magnesium Oxide [Mag-Ox 400] 400 mg PO DAILY@0800 02/04/18 Montelukast [Singulair] 10 mg PO DAILY@1700 #30 tab 02/17/18 azithromycin 250 mg tablet 250 mg PO DAILY 12/06/18 diltiazem HCl 240 mg capsule,extended release 24 hr 240 mg PO QDAY #30 cap 03/20/19 umeclidinium 62.5 mcg/actuation blister powder for inhalation 1 inh INHALATION DAILY 10/25/19 Albuterol Aerosols [Ventolin Aerosols] 2.5 mg INHALATION DAILY 03/01/20 Fluticasone/Vilanterol [Breo Ellipta 200-25 Mcg INH] 1 ea IH DAILY 03/01/20 Albuterol Aerosols [Ventolin Aerosols] 2.5 mg INHALATION Q2H PRN PRN #1 box 03/04/20 Cefdinir [Omnicef [equiv]] 300 mg PO Q12H #10 cap 03/04/20 Guaifenesin [Mucinex] 1,200 mg PO BID #20 tab 03/04/20 Prednisone 10 mg PO UD 12 Days #30 tab 03/04/20 The following prescriptions were given: Guaifenesin [Mucinex] 1,200 mg PO BID #20 tab Transmission Status: Pending to [id number] Cefdinir [Omnicef [equiv]] 300 mg PO Q12H #10 cap Transmission Status: P[id number] Prednisone 10 mg PO UD 12 Days #30 tab Prescription Printed Albuterol Aerosols [Ventolin Aerosols] 2.5 mg INHALATION Q2H PRN PRN #1 box PRN Reason: Shortness of Breath/Wheezing Transmission Status: Pending to [id number] Primary Care Physician: Alexey Herman MD [Primary Care Provider] - Please follow up with your Primary Care Physician in: Please follow-up within 3- 5 days to review admission. Test Results: Test results from this visit will be discussed in further detail at your follow- up appointment, if applicable. Please Follow Up With: Parvez King MD When: Please follow-up within 1-2 weeks for re-evaluation. Proposed Discharge Date: 03/04/20
[2020-03-04 08:45] LABS: Vitamin D,25 Hydroxy 11.3 ng/mL
--- NOTE | 2020-03-04 08:56 | PCM.DC.SUM ---
Discharge Date and Diagnosis - Problem List Patient Problems: Active and Suspected Problems (Last Reviewed 03/02/20 @ 04:[address] Kamlesh Choi MD) Hemoptysis (Acute) Pneumonia (Acute) Date of Admission: 03/01/20 Date of Discharge: 03/04/20 - Primary Discharge Diagnosis Acute Problems: Active Problems (Last Reviewed 03/02/20 @ 04:[address] Kamlesh Choi MD) 1. Acute hemoptysis, Epistaxis with Acute on Chronic Anemia, likely secondary to acute blood loss anemia and concurrent Fe deficiency anemia secondary to #2 2. Community-acquired pneumonia with Chronic Hypoxic Respiratory Failure 3. Acute on Chronic COPD with Chronic Hypoxic Respiratory Failure 4. Chronic pulmonary fibrosis 5. Paroxysmal atrial fibrillation 6. Chronic hypoxic respiratory failure 7. Anxiety and depression 8. Hypertension 9. Hypothyroidism 10. GERD 11. Restless leg syndrome 12. Hypercalcemia, improved, likely secondary to supplementation - Secondary Discharge Diagnosis Chronic Problems: Chronic Problems (Last Reviewed 03/02/20 @ 04:[address] Kamlesh Choi MD) Ankle edema (Chronic) Essential (primary) hypertension (Chronic) Paroxysmal atrial fibrillation (Chronic) COPD (chronic obstructive pulmonary disease) (Chronic) Hospital Course and Treatment Pulmonary consultation Dr. Garcia Operations: None Procedures: EKG Summary of Care Provided: The patient is a 79 y/o F w/ PMHx: Chronic COPD w/ Chronic Hypoxic Respiratory Failure (4L NC), Chronic pulmonary fibrosis following w/ Dr. 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 on day of ED presentation. ED evaluation with CBC with no market WBC elevation or significant shift, lactic acid 1.1, COVID testing negative, CTPA with no evidence of pulmonary embolism, aortic aneurysm or aortic dissection with evidence of severe pulmonary emphysema with a dense consolidation with a left lower lobe consistent with pneumonia as well as fibrotic changes in the right upper lobe. Patient was admitted to medical surgical floor, initiated on antibiotic therapy and patient's anticoagulant therapy was discontinued. Patient was evaluated by pulmonary medicine who recommended addition of steroid therapy with taper at discharge as well as continued antibiotic therapy and hold on patient's anticoagulant therapy. Patient had clinical improvement of hemoptysis and hemoglobin stabilized with initial 12.2 with decreased to 10.1. Patient oxygenation testing performed prior to discharge with noted to be 94% on 4 L nasal cannula, 71% with 4 L with ambulation with improvement to 90% on 6 L with activity. During admission patient did have elevated calcium level and was noted to be on supplementation which was discontinued with PTH and vitamin D levels requested which were pending upon discharge. Following evaluation by pulmonary medicine patient further service was felt appropriate for discharge therefore she was discharged to home on completion antibiotic therapy, prednisone 12-day taper per their recommendation, continued oxygen supplementation with close follow-up with her primary care physician as well as pulmonary medicine, Dr. King with who she follows outpatient. Recommended continue to hold on patient's anticoagulant therapy until clinically improved and resolved from current pneumonia presentation. DAY OF DISCHARGE PROGRESS NOTE: Subjective: Patient without acute event overnight per self and nursing report. Patient notes feeling improved since initial presentation although still does have some dyspnea when she has increased exertion and still occasional hemoptysis but significantly improved and more brown in appearance than bright fresh. Patient denies fever, chills, nausea, emesis, abdominal pain, chest pain. Patient agreeable to discharge to home with continued close outpatient follow-up. Patient will be discharged with follow-up with primary care physician within 3-5 days in addition to Pulmonary medicine. Objective: T 90.8, heart 95, BP 150/71, respiratory rate 18, 95% on 4 L nasal cannula. Physical Examination: General: awake, alert, oriented x 3 and cooperative, seated upright in the medical surgical bedside chair, no acute distress. Skin: normal color, turgor, no icterus, cyanosis. HEENT: AT/NC, EOMI, PERRLA, MMM. Lungs: Diffusely diminished, greater bases, improved moderate effort, no current wheezing, rales or rhonchi. Heart: Rate controlled, irregular; no gallop, rub audible. Abdomen: soft, NTTP, ND, normal BS. Extremities: no cyanosis, clubbing, or edema. Neurological: patient awake, alert, oriented x 3; cognitive function appears intact upon questioning,; pupils equally reactive to light and accomodation; cranial nerves II-XII grossly normal, moving all 4 extremities, strength moderately global decrease secondary to acute presentation, improving. Psychiatric: affect appears improved, normal, no acute evidence of depressive or anxiety feelings. Assessment and Plan: Please see hospital summary above. Patient Problems: Active and Suspected Problems (Last Reviewed 03/02/20 @ 04:[address] Kamlesh Choi MD) Hemoptysis (Acute) Pneumonia (Acute) - Physical Exam Vitals/I&O's: Vital Signs Temp Pulse Resp BP Pulse Ox 98.0 F 80 19 H 123/63 H 97 03/04/20 02:48 03/04/20 06:50 03/04/20 06:50 03/04/20 02:48 03/04/20 06:50 Oxygen Flow Rate (L/min) [ 5 AMBULATION with Oxygen] Oxygen Flow Rate (L/min) 4 Oxygen Delivery Method Nasal Cannula Weight: 149 lb 1 oz Body Mass Index (BMI) 22.0 Intake and Output for Last 24 Hours 03/02/20 03/03/20 03/04/20 23:59 23:59 23:59 Intake Total 1615.75 / 1815.75 2435.00 / 2435.00 506.67 / 506.67 Balance 1615.75 / 1815.75 2435.00 / 2435.00 506.67 / 506.67 Microbiology Past 72 Hours 03/01/20 22:15 Blood Culture (Wb) - Arm Left Blood Culture - Preliminary No growth in 48 hours. 03/01/20 22:20 Blood Culture (Wb) - Right Forearm Blood Culture - Preliminary No growth in 48 hours. 03/02/20 03:20 Sputum, Expectorated/Coughed Gram Stain - Final 03/02/20 03:20 Sputum, Expectorated/Coughed Respiratory Culture - Preliminary Appears to be normal respiratory gregory. Further studies to follow. 03/02/20 07:55 Urine, Clean Catch Legionella Antigen - Final 03/02/20 07:55 Urine, Clean Catch Streptococcus pneumoniae Antigen (M - Final Laboratory Results 03/01/20 19:28: Vit D 1,25-Dihydroxy Cancelled 03/03/20 05:35: PTH Intact 124.8 H 03/03/20 10:33: Vitamin D 25-Hydroxy 11.3 03/03/20 10:33: Phosphorus 2.2 L 03/04/20 05:35: WBC 4.0 L, RBC 3.21 L, Hgb 9.9 L, Hct 33.0 L, MCV 102.8 H, MCH 30.8, MCHC 30.0 L, RDW Std Deviation 46.6 H, RDW Coeff of Jeff 12.4, Plt Count 153, MPV 10.6, Immature Gran % (Auto) 0.300, Neut % (Auto) 68.8, Lymph % (Auto) 15.6 L, Turner % (Auto) 9.5, Eos % (Auto) 5.5 H, Baso % (Auto) 0.3, Absolute Neuts (auto) 2.7, Absolute Lymphs (auto) 0.62 L, Nucleated RBC % 0 03/04/20 05:35: Sodium 145, Potassium 3.5, Chloride 109 H, Carbon Dioxide 35.0 H, Anion Gap 1 L, BUN 7, Creatinine 0.49 L, Estim Creat Clear Calc 48.45, Est GFR (MDRD) Af Amer 158, Est GFR (MDRD) Non-Af 131, BUN/Creatinine Ratio 14.4, Glucose 84, Calcium 9.5, Total Bilirubin 0.70, AST 13 L, ALT 11 L, Alkaline Phosphatase 84, Total Protein 5.4 L, Albumin 2.7 L, Globulin 2.7, Albumin/Globulin Ratio 1.0 Current Medications Acetaminophen (Tylenol) 650 mg PO Q6H PRN PRN PRN Reason: Pain Score 1-10/Temp > 100.7 F Albuterol Sulfate (Ventolin Aerosols) 2.5 mg INHALATION Q2H PRN PRN PRN Reason: Shortness of Breath/Wheezing Albuterol/Ipratropium (Duoneb) 3 ml INHALATION Q6H.RT [facility] Last Admin: 03/04/20 06:50 Dose: 3 ml Documented by: Budesonide (Pulmicort Aerosol) 0.5 mg INHALATION BID.RT [facility] Last Admin: 03/04/20 06:50 Dose: 0.5 mg Documented by: Buspirone HCl (Buspar) 5 mg PO BID@1200,2200 [facility] Last Admin: 03/03/20 22:03 Dose: 5 mg Documented by: Dextrose (D50w Syringe) 0 gm IV X1 PRN; Protocol PRN Reason: Hypoglycemia Diltiazem HCl (Cardizem Cd) 240 mg PO DAILY [facility] Last Admin: 03/03/20 08:52 Dose: 240 mg Documented by: Famotidine (Pepcid) 20 mg PO BID [facility] Last Admin: 03/03/20 22:05 Dose: 20 mg Documented by: Glucagon () 1 mg IM .X1 PRN PRN Reason: Hypoglycemia Guaifenesin (Mucinex) 1,200 mg PO BID [facility] Last Admin: 03/03/20 22:03 Dose: 1,200 mg Documented by: Azithromycin 500 mg/ Dextrose 255 mls @ 250 mls/hr IV Q24@2200 [facility] Last Infusion: 03/03/20 23:03 Dose: Infused Documented by: Ceftriaxone Sodium 2 gm/ (Sodium Chloride) 50 mls @ 100 mls/hr IV Q24@2200 [facility] Last Infusion: 03/03/20 21:37 Dose: Infused Documented by: Potassium Phosphate 21 mm/ (Sodium Chloride) 257 mls @ 84 mls/hr IV X1 ONE Stop: 03/04/20 11:03 Levothyroxine Sodium (Synthroid) 50 mcg PO DAILY@0600 [facility] Last Admin: 03/04/20 05:44 Dose: 50 mcg Documented by: Magnesium Oxide (Mag-Ox 400) 400 mg PO DAILY@0800 [facility] Last Admin: 03/03/20 08:53 Dose: 400 mg Documented by: Melatonin (Melatonin) 3 mg PO QHS PRN PRN PRN Reason: INSOMNIA Montelukast Sodium (Singulair) 10 mg PO DAILY@1700 [facility] Last Admin: 03/03/20 16:49 Dose: 10 mg Documented by: Ondansetron HCl (Zofran) 4 mg IV Q8H PRN PRN PRN Reason: NAUSEA/VOMITING Polysaccharide Iron [facility] ([facility]rex 150) [facility] Admin: 03/03/20 08:52 Dose: 150 mg Documented by: Senna/Docusate Sodium (Senokot-S, Kylee-Colace) 2 tablet PO BID PRN PRN PRN Reason: Constipation Sertraline HCl (Zoloft) 50 mg PO DAILY [facility] Last Admin: 03/03/20 08:54 Dose: 50 mg Documented by: Sodium Chloride () 10 - 40 ml IV UD PRN PRN Reason: Midline Flush Sodium Chloride (0.9% Nacl (Sterile) Posiflush) 10 - 40 ml IV UD PRN PRN Reason: Port access or dressing change Sodium Chloride () 10 - 40 ml IV UD PRN PRN Reason: SALINE FLUSH Trazodone HCl (Desyrel) 50 mg PO QHS [facility] Last Admin: 03/03/20 22:03 Dose: 50 mg Documented by: Discharge Activity: - - Avoid aggressive activity until clinically improved with repeat primary care and pulmonary evavluations as well as complete resolution of antibiotics and steroids. May resume sexual activity in: 10-14 days Weight Bearing Status: Weight bearing as tolerated Call your doctor if you observe: Fever of 101 or Higher, Inability to urinate, Inability to have a bowel movement, Shortness of breath, Dizziness, Fainting spells, Chest pain, Uncontrolled pain Home Medications: Medications to take at Discharge Levothyroxine [Synthroid] 50 mcg PO DAILY 07/12/17 busPIRone [Buspar] 5 mg PO BID 07/23/17 Sertraline HCl [Zoloft] 50 mg PO DAILY 09/13/17 Famotidine [Pepcid] 20 mg PO BID #60 tab 09/24/17 roflumilast 500 mcg tablet 500 mcg PO QDAY 12/03/17 Iron Polysaccharide Complex [Ferrex 150] 150 mg PO DAILYCM 01/26/18 traZODone [Desyrel] 50 mg PO QHS 01/26/18 Magnesium Oxide [Mag-Ox 400] 400 mg PO DAILY@0800 02/04/18 Montelukast [Singulair] 10 mg PO DAILY@1700 #30 tab 02/17/18 azithromycin 250 mg tablet 250 mg PO DAILY 12/06/18 diltiazem HCl 240 mg capsule,extended release 24 hr 240 mg PO QDAY #30 cap 03/20/19 umeclidinium 62.5 mcg/actuation blister powder for inhalation 1 inh INHALATION DAILY 10/25/19 Albuterol Aerosols [Ventolin Aerosols] 2.5 mg INHALATION DAILY 03/01/20 Fluticasone/Vilanterol [Breo Ellipta 200-25 Mcg INH] 1 ea IH DAILY 03/01/20 Albuterol Aerosols [Ventolin Aerosols] 2.5 mg INHALATION Q2H PRN PRN #1 box 03/04/20 Cefdinir [Omnicef [equiv]] 300 mg PO Q12H #10 cap 03/04/20 Guaifenesin [Mucinex] 1,200 mg PO BID #20 tab 03/04/20 Prednisone 10 mg PO UD 12 Days #30 tab 03/04/20 Following Prescrptions Were Given to Patient: Guaifenesin [Mucinex] 1,200 mg PO BID #20 tab Transmission Status: Received by [id number] Cefdinir [Omnicef [equiv]] 300 mg PO Q12H #10 cap Transmission Status: Received by [id number] Prednisone 10 mg PO UD 12 Days #30 tab Prescription Printed Albuterol Aerosols [Ventolin Aerosols] 2.5 mg INHALATION Q2H PRN PRN #1 box PRN Reason: Shortness of Breath/Wheezing Transmission Status: Received by [id number] Primary Care Physician: Alexey Herman MD [Primary Care Provider] - Please follow up with your Primary Care Physician in: Please follow-up within 3-5 days to review admission. Please Follow Up With: Parvez King MD When: Please follow-up within 1-2 weeks for re-evaluation. Patient Instructions: What Is COPD?, Chronic Lung Disease: Preventing Lung Infections, Using Oxygen Safely, What Is Pneumonia?, Using Oxygen at Home, Preventing Pneumonia, Treating Pneumonia, ED Hemoptysis Disposition: Home Minutes spent on discharge:: 35 Patient Condition:: Fair Medical Necessity - Tobacco Use Smoking Status: Former smoker Meaningful Use Info Meaningful Use Diagnoses (Choose all that apply): None applicable Inpatient E&M: 44379 [facility]
[2020-03-04] MEDS: Famotidine 20 MG Tablet PO (09:11)
[2020-03-04] MEDS: guaiFENesin 1,200 MG Tablet 1200 MG PO (09:11)
[2020-03-04] MEDS: dilTIAZem CD 240 MG Capsule PO (09:11)
[2020-03-04] MEDS: Iron Polysaccharide Complex 150 MG CAPSULE PO (09:11)
[2020-03-04] MEDS: Magnesium Oxide 400 MG Tablet PO (09:11)
[2020-03-04] MEDS: ROFLUMILAST 500 MCG TABLET PO (09:12)
[2020-03-04] MEDS: Sertraline 50 MG Tablet PO (09:13)
--- NOTE | 2020-03-04 10:07 | NURSING ---
did not check pts O2 on room air - pt wears 4L contin. at home. up walked to BR O2 dropped to 71% on 4L. increased O2 to 5L for 85%. took 6L to recover to 90%
[2020-03-04] MEDS: 0.9% Saline Lock 10 ML Syringe IV (10:50)
[2020-03-04] MEDS: predniSONE 20 MG Tablet 40 MG PO (13:11)
[2020-03-04] MEDS: busPIRone 5 MG Tablet PO (13:11)
--- NOTE | 2020-03-04 13:40 | CASEMGMT ---
ETHEL HANSON updated that patient will need 6lpm of oxygen with ambulation. Patient normally wears 4lpm at home through [facility]. ETHEL HANSON received script for new oxygen order and sent to [facility]. ETHEL HANSON updated the patient and states she has tanks at home. CM will continue to follow this patient and plan for a safe discharge.
--- NOTE | 2020-03-05 14:56 | CASEMGMT ---
ETHEL HANSON Discharge Follow-up Phone Call: KASHMIR: Leonarda Strata: 3 Call Date: 03/05/20 Discharge Date:03/04/2020 Time of Call: 1450 Duration: 6 min Admitting Diagnosis: Community Acquired Pneumonia ETHEL HANSON completed follow-up phone call after recent hospitalization. Patient states that she twisted her back when she came home. ETHEL HANSON suggested patient use heating pad and follow-up with PCP if still continues to bother her. Patient had no questions regarding discharge instructions. Patient was able to fill prescriptions without any issues. Patient states she has left message with PCP and Dr. King to schedule appts. Patient had no further questions or concerns at this time.
== END 2020-03-04 15:00 | disposition home or self-care (01) | DRG 190 ==
LOC: ED 22:47 → MS3 03-02 01:22
PROVIDERS: Internal Medicine; Admitting Provider Hospitalist; Emergency Provider Emergency Medicine; PCP Family Medicine; Referring Provider Hospitalist; Visit Provider Family Medicine
DX: J44.0 Chronic obstructive pulmonary disease with (acute) lower respiratory infection (principal); J18.9 Pneumonia, unspecified organism; R04.2 Hemoptysis; J96.11 Chronic respiratory failure with hypoxia; D50.9 Iron deficiency anemia, unspecified; J44.1 Chronic obstructive pulmonary disease with (acute) exacerbation; E83.52 Hypercalcemia; J84.10 Pulmonary fibrosis, unspecified; I48.0 Paroxysmal atrial fibrillation; I10 Essential (primary) hypertension; E03.9 Hypothyroidism, unspecified; K21.9 Gastro-esophageal reflux disease without esophagitis; F32.9 Major depressive disorder, single episode, unspecified; F41.9 Anxiety disorder, unspecified; Z99.81 Dependence on supplemental oxygen; Z79.01 Long term (current) use of anticoagulants; Z79.890 Hormone replacement therapy; Z79.899 Other long term (current) drug therapy; Z87.891 Personal history of nicotine dependence
CPT/HCPCS: 36415; 71275; 80048; 80053; 82306; 83605; 83970; 84100; 84484; 85025; 85610; 85730; 87040; 87070; 87205; 87449; 87635; 93005; 94640; 97110; 97116; 97162; 97166; 97530; 97535; 99251; 99285; G2023; J7030; J7050; Q9967; A4216; G0463; J0696; U0003

== ENCOUNTER → 2020-04-01 15:02 | Outpatient (CLI) | payer MEDICARE, SELFPAY ==
[2020-03-02 02:26] VITALS: BMI 22.0
--- NOTE | 2020-04-01 15:10 | RAD_ITS ---
STUDY: X-RAY CHEST REASON FOR EXAM: Female, 79 years old. chronic cough, pneumonia, hemoptysis, patient on 02 at home TECHNIQUE: PA and lateral views of the chest. COMPARISON: August 26, 2018. FINDINGS: Cardiomegaly. Pulmonary vascularity unremarkable. Aorta calcified. Pulmonary fibrosis/COPD. No new focal patchy airspace opacities. Bilateral costophrenic angle blunting without significant effusions. Upper abdomen unremarkable. Osseous structures demineralized with degenerative findings. No pneumothorax. RAD/Chest PA and Lateral IMPRESSION: No new focal patchy airspace opacities or effusions COPD/pulmonary fibrosis Bilateral costophrenic angle blunting without significant effusions Cardiomegaly Electronically Signed: Indra Mcclain DO at 11:12 EDT Tel , Service support ,
== END ==
PROVIDERS: PCP Family Medicine; Referring Provider Internal Medicine Pulmonary Disease; Visit Provider Internal Medicine Pulmonary Disease
DX: J18.9 Pneumonia, unspecified organism (principal); R04.2 Hemoptysis
CPT/HCPCS: 71046

== ENCOUNTER 2020-05-14 20:43 | Emergency (ER) | payer MEDICARE, OTHER, SELFPAY ==
[2020-03-02 02:26] VITALS: BMI 22.0
[2020-05-14 20:43] VITALS: BP 152/99; PULSE 98; RESP 18; TEMP 37.1; O2SAT 100; BMI 46.2
--- NOTE | 2020-05-14 21:23 | CT_ITS ---
STUDY: CT ABDOMEN AND PELVIS WITHOUT CONTRAST REASON FOR EXAM: Female, 79 years old. SHINGLES RT ABDOMEN. Prior cholecystectomy. Hx of HTN, afib, COPD and emphysema RADIATION DOSAGE (If Supplied By Facility): CTDIvol = ( 7.32 ) mGy, DLP = ( 351.20 ) mGycm TECHNIQUE: Transaxial images were obtained from the dome of the diaphragm to the symphysis pubis without oral contrast, and without intravenous contrast. Sagittal and coronal images were reconstructed. Individualized dose optimization techniques were used for this CT. COMPARISON: 07/12/2017, 03/01/2020. FINDINGS: There are chronic interstitial fibrotic changes of the lung bases. Focal pulmonary nodularity seen in both lung bases, grossly stable. Normal liver, with stable 2.7 cm cyst at the dome of the liver. There are surgical clips in the gallbladder fossa consistent with a prior cholecystectomy. Normal spleen. Normal pancreas. Normal bilateral adrenal glands. Normal right kidney. Normal left kidney. Evaluation of the GI tract is limited by absence of oral contrast. Cannot exclude stomach wall thickening. No dilated loops of bowel or evidence for obstruction. Cannot exclude segmental thickening of the valdez of the small or large bowel. Cannot exclude enteritis or colitis. Moderate to marked diffuse fecal retention. Appendix is not definitely seen. There is diffuse atherosclerotic calcification of the abdominal aorta with elongation and tortuosity, but without a demonstrated aneurysm. Normal inferior vena cava. Normal retroperitoneum. Normal urinary bladder. There is absence of the uterus consistent with a prior hysterectomy. Normal abdominal wall. There are diffuse degenerative changes of the visualized lumbar spine. There are partial compression fractures of T11 and L1 of indeterminate age. CT/Abdomen/Pelvis without Cont IMPRESSION: Moderate to marked fecal retention. No gross acute abnormalities in the abdomen and pelvis. Electronically Signed: Glen Carrizales MD at 22:35 EDT , Service support ,
--- NOTE | 2020-05-14 21:24 | ED.DCSUM_ITS ---
History of Present Illness Chief Complaint: Abd Pain Narrative: Patient presents with abdominal pain that is now mostly gone, she had an episode of right-sided abdominal pain that was sharp and stabbing and aching and seems to have resolved upon ED arrival. She lives with her and she is developing dementia, per her she has had worsening weakness over the past few weeks as well as decreased in appetite. She has COPD is on 6 L of oxygen has not had any respiratory symptoms that are new. No noted fever or chills patient denies constipation. She denies any chest pain. Past Medical History - Allergies and Home Meds Allergies/Adverse Reactions: Allergies amoxicillin trihydrate [From Augmentin] Allergy (Verified 03/01/20 19:00) Rash gluten Allergy (Verified 03/01/20 19:00) Other potassium clavulanate [From Augmentin] Allergy (Verified 03/01/20 19:00) Rash risperidone [From Risperdal] Adverse Reaction (Severe, Verified 03/01/20 19:00) Hallucinations esomeprazole magnesium [From Nexium] Adverse Reaction (Verified 03/01/20 19:00) Itching furosemide [From Lasix] Adverse Reaction (Verified 03/01/20 19:00) Hives Sulfa (Sulfonamide Antibiotics) Adverse Reaction (Verified 03/01/20 19:00) CONFUSION sulfamethoxazole [From Bactrim] Adverse Reaction (Verified 03/01/20 19:00) CONFUSION trimethoprim [From Bactrim] Adverse Reaction (Verified 03/01/20 19:00) CONFUSION Primary Care Physician: Alexey Herman MD [Primary Care Provider] - 3-5 Days Past Medical History: - - Hypertension, dementia, COPD Surgical History: noncontributory Smoking Status: Former smoker - Family History Maternal Family History: Family History (Last Reviewed 03/02/20 @ 04:[address] Kamlesh Choi MD) Brother Cancer Sister Cancer Sister COPD (chronic obstructive pulmonary disease) Family History: Reports: No pertinent history Paternal Family History: Family History (Last Reviewed 03/02/20 @ 04:[address] Kamlesh Choi MD) Brother Cancer Sister Cancer Sister COPD (chronic obstructive pulmonary disease) Family History: Reports: No pertinent history Review of Systems ROS: Unable to Obtain - Secondary to dementia, although she can answer some qu estions as below. General: Denies: Chills, Fever ENT: Denies: Sore throat Cardiovascular: Denies: Chest pain Respiratory: Reports: - - Chronic dyspnea, no new changes no productive cough. Gastrointestinal: Reports: Abdominal pain Musculoskeletal: Denies: Extremity Pain Neurological: Denies: Weakness Psych: Denies: Depression Hematologic: Denies: Easy bruising Physical Exam Vital Signs/Narrative: Vital Signs Temp Pulse Resp BP Pulse Ox 05/14/20 20:43 98.8 F 98 18 152/99 H 100 General: - - Patient appears chronically ill, she is on her home oxygen however she does not appear in acute distress. Head: Normocephalic, Atraumatic ENT: - - Slightly dry mucous membranes Neck: Supple Cardiovascular: Regular rate, Regular rhythm Respiratory: - - Coarse and diminished breath sounds bilaterally but she is not in any respiratory distress. Abdomen: Soft, Nontender, Nondistended, Normal bowel sounds, No masses Back: Nontender, Normal Inspection Extremities: Nontender, No edema Skin: Normal color Neurological: Alert, - - Oriented to person and place. Diagnostic/Tx/Re-eval - Medical Decision Making Patient has an unremarkable work-up, she does have stool impaction I did a rectal exam and I cannot palpate any stool therefore I will treat her medically with MiraLAX for home. I will give her first dose here otherwise she can be discharged in stable condition. Anything changes today are to return. is at home with her and watches her most of the time and he tells me he thinks she is safe at home. ED Disposition - Plan for ED Patient: Disposition: Home or Assisted Living Diagnosis: Constipation Instructions: ED Constipation Prescriptions: Polyethylene Glycol 3350 [Miralax] 17 gm PO DAILY #5 packet Transmission Status: Received by [id number] Referrals: Alexey Herman MD [Primary Care Provider] - 3-5 Days
[2020-05-14 21:47] LABS: Absolute Lymphocyte Count 0.69 X10^3/uL (0.83-4.51); Absolute Neutrophil Count 5.5 X10^3/uL (2.0-7.7); Basophil# 0.02 X10^3/uL; Basophil% 0.3 % (0-1); Eosinophil# 0.12 X10^3/uL; Eosinophils% 1.8 % (0-5); Hematocrit 39.8 % (37-47); Lymphocyte # 0.69 X10^3/ul (4.0); Lymphocyte % 10.1 % (19-41); Mean Corp Hgb Conc 32.7 g/dL (32-36); Mean Corpuscular Hgb 31.8 pg (27.0-32.0); Mean Corpuscular Volume 97.3 fL (81-99); Mean Platelet Vol. 10.2 fl (6.2-12.0); Monocyte# 0.51 X10^3/uL; Monocyte% 7.5 % (0-10); NRBC Flagged by Analyzer 0 % (0-5); Neutrophil # 5.47 X10^3/uL (2.7-7.7); Platelet Count 174 K/mm3 (150-450); RBC Distribution Width SD 46.4 fl (35.1-43.9); Red Blood Count 4.09 M/mm3 (4.2-5.4); White Blood Count 6.8 K/mm3 (4.4-11.0)
[2020-05-14 22:01] LABS: ALB/GLOB Ratio 1.1 RATIO (0.9-2.4); AST(SGOT) 12 U/L (15-37); Alanine Aminotransfer ALT/SGPT 15 U/L (13-56); Albumin, Serum 3.3 g/dL (3.2-5.0); Alkaline Phosphatase 75 U/L (45-117); Anion Gap 4 (5-15); BUN 9 mg/dL (7-18); BUN/Creat Ratio 13.9 RATIO (10-20); Calcium,Total 10.5 mg/dL (8.5-10.1); Chloride 97 mmol/L (98-107); Creatinine, Serum 0.65 mg/dL (0.55-1.02); EST Glomerular Filtration Rate 94 mL/min (>60); Est Glom Filt Rate - Afr Amer 114 mL/min (>60); Globulin 2.9 g/dL (2.2-4.2); Glucose 108 mg/dL (74-106); Lipase 64 U/L (73-393); Potassium 2.9 mmol/L (3.5-5.1); Protein, Total 6.2 g/dL (6.4-8.2); Sodium Level 141 mmol/L (136-145)
[2020-05-14] MEDS: Polyethylene Glycol 3350 17 GM PACKET PO (23:30)
[2020-05-14 23:42] VITALS: BP 150/97; PULSE 86; RESP 20; O2SAT 98
== END 2020-05-14 23:42 | disposition home or self-care (01) ==
PROVIDERS: Emergency Provider Emergency Medicine; PCP Family Medicine
DX: K59.00 Constipation, unspecified (principal); F03.90 Unspecified dementia, unspecified severity, without behavioral disturbance, psychotic disturbance, mood disturbance, and anxiety; I10 Essential (primary) hypertension; J44.9 Chronic obstructive pulmonary disease, unspecified; Z87.891 Personal history of nicotine dependence; Z79.899 Other long term (current) drug therapy; Z99.81 Dependence on supplemental oxygen
CPT/HCPCS: 74176; 80053; 83690; 85025; 96361; 96374; 99284; J7040; A4216; J2405

== ENCOUNTER → 2020-05-31 13:12 | Outpatient (CLI) | payer MEDICARE, OTHER, SELFPAY ==
[2020-05-23 12:58] VITALS: BMI 20.5
--- NOTE | 2020-05-31 13:13 | ECHOD_ITS ---
Version 2 Reason For Study: AFib/Flutter Procedure This was a 2D Doppler, Color Flow transthoracic echocardiogram. Exam performed in department. Left Ventricle Normal LV size. Left ventricular systolic function is normal. The estimated ejection fraction is 55 %. Stage 3 diastolic dysfunction. No regional wall motion abnormalities noted. Right Ventricle Normal RV size. Normal systolic function. Atria Normal left atrium. Normal right atrium. Mitral Valve Normal mitral valve. Tricuspid Valve Normal tricuspid valve. Mild to moderate (1-2+) tricuspid valve insufficiency. Pulmonary artery systolic pressure is 45 mmHg. Mild pulmonary hypertension. Great Vessels Normal aortic root. The pulmonary artery is normal size. Normal inferior vena cava. Pericardium/Pleural No pericardial effusion. MMode/2D Measurements & Calculations LVIDd: 3.8 cm IVSd: 1.2 cm Ao root diam: 3.4 cm LVIDs: 3.1 cm LVPWd: 1.1 cm LA dimension: 3.6 cm RVDd: 3.2 cm FS: 18.5 % LAV(MOD-bp): 52.9 ml LA A4 area: 17.2 cm2 RA A4 area: 19.1 cm2 LAV(MOD-bp) Indexed: 32.1 ml/m2 LAV(MOD-sp2): 59.6 ml LAV(MOD-sp4): 44.9 ml Time Measurements MV dec time: 0.25 sec Doppler Measurements & Calculations MV E max aminata: 74.0 cm/sec MV V2 max: 78.1 cm/sec MV P1/2t max aminata: 77.2 cm/sec MV A max aminata: 28.5 cm/sec MV max P.4 mmHg MV P1/2t: 73.2 msec MV E/A: 2.6 MV V2 mean: 35.9 cm/sec MV mean P.68 mmHg MV dec slope: 308.9 cm/sec2 MV V2 VTI: 17.1 cm MVA(P1/2t): 3.0 cm2 LV V1 max: 68.7 cm/sec PA V2 max: 93.6 cm/sec TR max aminata: 322.6 cm/sec LV V1 max P.9 mmHg TR max P.6 mmHg Interpretation Summary Normal LV size. Left ventricular systolic function is normal. The estimated ejection fraction is 55 %. Stage 3 diastolic dysfunction. Pulmonary artery systolic pressure is 45 mmHg. Mild pulmonary hypertension. Ordering Physician: Aj Gray Referring Physician: Aj Gray Performed By: Az Mauricio RCS
== END ==
PROVIDERS: PCP Family Medicine; Referring Provider Internal Medicine Cardiovascular Disease; Visit Provider Internal Medicine Cardiovascular Disease
DX: I48.19 Other persistent atrial fibrillation (principal)
CPT/HCPCS: 93306

== ENCOUNTER 2020-06-29 20:38 | Inpatient (IN) | payer MEDICARE, OTHER, SELFPAY ==
[2020-05-23 12:58] VITALS: BMI 20.5
--- NOTE | 2020-06-29 20:34 | EKG12_ITS ---
Test Reason : Blood Pressure : / mmHG Vent. Rate : 143 BPM Atrial Rate : 241 BPM P-R Int : 000 ms QRS Dur : 078 ms QT Int : 282 ms P-R-T Axes : 000 096 264 degrees QTc Int : 435 ms Atrial fibrillation Low voltage QRS Non-specific ST & T wave changes Abnormal ECG When compared with ECG of 29-JUN-2020 22:24, MANUAL COMPARISON REQUIRED, DATA IS UNCONFIRMED Confirmed by AXEL MADRID, ED ([id number]), sound editor JOO CORADO ([id number]) on 07/03/2020 11:29:34 AM Referred By: GULSHAN Confirmed By:VIVI REYNA MD
--- NOTE | 2020-06-29 20:34 | RAD_ITS ---
STUDY: X-RAY CHEST REASON FOR EXAM: Female, 79 years old. fall TECHNIQUE: Single AP portable view of the chest. COMPARISON: Prior study of 04/01/2020 FINDINGS: There are diffuse fibrotic/emphysematous changes of the lungs. There is no demonstrated pleural abnormality. Normal size heart. Normal mediastinum and chris. Normal visualized pulmonary arteries. There are calcified plaques of the aortic arch. Normal visualized thoracic spine. Normal visualized ribs, clavicles, and shoulders. There is no demonstrated abnormality of the visualized soft tissue structures of the upper abdomen. RAD/Chest 1 View (Portable) IMPRESSION: Diffuse fibrotic/emphysematous changes of the lungs appearing stable in the interval. There is no evidence of hemo or pneumothorax or pulmonary contusion. Electronically Signed: Miles Bishop MD at 22:27 EDT , Service support ,
--- NOTE | 2020-06-29 21:14 | RAD_ITS ---
STUDY: X-RAY - PELVIS AND RIGHT HIP REASON FOR EXAM: Female, 79 years old. fall TECHNIQUE: 3 views of the pelvis and hip. COMPARISON: None. FINDINGS: There is a non-specific bowel gas pattern. Normal visualized soft tissue structures. Normal bilateral iliac wings, sacroiliac joints and visualized sacrum. There is a slightly displaced fracture of the medial right superior pubic ramus. There is also a suspected nondisplaced fracture of the mid inferior right pubic ramus. Normal pubic symphysis. Normal bilateral ischial tuberosities. There is a comminuted intertrochanteric fracture of the right femur. The right femoral head remains in its normal articulation in the acetabulum. RAD/HIP, UNI W/ Pelvis 2-3 Views IMPRESSION: 1. Comminuted intertrochanteric fracture of the right femur. 2. Slightly displaced fracture of the medial right superior pubic ramus, and also suspected nondisplaced fracture of the mid inferior right pubic ramus. Electronically Signed: Miles Bishop MD at 22:33 EDT , Service support ,
[2020-06-29 21:45] VITALS: BP 130/69; PULSE 110; RESP 16; TEMP 37.6; O2SAT 95
--- NOTE | 2020-06-29 21:48 | PCM.HP.STD ---
Problem List (1) Closed right hip fracture Status: Acute Qualifiers: Encounter type: initial encounter Qualified Code(s): S72.001A - Fracture of unspecified part of neck of right femur, initial encounter for closed fracture (2) Hypokalemia Status: Acute (3) Pulmonary fibrosis Status: Chronic (4) Chronic respiratory failure with hypoxia Status: Chronic (5) Chronic anemia Status: Chronic (6) Hypothyroidism Status: Chronic Qualifiers: Hypothyroidism type: unspecified Qualified Code(s): E03.9 - Hypothyroidism, unspecified (7) GERD (gastroesophageal reflux disease) Status: Chronic Qualifiers: Esophagitis presence: esophagitis presence not specified Qualified Code(s): K21.9 - Gastro-esophageal reflux disease without esophagitis (8) RLS (restless legs syndrome) Status: Chronic (9) Anxiety and depression Status: Chronic (10) Secondary pulmonary arterial hypertension Status: Chronic (11) Left ventricular diastolic dysfunction Status: Chronic (12) Persistent atrial fibrillation Status: Chronic (13) Essential (primary) hypertension Status: Chronic (14) COPD (chronic obstructive pulmonary disease) Status: Chronic Qualifiers: COPD type: unspecified COPD Qualified Code(s): J44.9 - Chronic obstructive pulmonary disease, unspecified History of Present Illness Date of Admission: 06/29/20 Chief Complaint: Fall, R hip fracture The patient is a 79 y/o F w/ PMHx: Chronic COPD w/ Chronic Hypoxic Respiratory Failure (4L NC), Chronic pulmonary fibrosis following w/ Dr. King, Persistent AF, Anxiety and Depression, HTN, Hypothyroidism, GERD, RLS who presents to the [facility] as direct admission from [facility] ED on 06/29/20 with history of unfortunate mechanical fall while walking in her kitchen. She fell onto her right hip with immediately pain, deformity and debility following. She was transitioned to the ED for evaluation and work-up included: VS: BP 144/77, HR 100, RR 18, T 36.6, O2 92% on 4L CBC: WBC 9.1, Hgb 12, Plt 200 without marked shift BMP: Na 140, K 2.9, BUN/Cr 9/0.63, glucose 118 UA: Unremarkable aside 15 ketones Tele: SR on telemetry per ED physician, no EKG performed R knee plain film: unremarkable R hip/pelvis: Acute comminuted intertrochanteric femur fracture with varus angulation Medication administered: 2 mg IV morphine, 40 mEq K-dur x 1 Patient was admitted last 03/01/20 with worsening dyspnea and associated hemoptysis with evaluation and treatment for COPD exacerbation, hold on her eliquis therapy, treatment of her CAP w/ at that time CTPA with no evidence of pulmonary embolism, aortic aneurysm or aortic dissection with evidence of severe pulmonary emphysema with a dense consolidation with a left lower lobe consistent with pneumonia as well as fibrotic changes in the right upper lobe. Patient has not resumed her anticoagulation therapy. She had recent cardiology visit 05/23/[address] Gray and was placed on HCTZ at that time, continued discontinuation of her eliquis and planned ECHO which was obtained. Patient requested contact noted to be her Daughter who was reached and plan of care discussed. Past Medical History Past Medical History (Chronic Problems): Chronic Problems (Last Updated 05/31/20 @ 16:56 by Alexa Hernandez) Pulmonary fibrosis (Chronic) Chronic respiratory failure with hypoxia (Chronic) Chronic anemia (Chronic) Hypothyroidism (Chronic) GERD (gastroesophageal reflux disease) (Chronic) RLS (restless legs syndrome) (Chronic) Anxiety and depression (Chronic) Secondary pulmonary arterial hypertension (Chronic) Left ventricular diastolic dysfunction (Chronic) Persistent atrial fibrillation (Chronic) Essential (primary) hypertension (Chronic) COPD (chronic obstructive pulmonary disease) (Chronic) Medical History: Medical History (Last Updated 05/31/20 @ 16:56 by Alexa Hernandez) Secondary pulmonary arterial hypertension (Chronic) I27.21 Left ventricular diastolic dysfunction (Chronic) I51.9 Persistent atrial fibrillation (Chronic) I48.19 Hemoptysis (Resolved) R04.2 Essential (primary) hypertension (Chronic) I10 COPD (chronic obstructive pulmonary disease) (Chronic) J44.9 Anxiety F41.9 Anxiety and depression F41.9, F32.9 Epistaxis R04.0 GERD (gastroesophageal reflux disease) K21.9 Hypokalemia E87.6 Hypomagnesemia E83.42 Hypothyroidism E03.9 Insomnia G47.00 Iron deficiency E61.1 Kyphosis M40.209 Normochromic anemia D64.9 Osteoporosis M81.0 Pulmonary fibrosis J84.10 RLS (restless legs syndrome) G25.81 Vertebral compression fracture M48.50XA Chronic respiratory failure with hypoxia (Resolved) J96.11 Metabolic encephalopathy (Resolved) G93.41 Paroxysmal atrial fibrillation (Inactive) I48.0 Allergies amoxicillin trihydrate [From Augmentin] Allergy (Verified 05/23/20 12:59) Rash gluten Allergy (Verified 05/23/20 12:59) Other potassium clavulanate [From Augmentin] Allergy (Verified 05/23/20 12:59) Rash risperidone [From Risperdal] Adverse Reaction (Severe, Verified 05/23/20 12:59) Hallucinations esomeprazole magnesium [From Nexium] Adverse Reaction (Verified 05/23/20 12:59) Itching furosemide [From Lasix] Adverse Reaction (Verified 05/23/20 12:59) Hives Sulfa (Sulfonamide Antibiotics) Adverse Reaction (Verified 05/23/20 12:59) CONFUSION sulfamethoxazole [From Bactrim] Adverse Reaction (Verified 05/23/20 12:59) CONFUSION trimethoprim [From Bactrim] Adverse Reaction (Verified 05/23/20 12:59) CONFUSION Home Medications: Ambulatory Orders Medication Instructions Recorded Levothyroxine [Synthroid] 50 mcg PO DAILY 07/12/17 busPIRone [Buspar] 5 mg PO BID 07/23/17 Sertraline HCl [Zoloft] 50 mg PO DAILY 09/13/17 Famotidine [Pepcid] 20 mg PO BID #60 tab 09/24/17 roflumilast 500 mcg tablet 500 mcg PO QDAY 12/03/17 Iron Polysaccharide Complex 150 mg PO DAILYCM 01/26/18 [Ferrex 150] Magnesium Oxide [Mag-Ox 400] 400 mg PO DAILY@0800 02/04/18 Montelukast [Singulair] 10 mg PO DAILY@1700 #30 tab 02/17/18 azithromycin 250 mg tablet 250 mg PO DAILY 12/06/18 umeclidinium 62.5 mcg/actuation 1 inh INHALATION DAILY 10/25/19 blister powder for inhalation Fluticasone/Vilanterol [Breo 1 ea IH DAILY 03/01/20 Ellipta 200-25 Mcg INH] Albuterol Aerosols [Ventolin 2.5 mg INHALATION Q2H PRN PRN #1 03/04/20 Aerosols] box Cefdinir [Omnicef [equiv]] 300 mg PO Q12H #10 cap 03/04/20 Guaifenesin [Mucinex] 1,200 mg PO BID #20 tab 03/04/20 diltiazem HCl 240 mg 240 mg PO QDAY #90 cap 03/21/20 capsule,extended release 24 hr Polyethylene Glycol 3350 [Miralax] 17 gm PO DAILY #5 packet 05/14/20 hydrochlorothiazide 25 mg tablet 25 mg PO DAILY #90 tab 05/23/20 Surgical History: Surgical History (Last Reviewed 05/23/20 @ 13:[address] 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 Aj Gray MD) Brother Cancer Sister Cancer Sister COPD (chronic obstructive pulmonary disease) History Items: - - Patient with no reported maternal or paternal family history of heart disease, diabetes or cancer. Paternal Family History: Family History (Last Reviewed 05/23/20 @ 13:[address] Aj Gray MD) Brother Cancer Sister Cancer Sister COPD (chronic obstructive pulmonary disease) History Items: - - Patient with no reported maternal or paternal family history of heart disease, diabetes or cancer. Review of Systems Constitutional: Reports: Malaise, Weakness, Fatigue. Denies: Anorexia, Chills, Fever, Weight Change HEENT: Denies: Head Aches, Sinus Congestion, Sinus Drainage Cardiovascular: Denies: Chest Pain, Chest Pressure, Chest Tightness, Palpitations Respiratory: Reports: Shortness of breath upon exertion. Denies: Cough, Shortness of Breath, Shortness of breath at rest, Sputum production, Wheezing Gastrointestinal: Reports: Diarrhea. Denies: Abdominal Pain, Nausea, Vomiting Genitourinary: Denies: Dysuria Musculoskeletal: Reports: Joint Pain, Joint stiffness, Joint swelling, Joint Tenderness, Leg Pain Skin: Denies: Rash, Wounds Neurological: Denies: Numbness, Tingling, Focal weakness Psychiatric: Reports: Anxiety, Depression. Denies: Homicidal Ideations, Suicidal Ideations Hematologic/ Lymphatic: Reports: Anemia, Easy Bleeding. Denies: Easy Bruising VTE Information - Inpt Only VTE Present on Admission: No VTE Mechan Device Prophylaxis: SCD's VTE Pharm Prophylaxis ordered?: No Reason prophylaxis not ordered:: Medical Contraindication Patient Problems: Active and Suspected Problems (Last Updated 05/31/20 @ 16:56 by Alexa Hernandez) Closed right hip fracture (Acute) Hypokalemia (Acute) Subjective: Patient laying in the PCU bed, mildly fatigued otherwise no acute distress, notes pain currently controlled. Objective: Physical Examination: General: awake, alert, oriented x [address], self, recent events, cooperative, laying in the PCU bed, currently notes pain controlled. Skin: normal color, turgor, no icterus, cyanosis. HEENT: AT/NC, EOMI, PERRLA, mildly dry MM, no carotid bruits, no marked JVD noted. Lungs: Diminished breath sounds, greater bases, appropriate current moderate effort, no obvious significant rales, rhonchi or wheezing, mild crackles bases likely secondary to pulmonary fibrotic change. Heart: Regular rate and rhythm; no gallop, rub audible. Abdomen: soft, NTTP, ND, normal BS, no HSM. Extremities: no cyanosis, clubbing, or edema. Neurological: patient awake, alert, oriented as noted; cognitive function appears baseline intact; pupils equally reactive to light and accomodation; cranial nerves II-XII grossly normal, moving all 4 extremities except expected limitation right lower extremity given recent hip fracture with bilateral lower extremity pulses intact, sensation intact, strength accordingly severely global decreased. Psychiatric: affect appears mildly fatigued otherwise normal, no acute evidence of depressive or anxiety feelings. - Physical Exam Vitals/I&O's: Body Mass Index (BMI) 20.5 Current Medications Acetaminophen (Tylenol) 650 mg PO Q6H PRN PRN PRN Reason: Pain Score 1-10/Temp > 100.7 F Al Hydroxide/Mg Hydroxide (Mylanta Ii) 30 ml PO Q6H PRN PRN PRN Reason: Gastric Burning Albuterol Sulfate (Ventolin Aerosols) 2.5 mg INHALATION Q2H PRN PRN PRN Reason: Dyspnea, wheezing Albuterol/Ipratropium (Duoneb) 3 ml INHALATION Q6HWA.RT STEVE Budesonide (Pulmicort Aerosol) 0.5 mg INHALATION Q12H.RT STEVE Buspirone HCl (Buspar) 5 mg PO BID STEVE Diltiazem HCl (Cardizem Cd) 240 mg PO DAILY STEVE Famotidine (Pepcid) 20 mg PO BID STEVE Guaifenesin (Robitussin) 20 ml PO Q4H PRN PRN PRN Reason: COUGH Levothyroxine Sodium (Synthroid) 50 mcg PO DAILY@0600 [facility] Magnesium Chloride (Mag64) 128 mg PO DAILY [facility] Melatonin (Melatonin) 3 mg PO QHS PRN PRN PRN Reason: INSOMNIA Montelukast Sodium (Singulair) 10 mg PO DAILY@1700 [facility] Morphine Sulfate () 2 mg IV Q3H PRN PRN PRN Reason: Pain Score 6-10 Nitroglycerin (Nitrostat) 0.4 mg SUBLINGUAL Q5M PRN PRN Reason: CARDIAC/CHEST PAIN Non-Formulary Medication (Roflumilast [Daliresp]) 500 mcg PO QDAY [facility] Ondansetron HCl (Zofran) 4 mg IV Q8H PRN PRN PRN Reason: NAUSEA/VOMITING Oxycodone HCl (Oxyir) 5 mg PO Q4H PRN PRN PRN Reason: Pain Score 4-5 Polysaccharide Iron Complex (Ferrex 150) 150 mg PO DAILYCM [facility] Prochlorperazine Edisylate (Compazine Iv) 5 mg IV Q4H PRN PRN PRN Reason: Breakthrough Nausea/Vomiting Sertraline HCl (Zoloft) 50 mg PO DAILY [facility] Throat Lozenges (Cepacol Sore Throat Lozenge) 1 lozenge MUCOUS MEM Q2H PRN PRN PRN Reason: SORE THROAT Assessment/Plan All Active Problems (Last Updated 05/31/20 @ 16:56 by Alexa Hernandez) Closed right hip fracture (Acute) Hypokalemia (Acute) Hemoptysis (Resolved) Acute respiratory failure with hypoxia and hypercapnia (Resolved) Ankle edema (Resolved) Atrial fibrillation with rapid ventricular response (Resolved) CAP (community acquired pneumonia) (Resolved) COPD with acute exacerbation (Resolved) Chronic respiratory failure with hypoxia (Resolved) Healthcare-associated pneumonia (Resolved) History of malnutrition (Resolved) Human metapneumovirus (hMPV) pneumonia (Resolved) Leucocytosis (Resolved) Metabolic alkalosis (Resolved) Metabolic encephalopathy (Resolved) Pneumonia (Resolved) Streptococcal pneumonia (Resolved) Thrush (Resolved) The patient is a 79 y/o F w/ PMHx: Chronic COPD w/ Chronic Hypoxic Respiratory Failure (4L NC), Chronic pulmonary fibrosis following w/ Dr. King, Persistent AF, Anxiety and Depression, HTN, Hypothyroidism, GERD, RLS who presents to the [facility] as direct admission from [facility] ED on 06/29/20 with history of unfortunate mechanical fall while walking in her kitchen. She fell onto her right hip with immediately pain, deformity and debility following. She was transitioned to the ED for evaluation and work-up included: 1. General debility, R hip pain s/p mechanical fall w/ Acute comminuted intertrochanteric femur fracture with varus angulation: Plain film noting Acute comminuted intertrochanteric femur fracture with varus angulation and R knee plain film unremarkable. Orthopedic surgery consulted from ED outside hospital and agreed to transiiton to [facility]. Will admit to MS, maintain NPO, continue gentle IVFs, obtain Mag level, UA unremarkable from outside facility therefore defer UCx, continue hennessy placement, monitor I/Os, frequent positioning, fall precautions, type and screen. Pain, anti-emetic regimen. PT/OT following operative intervention. CM consulted for discharge planning. NSQIP performed and notable for above average risk across all outcome assessments including serious complication, pneumonia, cardiac complication. Patient geriatric outcome with below average risk for postop delirium and functional decline. Given patient's significant underlying disease discussed case with anesthesiology, Dr. Winkler who recommended pulmonary medicine and cardiology assessment, chest x-ray and in house COVID testing prior to intervention. 2. Hypokalemia: Admission K+ 2.9, magnesium level requested, plan repeat level this evening with further supplementation as needed, outside ED supplementation given as noted, also repeat level in AM. Likely associated with recent initiation of HCTZ regimen and diarrhea which started with the initiation of this medication. Will hold HCTZ. Will obtain stool culture/cdiff as patient has been on recent antibiotic therapy also, but given onset with start of HCTZ, may be primary culprit. 3. Chronic COPD with Chronic Hypoxic Respiratory Failure, Pulmonary Fibrosis with Pulm HTN: We will continue patient Roflumilast, Singulair, umeclidinium, breo with PRN albuterol, encouraged HOB, IS with planned consultation with Pulmonary medicine per Anesthesiology request prior to transition to OR. Dr. King is aware of the plan and will evaluate her in the AM. 4. Persistent atrial fibrillation: Noted to be sinus rhythm on telemetry at outside facility, will obtain EKG as not previously performed, will continue patient diltiazem regimen. Currently has remained off of her Eliquis therapy which had been discontinued secondary to associated hemoptysis with pulmonary infection during prior admission. 05/31/20 ECHO w/ normal LV size, normal LV systolic function, EF 55%, stage III diastolic dysfunction, PAS P 45 mmHg with evidence of mild pulmonary hypertension. Cardiology consulted given high risk operative patient per anesthesia recommendation. 5. Anxiety and depression: We will continue patient home BuSpar, sertraline regimen as well as nightly trazodone with hold if necessary given usage concurrently of pain regimen. 6. Chronic normocytic anemia, iron deficiency anemia: We will continue patient home Ferrex regimen, outside ED hemoglobin 12, trend. 7. Hypertension: We will continue patient home diltiazem regimen with hold as needed. Holding HCTZ given noted above. 8. Hypothyroidism: We will continue patient home levothyroxine regimen, TSH and free T4 level pending. 9. GERD: We will continue patient home famotidine regimen. 10. Restless leg syndrome: Not on regimen, if more severe especially given acute presentation may consider low-dose Mirapex as needed. 11. DVT prophylaxis: SCDs as tolerated, hold chemoprophylaxis given planned OR pending orthopedic surgery evaluation. 12. CODE status: DNR-CCA, no intubation. is HCPOA. Inpatient E&M: 29272 Init Hosp L3
[2020-06-29 21:54] VITALS: BMI 18.4
[2020-06-29 22:00] VITALS: PULSE 110; RESP 16; O2SAT 95
[2020-06-29 22:25] VITALS: RESP 24; O2SAT 98
[2020-06-29 22:39] LABS: International Normalized Ratio 1.2; Prothrombin Time (Protime)PT. 14.2 SECONDS (11.7-14.9)
[2020-06-29] MEDS: Morphine 2 MG/ML Syringe IV (22:42)
[2020-06-29 22:52] LABS: Anion Gap 7 (5-15); BUN 12 mg/dL (7-18); BUN/Creat Ratio 24.1 RATIO (10-20); Calcium,Total 10.1 mg/dL (8.5-10.1); Chloride 100 mmol/L (98-107); EST Glomerular Filtration Rate 127 mL/min (>60); Est Glom Filt Rate - Afr Amer 154 mL/min (>60); Estimated Creatinine Clearance 42.67 ml/min; Glucose 153 mg/dL (74-106); Sodium Level 140 mmol/L (136-145)
--- NOTE | 2020-06-29 23:00 | RAD_ITS ---
HISTORY: Patient just placed in traction for hip fracture. ADDITIONAL HISTORY: None provided. EXAMINATION/TECHNIQUE: XR Femur Min 2 Views Right Number of images including paperwork: 4 COMPARISON: None FINDINGS: BONES: Comminuted, intertrochanteric right proximal femur fracture is noted with superolateral displacement and apex lateral angulation. Right-sided pubic ramus fractures partially visible. Mineralization appears decreased. JOINTS: No subluxation. SOFT TISSUES: No distinct foreign body. RAD/Femur Min 2 Views IMPRESSION: Minimal change in intertrochanteric right proximal femur fracture. at 0509 Reported and signed by: Latonya Barbour MD Electronically Signed: Latonya Barbour MD at 5:09 EDT Tel , Service support ,
[2020-06-29 23:01] LABS: Magnesium 1.7 mg/dL (1.6-2.6); T4 Free Direct 1.25 ng/dL (0.76-1.46); Thyroid Stim Hormone (TSH) 1.23 uIU/mL (0.358-3.74)
[2020-06-29 23:31] VITALS: PULSE 103
[2020-06-30] VITALS (33 sets, daily range): BP systolic 96–141; BP diastolic 48–76; PULSE 60–167; RESP 12–22; TEMP 36.7–36.9; O2SAT 94–100; BMI 18.4
--- NOTE | 2020-06-30 00:29 | CPS ---
Patient's home BiPAP machine setup at bedside. Water chamber filled and 4L O2 bled in per patients home regimen. Mask was placed on with comfort. Call light within reach and patient understands to let staff know if she has any problems with machine overnight.
[2020-06-30] MEDS: 0.9% Saline Lock 10 ML Syringe IV ×2 (02:04→07:55)
[2020-06-30] MEDS: Ondansetron 4 MG/2 ML Vial IV ×2 (02:04→14:58)
[2020-06-30 05:46] LABS: Absolute Lymphocyte Count 0.45 X10^3/uL (0.83-4.51); Absolute Neutrophil Count 10.8 X10^3/uL (2.0-7.7); Basophil# 0.02 X10^3/uL; Basophil% 0.2 % (0-1); Hematocrit 37.3 % (37-47); Hemoglobin 11.9 g/dL (12.0-15.0); Lymphocyte # 0.45 X10^3/ul (4.0); Lymphocyte % 3.7 % (19-41); Mean Corp Hgb Conc 31.9 g/dL (32-36); Mean Corpuscular Hgb 32.4 pg (27.0-32.0); Mean Corpuscular Volume 101.6 fL (81-99); Mean Platelet Vol. 10.4 fl (6.2-12.0); Monocyte# 0.78 X10^3/uL; Monocyte% 6.4 % (0-10); NRBC Flagged by Analyzer 0 % (0-5); Neutrophil # 10.83 X10^3/uL (2.7-7.7); POSITIVE DIFFERENTIAL YES; Platelet Count 191 K/mm3 (150-450); RBC Distribution Width CV 12.3 % (11.6-14.6); RBC Distribution Width SD 46.3 fl (35.1-43.9); Red Blood Count 3.67 M/mm3 (4.2-5.4); White Blood Count 12.2 K/mm3 (4.4-11.0)
[2020-06-30 05:48] LABS: Differential Indicated SCAN CRITERIA MET
[2020-06-30 06:12] LABS: ALB/GLOB Ratio 1.1 RATIO (0.9-2.4); AST(SGOT) 19 U/L (15-37); Alanine Aminotransfer ALT/SGPT 30 U/L (13-56); Albumin, Serum 3.4 g/dL (3.2-5.0); Alkaline Phosphatase 64 U/L (45-117); Anion Gap 6 (5-15); BUN 16 mg/dL (7-18); BUN/Creat Ratio 18.7 RATIO (10-20); Calcium,Total 10.3 mg/dL (8.5-10.1); Chloride 99 mmol/L (98-107); Creatinine, Serum 0.86 mg/dL (0.55-1.02); EST Glomerular Filtration Rate 68 mL/min (>60); Est Glom Filt Rate - Afr Amer 82 mL/min (>60); Estimated Creatinine Clearance 49.62 ml/min; Glucose 153 mg/dL (74-106); Potassium 3.9 mmol/L (3.5-5.1); Protein, Total 6.4 g/dL (6.4-8.2); Sodium Level 136 mmol/L (136-145)
[2020-06-30] MEDS: Budesonide Respules 0.5 MG/2 ML AMPUL.NEB. INHALATION ×2 (06:53→19:23)
[2020-06-30] MEDS: Ipratropium/Albuterol Sulfate 3 ML AMPUL.NEB INHALATION ×2 (06:53→19:23)
--- NOTE | 2020-06-30 07:39 | PN_ITS ---
Patient Problems: Active and Suspected Problems (Last Updated 05/31/20 @ 16:56 by Alexa Hernandez) Closed right hip fracture (Acute) Hypokalemia (Acute) Non-ST elevation (NSTEMI) myocardial infarction (Acute) Subjective: Patient seen and examined. She was admitted as a transfer from [facility] ED on account of mechanical fall with resultant right hip fracture. Orthopedic surgery on board. Pulmonology and cardiology consulted on account of history of chronic respiratory failure and pulmonary fibrosis as well as a hist ory of ACharla garcia. Patient went into RVR this morning with heart rate being in the 130s and 140s. She is otherwise hemodynamically stable. Chemistry is unremarkable. CBC shows hemoglobin of 11.9 and WBC of 12.2. Vitals/I&O's: Vital Signs Temp Pulse Resp BP Pulse Ox 98.4 F 101 H 18 104/72 100 06/30/20 06:03 06/30/20 06:03 06/30/20 06:03 06/30/20 06:03 06/30/20 06:03 Oxygen Flow Rate (L/min) 4 Oxygen Delivery Method CPAP Weight: 128 lb 8.472 oz Body Mass Index (BMI) 18.4 Intake and Output for Last 24 Hours 06/28/20 06/29/20 06/30/20 23:59 23:59 23:59 Intake Total 344 / 344 Output Total 575 / 575 Balance -231 / -231 General: Alert, Oriented x3, Cooperative, No apparent distress, - - frail HEENT: Atraumatic, PERRLA, EOMI, Normocephalic Oral: Dry Mucosa Neck: Supple, No JVD, Negative Carotid Bruits Lungs: - - decreased breath sounds bibasally,fine bibasilar crackles. On 4L of oxygen by nasal canula Cardiovascular: Normal S1, Normal S2, No murmurs, Tachycardic, - - Afib with RVR Abdomen: Bowel Sounds Present, Soft, Non Tender, Non-Distended, No Hepato- splenomegaly Extremities: No clubbing, No cyanosis, No edema, Capillary Refill Less than 3 Seconds Skin: No rashes, No breakdown Musculoskeletal: No Tenderness to Palpation of Joints or Extremities, - - RLE in brace Lymphatic: No Cervical, Supraclavicular, or Inguinal Adenopathy Neurological: Cranial nerves II-XII grossly intact, Neuro grossly intact, Motor Exam 5/5 strength throughout Psych/Mental Status: Normal Affect, Appropriate, Alert and oriented to time, place, person, mood and affect Laboratory Results 06/29/20 22:00: Magnesium 1.7, TSH 1.23, Free T4 1.25 06/29/20 22:00: Blood Type O POSITIVE, Antibody Screen NEGATIVE 06/29/20 22:00: PT 14.2, INR 1.2, APTT 27.0 06/29/20 22:00: Sodium 140, Potassium 3.0 L, Chloride 100, Carbon Dioxide 33.0 H , Anion Gap 7, BUN 12, Creatinine 0.50 L, Estim Creat Clear Calc 42.67, Est GFR (MDRD) Af Amer 154, Est GFR (MDRD) Non-Af 127, BUN/Creatinine Ratio 24.1 H, Glucose 153 H, Calcium 10.1 06/29/20 22:03: COVID-19 (VERONICA) Not Detected 06/30/20 05:38: WBC 12.2 H, RBC 3.67 L, Hgb 11.9 L, Hct 37.3, MCV 101.6 H, MCH 32.4 H, MCHC 31.9 L, RDW Std Deviation 46.3 H, RDW Coeff of Jeff 12.3, Plt Count 191, MPV 10.4, Immature Gran % (Auto) 0.700, Neut % (Auto) 89.0 H, Lymph % (Auto) 3.7 L, [place] % (Auto) 6.4, Eos % (Auto) 0.0, Baso % (Auto) 0.2, Absolute Neuts (auto) 10.8 H, Absolute Lymphs (auto) 0.45 L, Nucleated RBC % 0, Differential Comment COMMENT 06/30/20 05:38: Sodium 136, Potassium 3.9, Chloride 99, Carbon Dioxide 31.0, Anion Gap 6, BUN 16, Creatinine 0.86, Estim Creat Clear Calc 49.62, Est GFR (MDRD) Af Amer 82, Est GFR (MDRD) Non-Af 68, BUN/Creatinine Ratio 18.7, Glucose 153 H, Calcium 10.3 H, Total Bilirubin 1.20 H, AST 19, ALT 30, Alkaline Phosphatase 64, Total Protein 6.4, Albumin 3.4, Globulin 3.0, Albumin/Globulin Ratio 1.1 Diagnostic Data Chest X-Ray 06/29/20 20:34 IMPRESSION: Diffuse fibrotic/emphysematous changes of the lungs appearing stable in the interval. There is no evidence of hemo or pneumothorax or pulmonary contusion. Electronically Signed: Miles Bishop MD at 22:27 EDT , Service support , Hip/Pelvis X-Ray 06/29/20 21:14 IMPRESSION: 1. Comminuted intertrochanteric fracture of the right femur. 2. Slightly displaced fracture of the medial right superior pubic ramus, and also suspected nondisplaced fracture of the mid inferior right pubic ramus. Electronically Signed: Miles Bishop MD at 22:33 EDT , Service support , Femur X-Ray 06/29/20 23:00 IMPRESSION: Minimal change in intertrochanteric right proximal femur fracture. at 0509 Reported and signed by: Latonya Barbour MD Electronically Signed: Latonya Barbour MD at 5:09 EDT Tel , Service support , Current Medications Acetaminophen (Tylenol) 650 mg PO Q6H PRN PRN PRN Reason: Pain Score 1-10/Temp > 100.7 F Al Hydroxide/Mg Hydroxide (Mylanta Ii) 30 ml PO Q6H PRN PRN PRN Reason: Gastric Burning Albuterol Sulfate (Ventolin Aerosols) 2.5 mg INHALATION Q2H PRN PRN PRN Reason: Dyspnea, wheezing Albuterol/Ipratropium (Duoneb) 3 ml INHALATION Q6HWA.RT STEVE Last Admin: 06/30/20 06:53 Dose: 3 ml Documented by: Budesonide (Pulmicort Aerosol) 0.5 mg INHALATION Q12H.RT STEVE Last Admin: 06/30/20 06:53 Dose: 0.5 mg Documented by: Buspirone HCl (Buspar) 5 mg PO BID [facility] Last Admin: 06/29/20 23:19 Dose: Not Given Documented by: Diltiazem HCl (Cardizem Cd) 240 mg PO DAILY [facility] Famotidine (Pepcid) 20 mg PO BID [facility] Last Admin: 06/29/20 23:19 Dose: Not Given Documented by: Guaifenesin (Robitussin) 20 ml PO Q4H PRN PRN PRN Reason: COUGH Influenza Virus Vaccine Quadrival (Flucelvax /Fluzone ) 0.5 ml IM .ONCE ONE Stop: 06/30/20 10:01 Levothyroxine Sodium (Synthroid) 50 mcg PO DAILY@0600 [facility] Last Admin: 06/30/20 03:10 Dose: Not Given Documented by: Magnesium Chloride (Mag64) 128 mg PO DAILY [facility] Melatonin (Melatonin) 3 mg PO QHS PRN PRN PRN Reason: INSOMNIA Metoprolol Tartrate (Lopressor (Beta Aixa)) 2.5 mg IV X1 ONE Stop: 06/30/20 07:37 Montelukast Sodium (Singulair) 10 mg PO DAILY@1700 [facility] Morphine Sulfate () 2 mg IV Q3H PRN PRN PRN Reason: Pain Score 6-10 Last Admin: 06/29/20 22:42 Dose: 2 mg Documented by: Nitroglycerin (Nitrostat) 0.4 mg SUBLINGUAL Q5M PRN PRN Reason: CARDIAC/CHEST PAIN Non-Formulary Medication (Roflumilast [Daliresp]) 500 mcg PO QDAY [facility] Ondansetron HCl (Zofran) 4 mg IV Q8H PRN PRN PRN Reason: NAUSEA/VOMITING Last Admin: 06/30/20 02:04 Dose: 4 mg Documented by: Oxycodone HCl (Oxyir) 5 mg PO Q4H PRN PRN PRN Reason: Pain Score 4-5 Polysaccharide Iron Complex ([facility]rex 150) [facility] Prochlorperazine Edisylate (Compazine Iv) 5 mg IV Q4H PRN PRN PRN Reason: Breakthrough Nausea/Vomiting Sertraline HCl (Zoloft) 50 mg PO DAILY [facility] Sodium Chloride () 10 - 40 ml IV UD PRN PRN Reason: SALINE FLUSH Last Admin: 06/30/20 02:04 Dose: 20 ml Documented by: Throat Lozenges (Cepacol Sore Throat Lozenge) 1 lozenge MUCOUS MEM Q2H PRN PRN PRN Reason: SORE THROAT STROKE Vital Signs/Narrative: Vital Signs Temp Pulse Resp BP Pulse Ox 06/30/20 06:03 98.4 F 101 H 18 104/72 100 06/30/20 03:45 98.4 F 101 H 16 141/72 H 100 Medical Necessity - Tobacco Use Smoking Status: Former smoker Tobacco Use: Non-smoker Assessment/Plan All Active Problems (Last Updated 05/31/20 @ 16:56 by Alexa Hernandez) Closed right hip fracture (Acute) Hypokalemia (Acute) Non-ST elevation (NSTEMI) myocardial infarction (Acute) Hemoptysis (Resolved) Acute respiratory failure with hypoxia and hypercapnia (Resolved) Ankle edema (Resolved) Atrial fibrillation with rapid ventricular response (Resolved) CAP (community acquired pneumonia) (Resolved) COPD with acute exacerbation (Resolved) Chronic respiratory failure with hypoxia (Resolved) Healthcare-associated pneumonia (Resolved) History of malnutrition (Resolved) Human metapneumovirus (hMPV) pneumonia (Resolved) Leucocytosis (Resolved) Metabolic alkalosis (Resolved) Metabolic encephalopathy (Resolved) Pneumonia (Resolved) Streptococcal pneumonia (Resolved) Thrush (Resolved) # Acute right hip fracture due to mechanical fall * xrays showed acute comminuted intertrochanteric femoral fracture with varus angulation * orthopedics on board- surgery will have to be Wednesday at the earliest, as she is having cardiac cath tomorrow. * PT/OT consulted * on tylenol, oxycodone and IV morphine prn for pain * # Afib with RVR * Patient's hR in the 130s and 140s today. Does have a history of A. fib. * On Cardizem. Eliquis held prior to her even going to the hospital on account of associated hemoptysis with pulmonary infection during previous admissions. * Last echo was on 05/31/2020 which showed EF of 55% with stage III diastolic dysfunction and pulmonary systolic pressure 45 mmHg. * Cardiology consulted. Patient is very high risk for surgery. * per cardiology, patient started on heparin drip, and aspirin. To have cardiac cath tomorrow * continue cardizem drip. # chronic hypoxic respiratory failure due to pulmonary fibrosis and COPD * On Roflumilast and Singulair as well as Breo Ellipta and Umeclidinium. Breathing treatments with bronchodilators. * Pulmonology consulted as patient is high risk for respiratory complications from surgery- Dr King on board. * #Hypokalemia: resolved. Potassium was 3 on admission is now 3.9. #Anxiety and depression: On BuSpar and sertraline. #Hypothyroidism: On Synthroid. #GERD: On famotidine #Hypertension: On Cardizem. Hydrochlorothiazide currently on hold. #Restless leg syndrome: No new medication from home. Consider Mirapex if she become symptomatic DVT prophylaxis: now on heparin drip Code status: DNRCCA * Inpatient E&M: [id number] [facility] L3
--- NOTE | 2020-06-30 07:44 | EKG12_ITS ---
Test Reason : PRE-OP Blood Pressure : / mmHG Vent. Rate : 109 BPM Atrial Rate : 102 BPM P-R Int : 000 ms QRS Dur : 080 ms QT Int : 322 ms P-R-T Axes : 000 075 265 degrees QTc Int : 433 ms Atrial fibrillation with premature ventricular or aberrantly conducted complexes Low voltage QRS ST & T wave abnormality, consider anterior ischemia Abnormal ECG When compared with ECG of 01-MAR-2020 19:32, ST now depressed in Anterior leads T wave inversion now evident in Anterior leads Confirmed by AXEL MADRID, ED ([id number]), image editor JOO CORADO ([id number]) on 07/03/2020 11:30:00 AM Referred By: GULSHAN Confirmed By:VIVI REYNA MD
[2020-06-30] MEDS: Metoprolol Tartrate 5 MG/5 ML Vial 2.5 MG IV (07:54)
[2020-06-30] MEDS: Iron Polysaccharide Complex 150 MG CAPSULE PO (09:27)
[2020-06-30] MEDS: dilTIAZem CD 240 MG Capsule PO (09:27)
[2020-06-30] MEDS: Famotidine 20 MG Tablet PO ×2 (09:27→21:18)
[2020-06-30] MEDS: busPIRone 5 MG Tablet PO ×2 (09:27→21:18)
[2020-06-30] MEDS: Magnesium Chloride 64 MG Delay Rel.Tablet 128 MG PO (09:27)
[2020-06-30] MEDS: Sertraline 50 MG Tablet PO (09:27)
--- NOTE | 2020-06-30 10:12 | PCM.CONS.C ---
Problem List (1) Non-ST elevation (NSTEMI) myocardial infarction Status: Acute Reason for Consult Date of Consultation: 06/30/20 Reason for Consultation: afib/rvr/nstemi/pre op cardiac assessment History of Present Illness: The patient is a 79 year old F [] This patient seen and evaluated today at bed side along with the nursing staff Cardiac consultation requested as she had right hip fracture scheduled to undergo surgery She has underlying atrial fibrillation with rapid ventricular rate and evidence of ST depression was noted on the electrocardiogram with a fast ventricular rate Also she has a mild elevation of cardiac biomarker with a troponin up to 3.0 she does not have any active chest pain and she also denied any prior cardiac history she follows regularly with her primary admin dir Past Medical History Allergies/Adverse Reactions: Allergies amoxicillin trihydrate [From Augmentin] Allergy (Verified 05/23/20 12:59) Rash gluten Allergy (Verified 05/23/20 12:59) Other potassium clavulanate [From Augmentin] Allergy (Verified 05/23/20 12:59) Rash risperidone [From Risperdal] Adverse Reaction (Severe, Verified 05/23/20 12:59) Hallucinations esomeprazole magnesium [From Nexium] Adverse Reaction (Verified 05/23/20 12:59) Itching furosemide [From Lasix] Adverse Reaction (Verified 05/23/20 12:59) Hives Sulfa (Sulfonamide Antibiotics) Adverse Reaction (Verified 05/23/20 12:59) CONFUSION sulfamethoxazole [From Bactrim] Adverse Reaction (Verified 05/23/20 12:59) CONFUSION trimethoprim [From Bactrim] Adverse Reaction (Verified 05/23/20 12:59) CONFUSION Home Medications: Ambulatory Orders Medication Instructions Recorded Levothyroxine [Synthroid] 50 mcg PO DAILY 07/12/17 busPIRone [Buspar] 5 mg PO BID 07/23/17 Sertraline HCl [Zoloft] 50 mg PO DAILY 09/13/17 Famotidine [Pepcid] 20 mg PO BID #60 tab 09/24/17 roflumilast 500 mcg tablet 500 mcg PO QDAY 12/03/17 Iron Polysaccharide Complex 150 mg PO DAILYCM 01/26/18 [Ferrex 150] Magnesium Oxide [Mag-Ox 400] 400 mg PO DAILY@0800 02/04/18 Montelukast [Singulair] 10 mg PO DAILY@1700 #30 tab 02/17/18 azithromycin 250 mg tablet 250 mg PO DAILY 12/06/18 umeclidinium 62.5 mcg/actuation 1 inh INHALATION DAILY 10/25/19 blister powder for inhalation Fluticasone/Vilanterol [Breo 1 ea IH DAILY 03/01/20 Ellipta 200-25 Mcg INH] Albuterol Aerosols [Ventolin 2.5 mg INHALATION Q2H PRN PRN #1 03/04/20 Aerosols] box Cefdinir [Omnicef [equiv]] 300 mg PO Q12H #10 cap 03/04/20 Guaifenesin [Mucinex] 1,200 mg PO BID #20 tab 03/04/20 diltiazem HCl 240 mg 240 mg PO QDAY #90 cap 03/21/20 capsule,extended release 24 hr Polyethylene Glycol 3350 [Miralax] 17 gm PO DAILY #5 packet 05/14/20 hydrochlorothiazide 25 mg tablet 25 mg PO DAILY #90 tab 05/23/20 Past Medical History (Chronic Problems): Chronic Problems (Last Updated 05/31/20 @ 16:56 by Alexa Hernandez) Pulmonary fibrosis (Chronic) Chronic respiratory failure with hypoxia (Chronic) Chronic anemia (Chronic) Hypothyroidism (Chronic) GERD (gastroesophageal reflux disease) (Chronic) RLS (restless legs syndrome) (Chronic) Anxiety and depression (Chronic) Secondary pulmonary arterial hypertension (Chronic) Left ventricular diastolic dysfunction (Chronic) Persistent atrial fibrillation (Chronic) Essential (primary) hypertension (Chronic) COPD (chronic obstructive pulmonary disease) (Chronic) Surgical History: cholecystectomy, hysterectomy Psychiatric History: Anxiety, Depression [employer]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 Aj Gray MD) Brother Cancer Sister Cancer Sister COPD (chronic obstructive pulmonary disease) History Items: - - Patient with no reported maternal or paternal family history of heart disease, diabetes or cancer. Paternal Family History: Family History (Last Reviewed 05/23/20 @ 13:[address] Aj Gray MD) Brother Cancer Sister Cancer Sister COPD (chronic obstructive pulmonary disease) History Items: - - Patient with no reported maternal or paternal family history of heart disease, diabetes or cancer. Lives: Spouse/ Significant Other Smoking Status: Former smoker Tobacco Use: Non-smoker Alcohol: None Drugs: None Review of Systems - Review of Systems General: Denies: Fever, Night Sweats, Fatigue Cardiovascular: Reports: Shortness of Breath. Denies: Chest Discomfort, Orthopnea, PND, Peripheral Edema, Palpitations, Lightheadedness, Dizziness, Near Syncope, Syncope Respiratory: Denies: Cough, Sputum Production, Hemoptysis Gastrointestinal: Denies: Hematemesis, Hematochezia, Melena Genitourinary: Denies: Dysuria, Hematuria Skin: Denies: Rash Objective: Vital Signs Temp Pulse Resp BP Pulse Ox 98.0 F 140 H 17 113/57 L 98 06/30/20 07:48 06/30/20 07:54 06/30/20 07:48 06/30/20 07:54 06/30/20 07:48 Oxygen Flow Rate (L/min) 4 Oxygen Delivery Method CPAP Weight: 128 lb 8.472 oz Body Mass Index (BMI) 18.4 Intake and Output for Last 24 Hours 06/28/20 06/29/20 06/30/20 23:59 23:59 23:59 Intake Total 344 / 344 Output Total 575 / 575 Balance -231 / -231 General: Awake, Alert, Oriented x 3 HEENT: PERRL, EOMI, Sclera Non Icteric Neck: Supple, Good ROM, No Lymph Node Enlargement Lungs: Clear to auscultation Cardiovascular: Irregular Rhythm 06/29/20 22:00: Magnesium 1.7 06/29/20 22:00: PT 14.2, INR 1.2, APTT 27.0 06/29/20 22:00: Sodium 140, Potassium 3.0 L, Chloride 100, Carbon Dioxide 33.0 H, Anion Gap 7, BUN 12, Creatinine 0.50 L, Est GFR (MDRD) Af Amer 154, Est GFR (MDRD) Non-Af 127, BUN/Creatinine Ratio 24.1 H, Glucose 153 H, Calcium 10.1 06/30/20 05:38: WBC 12.2 H, RBC 3.67 L, Hgb 11.9 L, Hct 37.3, MCV 101.6 H, MCH 32.4 H, MCHC 31.9 L, Plt Count 191, MPV 10.4, Immature Gran % (Auto) 0.700, Neut % (Auto) 89.0 H, Lymph % (Auto) 3.7 L, [place] % (Auto) 6.4, Eos % (Auto) 0.0, Baso % (Auto) 0.2, Absolute Neuts (auto) 10.8 H, Nucleated RBC % 0 06/30/20 05:38: Sodium 136, Potassium 3.9, Chloride 99, Carbon Dioxide 31.0, Anion Gap 6, BUN 16, Creatinine 0.86, Est GFR (MDRD) Af Amer 82, Est GFR (MDRD) Non-Af 68, BUN/Creatinine Ratio 18.7, Glucose 153 H, Calcium 10.3 H, Total Bilirubin 1.20 H Rhythm: EKG: ECHO: Stress Test: Cardiac Cath: PCI: CT Surgery: Holter monitor: EPS: PPM: CXR: Chest CT Scan: Assessment/Plan Discussed the cardiac care plan with the orthopedic surgeon Patient will need anticoagulation with heparin, rate control using Cardizem drip, beta-ravindra, digoxin We will check echocardiogram and repeat troponin in the morning We will keep the patient n.p.o. with the plan of cardiac catheterization in the morning. Tentatively the right hip surgery can be planned for Wednesday if she remains stable clinically, as discussed with the orthopedic surgeon. Other medication will include statin low-dose aspirin. I will sign out this patient to the cardiology team for continuation of cardiac care. Patient understand the cardiac care plan and will continue.
[2020-06-30] MEDS: Digoxin 125 MCG Tablet PO (11:56)
[2020-06-30] MEDS: HEPARIN/D5w 25,000 UNITS 25,000 UNITS/250 ML IV.SOLN. 8 UNITS IV (12:25)
--- NOTE | 2020-06-30 12:32 | PCM.CONS.GEN ---
Reason for Consult Reason for Consultation: Assess respiratory risk for upcoming surgical procedure History of Present Illness: The patient is a 79 year old F known to me for end-stage COPD. The patient is stabilized on a regimen of Breo 200 Incruse, as needed use of nebulized albuterol and Atrovent, Daliresp 500, azithromycin 250 She has intermittent bouts of hemoptysis and 2-3 rounds of exacerbation a year. Her last exacerbation was in February 2020 where she developed a left lower lobe pneumonia. The patient had a gradual recovery over 2 to 3 months Saturations while active were in the 70s and high flow O2 is necessary. The patient has weaned down to 4 L and is able to maintain saturation above 90% prior to admission. After falling and breaking a hip she is admitted for possible surgery on Wednesday. Currently produces intermittent bouts of hemoptysis and anticoagulants have been on hold intermittently. Hemoptysis has been small-volume and there has been little risk. The patient also produces yellow sputum at times and occasionally white sputum but the volume is minimal. She denies fevers chills night sweats malaise wheeze she has her baseline cough and baseline sputum production. She is not complaining of any respiratory disease currently. She has not had exposure to respiratory illness. She has been homebound. Due to respiratory failure she is on supplemental O2 and CPAP at night. Uses a nasal interface. [] Past Medical History Past Medical History (Chronic Problems): Chronic Problems (Last Updated 05/31/20 @ 16:56 by Alexa Hernandez) Pulmonary fibrosis (Chronic) Chronic respiratory failure with hypoxia (Chronic) Chronic anemia (Chronic) Hypothyroidism (Chronic) GERD (gastroesophageal reflux disease) (Chronic) RLS (restless legs syndrome) (Chronic) Anxiety and depression (Chronic) Secondary pulmonary arterial hypertension (Chronic) Left ventricular diastolic dysfunction (Chronic) Persistent atrial fibrillation (Chronic) Essential (primary) hypertension (Chronic) COPD (chronic obstructive pulmonary disease) (Chronic) Medical History: Medical History (Last Updated 05/31/20 @ 16:56 by Alexa Hernandez) Secondary pulmonary arterial hypertension (Chronic) I27.21 Left ventricular diastolic dysfunction (Chronic) I51.9 Persistent atrial fibrillation (Chronic) I48.19 Hemoptysis (Resolved) R04.2 Essential (primary) hypertension (Chronic) I10 COPD (chronic obstructive pulmonary disease) (Chronic) J44.9 Anxiety F41.9 Anxiety and depression F41.9, F32.9 Epistaxis R04.0 GERD (gastroesophageal reflux disease) K21.9 Hypokalemia E87.6 Hypomagnesemia E83.42 Hypothyroidism E03.9 Insomnia G47.00 Iron deficiency E61.1 Kyphosis M40.209 Normochromic anemia D64.9 Osteoporosis M81.0 Pulmonary fibrosis J84.10 RLS (restless legs syndrome) G25.81 Vertebral compression fracture M48.50XA Chronic respiratory failure with hypoxia (Resolved) J96.11 Metabolic encephalopathy (Resolved) G93.41 Paroxysmal atrial fibrillation (Inactive) I48.0 Allergies amoxicillin trihydrate [From Augmentin] Allergy (Verified 05/23/20 12:59) Rash gluten Allergy (Verified 05/23/20 12:59) Other potassium clavulanate [From Augmentin] Allergy (Verified 05/23/20 12:59) Rash risperidone [From Risperdal] Adverse Reaction (Severe, Verified 05/23/20 12:59) Hallucinations esomeprazole magnesium [From Nexium] Adverse Reaction (Verified 05/23/20 12:59) Itching furosemide [From Lasix] Adverse Reaction (Verified 05/23/20 12:59) Hives Sulfa (Sulfonamide Antibiotics) Adverse Reaction (Verified 05/23/20 12:59) CONFUSION sulfamethoxazole [From Bactrim] Adverse Reaction (Verified 05/23/20 12:59) CONFUSION trimethoprim [From Bactrim] Adverse Reaction (Verified 05/23/20 12:59) CONFUSION Home Medications: Ambulatory Orders Medication Instructions Recorded Levothyroxine [Synthroid] 50 mcg PO DAILY 07/12/17 busPIRone [Buspar] 5 mg PO BID 07/23/17 Sertraline HCl [Zoloft] 50 mg PO DAILY 09/13/17 Famotidine [Pepcid] 20 mg PO BID #60 tab 09/24/17 roflumilast 500 mcg tablet 500 mcg PO QDAY 12/03/17 Iron Polysaccharide Complex 150 mg PO DAILYCM 01/26/18 [Ferrex 150] Magnesium Oxide [Mag-Ox 400] 400 mg PO DAILY@0800 02/04/18 Montelukast [Singulair] 10 mg PO DAILY@1700 #30 tab 02/17/18 azithromycin 250 mg tablet 250 mg PO DAILY 12/06/18 umeclidinium 62.5 mcg/actuation 1 inh INHALATION DAILY 10/25/19 blister powder for inhalation Fluticasone/Vilanterol [Breo 1 ea IH DAILY 03/01/20 Ellipta 200-25 Mcg INH] Albuterol Aerosols [Ventolin 2.5 mg INHALATION Q2H PRN PRN #1 03/04/20 Aerosols] box Cefdinir [Omnicef [equiv]] 300 mg PO Q12H #10 cap 03/04/20 Guaifenesin [Mucinex] 1,200 mg PO BID #20 tab 03/04/20 diltiazem HCl 240 mg 240 mg PO QDAY #90 cap 03/21/20 capsule,extended release 24 hr Polyethylene Glycol 3350 [Miralax] 17 gm PO DAILY #5 packet 05/14/20 hydrochlorothiazide 25 mg tablet 25 mg PO DAILY #90 tab 05/23/20 Surgical History: Surgical History (Last Reviewed 05/23/20 @ 13:[address] Aj Gray MD) History of bronchoscopy Z98.890 lung washing History of cholecystectomy Z90.49 History of hysterectomy Z90.710 Surgical History: cholecystectomy, hysterectomy Psychiatric History: Anxiety, Depression [employer] History: No pertinent [employer] history Lives: Spouse/ Significant Other Smoking Status: Former smoker Tobacco Use: Non-smoker Alcohol: None Drugs: None - *Family History Maternal Family History: Family History (Last Reviewed 05/23/20 @ 13:[address] Aj Gray MD) Brother Cancer Sister Cancer Sister COPD (chronic obstructive pulmonary disease) History Items: - - Patient with no reported maternal or paternal family history of heart disease, diabetes or cancer. Paternal Family History: Family History (Last Reviewed 05/23/20 @ 13:[address] Aj Gray MD) Brother Cancer Sister Cancer Sister COPD (chronic obstructive pulmonary disease) History Items: - - Patient with no reported maternal or paternal family history of heart disease, diabetes or cancer. Review of Systems Constitutional: Denies: Chills, Fever, Weight Change HEENT: Denies: Head Aches, Sinus Congestion, Sinus Drainage Cardiovascular: Reports: Chest Pressure, Chest Tightness, Syncope. Denies: Chest Pain, Palpitations Respiratory: Reports: Hemoptysis - Hemoptysis even this week has been noted. Small-volume material, flecks of blood. She has not reported any excess wheezing or sputum production. Denies: Cough, Shortness of breath at rest, Sputum production Gastrointestinal: Denies: Abdominal Pain, Nausea, Vomiting Genitourinary: Denies: Dysuria Musculoskeletal: Denies: Joint Pain - Right hip pain is noted, Joint Tenderness Skin: Denies: Rash, Wounds Neurological: Denies: Numbness, Tingling, Focal weakness Psychiatric: Denies: Anxiety, Depression, Homicidal Ideations, Suicidal Ideations Hematologic/ Lymphatic: Denies: Easy Bruising, Easy Bleeding Patient Problems: Active and Suspected Problems (Last Updated 05/31/20 @ 16:56 by Alexa Hernandez) Closed right hip fracture (Acute) Hypokalemia (Acute) Non-ST elevation (NSTEMI) myocardial infarction (Acute) - Physical Exam Vitals/I&O's: Vital Signs Temp Pulse Resp BP Pulse Ox 98.0 F 118 H 18 109/76 100 06/30/20 07:48 06/30/20 12:15 06/30/20 12:15 06/30/20 12:15 06/30/20 12:15 Oxygen Flow Rate (L/min) 4 Oxygen Delivery Method Nasal Cannula Weight: 58.3 kg Body Mass Index (BMI) 18.4 Intake and Output for Last 24 Hours 06/28/20 06/29/20 06/30/20 23:59 23:59 23:59 Intake Total 345.42 / 345.42 Output Total 575 / 575 Balance -229.58 / -229.58 General: Alert, Oriented x3, Cooperative, - - Thin, frail, kyphotic, no accessory muscle use HEENT: Atraumatic, PERRLA, EOMI, Normocephalic Oral: Dry Mucosa, - - Thrush Neck: Supple, No JVD, Negative Carotid Bruits, No Nodes Lungs: No wheeze - Poor air movement, diminished breath sounds, prolonged expiratory phase, I: E ratio 1-2, no audible wheeze, no cough, hyperresonant to percussion, no accessory muscle use-Baseline exam Cardiovascular: No murmurs, Irregular Rate - Not rate controlled Abdomen: Bowel Sounds Present, Soft, Non Tender, Non-Distended, No Hepato-splenomegaly Extremities: No edema, Capillary Refill Less than 3 Seconds, Diminished Peripheral Pulses, - - Pallor Skin: No rashes, No breakdown Musculoskeletal: No Tenderness to Palpation of Joints or Extremities, No Muscle Wasting, Cachexia, Tenderness - Lower extremity Neurological: Cranial nerves II-XII grossly intact Psych/Mental Status: Normal Affect, Appropriate, Alert and oriented to time, place, person, mood and affect Laboratory Results 06/29/20 22:00: Magnesium 1.7, TSH 1.23, Free T4 1.25 06/29/20 22:00: Blood Type O POSITIVE, Antibody Screen NEGATIVE 06/29/20 22:00: PT 14.2, INR 1.2, APTT 27.0 06/29/20 22:00: Sodium 140, Potassium 3.0 L, Chloride 100, Carbon Dioxide 33.0 H, Anion Gap 7, BUN 12, Creatinine 0.50 L, Estim Creat Clear Calc 42.67, Est GFR (MDRD) Af Amer 154, Est GFR (MDRD) Non-Af 127, BUN/Creatinine Ratio 24.1 H, Glucose 153 H, Calcium 10.1 06/29/20 22:03: COVID-19 ([facility]) Not Detected 06/30/20 05:38: WBC 12.2 H, RBC 3.67 L, Hgb 11.9 L, Hct 37.3, MCV 101.6 H, MCH 32.4 H, MCHC 31.9 L, RDW Std Deviation 46.3 H, RDW Coeff of Jeff 12.3, Plt Count 191, MPV 10.4, Immature Gran % (Auto) 0.700, Neut % (Auto) 89.0 H, Lymph % (Auto) 3.7 L, [place] % (Auto) 6.4, Eos % (Auto) 0.0, Baso % (Auto) 0.2, Absolute Neuts (auto) 10.8 H, Absolute Lymphs (auto) 0.45 L, Nucleated RBC % 0, Differential Comment COMMENT 06/30/20 05:38: Sodium 136, Potassium 3.9, Chloride 99, Carbon Dioxide 31.0, Anion Gap 6, BUN 16, Creatinine 0.86, Estim Creat Clear Calc 49.62, Est GFR (MDRD) Af Amer 82, Est GFR (MDRD) Non-Af 68, BUN/Creatinine Ratio 18.7, Glucose 153 H, Calcium 10.3 H, Total Bilirubin 1.20 H, AST 19, ALT 30, Alkaline Phosphatase 64, Total Protein 6.4, Albumin 3.4, Globulin 3.0, Albumin/Globulin Ratio 1.1 06/30/20 09:55: Troponin I < 0.015 Current Medications Acetaminophen (Tylenol) 650 mg PO Q6H PRN PRN PRN Reason: Pain Score 1-10/Temp > 100.7 F Al Hydroxide/Mg Hydroxide (Mylanta Ii) 30 ml PO Q6H PRN PRN PRN Reason: Gastric Burning Albuterol Sulfate (Ventolin Aerosols) 2.5 mg INHALATION Q2H PRN PRN PRN Reason: Dyspnea, wheezing Albuterol/Ipratropium (Duoneb) 3 ml INHALATION Q6HWA.RT [facility] Last Admin: 06/30/20 06:53 Dose: 3 ml Documented by: Budesonide (Pulmicort Aerosol) 0.5 mg INHALATION Q12H.RT [facility] Last Admin: 06/30/20 06:53 Dose: 0.5 mg Documented by: Buspirone HCl (Buspar) 5 mg PO BID [facility] Last Admin: 06/30/20 09:27 Dose: 5 mg Documented by: Diltiazem HCl (Cardizem Cd) 240 mg PO DAILY [facility] Last Admin: 06/30/20 09:27 Dose: 240 mg Documented by: Famotidine (Pepcid) 20 mg PO BID [facility] Last Admin: 06/30/20 09:27 Dose: 20 mg Documented by: Guaifenesin (Robitussin) 20 ml PO Q4H PRN PRN PRN Reason: COUGH Heparin Sodium (Porcine) (Heparin Na) 0 unit IV UD PRN; Protocol PRN Reason: dose adjustment Diltiazem HCl 125 mg/ Dextrose 125 mls @ 5 mls/hr IV .Q25H [facility]; Protocol Last Titration: 06/30/20 12:15 Dose: 5 mg/hr, 5 mls/hr Documented by: Heparin Sodium/Dextrose () 25,000 units in 250 mls @ 8 mls/hr IV .O37A10L [facility]; Protocol Last Admin: 06/30/20 12:25 Dose: 800 units/hr, 8 mls/hr Documented by: Sodium Chloride () 1,000 mls @ 0 mls/hr IV .Q0M [facility] Levothyroxine Sodium (Synthroid) 50 mcg PO DAILY@0600 [facility] Last Admin: 06/30/20 03:10 Dose: Not Given Documented by: Magnesium Chloride (Mag64) 128 mg PO DAILY [facility] Last Admin: 06/30/20 09:27 Dose: 128 mg Documented by: Melatonin (Melatonin) 3 mg PO QHS PRN PRN PRN Reason: INSOMNIA Metoprolol Tartrate (Lopressor (Beta Aixa)) 25 mg PO BID [facility] Montelukast Sodium (Singulair) 10 mg PO DAILY@1700 [facility] Morphine Sulfate () 2 mg IV Q3H PRN PRN PRN Reason: Pain Score 6-10 Last Admin: 06/29/20 22:42 Dose: 2 mg Documented by: Nitroglycerin (Nitrostat) 0.4 mg SUBLINGUAL Q5M PRN PRN Reason: CARDIAC/CHEST PAIN Non-Formulary Medication (Roflumilast [Daliresp]) 500 mcg PO QDAY [facility] Ondansetron HCl (Zofran) 4 mg IV Q8H PRN PRN PRN Reason: NAUSEA/VOMITING Last Admin: 06/30/20 02:04 Dose: 4 mg Documented by: Oxycodone HCl (Oxyir) 5 mg PO Q4H PRN PRN PRN Reason: Pain Score 4-5 Polysaccharide Iron [facility] ([facility]rex 150) [facility] Last Admin: 06/30/20 09:27 Dose: 150 mg Documented by: Prochlorperazine Edisylate (Compazine Iv) 5 mg IV Q4H PRN PRN PRN Reason: Breakthrough Nausea/Vomiting Sertraline HCl (Zoloft) 50 mg PO DAILY [facility] Last Admin: 06/30/20 09:27 Dose: 50 mg Documented by: Sodium Chloride () 10 - 40 ml IV UD PRN PRN Reason: SALINE FLUSH Last Admin: 06/30/20 07:55 Dose: 10 ml Documented by: Throat Lozenges (Cepacol Sore Throat Lozenge) 1 lozenge MUCOUS MEM Q2H PRN PRN PRN Reason: SORE THROAT Assessment/Plan All Active Problems (Last Updated 05/31/20 @ 16:56 by Alexa Hernandez) Closed right hip fracture (Acute) Hypokalemia (Acute) Non-ST elevation (NSTEMI) myocardial infarction (Acute) Hemoptysis (Resolved) Acute respiratory failure with hypoxia and hypercapnia (Resolved) Ankle edema (Resolved) Atrial fibrillation with rapid ventricular response (Resolved) CAP (community acquired pneumonia) (Resolved) COPD with acute exacerbation (Resolved) Chronic respiratory failure with hypoxia (Resolved) Healthcare-associated pneumonia (Resolved) History of malnutrition (Resolved) Human metapneumovirus (hMPV) pneumonia (Resolved) Leucocytosis (Resolved) Metabolic alkalosis (Resolved) Metabolic encephalopathy (Resolved) Pneumonia (Resolved) Streptococcal pneumonia (Resolved) Thrush (Resolved) This patient has end-stage COPD with an element of fibrotic disease. She has recurrent hemoptysis. She has recurrent exacerbations 2-3 a year. Pulmonary function studies fall in the severe range and the patient is on 4 L of oxygen with respiratory failure requiring CPAP at night and 4 L during the day. Consider obtaining an ABG prior to surgery to evaluate the degree of respiratory failure prior to anesthesia assessment. Laboratories are reviewed, CT scan as well as recent chest x-rays are also reviewed today at length There is no acute disease on the June 29 chest x-ray She is at high risk for postoperative pulmonary complications that include mucous plugging, hypoxemia, chronic respiratory failure, acute on chronic respiratory failure, pneumonia, hemoptysis To reduce perioperative complications and recommending her baseline medications of Breo 200 once daily and Incruse. I would avoid utilizing albuterol and Atrovent in addition to the above as the patient is not having an exacerbation I would maintain adequate hydration and consider guaifenesin 1200 twice daily to help mobilize secretions The patient was instructed by me on how to use an incentive spirometer and she is encouraged to do so every 1-2 hours I am recommending fitting the patient for a full facemask and having the patient feel bilevel therapy 12/5 today while awake for 30 minutes and have some level adaptation. The patient is to prepare for the postoperative period where b noninvasive ventilation therapy may be required to sustain the patient. If the procedure could be done without mechanical ventilation that would be preferable. Would reduce the risk of pneumonia but also reduce the risk of running the risk of maintaining the patient mechanically ventilated. Advanced directives should be addressed with the patient as to which direction she would like to proceed in the event of persistent mechanical ventilation with worsening status. I would be liberal with the use of bilevel therapy postoperatively with sleep and during periods of dyspnea Thank you for the ability to care for this patient in the hospital setting
[2020-06-30 14:00] LABS: Color, Urine Yellow (Yellow); Glucose, Dipstick 50 mg/dl (Normal); Ketone-Dipstick 5 mg/dl (Negative); Leukocyte Esterase-Dipstick 100 /ul (Negative); Nitrite-Dipstick Positive (Negative); Occult Blood-Urine 250 /ul (Negative); Protein-Dipstick 30 mg/dl (Negative); Specific Gravity, Urine 1.025 (1.002-1.030); Urine Clarity Sl. Cloudy (Clear); Urine Urobilinogen 4 mg/dl (Normal)
[2020-06-30 14:02] LABS: Urine Bilirubin Dipstick 6 mg/dL (Negative)
[2020-06-30] MEDS: Morphine 2 MG/ML Syringe IV (14:44)
[2020-06-30] MEDS: CLARIFY ORDER NOTE (17:17)
[2020-06-30] MEDS: Montelukast 10 MG Tablet PO (17:18)
--- NOTE | 2020-06-30 19:20 | PCM.CONS.GEN ---
Reason for Consult Date of Consultation: 06/30/20 Reason for Consultation: right hip fracture History of Present Illness: The patient is a 79 year old F who sustained a ground-level fall at home landing onto her right hip immediately having pain inability ambulate she initially went to [facility] and requested transfer to [facility] for definitive care she admits to right knee pain but denies other joint pain at this point. Past Medical History Past Medical History (Chronic Problems): Chronic Problems (Last Updated 05/31/20 @ 16:56 by Alexa Hernandez) Pulmonary fibrosis (Chronic) Chronic respiratory failure with hypoxia (Chronic) Chronic anemia (Chronic) Hypothyroidism (Chronic) GERD (gastroesophageal reflux disease) (Chronic) RLS (restless legs syndrome) (Chronic) Anxiety and depression (Chronic) Secondary pulmonary arterial hypertension (Chronic) Left ventricular diastolic dysfunction (Chronic) Persistent atrial fibrillation (Chronic) Essential (primary) hypertension (Chronic) COPD (chronic obstructive pulmonary disease) (Chronic) Medical History: Medical History (Last Updated 05/31/20 @ 16:56 by Aleax Hernandez) Secondary pulmonary arterial hypertension (Chronic) I27.21 Left ventricular diastolic dysfunction (Chronic) I51.9 Persistent atrial fibrillation (Chronic) I48.19 Hemoptysis (Resolved) R04.2 Essential (primary) hypertension (Chronic) I10 COPD (chronic obstructive pulmonary disease) (Chronic) J44.9 Anxiety F41.9 Anxiety and depression F41.9, F32.9 Epistaxis R04.0 GERD (gastroesophageal reflux disease) K21.9 Hypokalemia E87.6 Hypomagnesemia E83.42 Hypothyroidism E03.9 Insomnia G47.00 Iron deficiency E61.1 Kyphosis M40.209 Normochromic anemia D64.9 Osteoporosis M81.0 Pulmonary fibrosis J84.10 RLS (restless legs syndrome) G25.81 Vertebral compression fracture M48.50XA Chronic respiratory failure with hypoxia (Resolved) J96.11 Metabolic encephalopathy (Resolved) G93.41 Paroxysmal atrial fibrillation (Inactive) I48.0 Allergies amoxicillin trihydrate [From Augmentin] Allergy (Verified 05/23/20 12:59) Rash gluten Allergy (Verified 05/23/20 12:59) Other potassium clavulanate [From Augmentin] Allergy (Verified 05/23/20 12:59) Rash risperidone [From Risperdal] Adverse Reaction (Severe, Verified 05/23/20 12:59) Hallucinations esomeprazole magnesium [From Nexium] Adverse Reaction (Verified 05/23/20 12:59) Itching furosemide [From Lasix] Adverse Reaction (Verified 05/23/20 12:59) Hives Sulfa (Sulfonamide Antibiotics) Adverse Reaction (Verified 05/23/20 12:59) CONFUSION sulfamethoxazole [From Bactrim] Adverse Reaction (Verified 05/23/20 12:59) CONFUSION trimethoprim [From Bactrim] Adverse Reaction (Verified 05/23/20 12:59) CONFUSION Home Medications: Ambulatory Orders Medication Instructions Recorded Levothyroxine [Synthroid] 50 mcg PO DAILY 07/12/17 busPIRone [Buspar] 5 mg PO BID 07/23/17 Sertraline HCl [Zoloft] 50 mg PO DAILY 09/13/17 Famotidine [Pepcid] 20 mg PO BID #60 tab 09/24/17 roflumilast 500 mcg tablet 500 mcg PO QDAY 12/03/17 Iron Polysaccharide Complex 150 mg PO DAILYCM 01/26/18 [Ferrex 150] Magnesium Oxide [Mag-Ox 400] 400 mg PO DAILY@0800 02/04/18 Montelukast [Singulair] 10 mg PO DAILY@1700 #30 tab 02/17/18 azithromycin 250 mg tablet 250 mg PO DAILY 12/06/18 umeclidinium 62.5 mcg/actuation 1 inh INHALATION DAILY 10/25/19 blister powder for inhalation Fluticasone/Vilanterol [Breo 1 ea IH DAILY 03/01/20 Ellipta 200-25 Mcg INH] Albuterol Aerosols [Ventolin 2.5 mg INHALATION Q2H PRN PRN #1 03/04/20 Aerosols] box Cefdinir [Omnicef [equiv]] 300 mg PO Q12H #10 cap 03/04/20 Guaifenesin [Mucinex] 1,200 mg PO BID #20 tab 03/04/20 diltiazem HCl 240 mg 240 mg PO QDAY #90 cap 03/21/20 capsule,extended release 24 hr Polyethylene Glycol 3350 [Miralax] 17 gm PO DAILY #5 packet 05/14/20 hydrochlorothiazide 25 mg tablet 25 mg PO DAILY #90 tab 05/23/20 Surgical History: Surgical History (Last Reviewed 05/23/20 @ 13:[address] 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 Aj Gray MD) Brother Cancer Sister Cancer Sister COPD (chronic obstructive pulmonary disease) History Items: - - Patient with no reported maternal or paternal family history of heart disease, diabetes or cancer. Paternal Family History: Family History (Last Reviewed 05/23/20 @ 13:[address] Aj Gray MD) Brother Cancer Sister Cancer Sister COPD (chronic obstructive pulmonary disease) History Items: - - Patient with no reported maternal or paternal family history of heart disease, diabetes or cancer. Patient Problems: Active and Suspected Problems (Last Updated 05/31/20 @ 16:56 by Alexa Hernandez) Closed right hip fracture (Acute) Hypokalemia (Acute) Non-ST elevation (NSTEMI) myocardial infarction (Acute) Objective: X-rays right hip and femur demonstrate a comminuted intertrochanteric fracture with lesser trochanteric involvement and subtrochanteric extension - Physical Exam Vitals/I&O's: Vital Signs Temp Pulse Resp BP Pulse Ox 98.0 F 90 21 H 106/56 L 94 06/30/20 07:48 06/30/20 17:45 06/30/20 17:45 06/30/20 17:45 06/30/20 17:45 Oxygen Flow Rate (L/min) 4 Oxygen Delivery Method Nasal Cannula Weight: 128 lb 8.472 oz Body Mass Index (BMI) 18.4 Intake and Output for Last 24 Hours 06/28/20 06/29/20 06/30/20 23:59 23:59 23:59 Intake Total 882.92 / 882.92 Output Total 925 / 925 Balance -42.08 / -42.08 General: Cooperative, No apparent distress, Confused Extremities: - - right lower extremity in joyce traction. able to wiggle toes intact pedal pulses compatments soft there is no effusion about the knee or swelling. compartments soft. Laboratory Results 06/29/20 22:00: Magnesium 1.7, TSH 1.23, Free T4 1.25 06/29/20 22:00: Blood Type O POSITIVE, Antibody Screen NEGATIVE 06/29/20 22:00: PT 14.2, INR 1.2, APTT 27.0 06/29/20 22:00: Sodium 140, Potassium 3.0 L, Chloride 100, Carbon Dioxide 33.0 H, Anion Gap 7, BUN 12, Creatinine 0.50 L, Estim Creat Clear Calc 42.67, Est GFR (MDRD) Af Amer 154, Est GFR (MDRD) Non-Af 127, BUN/Creatinine Ratio 24.1 H, Glucose 153 H, Calcium 10.1 06/29/20 22:03: COVID-19 (VERONICA) Not Detected 06/30/20 05:38: WBC 12.2 H, RBC 3.67 L, Hgb 11.9 L, Hct 37.3, MCV 101.6 H, MCH 32.4 H, MCHC 31.9 L, RDW Std Deviation 46.3 H, RDW Coeff of Jeff 12.3, Plt Count 191, MPV 10.4, Immature Gran % (Auto) 0.700, Neut % (Auto) 89.0 H, Lymph % (Auto) 3.7 L, [place] % (Auto) 6.4, Eos % (Auto) 0.0, Baso % (Auto) 0.2, Absolute Neuts (auto) 10.8 H, Absolute Lymphs (auto) 0.45 L, Nucleated RBC % 0, Differential Comment COMMENT 06/30/20 05:38: Sodium 136, Potassium 3.9, Chloride 99, Carbon Dioxide 31.0, Anion Gap 6, BUN 16, Creatinine 0.86, Estim Creat Clear Calc 49.62, Est GFR (MDRD) Af Amer 82, Est GFR (MDRD) Non-Af 68, BUN/Creatinine Ratio 18.7, Glucose 153 H, Calcium 10.3 H, Total Bilirubin 1.20 H, AST 19, ALT 30, Alkaline Phosphatase 64, Total Protein 6.4, Albumin 3.4, Globulin 3.0, Albumin/Globulin Ratio 1.1 06/30/20 09:55: Troponin I < 0.015 06/30/20 13:50: Urine Color Yellow, Urine Clarity Sl. Cloudy, Urine pH 5.0, Ur Specific Stacy 1.025, Urine Protein 30 H, Urine Glucose (UA) 50 H, Urine Ketones 5 H, Urine Occult Blood 250 H, Urine Nitrite Positive H, Urine Bilirubin 6 H, Urine Urobilinogen 4 H, Ur Leukocyte Esterase 100 H 06/30/20 18:36: APTT Pending Current Medications Acetaminophen (Tylenol) 650 mg PO Q6H PRN PRN PRN Reason: Pain Score 1-10/Temp > 100.7 F Al Hydroxide/Mg Hydroxide (Mylanta Ii) 30 ml PO Q6H PRN PRN PRN Reason: Gastric Burning Albuterol Sulfate (Ventolin Aerosols) 2.5 mg INHALATION Q2H PRN PRN PRN Reason: Dyspnea, wheezing Albuterol/Ipratropium (Duoneb) 3 ml INHALATION Q6HWA.RT [facility] Last Admin: 06/30/20 13:20 Dose: Not Given Documented by: Budesonide (Pulmicort Aerosol) 0.5 mg INHALATION Q12H.RT [facility] Last Admin: 06/30/20 06:53 Dose: 0.5 mg Documented by: Buspirone HCl (Buspar) 5 mg PO BID [facility] Last Admin: 06/30/20 09:27 Dose: 5 mg Documented by: Diltiazem HCl (Cardizem Cd) 240 mg PO DAILY [facility] Last Admin: 06/30/20 09:27 Dose: 240 mg Documented by: Famotidine (Pepcid) 20 mg PO BID [facility] Last Admin: 06/30/20 09:27 Dose: 20 mg Documented by: Guaifenesin (Robitussin) 20 ml PO Q4H PRN PRN PRN Reason: COUGH Heparin Sodium (Porcine) (Heparin Na) 0 unit IV UD PRN; Protocol PRN Reason: dose adjustment Diltiazem HCl 125 mg/ Dextrose 125 mls @ 5 mls/hr IV .Q25H [facility]; Protocol Last Titration: 06/30/20 17:45 Dose: 10 mg/hr, 10 mls/hr Documented by: Heparin Sodium/Dextrose () 25,000 units in 250 mls @ 8 mls/hr IV .[id number] [facility]; Protocol Last Admin: 06/30/20 12:25 Dose: 800 units/hr, 8 mls/hr Documented by: Sodium Chloride () 1,000 mls @ 0 mls/hr IV .Q0M [facility] Levothyroxine Sodium (Synthroid) 50 mcg PO DAILY@0600 [facility] Last Admin: 06/30/20 03:10 Dose: Not Given Documented by: Magnesium Chloride (Mag64) 128 mg PO DAILY [facility] Last Admin: 06/30/20 09:27 Dose: 128 mg Documented by: Melatonin (Melatonin) 3 mg PO QHS PRN PRN PRN Reason: INSOMNIA Metoprolol Tartrate (Lopressor (Beta Aixa)) 25 mg PO BID [facility] Montelukast Sodium (Singulair) 10 mg PO DAILY@1700 [facility] Last Admin: 06/30/20 17:18 Dose: 10 mg Documented by: Morphine Sulfate () 2 mg IV Q3H PRN PRN PRN Reason: Pain Score 6-10 Last Admin: 06/30/20 14:44 Dose: 2 mg Documented by: Nitroglycerin (Nitrostat) 0.4 mg SUBLINGUAL Q5M PRN PRN Reason: CARDIAC/CHEST PAIN Non-Formulary Medication (Roflumilast [Daliresp]) 500 mcg PO QDAY [facility] Ondansetron HCl (Zofran) 4 mg IV Q8H PRN PRN PRN Reason: NAUSEA/VOMITING Last Admin: 06/30/20 14:58 Dose: 4 mg Documented by: Oxycodone HCl (Oxyir) 5 mg PO Q4H PRN PRN PRN Reason: Pain Score 4-5 Polysaccharide [facility]rex 150) [facility] Last Admin: 06/30/20 09:27 Dose: 150 mg Documented by: Prochlorperazine Edisylate (Compazine Iv) 5 mg IV Q4H PRN PRN PRN Reason: Breakthrough Nausea/Vomiting Sertraline HCl (Zoloft) 50 mg PO DAILY [facility] Last Admin: 06/30/20 09:27 Dose: 50 mg Documented by: Sodium Chloride () 10 - 40 ml IV UD PRN PRN Reason: SALINE FLUSH Last Admin: 06/30/20 07:55 Dose: 10 ml Documented by: Throat Lozenges (Cepacol Sore Throat Lozenge) 1 lozenge MUCOUS MEM Q2H PRN PRN PRN Reason: SORE THROAT Assessment/Plan All Active Problems (Last Updated 05/31/20 @ 16:56 by Alexa Hernandez) Closed right hip fracture (Acute) Hypokalemia (Acute) Non-ST elevation (NSTEMI) myocardial infarction (Acute) Hemoptysis (Resolved) Acute respiratory failure with hypoxia and hypercapnia (Resolved) Ankle edema (Resolved) Atrial fibrillation with rapid ventricular response (Resolved) CAP (community acquired pneumonia) (Resolved) COPD with acute exacerbation (Resolved) Chronic respiratory failure with hypoxia (Resolved) Healthcare-associated pneumonia (Resolved) History of malnutrition (Resolved) Human metapneumovirus (hMPV) pneumonia (Resolved) Leucocytosis (Resolved) Metabolic alkalosis (Resolved) Metabolic encephalopathy (Resolved) Pneumonia (Resolved) Streptococcal pneumonia (Resolved) Thrush (Resolved) right hip intertrochanteric fracture with subtrochanteric extension plan for OR wednesday for long TFN discussed with Cardiology about timing and concensus is wednesday is best. hold anticoagulation tomorrow night and NPO for surgery wednesday Santiago ANNE
[2020-06-30] MEDS: Metoprolol Tartrate 25 MG Tablet PO (21:18)
[2020-06-30] MEDS: oxyCODONE 5 MG Tablet PO (21:18)
[2020-06-30] MEDS: Acetaminophen 325 MG Tablet 650 MG PO (21:19)
[2020-06-30] MEDS: 0.9% Normal Saline 1,000 ML 100 ML IV (23:26)
[2020-07-01] VITALS (30 sets, daily range): BP systolic 87–116; BP diastolic 47–65; PULSE 56–88; RESP 12–27; TEMP 36.6–37; O2SAT 58–100
--- NOTE | 2020-07-01 06:00 | ECHOD_ITS ---
Reason For Study: Afib/Flutter Procedure This was a 2D Doppler, Color Flow transthoracic echocardiogram. Exam performed portable in patient room. Left Ventricle Normal LV size. The estimated ejection fraction is 60 %. Unable to assess diastolic dysfunction. No regional wall motion abnormalities noted. Right Ventricle Normal RV size. Normal systolic function. Atria The left atrium is moderately enlarged. The right atrium is moderately enlarged. Mitral Valve There is no mitral valve stenosis. No mitral valve insufficiency. Tricuspid Valve There is no tricuspid stenosis. Moderate (2+) tricuspid valve insufficiency. Pulmonary artery systolic pressure is 70 mmHg. Aortic Valve Trisinus/trileaflet aortic valve. Aortic sclerosis, no stenosis. There is no aortic stenosis. No aortic valve insufficiency. Pulmonic Valve There is no pulmonic valvular stenosis. No pulmonic valve insufficiency. Great Vessels Normal aortic root. Pericardium/Pleural No pericardial effusion. MMode/2D Measurements & Calculations LVIDd: 3.7 cm IVSd: 1.1 cm LA dimension: 3.8 cm LVIDs: 2.6 cm LVPWd: 0.94 cm RVDd: 4.1 cm FS: 30.1 % LAV(MOD-sp4): 91.2 ml LA A4 area: 27.9 cm2 RA A4 area: 24.2 cm2 Time Measurements MV dec time: 0.22 sec Doppler Measurements & Calculations MV E max tavon: 97.2 cm/sec Lat Peak E' Tavon: 12.5 cm/sec Med Peak E' Tavon: 16.3 cm/sec MV A max tavon: 25.5 cm/sec E/E' lat: 7.8 E/E' med: 5.9 MV E/A: 3.8 MV V2 max: 127.1 cm/sec MV P1/2t max tavon: 132.9 cm/sec Ao V2 max: 104.9 cm/sec MV max P.5 mmHg MV P1/2t: 79.0 msec Ao max P.4 mmHg MV V2 mean: 54.8 cm/sec MV dec slope: 492.7 cm/sec2 MV mean P.6 mmHg MVA(P1/2t): 2.8 cm2 MV V2 VTI: 29.9 cm LV V1 max: 77.8 cm/sec PA V2 max: 94.4 cm/sec TR max tavon: 395.0 cm/sec LV V1 max P.4 mmHg TR max P.4 mmHg Interpretation Summary The estimated ejection fraction is 60 %. Unable to assess diastolic dysfunction. The left atrium is moderately enlarged. The right atrium is moderately enlarged. Moderate (2+) tricuspid valve insufficiency. Pulmonary artery systolic pressure is 70 mmHg. Ordering Physician: Zaina Esquivel Referring Physician: Alexey Herman Performed By: Az Mauricio RCS
[2020-07-01] MEDS: dilTIAZem CD 240 MG Capsule PO (06:59)
[2020-07-01] MEDS: Metoprolol Tartrate 25 MG Tablet PO ×2 (06:59→22:32)
[2020-07-01] MEDS: Levothyroxine 50 MCG Tablet PO (06:59)
--- NOTE | 2020-07-01 07:07 | NURSING ---
Gave p.o cardizem and metoprolol, and stopped cardizem gtt per Dr. Sanchez. CMast, RN
[2020-07-01] MEDS: Budesonide Respules 0.5 MG/2 ML AMPUL.NEB. INHALATION ×2 (07:18→19:49)
--- NOTE | 2020-07-01 08:04 | PN_ITS ---
Patient Problems: Active and Suspected Problems (Last Updated 05/31/20 @ 16:56 by Alexa Hernandez) Closed right hip fracture (Acute) Hypokalemia (Acute) Non-ST elevation (NSTEMI) myocardial infarction (Acute) Reason for Visit: Follow-up on right hip fracture/A. fib with RVR Subjective: Patient was seen and examined. She complains of severe pain in the right hip. Her heart rate is controlled. Discussed with cardiology, patient would not be going for cardiac cath. Right hip surgery is planned for tomorrow. Objective: Physical exam: General: Alert, Oriented x3, Cooperative, No apparent distress HEENT: Atraumatic, PERRLA, EOMI, Normocephalic Oral: Dry Mucosa Neck: Supple, No JVD, Negative Carotid Bruits Lungs: - - decreased breath sounds bibasally,fine bibasilar crackles. On 4L of oxygen by nasal canula Cardiovascular: Normal S1, Normal S2, No murmurs, Tachycardic, Abdomen: Bowel Sounds Present, Soft, Non Tender, Non-Distended, No Hepato- splenomegaly Extremities: No clubbing, No cyanosis, No edema, Capillary Refill Less than 3 Seconds Skin: No rashes, No breakdown Musculoskeletal: No Tenderness to Palpation of Joints or Extremities Lymphatic: No Cervical, Supraclavicular, or Inguinal Adenopathy Neurological: Cranial nerves II-XII grossly intact, Neuro grossly intact, Motor Exam 5/5 strength throughout Psych/Mental Status: Normal Affect, Appropriate, Alert and oriented to time, place, person, mood and affect Vitals/I&O's: Vital Signs Temp Pulse Resp BP Pulse Ox 97.9 F 75 18 110/59 L 100 07/01/20 04:00 07/01/20 07:00 07/01/20 07:00 07/01/20 07:00 07/01/20 06:28 Oxygen Flow Rate (L/min) 4 Oxygen Delivery Method Nasal Cannula Weight: 59.8 kg Body Mass Index (BMI) 18.4 Intake and Output for Last 24 Hours 06/29/20 06/30/20 07/01/20 23:59 23:59 23:59 Intake Total 1494.09 / 1579.09 1169.92 / 1169.92 Output Total 925 / 975 50 / 50 Balance 569.09 / 604.09 1119.92 / 1119.92 Laboratory Results 06/30/20 09:55: Troponin I < 0.015 06/30/20 13:50: Urine Color Yellow, Urine Clarity Sl. Cloudy, Urine pH 5.0, Ur Specific [place] 1.025, Urine Protein 30 H, Urine Glucose (UA) 50 H, Urine Ketones 5 H, Urine Occult Blood 250 H, Urine Nitrite Positive H, Urine Bilirubin 6 H, Urine Urobilinogen 4 H, Ur Leukocyte Esterase 100 H 06/30/20 18:36: APTT 86.0 H 07/01/20 01:30: APTT 82.0 H 07/01/20 07:48: Sodium Pending, Potassium Pending, Chloride Pending, Carbon Dioxide Pending, Anion Gap Pending, BUN Pending, Creatinine Pending, Est GFR (MDRD) Af Amer Pending, Est GFR (MDRD) Non-Af Pending, BUN/Creatinine Ratio Pending, Glucose Pending, Calcium Pending, Troponin I Pending 07/01/20 07:48: WBC Pending, RBC Pending, Hgb Pending, Hct Pending, MCV Pending, MCH Pending, MCHC Pending, RDW Std Deviation Pending, RDW Coeff of Jeff Pending, Plt Count Pending, Neut % (Auto) Pending, Absolute Neuts (auto) Pending 07/01/20 07:48: APTT Pending Current Medications Acetaminophen (Tylenol) 650 mg PO Q6H PRN PRN PRN Reason: Pain Score 1-10/Temp > 100.7 F Last Admin: 06/30/20 21:19 Dose: 650 mg Documented by: Al Hydroxide/Mg Hydroxide (Mylanta Ii) 30 ml PO Q6H PRN PRN PRN Reason: Gastric Burning Albuterol Sulfate (Ventolin Aerosols) 2.5 mg INHALATION Q2H PRN PRN PRN Reason: Dyspnea, wheezing Albuterol/Ipratropium (Duoneb) 3 ml INHALATION Q6HWA.RT [facility] Last Admin: 07/01/20 07:17 Dose: Not Given Documented by: Budesonide (Pulmicort Aerosol) 0.5 mg INHALATION Q12H.RT [facility] Last Admin: 07/01/20 07:18 Dose: 0.5 mg Documented by: Buspirone HCl (Buspar) 5 mg PO BID [facility] Last Admin: 06/30/20 21:18 Dose: 5 mg Documented by: Diltiazem HCl (Cardizem Cd) 240 mg PO DAILY [facility] Last Admin: 07/01/20 06:59 Dose: 240 mg Documented by: Famotidine (Pepcid) 20 mg PO BID [facility] Last Admin: 06/30/20 21:18 Dose: 20 mg Documented by: Guaifenesin (Robitussin) 20 ml PO Q4H PRN PRN PRN Reason: COUGH Heparin Sodium (Porcine) (Heparin Na) 0 unit IV UD PRN; Protocol PRN Reason: dose adjustment Diltiazem HCl 125 mg/ Dextrose 125 mls @ 5 mls/hr IV .Q25H [facility]; Protocol Last Titration: 07/01/20 07:00 Dose: 0 mg/hr, 0 mls/hr Documented by: Heparin Sodium/Dextrose () 25,000 units in 250 mls @ 8 mls/hr IV .[id number] [facility]; Protocol Last Titration: 07/01/20 02:00 Dose: 600 units/hr, 6 mls/hr Documented by: Sodium Chloride () 1,000 mls @ 0 mls/hr IV .Q0M [facility] Cefazolin Sodium 2 gm/ Sodium (Chloride) 120 mls @ 240 mls/hr IV SEND TO OR W/PATIENT ONE Stop: 07/02/20 07:29 Sodium Chloride () 1,000 mls @ 100 mls/hr IV .Q10H [facility] Last Infusion: 07/01/20 05:01 Dose: 100 mls/hr Documented by: Levothyroxine Sodium (Synthroid) 50 mcg PO DAILY@0600 [facility] Last Admin: 07/01/20 06:59 Dose: 50 mcg Documented by: Magnesium Chloride (Mag64) 128 mg PO DAILY [facility] Last Admin: 06/30/20 09:27 Dose: 128 mg Documented by: Melatonin (Melatonin) 3 mg PO QHS PRN PRN PRN Reason: INSOMNIA Metoprolol Tartrate (Lopressor (Beta Aixa)) 25 mg PO BID [facility] Last Admin: 07/01/20 06:59 Dose: 25 mg Documented by: Montelukast Sodium (Singulair) 10 mg PO DAILY@1700 [facility] Last Admin: 06/30/20 17:18 Dose: 10 mg Documented by: Morphine Sulfate () 2 mg IV Q3H PRN PRN PRN Reason: Pain Score 6-10 Last Admin: 06/30/20 14:44 Dose: 2 mg Documented by: Nitroglycerin (Nitrostat) 0.4 mg SUBLINGUAL Q5M PRN PRN Reason: CARDIAC/CHEST PAIN Non-Formulary Medication (Roflumilast [Daliresp]) 500 mcg PO QDAY [facility] Ondansetron HCl (Zofran) 4 mg IV Q8H PRN PRN PRN Reason: NAUSEA/VOMITING Last Admin: 06/30/20 14:58 Dose: 4 mg Documented by: Oxycodone HCl (Oxyir) 5 mg PO Q4H PRN PRN PRN Reason: Pain Score 4-5 Last Admin: 06/30/20 21:18 Dose: 5 mg Documented by: Polysaccharide [facility] ([facility]rex 150) [facility] Last Admin: 06/30/20 09:27 Dose: 150 mg Documented by: Prochlorperazine Edisylate (Compazine Iv) 5 mg IV Q4H PRN PRN PRN Reason: Breakthrough Nausea/Vomiting Sertraline HCl (Zoloft) 50 mg PO DAILY [facility] Last Admin: 06/30/20 09:27 Dose: 50 mg Documented by: Sodium Chloride () 10 - 40 ml IV UD PRN PRN Reason: SALINE FLUSH Last Admin: 06/30/20 07:55 Dose: 10 ml Documented by: Throat Lozenges (Cepacol Sore Throat Lozenge) 1 lozenge MUCOUS MEM Q2H PRN PRN PRN Reason: SORE THROAT STROKE Vital Signs/Narrative: Vital Signs Pulse Resp BP Pulse Ox 07/01/20 07:00 75 18 110/59 L 07/01/20 06:59 73 110/59 L 07/01/20 06:34 68 07/01/20 06:28 67 27 H 111/51 L 100 07/01/20 05:00 61 18 105/50 L 100 Medical Necessity - Tobacco Use Smoking Status: Former smoker Tobacco Use: Non-smoker Assessment/Plan All Active Problems (Last Updated 05/31/20 @ 16:56 by Alexa Hernandez) Closed right hip fracture (Acute) Hypokalemia (Acute) Non-ST elevation (NSTEMI) myocardial infarction (Acute) Hemoptysis (Resolved) Acute respiratory failure with hypoxia and hypercapnia (Resolved) Ankle edema (Resolved) Atrial fibrillation with rapid ventricular response (Resolved) CAP (community acquired pneumonia) (Resolved) COPD with acute exacerbation (Resolved) Chronic respiratory failure with hypoxia (Resolved) Healthcare-associated pneumonia (Resolved) History of malnutrition (Resolved) Human metapneumovirus (hMPV) pneumonia (Resolved) Leucocytosis (Resolved) Metabolic alkalosis (Resolved) Metabolic encephalopathy (Resolved) Pneumonia (Resolved) Streptococcal pneumonia (Resolved) Thrush (Resolved) 1. Acute right comminuted intertrochanteric fracture of the right femur secondary to mechanical fall Pain is fairly controlled, orthopedics plans on surgery tomorrow Continue current pain regimen 2. Acute displaced fracture of the medial right superior pubic ramus and mid inferior right pubic ramus Orthopedics surgery consulted, conservative management 3. A. fib with RVR, rate controlled, on oral Cardizem. Metoprolol as well as heparin drip Heparin drip to be discontinued prior to surgery 4. 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 Hypokalemia, resolved 6. Hypothyroidism, continue levothyroxine 7. Hypertension, controlled, continue on current regimen with Cardizem, metoprolol 8. Anxiety/depression, continue on BuSpar and sertraline Inpatient E&M: [id number] [facility] L3
[2020-07-01 08:12] LABS: Partial Thromboplast Time 41.8 Seconds (24.1-36.2)
[2020-07-01 08:28] LABS: Absolute Lymphocyte Count 0.56 X10^3/uL (0.83-4.51); Absolute Neutrophil Count 7.6 X10^3/uL (2.0-7.7); Basophil# 0.02 X10^3/uL; Basophil% 0.2 % (0-1); Eosinophil# 0.02 X10^3/uL; Eosinophils% 0.2 % (0-5); Hematocrit 30.6 % (37-47); Hemoglobin 9.7 g/dL (12.0-15.0); Lymphocyte # 0.56 X10^3/ul (4.0); Lymphocyte % 6.2 % (19-41); Mean Corp Hgb Conc 31.7 g/dL (32-36); Mean Corpuscular Hgb 32.6 pg (27.0-32.0); Mean Corpuscular Volume 102.7 fL (81-99); Mean Platelet Vol. 10.7 fl (6.2-12.0); Monocyte# 0.83 X10^3/uL; Monocyte% 9.2 % (0-10); NRBC Flagged by Analyzer 0 % (0-5); Neutrophil # 7.58 X10^3/uL (2.7-7.7); Neutrophil % 83.6 % (47-70); POSITIVE DIFFERENTIAL YES; Platelet Count 146 K/mm3 (150-450); RBC Distribution Width CV 12.5 % (11.6-14.6); RBC Distribution Width SD 46.5 fl (35.1-43.9); Red Blood Count 2.98 M/mm3 (4.2-5.4); White Blood Count 9.1 K/mm3 (4.4-11.0)
[2020-07-01 08:41] LABS: Differential Indicated SCAN CRITERIA MET
[2020-07-01 08:52] LABS: Anion Gap 3 (5-15); BUN 29 mg/dL (7-18); BUN/Creat Ratio 25.9 RATIO (10-20); Calcium,Total 9.4 mg/dL (8.5-10.1); Chloride 100 mmol/L (98-107); Creatinine, Serum 1.12 mg/dL (0.55-1.02); EST Glomerular Filtration Rate 50 mL/min (>60); Est Glom Filt Rate - Afr Amer 60 mL/min (>60); Estimated Creatinine Clearance 39.08 ml/min; Glucose 107 mg/dL (74-106); Potassium 4.4 mmol/L (3.5-5.1); Sodium Level 133 mmol/L (136-145)
[2020-07-01] MEDS: 0.9% Normal Saline 1,000 ML 100 ML IV ×2 (08:52→17:38)
[2020-07-01] MEDS: oxyCODONE 5 MG Tablet PO ×2 (09:10→17:38)
[2020-07-01] MEDS: Acetaminophen 325 MG Tablet 650 MG PO ×2 (09:10→17:38)
--- NOTE | 2020-07-01 09:10 | CASEMGMT ---
[facility], the following are in-network tertiary facilities: [facility], [place], [facility], [facility], [facility], [facility], and . Matias DAVENPORT CM
[2020-07-01 09:24] LABS: Differential Comment SCANNED
[2020-07-01] MEDS: Magnesium Chloride 64 MG Delay Rel.Tablet 128 MG PO (10:59)
[2020-07-01] MEDS: Famotidine 20 MG Tablet PO ×2 (10:59→22:33)
[2020-07-01] MEDS: Iron Polysaccharide Complex 150 MG CAPSULE PO (10:59)
[2020-07-01] MEDS: Sertraline 50 MG Tablet PO (10:59)
[2020-07-01] MEDS: busPIRone 5 MG Tablet PO ×2 (11:00→22:32)
[2020-07-01] MEDS: ROFLUMILAST 500 MCG TABLET PO (11:00)
--- NOTE | 2020-07-01 14:26 | CASEMGMT ---
Assessment- SW completed assessment with patient's as patient was sleeping. SW also confirmed address and phon numbers. Living situation- Patient lives with her in a 1 story home with 4 entry steps. PCP: Dr Herman Specialists: Dr King for Pulmonary and Dr Gray for Cardiac Pharmacy: [facility] DME: Patient has a walker, cane, raised toilet seat, and grab bars. She also has O2 from [facility] which she wears 4L all the time. She also has a cpap machine from [employer]. She has a nebulizer patient's bought. ADL's/IADL's: Patient receives help with everything. Her daughter manages her medications. Patient's said he does the cleaning, cooking, driving, and manages finances. Patient uses a walker all the time. Past SNF/rehab: TCU Past HH: Yes, but patient's did not know which agency LW: Yes POA: Yes. Patient's is her Healthcare POA Plan: LINDSAY discussed d/c plan with . LINDSAY explained that most of the time patient's with hip fractures need to go to nursing homes. He said patient is not going to a fpc ever. LINDSAY mentioned TCU and he said she has been there and that is the only place he will let her go. LINDSAY told him SW will put her name on the list so they will hold a bed for her and he was in agreement with this. LINDSAY did call Brittany and she will have a bed for patient. [facility] TCU Lillian LARA
[2020-07-01 14:44] LABS: Partial Thromboplast Time 47.1 Seconds (24.1-36.2)
--- NOTE | 2020-07-01 15:37 | PN.CARD_ITS ---
Subjectve: Patient denies any chest pain. She had a mechanical fall. She did not have any anginal symptoms prior to this incident. Her troponin has been unremarkable. Objective: Vital Signs Temp Pulse Resp BP Pulse Ox 98.3 F 56 L 22 H 102/52 L 93 07/01/20 13:30 07/01/20 14:59 07/01/20 13:30 07/01/20 13:30 07/01/20 13:30 Oxygen Flow Rate (L/min) 4 Oxygen Delivery Method Nasal Cannula Weight: 131 lb 13.383 oz Body Mass Index (BMI) 18.4 Intake and Output for Last 24 Hours 06/29/20 06/30/20 07/01/20 23:59 23:59 23:59 Intake Total 1494.09 / 1579.09 1876.42 / 1876.42 Output Total 925 / 975 175 / 175 Balance 569.09 / 604.09 1701.42 / 1701.42 General: Awake, Alert, Oriented x 3 HEENT: Atraumatic Oral: Moist Mucosa 06/30/20 18:36: APTT 86.0 H 07/01/20 01:30: APTT 82.0 H 07/01/20 07:48: Sodium Cancelled, Potassium Cancelled, Chloride Cancelled, Carbon Dioxide Cancelled, Anion Gap Cancelled, BUN Cancelled, Creatinine Cancelled, Est GFR (MDRD) Af Amer Cancelled, Est GFR (MDRD) Non-Af Cancelled, BUN/Creatinine Ratio Cancelled, Glucose Cancelled, Calcium Cancelled, Troponin I Cancelled 07/01/20 07:48: WBC Cancelled, Corrected WBC Cancelled, RBC Cancelled, Hgb Cancelled, Hct Cancelled, MCV Cancelled, MCH Cancelled, MCHC Cancelled, Plt Count Cancelled, MPV Cancelled, Immature Gran % (Auto) Cancelled, Neut % (Auto) Cancelled, Lymph % (Auto) Cancelled, [place] % (Auto) Cancelled, Eos % (Auto) Cancelled, Baso % (Auto) Cancelled, Absolute Neuts (auto) Cancelled, Total Counted Cancelled, Neutrophils % (Manual) Cancelled, Band Neutrophils % Can celled, Lymphocytes % (Manual) Cancelled, Monocytes % (Manual) Cancelled, Eosinophils % (Manual) Cancelled, Basophils % (Manual) Cancelled, Metamyelocytes % Cancelled, Myelocytes % Cancelled, Promyelocytes % Cancelled, Blast Cells % Cancelled, Plasma Cell % (Manual) Cancelled, Other Cells % Cancelled, Nucleated RBC % Cancelled 07/01/20 07:48: APTT 41.8 H 07/01/20 07:48: Sodium 133 L, Potassium 4.4, Chloride 100, Carbon Dioxide 30.0, Anion Gap 3 L, BUN 29 H, Creatinine 1.12 H, Est GFR (MDRD) Af Amer 60, Est GFR (MDRD) Non-Af 50 L, BUN/Creatinine Ratio 25.9 H, Glucose 107 H, Calcium 9.4, Troponin I < 0.015 07/01/20 08:18: WBC 9.1, RBC 2.98 L, Hgb 9.7 L, Hct 30.6 L, MCV 102.7 H, MCH 32.6 H, MCHC 31.7 L, Plt Count 146 L, MPV 10.7, Immature Gran % (Auto) 0.600, Neut % (Auto) 83.6 H, Lymph % (Auto) 6.2 L, [place] % (Auto) 9.2, Eos % (Auto) 0.2, Baso % (Auto) 0.2, Absolute Neuts (auto) 7.6, Nucleated RBC % 0 07/01/20 14:16: APTT 47.1 H Rhythm: EKG: ECHO: Stress Test: Cardiac Cath: PCI: CT Surgery: Holter monitor: EPS: PPM: CXR: Chest CT Scan: Medical Necessity - Tobacco Use Smoking Status: Former smoker Tobacco Use: Non-smoker Assessment/Plan 1. Atrial fibrillation: Patient is off IV Cardizem. Heart rate is controlled under current regimen. 2. Preoperative evaluation: Patient does not need any further preoperative cardiac evaluation prior to her hip surgery. From a cardiac standpoint she is at low risk for perioperative cardiac complications. She would benefit from telemetry monitoring in the perioperative period due to her A. fib.
[2020-07-01] MEDS: Montelukast 10 MG Tablet PO (16:48)
--- NOTE | 2020-07-01 17:26 | PCM.PN.ORT ---
Patient Problems: Active and Suspected Problems (Last Updated 05/31/20 @ 16:56 by Alexa Hernandez) Closed right hip fracture (Acute) Hypokalemia (Acute) Non-ST elevation (NSTEMI) myocardial infarction (Acute) Subjective: c/l pain right hip. eating, at bedside. - Physical Exam Vitals/I&O's: Vital Signs Temp Pulse Resp BP Pulse Ox 98.3 F 56 L 22 H 102/52 L 93 07/01/20 13:30 07/01/20 14:59 07/01/20 13:30 07/01/20 13:30 07/01/20 13:30 Oxygen Flow Rate (L/min) 4 Oxygen Delivery Method Nasal Cannula Weight: 131 lb 13.383 oz Body Mass Index (BMI) 18.4 Intake and Output for Last 24 Hours 06/29/20 06/30/20 07/01/20 23:59 23:59 23:59 Intake Total 1494.09 / 1579.09 1876.42 / 1876.42 Output Total 925 / 975 175 / 175 Balance 569.09 / 604.09 1701.42 / 1701.42 General: Cooperative, No apparent distress Extremities: - - unchanged exam, [facility] Laboratory Results 06/30/20 18:36: APTT 86.0 H 07/01/20 01:30: APTT 82.0 H 07/01/20 07:48: Sodium Cancelled, Potassium Cancelled, Chloride Cancelled, Carbon Dioxide Cancelled, Anion Gap Cancelled, BUN Cancelled, Creatinine Cancelled, Estim Creat Clear Calc Cancelled, Est GFR (MDRD) Af Amer Cancelled, Est GFR (MDRD) Non-Af Cancelled, BUN/Creatinine Ratio Cancelled, Glucose Cancelled, Calcium Cancelled, Troponin I Cancelled 07/01/20 07:48: WBC Cancelled, Corrected WBC Cancelled, RBC Cancelled, Hgb Cancelled, Hct Cancelled, MCV Cancelled, MCH Cancelled, MCHC Cancelled, RDW Std Deviation Cancelled, RDW Coeff of Jeff Cancelled, Plt Count Cancelled, MPV Cancelled, Immature Gran % (Auto) Cancelled, Neut % (Auto) Cancelled, Lymph % (Auto) Cancelled, [place] % (Auto) Cancelled, Eos % (Auto) Cancelled, Baso % (Auto) Cancelled, Absolute Neuts (auto) Cancelled, Absolute Lymphs (auto) Cancelled, Total Counted Cancelled, Neutrophils % (Manual) Cancelled, Band Neutrophils % Cancelled, Lymphocytes % (Manual) Cancelled, Monocytes % (Manual) Cancelled, Eosinophils % (Manual) Cancelled, Basophils % (Manual) Cancelled, Metamyelocytes % Cancelled, Myelocytes % Cancelled, Promyelocytes % Cancelled, Blast Cells % Cancelled, Plasma Cell % (Manual) Cancelled, Other Cells % Cancelled, Nucleated RBC % Cancelled, Nucleated RBCs/100 WBC Cancelled, Differential Comment Cancelled, Diff Path Review Cancelled, Hypersegmented Neuts Cancelled, Atypical Lymphocytes Cancelled, Reactive Lymphocytes Cancelled, Smudge Cells Cancelled, Toxic Granulation Cancelled, Toxic Vacuolation Cancelled, Dohle Bodies Cancelled, Sammi Rods Cancelled, Platelet Estimate Cancelled, Plt Morphology Comment Cancelled, RBC Morphology Cancelled, Polychromasia Cancelled, Hypochromasia Cancelled, Poikilocytosis Cancelled, Basophilic Stippling Cancelled, Anisocytosis Cancelled, Microcytosis Cancelled, Macrocytosis Cancelled, Spherocytes Cancelled, Sickle Cells Cancelled, Target Cells Cancelled, Tear Drop Cells Cancelled, Ovalocytes Cancelled, Stomatocytes Cancelled, [place] Bodies Cancelled, [place] Cells Cancelled, Bite Cells Cancelled, Crenated Cell Cancelled, Acanthocytes (Spur) Cancelled, Rouleaux Cancelled, Schistocytes Cancelled 07/01/20 07:48: APTT 41.8 H 07/01/20 07:48: Sodium 133 L, Potassium 4.4, Chloride 100, Carbon Dioxide 30.0, Anion Gap 3 L, BUN 29 H, Creatinine 1.12 H, Estim Creat Clear Calc 39.08, Est GFR (MDRD) Af Amer 60, Est GFR (MDRD) Non-Af 50 L, BUN/Creatinine Ratio 25.9 H, Glucose 107 H, Calcium 9.4, Troponin I < 0.015 07/01/20 08:18: WBC 9.1, RBC 2.98 L, Hgb 9.7 L, Hct 30.6 L, MCV 102.7 H, MCH 32.6 H, MCHC 31.7 L, RDW Std Deviation 46.5 H, RDW Coeff of Jeff 12.5, Plt Count 146 L, MPV 10.7, Immature Gran % (Auto) 0.600, Neut % (Auto) 83.6 H, Lymph % (Auto) 6.2 L, [place] % (Auto) 9.2, Eos % (Auto) 0.2, Baso % (Auto) 0.2, Absolute Neuts (auto) 7.6, Absolute Lymphs (auto) 0.56 L, Nucleated RBC % 0, Differential Comment SCANNED 07/01/20 14:16: APTT 47.1 H Current Medications Acetaminophen (Tylenol) 650 mg PO Q6H PRN PRN PRN Reason: Pain Score 1-10/Temp > 100.7 F Last Admin: 07/01/20 09:10 Dose: 650 mg Documented by: Al Hydroxide/Mg Hydroxide (Mylanta Ii) 30 ml PO Q6H PRN PRN PRN Reason: Gastric Burning Albuterol Sulfate (Ventolin Aerosols) 2.5 mg INHALATION Q2H PRN PRN PRN Reason: Dyspnea, wheezing Albuterol/Ipratropium (Duoneb) 3 ml INHALATION Q6HWA.RT [facility] Last Admin: 07/01/20 12:52 Dose: Not Given Documented by: Budesonide (Pulmicort Aerosol) 0.5 mg INHALATION Q12H.RT [facility] Last Admin: 07/01/20 07:18 Dose: 0.5 mg Documented by: Buspirone HCl (Buspar) 5 mg PO BID [facility] Last Admin: 07/01/20 11:00 Dose: 5 mg Documented by: Diltiazem HCl (Cardizem Cd) 240 mg PO DAILY [facility] Last Admin: 07/01/20 06:59 Dose: 240 mg Documented by: Famotidine (Pepcid) 20 mg PO BID [facility] Last Admin: 07/01/20 10:59 Dose: 20 mg Documented by: Guaifenesin (Robitussin) 20 ml PO Q4H PRN PRN PRN Reason: COUGH Heparin Sodium (Porcine) (Heparin Na) 0 unit IV UD PRN; Protocol PRN Reason: dose adjustment Heparin Sodium/Dextrose () 25,000 units in 250 mls @ 8 mls/hr IV .[id number] [facility]; Protocol Last Titration: 07/01/20 14:30 Dose: 800 units/hr, 8 mls/hr Documented by: Sodium Chloride () 1,000 mls @ 0 mls/hr IV .Q0M [facility] Cefazolin Sodium 2 gm/ Sodium (Chloride) 120 mls @ 240 mls/hr IV SEND TO OR W/PATIENT ONE Stop: 07/02/20 07:29 Sodium Chloride () 1,000 mls @ 100 mls/hr IV .Q10H [facility] Last Admin: 07/01/20 08:52 Dose: 100 mls/hr Documented by: Levothyroxine Sodium (Synthroid) 50 mcg PO DAILY@0600 [facility] Last Admin: 07/01/20 06:59 Dose: 50 mcg Documented by: Magnesium Chloride (Mag64) 128 mg PO DAILY [facility] Last Admin: 07/01/20 10:59 Dose: 128 mg Documented by: Melatonin (Melatonin) 3 mg PO QHS PRN PRN PRN Reason: INSOMNIA Metoprolol Tartrate (Lopressor (Beta Aixa)) 25 mg PO BID [facility] Last Admin: 07/01/20 06:59 Dose: 25 mg Documented by: Montelukast Sodium (Singulair) 10 mg PO DAILY@1700 [facility] Last Admin: 07/01/20 16:48 Dose: 10 mg Documented by: Morphine Sulfate () 2 mg IV Q3H PRN PRN PRN Reason: Pain Score 6-10 Last Admin: 06/30/20 14:44 Dose: 2 mg Documented by: Nitroglycerin (Nitrostat) 0.4 mg SUBLINGUAL Q5M PRN PRN Reason: CARDIAC/CHEST PAIN Ondansetron HCl (Zofran) 4 mg IV Q8H PRN PRN PRN Reason: NAUSEA/VOMITING Last Admin: 06/30/20 14:58 Dose: 4 mg Documented by: Oxycodone HCl (Oxyir) 5 mg PO Q4H PRN PRN PRN Reason: Pain Score 4-5 Last Admin: 07/01/20 09:10 Dose: 5 mg Documented by: Polysaccharide [facility] ([facility]rex 150) [facility] Last Admin: 07/01/20 10:59 Dose: 150 mg Documented by: Prochlorperazine Edisylate (Compazine Iv) 5 mg IV Q4H PRN PRN PRN Reason: Breakthrough Nausea/Vomiting Sertraline HCl (Zoloft) 50 mg PO DAILY [facility] Last Admin: 07/01/20 10:59 Dose: 50 mg Documented by: Sodium Chloride () 10 - 40 ml IV UD PRN PRN Reason: SALINE FLUSH Last Admin: 06/30/20 07:55 Dose: 10 ml Documented by: Throat Lozenges (Cepacol Sore Throat Lozenge) 1 lozenge MUCOUS MEM Q2H PRN PRN PRN Reason: SORE THROAT Medical Necessity - Tobacco Use Smoking Status: Former smoker Tobacco Use: Non-smoker Assessment/Plan All Active Problems (Last Updated 05/31/20 @ 16:56 by Alexa Hernandez) Closed right hip fracture (Acute) Hypokalemia (Acute) Non-ST elevation (NSTEMI) myocardial infarction (Acute) Hemoptysis (Resolved) Acute respiratory failure with hypoxia and hypercapnia (Resolved) Ankle edema (Resolved) Atrial fibrillation with rapid ventricular response (Resolved) CAP (community acquired pneumonia) (Resolved) COPD with acute exacerbation (Resolved) Chronic respiratory failure with hypoxia (Resolved) Healthcare-associated pneumonia (Resolved) History of malnutrition (Resolved) Human metapneumovirus (hMPV) pneumonia (Resolved) Leucocytosis (Resolved) Metabolic alkalosis (Resolved) Metabolic encephalopathy (Resolved) Pneumonia (Resolved) Streptococcal pneumonia (Resolved) Thrush (Resolved) right hip intertrochanteric fracture with subtrochanteric extension 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
[2020-07-01] MEDS: Bisacodyl 5 MG Tablet PO (18:35)
[2020-07-01] MEDS: Ipratropium/Albuterol Sulfate 3 ML AMPUL.NEB INHALATION (19:49)
--- NOTE | 2020-07-01 19:51 | CPS ---
pt is heavily medicated 90% on 4.5 lpm nasal o2. Pharmacy does theraputic interchanges for Breo and Incruse.. pt is not getting inhalers. aerosols only.
[2020-07-01 20:53] LABS: Partial Thromboplast Time 56.7 Seconds (24.1-36.2)
[2020-07-01] MEDS: Docusate Sodium 100 MG Capsule 200 MG PO (22:32)
[2020-07-02] VITALS (29 sets, daily range): BP systolic 77–172; BP diastolic 46–104; PULSE 69–110; RESP 12–25; TEMP 36.4–36.8; O2SAT 91–100; BMI 19.3; BMI 18.4
--- NOTE | 2020-07-02 01:02 | CPS ---
Pt was not in room to be given aerosol.
[2020-07-02] MEDS: oxyCODONE 5 MG Tablet PO (01:47)
[2020-07-02] MEDS: 0.9% Normal Saline 1,000 ML 100 ML IV ×3 (03:39→22:24)
--- NOTE | 2020-07-02 04:54 | CPS ---
Pt tried bilevel, 12/7 pt tolerated well. while awake pt was not receptive, but sleeping did well
[2020-07-02] MEDS: Levothyroxine 50 MCG Tablet PO (05:21)
[2020-07-02] MEDS: 0.9% Saline Lock 10 ML Syringe IV ×2 (05:21→21:16)
[2020-07-02 06:55] LABS: Absolute Lymphocyte Count 0.61 X10^3/uL (0.83-4.51); Absolute Neutrophil Count 7.5 X10^3/uL (2.0-7.7); Basophil# 0.02 X10^3/uL; Basophil% 0.2 % (0-1); Eosinophil# 0.01 X10^3/uL; Eosinophils% 0.1 % (0-5); Hematocrit 28.5 % (37-47); Hemoglobin 8.9 g/dL (12.0-15.0); Lymphocyte # 0.61 X10^3/ul (4.0); Lymphocyte % 6.8 % (19-41); Mean Corp Hgb Conc 31.2 g/dL (32-36); Mean Corpuscular Volume 102.5 fL (81-99); Mean Platelet Vol. 11.1 fl (6.2-12.0); Monocyte# 0.78 X10^3/uL; Monocyte% 8.7 % (0-10); NRBC Flagged by Analyzer 0 % (0-5); Neutrophil # 7.53 X10^3/uL (2.7-7.7); Neutrophil % 83.5 % (47-70); Platelet Count 148 K/mm3 (150-450); RBC Distribution Width CV 12.4 % (11.6-14.6); RBC Distribution Width SD 46.7 fl (35.1-43.9); Red Blood Count 2.78 M/mm3 (4.2-5.4)
[2020-07-02] MEDS: Ipratropium/Albuterol Sulfate 3 ML AMPUL.NEB INHALATION ×2 (07:21→18:58)
[2020-07-02] MEDS: Budesonide Respules 0.5 MG/2 ML AMPUL.NEB. INHALATION ×2 (07:21→18:58)
[2020-07-02 07:46] LABS: ALB/GLOB Ratio 0.9 RATIO (0.9-2.4); AST(SGOT) 20 U/L (15-37); Alanine Aminotransfer ALT/SGPT 18 U/L (13-56); Albumin, Serum 2.5 g/dL (3.2-5.0); Alkaline Phosphatase 52 U/L (45-117); Anion Gap 3 (5-15); BUN 24 mg/dL (7-18); Calcium,Total 9.4 mg/dL (8.5-10.1); Chloride 104 mmol/L (98-107); Creatinine, Serum 0.77 mg/dL (0.55-1.02); EST Glomerular Filtration Rate 76 mL/min (>60); Est Glom Filt Rate - Afr Amer 93 mL/min (>60); Estimated Creatinine Clearance 44.87 ml/min; Globulin 2.7 g/dL (2.2-4.2); Glucose 119 mg/dL (74-106); Potassium 4.2 mmol/L (3.5-5.1); Protein, Total 5.2 g/dL (6.4-8.2); Sodium Level 135 mmol/L (136-145)
[2020-07-02 09:40] LABS: Allen Test Positive; Base Excess 3 mmol/L (-2 to +2); Blood Gas Specimen Type ART; FI02 40; Mode NIV; O2 Delivery Device BiPAP; PO2 71 mmHG (75-100); SITE R Radial; SO2 93 % (95-99); Total Carbon Dioxide 31 mmol/L; pCO2 53.4 mmHg (35-45); pH 7.34 (7.35-7.45)
--- NOTE | 2020-07-02 10:00 | CPS ---
Blood gas results given to . Redraw in 1 hour after being on the Bipap.
[2020-07-02] MEDS: dilTIAZem CD 240 MG Capsule PO (10:28)
[2020-07-02] MEDS: ROFLUMILAST 500 MCG TABLET PO (10:28)
[2020-07-02] MEDS: Metoprolol Tartrate 25 MG Tablet PO (10:29)
[2020-07-02] MEDS: Famotidine 20 MG Tablet PO (10:29)
[2020-07-02 11:56] LABS: Allen Test Positive; Base Excess 2 mmol/L (-2 to +2); Bicarbonate 26.9 mmol/L (22-26); Blood Gas Specimen Type ART; FI02 40; Mode NIV; O2 Delivery Device BiPAP; PO2 91 mmHG (75-100); SITE R Radial; SO2 97 % (95-99); Total Carbon Dioxide 28 mmol/L; pCO2 44.7 mmHg (35-45); pH 7.39 (7.35-7.45)
[2020-07-02 12:48] LABS: International Normalized Ratio 1.1; Prothrombin Time (Protime)PT. 13.8 SECONDS (11.7-14.9)
[2020-07-02 12:49] LABS: Partial Thromboplast Time 29.9 Seconds (24.1-36.2)
--- NOTE | 2020-07-02 13:00 | RAD_ITS ---
STUDY: X-RAY - RIGHT HIP REASON FOR EXAM: Female, 79 years old. Trochanteric Fixation Nail. TECHNIQUE: 4 views of the hip. COMPARISON: The liver 07/09/2020. FINDINGS: Intraoperative images demonstrate ORIF of the right femur for an intertrochanteric fracture. Hallway components and bony fragments are well aligned on these limited images. RAD/Hip Min 2 Views (Portable) IMPRESSION: Intraoperative images demonstrate ORIF for a right femoral intertrochanteric fracture.. Electronically Signed: Car Gallardo DO at 16:05 EDT Tel [phone], Service support ,
--- NOTE | 2020-07-02 14:18 | SUR.PREOP ---
pt's ring, gold in color with multiple clear stones, removed with ease from left ring finger. Ring given to pt's by Shaneka Rodriguez.
[2020-07-02] MEDS: Cefazolin 2 GM in 0.9% Normal Saline 100 ML IV (15:06)
[2020-07-02] MEDS: Bupiv/Epi 0.5% Mpf 30 ML Vial (15:49)
--- NOTE | 2020-07-02 15:52 | PCM.PN.HOSP ---
Patient Problems: Active and Suspected Problems (Last Updated 05/31/20 @ 16:56 by Alexa Hernandez) Closed right hip fracture (Acute) Hypokalemia (Acute) Non-ST elevation (NSTEMI) myocardial infarction (Acute) Reason for Visit: Follow-up on right hip fracture/A. fib with RVR Subjective: Patient was seen and examined. No acute events overnight except for slight lethargy. She did not have her BiPAP on last night. ABG showed respiratory acidosis. Patient has surgery this afternoon. She denied any new complaint. Objective: Physical exam: General: Alert, Oriented x3, Cooperative, No apparent distress HEENT: Atraumatic, PERRLA, EOMI, Normocephalic Oral: Dry Mucosa Neck: Supple, No JVD, Negative Carotid Bruits Lungs: - - decreased breath sounds bibasally,fine bibasilar crackles. On 4L of oxygen by nasal canula Cardiovascular: Normal S1, Normal S2, No murmurs, Tachycardic, Abdomen: Bowel Sounds Present, Soft, Non Tender, Non-Distended, No Hepato-splenomegaly Extremities: No clubbing, No cyanosis, No edema, Capillary Refill Less than 3 Seconds, right lower leg in traction Skin: No rashes, No breakdown Musculoskeletal: No Tenderness to Palpation of Joints or Extremities Lymphatic: No Cervical, Supraclavicular, or Inguinal Adenopathy Neurological: Cranial nerves II-XII grossly intact, Neuro grossly intact, Motor Exam 5/5 strength throughout Psych/Mental Status: Normal Affect, Appropriate, Alert and oriented to time, place, person, mood and affect Vitals/I&O's: Vital Signs Temp Pulse Resp BP Pulse Ox 97.9 F 103 H 12 125/60 H 100 07/02/20 10:42 07/02/20 10:42 07/02/20 10:42 07/02/20 10:42 07/02/20 10:42 Oxygen Flow Rate (L/min) 4 Oxygen Delivery Method Bi-pap Weight: 61.3 kg Body Mass Index (BMI) 19.3 Intake and Output for Last 24 Hours 06/30/20 07/01/20 07/02/20 23:59 23:59 23:59 Intake Total 1494.09 / 1579.09 3073.09 / 3139.17 2024.41 / 2023.41 Output Total 925 / 975 525 / 525 190 / 190 Balance 569.09 / 604.09 2548.09 / 2614.17 1834.41 / 1833.41 Laboratory Results 07/01/20 20:17: APTT 56.7 H 07/02/20 06:30: WBC 9.0, RBC 2.78 L, Hgb 8.9 L, Hct 28.5 L, MCV 102.5 H, MCH 32.0, MCHC 31.2 L, RDW Std Deviation 46.7 H, RDW Coeff of Jeff 12.4, Plt Count 148 L, MPV 11.1, Immature Gran % (Auto) 0.700, Neut % (Auto) 83.5 H, Lymph % (Auto) 6.8 L, [place] % (Auto) 8.7, Eos % (Auto) 0.1, Baso % (Auto) 0.2, Absolute Neuts (auto) 7.5, Absolute Lymphs (auto) 0.61 L, Nucleated RBC % 0 07/02/20 06:30: Sodium 135 L, Potassium 4.2, Chloride 104, Carbon Dioxide 28.0, Anion Gap 3 L, BUN 24 H, Creatinine 0.77, Estim Creat Clear Calc 44.87, Est GFR (MDRD) Af Amer 93, Est GFR (MDRD) Non-Af 76, BUN/Creatinine Ratio 31.0 H, Glucose 119 H, Calcium 9.4, Total Bilirubin 1.00, AST 20, ALT 18, Alkaline Phosphatase 52, Total Protein 5.2 L, Albumin 2.5 L, Globulin 2.7, Albumin/Globulin Ratio 0.9 07/02/20 09:32: Specimen Type ART, Sample Site R Radial, pH 7.34 L, Bicarbonate Actual 29.0 H, Total CO2 31, Base Excess 3 H, O2 Saturation 93 L, O2 % 40, ABG pCO2 53.4 H, ABG pO2 71 L, Rigo Test Positive, Respiration Rate 12.0000, O2 Delivery Device BiPAP, Vent Mode NIV 07/02/20 11:50: Specimen Type ART, Sample Site R Radial, pH 7.39, Bicarbonate Actual 26.9 H, Total CO2 28, Base Excess 2, O2 Saturation 97, O2 % 40, ABG pCO2 44.7, ABG pO2 91, Rigo Test Positive, Respiration Rate 12.0000, O2 Delivery Device BiPAP, Vent Mode NIV 07/02/20 12:21: PT 13.8, INR 1.1, APTT 29.9 07/02/20 12:21: Blood Type O POSITIVE, Antibody Screen NEGATIVE 07/02/20 12:21: Crossmatch See Detail Current Medications Acetaminophen (Tylenol) 650 mg PO Q6H PRN PRN PRN Reason: Pain Score 1-10/Temp > 100.7 F Last Admin: 07/01/20 17:38 Dose: 650 mg Documented by: Al Hydroxide/Mg Hydroxide (Mylanta Ii) 30 ml PO Q6H PRN PRN PRN Reason: Gastric Burning Albuterol Sulfate (Ventolin Aerosols) 2.5 mg INHALATION Q2H PRN PRN PRN Reason: Dyspnea, wheezing Albuterol/Ipratropium (Duoneb) 3 ml INHALATION Q6HWA.RT [facility] Last Admin: 07/02/20 07:21 Dose: 3 ml Documented by: Apixaban (Apixaban 2.5 Mg Tablet) 2.5 mg PO BID [facility] Bisacodyl (Dulcolax) 5 mg PO DAILY PRN PRN Reason: Constipation Last Admin: 07/01/20 18:35 Dose: 5 mg Documented by: Budesonide (Pulmicort Aerosol) 0.5 mg INHALATION Q12H.RT [facility] Last Admin: 07/02/20 07:21 Dose: 0.5 mg Documented by: Buspirone HCl (Buspar) 5 mg PO BID [facility] Last Admin: 07/02/20 08:45 Dose: Not Given Documented by: Diltiazem HCl (Cardizem Cd) 240 mg PO DAILY [facility] Last Admin: 07/02/20 10:28 Dose: 240 mg Documented by: Docusate Sodium (Colace) 200 mg PO BID [facility] Last Admin: 07/02/20 08:45 Dose: Not Given Documented by: Famotidine (Pepcid) 20 mg PO BID [facility] Last Admin: 07/02/20 10:29 Dose: 20 mg Documented by: Guaifenesin (Robitussin) 20 ml PO Q4H PRN PRN PRN Reason: COUGH Sodium Chloride () 1,000 mls @ 0 mls/hr IV .Q0M [facility] Sodium Chloride () 1,000 mls @ 100 mls/hr IV .Q10H [facility] Last Admin: 07/02/20 12:32 Dose: 100 mls/hr Documented by: Cefazolin Sodium () 1 gm in 50 mls @ 100 mls/hr IV Q8 [facility] Levothyroxine Sodium (Synthroid) 50 mcg PO DAILY@0600 [facility] Last Admin: 07/02/20 05:21 Dose: 50 mcg Documented by: Magnesium Chloride (Mag64) 128 mg PO DAILY [facility] Last Admin: 07/02/20 10:30 Dose: Not Given Documented by: Melatonin (Melatonin) 3 mg PO QHS PRN PRN PRN Reason: INSOMNIA Metoprolol Tartrate (Lopressor (Beta Aixa)) 25 mg PO BID [facility] Last Admin: 07/02/20 10:29 Dose: 25 mg Documented by: Montelukast Sodium (Singulair) 10 mg PO DAILY@1700 [facility] Last Admin: 07/01/20 16:48 Dose: 10 mg Documented by: Morphine Sulfate () 2 mg IV Q3H PRN PRN PRN Reason: Pain Score 6-10 Last Admin: 06/30/20 14:44 Dose: 2 mg Documented by: Nitroglycerin (Nitrostat) 0.4 mg SUBLINGUAL Q5M PRN PRN Reason: CARDIAC/CHEST PAIN Ondansetron HCl (Zofran) 4 mg IV Q8H PRN PRN PRN Reason: NAUSEA/VOMITING Last Admin: 06/30/20 14:58 Dose: 4 mg Documented by: Ondansetron HCl (Ondansetron 4 Mg/2 Ml Vial) 4 mg IV Q6H PRN PRN PRN Reason: NAUSEA Oxycodone HCl (Oxyir) 5 mg PO Q4H PRN PRN PRN Reason: Pain Score 4-5 Last Admin: 07/02/20 01:47 Dose: 5 mg Documented by: Pol[facility]accharide [facility] ([facility]rex 150) [facility] Last Admin: 07/02/20 08:45 Dose: Not Given Documented by: Prochlorperazine Edisylate (Compazine Iv) 5 mg IV Q4H PRN PRN PRN Reason: Breakthrough Nausea/Vomiting Sertraline HCl (Zoloft) 50 mg PO DAILY [facility] Last Admin: 07/02/20 10:15 Dose: Not Given Documented by: Sodium Chloride () 10 - 40 ml IV UD PRN PRN Reason: SALINE FLUSH Last Admin: 07/02/20 05:21 Dose: 10 ml Documented by: Throat Lozenges (Cepacol Sore Throat Lozenge) 1 lozenge MUCOUS MEM Q2H PRN PRN PRN Reason: SORE THROAT Medical Necessity - Tobacco Use Smoking Status: Former smoker Tobacco Use: Non-smoker Assessment/Plan All Active Problems (Last Updated 05/31/20 @ 16:56 by Alexa Hernandez) Closed right hip fracture (Acute) Hypokalemia (Acute) Non-ST elevation (NSTEMI) myocardial infarction (Acute) Hemoptysis (Resolved) Acute respiratory failure with hypoxia and hypercapnia (Resolved) Ankle edema (Resolved) Atrial fibrillation with rapid ventricular response (Resolved) CAP (community acquired pneumonia) (Resolved) COPD with acute exacerbation (Resolved) Chronic respiratory failure with hypoxia (Resolved) Healthcare-associated pneumonia (Resolved) History of malnutrition (Resolved) Human metapneumovirus (hMPV) pneumonia (Resolved) Leucocytosis (Resolved) Metabolic alkalosis (Resolved) Metabolic encephalopathy (Resolved) Pneumonia (Resolved) Streptococcal pneumonia (Resolved) Thrush (Resolved) 1. Acute right comminuted intertrochanteric fracture of the right femur secondary to mechanical fall Pain is fairly controlled, surgery today Continue current pain regimen 2. Acute displaced fracture of the medial right superior pubic ramus and mid inferior right pubic ramus Orthopedics surgery consulted, conservatively being managed 3. A. fib with RVR, rate controlled, on oral Cardizem. Continue on metoprolol. Off heparin drip for surgery. 4. 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 Hypokalemia, resolved 6. Hypothyroidism, continue levothyroxine 7. Hypertension, controlled, continue on current regimen with Cardizem, metoprolol 8. Anxiety/depression, continue on BuSpar and sertraline 9. DVT PPx- off heparin drip now Inpatient E&M: [id number] [facility] L3
--- NOTE | 2020-07-02 15:52 | PCM.OPRPT ---
Report of Operation Date of Procedure: 07/02/20 Description of Surgical Findings:: Preoperative diagnosis: Right hip intertrochanteric femur fracture with subtrochanteric extension Postoperative diagnosis: Same Procedure: Cephalo-medullary fixation left hip Implants: Synthes long nail 12x 400, 95 mm helical blade, 50 mm screw Anesthesia: General EBL: 50 Complications: None Condition: Stable to PACU Indication for procedure: 79-year-old female sustained a ground-level fall. fracture demonstrated intertrochanteric femur fracture with subtrochanteric extension, risk benefits and alternatives were reviewed including risk of bleeding infection nerve, artery, bone, tissue damage, blood clot, RSD need for further surgery and continued pain. Procedure: Patient met in the preoperative holding area once again the operative extremity was identified by both patient and physician and was marked. Patient was met by anesthesia and IV was started she was brought back to the to the operating room anesthesia was started. She was then positioned on the fracture table all bony prominences were well-padded. She was then positioned with adduction internal rotation and traction and fluoroscopy was brought in to ensure that an adequate reduction could be performed. Patient was then prepped and draped in usual sterile fashion and timeout was called to ensure the proper patient procedure and extremity were being contemplated. Fluoroscopy was used to deni the tip of the greater trochanter and a 3 fingerbreadth incision was made 2 finger breaths proximal to the tip of the greater trochanter. Was carried carried down through the skin and subcutaneous tissue as well as the gluteal fascia. A guide pin was then inserted through the tip of the greater trochanter directed towards the level of lesser trochanter this was checked in both AP and lateral projections. An opening reamer was performed. A guide pin was bent and placed down the femoral canal to the level of the superior patella then measured this and placed the corresponding length nail after flexible reamers were used to achieve cortical chatter and achieving 1.5 mm greater than the nail was chosen . following this was the insertion of the nail the appropriate height jig was used and a triple trocar sleeve was advanced to the skin and a stab incision was made at the trocar was inserted to the level of the bone and a guidepin was placed into the femoral neck and head checked on both AP and lateral projections. This was then measured and appropriately sized helical blade was inserted the nail was locked proximally to allow dynamic compression, the fracture was compressed and a locking screw was placed distally using perfect [place] technique. This was then drilled and measured under fluoroscopy and the appropriate size screw was inserted. Final AP and lateral projections were saved to the PACS system of the entire construct. the wounds were thoroughly irrigated the fascia was closed with #1 [id number] Vicryls followed by 2-0 Vicryl in the subcutaneous tissues followed by alexsander in the skin. 0.5% Marcaine with epinephrine was injected into the subcutaneous tissues dressing was applied form of Xeroform 4 x 4 ABD and Ioban tape. Patient tolerated procedure well there is no intraoperative complications she was brought back to the PACU in stable condition.
[2020-07-02] MEDS: Morphine 2 MG/ML Syringe IV (21:10)
--- NOTE | 2020-07-02 21:19 | CPS ---
Pt wouldn't leave bipap on and was sating low with nasal canula.
[2020-07-02] MEDS: Cefazolin 1 GM/50 ML BAG IV (22:51)
[2020-07-03] VITALS (15 sets, daily range): BP systolic 122–152; BP diastolic 61–71; PULSE 85–103; RESP 16–22; TEMP 36.6–37.3; O2SAT 93–97; BMI 18.4
[2020-07-03] MEDS: Morphine 2 MG/ML Syringe IV (00:14)
[2020-07-03] MEDS: 0.9% Saline Lock 10 ML Syringe IV (00:16)
[2020-07-03 06:13] LABS: Hematocrit 25.4 % (37-47); Hemoglobin 7.9 g/dL (12.0-15.0); Mean Corp Hgb Conc 31.1 g/dL (32-36); Mean Corpuscular Volume 102.8 fL (81-99); Mean Platelet Vol. 11.3 fl (6.2-12.0); Platelet Count 144 K/mm3 (150-450); RBC Distribution Width CV 12.7 % (11.6-14.6); RBC Distribution Width SD 47.8 fl (35.1-43.9); Red Blood Count 2.47 M/mm3 (4.2-5.4); White Blood Count 8.4 K/mm3 (4.4-11.0)
[2020-07-03] MEDS: Cefazolin 1 GM/50 ML BAG IV ×2 (06:26→14:52)
[2020-07-03 06:29] LABS: Anion Gap 7 (5-15); BUN 27 mg/dL (7-18); BUN/Creat Ratio 43.3 RATIO (10-20); Chloride 106 mmol/L (98-107); Creatinine, Serum 0.62 mg/dL (0.55-1.02); EST Glomerular Filtration Rate 98 mL/min (>60); Est Glom Filt Rate - Afr Amer 119 mL/min (>60); Estimated Creatinine Clearance 46.11 ml/min; Glucose 110 mg/dL (74-106); Potassium 4.3 mmol/L (3.5-5.1); Sodium Level 139 mmol/L (136-145)
[2020-07-03] MEDS: Budesonide Respules 0.5 MG/2 ML AMPUL.NEB. INHALATION ×2 (07:21→19:29)
[2020-07-03] MEDS: Ipratropium/Albuterol Sulfate 3 ML AMPUL.NEB INHALATION ×3 (07:21→19:29)
[2020-07-03] MEDS: 0.9% Normal Saline 1,000 ML 100 ML IV (09:38)
[2020-07-03] MEDS: Iron Polysaccharide Complex 150 MG CAPSULE PO (09:46)
[2020-07-03] MEDS: busPIRone 5 MG Tablet PO (09:48)
[2020-07-03] MEDS: Metoprolol Tartrate 25 MG Tablet PO (09:51)
[2020-07-03] MEDS: ROFLUMILAST 500 MCG TABLET PO (09:52)
[2020-07-03] MEDS: dilTIAZem CD 240 MG Capsule PO (09:57)
--- NOTE | 2020-07-03 11:02 | RAD_ITS ---
STUDY: X-RAY CHEST REASON FOR EXAM: Female, 79 years old. SOB, RECENT HIP SURGERY. TECHNIQUE: Single AP portable view of the chest. COMPARISON: Comparison is made with prior study dated 10/30/2019. FINDINGS: EKG electrodes are seen. Hyperinflation. Stable emphysematous changes in the upper lobes worse on the right side with evidence of bullous formation. There now is evidence of a blunting of the left cosmetic angle with left basilar infiltrate. Normal size heart. Normal mediastinum and chris. Normal visualized pulmonary arteries. There is atherosclerotic calcification of the aortic arch with tortuosity. Normal visualized thoracic spine. Normal visualized ribs, clavicles, and shoulders. There is no demonstrated abnormality of the visualized soft tissue structures of the upper abdomen. RAD/Chest 1 View (Portable) IMPRESSION: Left basilar infiltrate with a small left pleural effusion superimposed on scarring and emphysematous changes. Electronically Signed: Ho Schumacher, at 15:03 EDT , Service support ,
--- NOTE | 2020-07-03 11:50 | PCM.PROGNOTE ---
Patient Problems: Active and Suspected Problems (Last Updated 05/31/20 @ 16:56 by Alexa Hernandez) Closed right hip fracture (Acute) Hypokalemia (Acute) Non-ST elevation (NSTEMI) myocardial infarction (Acute) - Physical Exam Vitals/I&O's: Vital Signs Temp Pulse Resp BP Pulse Ox 99.1 F 101 H 16 152/71 H 95 07/03/20 09:16 07/03/20 09:51 07/03/20 09:16 07/03/20 09:16 07/03/20 09:16 Oxygen Flow Rate (L/min) 12 Oxygen Delivery Method Venturi Mask Weight: 63 kg Body Mass Index (BMI) 19.3 Intake and Output for Last 24 Hours 07/01/20 07/02/20 07/03/20 23:59 23:59 23:59 Intake Total 3073.09 / 3139.17 3256.08 / 3256.08 1005.00 / 1005.00 Output Total 525 / 525 480 / 480 100 / 100 Balance 2548.09 / 2614.17 2776.08 / 2776.08 905.00 / 905.00 General: Alert, Oriented x3, Cooperative HEENT: Atraumatic, PERRLA, EOMI, Normocephalic Oral: Dry Mucosa Neck: Supple, No JVD, Negative Carotid Bruits Lungs: - - decr bs, no rales no wheeze no rhonchi, very poor air mvt. tachypnea w/ some acces m use Cardiovascular: No murmurs, - - rate controlled afib Abdomen: Bowel Sounds Present, Soft, Non Tender Extremities: No edema, Capillary Refill Less than 3 Seconds Skin: No rashes, No breakdown Musculoskeletal: No Tenderness to Palpation of Joints or Extremities Neurological: Cranial nerves II-XII grossly intact Psych/Mental Status: Normal Affect, Appropriate Laboratory Results 07/02/20 11:50: Specimen Type ART, Sample Site R Radial, pH 7.39, Bicarbonate Actual 26.9 H, Total CO2 28, Base Excess 2, O2 Saturation 97, O2 % 40, ABG pCO2 44.7, ABG pO2 91, Rigo Test Positive, Respiration Rate 12.0000, O2 Delivery Device BiPAP, Vent Mode NIV 07/02/20 12:21: PT 13.8, INR 1.1, APTT 29.9 07/02/20 12:21: Blood Type O POSITIVE, Antibody Screen NEGATIVE 07/02/20 12:21: Crossmatch See Detail 07/03/20 05:34: WBC 8.4, RBC 2.47 L, Hgb 7.9 L, Hct 25.4 L, MCV 102.8 H, MCH 32.0, MCHC 31.1 L, RDW Std Deviation 47.8 H, RDW Coeff of Jeff 12.7, Plt Count 144 L, MPV 11.3 07/03/20 05:34: Sodium 139, Potassium 4.3, Chloride 106, Carbon Dioxide 26.0, Anion Gap 7, BUN 27 H, Creatinine 0.62, Estim Creat Clear Calc 46.11, Est GFR (MDRD) Af Amer 119, Est GFR (MDRD) Non-Af 98, BUN/Creatinine Ratio 43.3 H, Glucose 110 H, Calcium 9.0 Current Medications Acetaminophen (Tylenol) 650 mg PO Q6H PRN PRN PRN Reason: Pain Score 1-10/Temp > 100.7 F Last Admin: 07/01/20 17:38 Dose: 650 mg Documented by: Al Hydroxide/Mg Hydroxide (Mylanta Ii) 30 ml PO Q6H PRN PRN PRN Reason: Gastric Burning Albuterol Sulfate (Ventolin Aerosols) 2.5 mg INHALATION Q2H PRN PRN PRN Reason: Dyspnea, wheezing Albuterol/Ipratropium (Duoneb) 3 ml INHALATION Q6HWA.RT [facility] Last Admin: 07/03/20 07:21 Dose: 3 ml Documented by: Apixaban (Apixaban 2.5 Mg Tablet) 2.5 mg PO BID@0700,1900 [facility] Bisacodyl (Dulcolax) 5 mg PO DAILY PRN PRN Reason: Constipation Last Admin: 07/01/20 18:35 Dose: 5 mg Documented by: Budesonide (Pulmicort Aerosol) 0.5 mg INHALATION Q12H.RT [facility] Last Admin: 07/03/20 07:21 Dose: 0.5 mg Documented by: Buspirone HCl (Buspar) 5 mg PO BID [facility] Last Admin: 07/03/20 09:48 Dose: 5 mg Documented by: Diltiazem HCl (Cardizem Cd) 240 mg PO DAILY [facility] Last Admin: 07/03/20 09:57 Dose: 240 mg Documented by: Docusate Sodium (Colace) 200 mg PO BID [facility] Last Admin: 07/03/20 09:57 Dose: Not Given Documented by: Famotidine (Pepcid) 20 mg PO BID [facility] Last Admin: 07/03/20 09:56 Dose: Not Given Documented by: Guaifenesin (Robitussin) 20 ml PO Q4H PRN PRN PRN Reason: COUGH Sodium Chloride () 1,000 mls @ 0 mls/hr IV .Q0M [facility] Sodium Chloride () 1,000 mls @ 100 mls/hr IV .Q10H [facility] Last Admin: 07/03/20 09:38 Dose: 100 mls/hr Documented by: Cefazolin Sodium () 1 gm in 50 mls @ 100 mls/hr IV Q8H [facility] Stop: 07/03/20 15:29 Last Infusion: 07/03/20 06:56 Dose: Infused Documented by: Levothyroxine Sodium (Synthroid) 50 mcg PO DAILY@0600 [facility] Last Admin: 07/03/20 05:56 Dose: Not Given Documented by: Magnesium Chloride (Magnesium Chloride 64 Mg Delay Rel.Tablet) 128 mg PO DAILY [facility] Last Admin: 07/03/20 09:56 Dose: Not Given Documented by: Melatonin (Melatonin) 3 mg PO QHS PRN PRN PRN Reason: INSOMNIA Metoprolol Tartrate (Lopressor (Beta Aixa)) 25 mg PO BID [facility] Last Admin: 07/03/20 09:51 Dose: 25 mg Documented by: Montelukast Sodium (Singulair) 10 mg PO DAILY@1700 [facility] Last Admin: 07/02/20 17:44 Dose: Not Given Documented by: Morphine Sulfate () 2 mg IV Q3H PRN PRN PRN Reason: Pain Score 6-10 Last Admin: 07/03/20 00:14 Dose: 2 mg Documented by: Nitroglycerin (Nitrostat) 0.4 mg SUBLINGUAL Q5M PRN PRN Reason: CARDIAC/CHEST PAIN Ondansetron HCl (Ondansetron 4 Mg/2 Ml Vial) 4 mg IV Q6H PRN PRN PRN Reason: NAUSEA Oxycodone HCl (Oxyir) 5 mg PO Q4H PRN PRN PRN Reason: Pain Score 4-5 Last Admin: 07/02/20 01:47 Dose: 5 mg Documented by: Polysaccharide Iron [facility] ([facility] 150) [facility] Last Admin: 07/03/20 09:46 Dose: 150 mg Documented by: Prochlorperazine Edisylate (Compazine Iv) 5 mg IV Q4H PRN PRN PRN Reason: Breakthrough Nausea/Vomiting Sertraline HCl (Zoloft) 50 mg PO DAILY [facility] Last Admin: 07/03/20 09:56 Dose: Not Given Documented by: Sodium Chloride () 10 - 40 ml IV UD PRN PRN Reason: SALINE FLUSH Last Admin: 07/03/20 00:16 Dose: 10 ml Documented by: Throat Lozenges (Cepacol Sore Throat Lozenge) 1 lozenge MUCOUS MEM Q2H PRN PRN PRN Reason: SORE THROAT Medical Necessity - Tobacco Use Smoking Status: Former smoker Tobacco Use: Non-smoker Assessment/Plan All Active Problems (Last Updated 05/31/20 @ 16:56 by Alexa Hernandez) Closed right hip fracture (Acute) Hypokalemia (Acute) Non-ST elevation (NSTEMI) myocardial infarction (Acute) Hemoptysis (Resolved) Acute respiratory failure with hypoxia and hypercapnia (Resolved) Ankle edema (Resolved) Atrial fibrillation with rapid ventricular response (Resolved) CAP (community acquired pneumonia) (Resolved) COPD with acute exacerbation (Resolved) Chronic respiratory failure with hypoxia (Resolved) Healthcare-associated pneumonia (Resolved) History of malnutrition (Resolved) Human metapneumovirus (hMPV) pneumonia (Resolved) Leucocytosis (Resolved) Metabolic alkalosis (Resolved) Metabolic encephalopathy (Resolved) Pneumonia (Resolved) Streptococcal pneumonia (Resolved) Thrush (Resolved) Chronic resp failure. pt is working to breath. pt has some acces m usage and is c/o sob. suggest abg Suggest resuming Bipap. pt is to have good pain control w/out suppr of resp drive. pt is lethargic. pt will need neb alb atrovent nebulized every 4 hours Incentive spirometry every 1 hour while awake PA and lateral chest in the a.m. tomorrow Chest PT twice daily is warranted CODE STATUS should be addressed At this point return mechanical ventilation is warranted Consider rechecking hemoglobin and hydrating the patient fully and considering 1 or 2 units of blood and hemoglobin 7.9
[2020-07-03 12:26] LABS: Allen Test Positive; Base Excess 0 mmol/L (-2 to +2); Bicarbonate 25.5 mmol/L (22-26); Blood Gas Specimen Type ART; FI02 50; O2 Delivery Device Venti Mask; PO2 85 mmHG (75-100); SITE R Radial; SO2 96 % (95-99); Total Carbon Dioxide 27 mmol/L; pCO2 45.7 mmHg (35-45); pH 7.35 (7.35-7.45)
[2020-07-03 12:51] LABS: Hematocrit 26.3 % (37-47); Hemoglobin 8.2 g/dL (12.0-15.0)
--- NOTE | 2020-07-03 21:54 | PCM.HOSP.N ---
Hospitalist Note for nursing that he would like to discuss with the physician about hospice. I went to see the patient and her in the room. Patient is confused and unable provide any history whatsoever so discussion was held with her . He wishes to proceed with hospice care. He stated that she said that she want to close her eyes and essentially . He feels that hospice would be most appropriate for her. Discussed with him with hospice, focus on symptoms and hospice dispositions outside the hospital. Informed him that we would have the hospice team come speak with him and family members regards to how they work and other details. He is in agreement with that. I told him that we are going to de-escalate medications and focus directly on comfort and that I would make her DNR comfort care only. He was in agreement with all that. Greater than 20 minutes spent discussing with patient in regards to advanced care planning, DNR, hospice and treatment. Procedures: 56133 Advncd Care Plan 30 Min
--- NOTE | 2020-07-03 22:11 | CPS ---
FAMILY REQUESTED PATIENT SWITCHED TO CANNULLA. PATIENT PLACED ON 7 LPM HFNC. FAMILY REFUSED BIPAP.
[2020-07-03] MEDS: morphine (oral solution) 10MG/0.5ML Syringe 10 MG SL/PO (23:10)
--- NOTE | 2020-07-03 23:17 | CPS ---
family refused treatment and bipap.
[2020-07-04 03:00] VITALS: PULSE 100
--- NOTE | 2020-07-04 03:17 | CPS ---
FAMILY REFUSED TREATMENT.
[2020-07-04 04:00] VITALS: BP 156/74; PULSE 74; RESP 18; TEMP 36.4; O2SAT 94
--- NOTE | 2020-07-04 04:09 | PCM.PN.HOSP ---
Patient Problems: Active and Suspected Problems (Last Updated 05/31/20 @ 16:56 by Alexa Hernandez) Closed right hip fracture (Acute) Hypokalemia (Acute) Non-ST elevation (NSTEMI) myocardial infarction (Acute) Reason for Visit: Follow-up on right hip fracture/A. fib with RVR - late entry note - patient was seen on 07/03/20 at 8am Subjective: Patient was seen and examined. She remains lethargic and has increased work of breathing. Seen feeding patient. Patient appeared to be clearing the throat. Stopped , speech therapy consulted for concern for aspiration. ABGs done showed hypoxia. Discussed with Dr. King who agreed with patient's poor prognosis. Decided on Bipap. Discussed with about patient's poor prognosis. I introduced Hospice and said it will be re-evaluated in the next 24 hours. Objective: Physical exam: General: Alert, Oriented x3, Cooperative, No apparent distress HEENT: Atraumatic, PERRLA, EOMI, Normocephalic Oral: Dry Mucosa Neck: Supple, No JVD, Negative Carotid Bruits Lungs: - - decreased breath sounds bibasally,fine bibasilar crackles. On 4L of oxygen by nasal canula Cardiovascular: Normal S1, Normal S2, No murmurs, Tachycardic, Abdomen: Bowel Sounds Present, Soft, Non Tender, Non-Distended, No Hepato-splenomegaly Extremities: No clubbing, No cyanosis, No edema, Capillary Refill Less than 3 Seconds, right lower leg in traction Skin: No rashes, No breakdown Musculoskeletal: No Tenderness to Palpation of Joints or Extremities Lymphatic: No Cervical, Supraclavicular, or Inguinal Adenopathy Neurological: Cranial nerves II-XII grossly intact, Neuro grossly intact, Motor Exam 5/5 strength throughout Psych/Mental Status: Normal Affect, Appropriate, Alert and oriented to time, place, person, mood and affect Vitals/I&O's: Vital Signs Temp Pulse Resp BP Pulse Ox 97.6 F L 74 18 156/74 H 94 07/04/20 04:00 07/04/20 04:00 07/04/20 04:00 07/04/20 04:00 07/04/20 04:00 Oxygen Flow Rate (L/min) 10 Oxygen Delivery Method Nasal Cannula Weight: 63 kg Body Mass Index (BMI) 19.3 Intake and Output for Last 24 Hours 07/02/20 07/03/20 07/04/20 23:59 23:59 23:59 Intake Total 3256.08 / 3256.08 1225.00 / 1225.00 Output Total 480 / 480 650 / 650 Balance 2776.08 / 2776.08 575.00 / 575.00 Laboratory Results 07/03/20 05:34: WBC 8.4, RBC 2.47 L, Hgb 7.9 L, Hct 25.4 L, MCV 102.8 H, MCH 32.0, MCHC 31.1 L, RDW Std Deviation 47.8 H, RDW Coeff of Jeff 12.7, Plt Count 144 L, MPV 11.3 07/03/20 05:34: Sodium 139, Potassium 4.3, Chloride 106, Carbon Dioxide 26.0, Anion Gap 7, BUN 27 H, Creatinine 0.62, Estim Creat Clear Calc 46.11, Est GFR (MDRD) Af Amer 119, Est GFR (MDRD) Non-Af 98, BUN/Creatinine Ratio 43.3 H, Glucose 110 H, Calcium 9.0 07/03/20 12:21: Specimen Type ART, Sample Site R Radial, pH 7.35, Bicarbonate Actual 25.5, Total CO2 27, Base Excess 0, O2 Saturation 96, O2 % 50, ABG pCO2 45.7 H, ABG pO2 85, Rigo Test Positive, O2 Delivery Device Venti Mask 07/03/20 12:41: Hgb 8.2 L, Hct 26.3 L Current Medications Acetaminophen (Tylenol) 650 mg PO Q6H PRN PRN PRN Reason: Pain Score 1-10/Temp > 100.7 F Last Admin: 07/01/20 17:38 Dose: 650 mg Documented by: Albuterol Sulfate (Ventolin Aerosols) 2.5 mg INHALATION Q2H PRN PRN PRN Reason: Dyspnea, wheezing Albuterol/Ipratropium (Ipratropium/Albuterol Sulfate 3 Ml Ampul.Neb) 3 ml INHALATION Q4H.RT [facility] Last Admin: 07/03/20 19:29 Dose: 3 ml Documented by: Lorazepam (Lorazepam 2 Mg/Ml Bottle) 1 mg PO Q4H PRN PRN PRN Reason: ANXIETY Melatonin (Melatonin) 3 mg PO QHS PRN PRN PRN Reason: INSOMNIA Morphine Sulfate (Morphine (Oral Solution) 10mg/0.5ml Syringe) 10 mg SL/PO Q1H PRN PRN PRN Reason: Pain Score 6-10 Last Admin: 07/03/20 23:10 Dose: 10 mg Documented by: Sertraline HCl (Zoloft) 50 mg PO DAILY [facility] Last Admin: 07/03/20 09:56 Dose: Not Given Documented by: Throat Lozenges (Cepacol Sore Throat Lozenge) 1 lozenge MUCOUS MEM Q2H PRN PRN PRN Reason: SORE THROAT STROKE Vital Signs/Narrative: Vital Signs Temp Pulse Resp BP Pulse Ox 07/04/20 04:00 97.6 F L 74 18 156/74 H 94 07/04/20 03:00 100 Medical Necessity - Tobacco Use Smoking Status: Former smoker Tobacco Use: Non-smoker Assessment/Plan All Active Problems (Last Updated 05/31/20 @ 16:56 by Alexa Hernandez) Closed right hip fracture (Acute) Hypokalemia (Acute) Non-ST elevation (NSTEMI) myocardial infarction (Acute) Hemoptysis (Resolved) Acute respiratory failure with hypoxia and hypercapnia (Resolved) Ankle edema (Resolved) Atrial fibrillation with rapid ventricular response (Resolved) CAP (community acquired pneumonia) (Resolved) COPD with acute exacerbation (Resolved) Chronic respiratory failure with hypoxia (Resolved) Healthcare-associated pneumonia (Resolved) History of malnutrition (Resolved) Human metapneumovirus (hMPV) pneumonia (Resolved) Leucocytosis (Resolved) Metabolic alkalosis (Resolved) Metabolic encephalopathy (Resolved) Pneumonia (Resolved) Streptococcal pneumonia (Resolved) Thrush (Resolved) 1. POD #1, s/p hip surgery for acute right comminuted intertrochanteric fracture of the right femur secondary to mechanical fall Pain is fairly controlled, patient is lethargic, will continue to monitor. 2. Acute on chronic hypoxic respiratory failure in the setting of chronic fibrosis and COPD Patient appears to be slightly fluid overloaded. Unable to give Lasix on account of severe allergy - hives. Cannot give ethacrynic acid as it is unavailable in the hospital Will get Chest X-ray. D/W DR King, consulted, overall prognosis is poor, will alternate bipap with venturi mask 3. Acute displaced fracture of the medial right superior pubic ramus and mid inferior right pubic ramus Orthopedics surgery consulted, conservatively being managed 4. A. fib with RVR, rate controlled, on oral Cardizem. Continue on metoprolol. Off heparin drip postsurgerysurgery. 5. Chronic hypoxic respiratory failure secondary to chronic fibrosis/COPD, patient remains on 4 L of oxygen Continue on Roflumilast, Singulair, Breo Ellipta and Umeclidinium as well as breathing treatments 6. Hypokalemia, resolved 7. Hypothyroidism, continue levothyroxine 8. Hypertension, controlled, continue on current regimen with Cardizem, metoprolol 9. Anxiety/depression, continue on BuSpar and sertraline 10. DVT PPx- off heparin drip now Inpatient E&M: [id number] [facility] Hosp L2
[2020-07-04] MEDS: Ipratropium/Albuterol Sulfate 3 ML AMPUL.NEB INHALATION ×2 (07:24→11:09)
[2020-07-04 08:00] VITALS: BP 130/71; PULSE 105; RESP 32; TEMP 36.4; O2SAT 94
[2020-07-04] MEDS: morphine (oral solution) 10MG/0.5ML Syringe 10 MG SL/PO ×2 (08:06→14:06)
--- NOTE | 2020-07-04 09:06 | DCINST_ITS ---
- Discharge Diagnoses Current Active Problems: Current Active and Chronic Problems (Last Updated 05/31/20 @ 16:56 by Alexa Hernandez) Closed right hip fracture (Acute) Hypokalemia (Acute) Pulmonary fibrosis (Chronic) Chronic respiratory failure with hypoxia (Chronic) Chronic anemia (Chronic) Hypothyroidism (Chronic) GERD (gastroesophageal reflux disease) (Chronic) RLS (restless legs syndrome) (Chronic) Anxiety and depression (Chronic) Non-ST elevation (NSTEMI) myocardial infarction (Acute) Reason(s) for Visit for Discharge Instructions: Right hip fracture You will use the following diet at home:: Other - NPO Allergies/Adverse Reactions: Allergies amoxicillin trihydrate [From Augmentin] Allergy (Verified 05/23/20 12:59) Rash gluten Allergy (Verified 05/23/20 12:59) Other potassium clavulanate [From Augmentin] Allergy (Verified 05/23/20 12:59) Rash risperidone [From Risperdal] Adverse Reaction (Severe, Verified 05/23/20 12:59) Hallucinations esomeprazole magnesium [From Nexium] Adverse Reaction (Verified 05/23/20 12:59) Itching furosemide [From Lasix] Adverse Reaction (Verified 05/23/20 12:59) Hives Sulfa (Sulfonamide Antibiotics) Adverse Reaction (Verified 05/23/20 12:59) CONFUSION sulfamethoxazole [From Bactrim] Adverse Reaction (Verified 05/23/20 12:59) CONFUSION trimethoprim [From Bactrim] Adverse Reaction (Verified 05/23/20 12:59) CONFUSION Medications to take at Discharge Levothyroxine [Synthroid] 50 mcg PO DAILY 07/12/17 busPIRone [Buspar] 5 mg PO BID 07/23/17 Sertraline HCl [Zoloft] 50 mg PO DAILY 09/13/17 Famotidine [Pepcid] 20 mg PO BID #60 tab 09/24/17 roflumilast 500 mcg tablet 500 mcg PO QDAY 12/03/17 Iron Polysaccharide Complex [Ferrex 150] 150 mg PO DAILYCM 01/26/18 Magnesium Oxide [Mag-Ox 400] 400 mg PO DAILY@0800 02/04/18 Montelukast [Singulair] 10 mg PO DAILY@1700 #30 tab 02/17/18 azithromycin 250 mg tablet 250 mg PO DAILY 12/06/18 umeclidinium 62.5 mcg/actuation blister powder for inhalation 1 inh INHALATION DAILY 10/25/19 Fluticasone/Vilanterol [Breo Ellipta 200-25 Mcg INH] 1 ea IH DAILY 03/01/20 Albuterol Aerosols [Ventolin Aerosols] 2.5 mg INHALATION Q2H PRN PRN #1 box 03/04/20 Cefdinir [Omnicef [equiv]] 300 mg PO Q12H #10 cap 03/04/20 Guaifenesin [Mucinex] 1,200 mg PO BID #20 tab 03/04/20 diltiazem HCl 240 mg capsule,extended release 24 hr 240 mg PO QDAY #90 cap 03/21/20 Polyethylene Glycol 3350 [Miralax] 17 gm PO DAILY #5 packet 05/14/20 hydrochlorothiazide 25 mg tablet 25 mg PO DAILY #90 tab 05/23/20 Primary Care Physician: Alexey Herman MD [Primary Care Provider] - Test Results: Test results from this visit will be discussed in further detail at your follow- up appointment, if applicable. Proposed Discharge Date: 07/04/20
--- NOTE | 2020-07-04 09:07 | DS.PCM_ITS ---
Discharge Date and Diagnosis - Problem List Patient Problems: Active and Suspected Problems (Last Updated 05/31/20 @ 16:56 by Alexa Hernandez) Closed right hip fracture (Acute) Hypokalemia (Acute) Non-ST elevation (NSTEMI) myocardial infarction (Acute) Date of Admission: 06/29/20 Date of Discharge: 07/04/20 - Primary Discharge Diagnosis Acute Problems: Active Problems (Last Updated 05/31/20 @ 16:56 by Alexa Hernandez) Closed right hip fracture (Acute), status post hip surgery Acute displaced fracture of the medial right superior and mid inferior right pubic rami Hypokalemia (Acute) Acute on chronic hypoxic respiratory failure A. fib with RVR Debility - Secondary Discharge Diagnosis Chronic Problems: Chronic Problems (Last Updated 05/31/20 @ 16:56 by Alexa Hernandez) Pulmonary fibrosis (Chronic) Chronic respiratory failure with hypoxia (Chronic) Chronic anemia (Chronic) Hypothyroidism (Chronic) GERD (gastroesophageal reflux disease) (Chronic) RLS (restless legs syndrome) (Chronic) Anxiety and depression (Chronic) Secondary pulmonary arterial hypertension (Chronic) Left ventricular diastolic dysfunction (Chronic) Persistent atrial fibrillation (Chronic) Essential (primary) hypertension (Chronic) COPD (chronic obstructive pulmonary disease) (Chronic) Hospital Course and Treatment Imaging Results: Clinical Impression(s) from Imaging Studies Chest X-Ray 06/29/20 20:34 IMPRESSION: Diffuse fibrotic/emphysematous changes of the lungs appearing stable in the interval. There is no evidence of hemo or pneumothorax or pulmonary contusion. Electronically Signed: Miles Bishop MD at 22:27 EDT , Service support , Hip/Pelvis X-Ray 06/29/20 21:14 IMPRESSION: 1. Comminuted intertrochanteric fracture of the right femur. 2. Slightly displaced fracture of the medial right superior pubic ramus, and also suspected nondisplaced fracture of the mid inferior right pubic ramus. Electronically Signed: Miles Bishop MD at 22:33 EDT , Service support , Femur X-Ray 06/29/20 23:00 IMPRESSION: Minimal change in intertrochanteric right proximal femur fracture. at 0509 Reported and signed by: Latonya Barbour MD Electronically Signed: Latonya Barbour MD at 5:09 EDT Tel , Service support , Hip X-Ray 07/02/20 13:00 IMPRESSION: Intraoperative images demonstrate ORIF for a right femoral intertrochanteric fracture.. Electronically Signed: Car Gallardo DO at 16:05 EDT Tel [phone], Service support , Chest X-Ray 07/03/20 11:02 IMPRESSION: Left basilar infiltrate with a small left pleural effusion superimposed on scarring and emphysematous changes. Electronically Signed: Ho Schumacher, at 15:03 EDT , Service support , Orthopedic surgery Cardiology Operations: total hip replacement - Status post right hip cephalo-medullary fixation on 07/02/20 Procedures: 2-D Echocardiogram - EF 60%, unable to assess diastolic dysfunction Summary of Care Provided: The patient is a 79 year old F with past medical history of chronic hypoxic respiratory failure secondary COPD and pulmonary fibrosis, on 4 L of oxygen, follows with Dr. King, chronic atrial fibrillation, hypertension who comes in as a direct admission from the [place] [facility] on 06/29/20 after a mechanical fall was working in her kitchen. Patient fell onto her right hip with intermittent pain, deformity and debility. Her vitals in the outside hospital were stable. X-ray of the hip showed acute comminuted intertrochanteric femur fracture with varus angulation. Patient was admitted to the PCU and found to be hypokalemic. Potassium was replaced. She went into A. fib with RVR. Orthopedics, cardiology and pulmonology were consulted for risk assessment for surgery. Patient was started on heparin and Cardizem drip. Patient was opted Cardizem drip at time of surgery. She underwent right hip cephalo-medullary nailing under spinal anesthesia on 07/02/20. Postoperatively, patient was found to be lethargic, having increased work of breathing. Chest x-ray was unchanged from previous. Patient was maintained on BiPAP with nasal cannula breaks. Discussed with Dr. King, patient had poor prognosis. Discussed with her who wanted the patient on hospice. Hospice was consulted and patient was admitted to the inpatient hospice facility. Patient Problems: Active and Suspected Problems (Last Updated 05/31/20 @ 16:56 by Alexa Hernandez) Closed right hip fracture (Acute) Hypokalemia (Acute) Non-ST elevation (NSTEMI) myocardial infarction (Acute) Subjective: On the day of discharge, patient was seen and examined. Overnight, she was restless and lethargic. Medicated with morphine. Her had indicated that she was ready for patient to be transitioned to hospice. Objective: Physical exam: General: Alert, Oriented x3, Cooperative, No apparent distress HEENT: Atraumatic, PERRLA, EOMI, Normocephalic Oral: Dry Mucosa Neck: Supple, No JVD, Negative Carotid Bruits Lungs: - - decreased breath sounds bibasally,fine bibasilar crackles. On 4L of oxygen by nasal canula Cardiovascular: Normal S1, Normal S2, No murmurs, Tachycardic, Abdomen: Bowel Sounds Present, Soft, Non Tender, Non-Distended, No Hepato- splenomegaly Extremities: No clubbing, No cyanosis, No edema, Capillary Refill Less than 3 Seconds, right lower leg in traction Skin: No rashes, No breakdown Musculoskeletal: No Tenderness to Palpation of Joints or Extremities Lymphatic: No Cervical, Supraclavicular, or Inguinal Adenopathy Neurological: Cranial nerves II-XII grossly intact, Neuro grossly intact, Motor Exam 5/5 strength throughout Psych/Mental Status: Normal Affect, Appropriate, Alert and oriented to time, place, person, mood and affect - Physical Exam Vitals/I&O's: Vital Signs Temp Pulse Resp BP Pulse Ox 97.6 F L 74 18 156/74 H 94 07/04/20 04:00 07/04/20 04:00 07/04/20 04:00 07/04/20 04:00 07/04/20 04:00 Oxygen Flow Rate (L/min) 10 Oxygen Delivery Method Nasal Cannula Weight: 62.5 kg Body Mass Index (BMI) 19.3 Intake and Output for Last 24 Hours 07/02/20 07/03/20 07/04/20 23:59 23:59 23:59 Intake Total 3256.08 / 3256.08 1225.00 / 1225.00 0 / 0 Output Total 480 / 480 650 / 650 100 / 100 Balance 2776.08 / 2776.08 575.00 / 575.00 -100 / -100 Laboratory Results 07/03/20 12:21: Specimen Type ART, Sample Site R Radial, pH 7.35, Bicarbonate Actual 25.5, Total CO2 27, Base Excess 0, O2 Saturation 96, O2 % 50, ABG pCO2 45.7 H, ABG pO2 85, Rigo Test Positive, O2 Delivery Device Venti Mask 07/03/20 12:41: Hgb 8.2 L, Hct 26.3 L Current Medications Acetaminophen (Tylenol) 650 mg PO Q6H PRN PRN PRN Reason: Pain Score 1-10/Temp > 100.7 F Last Admin: 07/01/20 17:38 Dose: 650 mg Documented by: Albuterol Sulfate (Ventolin Aerosols) 2.5 mg INHALATION Q2H PRN PRN PRN Reason: Dyspnea, wheezing Albuterol/Ipratropium (Ipratropium/Albuterol Sulfate 3 Ml Ampul.Neb) 3 ml INHALATION Q4H.RT STEVE Last Admin: 07/04/20 07:24 Dose: 3 ml Documented by: Lorazepam (Lorazepam 2 Mg/Ml Bottle) 1 mg PO Q4H PRN PRN PRN Reason: ANXIETY Melatonin (Melatonin) 3 mg PO QHS PRN PRN PRN Reason: INSOMNIA Morphine Sulfate (Morphine (Oral Solution) 10mg/0.5ml Syringe) 10 mg SL/PO Q1H PRN PRN PRN Reason: Pain Score 6-10 Last Admin: 07/04/20 08:06 Dose: 10 mg Documented by: Sertraline HCl (Zoloft) 50 mg PO DAILY [facility] Last Admin: 07/03/20 09:56 Dose: Not Given Documented by: Throat Lozenges (Cepacol Sore Throat Lozenge) 1 lozenge MUCOUS MEM Q2H PRN PRN PRN Reason: SORE THROAT Discharge Diet: No Restrictions Home Medications: Medications to take at Discharge Levothyroxine [Synthroid] 50 mcg PO DAILY 07/12/17 busPIRone [Buspar] 5 mg PO BID 07/23/17 Sertraline HCl [Zoloft] 50 mg PO DAILY 09/13/17 Famotidine [Pepcid] 20 mg PO BID #60 tab 09/24/17 roflumilast 500 mcg tablet 500 mcg PO QDAY 12/03/17 Iron Polysaccharide Complex [Ferrex 150] 150 mg PO DAILYCM 01/26/18 Magnesium Oxide [Mag-Ox 400] 400 mg PO DAILY@0800 02/04/18 Montelukast [Singulair] 10 mg PO DAILY@1700 #30 tab 02/17/18 azithromycin 250 mg tablet 250 mg PO DAILY 12/06/18 umeclidinium 62.5 mcg/actuation blister powder for inhalation 1 inh INHALATION DAILY 10/25/19 Fluticasone/Vilanterol [Breo Ellipta 200-25 Mcg INH] 1 ea IH DAILY 03/01/20 Albuterol Aerosols [Ventolin Aerosols] 2.5 mg INHALATION Q2H PRN PRN #1 box 03/04/20 Cefdinir [Omnicef [equiv]] 300 mg PO Q12H #10 cap 03/04/20 Guaifenesin [Mucinex] 1,200 mg PO BID #20 tab 03/04/20 diltiazem HCl 240 mg capsule,extended release 24 hr 240 mg PO QDAY #90 cap 03/21/20 Polyethylene Glycol 3350 [Miralax] 17 gm PO DAILY #5 packet 05/14/20 hydrochlorothiazide 25 mg tablet 25 mg PO DAILY #90 tab 05/23/20 Primary Care Physician: Alexey Herman MD [Primary Care Provider] - Disposition: Hospice Medical Facility Minutes spent on discharge:: 55 Patient Condition:: Stable Medical Necessity - Tobacco Use Smoking Status: Former smoker Tobacco Use: Non-smoker Meaningful Use Info Meaningful Use Diagnoses (Choose all that apply): None applicable Inpatient E&M: 23741 Disch Hosp
--- NOTE | 2020-07-04 09:07 | CASEMGMT ---
Referral was put in for Hospice. [place] faxed information to Hospice. SW called Hospice and spoke with [place]. She said Dr Cooper will need to call Dr Zuleta. The client liaison will be at [facility] at 930 to talk with patient's family. Lillian DUBOIS MSW
[2020-07-04 10:00] VITALS: RESP 20; O2SAT 94
== END 2020-07-04 14:45 | disposition hospice, inpatient (51) | DRG 956 ==
PROVIDERS: Anesthesiology; Internal Medicine Interventional Cardiology; Orthopaedic Surgery; Student in an Organized Health Care Education/Training Program; Admitting Provider Family Medicine; PCP Family Medicine; Visit Provider Internal Medicine
PROC: 0QS606Z Reposition Right Upper Femur with Intramedullary Internal Fixation Device, Open Approach (ICD-10-PCS; principal; 2020-07-02 12:30)
DX: S72.141A Displaced intertrochanteric fracture of right femur, initial encounter for closed fracture (principal); S32.591A Other specified fracture of right pubis, initial encounter for closed fracture; J96.21 Acute and chronic respiratory failure with hypoxia; J96.11 Chronic respiratory failure with hypoxia; I48.19 Other persistent atrial fibrillation; E87.2 Acidosis; E87.6 Hypokalemia; T50.2X5A Adverse effect of carbonic-anhydrase inhibitors, benzothiadiazides and other diuretics, initial encounter; J44.9 Chronic obstructive pulmonary disease, unspecified; I27.21 Secondary pulmonary arterial hypertension; I10 Essential (primary) hypertension; J84.10 Pulmonary fibrosis, unspecified; D50.9 Iron deficiency anemia, unspecified; E03.9 Hypothyroidism, unspecified; K21.9 Gastro-esophageal reflux disease without esophagitis; F32.9 Major depressive disorder, single episode, unspecified; F41.9 Anxiety disorder, unspecified; W18.30XA Fall on same level, unspecified, initial encounter; Y93.01 Activity, walking, marching and hiking; Y92.000 Kitchen of unspecified non-institutional (private) residence as the place of occurrence of the external cause; Y99.9 Unspecified external cause status; Z79.890 Hormone replacement therapy; Z79.899 Other long term (current) drug therapy; Z87.891 Personal history of nicotine dependence; Z23 Encounter for immunization
CPT/HCPCS: 36415; 36600; 71045; 73502; 73552; 76000; 80048; 80053; 81002; 82803; 83735; 84439; 84443; 84484; 85014; 85018; 85025; 85027; 85610; 85730; 86850; 86900; 86901; 86920; 86922; 87635; 93005; 93306; 94002; 94003; 94640; 97163; 97166; 97802; 99251; C1713; C1776; G0008; J7030; J7040; J7120; 90686; A4216; G0463; J2405; U0003